=== PATIENT | male | born 1940 | race Caucasian/White ===

== ENCOUNTER → 2017-05-18 13:59 | Outpatient (CLI) | payer MEDICARE, OTHER, SELFPAY ==
[2017-05-18 14:41] LABS: Absolute Lymphocyte Count 1.85 X10^3/ul (0.83-4.51); Basophil# 0.01 X10^3/uL; Basophil% 0.2 % (0-1); Eosinophil# 0.14 X10^3/uL; Eosinophils% 2.5 % (0-5); Hemoglobin 15.1 g/dl (13.0-16.5); Lymphocyte # 1.85 X10^3/ul (4.0); Lymphocyte % 33.5 % (19-41); Mean Corp Hgb Conc 34.3 g/gl (32-36); Mean Corpuscular Hgb 31.5 pg (27.0-32.0); Mean Corpuscular Volume 91.9 fL (80-94); Mean Platelet Vol. 9.4 fl (6.2-12.0); Monocyte# 0.53 X10^3/uL; Monocyte% 9.6 % (0-10); Neutrophil # 2.98 X10^3/uL (2.7-7.7); Platelet Count 203 K/mm3 (150-450); Red Blood Count 4.79 M/mm3 (4.6-6.2); White Blood Count 5.5 K/mm3 (4.4-11.0)
[2017-05-18 14:54] LABS: POSITIVE COUNT NO; POSITIVE DIFFERENTIAL NO; POSITIVE MORPHOLOGY NO
[2017-05-18 14:58] LABS: Anion Gap 7 (5-15); BUN 13 mg/dL (7-18); BUN/Creat Ratio 10.6 RATIO (10-20); Chloride 106 mmol/L (98-107); Creatinine, Serum 1.23 mg/dL (0.70-1.30); EST Glomerular Filtration Rate 60 mL/min (>60); Est Glom Filt Rate - Afr Amer 73 mL/min (>60); Glucose 195 mg/dL (74-106); Magnesium 2.2 mg/dL (1.6-2.6); Potassium 4.6 mmol/L (3.5-5.1); Sodium Level 140 mmol/L (136-145)
[2017-05-18 15:05] LABS: AST(SGOT) 14 U/L (15-37); Alanine Aminotransfer ALT/SGPT 27 U/L (16-61); Alkaline Phosphatase 59 U/L (45-117); Bilirubin, Direct 0.17 mg/dL (0.00-0.30); Cholesterol 135 mg/dL (200); Globulin 3.3 g/dL (2.2-4.2); High Density Lipoprotein 56 mg/dL; Protein, Total 7.3 g/dL (6.4-8.2); Triglycerides 89 mg/dL; Very Low Density Lipoprotein 18 mg/dL (5-40)
== END ==
PROVIDERS: Physician Assistant Medical; Family Provider Family Medicine; PCP Family Medicine; Visit Provider Internal Medicine Cardiovascular Disease
DX: E78.5 Hyperlipidemia, unspecified (principal); I48.91 Unspecified atrial fibrillation; Z79.899 Other long term (current) drug therapy
CPT/HCPCS: 36415; 80048; 80061; 80076; 83735; 85025

== ENCOUNTER → 2017-09-19 21:20 | Outpatient (CLI) | payer MEDICARE, OTHER, SELFPAY | PROVIDERS: Visit Provider Nurse Practitioner Adult Health | DX: R82.99 Other abnormal findings in urine (principal) | CPT/HCPCS: 87086; 87088 ==

== ENCOUNTER 2018-01-18 17:20 | Inpatient (IN) | payer MEDICARE, OTHER, SELFPAY ==
[2017-12-20 14:38] VITALS: BMI 29.2
[2018-01-18 19:43] VITALS: BP 116/96; PULSE 60; RESP 18; TEMP 35.7; O2SAT 97; BMI 27.9
--- NOTE | 2018-01-18 19:44 | NURSING ---
Pt admitted to room 19 from home via wheelchair, patient oriented to room and call light system explained.
[2018-01-18 22:12] VITALS: BMI 27.9
[2018-01-18 22:50] VITALS: BP 107/77; PULSE 64
[2018-01-18] MEDS: Metoprolol Tartrate 25 MG Tablet PO (22:50)
[2018-01-18] MEDS: Aspirin E.C. 81 MG Tablet PO (22:51)
[2018-01-18] MEDS: Ranolazine 500 MG Tablet PO (22:51)
[2018-01-18] MEDS: Menthol/Lanolin/Calamine/Znox 113 GM Tube 1 APPLIC TOPICAL (22:51)
[2018-01-18] MEDS: Atorvastatin Calcium 40 MG Tablet PO (22:51)
[2018-01-18] MEDS: traMADol 50 MG Tablet PO (22:51)
[2018-01-18] MEDS: Acyclovir 200 MG Capsule 400 MG PO (22:51)
[2018-01-18] MEDS: Glucerna Shake 120 ML LIQUID PO (22:56)
[2018-01-18] MEDS: Hydrocortisone 2.5% Crm 1 APPLIC TOPICAL (22:57)
--- NOTE | 2018-01-18 23:06 | PCM.HP.STD ---
Problem List (1) Debility Status: Acute (2) Herpes zoster Status: Acute (3) Diabetes mellitus Status: Chronic (4) Coronary artery disease Status: Chronic (5) Stroke Status: Chronic (6) Alzheimer's disease Status: Chronic (7) Depression Status: Chronic (8) Atrial fibrillation Status: Chronic Qualifiers: (9) Hypertension Status: Chronic Qualifiers: (10) Hyperlipidemia Status: Chronic Qualifiers: (11) Diastolic dysfunction Status: Chronic History of Present Illness Date of Admission: 01/18/18 Chief Complaint: Here for rehabilitation, strengthening, prior to discharge home alone. The patient is a 77 year old Male with below past medical history admitted from home with debility, secondary to Herpes Zoster, to TCU, here for rehabilitation, strengthening, prior to discharge home alone. Past Medical History Past Medical History (Chronic Problems): Chronic Problems (Last Updated 12/20/17 @ 14:41 by Tasha Leigh) Diabetes mellitus (Chronic) Coronary artery disease (Chronic) Stroke (Chronic) Alzheimer's disease (Chronic) Depression (Chronic) Atrial fibrillation (Chronic) Hypertension (Chronic) Atherosclerotic heart disease of [place] coronary artery without angina pectoris (Chronic) S/P RCA, LCX, and OM PTCA/SARKIS in April and May of 2014; Stroke determined by clinical assessment (Chronic) Hyperlipidemia (Chronic) Presence of other cardiac implants and grafts (Chronic) Staged PCI done 05/15/14 to RCA & then readmitted 05/26/14 for acute coronary syndrome-PCI completed 05/28/14 Non-ST elevation (NSTEMI) myocardial infarction (Chronic) Diastolic dysfunction (Chronic) 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) Second degree atrioventricular block (Chronic) Presence of cardiac pacemaker (Chronic) Pacemaker implant 05/15/14 H/O: stroke (Chronic) H/O myocardial infarction, greater than 8 weeks (Chronic) Diabetes type 2, uncontrolled (Chronic) Dementia (Chronic) Medical History: Medical History (Last Updated 12/20/17 @ 14:41 by Tasha Leigh) Atrial fibrillation (Chronic) I48.91 Hypertension (Chronic) I10 Atherosclerotic heart disease of [place] coronary artery without angina pectoris (Chronic) I25.10 S/P RCA, LCX, and OM PTCA/SARKIS in April and May of 2014; Hyperlipidemia (Chronic) E78.5 Non-ST elevation (NSTEMI) myocardial infarction (Chronic) I21.4 Diastolic dysfunction (Chronic) I51.9 Second degree atrioventricular block (Chronic) I44.1 H/O: stroke (Chronic) Z86.73 Diabetes type 2, uncontrolled (Chronic) E11.65 Dementia (Chronic) F03.90 Depression F32.9 Allergies citalopram [From Celexa] Adverse Reaction (Intermediate, Verified 12/20/17 14:38) Unknown isosorbide [From Imdur] Adverse Reaction (Verified 01/18/18 20:01) Low blood pressure lisinopril Adverse Reaction (Verified 01/18/18 20:01) Low blood pressure Home Medications: Ambulatory Orders Medication Instructions Recorded aspirin 81 mg tablet,delayed 81 mg PO QHS tab 05/16/17 release atorvastatin 20 mg tablet 40 mg PO QHS 05/16/17 clopidogrel 75 mg tablet 75 mg PO QDAY tab 05/16/17 furosemide 20 mg tablet 20 mg PO QDAY PRN 05/16/17 nitroglycerin 0.4 mg sublingual 0.4 mg SUBLINGUAL Q5M PRN 05/16/17 tablet pantoprazole 40 mg tablet,delayed 40 mg PO QDAY 05/16/17 release ranolazine ER 500 mg 500 mg PO BID tab 05/16/17 tablet,extended release,12 hr tramadol 50 mg tablet See Rx Instructions PO Q6H PRN tab 05/16/17 glucosamine sulfate 1,000 mg 1,000 mg PO QDAY cap 05/18/17 capsule metformin 500 mg tablet 500 mg PO BID tab 09/12/17 multivitamin tablet 1 tab PO QDAY 09/12/17 vitamin E (dl, acetate) 400 unit 400 unit PO QDAY 09/12/17 capsule polyethylene glycol 3350 17 17 g PO QODAY g 12/20/17 gram/dose oral powder venlafaxine ER 37.5 mg 18.25 mg PO DAILY cap 12/20/17 capsule,extended release 24 hr Acyclovir [Zovirax] 400 mg PO TID 01/18/18 Glucerna Shake 120 ml PO TIDCM 01/18/18 Hydrocortisone 2.5% Crm [Hytone] 1 applic TOPICAL TID PRN PRN 01/18/18 Ketoconazole 120 ml TP QODAY 01/18/18 Menthol/Lanolin/Calamine/Znox 1 applic TOPICAL TID 01/18/18 [Calmoseptine Ointment] Metoprolol Tartrate 25 mg PO BID 01/18/18 Polyethylene Glycol 3350 [Miralax] 17 gm PO DAILY 01/18/18 Talc/Cellulos/Chloroxy/Aldioxa 71 gm TP BID 01/18/18 [Zeasorb Powder] Surgical History: Surgical History (Last Reviewed 12/20/17 @ 14:41 by Tasha Leigh) Presence of other cardiac implants and grafts (Chronic) Z95.818 Staged PCI done 05/15/14 to RCA & then readmitted 05/26/14 for acute coronary syndrome-PCI completed 05/28/14 Presence of cardiac pacemaker (Chronic) Z95.0 Pacemaker implant 05/15/14 Surgical History: coronary bypass surgery, pacemaker implantation Psychiatric History: Depression Lives: Alone Smoking Status: Never smoker Tobacco Use: Non-smoker Alcohol: None Drugs: None - *Family History Maternal Family History: Family History (Last Reviewed 12/20/17 @ 14:41 by Tasha Leigh) Other CVA (cerebral vascular accident) History Items: No pertinent history Paternal Family History: Family History (Last Reviewed 12/20/17 @ 14:41 by Tasha Leigh) Other CVA (cerebral vascular accident) History Items: No pertinent history Review of Systems Constitutional: Denies: Chills, Fever, Weight Change HEENT: Denies: Head Aches, Sinus Congestion, Sinus Drainage Cardiovascular: Denies: Chest Pain, Palpitations Respiratory: Denies: Cough, Shortness of breath at rest, Sputum production Gastrointestinal: Denies: Abdominal Pain, Nausea, Vomiting Genitourinary: Denies: Dysuria Musculoskeletal: Denies: Joint Pain, Joint Tenderness Skin: Denies: Rash, Wounds Neurological: Denies: Numbness, Tingling, Focal weakness Psychiatric: Denies: Anxiety, Depression, Homicidal Ideations, Suicidal Ideations Hematologic/ Lymphatic: Denies: Easy Bruising, Easy Bleeding VTE Information - Inpt Only VTE Present on Admission: No VTE Mechan Device Prophylaxis: Knee High JOHNY Hose VTE Pharm Prophylaxis ordered?: Yes Patient Problems: Active and Suspected Problems (Last Updated 12/20/17 @ 14:41 by Tasha Leigh) Debility (Acute) Herpes zoster (Acute) - Physical Exam General: Alert, Oriented x3, Cooperative HEENT: Atraumatic, PERRLA, EOMI, Normocephalic Neck: Supple, No JVD, Negative Carotid Bruits Lungs: Clear to auscultation, Normal air movement Cardiovascular: Regular rate, No murmurs Abdomen: Bowel Sounds Present, Soft, Non Tender Extremities: No edema, Capillary Refill Less than 3 Seconds Skin: No rashes, No breakdown, Rash Present - Shingles rash left upper abdomen, left lateral flank, left thoracolumbar back. Musculoskeletal: No Tenderness to Palpation of Joints or Extremities Neurological: Cranial nerves II-XII grossly intact Psych/Mental Status: Normal Affect, Appropriate Vital Signs Pulse BP 64 107/77 01/18/18 22:50 01/18/18 22:50 Weight: 98.656 kg Body Mass Index (BMI) 27.9 Assessment/Plan All Active Problems (Last Updated 12/20/17 @ 14:41 by Tasha Leigh) Debility (Acute) Herpes zoster (Acute) Ischemic cardiomyopathy (Acute) Pressure ulcer of right buttock, stage 1 (Acute) Pressure ulcer of left buttock, stage 1 (Acute) 77 year old male with below past medical history admitted from home with debility secondary herpes zoster, to TCU for rehabilitation, strengthening, prior to discharge home alone. Debility - PT/OT. Aphasia - ST. Pain - Tylenol 1000MG Q6H PRN mild pain, Tramadol 50MG Q6H PRN moderate pain. Bowel - Miralax 17GM daily, Senna/colace 1 tablet BID, Dulcolax 10MG daily PRN. Pneumonia vaccination - Administer Prevnar 13 and/or Pneumovax 23 as necessary. DVT prophylaxis - Lovenox 30MG SC daily. Herpes Zoster - Acyclovir 400MG TID x 7 days, Gabapentin 100MG TID for neuropathic pain. Coronary Artery Disease - Metoprolol 25MG BID, Ranexa 500MG BID, Plavix 75MG daily, Aspirin 81MG QHS, NTG 0.4MG SL Q5M PRN. Hyperlipidemia - Atorvastatin 40MG QHS. Chronic diastolic heart failure - Metoprolol 25MG BID, Lasix 20MG daily PRN. Nutrition - Glucerna 120ML TID, MVI daily. Pruritus - Hydrocortisone 2.5% TID PRN. Tinea corporis - Ketoconazole topical Q48H. Skin irritation - Calmoseptine TID buttocks. Diabetes Mellitus II - Metformin 500MG BID. GERD - Pantoprazole 40MG daily. Depression - Venlafaxine 18.25MG daily, resident doing well with chronic senior care use, GDR clinically contraindicated. Vitamin E deficiency - Vitamin E 400IU daily.
--- NOTE | 2018-01-18 23:10 | HP.PCM_ITS ---
Problem List (1) Debility Status: Acute (2) Herpes zoster Status: Acute (3) Diabetes mellitus Status: Chronic (4) Coronary artery disease Status: Chronic (5) Stroke Status: Chronic (6) Alzheimer's disease Status: Chronic (7) Depression Status: Chronic (8) Atrial fibrillation Status: Chronic Qualifiers: (9) Hypertension Status: Chronic Qualifiers: (10) Hyperlipidemia Status: Chronic Qualifiers: (11) Diastolic dysfunction Status: Chronic History of Present Illness Date of Admission: 01/18/18 Chief Complaint: Here for rehabilitation, strengthening, prior to discharge home alone. The patient is a 77 year old Male with below past medical history admitted from home with debility, secondary to Herpes Zoster, to TCU, here for rehabilitation, strengthening, prior to discharge home alone. Past Medical History Past Medical History (Chronic Problems): Chronic Problems (Last Updated 12/20/17 @ 14:41 by Tasha Leigh) Diabetes mellitus (Chronic) Coronary artery disease (Chronic) Stroke (Chronic) Alzheimer's disease (Chronic) Depression (Chronic) Atrial fibrillation (Chronic) Hypertension (Chronic) Atherosclerotic heart disease of [place] coronary artery without angina pectoris (Chronic) S/P RCA, LCX, and OM PTCA/SARKIS in April and May of 2014; Stroke determined by clinical assessment (Chronic) Hyperlipidemia (Chronic) Presence of other cardiac implants and grafts (Chronic) Staged PCI done 05/15/14 to RCA & then readmitted 05/26/14 for acute coronary syndrome-PCI completed 05/28/14 Non-ST elevation (NSTEMI) myocardial infarction (Chronic) Diastolic dysfunction (Chronic) 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) Second degree atrioventricular block (Chronic) Presence of cardiac pacemaker (Chronic) Pacemaker implant 05/15/14 H/O: stroke (Chronic) H/O myocardial infarction, greater than 8 weeks (Chronic) Diabetes type 2, uncontrolled (Chronic) Dementia (Chronic) Medical History: Medical History (Last Updated 12/20/17 @ 14:41 by Tasha Leigh) Atrial fibrillation (Chronic) I48.91 Hypertension (Chronic) I10 Atherosclerotic heart disease of [place] coronary artery without angina pectoris (Chronic) I25.10 S/P RCA, LCX, and OM PTCA/SARKIS in April and May of 2014; Hyperlipidemia (Chronic) E78.5 Non-ST elevation (NSTEMI) myocardial infarction (Chronic) I21.4 Diastolic dysfunction (Chronic) I51.9 Second degree atrioventricular block (Chronic) I44.1 H/O: stroke (Chronic) Z86.73 Diabetes type 2, uncontrolled (Chronic) E11.65 Dementia (Chronic) F03.90 Depression F32.9 Allergies citalopram [From Celexa] Adverse Reaction (Intermediate, Verified 12/20/17 14:38) Unknown isosorbide [From Imdur] Adverse Reaction (Verified 01/18/18 20:01) Low blood pressure lisinopril Adverse Reaction (Verified 01/18/18 20:01) Low blood pressure Home Medications: Ambulatory Orders Medication Instructions Recorded aspirin 81 mg tablet,delayed 81 mg PO QHS tab 05/16/17 release atorvastatin 20 mg tablet 40 mg PO QHS 05/16/17 clopidogrel 75 mg tablet 75 mg PO QDAY tab 05/16/17 furosemide 20 mg tablet 20 mg PO QDAY PRN 05/16/17 nitroglycerin 0.4 mg sublingual 0.4 mg SUBLINGUAL Q5M PRN 05/16/17 tablet pantoprazole 40 mg tablet,delayed 40 mg PO QDAY 05/16/17 release ranolazine ER 500 mg 500 mg PO BID tab 05/16/17 tablet,extended release,12 hr tramadol 50 mg tablet See Rx Instructions PO Q6H PRN tab 05/16/17 glucosamine sulfate 1,000 mg 1,000 mg PO QDAY cap 05/18/17 capsule metformin 500 mg tablet 500 mg PO BID tab 09/12/17 multivitamin tablet 1 tab PO QDAY 09/12/17 vitamin E (dl, acetate) 400 unit 400 unit PO QDAY 09/12/17 capsule polyethylene glycol 3350 17 17 g PO QODAY g 12/20/17 gram/dose oral powder venlafaxine ER 37.5 mg 18.25 mg PO DAILY cap 12/20/17 capsule,extended release 24 hr Acyclovir [Zovirax] 400 mg PO TID 01/18/18 Glucerna Shake 120 ml PO TIDCM 01/18/18 Hydrocortisone 2.5% Crm [Hytone] 1 applic TOPICAL TID PRN PRN 01/18/18 Ketoconazole 120 ml TP QODAY 01/18/18 Menthol/Lanolin/Calamine/Znox 1 applic TOPICAL TID 01/18/18 [Calmoseptine Ointment] Metoprolol Tartrate 25 mg PO BID 01/18/18 Polyethylene Glycol 3350 [Miralax] 17 gm PO DAILY 01/18/18 Talc/Cellulos/Chloroxy/Aldioxa 71 gm TP BID 01/18/18 [Zeasorb Powder] Surgical History: Surgical History (Last Reviewed 12/20/17 @ 14:41 by Tasha Leigh) Presence of other cardiac implants and grafts (Chronic) Z95.818 Staged PCI done 05/15/14 to RCA & then readmitted 05/26/14 for acute coronary syndrome-PCI completed 05/28/14 Presence of cardiac pacemaker (Chronic) Z95.0 Pacemaker implant 05/15/14 Surgical History: coronary bypass surgery, pacemaker implantation Psychiatric History: Depression Lives: Alone Smoking Status: Never smoker Tobacco Use: Non-smoker Alcohol: None Drugs: None - *Family History Maternal Family History: Family History (Last Reviewed 12/20/17 @ 14:41 by Tasha Leigh) Other CVA (cerebral vascular accident) History Items: No pertinent history Paternal Family History: Family History (Last Reviewed 12/20/17 @ 14:41 by Tasha Leigh) Other CVA (cerebral vascular accident) History Items: No pertinent history Review of Systems Constitutional: Denies: Chills, Fever, Weight Change HEENT: Denies: Head Aches, Sinus Congestion, Sinus Drainage Cardiovascular: Denies: Chest Pain, Palpitations Respiratory: Denies: Cough, Shortness of breath at rest, Sputum production Gastrointestinal: Denies: Abdominal Pain, Nausea, Vomiting Genitourinary: Denies: Dysuria Musculoskeletal: Denies: Joint Pain, Joint Tenderness Skin: Denies: Rash, Wounds Neurological: Denies: Numbness, Tingling, Focal weakness Psychiatric: Denies: Anxiety, Depression, Homicidal Ideations, Suicidal Ideations Hematologic/ Lymphatic: Denies: Easy Bruising, Easy Bleeding VTE Information - Inpt Only VTE Present on Admission: No VTE Mechan Device Prophylaxis: Knee High JOHNY Hose VTE Pharm Prophylaxis ordered?: Yes Patient Problems: Active and Suspected Problems (Last Updated 12/20/17 @ 14:41 by Tasha Leigh) Debility (Acute) Herpes zoster (Acute) - Physical Exam General: Alert, Oriented x3, Cooperative HEENT: Atraumatic, PERRLA, EOMI, Normocephalic Neck: Supple, No JVD, Negative Carotid Bruits Lungs: Clear to auscultation, Normal air movement Cardiovascular: Regular rate, No murmurs Abdomen: Bowel Sounds Present, Soft, Non Tender Extremities: No edema, Capillary Refill Less than 3 Seconds Skin: No rashes, No breakdown, Rash Present - Shingles rash left upper abdomen, left lateral flank, left thoracolumbar back. Musculoskeletal: No Tenderness to Palpation of Joints or Extremities Neurological: Cranial nerves II-XII grossly intact Psych/Mental Status: Normal Affect, Appropriate Vital Signs Pulse BP 64 107/77 01/18/18 22:50 01/18/18 22:50 Weight: 98.656 kg Body Mass Index (BMI) 27.9 Assessment/Plan All Active Problems (Last Updated 12/20/17 @ 14:41 by Tasha Leigh) Debility (Acute) Herpes zoster (Acute) Ischemic cardiomyopathy (Acute) Pressure ulcer of right buttock, stage 1 (Acute) Pressure ulcer of left buttock, stage 1 (Acute) 77 year old male with below past medical history admitted from home with debility secondary herpes zoster, to TCU for rehabilitation, strengthening, prior to discharge home alone. * Debility - PT/OT. * Aphasia - ST. * Pain - Tylenol 1000MG Q6H PRN mild pain, Tramadol 50MG Q6H PRN moderate pain. * Bowel - Miralax 17GM daily, Senna/colace 1 tablet BID, Dulcolax 10MG daily PRN. * Pneumonia vaccination - Administer Prevnar 13 and/or Pneumovax 23 as necessary. * DVT prophylaxis - Lovenox 30MG SC daily. * Herpes Zoster - Acyclovir 400MG TID x 7 days, Gabapentin 100MG TID for neuropathic pain. * Coronary Artery Disease - Metoprolol 25MG BID, Ranexa 500MG BID, Plavix 75MG daily, Aspirin 81MG QHS, NTG 0.4MG SL Q5M PRN. * Hyperlipidemia - Atorvastatin 40MG QHS. * Chronic diastolic heart failure - Metoprolol 25MG BID, Lasix 20MG daily PRN. * Nutrition - Glucerna 120ML TID, MVI daily. * Pruritus - Hydrocortisone 2.5% TID PRN. * Tinea corporis - Ketoconazole topical Q48H. * Skin irritation - Calmoseptine TID buttocks. * Diabetes Mellitus II - Metformin 500MG BID. * GERD - Pantoprazole 40MG daily. 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 * Vitamin E deficiency - Vitamin E 400IU daily.
[2018-01-19] MEDS: Acetaminophen 500 MG Tablet 1000 MG PO ×3 (02:14→17:29)
--- NOTE | 2018-01-19 04:55 | NURSING ---
Pt remains in airborne isolation during this shift. All care provided in room
[2018-01-19 06:06] LABS: Absolute Lymphocyte Count 0.73 X10^3/ul (0.83-4.51); Absolute Neutrophil Count 2.8 X10^3/uL (2.0-7.7); Basophil# 0.04 X10^3/uL; Basophil% 0.9 % (0-1); Eosinophils% 4.6 % (0-5); Hematocrit 40.4 % (40-54); Hemoglobin 13.8 g/dl (13.0-16.5); Lymphocyte # 0.73 X10^3/ul (4.0); Lymphocyte % 16.7 % (19-41); Mean Corp Hgb Conc 34.2 g/gl (32-36); Mean Corpuscular Hgb 31.6 pg (27.0-32.0); Mean Corpuscular Volume 92.4 fL (80-94); Mean Platelet Vol. 9.3 fl (6.2-12.0); Monocyte# 0.65 X10^3/uL; Monocyte% 14.8 % (0-10); Neutrophil # 2.75 X10^3/uL (2.7-7.7); Neutrophil % 62.8 % (47-70); Platelet Count 121 K/mm3 (150-450); RBC Distribution Width CV 13.3 % (11.6-14.6); Red Blood Count 4.37 M/mm3 (4.6-6.2); White Blood Count 4.4 K/mm3 (4.4-11.0)
[2018-01-19 06:13] LABS: POSITIVE COUNT NO; POSITIVE DIFFERENTIAL NO; POSITIVE MORPHOLOGY NO
[2018-01-19 06:53] LABS: Anion Gap 10 (5-15); BUN 16 mg/dL (7-18); BUN/Creat Ratio 16.1 RATIO (10-20); Calcium,Total 8.4 mg/dL (8.5-10.1); Chloride 105 mmol/L (98-107); Creatinine, Serum 0.99 mg/dL (0.70-1.30); EST Glomerular Filtration Rate 77 mL/min (>60); Est Glom Filt Rate - Afr Amer 94 mL/min (>60); Estimated Creatinine Clearance 70.35 ml/min; Glucose 155 mg/dL (74-106); Potassium 4.2 mmol/L (3.5-5.1); Sodium Level 139 mmol/L (136-145)
[2018-01-19] MEDS: traMADol 50 MG Tablet PO (06:54)
--- NOTE | 2018-01-19 07:11 | NURSING ---
Patient very sleepy this am. 0600 med held till later ok per RYAN Lopez. aware of same and agreed. Will cont to monitor.
[2018-01-19 08:07] VITALS: BP 112/78; PULSE 70
[2018-01-19] MEDS: Vitamin E 400 UNITS Capsule PO (08:07)
[2018-01-19] MEDS: Metoprolol Tartrate 25 MG Tablet PO ×2 (08:07→16:55)
[2018-01-19] MEDS: Clopidogrel Bisulfate 75 MG Tablet PO (08:07)
[2018-01-19] MEDS: Pantoprazole Sodium 40 MG Tablet PO (08:07)
[2018-01-19] MEDS: Acyclovir 200 MG Capsule 400 MG PO ×3 (08:07→21:44)
[2018-01-19] MEDS: Multivitamins,Therapeutic Tablet 1 TABLET PO (08:07)
[2018-01-19] MEDS: Enoxaparin 30 MG/0.3 ML Syringe SC (08:08)
[2018-01-19] MEDS: Senna/Docusate Sodium 1 Tablet PO ×2 (08:09→16:55)
[2018-01-19] MEDS: Polyethylene Glycol 3350 17 GM PACKET PO (08:09)
[2018-01-19] MEDS: Glucerna Shake 120 ML LIQUID PO ×3 (08:12→16:55)
[2018-01-19] MEDS: Menthol/Lanolin/Calamine/Znox 113 GM Tube 1 APPLIC TOPICAL ×3 (08:21→21:44)
[2018-01-19] MEDS: Venlafaxine XR 37.5 MG Capsule PO (10:44)
[2018-01-19] MEDS: Ranolazine 500 MG Tablet PO ×2 (10:44→16:55)
[2018-01-19] MEDS: Tuberculin,Purif.prot.deriv. 50 TU/ML Vial 5 ML ID (11:12)
[2018-01-19] MEDS: Gabapentin 100 MG Capsule PO ×2 (13:02→16:55)
--- NOTE | 2018-01-19 13:07 | NURSING ---
Pt remains in airborne isolation this shift. All nursing care and therapy provided in room.
[2018-01-19 15:20] VITALS: BP 114/70; PULSE 60; RESP 18; TEMP 35.9; O2SAT 97
[2018-01-19 16:55] VITALS: BP 114/70; PULSE 60
[2018-01-19 16:55] LABS: Bedside Glucose 112 mg/dL (70-110)
[2018-01-19] MEDS: Atorvastatin Calcium 40 MG Tablet PO (21:44)
[2018-01-19] MEDS: Aspirin E.C. 81 MG Tablet PO (21:44)
[2018-01-19] MEDS: traMADol 50 MG Tablet 100 MG PO (23:15)
[2018-01-20] MEDS: Polyethylene Glycol 3350 17 GM PACKET PO (06:42)
[2018-01-20] MEDS: Pantoprazole Sodium 40 MG Tablet PO (06:43)
[2018-01-20] MEDS: Acyclovir 200 MG Capsule 400 MG PO ×3 (06:43→20:53)
[2018-01-20] MEDS: Senna/Docusate Sodium 1 Tablet PO ×2 (06:43→17:08)
[2018-01-20] MEDS: Ranolazine 500 MG Tablet PO ×2 (06:43→17:08)
[2018-01-20] MEDS: Enoxaparin 30 MG/0.3 ML Syringe SC (06:44)
[2018-01-20 06:45] VITALS: BP 118/74; PULSE 62
[2018-01-20] MEDS: Metoprolol Tartrate 25 MG Tablet PO ×2 (06:45→17:08)
[2018-01-20] MEDS: Menthol/Lanolin/Calamine/Znox 113 GM Tube 1 APPLIC TOPICAL ×3 (06:45→20:57)
[2018-01-20 07:01] LABS: Bedside Glucose 121 mg/dL (70-110)
[2018-01-20] MEDS: Acetaminophen 500 MG Tablet 1000 MG PO ×2 (07:04→23:09)
[2018-01-20] MEDS: Gabapentin 100 MG Capsule PO ×3 (08:44→17:08)
[2018-01-20] MEDS: Vitamin E 400 UNITS Capsule PO (08:44)
[2018-01-20] MEDS: Glucerna Shake 120 ML LIQUID PO ×3 (08:44→17:08)
[2018-01-20] MEDS: Multivitamins,Therapeutic Tablet 1 TABLET PO (08:44)
[2018-01-20] MEDS: Venlafaxine XR 37.5 MG Capsule PO (08:44)
[2018-01-20] MEDS: traMADol 50 MG Tablet 100 MG PO (11:13)
[2018-01-20] MEDS: Clopidogrel Bisulfate 75 MG Tablet PO (13:42)
[2018-01-20] MEDS: Ketoconazole Cream 1 APPLIC TOPICAL (13:44)
[2018-01-20 16:00] VITALS: BP 112/71; PULSE 81; RESP 18; TEMP 36.2; O2SAT 93
[2018-01-20 17:08] VITALS: BP 112/71; PULSE 81
[2018-01-20] MEDS: Atorvastatin Calcium 40 MG Tablet PO (20:53)
[2018-01-20] MEDS: Aspirin E.C. 81 MG Tablet PO (20:53)
--- NOTE | 2018-01-20 23:39 | NURSING ---
All care provided in room dt pt remaining in isolation precautions.
[2018-01-21] MEDS: traMADol 50 MG Tablet 100 MG PO (03:05)
[2018-01-21 06:33] VITALS: BP 119/72; PULSE 62
[2018-01-21] MEDS: Ranolazine 500 MG Tablet PO ×2 (06:33→17:43)
[2018-01-21] MEDS: Acyclovir 200 MG Capsule 400 MG PO ×3 (06:33→21:11)
[2018-01-21] MEDS: Pantoprazole Sodium 40 MG Tablet PO (06:33)
[2018-01-21] MEDS: Clopidogrel Bisulfate 75 MG Tablet PO (06:33)
[2018-01-21] MEDS: Metoprolol Tartrate 25 MG Tablet PO ×2 (06:33→17:43)
[2018-01-21] MEDS: Menthol/Lanolin/Calamine/Znox 113 GM Tube 1 APPLIC TOPICAL ×3 (06:39→21:12)
[2018-01-21 06:45] LABS: Bedside Glucose 143 mg/dL (70-110)
[2018-01-21] MEDS: Vitamin E 400 UNITS Capsule PO (07:56)
[2018-01-21] MEDS: Glucerna Shake 120 ML LIQUID PO ×3 (07:56→17:43)
[2018-01-21] MEDS: Venlafaxine XR 37.5 MG Capsule PO (07:56)
[2018-01-21] MEDS: Multivitamins,Therapeutic Tablet 1 TABLET PO (07:56)
[2018-01-21] MEDS: Gabapentin 100 MG Capsule PO ×3 (07:57→17:43)
--- NOTE | 2018-01-21 11:00 | PCM.PN.RX ---
<Abran Warren D - Last Filed: 01/21/18 11:00> Progress Note - Pharmacy Subjective: [] Objective: Allergies citalopram [From Celexa] Adverse Reaction (Intermediate, Verified 12/20/17 14:38) Unknown isosorbide [From Imdur] Adverse Reaction (Verified 01/18/18 20:01) Low blood pressure lisinopril Adverse Reaction (Verified 01/18/18 20:01) Low blood pressure Current Medications Generic Name Dose Route Start Last Admin Trade Name Freq PRN Reason Stop Dose Admin Acetaminophen 1,000 mg 01/18/18 23:19 01/20/18 23:09 Tylenol PO 1,000 mg Q6H PRN PRN Administration MILD PAIN (1-05/06) Acyclovir 400 mg 01/18/18 22:00 01/21/18 06:33 Zovirax PO 01/25/18 22:01 400 mg TID DAGO Administration Aspirin 81 mg 01/18/18 22:00 01/20/18 20:53 Ecotrin PO 81 mg QHS DAGO Administration Atorvastatin Calcium 40 mg 01/18/18 22:00 01/20/18 20:53 Lipitor PO 40 mg QHS DAGO Administration Bisacodyl 10 mg 01/20/18 07:25 Dulcolax RECTAL DAILY PRN Constipation Calamine/Phenol 1 applic 01/18/18 22:00 01/21/18 06:39 Calmoseptine Ointment TOPICAL 1 applicatio TID DAGO Administration Protocol Clopidogrel Bisulfate 75 mg 01/19/18 06:00 01/21/18 06:33 Plavix PO 75 mg DAILY DAGO Administration Furosemide 20 mg 01/18/18 20:03 Lasix PO DAILY PRN PRN Swelling Gabapentin 100 mg 01/19/18 12:45 01/21/18 07:57 Neurontin PO 100 mg TIDCM DAGO Administration Hydrocortisone 1 applic 01/18/18 20:03 01/18/18 22:57 Hytone TOPICAL 1 applicatio TID PRN PRN Administration ITCHING Protocol Ketoconazole 1 applic 01/20/18 10:00 01/20/18 13:44 Nizoral TOPICAL 1 applicatio Q48 DAGO Administration Metformin HCl 500 mg 01/19/18 08:00 01/21/18 07:56 Glucophage PO 500 mg BIDCM DAGO Administration Metoprolol Tartrate 25 mg 01/19/18 06:00 01/21/18 06:33 Lopressor (Beta Sandra) PO 25 mg BID DAGO Administration Multivitamins 1 tablet 01/19/18 08:00 01/21/18 07:56 Multivitamin PO 1 tablet DAILY@0800 DAGO Administration Nitroglycerin 0.4 mg 01/18/18 20:03 Nitrostat SUBLINGUAL Q5M PRN Angina Nutritional Formula (Lactose Free) 120 ml 01/19/18 07:45 01/21/18 07:56 Glucerna Shake PO 120 ml TIDCM DAGO Administration Pantoprazole Sodium 40 mg 01/19/18 06:00 01/21/18 06:33 Protonix PO 40 mg DAILY DAGO Administration Polyethylene Glycol 17 gm 01/19/18 06:00 01/21/18 06:34 Miralax PO Not Given DAILY DAGO Ranolazine 500 mg 01/19/18 06:00 01/21/18 06:33 Ranexa PO 500 mg BID DAOG Administration Senna/Docusate Sodium 1 tablet 01/19/18 06:00 01/21/18 06:34 Senokot-S, Annette-Colace PO Not Given BID DAGO Tramadol HCl 100 mg 01/19/18 11:50 01/21/18 03:05 Ultram PO 100 mg Q6H PRN PRN Administration MOD-SEVERE PAIN (4-10/10) Tuberculin PPD 5 tu 01/26/18 10:00 Tubersol, Aplisol, Ppd ID 01/26/18 10:01 X1 ONE Venlafaxine HCl 37.5 mg 01/20/18 08:00 01/21/18 07:56 Effexor Xr PO 37.5 mg DAILY@0800 DAGO Administration Vitamin E 400 units 01/20/18 08:00 01/21/18 07:56 Vitamin E PO 400 units DAILY@0800 [facility] Administration Problem List (Last Updated 12/20/17 @ 14:41 by Tasha Leigh) Debility (Acute) Herpes zoster (Acute) Diabetes mellitus (Chronic) Coronary artery disease (Chronic) Stroke (Chronic) Alzheimer's disease (Chronic) Depression (Chronic) Vital Signs Temp Pulse Resp BP Pulse Ox 97.1 F L 62 18 119/72 93 01/20/18 16:00 01/21/18 06:33 01/20/18 16:00 01/21/18 06:33 01/20/18 16:00 Oxygen Delivery Method Room Air Weight: 98.656 kg Body Mass Index (BMI) 27.9 Sodium 139 mmol/L (136-145) 01/19/18 05:37 Potassium 4.2 mmol/L (3.5-5.1) 01/19/18 05:37 Chloride 105 mmol/L (98-107) 01/19/18 05:37 Carbon Dioxide 24.0 mmol/L (21.0-32.0) 01/19/18 05:37 Anion Gap 10 (5-15) 01/19/18 05:37 BUN 16 mg/dL (7-18) 01/19/18 05:37 Creatinine 0.99 mg/dL (0.70-1.30) 01/19/18 05:37 Est GFR (MDRD) Af Amer 94 mL/min (>60) 01/19/18 05:37 Est GFR (MDRD) Non-Af 77 mL/min (>60) 01/19/18 05:37 BUN/Creatinine Ratio 16.1 RATIO (10-20) 01/19/18 05:37 Glucose 155 mg/dL (74-106) H 01/19/18 05:37 Assessment/Plan: 1) Pain APAP, tramadol prn, gabapentin. Continue to monitor daily pain scores, prn medication use. 2) CAD/CHF ASA, atorvastatin, clopidogrel, furosemide prn, metoprolol, prn ntg, ranolazine. Continue to monitor lipids, BP/HR, renal function, electrolytes, swelling, s/s chest pain. 3) DM2 Metformin. Continue to monitor BGT, renal function. 4) GI Pantoprazole daily. Continue to monitor s/s GI distress. 5) Herpes Zoster Acyclovir 3x daily. Continue to monitor clinically. Psychotropic Medications: 6) Depression Venlafaxine XR daily. Continue to monitor for depression. Unnecessary Medications: None Bowel Regimen: 7) Senna/s, PEG, prn bisacodyl. Continue to monitor prn medication use, for constipation/diarrhea. Date of Note:: 01/21/18 - Provider Comments Provider responsibility: Provider responsible to enter orders to implement recommendations <Yoan Valenzuela Chi - Last Filed: 01/21/18 15:59> Progress Note - Pharmacy Subjective: [] Objective: Allergies citalopram [From Celexa] Adverse Reaction (Intermediate, Verified 12/20/17 14:38) Unknown isosorbide [From Imdur] Adverse Reaction (Verified 01/18/18 20:01) Low blood pressure lisinopril Adverse Reaction (Verified 01/18/18 20:01) Low blood pressure Current Medications Generic Name Dose Route Start Last Admin Trade Name Freq PRN Reason Stop Dose Admin Acetaminophen 1,000 mg 01/18/18 23:19 01/21/18 14:05 Tylenol PO 1,000 mg Q6H PRN PRN Administration MILD PAIN (1-05/06) Acyclovir 400 mg 01/18/18 22:00 01/21/18 14:01 Zovirax PO 01/25/18 22:01 400 mg TID DAGO Administration Aspirin 81 mg 01/18/18 22:00 01/20/18 20:53 Ecotrin PO 81 mg QHS DAGO Administration Atorvastatin Calcium 40 mg 01/18/18 22:00 01/20/18 20:53 Lipitor PO 40 mg QHS DAGO Administration Bisacodyl 10 mg 01/20/18 07:25 Dulcolax RECTAL DAILY PRN Constipation Calamine/Phenol 1 applic 01/18/18 22:00 01/21/18 11:35 Calmoseptine Ointment TOPICAL 1 applicatio TID DAGO Administration Protocol Clopidogrel Bisulfate 75 mg 01/19/18 06:00 01/21/18 06:33 Plavix PO 75 mg DAILY DAGO Administration Furosemide 20 mg 01/18/18 20:03 Lasix PO DAILY PRN PRN Swelling Gabapentin 100 mg 01/19/18 12:45 01/21/18 11:35 Neurontin PO 100 mg TIDCM DAGO Administration Hydrocortisone 1 applic 01/18/18 20:03 01/18/18 22:57 Hytone TOPICAL 1 applicatio TID PRN PRN Administration ITCHING Protocol Ketoconazole 1 applic 01/20/18 10:00 01/20/18 13:44 Nizoral TOPICAL 1 applicatio Q48 DAGO Administration Metformin HCl 500 mg 01/19/18 08:00 01/21/18 07:56 Glucophage PO 500 mg BIDCM DAGO Administration Metoprolol Tartrate 25 mg 01/19/18 06:00 01/21/18 06:33 Lopressor (Beta Sandra) PO 25 mg BID DAGO Administration Multivitamins 1 tablet 01/19/18 08:00 01/21/18 07:56 Multivitamin PO 1 tablet DAILY@0800 [facility] Administration Nitroglycerin 0.4 mg 01/18/18 20:03 Nitrostat SUBLINGUAL Q5M PRN Angina Nutritional Formula (Lactose Free) 120 ml 01/19/18 07:45 01/21/18 11:35 Glucerna Shake PO 120 ml TIDCM DAGO Administration Pantoprazole Sodium 40 mg 01/19/18 06:00 01/21/18 06:33 Protonix PO 40 mg DAILY [facility] Administration Polyethylene Glycol 17 gm 01/19/18 06:00 01/21/18 06:34 Miralax PO Not Given DAILY [facility] Ranolazine 500 mg 01/19/18 06:00 01/21/18 06:33 Ranexa PO 500 mg BID [facility] Administration Senna/Docusate Sodium 1 tablet 01/19/18 06:00 01/21/18 06:34 Senokot-S, Annette-Colace PO Not Given BID [facility] Tramadol HCl 100 mg 01/19/18 11:50 01/21/18 03:05 Ultram PO 100 mg Q6H PRN PRN Administration MOD-SEVERE PAIN (4-10/10) Tuberculin PPD 5 tu 01/26/18 10:00 Tubersol, Aplisol, Ppd ID 01/26/18 10:01 X1 ONE Venlafaxine HCl 37.5 mg 01/20/18 08:00 01/21/18 07:56 Effexor Xr PO 37.5 mg DAILY@0800 [facility] Administration Vitamin E 400 units 01/20/18 08:00 01/21/18 07:56 Vitamin E PO 400 units DAILY@0800 [facility] Administration Problem List (Last Updated 12/20/17 @ 14:41 by Tasha Leigh) Debility (Acute) Herpes zoster (Acute) Diabetes mellitus (Chronic) Coronary artery disease (Chronic) Stroke (Chronic) Alzheimer's disease (Chronic) Depression (Chronic) Vital Signs Temp Pulse Resp BP Pulse Ox 97.7 F L 60 20 H 110/68 98 01/21/18 15:33 01/21/18 15:33 01/21/18 15:33 01/21/18 15:33 01/21/18 15:33 Oxygen Delivery Method Room Air Weight: 98.656 kg Body Mass Index (BMI) 27.9 Sodium 139 mmol/L (136-145) 01/19/18 05:37 Potassium 4.2 mmol/L (3.5-5.1) 01/19/18 05:37 Chloride 105 mmol/L (98-107) 01/19/18 05:37 Carbon Dioxide 24.0 mmol/L (21.0-32.0) 01/19/18 05:37 Anion Gap 10 (5-15) 01/19/18 05:37 BUN 16 mg/dL (7-18) 01/19/18 05:37 Creatinine 0.99 mg/dL (0.70-1.30) 01/19/18 05:37 Est GFR (MDRD) Af Amer 94 mL/min (>60) 01/19/18 05:37 Est GFR (MDRD) Non-Af 77 mL/min (>60) 01/19/18 05:37 BUN/Creatinine Ratio 16.1 RATIO (10-20) 01/19/18 05:37 Glucose 155 mg/dL (74-106) H 01/19/18 05:37 Assessment/Plan: Psychotropic Medications: Unnecessary Medications: Bowel Regimen: - Provider Comments Provider responsibility: Provider responsible to enter orders to implement recommendations Provider Comments to Recommendations by Pharmacy: Agree
--- NOTE | 2018-01-21 11:08 | PHA.CONS_ITS ---
<Abran Warren D - Last Filed: 01/21/18 11:00> Progress Note - Pharmacy Subjective: [] Objective: Allergies citalopram [From Celexa] Adverse Reaction (Intermediate, Verified 12/20/17 14:38) Unknown isosorbide [From Imdur] Adverse Reaction (Verified 01/18/18 20:01) Low blood pressure lisinopril Adverse Reaction (Verified 01/18/18 20:01) Low blood pressure Current Medications Generic Name Dose Route Start Last Admin Trade Name Freq PRN Reason Stop Dose Admin Acetaminophen 1,000 mg 01/18/18 23:19 01/20/18 23:09 Tylenol PO 1,000 mg Q6H PRN PRN Administration MILD PAIN (1-05/06) Acyclovir 400 mg 01/18/18 22:00 01/21/18 06:33 Zovirax PO 01/25/18 22:01 400 mg TID DAGO Administration Aspirin 81 mg 01/18/18 22:00 01/20/18 20:53 Ecotrin PO 81 mg QHS DAGO Administration Atorvastatin Calcium 40 mg 01/18/18 22:00 01/20/18 20:53 Lipitor PO 40 mg QHS DAGO Administration Bisacodyl 10 mg 01/20/18 07:25 Dulcolax RECTAL DAILY PRN Constipation Calamine/Phenol 1 applic 01/18/18 22:00 01/21/18 06:39 Calmoseptine Ointment TOPICAL 1 applicatio TID DAGO Administration Protocol Clopidogrel Bisulfate 75 mg 01/19/18 06:00 01/21/18 06:33 Plavix PO 75 mg DAILY DAGO Administration Furosemide 20 mg 01/18/18 20:03 Lasix PO DAILY PRN PRN Swelling Gabapentin 100 mg 01/19/18 12:45 01/21/18 07:57 Neurontin PO 100 mg TIDCM DAGO Administration Hydrocortisone 1 applic 01/18/18 20:03 01/18/18 22:57 Hytone TOPICAL 1 applicatio TID PRN PRN Administration ITCHING Protocol Ketoconazole 1 applic 01/20/18 10:00 01/20/18 13:44 Nizoral TOPICAL 1 applicatio Q48 DAGO Administration Metformin HCl 500 mg 01/19/18 08:00 01/21/18 07:56 Glucophage PO 500 mg BIDCM DAGO Administration Metoprolol Tartrate 25 mg 01/19/18 06:00 01/21/18 06:33 Lopressor (Beta Sandra) PO 25 mg BID DAGO Administration Multivitamins 1 tablet 01/19/18 08:00 01/21/18 07:56 Multivitamin PO 1 tablet DAILY@0800 DAGO Administration Nitroglycerin 0.4 mg 01/18/18 20:03 Nitrostat SUBLINGUAL Q5M PRN Angina Nutritional Formula (Lactose Free) 120 ml 01/19/18 07:45 01/21/18 07:56 Glucerna Shake PO 120 ml TIDCM DAGO Administration Pantoprazole Sodium 40 mg 01/19/18 06:00 01/21/18 06:33 Protonix PO 40 mg DAILY DAGO Administration Polyethylene Glycol 17 gm 01/19/18 06:00 01/21/18 06:34 Miralax PO Not Given DAILY DAGO Ranolazine 500 mg 01/19/18 06:00 01/21/18 06:33 Ranexa PO 500 mg BID DAGO Administration Senna/Docusate Sodium 1 tablet 01/19/18 06:00 01/21/18 06:34 Senokot-S, Annette-Colace PO Not Given BID DAGO Tramadol HCl 100 mg 01/19/18 11:50 01/21/18 03:05 Ultram PO 100 mg Q6H PRN PRN Administration MOD-SEVERE PAIN (4-10/10) Tuberculin PPD 5 tu 01/26/18 10:00 Tubersol, Aplisol, Ppd ID 01/26/18 10:01 X1 ONE Venlafaxine HCl 37.5 mg 01/20/18 08:00 01/21/18 07:56 Effexor Xr PO 37.5 mg DAILY@0800 DAGO Administration Vitamin E 400 units 01/20/18 08:00 01/21/18 07:56 Vitamin E PO 400 units DAILY@0800 [facility] Administration Problem List (Last Updated 12/20/17 @ 14:41 by Tasha Leigh) Debility (Acute) Herpes zoster (Acute) Diabetes mellitus (Chronic) Coronary artery disease (Chronic) Stroke (Chronic) Alzheimer's disease (Chronic) Depression (Chronic) Vital Signs Temp Pulse Resp BP Pulse Ox 97.1 F L 62 18 119/72 93 01/20/18 16:00 01/21/18 06:33 01/20/18 16:00 01/21/18 06:33 01/20/18 16:00 Oxygen Delivery Method Room Air Weight: 98.656 kg Body Mass Index (BMI) 27.9 Sodium 139 mmol/L (136-145) 01/19/18 05:37 Potassium 4.2 mmol/L (3.5-5.1) 01/19/18 05:37 Chloride 105 mmol/L (98-107) 01/19/18 05:37 Carbon Dioxide 24.0 mmol/L (21.0-32.0) 01/19/18 05:37 Anion Gap 10 (5-15) 01/19/18 05:37 BUN 16 mg/dL (7-18) 01/19/18 05:37 Creatinine 0.99 mg/dL (0.70-1.30) 01/19/18 05:37 Est GFR (MDRD) Af Amer 94 mL/min (>60) 01/19/18 05:37 Est GFR (MDRD) Non-Af 77 mL/min (>60) 01/19/18 05:37 BUN/Creatinine Ratio 16.1 RATIO (10-20) 01/19/18 05:37 Glucose 155 mg/dL (74-106) H 01/19/18 05:37 Assessment/Plan: 1) Pain APAP, tramadol prn, gabapentin. Continue to monitor daily pain scores, prn medication use. 2) CAD/CHF ASA, atorvastatin, clopidogrel, furosemide prn, metoprolol, prn ntg, ranolazine. Continue to monitor lipids, BP/HR, renal function, electrolytes, swelling, s/s chest pain. 3) DM2 Metformin. Continue to monitor BGT, renal function. 4) GI Pantoprazole daily. Continue to monitor s/s GI distress. 5) Herpes Zoster Acyclovir 3x daily. Continue to monitor clinically. Psychotropic Medications: 6) Depression Venlafaxine XR daily. Continue to monitor for depression. Unnecessary Medications: None Bowel Regimen: 7) Senna/s, PEG, prn bisacodyl. Continue to monitor prn medication use, for constipation/diarrhea. Date of Note:: 01/21/18 - Provider Comments Provider responsibility: Provider responsible to enter orders to implement recommendations <Yoan Valenzuela Chi - Last Filed: 01/21/18 15:59> Progress Note - Pharmacy Subjective: [] Objective: Allergies citalopram [From Celexa] Adverse Reaction (Intermediate, Verified 12/20/17 14:38) Unknown isosorbide [From Imdur] Adverse Reaction (Verified 01/18/18 20:01) Low blood pressure lisinopril Adverse Reaction (Verified 01/18/18 20:01) Low blood pressure Current Medications Generic Name Dose Route Start Last Admin Trade Name Freq PRN Reason Stop Dose Admin Acetaminophen 1,000 mg 01/18/18 23:19 01/21/18 14:05 Tylenol PO 1,000 mg Q6H PRN PRN Administration MILD PAIN (1-05/06) Acyclovir 400 mg 01/18/18 22:00 01/21/18 14:01 Zovirax PO 01/25/18 22:01 400 mg TID DAGO Administration Aspirin 81 mg 01/18/18 22:00 01/20/18 20:53 Ecotrin PO 81 mg QHS DAGO Administration Atorvastatin Calcium 40 mg 01/18/18 22:00 01/20/18 20:53 Lipitor PO 40 mg QHS DAGO Administration Bisacodyl 10 mg 01/20/18 07:25 Dulcolax RECTAL DAILY PRN Constipation Calamine/Phenol 1 applic 01/18/18 22:00 01/21/18 11:35 Calmoseptine Ointment TOPICAL 1 applicatio TID DAGO Administration Protocol Clopidogrel Bisulfate 75 mg 01/19/18 06:00 01/21/18 06:33 Plavix PO 75 mg DAILY DAGO Administration Furosemide 20 mg 01/18/18 20:03 Lasix PO DAILY PRN PRN Swelling Gabapentin 100 mg 01/19/18 12:45 01/21/18 11:35 Neurontin PO 100 mg TIDCM DAGO Administration Hydrocortisone 1 applic 01/18/18 20:03 01/18/18 22:57 Hytone TOPICAL 1 applicatio TID PRN PRN Administration ITCHING Protocol Ketoconazole 1 applic 01/20/18 10:00 01/20/18 13:44 Nizoral TOPICAL 1 applicatio Q48 DAGO Administration Metformin HCl 500 mg 01/19/18 08:00 01/21/18 07:56 Glucophage PO 500 mg BIDCM DAGO Administration Metoprolol Tartrate 25 mg 01/19/18 06:00 01/21/18 06:33 Lopressor (Beta Sandra) PO 25 mg BID DAGO Administration Multivitamins 1 tablet 01/19/18 08:00 01/21/18 07:56 Multivitamin PO 1 tablet DAILY@0800 [facility] Administration Nitroglycerin 0.4 mg 01/18/18 20:03 Nitrostat SUBLINGUAL Q5M PRN Angina Nutritional Formula (Lactose Free) 120 ml 01/19/18 07:45 01/21/18 11:35 Glucerna Shake PO 120 ml TIDCM DAGO Administration Pantoprazole Sodium 40 mg 01/19/18 06:00 01/21/18 06:33 Protonix PO 40 mg DAILY [facility] Administration Polyethylene Glycol 17 gm 01/19/18 06:00 01/21/18 06:34 Miralax PO Not Given DAILY [facility] Ranolazine 500 mg 01/19/18 06:00 01/21/18 06:33 Ranexa PO 500 mg BID [facility] Administration Senna/Docusate Sodium 1 tablet 01/19/18 06:00 01/21/18 06:34 Senokot-S, Annette-Colace PO Not Given BID [facility] Tramadol HCl 100 mg 01/19/18 11:50 01/21/18 03:05 Ultram PO 100 mg Q6H PRN PRN Administration MOD-SEVERE PAIN (4-10/10) Tuberculin PPD 5 tu 01/26/18 10:00 Tubersol, Aplisol, Ppd ID 01/26/18 10:01 X1 ONE Venlafaxine HCl 37.5 mg 01/20/18 08:00 01/21/18 07:56 Effexor Xr PO 37.5 mg DAILY@0800 [facility] Administration Vitamin E 400 units 01/20/18 08:00 01/21/18 07:56 Vitamin E PO 400 units DAILY@0800 [facility] Administration Problem List (Last Updated 12/20/17 @ 14:41 by Tasha Leigh) Debility (Acute) Herpes zoster (Acute) Diabetes mellitus (Chronic) Coronary artery disease (Chronic) Stroke (Chronic) Alzheimer's disease (Chronic) Depression (Chronic) Vital Signs Temp Pulse Resp BP Pulse Ox 97.7 F L 60 20 H 110/68 98 01/21/18 15:33 01/21/18 15:33 01/21/18 15:33 01/21/18 15:33 01/21/18 15:33 Oxygen Delivery Method Room Air Weight: 98.656 kg Body Mass Index (BMI) 27.9 Sodium 139 mmol/L (136-145) 01/19/18 05:37 Potassium 4.2 mmol/L (3.5-5.1) 01/19/18 05:37 Chloride 105 mmol/L (98-107) 01/19/18 05:37 Carbon Dioxide 24.0 mmol/L (21.0-32.0) 01/19/18 05:37 Anion Gap 10 (5-15) 01/19/18 05:37 BUN 16 mg/dL (7-18) 01/19/18 05:37 Creatinine 0.99 mg/dL (0.70-1.30) 01/19/18 05:37 Est GFR (MDRD) Af Amer 94 mL/min (>60) 01/19/18 05:37 Est GFR (MDRD) Non-Af 77 mL/min (>60) 01/19/18 05:37 BUN/Creatinine Ratio 16.1 RATIO (10-20) 01/19/18 05:37 Glucose 155 mg/dL (74-106) H 01/19/18 05:37 Assessment/Plan: Psychotropic Medications: Unnecessary Medications: Bowel Regimen: - Provider Comments Provider responsibility: Provider responsible to enter orders to implement recommendations Provider Comments to Recommendations by Pharmacy: Agree
[2018-01-21] MEDS: Acetaminophen 500 MG Tablet 1000 MG PO (14:05)
[2018-01-21 15:33] VITALS: BP 110/68; PULSE 60; RESP 20; TEMP 36.5; O2SAT 98
--- NOTE | 2018-01-21 16:25 | NURSING ---
Pt remains in airborne isolation this shift. All nursing care provided in room.
[2018-01-21 17:43] VITALS: BP 110/68; PULSE 60
[2018-01-21] MEDS: Senna/Docusate Sodium 1 Tablet PO (17:43)
[2018-01-21] MEDS: Atorvastatin Calcium 40 MG Tablet PO (21:11)
[2018-01-21] MEDS: Aspirin E.C. 81 MG Tablet PO (21:11)
[2018-01-22] MEDS: Acetaminophen 500 MG Tablet 1000 MG PO (01:27)
[2018-01-22] MEDS: traMADol 50 MG Tablet 100 MG PO ×2 (02:03→16:05)
[2018-01-22] MEDS: Ranolazine 500 MG Tablet PO ×2 (06:20→21:31)
[2018-01-22] MEDS: Clopidogrel Bisulfate 75 MG Tablet PO (06:20)
[2018-01-22] MEDS: Pantoprazole Sodium 40 MG Tablet PO (06:20)
[2018-01-22] MEDS: Acyclovir 200 MG Capsule 400 MG PO ×3 (06:20→21:31)
[2018-01-22] MEDS: Senna/Docusate Sodium 1 Tablet PO ×2 (06:20→21:31)
[2018-01-22] MEDS: Polyethylene Glycol 3350 17 GM PACKET PO (06:20)
[2018-01-22 06:21] VITALS: BP 123/71; PULSE 63
[2018-01-22] MEDS: Metoprolol Tartrate 25 MG Tablet PO ×2 (06:21→21:31)
[2018-01-22] MEDS: Menthol/Lanolin/Calamine/Znox 113 GM Tube 1 APPLIC TOPICAL ×3 (06:23→21:30)
[2018-01-22 06:51] LABS: Bedside Glucose 132 mg/dL (70-110)
[2018-01-22] MEDS: Glucerna Shake 120 ML LIQUID PO ×2 (09:28→11:31)
[2018-01-22] MEDS: Gabapentin 100 MG Capsule PO ×3 (09:28→21:31)
[2018-01-22] MEDS: Multivitamins,Therapeutic Tablet 1 TABLET PO (09:29)
[2018-01-22] MEDS: Venlafaxine XR 37.5 MG Capsule PO (09:29)
[2018-01-22] MEDS: Vitamin E 400 UNITS Capsule PO (09:29)
--- NOTE | 2018-01-22 12:31 | NURSING ---
R' REMAINS IN CONTACT PRECAUTIONS D/T SHINGLES. ALL CARE PROVIDED IN ROOM THIS SHIFT.
[2018-01-22 15:12] VITALS: BP 116/79; PULSE 60; RESP 16; TEMP 36.3; O2SAT 96
--- NOTE | 2018-01-22 15:25 | NURSING ---
R' C/O CP WHILE THERAPY IN ROOM. VS RECENTLY OBTAINED INCLUDE 97.4, 60, 16, 96%RA, 116/79. WHEN ASKED TO RATE PAIN, R' UNABLE TO DO SO. ASKED TO DESCRIBE PAIN AND HE STATED SHARP. DENIES RADIATION. DOES C/O SOB. HR REGULAR APICALLY. CALLED CPS TO OBTAIN EKG.
--- NOTE | 2018-01-22 15:28 | EKGRS_ITS ---
Test Reason : Blood Pressure : / mmHG Vent. Rate : 060 BPM Atrial Rate : 060 BPM P-R Int : 130 ms QRS Dur : 192 ms QT Int : 476 ms P-R-T Axes : 000 257 083 degrees QTc Int : 476 ms Electronic ventricular pacemaker Confirmed by ADRY BARNES, TRIXIE ([id number]), editor book HAROLDO VELAZQUEZ ([id number]) on 01/24/2018 4:27:26 PM Referred By: Yoan Valenzuela Confirmed By:TRIXIE RIDER MD
[2018-01-22 15:52] VITALS: BP 108/85; PULSE 60
--- NOTE | 2018-01-22 15:53 | NURSING ---
Addendum entered by Chasity José Koby 01/22/18 16:14: Dr Nicolas long of below, new order to send to ER. daughter Melinda mercedes Original Note: 1552- R' C/O SHARP CP 7/. VS 108/85 LEFT ARM SEMI-FOWLERS, 60HR, 94%RA. NITRO GIVEN X1. DOES C/O SLIGHT SOB. RESTING IN BED WITH HOB ELEVATED. 1557- R' C/O CP: RATES 5/10. VS OBTAINED 109/73 LEFT ARM, SEMI-FOWLERS, 68HR, 94%RA. CONT' TO DENY RADIATION. NITRO GIVEN X1. 1602- R' C/O CP: RATES 5/10. VS OBTAINED 97/62, 71HR, 90%RA. PLACED ON O2 2L. WILL ADMINISTER ULTRAM FOR PAIN.
[2018-01-22 15:57] VITALS: BP 109/73; PULSE 63
[2018-01-22 21:31] VITALS: BP 133/87; PULSE 59
[2018-01-22] MEDS: Aspirin E.C. 81 MG Tablet PO (21:31)
[2018-01-22] MEDS: Atorvastatin Calcium 40 MG Tablet PO (21:31)
[2018-01-22 21:48] VITALS: BP 133/87; PULSE 59; RESP 18; TEMP 36.6; O2SAT 96
--- NOTE | 2018-01-23 00:12 | NURSING ---
Pt returned from ER at 2039. SL to Rt wrist. NNO. Dr Valenzuela notified, NNO
[2018-01-23] MEDS: Acyclovir 200 MG Capsule 400 MG PO ×2 (05:00→13:05)
[2018-01-23] MEDS: Polyethylene Glycol 3350 17 GM PACKET PO (05:00)
[2018-01-23 05:01] VITALS: BP 123/78; PULSE 65
[2018-01-23] MEDS: traMADol 50 MG Tablet 100 MG PO ×3 (05:01→20:24)
[2018-01-23] MEDS: Senna/Docusate Sodium 1 Tablet PO ×2 (05:01→17:20)
[2018-01-23] MEDS: Ranolazine 500 MG Tablet PO ×2 (05:01→17:19)
[2018-01-23] MEDS: Metoprolol Tartrate 25 MG Tablet PO ×2 (05:01→17:20)
[2018-01-23] MEDS: Clopidogrel Bisulfate 75 MG Tablet PO (05:01)
[2018-01-23] MEDS: Pantoprazole Sodium 40 MG Tablet PO (05:01)
[2018-01-23] MEDS: Hydrocortisone 2.5% Crm 1 APPLIC TOPICAL ×2 (05:07→20:35)
[2018-01-23] MEDS: Menthol/Lanolin/Calamine/Znox 113 GM Tube 1 APPLIC TOPICAL ×3 (05:07→20:35)
[2018-01-23 07:56] LABS: Bedside Glucose 115 mg/dL (70-110)
[2018-01-23] MEDS: Multivitamins,Therapeutic Tablet 1 TABLET PO (08:27)
[2018-01-23] MEDS: Glucerna Shake 120 ML LIQUID PO ×3 (08:27→17:20)
[2018-01-23] MEDS: Venlafaxine XR 37.5 MG Capsule PO (08:27)
[2018-01-23] MEDS: Gabapentin 100 MG Capsule PO ×3 (08:27→17:19)
[2018-01-23] MEDS: Vitamin E 400 UNITS Capsule PO (08:27)
--- NOTE | 2018-01-23 15:14 | CHAPLAIN ---
Type of Pastoral Visit _x__ Initial Visit ___ Follow-up Visit ___ On-call Visit ___ General Patient Visit ___ Spiritual Assessment ___ Family Conference ___ Bereavement ___ Rapid Response ___ Code Blue ___ Other (describe below) Pastoral Care Referral From _x__ Patient ___ Family ___ Nurse ___ Physician ___ Print Line Tailer ___ Physician Practice Market Manager ___ Other (describe below) Sacrament/Intervention ___ Active listening ___ Anointing ___ Rastafarian ___ Bereavement ___ Communion ___ Anabela exploration ___ ___ Life review _x__ Prayer ___ Reconciliation ___ Sacrament of Sick _x__ Supportive presence ___ Wedding ___ Other (describe below) Pastoral Comments personal protection specialist was with patient and helped in the communication between us; pt is slow to speak but shows some humor; pt was welcoming of visit and prayer; pt has a anabaptist connection in the Church anabela
[2018-01-23 15:31] VITALS: BP 109/74; PULSE 65; RESP 18; TEMP 36.2; O2SAT 94
[2018-01-23 17:20] VITALS: BP 109/74; PULSE 65
[2018-01-23] MEDS: Atorvastatin Calcium 40 MG Tablet PO (20:24)
[2018-01-23] MEDS: Aspirin E.C. 81 MG Tablet PO (20:24)
[2018-01-23] MEDS: 0.9% Saline Lock 10 ML Syringe IV (20:27)
--- NOTE | 2018-01-24 01:26 | NURSING ---
All care during shift to pt provided in room d/t contact isolation
[2018-01-24] MEDS: Menthol/Lanolin/Calamine/Znox 113 GM Tube 1 APPLIC TOPICAL ×3 (06:57→20:37)
[2018-01-24 07:00] VITALS: BP 112/82; PULSE 60
[2018-01-24] MEDS: Clopidogrel Bisulfate 75 MG Tablet PO (07:00)
[2018-01-24] MEDS: Metoprolol Tartrate 25 MG Tablet PO ×2 (07:00→17:28)
[2018-01-24] MEDS: Ranolazine 500 MG Tablet PO ×2 (07:01→17:27)
[2018-01-24] MEDS: Pantoprazole Sodium 40 MG Tablet PO (07:01)
[2018-01-24] MEDS: traMADol 50 MG Tablet 100 MG PO (07:01)
[2018-01-24] MEDS: Senna/Docusate Sodium 1 Tablet PO ×2 (07:01→17:27)
[2018-01-24] MEDS: Polyethylene Glycol 3350 17 GM PACKET PO (07:01)
[2018-01-24 07:40] LABS: Bedside Glucose 106 mg/dL (70-110)
[2018-01-24] MEDS: Venlafaxine XR 37.5 MG Capsule PO (09:42)
[2018-01-24] MEDS: Vitamin E 400 UNITS Capsule PO (09:43)
[2018-01-24] MEDS: Multivitamins,Therapeutic Tablet 1 TABLET PO (09:43)
[2018-01-24] MEDS: Gabapentin 100 MG Capsule PO ×3 (09:43→17:28)
[2018-01-24] MEDS: Glucerna Shake 120 ML LIQUID PO ×3 (09:45→17:36)
[2018-01-24 16:00] VITALS: BP 105/70; PULSE 64; RESP 20; TEMP 36.2; O2SAT 95
[2018-01-24 17:28] VITALS: BP 105/70; PULSE 64
--- NOTE | 2018-01-24 18:29 | NURSING ---
NO for remeron 7.5mg PO qHS per [employer] travel counselor request.
[2018-01-24] MEDS: Atorvastatin Calcium 40 MG Tablet PO (20:32)
[2018-01-24] MEDS: Mirtazapine 15 MG Tablet 7.5 MG PO (20:32)
[2018-01-24] MEDS: Aspirin E.C. 81 MG Tablet PO (20:33)
[2018-01-25 06:38] VITALS: BP 126/77; PULSE 62
[2018-01-25] MEDS: Ranolazine 500 MG Tablet PO ×2 (06:38→16:48)
[2018-01-25] MEDS: Pantoprazole Sodium 40 MG Tablet PO (06:38)
[2018-01-25] MEDS: Clopidogrel Bisulfate 75 MG Tablet PO (06:38)
[2018-01-25] MEDS: Metoprolol Tartrate 25 MG Tablet PO ×2 (06:38→16:48)
[2018-01-25] MEDS: Menthol/Lanolin/Calamine/Znox 113 GM Tube 1 APPLIC TOPICAL ×3 (06:38→20:53)
[2018-01-25 06:51] LABS: Bedside Glucose 115 mg/dL (70-110)
[2018-01-25] MEDS: traMADol 50 MG Tablet 100 MG PO (07:16)
[2018-01-25] MEDS: Glucerna Shake 120 ML LIQUID PO ×3 (08:17→16:48)
[2018-01-25] MEDS: Gabapentin 100 MG Capsule PO ×3 (08:18→16:48)
[2018-01-25] MEDS: Venlafaxine XR 37.5 MG Capsule PO (08:18)
[2018-01-25] MEDS: Vitamin E 400 UNITS Capsule PO (08:19)
[2018-01-25] MEDS: Multivitamins,Therapeutic Tablet 1 TABLET PO (08:19)
--- NOTE | 2018-01-25 09:22 | CASEMGMT ---
Addendum entered by Emilee García 01/25/18 12:14: Reviewed and approved below social work student documentation. FILI Salgado, MANUFACTURING QUALITY INSPECTOR Original Note: Plan of Care Meeting held on this day. Patient present and sleeping. Patient's two daughters present. Daughters expressing the need of a hospital bed for patient. No discharge set at this time. Patient continued stay. Sajan Patton social work student
--- NOTE | 2018-01-25 13:46 | CASEMGMT ---
Addendum entered by Emilee García 01/25/18 13:55: Reviewed and approved social work student MDS documentation. Emilee García, FILI, QUILL SKINNER Original Note: Brief interview for mental status (BIMS) attempted to complete on this day. Brief Interview for mood (PHQ-9) completed on this day. PHQ-9 score /. Patient unable to answer BIMS test. BIMS assessment to be entered under observation. Sajan Patton social work student
--- NOTE | 2018-01-25 14:07 | MDS.RN ---
Staff assessment for pain completed today.
[2018-01-25 15:11] VITALS: BP 101/68; PULSE 60; RESP 20; TEMP 36.8; O2SAT 97
[2018-01-25 16:48] VITALS: BP 101/68; PULSE 60
[2018-01-25] MEDS: Atorvastatin Calcium 40 MG Tablet PO (20:51)
[2018-01-25] MEDS: Mirtazapine 15 MG Tablet 7.5 MG PO (20:51)
[2018-01-25] MEDS: Aspirin E.C. 81 MG Tablet PO (20:51)
[2018-01-25 20:59] VITALS: PULSE 66; O2SAT 98
--- NOTE | 2018-01-25 21:02 | NURSING ---
All care provided in room d/t pt remains in precautions. Personal aide remains at bedside.
[2018-01-26 05:51] LABS: Absolute Lymphocyte Count 2.27 X10^3/ul (0.83-4.51); Basophil# 0.02 X10^3/uL; Basophil% 0.3 % (0-1); Eosinophils% 2.7 % (0-5); Hematocrit 41.1 % (40-54); Hemoglobin 13.6 g/dl (13.0-16.5); Lymphocyte # 2.27 X10^3/ul (4.0); Mean Corp Hgb Conc 33.1 g/gl (32-36); Mean Corpuscular Hgb 30.3 pg (27.0-32.0); Mean Corpuscular Volume 91.5 fL (80-94); Mean Platelet Vol. 9.2 fl (6.2-12.0); Monocyte# 0.79 X10^3/uL; Monocyte% 10.8 % (0-10); Neutrophil # 4.03 X10^3/uL (2.7-7.7); Neutrophil % 55.1 % (47-70); Platelet Count 171 K/mm3 (150-450); RBC Distribution Width CV 13.2 % (11.6-14.6); RBC Distribution Width SD 44.1 fl (35.1-43.9); Red Blood Count 4.49 M/mm3 (4.6-6.2); White Blood Count 7.3 K/mm3 (4.4-11.0)
[2018-01-26 05:58] LABS: POSITIVE COUNT NO; POSITIVE DIFFERENTIAL NO; POSITIVE MORPHOLOGY NO
[2018-01-26 06:07] VITALS: BP 127/72; PULSE 77
[2018-01-26] MEDS: Pantoprazole Sodium 40 MG Tablet PO (06:07)
[2018-01-26] MEDS: Metoprolol Tartrate 25 MG Tablet PO ×2 (06:07→16:57)
[2018-01-26] MEDS: Clopidogrel Bisulfate 75 MG Tablet PO (06:07)
[2018-01-26] MEDS: Ranolazine 500 MG Tablet PO ×2 (06:07→16:58)
[2018-01-26 06:11] LABS: Anion Gap 9 (5-15); BUN 19 mg/dL (7-18); BUN/Creat Ratio 19.6 RATIO (10-20); Calcium,Total 8.8 mg/dL (8.5-10.1); Chloride 105 mmol/L (98-107); Creatinine, Serum 0.97 mg/dL (0.70-1.30); EST Glomerular Filtration Rate 80 mL/min (>60); Est Glom Filt Rate - Afr Amer 96 mL/min (>60); Glucose 115 mg/dL (74-106); Potassium 4.2 mmol/L (3.5-5.1); Sodium Level 140 mmol/L (136-145)
[2018-01-26] MEDS: Menthol/Lanolin/Calamine/Znox 113 GM Tube 1 APPLIC TOPICAL ×3 (06:17→20:48)
[2018-01-26 06:55] LABS: Bedside Glucose 152 mg/dL (70-110)
--- NOTE | 2018-01-26 08:32 | NURSING ---
unable to keep pt awake long enough to take meds, was able to drink some water. Daughter at bedside. Sitting up in recliner chair, call light in reach.
[2018-01-26] MEDS: Acetaminophen 500 MG Tablet 1000 MG PO ×2 (09:39→16:56)
[2018-01-26] MEDS: Gabapentin 100 MG Capsule PO ×2 (09:41→16:57)
--- NOTE | 2018-01-26 09:51 | NURSING ---
pt really sleepy this AM, took some of his meds but refused to take anymore. Would not keep eyes open. Did grimmace, rubbing Lt side of neck. Tylenol given per daughter request. Pt took with much encouragement to stay awake. sitting in recliner chair, daughter at bedside.
--- NOTE | 2018-01-26 11:21 | NURSING ---
R' REMAINS IN CONTACT ISOLATION. ALL CARE PROVIDED IN ROOM. DAUGHTER AT SIDE.
[2018-01-26] MEDS: Tuberculin,Purif.prot.deriv. 50 TU/ML Vial 5 ML ID (11:31)
[2018-01-26 15:29] VITALS: BP 110/75; PULSE 69; RESP 16; TEMP 36.2; O2SAT 96
[2018-01-26 16:57] VITALS: PULSE 69
[2018-01-26] MEDS: Atorvastatin Calcium 40 MG Tablet PO (20:41)
[2018-01-26] MEDS: Aspirin E.C. 81 MG Tablet PO ×2 (20:41)
[2018-01-26] MEDS: Mirtazapine 15 MG Tablet 7.5 MG PO (20:42)
[2018-01-27 07:06] LABS: Bedside Glucose 136 mg/dL (70-110)
[2018-01-27] MEDS: Clopidogrel Bisulfate 75 MG Tablet PO (09:26)
[2018-01-27 09:28] VITALS: PULSE 73
[2018-01-27] MEDS: Aspirin E.C. 81 MG Tablet PO (09:28)
[2018-01-27] MEDS: Vitamin E 400 UNITS Capsule PO (09:28)
[2018-01-27] MEDS: Gabapentin 100 MG Capsule PO ×2 (09:28→16:06)
[2018-01-27] MEDS: Ranolazine 500 MG Tablet PO ×2 (09:28→16:05)
[2018-01-27] MEDS: Multivitamins,Therapeutic Tablet 1 TABLET PO (09:28)
[2018-01-27] MEDS: Metoprolol Tartrate 25 MG Tablet PO ×2 (09:28→16:05)
[2018-01-27] MEDS: Pantoprazole Sodium 40 MG Tablet PO (09:29)
[2018-01-27] MEDS: Menthol/Lanolin/Calamine/Znox 113 GM Tube 1 APPLIC TOPICAL ×3 (09:34→21:43)
--- NOTE | 2018-01-27 10:42 | NURSING ---
R' REMAINS IN CONTACT ISOLATION. ALL CARE PROVIDED IN ROOM.
[2018-01-27 15:52] VITALS: BP 102/63; PULSE 65; RESP 22; TEMP 35.8; O2SAT 92
[2018-01-27 16:05] VITALS: PULSE 65
[2018-01-27] MEDS: traMADol 50 MG Tablet 100 MG PO (16:06)
[2018-01-27] MEDS: Atorvastatin Calcium 40 MG Tablet PO (21:42)
[2018-01-27] MEDS: Mirtazapine 15 MG Tablet 7.5 MG PO (21:42)
--- NOTE | 2018-01-28 00:04 | EKG12_ITS ---
Test Reason : CP Blood Pressure : / mmHG Vent. Rate : 071 BPM Atrial Rate : 071 BPM P-R Int : 168 ms QRS Dur : 188 ms QT Int : 470 ms P-R-T Axes : -13 250 048 degrees QTc Int : 510 ms Electronic ventricular pacemaker Confirmed by ADRY BARNES, TRIXIE ([id number]), health editor MARSHA RICHARDS ([id number] on 02/01/2018 3:17:39 PM Referred By: Yoan Valenzuela Confirmed By:TRIXIE RIDER MD
[2018-01-28 00:05] VITALS: BP 130/58; PULSE 68
--- NOTE | 2018-01-28 00:05 | NURSING ---
Addendum entered by Jessica Garcia 01/28/18 00:59: Pt continuing to have chest pain, but refusing another dose of nitro. BP 105/63, HR 67. Dr. Valenzuela aware, and new order for MOM X1. Spoke with pts daughterMelinda on phone and requesting to have mylanta instead of MOM. New order for mylanta 30mg X1. Will continue to monitor. Original Note: Pt c/o left sided chest pain, rates pain as a 5/10. BP 130/58, HR 68, 98% on room air. One dose of nitro given, EKG ordered.
[2018-01-28] MEDS: Mag Hydrox/Al Hydrox/Simeth 30 ML UDC PO (00:46)
--- NOTE | 2018-01-28 01:03 | NURSING ---
R' REMAINS IN CONTACT ISOLATION. ALL CARE PROVIDED IN ROOM.
[2018-01-28 05:57] VITALS: BP 137/73; PULSE 63
[2018-01-28] MEDS: Metoprolol Tartrate 25 MG Tablet PO ×2 (05:57→18:12)
[2018-01-28] MEDS: Menthol/Lanolin/Calamine/Znox 113 GM Tube 1 APPLIC TOPICAL ×3 (05:57→21:07)
[2018-01-28] MEDS: Pantoprazole Sodium 40 MG Tablet PO (05:57)
[2018-01-28] MEDS: Ranolazine 500 MG Tablet PO ×2 (05:57→18:12)
[2018-01-28 07:56] LABS: Bedside Glucose 158 mg/dL (70-110)
[2018-01-28] MEDS: Multivitamins,Therapeutic Tablet 1 TABLET PO (08:42)
[2018-01-28] MEDS: Vitamin E 400 UNITS Capsule PO (08:42)
[2018-01-28] MEDS: Gabapentin 100 MG Capsule PO ×2 (08:42→18:13)
[2018-01-28] MEDS: traMADol 50 MG Tablet 100 MG PO ×2 (13:19→20:37)
[2018-01-28 15:51] VITALS: BP 117/73; PULSE 62; RESP 16; TEMP 35.9; O2SAT 96
[2018-01-28 18:12] VITALS: BP 117/73; PULSE 62
[2018-01-28] MEDS: Mirtazapine 15 MG Tablet 7.5 MG PO (20:37)
[2018-01-28] MEDS: Atorvastatin Calcium 40 MG Tablet PO (20:37)
--- NOTE | 2018-01-29 00:07 | NURSING ---
R' REMAINS IN CONTACT ISOLATION. ALL CARE PROVIDED IN ROOM.
[2018-01-29 05:50] VITALS: BP 101/63; PULSE 60
[2018-01-29] MEDS: traMADol 50 MG Tablet 100 MG PO ×2 (05:50→16:52)
[2018-01-29] MEDS: Menthol/Lanolin/Calamine/Znox 113 GM Tube 1 APPLIC TOPICAL ×3 (05:50→22:31)
[2018-01-29] MEDS: Pantoprazole Sodium 40 MG Tablet PO (05:50)
[2018-01-29] MEDS: Metoprolol Tartrate 25 MG Tablet PO ×2 (05:50→16:58)
[2018-01-29 06:46] LABS: Bedside Glucose 167 mg/dL (70-110)
[2018-01-29] MEDS: Ranolazine 500 MG Tablet PO ×2 (09:28→16:59)
[2018-01-29] MEDS: Vitamin E 400 UNITS Capsule PO (09:28)
[2018-01-29] MEDS: Gabapentin 100 MG Capsule PO (09:28)
[2018-01-29] MEDS: Multivitamins,Therapeutic Tablet 1 TABLET PO (09:28)
[2018-01-29] MEDS: Polyethylene Glycol 3350 17 GM PACKET PO (09:29)
[2018-01-29] MEDS: Acetaminophen 500 MG Tablet 1000 MG PO ×2 (10:19→18:45)
[2018-01-29 16:00] VITALS: BP 100/64; PULSE 64; RESP 14; TEMP 36.8; O2SAT 95
[2018-01-29 16:58] VITALS: PULSE 64
[2018-01-29] MEDS: Atorvastatin Calcium 40 MG Tablet PO (22:24)
[2018-01-29] MEDS: Aspirin E.C. 81 MG Tablet PO (22:24)
[2018-01-29] MEDS: Mirtazapine 15 MG Tablet PO (22:24)
--- NOTE | 2018-01-30 00:45 | NURSING ---
All care provided to pt in room d/t contact isolation precautions for shingles
[2018-01-30] MEDS: Ranolazine 500 MG Tablet PO ×2 (05:27→17:46)
[2018-01-30] MEDS: Pantoprazole Sodium 40 MG Tablet PO (05:27)
[2018-01-30 05:28] VITALS: BP 119/80; PULSE 60
[2018-01-30] MEDS: Metoprolol Tartrate 25 MG Tablet PO ×2 (05:28→17:46)
[2018-01-30] MEDS: traMADol 50 MG Tablet 100 MG PO ×2 (05:28→17:51)
[2018-01-30] MEDS: Menthol/Lanolin/Calamine/Znox 113 GM Tube 1 APPLIC TOPICAL ×3 (05:41→20:21)
[2018-01-30 06:46] LABS: Bedside Glucose 171 mg/dL (70-110)
[2018-01-30] MEDS: Vitamin E 400 UNITS Capsule PO (09:07)
[2018-01-30] MEDS: Acetaminophen 500 MG Tablet 1000 MG PO ×2 (09:07→20:22)
[2018-01-30] MEDS: Multivitamins,Therapeutic Tablet 1 TABLET PO (09:07)
[2018-01-30] MEDS: Gabapentin 100 MG Capsule PO (09:07)
--- NOTE | 2018-01-30 11:42 | NURSING ---
All care provided to pt in room d/t contact isolation precautions for shingles t/o this shift
--- NOTE | 2018-01-30 14:40 | MDS.RN ---
Information for the mds was obtained from review of the clinical record, interview of resident, staff, and direct observation of resident's care.
[2018-01-30 15:12] VITALS: BP 99/69; PULSE 60; RESP 16; TEMP 36.9; O2SAT 99
[2018-01-30 17:43] VITALS: BP 120/78
[2018-01-30 17:46] VITALS: PULSE 60
[2018-01-30] MEDS: Aspirin E.C. 81 MG Tablet PO (20:20)
[2018-01-30] MEDS: Mirtazapine 15 MG Tablet PO (20:21)
[2018-01-30] MEDS: Atorvastatin Calcium 40 MG Tablet PO (20:21)
[2018-01-31] MEDS: Menthol/Lanolin/Calamine/Znox 113 GM Tube 1 APPLIC TOPICAL ×2 (05:31→20:24)
[2018-01-31] MEDS: traMADol 50 MG Tablet 100 MG PO (05:37)
[2018-01-31] MEDS: Pantoprazole Sodium 40 MG Tablet PO (05:37)
[2018-01-31] MEDS: Ranolazine 500 MG Tablet PO ×2 (05:37→17:33)
[2018-01-31 05:38] VITALS: BP 118/78; PULSE 61
[2018-01-31] MEDS: Metoprolol Tartrate 25 MG Tablet PO ×2 (05:38→17:27)
[2018-01-31 06:55] LABS: Bedside Glucose 145 mg/dL (70-110)
[2018-01-31] MEDS: Gabapentin 100 MG Capsule PO (09:31)
[2018-01-31] MEDS: Vitamin E 400 UNITS Capsule PO (09:31)
[2018-01-31] MEDS: Polyethylene Glycol 3350 17 GM PACKET PO (09:31)
[2018-01-31] MEDS: Multivitamins,Therapeutic Tablet 1 TABLET PO (09:32)
[2018-01-31 15:34] VITALS: BP 147/66; PULSE 62; RESP 18; TEMP 35.8; O2SAT 94
[2018-01-31 17:27] VITALS: PULSE 60
[2018-01-31] MEDS: Mirtazapine 15 MG Tablet PO (20:16)
[2018-01-31] MEDS: Atorvastatin Calcium 40 MG Tablet PO (20:16)
[2018-01-31] MEDS: Aspirin E.C. 81 MG Tablet PO (20:16)
--- NOTE | 2018-01-31 23:43 | NURSING ---
All care provided to patient in room. Patient on contact precautions due to shingles.
[2018-02-01 06:27] VITALS: BP 131/79; PULSE 64
[2018-02-01] MEDS: Ranolazine 500 MG Tablet PO ×2 (06:27→18:11)
[2018-02-01] MEDS: Pantoprazole Sodium 40 MG Tablet PO (06:27)
[2018-02-01] MEDS: Metoprolol Tartrate 25 MG Tablet PO ×2 (06:27→18:11)
[2018-02-01] MEDS: Menthol/Lanolin/Calamine/Znox 113 GM Tube 1 APPLIC TOPICAL ×3 (06:30→20:20)
[2018-02-01 06:46] LABS: Bedside Glucose 118 mg/dL (70-110)
[2018-02-01] MEDS: Gabapentin 100 MG Capsule PO (07:58)
[2018-02-01] MEDS: Multivitamins,Therapeutic Tablet 1 TABLET PO (07:58)
[2018-02-01] MEDS: Vitamin E 400 UNITS Capsule PO (07:58)
--- NOTE | 2018-02-01 13:56 | CASEMGMT ---
Social Work DARREN spoke with pt daughters Quincy who state they plan to take pt home on Monday02/05/18. Pt does have [address] in place and has all needed DME except a hospital bed which dgts feel would be very helpful. Therapy is recommending home health PT/OT and pts dgts are agreeable and have used [facility] in the past. SW met with pt in room to discuss d/c. Pt opens eyes when SW calls name but will not converse with SW at this time. Referral made to [facility] and they can accept. DARREN will fax orders when obtained. Phone call to [place]abela [place] [facility] [place] states hospital bed will be covered by insurance due to pt diagnoses. Colo aware family would like bed delivered on Monday. Will fax orders when obtained. Plan: Home with 24 hour caregivers on 02/05/18 and home health PT/OT FILI [place]
--- NOTE | 2018-02-01 14:17 | MDS.RN ---
staff observation for pain assessment completed today.
[2018-02-01 16:00] VITALS: BP 115/79; PULSE 66; RESP 18; TEMP 36; O2SAT 98
[2018-02-01] MEDS: traMADol 50 MG Tablet 100 MG PO (16:22)
[2018-02-01 18:11] VITALS: BP 115/79; PULSE 66
[2018-02-01] MEDS: Atorvastatin Calcium 40 MG Tablet PO (20:19)
[2018-02-01] MEDS: Aspirin E.C. 81 MG Tablet PO (20:19)
[2018-02-01] MEDS: Mirtazapine 15 MG Tablet PO (20:19)
--- NOTE | 2018-02-01 21:20 | DCINST_ITS ---
- Discharge Diagnoses Current Active Problems: Current Active and Chronic Problems (Last Updated 02/01/18 @ 15:22 by Sandra Moody) Debility (Acute) Herpes zoster (Acute) Diabetes mellitus (Chronic) Coronary artery disease (Chronic) Stroke (Chronic) Alzheimer's disease (Chronic) Depression (Chronic) You will use the following diet at home:: No restrictions, Regular Your food should be the consistency of: Regular Your liquids should be the consistency of: Regular/Thin Discharge Activity: Return to Normal Activity, May Shower, Use Walker Weight Bearing Status: Weight bearing as tolerated Call your doctor if you observe: Fever of 101 or Higher, Inability to urinate, Inability to have a bowel movement, Shortness of breath, Chest pain, Uncontrolled pain Allergies/Adverse Reactions: Allergies citalopram [From Celexa] Adverse Reaction (Intermediate, Verified 02/01/18 15:24) Unknown isosorbide [From Imdur] Adverse Reaction (Verified 02/01/18 15:24) Low blood pressure lisinopril Adverse Reaction (Verified 02/01/18 15:24) Low blood pressure Medications to take at Discharge aspirin 81 mg tablet,delayed release 81 mg PO QHS tab 05/16/17 furosemide 20 mg tablet 20 mg PO QDAY PRN 05/16/17 nitroglycerin 0.4 mg sublingual tablet 0.4 mg SUBLINGUAL Q5M PRN 05/16/17 pantoprazole 40 mg tablet,delayed release 40 mg PO QDAY 05/16/17 ranolazine ER 500 mg tablet,extended release,12 hr 500 mg PO BID tab 05/16/17 metformin 500 mg tablet 500 mg PO BIDCM tab 09/12/17 multivitamin tablet 1 tab PO QDAY 09/12/17 vitamin E (dl, acetate) 400 unit capsule 400 unit PO QDAY 09/12/17 Glucerna Shake 120 ml PO TIDCM 01/18/18 Ketoconazole 10 ml TP QODAY 01/18/18 Menthol/Lanolin/Calamine/Znox [Calmoseptine Ointment] 1 applic TOPICAL TID 1 03/20/17 Metoprolol Tartrate 25 mg PO BID 01/18/18 Polyethylene Glycol 3350 [Miralax] 17 gm PO DAILY 01/18/18 Acetaminophen [Tylenol Extra Strength] 1,000 mg PO Q6H PRN PRN 01/22/18 Atorvastatin Calcium [Lipitor] 40 mg PO QHS 01/22/18 Atorvastatin Calcium [Lipitor] 40 mg PO QHS tablet 02/01/18 Ensure Enlive 120 ml PO 4X/DAY liquid 02/01/18 Gabapentin [Neurontin] 100 mg PO DAILYCM capsule 02/01/18 Hydrocortisone 2.5% Crm [Hytone] 1 applic TOPICAL TID PRN PRN tube 02/01/18 Ketoconazole 10 ml TP Q48H PRN shampoo 02/01/18 Mirtazapine [Remeron] 15 mg PO QHS #30 tablet 02/01/18 Polyethylene Glycol 3350 [Miralax] 17 gm PO MoWeFr@1000 packet 02/01/18 mirtazapine 15 mg tablet 15 mg PO DAILY 02/01/18 traMADol [Ultram] 100 mg PO Q6H PRN PRN #30 tab 02/01/18 traMADol [Ultram] 100 mg PO Q6H PRN PRN #30 tab 02/01/18 The following prescriptions were given: traMADol [Ultram] 100 mg PO Q6H PRN PRN #30 tab PRN Reason: Severe Pain (6-10/10) traMADol [Ultram] 100 mg PO Q6H PRN PRN #30 tab PRN Reason: Mod-Severe Pain (4-10/10) Mirtazapine [Remeron] 15 mg PO QHS #30 tablet Primary Care Physician: Gaston Yip [Primary Care Provider] - Please follow up with your Primary Care Physician in: 1 week. Test Results: Test results from this visit will be discussed in further detail at your follow- up appointment, if applicable. Please Follow Up With: Dr. Ramakrishna Bennett When: 03/01/18 Proposed Discharge Date: 02/05/18
--- NOTE | 2018-02-01 21:20 | PCM.DC.SUM ---
Discharge Date and Diagnosis - Problem List Patient Problems: Active and Suspected Problems (Last Updated 02/01/18 @ 15:22 by Sandra Moody) Debility (Acute) Herpes zoster (Acute) Date of Admission: 01/18/18 Date of Discharge: 02/05/18 - Primary Discharge Diagnosis Active and Suspected Problems (Last Updated 02/01/18 @ 15:22 by Sandra Moody) Debility (Acute) Herpes zoster (Acute) - Secondary Discharge Diagnosis Chronic Problems (Last Updated 02/01/18 @ 15:22 by Sandra Moody) Diabetes mellitus (Chronic) Coronary artery disease (Chronic) Stroke (Chronic) Alzheimer's disease (Chronic) Depression (Chronic) Atrial fibrillation (Chronic) Hypertension (Chronic) Atherosclerotic heart disease of [place] coronary artery without angina pectoris (Chronic) S/P RCA, LCX, and OM PTCA/SARKIS in April and May of 2014; Stroke determined by clinical assessment (Chronic) Hyperlipidemia (Chronic) Presence of other cardiac implants and grafts (Chronic) Staged PCI done 05/15/14 to RCA & then readmitted 05/26/14 for acute coronary syndrome-PCI completed 05/28/14 Non-ST elevation (NSTEMI) myocardial infarction (Chronic) Diastolic dysfunction (Chronic) Other intermediate (current) drug therapy (Chronic) Second degree atrioventricular block (Chronic) Presence of cardiac pacemaker (Chronic) Pacemaker implant 05/15/14 H/O: stroke (Chronic) H/O myocardial infarction, greater than 8 weeks (Chronic) Diabetes type 2, uncontrolled (Chronic) Dementia (Chronic) Hospital Course and Treatment Imaging Results: 01/18/18 20:12 Diet: Regular Diet Labs (Last 48 Hours) 01/31/18 02/01/18 06:38 06:39 POC Glucose 145 H 118 H Operations: None Procedures: None Summary of Care Provided: The patient is a 77 year old Male with below past medical history admitted from home with debility secondary herpes zoster, to TCU for rehabilitation, strengthening, prior to discharge home alone. Discharge home with 24 hour caregivers, Home Health Services PT/OT. Patient Problems: Active and Suspected Problems (Last Updated 02/01/18 @ 15:22 by Sandra Moody) Debility (Acute) Herpes zoster (Acute) - Physical Exam Vital Signs Temp Pulse Resp BP Pulse Ox 96.8 F L 66 18 115/79 98 02/01/18 16:00 02/01/18 18:11 02/01/18 16:00 02/01/18 18:11 02/01/18 16:00 Oxygen Delivery Method Room Air Weight: 93.894 kg Body Mass Index (BMI) 27.9 Intake and Output for Last 24 Hours 01/30/18 01/31/18 02/01/18 23:59 23:59 23:59 Intake Total 840 / 840 720 / 720 360 / 360 Balance 840 / 840 720 / 720 360 / 360 POC Glucose 02/01/18 06:39 POC Glucose 118 H Discharge Diet: No Restrictions Discharge Activity: Return to Normal Activity, May Shower, Use Walker Weight Bearing Status: Weight bearing as tolerated Call your doctor if you observe: Fever of 101 or Higher, Inability to urinate, Inability to have a bowel movement, Shortness of breath, Chest pain, Uncontrolled pain Home Medications: Medications to take at Discharge aspirin 81 mg tablet,delayed release 81 mg PO QHS tab 05/16/17 furosemide 20 mg tablet 20 mg PO QDAY PRN 05/16/17 nitroglycerin 0.4 mg sublingual tablet 0.4 mg SUBLINGUAL Q5M PRN 05/16/17 pantoprazole 40 mg tablet,delayed release 40 mg PO QDAY 05/16/17 ranolazine ER 500 mg tablet,extended release,12 hr 500 mg PO BID tab 05/16/17 metformin 500 mg tablet 500 mg PO BIDCM tab 09/12/17 multivitamin tablet 1 tab PO QDAY 09/12/17 vitamin E (dl, acetate) 400 unit capsule 400 unit PO QDAY 09/12/17 Glucerna Shake 120 ml PO TIDCM 01/18/18 Ketoconazole 10 ml TP QODAY 01/18/18 Menthol/Lanolin/Calamine/Znox [Calmoseptine Ointment] 1 applic TOPICAL TID 01/18/18 Metoprolol Tartrate 25 mg PO BID 01/18/18 Polyethylene Glycol 3350 [Miralax] 17 gm PO DAILY 01/18/18 Acetaminophen [Tylenol Extra Strength] 1,000 mg PO Q6H PRN PRN 01/22/18 Atorvastatin Calcium [Lipitor] 40 mg PO QHS 01/22/18 Atorvastatin Calcium [Lipitor] 40 mg PO QHS tablet 02/01/18 Ensure Enlive 120 ml PO 4X/DAY liquid 02/01/18 Gabapentin [Neurontin] 100 mg PO DAILYCM capsule 02/01/18 Hydrocortisone 2.5% Crm [Hytone] 1 applic TOPICAL TID PRN PRN tube 02/01/18 Ketoconazole 10 ml TP Q48H PRN shampoo 02/01/18 Mirtazapine [Remeron] 15 mg PO QHS #30 tablet 02/01/18 Polyethylene Glycol 3350 [Miralax] 17 gm PO MoWeFr@1000 packet 02/01/18 mirtazapine 15 mg tablet 15 mg PO DAILY 02/01/18 traMADol [Ultram] 100 mg PO Q6H PRN PRN #30 tab 02/01/18 traMADol [Ultram] 100 mg PO Q6H PRN PRN #30 tab 02/01/18 Following Prescrptions Were Given to Patient: traMADol [Ultram] 100 mg PO Q6H PRN PRN #30 tab PRN Reason: Severe Pain (6-10/10) traMADol [Ultram] 100 mg PO Q6H PRN PRN #30 tab PRN Reason: Mod-Severe Pain (4-10/10) Mirtazapine [Remeron] 15 mg PO QHS #30 tablet Primary Care Physician: Gaston Yip [Primary Care Provider] - Please follow up with your Primary Care Physician in: 1 week. Please Follow Up With: Dr. Ramakrishna Bennett When: 03/01/18 Disposition: Home with Home Health Minutes spent on discharge:: 35 Patient Condition:: Stable Medical Necessity - Tobacco Use Smoking Status: Never smoker Tobacco Use: Non-smoker Meaningful Use Info Meaningful Use Diagnoses (Choose all that apply): None applicable
--- NOTE | 2018-02-01 21:22 | PCM.PN.HH ---
Home Health Note - Plan Overview of reason of hospitalization: The patient is a 77 year old Male with below past medical history admitted from home with debility secondary herpes zoster, to TCU for rehabilitation, strengthening, prior to discharge home alone. Discharge home with 24 hour caregivers, Home Health Services PT/OT. Problems: Patient was seen for (Last Updated 02/01/18 @ 15:22 by Sandra Moody) Debility (Acute) Herpes zoster (Acute) Diabetes mellitus (Chronic) Coronary artery disease (Chronic) Stroke (Chronic) Alzheimer's disease (Chronic) Depression (Chronic) Complete List of Medical Problems (Last Updated 02/01/18 @ 15:22 by Sandra Moody) Debility (Acute) Herpes zoster (Acute) Diabetes mellitus (Chronic) Coronary artery disease (Chronic) Stroke (Chronic) Alzheimer's disease (Chronic) Depression (Chronic) Atrial fibrillation (Chronic) Hypertension (Chronic) Atherosclerotic heart disease of [place] coronary artery without angina pectoris (Chronic) Stroke determined by clinical assessment (Chronic) Hyperlipidemia (Chronic) Presence of other cardiac implants and grafts (Chronic) Non-ST elevation (NSTEMI) myocardial infarction (Chronic) Diastolic dysfunction (Chronic) Other fpc (current) drug therapy (Chronic) Ischemic cardiomyopathy (Acute) Second degree atrioventricular block (Chronic) Presence of cardiac pacemaker (Chronic) H/O: stroke (Chronic) H/O myocardial infarction, greater than 8 weeks (Chronic) Diabetes type 2, uncontrolled (Chronic) Dementia (Chronic) Pressure ulcer of right buttock, stage 1 (Acute) Pressure ulcer of left buttock, stage 1 (Acute) - Requirements and Reasons Disciplines Needed/Ordered: Physical Therapy Reason for Disciplines: Disease Specific Monitoring/education, Medication Management/Knowledge Deficit, Gait Training, Stair Training, Fall Prevention, Home Safety/Equipment Instruction, Balance and/or Posture Training, Transfer Training Related To: Change in Medical Treatment Plan, Limited/Poor Endurance, Shortness of Breath with Activity, Physical Impairments, Unsteady Gait/Balance, Intractable Pain, Fall Risk Patient is unable to leave the home: Without Aid of Supportive Devices (crutches, cane, wheelchair, walker), Without the assistance of another person - Additional Disciplines Additional Disciplines Needed/Ordered: Occupational Therapy
[2018-02-02 05:49] VITALS: BP 110/75; PULSE 62
[2018-02-02] MEDS: Metoprolol Tartrate 25 MG Tablet PO ×2 (05:49→18:48)
[2018-02-02] MEDS: Pantoprazole Sodium 40 MG Tablet PO (05:49)
[2018-02-02] MEDS: Ranolazine 500 MG Tablet PO (05:49)
[2018-02-02] MEDS: Menthol/Lanolin/Calamine/Znox 113 GM Tube 1 APPLIC TOPICAL ×3 (05:53→21:21)
[2018-02-02 05:57] LABS: Absolute Neutrophil Count 4.1 X10^3/uL (2.0-7.7); Basophil# 0.03 X10^3/uL; Basophil% 0.4 % (0-1); Eosinophil# 0.32 X10^3/uL; Eosinophils% 4.3 % (0-5); Hematocrit 41.3 % (40-54); Hemoglobin 13.6 g/dl (13.0-16.5); Lymphocyte % 29.4 % (19-41); Mean Corp Hgb Conc 32.9 g/gl (32-36); Mean Corpuscular Hgb 30.8 pg (27.0-32.0); Mean Corpuscular Volume 93.4 fL (80-94); Mean Platelet Vol. 8.9 fl (6.2-12.0); Monocyte# 0.86 X10^3/uL; Monocyte% 11.5 % (0-10); Neutrophil # 4.05 X10^3/uL (2.7-7.7); Neutrophil % 54.1 % (47-70); Platelet Count 263 K/mm3 (150-450); RBC Distribution Width CV 12.9 % (11.6-14.6); RBC Distribution Width SD 42.8 fl (35.1-43.9); Red Blood Count 4.42 M/mm3 (4.6-6.2); White Blood Count 7.5 K/mm3 (4.4-11.0)
[2018-02-02 06:06] LABS: ALB/GLOB Ratio 0.9 RATIO (0.9-2.4); Albumin, Serum 3.2 g/dL (3.2-5.0); Anion Gap 7 (5-15); BUN 24 mg/dL (7-18); BUN/Creat Ratio 23.3 RATIO (10-20); Calcium,Total 8.9 mg/dL (8.5-10.1); Chloride 105 mmol/L (98-107); Creatinine, Serum 1.03 mg/dL (0.70-1.30); EST Glomerular Filtration Rate 74 mL/min (>60); Est Glom Filt Rate - Afr Amer 89 mL/min (>60); Estimated Creatinine Clearance 67.61 ml/min; Globulin 3.4 g/dL (2.2-4.2); Glucose 114 mg/dL (74-106); Potassium 4.5 mmol/L (3.5-5.1); Prealbumin 27.2 mg/dL (20.0-40.0); Protein, Total 6.6 g/dL (6.4-8.2); Sodium Level 141 mmol/L (136-145)
[2018-02-02 06:22] LABS: POSITIVE COUNT NO; POSITIVE DIFFERENTIAL NO; POSITIVE MORPHOLOGY NO
[2018-02-02 07:01] LABS: Bedside Glucose 134 mg/dL (70-110)
[2018-02-02] MEDS: Gabapentin 100 MG Capsule PO (09:17)
[2018-02-02] MEDS: Vitamin E 400 UNITS Capsule PO (09:17)
[2018-02-02] MEDS: Polyethylene Glycol 3350 17 GM PACKET PO (09:17)
[2018-02-02] MEDS: Multivitamins,Therapeutic Tablet 1 TABLET PO (09:17)
[2018-02-02] MEDS: traMADol 50 MG Tablet 100 MG PO ×2 (12:07→23:15)
[2018-02-02 15:42] VITALS: BP 102/74; PULSE 56; RESP 18; TEMP 37.2; O2SAT 98
--- NOTE | 2018-02-02 16:49 | NURSING ---
Reuben Smith NP from [facility] called, NO to increase Ranexa to 1,000mg PO BID. Patient and family aware.
[2018-02-02 18:48] VITALS: BP 102/74; PULSE 56
[2018-02-02] MEDS: Ranolazine 500 MG Tablet 1000 MG PO (18:49)
[2018-02-02] MEDS: Atorvastatin Calcium 40 MG Tablet PO (21:21)
[2018-02-02] MEDS: Mirtazapine 15 MG Tablet PO (21:21)
[2018-02-02] MEDS: Aspirin E.C. 81 MG Tablet PO (21:21)
[2018-02-03 06:51] LABS: Bedside Glucose 140 mg/dL (70-110)
[2018-02-03 06:57] VITALS: BP 134/86; PULSE 60
[2018-02-03] MEDS: Ranolazine 500 MG Tablet 1000 MG PO ×2 (06:57→17:28)
[2018-02-03] MEDS: Pantoprazole Sodium 40 MG Tablet PO (06:57)
[2018-02-03] MEDS: Metoprolol Tartrate 25 MG Tablet PO ×2 (06:57→17:28)
[2018-02-03] MEDS: Menthol/Lanolin/Calamine/Znox 113 GM Tube 1 APPLIC TOPICAL ×3 (07:02→20:38)
[2018-02-03 10:00] VITALS: PULSE 60; O2SAT 95
--- NOTE | 2018-02-03 10:33 | NURSING ---
Resident remains sleeping. family at bedside and have not fed him breakfast yet. Instructed to let this nurse know when resident is awake and wanting to eat breakfast.
[2018-02-03] MEDS: Multivitamins,Therapeutic Tablet 1 TABLET PO (11:41)
[2018-02-03] MEDS: Vitamin E 400 UNITS Capsule PO (11:41)
[2018-02-03] MEDS: Gabapentin 100 MG Capsule PO (11:41)
[2018-02-03] MEDS: Acetaminophen 500 MG Tablet 1000 MG PO ×2 (11:45→23:02)
[2018-02-03 15:36] VITALS: BP 128/70; PULSE 60; RESP 16; TEMP 36.1; O2SAT 97
[2018-02-03 17:28] VITALS: BP 128/70; PULSE 60
[2018-02-03] MEDS: Mirtazapine 15 MG Tablet PO (20:31)
[2018-02-03] MEDS: Atorvastatin Calcium 40 MG Tablet PO (20:31)
[2018-02-03] MEDS: Aspirin E.C. 81 MG Tablet PO (20:31)
[2018-02-03] MEDS: traMADol 50 MG Tablet 100 MG PO (20:31)
[2018-02-04] MEDS: Pantoprazole Sodium 40 MG Tablet PO (06:48)
[2018-02-04] MEDS: Ranolazine 500 MG Tablet 1000 MG PO ×2 (06:48→17:18)
[2018-02-04 06:49] VITALS: BP 112/72; PULSE 60
[2018-02-04] MEDS: Metoprolol Tartrate 25 MG Tablet PO ×2 (06:49→17:18)
[2018-02-04 06:51] LABS: Bedside Glucose 121 mg/dL (70-110)
[2018-02-04] MEDS: Menthol/Lanolin/Calamine/Znox 113 GM Tube 1 APPLIC TOPICAL ×3 (06:52→21:03)
--- NOTE | 2018-02-04 09:42 | NURSING ---
pt wakes shortly but does not stay awake. refusing to eat brkfst. private caregiver at bedside attempting to keep awake but unsuccessful. holding 0800 meds for now d/t lethargy this am. will attempt later when more alert.
[2018-02-04] MEDS: Multivitamins,Therapeutic Tablet 1 TABLET PO (11:44)
[2018-02-04] MEDS: Vitamin E 400 UNITS Capsule PO (11:44)
[2018-02-04] MEDS: Gabapentin 100 MG Capsule PO (11:44)
[2018-02-04] MEDS: traMADol 50 MG Tablet 100 MG PO ×2 (11:44→20:59)
[2018-02-04 15:38] VITALS: BP 104/67; PULSE 63; RESP 16; TEMP 36.5; O2SAT 98
[2018-02-04 17:18] VITALS: BP 104/67; PULSE 63
[2018-02-04 20:43] VITALS: O2SAT 95
[2018-02-04] MEDS: Mirtazapine 15 MG Tablet PO (20:59)
[2018-02-04] MEDS: Aspirin E.C. 81 MG Tablet PO (20:59)
[2018-02-04] MEDS: Atorvastatin Calcium 40 MG Tablet PO (20:59)
[2018-02-05 06:00] VITALS: BP 103/65; PULSE 60
[2018-02-05] MEDS: Pantoprazole Sodium 40 MG Tablet PO (06:43)
[2018-02-05] MEDS: Ranolazine 500 MG Tablet 1000 MG PO (06:43)
[2018-02-05 06:46] LABS: Bedside Glucose 111 mg/dL (70-110)
[2018-02-05] MEDS: Menthol/Lanolin/Calamine/Znox 113 GM Tube 1 APPLIC TOPICAL (06:48)
[2018-02-05] MEDS: traMADol 50 MG Tablet 100 MG PO (09:15)
[2018-02-05] MEDS: Multivitamins,Therapeutic Tablet 1 TABLET PO (09:17)
[2018-02-05] MEDS: Gabapentin 100 MG Capsule PO (09:17)
[2018-02-05] MEDS: Vitamin E 400 UNITS Capsule PO (09:17)
[2018-02-05 09:18] VITALS: PULSE 63
[2018-02-05] MEDS: Metoprolol Tartrate 25 MG Tablet PO (09:18)
[2018-02-05] MEDS: Polyethylene Glycol 3350 17 GM PACKET PO (09:19)
[2018-02-05 14:29] VITALS: BP 132/68; PULSE 63; RESP 16; TEMP 36.8
--- NOTE | 2018-02-13 10:41 | MDS.RN ---
Information for the mds was obtained from review of the clinical record, interview of resident, staff, and direct observation of resident's care.
== END 2018-02-05 12:10 | disposition home or self-care (01) | DRG 948 ==
PROVIDERS: Admitting Provider Family Medicine Geriatric Medicine; Family Provider Family Medicine; PCP Family Medicine; Referring Provider Family Medicine Geriatric Medicine; Visit Provider Family Medicine Geriatric Medicine
DX: R53.81 Other malaise (principal); I50.32 Chronic diastolic (congestive) heart failure; R47.01 Aphasia; I25.10 Atherosclerotic heart disease of native coronary artery without angina pectoris; E78.5 Hyperlipidemia, unspecified; I11.0 Hypertensive heart disease with heart failure; B02.9 Zoster without complications; B35.4 Tinea corporis; L89.311 Pressure ulcer of right buttock, stage 1; L89.321 Pressure ulcer of left buttock, stage 1; K21.9 Gastro-esophageal reflux disease without esophagitis; F32.9 Major depressive disorder, single episode, unspecified; F02.80 Dementia in other diseases classified elsewhere, unspecified severity, without behavioral disturbance, psychotic disturbance, mood disturbance, and anxiety; G30.9 Alzheimer's disease, unspecified; I25.2 Old myocardial infarction; Z86.73 Personal history of transient ischemic attack (TIA), and cerebral infarction without residual deficits; Z95.0 Presence of cardiac pacemaker; I48.2 Chronic atrial fibrillation; E11.65 Type 2 diabetes mellitus with hyperglycemia
CPT/HCPCS: 36415; 80048; 82040; 82962; 84134; 84156; 85025; 92523; 92610; 93005; 97110; 97116; 97163; 97166; 97530; 97535; 97802; A4216

== ENCOUNTER 2018-01-22 16:20 | Emergency (ER) | payer MEDICARE, OTHER, SELFPAY ==
[2018-01-22 16:22] VITALS: BP 105/75; PULSE 64; PULSE 68; RESP 24; RESP 25; TEMP 36.6; O2SAT 96; BMI 27.8
--- NOTE | 2018-01-22 16:46 | EKG12_ITS ---
Test Reason : CP Blood Pressure : / mmHG Vent. Rate : 062 BPM Atrial Rate : 062 BPM P-R Int : 186 ms QRS Dur : 182 ms QT Int : 474 ms P-R-T Axes : 095 261 053 degrees QTc Int : 481 ms Atrial-sensed ventricular-paced rhythm Abnormal ECG Confirmed by ADRY BARNES, TRIXIE ([id number]), fan mail editor HAROLDO VELAZQUEZ ([id number]) on 01/24/2018 4:27:53 PM Referred By: Yoan Valenzuela Confirmed By:TRIXIE RIDER MD
--- NOTE | 2018-01-22 16:53 | RAD_ITS ---
STUDY: X-RAY CHEST REASON FOR EXAM: Male, 77 years old. Chest pain TECHNIQUE: Single frontal view of the chest. COMPARISON: November 23, 2015 FINDINGS: There is no new focal consolidation. There is a pacer device in place. Normal size heart. Normal mediastinum and nina. Normal visualized pulmonary arteries. Normal visualized aortic arch and descending thoracic aorta. There are diffuse degenerative changes of the visualized thoracic spine. Normal visualized ribs, clavicles, and shoulders. There is no demonstrated abnormality of the visualized soft tissue structures of the upper abdomen. RAD/Chest 1 View (Portable) IMPRESSION: No acute cardiopulmonary process. Electronically Signed: Angella Guan MD at 17:35 EST Tel , Service support ,
[2018-01-22 17:34] VITALS: BP 123/86; PULSE 62; RESP 15; O2SAT 97
[2018-01-22 17:40] LABS: Absolute Lymphocyte Count 2.74 X10^3/ul (0.83-4.51); Absolute Neutrophil Count 3.6 X10^3/uL (2.0-7.7); Basophil# 0.05 X10^3/uL; Basophil% 0.7 % (0-1); Eosinophil# 0.15 X10^3/uL; Eosinophils% 2.1 % (0-5); Hematocrit 43.8 % (40-54); Hemoglobin 14.6 g/dl (13.0-16.5); Lymphocyte # 2.74 X10^3/ul (4.0); Lymphocyte % 38.1 % (19-41); Mean Corp Hgb Conc 33.3 g/gl (32-36); Mean Corpuscular Hgb 30.4 pg (27.0-32.0); Mean Corpuscular Volume 91.1 fL (80-94); Mean Platelet Vol. 9.3 fl (6.2-12.0); Monocyte# 0.65 X10^3/uL; POSITIVE COUNT NO; POSITIVE DIFFERENTIAL NO; POSITIVE MORPHOLOGY NO; Platelet Count 156 K/mm3 (150-450); RBC Distribution Width CV 13.4 % (11.6-14.6); RBC Distribution Width SD 44.2 fl (35.1-43.9); Red Blood Count 4.81 M/mm3 (4.6-6.2); White Blood Count 7.2 K/mm3 (4.4-11.0)
[2018-01-22 17:44] LABS: Anion Gap 7 (5-15); BUN 20 mg/dL (7-18); BUN/Creat Ratio 19.4 RATIO (10-20); Calcium,Total 8.8 mg/dL (8.5-10.1); Chloride 104 mmol/L (98-107); Creatinine, Serum 1.03 mg/dL (0.70-1.30); EST Glomerular Filtration Rate 74 mL/min (>60); Est Glom Filt Rate - Afr Amer 89 mL/min (>60); Estimated Creatinine Clearance 67.61 ml/min; Glucose 130 mg/dL (74-106); Potassium 4.2 mmol/L (3.5-5.1); Sodium Level 136 mmol/L (136-145)
[2018-01-22 18:07] VITALS: BP 123/84; PULSE 60; RESP 17; O2SAT 94
[2018-01-22] MEDS: 0.9% Normal Saline 1,000 ML 15 ML IV (18:07)
[2018-01-22 19:30] VITALS: BP 116/89; PULSE 67; RESP 19; O2SAT 97
--- NOTE | 2018-01-22 19:30 | EKG12_ITS ---
Test Reason : REPEAT Blood Pressure : / mmHG Vent. Rate : 060 BPM Atrial Rate : 060 BPM P-R Int : 138 ms QRS Dur : 186 ms QT Int : 478 ms P-R-T Axes : 000 252 069 degrees QTc Int : 478 ms Atrial-sensed ventricular-paced rhythm Abnormal ECG Confirmed by ADRY BARNES, TRIXIE ([id number]), online editor HAROLDO VELAZQUEZ ([id number]) on 01/24/2018 4:28:13 PM Referred By: Yoan Valenzuela Confirmed By:TRIXIE RIDER MD
[2018-01-22 19:57] VITALS: BP 116/88; PULSE 71; RESP 17; O2SAT 99
--- NOTE | 2018-01-22 20:12 | ED.DCSUM_ITS ---
- ER Visit Summary Date of Service: 01/22/18 Chief Complaint: Chest pain History of Present Illness: The patient is a 77 M sent down from TCU with chest pain. Per the nurse in TCU patient had angioplasty at [facility] on the . Patient is currently in TCU for rehab and shingles. Patient does report pain a nd rubs his lower chest. He denies shortness of breath. Past history significant for dementia, CVA, coronary disease, [place], diabetes, hypertension, high cholesterol, A. fib, Alzheimer's, shingles, ischemic cardia myopathy. He does have cardiac stents. After further family arrives it is noted the patient had angioplasty on the with no stent placement. He was on Plavix for 2 weeks only due to a small head bleed at the same time. Physical Examination: Vital signs unremarkable. Patient is lying in a hospital bed. He is in no acute distress. He is sleepy but will awaken to answer questions. He does fall back to sleep without stimulation. Head neck examination is grossly unremarkable. Heart is regular rate and rhythm. On lung sounds are clear. Abdomen is soft with no focal tenderness. He does have rash consistent with shingles on the left lower chest and upper abdomen that wraps to the left flank. Test Results: EKG is paced at 62 with no acute changes. CBC is normal. Chemistry studies show a BUN of 20 and a glucose of 130. Troponin is less than 0.015. Portable chest x-ray shows no acute process. Emergency Department Course and Treatment: On repeat examination patient is resting comfortably. He denies chest pain or shortness of breath. I discussed the case with daughter at bedside who is power of commonwealth attorney. She states that the patient had been taken back to [facility] at one point due to prolonged chest pain. It is felt the patient is having frequent chest pain secondary to his shingles. At this time we chose to do a repeat troponin and EKG at 3 hours. Repeat EKG and troponin are both unchanged. Patient at this time is discharged back to the TCU. He denies any pain at this time. Treatment Plan: [] Disposition: Discharge to TCU Impression: 1. Chest pain 2. Shingles This note was generated with [employer] dictation software. It may contain incorrect words, spelling, and punctuation that were not noted in review of the chart prior to signing ED Disposition - Plan for ED Patient: Disposition: Home or Assisted Living Chief Complaint: Chest Pain Instructions: ED Chest Pain NonCardiac Referrals: Gaston Yip [Primary Care Provider] -
[2018-01-22 20:25] VITALS: BP 128/92; PULSE 60; RESP 19; O2SAT 97
--- NOTE | 2018-01-22 20:27 | ED.RN ---
report called to [facility] in [facility]cu. Food given to family for pt when he gets to tcu
--- OUTSIDE RECORDS SUMMARY | 2018-03-06 16:33 | XMS RPT_ITS ---
:1940 Author Organization OHIP Support Name Relationship Address Phone JANETH MAYERSE Unavailable . + [place] [address] GIAUQUE, DARLETTA Unavailable [address] [facility] + [place] [address] R Unavailable Unavailable Unavailable MAYERS, RAMY Unavailable Unavailable + [place] [address] GIAUQUE, DARLETTA Unavailable [address] [facility] + [place] [address] R Unavailable Unavailable Unavailable MAYERS, RAMY Unavailable Unavailable + [place] [address] GIAUQUE, DARLETTA Unavailable [address] [facility] + [place] [address] R Unavailable Unavailable Unavailable MAYERS, RAMY Unavailable . + [place] [address] GIAUQUE, DARLETTA Unavailable [address] [facility] + [place] [address] R Unavailable Unavailable Unavailable GIAUQUE, DARLETTA Unavailable Unavailable + GIAUQUE, DARLETTA Unavailable Unavailable + GIAUQUE, DARLETTA Unavailable Unavailable + GIAUQUE, DARLETTA Unavailable [address] [facility] + [place], [place] [phone] NOT GIVEN Unavailable Unavailable Unavailable GIAUQUE, DARLETTA Unavailable Unavailable + GIAUQUE, DARLETTA Unavailable Unavailable + GIAUQUE, DARLETTA Unavailable Unavailable + GIAUQUE, DARLETTA Unavailable Unavailable + GIAUQUE, DARLETTA Unavailable Unavailable + GIAUQUE, DARLETTA Unavailable Unavailable + GIAUQUE, DARLETTA Unavailable Unavailable + GIAUQUE, DARLETTA Unavailable Unavailable + GIAUQUE, DARLETTA Unavailable Unavailable + GIAUQUE, DARLETTA Unavailable [address] + [place], [place] [id number] NOT GIVEN Unavailable Unavailable Unavailable GIAUQUE, DARLETTA Unavailable Unavailable + GIAUQUE, DARLETTA Unavailable Unavailable + GIAUQUE, DARLETTA Unavailable Unavailable + MAYERS, RAMY Unavailable . + [place] [address] GIAUQUE, DARLETTA Unavailable [address] + [place] [address] R Unavailable Unavailable Unavailable MAYERS, RAMY Unavailable . + [place] [address] GIAUQUE, DARLETTA Unavailable [address] + [place] [address] R Unavailable Unavailable Unavailable MAYERS, RAMY Unavailable Unavailable + [place] [address] GIAUQUE, DARLETTA Unavailable [address] + [place] [address] R Unavailable Unavailable Unavailable GIAUQUE, DARLETTA Unavailable [address] + [place] [address] R Unavailable Unavailable Unavailable GIAUQUE, DARLETTA Unavailable [address] + [place] [address] R Unavailable Unavailable Unavailable GIAUQUE, DARLETTA Unavailable [address] + [place] [address] R Unavailable Unavailable Unavailable GIAUQUE, DARLETTA Unavailable [address] + [place] [address] R Unavailable Unavailable Unavailable GIAUQUE, DARLETTA Unavailable [address] + [place] [address] R Unavailable Unavailable Unavailable GIAUQUE, DARLETTA Unavailable [address] + [place] [address] R Unavailable Unavailable Unavailable GIAUQUE, DARLETTA Unavailable [address] + [place] [address] R Unavailable Unavailable Unavailable SHELLI BRAVO Unavailable [address] + [place] [address] R Unavailable Unavailable Unavailable Care Team Providers Name Role Phone Ping Lopes Attending Unavailable Brown, Gaston Referring Unavailable Ping Lopes Attending Unavailable Brown, Gaston Referring Unavailable Brown, Gaston Primary Care Unavailable Tasha Walls Attending Unavailable Brown, Gaston Referring Unavailable Brown, Gaston Primary Care Unavailable Sloan Rider Attending Unavailable Tasha Walls Referring Unavailable Brown, Gaston Primary Care Unavailable Yana Parr Attending Unavailable Ping Lopes Attending Unavailable Brown, Gaston Referring Unavailable Brown, Gaston Primary Care Unavailable Ping Lopes Attending Unavailable Brown, Gaston Referring Unavailable Brown, Gaston Primary Care Unavailable Quintin Smith Attending Unavailable Brown, Gaston Referring Unavailable Brown, Gaston Primary Care Unavailable Jie Owens Attending Unavailable Jie Owens Referring Unavailable Sloan Rider Attending Unavailable Brown, Gaston Referring Unavailable MariannePnig mckeon Attending Unavailable Brown, Gaston Referring Unavailable Nicolas, Yoan Chi Admitting Unavailable Nicolas, Yoan Chi Attending Unavailable Nicolas, Yoan Chi Referring Unavailable Brown, Gaston Primary Care Unavailable Brown, Gaston Primary Care Unavailable Paris Webb Attending Unavailable Sloan Rider Attending Unavailable Nicolas, Yoan Chi Referring Unavailable Quintin Smith Attending Unavailable BROWN, GASTON Admitting Unavailable BROWN, GASTON Attending Unavailable BROWN, GASTON Primary Care Unavailable XAVIER, GASTON Consulting Unavailable PROVIDER, UNKNOWN Consulting Unavailable PROVIDER, UNKNOWN Consulting Unavailable PROVIDER, UNKNOWN Consulting Unavailable HABERBERGER, HARSH M Admitting Unavailable HABERBERGER, HARSH M Attending Unavailable BROWN, GASTON Referring Unavailable HABERBERGER, HARSH M Primary Care Unavailable XAVIER GASTON Consulting Unavailable PROVIDER, UNKNOWN Consulting Unavailable PROVIDER, UNKNOWN Consulting Unavailable PROVIDER, UNKNOWN Consulting Unavailable XAVIER BARNES, GASTON Weber Primary Care Unavailable ANDERSON PARTIDA MD Admitting Unavailable BOLIVAR LOOMIS Attending Unavailable LARA MENDEZ Consulting Unavailable GILL ALMAZAN, DR. HERNÁNDEZ Consulting Unavailable REBEL BARNES, CORY Consulting Unavailable DERICK KUNZ MD Consulting Unavailable JAM GOULD MD Consulting Unavailable ERROL BARNES, QUINTIN Schwartz Consulting Unavailable MILLER ACUÑA MD Consulting Unavailable LEXI ALMAZAN, DR. SEBASTIÁN Consulting Unavailable KENROY RICHARDS CNP Attending Unavailable GASTON YIP MD Primary Care Unavailable LARA MENDEZ Attending Unavailable GASTON YIP MD Primary Care Unavailable GASTON YIP MD Primary Care Unavailable DONIS SIMON MD Admitting Unavailable DR. RASHEL IZAGUIRRE DO Attending Unavailable GASTON YIP MD Consulting Unavailable KAI GARCIA MD Consulting Unavailable SHY BARNES, ARI Consulting Unavailable LARA MENDEZ Consulting Unavailable TEZ ALMAZAN, DR. MANNY Harvey Admitting Unavailable TEZ ALMAZAN, DR. MANNY Harvey Attending Unavailable GASTON YIP MD Primary Care Unavailable KAI GARCIA MD Consulting Unavailable GUADALUPE CHAN MD Consulting Unavailable PROBLEMS PROBLEMS DATE TYPE CONDITION / CODE ATTENDING STATUS SOURCE 02/01/2018 Unknown I48.91 - Unspecified MoodisSloan acevedo [facility] atrial fibrillation / Community I48.91(ICD-10) Hospital Repository 02/01/2018 Unknown I25.10 - MoodisSloan acevedo [facility] Atherosclerotic heart Community disease of [facility] coronary artery Repository without angina pectoris / I25.10(ICD-10) 02/01/2018 Unknown R07.9 - Chest pain, Sloan Rider [facility] unspecified / Community R07.9(ICD-10) Hospital Repository 02/01/2018 Unknown I25.2 - Old MoodisSloan acevedo [facility] myocardial infarction Community / I25.2(ICD-10) Hospital Repository 02/05/2018 Unknown R53.81 - Other Nicolas, Yoan Chi [facility] malaise / Community R53.81(ICD-10) Hospital Repository 02/05/2018 Unknown R41.841 - Cognitive Nicolas, Yoan Chi [facility] communication deficit Community / R41.841(ICD-10) Hospital Repository 12/20/2017 Unknown I48.1 - Persistent MoodispaSloan quintero [facility] atrial fibrillation / Community I48.1(ICD-10) Hospital Repository 12/20/2017 Unknown I10 - Essential MoodispaSloan quintero [facility] (primary) Community hypertension / Hospital I10(ICD-10) Repository 09/20/2017 Unknown R82.99 - Other Graciela, Jie [facility] abnormal findings in M Community urine / Hospital R82.99(ICD-10) Repository 05/18/2017 Unknown Z79.899 - Other long Moodispaw, Sloan [facility] term (current) drug Community therapy / Hospital Z79.899(ICD-10) Repository 05/18/2017 Unknown E78.5 - MoodSloan moeller [facility] Hyperlipidemia, Community unspecified / Hospital E78.5(ICD-10) Repository PROCEDURES PROCEDURES No Procedure Records FoundRESULTS RESULTS CARDIOLOGY VISIT Observed: 02/05/2018 Status: F Source: KAKE REPORT 4:23 PM [facility] REPOSITORY [facility] [address] [place] [address] OFFICE VISIT Date of Service: 02/01/18 MR#: [id number] Acct: [id number] Name: BERT BRAVO Rep #: [id number] : 1940 Provider: ROHIT Smith Age/Sex: 77/M Location: [facility] Status: Signed HPI HPI Chief Complaint: debility Details: BERT BRAVO, is a 77 M who presents to the office today for a cardiovascular outpatient follow-up. He has a history of coronary artery disease status post stenting to RCA, LCx, and OM in April and May 2014. He underwent angioplasty without stenting on 01/12/2018 at [facility] to OM#1. He also has a history of ischemic cardiomyopathy, conduction system abnormality, status post permanent pacemaker placement, hyperlipidemia, and Normal Pressure Hydocephalus with conservative medical management. Recently evaluated [facility] in December 2017 for two admissions. He initially had concerns for strokelike symptoms. His CT scan showed possible bleed. He was discharged and readmitted for chest pain. He underwent a heart catheterization on January 12, 2018 and resulted in angioplasty and no stenting due to concerns of recent bleed. This was after a positive stress test. He underwent a carotid duplex ultrasound that showed severe left vertebral artery stenosis. He was asked to follow-up with vascular for left vertebral artery stenosis and continue antiplatelet therapy. Neurology felt that patient should undergo a repeat CT scan to discern for changes. Per daughter the area of concern may be related to calcium buildup. Thus Plavix therapy will be held until further evaluated by neurology as an outpatient. Patient is currently residing in [facility]. He was evaluated in the emergency department on 01/22/2018 for ongoing chest pain. His cardiac enzymes and EKG were negative. It was felt that his chest pain was related to herpes zoster/shingles. He was discharged back to TCU. Patient continues to have left sided of his chest. This pain is left upper chest and left upper quadrant. This pain is associated with shortness of breath. There is no nausea or diaphoresis noted. This can last up to 1-1-1/2 hours. Daughter feels that it may be worse since his angioplasty. His overall appetite has decreased. His daughter states that he will see Dr. Gould is 6 months to further evaluation vertebral artery stenosis and will consider ABIs due to leg pain/weakness. He will undergo repeat CT scan March 06 to evaluate to bleed versus calcification. Daughter feels that his energy level is low, but is improving. Due to worsening dementia, he is being considered for a shunt evaluation in February. He does have some teeth needing extracted that will occur in the near future. His daughter states that his colonoscopy has been postponed due to recent health issues and would like to see if this can be done in the future or if still needed. Intake Vital Signs02/01/18 Height 6 ft 2 in 02/01/18 Weight: 207 lb 02/01/18 Body Mass Index (BMI) 26.6 02/01/18 Blood Pressure 98/66 02/01/18 Blood Pressure Location Rt brachial Intake Visit Reasons: 6 m fu Griddle Attendant Required: No Accompanied by: Daughter Is patient in pain?: Yes (chest-unclear if from shingles) Allergies citalopram [From Celexa] Adverse Reaction (Intermediate, Verified 02/01/18 15:24) Unknown isosorbide [From Imdur] Adverse Reaction (Verified 02/01/18 15:24) Low blood pressure lisinopril Adverse Reaction (Verified 02/01/18 15:24) Low blood pressure Medications aspirin 81 mg tablet,delayed release 81 mg PO QHS tab 05/16/17 [History Confirmed 02/01/18] furosemide 20 mg tablet 20 mg PO QDAY PRN 05/16/17 [History Confirmed 02/01/18] nitroglycerin 0.4 mg sublingual tablet 0.4 mg SUBLINGUAL Q5M PRN 05/16/17 [History Confirmed 02/01/18] pantoprazole 40 mg tablet,delayed release 40 mg PO QDAY 05/16/17 [History Confirmed 02/01/18] ranolazine ER 500 mg tablet,extended release,12 hr 500 mg PO BID tab 05/16/17 [History Confirmed 02/01/18] metformin 500 mg tablet 500 mg PO BIDCM tab 09/12/17 [History Confirmed 02/01/18] multivitamin tablet 1 tab PO QDAY 09/12/17 [History Confirmed 02/01/18] vitamin E (dl, acetate) 400 unit capsule 400 unit PO QDAY 09/12/17 [History Confirmed 02/01/18] Glucerna Shake 120 ml PO TIDCM 01/18/18 [History Confirmed 02/01/18] Ketoconazole 10 ml TP QODAY 01/18/18 [History Confirmed 02/01/18] Menthol/Lanolin/Calamine/Znox [Calmoseptine Ointment] 1 applic TOPICAL TID 01/18/18 [History Confirmed 02/01/18] Metoprolol Tartrate 25 mg PO BID 01/18/18 [History Confirmed 02/01/18] Polyethylene Glycol 3350 [Miralax] 17 gm PO DAILY 01/18/18 [History Confirmed 02/01/18] Acetaminophen [Tylenol Extra Strength] 1,000 mg PO Q6H PRN PRN 01/22/18 [History Confirmed 02/01/18] Atorvastatin Calcium [Lipitor] 40 mg PO QHS 01/22/18 [History Confirmed 02/01/18] Atorvastatin Calcium [Lipitor] 40 mg PO QHS tab 02/01/18 [Rx] Ensure Enlive 120 ml PO 4X/DAY liquid 02/01/18 [Rx] Gabapentin [Neurontin] 100 mg PO DAILYCM cap 02/01/18 [Rx] Hydrocortisone 2.5% Crm [Hytone] 1 applic TOPICAL TID PRN PRN tube 02/01/18 [Rx] Ketoconazole 10 ml TP Q48H PRN shampoo 02/01/18 [Rx] Mirtazapine [Remeron] 15 mg PO QHS #30 tab 02/01/18 [Rx] Polyethylene Glycol 3350 [Miralax] 17 gm PO MoWeFr@1000 packet 02/01/18 [Rx] mirtazapine 15 mg tablet 15 mg PO DAILY 02/01/18 [History Confirmed 02/01/18] traMADol [Ultram] 100 mg PO Q6H PRN PRN #30 tab 02/01/18 [Rx] traMADol [Ultram] 100 mg PO Q6H PRN PRN #30 tab 02/01/18 [Rx] Ejection fraction %: 50 to 54 PFSH Medical History Atrial fibrillation (Chronic) Hypertension (Chronic) Atherosclerotic heart disease of 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) Surgical History Presence of other cardiac implants and grafts (Chronic) Presence of cardiac pacemaker (Chronic) Family History Other Heart disease Social History Smoking Status: Never smoker alcohol intake: never caffeine: Yes Type: coffee Number of servings: 2 ROS Const Const: Positive for fatigue (improving) and weakness; negative for weight gain, weight loss or excessive sweating Eyes Eyes: Negative for change in vision or transient loss of vision ENT ENT: Positive for dizziness (HX NPH) and balance problems Cardio Chest Pain: Yes Location: left chest Duration: hours (1-1.5) Palpitations: No Edema: Bilateral Muscle aches with walking: Bilateral Additional Details: Resp Respiratory: Positive for SOB with activity and SOB at rest (with chest pain) GI GI: Positive for other (decrease oral intake); negative vomiting or vomiting blood/hematemesis : Negative for hematuria Musc Musc: Positive for balance problems Skin Skin: Negative non-healing lesions or rash Neuro Neuro: Positive for weakness and dizziness (HX NPH) Phi Hematologic/Lymphatic: Negative for easy bleeding Endo Endo: Positive for fatigue (improving); negative for excessive sweating Psych Psych: Negative for anxiety or depression Allergy Allergy/Immunology: Negative for rash Cardiology Exam Const Appearance: no acute distress, other (examined in the wheelchair) and lethargic Nutritional Appearance: overweight Orientation: alert and other Head Head: normal to inspection Nose: external nose normal Face and Sinus: face symmetric Mouth: oral mucosae normal Teeth and gingiva: poor dentition Eyes General: appearance normal, both eyes and all related structures Eyelids: eyelids normal Conjunctivae: conjunctivae normal Pupils: PERRL EOM: EOM intact bilaterally Neck Neck: no JVD, normal visual inspection and full ROM Carotids: normal carotid upstroke Chest Chest inspection: normal inspection of the chest, normal respiratory effort and symmetric chest movement; negative cough Auscultation: Bilateral: Clear to Auscultation Cardio Rate: regular rate Rhythm: regular rhythm Heart sounds: S1 normal and S2 normal; negative rub or gallop GI GI: normal to inspection Neuro General: alert, awake, oriented x3 and moves all extremities Skin Skin: no rashes or lesions noted Extremities Pulses: Normal: Right Radial Pulse, Left Radial Pulse, Diminished: Right Posterior Tibial Pulse, Left Posterior Tibial Pulse Lower Extremity Edema: +1: Left, Trace: Bilateral Psych Psychological: normal affect Supplemental Info Transthoracic echocardiogram: 12/29/2017 [facility]: Summary: Mildly increased left ventricle wall thickness, estimated ejection fraction 55-60%, grade 1 diastolic dysfunction, aortic valve thickening consistent with sclerosis, trivial mitral valve regurgitation, mildly dilated left atrium, RVSP 37 mmHg, right atrial pressure 3 mmHg, trivial tricuspid regurgitation, and trivial pulmonic valve regurgitation. Stress test: 11/13/2014 The patient underwent pharmacologic regadenoson evaluation with a peak heart rate of 78 beats per minute (54% predicted maximum heart rate) and a peak blood pressure of 138/86 mmHg. The baseline ECG demonstrated an electronic ventricular paced rhythm. The peak pharmacologic ECG was considered indeterminate secondary to an underlying electronic ventricular paced rhythm. There was a rare premature ectopic complex in recovery. There was no report of chest discomfort during pharmacologic infusion or recovery. The examination was discontinued secondary to completion of protocol. IMPRESSION: 1. Pharmacologic regadenoson evaluation. 2. Peak pharmacologic ECG considered indeterminate secondary to electronic ventricular paced rhythm. 3. Rare premature ectopic complex in recovery. 4. Nuclear images pending. MYOCARDIAL PERFUSION IMAGING STUDY: TECHNIQUE: The patient was injected with 14.6 mCi of Tc99m Cardiolite and subsequently rest SPECT Cardiolite nuclear imaging was obtained in the horizontal long, vertical long and short axes views. The patient underwent pharmacologic regadenoson evaluation with a peak heart rate of 78 beats per minute (54% predicted maximum heart rate) and a peak blood pressure of 138/86 mmHg. The patient was injected with 42.2 mCi of Tc99m Cardiolite and subsequently stress SPECT Cardiolite nuclear imaging was obtained in the horizontal long, vertical long and short axes views. A gated Cardiolite study at peak stress was obtained. INTERPRETATION: Rest and stress SPECT Cardiolite nuclear imaging both demonstrate areas of diminished to absence of tracer uptake in portions of the basal inferoseptal, basal inferior, and basal inferolateral segments, which extends through the mid to distal inferior and inferior apical segments and lateral apical segments, which appears potentially somewhat more prominent at rest as opposed to stress and/or without significant change. There are similar type findings on the resting and stress polar map images. There is notation of diminished end systolic thickening and brightening in the aforementioned areas. The gated Cardiolite study demonstrates diminished myocardial thickening and inward wall motion in the aforementioned areas. The reported LVEF was 41%. The aforementioned findings appear compatible with a combination of shifting soft tissue attenuation/artifact being more prominent at rest as opposed to stress as well as an area of previous myocardial injury/infarction with no myocardial perfusion changes considered diagnostic for associated stress-induced myocardial ischemia. IMPRESSION: 1. Rest and stress SPECT Cardiolite nuclear imaging demonstrate myocardial perfusion changes appearing compatible with a combination of shifting soft tissue attenuation/artifact being somewhat more prominent at rest as opposed to stress as well as an area of previous myocardial injury/infarction involving portions of the basal inferoseptal, basal inferior, basal inferolateral, and the mid to distal inferior/inferoapical and lateral apical segments. 2. There is no myocardial perfusion changes considered diagnostic for associated stress- induced myocardial ischemia. 3. The gated Cardiolite study reports an LVEF of 41%. Cardiac cath: 07/24/2015 [facility]: Summary: Left ventricle systolic function at the lower limits of normal with an LVEF of 45-50%; LAD with proximal 50% stenosis PTCA/stent: 05/28/2014 [facility]: Summary: Proximal LCx PTCA/stent; mid LCx PTCA/stent; first OM proximal PTCA/stent Permanent pacemaker [employer] Dipper: [employer] Name: Darlene ARGUETA Model #: [id number] Serial #: [id number] Date Implanted: 05/13/2014 Device Characteristics Device: Dual Chamber Type: Pacemaker Remote:Stevie.NET Patient Characteristics AV Node Indication: Second degree AV block Patient Substrate: symptomatic bradycardia Pacemaker Dependent: No Remote pacemaker check November 2017 showed no MS episodes, no AT/AF episode, no VHR episodes, presenting rhythm is AV sequential paced at 60 ppm, ROTARY ENGINE ASSEMBLER=97%, and estimated battery life 8.5 2.8 years. Assessment AND Plan 1. Chest pain, unspecified type R07.9 Plan Patient has been evaluated at [facility] emergency department for this. His hospitalization at [facility] included 2 echocardiograms, stress test, and heart catheterization. Underwent PTCA/ballooning to OM 1. Detailed report from heart catheterization is not available for review. Per daughter patient initially had echocardiogram during his first admission that showed a preserved ejection fraction of 55-60%. During his second admission his ejection fraction was reduced, his echocardiogram report is not available for review, which prompted stress testing and ultimately heart catheterization. Patient continues ongoing left-sided chest pain. It is unclear if this is cardiac in origin or related to recent diagnosis of shingles. Other possibilities may include coronary spasm, though this has not been noted. This will be discussed further with Dr. Rider regarding further input. Patient has tried isosorbide in the past that resulted in low blood pressure. He is currently on Ranexa 500 mg twice daily. Thus, patient's reports from [facility] will be requested for review and further consideration for medication adjustment of Ranexa and/or addition of Norvasc will be considered. 2. Atherosclerosis [place] coronary artery of [place] heart without angina pectoris I25.10 S/P RCA, LCX, and OM PTCA/SARKIS in April and May of 2014; PTCA/ballooning to OM1 at [facility] in December 2017; Plan Patient is status post stenting in 2014 and most recently ballooning to OM1 in December 2017. It is unclear if patient's current chest pain is related to cardiac in origin. At this time, his records from [facility] will be requested for detailed review. He will continue with current low-dose beta-yarelis. 3. Ischemic cardiomyopathy I25.5 Plan His echocardiogram from 12/29/2017 showed ejection fraction of 55-60%. However, daughter states that during his second admission at [facility] his ejection fraction was reduced. This report is not available for review, this will be requested. Patient does not appear to be in a fluid volume overload state. He is not requiring any supplemental oxygen. Per daughter and staff, patient's shortness of breath is most noted during times of chest pain. At this time we will continue to monitor. 4. Presence of cardiac pacemaker Z95.0 Pacemaker implant 05/15/14 Plan Remote pacemaker check from November 2017 showed no MS episodes, no AT/AF episode, no VHR episodes, presenting rhythm is AV sequential paced at 60 ppm, ROTARY ENGINE ASSEMBLER=97%, and estimated battery life 8.5 2.8 years. His pacemaker appears to be functioning appropriately. He will continue follow-up with pacemaker clinic. 5. Essential hypertension I10 Plan Patient's blood pressure is well-controlled today in the office. We will continue to monitor this. We will not make any medication regimen changes. 6. Mixed hyperlipidemia E78.2 Plan Lipid panel from April 2017 showed cholesterol: 135, HDL: 36, LDL: 61, and triglycerides: 89. He will continue with current statin medication. 7. sagger soak (current) use of antithrombotics/antiplatelets Z79.02 Plan Patient's Plavix is currently on hold due to initial concerns of CVA related to a hemorrhage. Per daughter there is question if this is noted to be a bleed or calcification. Patient's repeat CT scans do not show any changes, thus it is believed this may be related to calcification. He will be following up with neurology in or early February and at that time he will undergo a repeat CT scan. Per daughter, if this is unchanged the believe that it is more calcification and patient could potentially resume his Plavix. 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 Thus, neurology's assessment will indicate when patient can resume Plavix therapy. Based on his extensive cardiac disease, restarting this would be optimal. In the interim, he will continue with aspirin therapy. Plan Detail Additional Comments Thank you for allowing us to participate in the patients plan of care, if you have any questions please do not hesitate to call. This note was generated using a voice recognition system and there may be incorrect words, spelling or punctuation that were not noted when reviewing the office note prior to saving. Coding Level of Care Code Off vis,est,level 3 Diagnoses Chest pain, unspecified type R07.9 Chest pain type: unspecified Atherosclerosis of [place] coronary artery of [place] heart without angina pectoris I25.10 [place] vs. transplanted heart: 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 vs. transplanted heart: [place] heart Ischemic cardiomyopathy I25.5 Presence of cardiac pacemaker Z95.0 Essential hypertension I10 Hypertension type: essential hypertension Mixed hyperlipidemia E78.2 Hyperlipidemia type: mixed hyperlipidemia correction (current) use of antithrombotics/antiplatelets Z79.02 02/05/18 1623 <Electronically signed by Quintin PASCUAL> Date Quintin PASCUAL Cosigner Signature: Date (if applicable) CC: BEDSIDE GLUCOSE Collected: 02/05/2018 Status: F Source: KAKE 6:38 AM [facility] REPOSITORY TYPE CODE TESTS RESULT OUT OF REFERENCE UNITS RANGE LAB L501.080 70-110 mg/dL High BEDSIDE GLU 111 Result Comment: MANAGEMENT OF PATIENT CARE PER NURSING PROTOCOL Performed By: #### L501.080 #### [facility] Point of Care [address] [place] [address] BEDSIDE GLUCOSE Collected: 02/04/2018 Status: F Source: JENNIFER 6:43 AM [facility] REPOSITORY TYPE CODE TESTS RESULT OUT OF REFERENCE UNITS RANGE LAB L501.080 70-110 mg/dL High BEDSIDE GLU 121 Result Comment: MANAGEMENT OF PATIENT CARE PER NURSING PROTOCOL Performed By: #### L501.080 #### [facility] Point of Care [address] [place] [address] BEDSIDE GLUCOSE Collected: 02/03/2018 Status: F Source: JENNIFER 6:45 AM [facility] REPOSITORY TYPE CODE TESTS RESULT OUT OF REFERENCE UNITS RANGE LAB L501.080 70-110 mg/dL High BEDSIDE GLU 140 Result Comment: MANAGEMENT OF PATIENT CARE PER NURSING PROTOCOL Performed By: #### L501.080 #### [facility] Point of Care [address] [place] [address] BEDSIDE GLUCOSE Collected: 02/02/2018 Status: F Source: JENNIFER 6:57 AM [facility] REPOSITORY TYPE CODE TESTS RESULT OUT OF REFERENCE UNITS RANGE LAB L501.080 70-110 mg/dL High BEDSIDE GLU 134 Result Comment: MANAGEMENT OF PATIENT CARE PER NURSING PROTOCOL Performed By: #### L501.080 #### [facility] Point of Care [address] [place] [address] BASIC METABOLIC Collected: 02/02/2018 Status: F Source: JENNIFER PROFILE (BMP) 5:15 AM [facility] REPOSITORY TYPE CODE TESTS RESULT OUT OF RANGE REFERENCE UNITS LAB L501.0100 74-106 mg/dL High GLU 114 Result Comment: Fasting Glucose result from 100 to 125 mg/dL suggests IMPAIRED HOMEOSTASIS per A.D.A. criteria. Please note revised GLUCOSE reference range effective 2017. LAB L501.1000 7-18 mg/dL High BUN 24 LAB L501.1100 0.70-1.30 mg/dL Normal CREAT,SERUM 1.03 Result Comment: The validity of the calculated GFR AND GFRAA in patients over 70 years has not been determined. Clinical correlation is essential. LAB L501.1110 >60 mL/min Normal EST GFR 74 Result Comment: Non- GFR Calc LAB L501.1115 >60 mL/min Normal EST GFR - AA 89 Result Comment: GFR Calc LAB L501.1255 ml/min Normal Estimated CRCL 67.61 LAB L501.1300 10-20 RATIO High BUN/CRE 23.3 LAB L501.2200 8.5-10 mg/dL Normal .1 CA 8.9 LAB L501.5300 136-14 mmol/L Normal 5 NA 141 LAB L501.5600 3.5-5. mmol/L Normal 1 K 4.5 LAB L501.5900 98-107 mmol/L Normal CL 105 LAB L501.6100 21.0-3 mmol/L Normal 2.0 CO2 29.0 LAB L501.6200 5-15 Normal GAP 7 Performed By: #### L500.2500, L001.0705, L501.1800, L506.0500 #### [facility] [address] [place], [address] PROTEIN, TOTAL Collected: 02/02/2018 Status: F Source: KAKE 5:15 AM [facility] REPOSITORY TYPE CODE TESTS RESULT OUT OF RANGE REFERENCE UNITS LAB L501.1500 6.4-8.2 g/dL Normal T PROT 6.6 LAB L501.1950 2.2-4.2 g/dL Normal GLOB 3.4 LAB L501.2000 0.9-2.4 RATIO Normal A/G 0.9 Performed By: #### L500.2500, L001.0705, L501.1800, L506.0500 #### [facility] [address] [place], [address] ALBUMIN, SERUM Collected: 02/02/2018 Status: F Source: KAKE 5:15 AM [facility] REPOSITORY TYPE CODE TESTS RESULT OUT OF RANGE REFERENCE UNITS LAB L501.1800 3.2-5.0 g/dL Normal ALB 3.2 Performed By: #### L500.2500, L001.0705, L501.1800, L506.0500 #### [facility] [address] [place], [address] PREALBUMIN Collected: 02/02/2018 Status: F Source: KAKE 5:15 AM [facility] REPOSITORY TYPE CODE TESTS RESULT OUT OF RANGE REFERENCE UNITS LAB L506.0500 20.0-40.0 mg/dL Normal PREALBUMIN 27.2 Performed By: #### L500.2500, L001.0705, L501.1800, L506.0500 #### [facility] [address] [place], [address] CBC W/DIFF, AUTOMATED Collected: 02/02/2018 Status: F Source: KAKE 5:15 AM [facility] REPOSITORY TYPE CODE TESTS RESULT OUT OF RANGE REFERENCE UNITS LAB L100.1000 4.4-11.0 K/mm3 Normal WBC 7.5 LAB L100.1200 4.6-6.2 M/mm3 Low RBC 4.42 LAB L100.1300 13.0-16.5 g/dl Normal HGB 13.6 LAB L100.1400 40-54 % Normal HCT 41.3 LAB L100.1500 80-94 fL Normal MCV 93.4 LAB L100.1600 27.0-32.0 pg Normal MCH 30.8 LAB L100.1700 32-36 g/gl Normal MCHC 32.9 LAB L100.1810 11.6-14.6 % Normal RDW CV 12.9 LAB L100.1820 35.1-43.9 fl Normal RDW SD 42.8 LAB L100.1900 150-450 K/mm3 Normal PLT 263 LAB L100.2000 6.2-12.0 fl Normal MPV 8.9 LAB L100.2100 47-70 % Normal NEUT% 54.1 LAB L100.2200 19-41 % Normal LY% 29.4 LAB L100.2300 0-10 % High MONO% 11.5 LAB L100.2400 0-5 % Normal EO% 4.3 LAB L100.2500 0-1 % Normal BASO% 0.4 LAB L100.2550 0.0-0.9 % Normal IM GRAN % 0.300 Result Comment: IG% - Immature Granulocytes (promyelocytes, myelocytes and metamyelocytes) > 1% indicates that a LEFT SHIFT is Present. LAB L100.2620 2.0-7.7 X10 3/uL Normal Absolute Neut 4.1 LAB L100.2720 0.83-4.51 X10 3/ul Normal Absolute Lymph 2.20 Performed By: #### L100.0100 #### [facility] [address] [place], [address] HOME HEALTH PROGRESS Observed: 02/01/2018 Status: F Source: KAKE NOTE 9:23 PM [facility] REPOSITORY [facility] Medical Records Department [address] [place] [address] Home Health Progress Note [id number] Encounter Encounter Date: 02/01/182121 MR#: [id number] Acct: [id number] Name: BERT BRAVO Rep #: [id number] : 1940 77 From: Yoan Valenzuela MD PCP: Gaston Yip MD Status: ADM IN Location: [facility] TCU19-1 Home Health Note - Plan Overview of reason of hospitalization: The patient is a 77 year old Male with below past medical history admitted from home with debility secondary herpes zoster, to TCU for rehabilitation, strengthening, prior to discharge home alone. Discharge home with 24 hour caregivers, Home Health Services PT/OT. Problems: Patient was seen for (Last Updated 02/01/18 @ 15:22 by Sandra Moody) Debility (Acute) Herpes zoster (Acute) Diabetes mellitus (Chronic) Coronary artery disease (Chronic) Stroke (Chronic) Alzheimer's disease (Chronic) Depression (Chronic) Complete List of Medical Problems (Last Updated 02/01/18 @ 15:22 by Sandra Moody) Debility (Acute) Herpes zoster (Acute) Diabetes mellitus (Chronic) Coronary artery disease (Chronic) Stroke (Chronic) Alzheimer's disease (Chronic) Depression (Chronic) Atrial fibrillation (Chronic) Hypertension (Chronic) Atherosclerotic heart disease of 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) Ischemic cardiomyopathy (Acute) Second degree atrioventricular block (Chronic) Presence of cardiac pacemaker (Chronic) H/O: stroke (Chronic) H/O myocardial infarction, greater than 8 weeks (Chronic) Diabetes type 2, uncontrolled (Chronic) Dementia (Chronic) Pressure ulcer of right buttock, stage 1 (Acute) Pressure ulcer of left buttock, stage 1 (Acute) - Requirements and Reasons Disciplines Needed/Ordered: Physical Therapy Reason for Disciplines: Disease Specific Monitoring/education, Medication Management/Knowledge Deficit, Gait Training, Stair Training, Fall Prevention, Home Safety/Equipment Instruction, Balance and/or Posture Training, Transfer Training Related To: Change in Medical Treatment Plan, Limited/Poor Endurance, Shortness of Breath with Activity, Physical Impairments, Unsteady Gait/Balance, Intractable Pain, Fall Risk Patient is unable to leave the home: Without Aid of Supportive Devices (crutches, cane, wheelchair, walker), Without the assistance of another person - Additional Disciplines Additional Disciplines Needed/Ordered: Occupational Therapy 02/01/182122 <Electronically signed by Yoan Valenzuela MD> Date Yoan Valenzuela MD Cosigner Signature (if indicated): Date CC: Signed DISCHARGE SUMMARY Observed: 02/01/2018 Status: F Source: KAKE 9:22 PM [facility] REPOSITORY [facility] Medical Records Department [address] [place] [address] Discharge Summary 02/01/182119 MR#: [id number] Acct: [id number] Name: BERT BRAVO Rep #: [id number] : 1940 77 From: Yoan Valenzuela MD PCP: Gaston Yip MD Status: ADM IN Location: [place] [address] Discharge Date and Diagnosis - Problem List Patient Problems: Active and Suspected Problems (Last Updated 02/01/18 @ 15:22 by Sandra No) Debility (Acute) Herpes zoster (Acute) Date of Admission: 01/18/18 Date of Discharge: 02/05/18 - Primary Discharge Diagnosis Active and Suspected Problems (Last Updated 02/01/18 @ 15:22 by Sandra Moody) Debility (Acute) Herpes zoster (Acute) - Secondary Discharge Diagnosis Chronic Problems (Last Updated 02/01/18 @ 15:22 by Sandra Moody) Diabetes mellitus (Chronic) Coronary artery disease (Chronic) Stroke (Chronic) Alzheimer's disease (Chronic) Depression (Chronic) Atrial fibrillation (Chronic) Hypertension (Chronic) Atherosclerotic heart disease of [place] coronary artery without angina pectoris (Chronic) S/P RCA, LCX, and OM PTCA/SARKIS in April and May of 2014; Stroke determined by clinical assessment (Chronic) Hyperlipidemia (Chronic) Presence of other cardiac implants and grafts (Chronic) Staged PCI done 05/15/14 to RCA AND then readmitted 05/26/14 for acute coronary syndrome-PCI completed 05/28/14 Non-ST elevation (NSTEMI) myocardial infarction (Chronic) Diastolic dysfunction (Chronic) Other halfway (current) drug therapy (Chronic) Second degree atrioventricular block (Chronic) Presence of cardiac pacemaker (Chronic) Pacemaker implant 05/15/14 H/O: stroke (Chronic) H/O myocardial infarction, greater than 8 weeks (Chronic) Diabetes type 2, uncontrolled (Chronic) Dementia (Chronic) Hospital Course and Treatment Imaging Results: 01/18/18 20:12 Diet: Regular Diet Labs (Last 48 Hours) POC Glucose 145 H 118 H Operations: None Procedures: None Summary of Care Provided: The patient is a 77 year old Male with below past medical history admitted from home with debility secondary herpes zoster, to TCU for rehabilitation, strengthening, prior to discharge home alone. Discharge home with 24 hour caregivers, Home Health Services PT/OT. Patient Problems: Active and Suspected Problems (Last Updated 02/01/18 @ 15:22 by Sandra Moody) Debility (Acute) Herpes zoster (Acute) - Physical Exam Vital Signs Temp Pulse Resp BP Pulse Ox 96.8 F L 66 18 115/79 98 02/01/18 16:00 02/01/18 18:11 02/01/18 16:00 02/01/18 18:11 02/01/18 16:00 Oxygen Delivery Method Room Air Weight: 93.894 kg Body Mass Index (BMI) 27.9 Intake and Output for Last 24 Hours Intake Total 840 / 840 720 / 720 360 / 360 Balance 840 / 840 720 / 720 360 / 360 POC Glucose POC Glucose 118 H Discharge Diet: No Restrictions Discharge Activity: Return to Normal Activity, May Shower, Use Walker Weight Bearing Status: Weight bearing as tolerated Call your doctor if you observe: Fever of 101 or Higher, Inability to urinate, Inability to have a bowel movement, Shortness of breath, Chest pain, Uncontrolled pain Home Medications: Medications to take at Discharge aspirin 81 mg tablet,delayed release 81 mg PO QHS tab 05/16/17 furosemide 20 mg tablet 20 mg PO QDAY PRN 05/16/17 nitroglycerin 0.4 mg sublingual tablet 0.4 mg SUBLINGUAL Q5M PRN 05/16/17 pantoprazole 40 mg tablet,delayed release 40 mg PO QDAY 05/16/17 ranolazine ER 500 mg tablet,extended release,12 hr 500 mg PO BID tab 05/16/17 metformin 500 mg tablet 500 mg PO BIDCM tab 09/12/17 multivitamin tablet 1 tab PO QDAY 09/12/17 vitamin E (dl, acetate) 400 unit capsule 400 unit PO QDAY 09/12/17 Glucerna Shake 120 ml PO TIDCM 01/18/18 Ketoconazole 10 ml TP QODAY 01/18/18 Menthol/Lanolin/Calamine/Znox [Calmoseptine Ointment] 1 applic TOPICAL TID 01/18/18 Metoprolol Tartrate 25 mg PO BID 01/18/18 Polyethylene Glycol 3350 [Miralax] 17 gm PO DAILY 01/18/18 Acetaminophen [Tylenol Extra Strength] 1,000 mg PO Q6H PRN PRN 01/22/18 Atorvastatin Calcium [Lipitor] 40 mg PO QHS 01/22/18 Atorvastatin Calcium [Lipitor] 40 mg PO QHS tablet 02/01/18 Ensure Enlive 120 ml PO 4X/DAY liquid 02/01/18 Gabapentin [Neurontin] 100 mg PO DAILYCM capsule 02/01/18 Hydrocortisone 2.5% Crm [Hytone] 1 applic TOPICAL TID PRN PRN tube 02/01/18 Ketoconazole 10 ml TP Q48H PRN shampoo 02/01/18 Mirtazapine [Remeron] 15 mg PO QHS #30 tablet 02/01/18 Polyethylene Glycol 3350 [Miralax] 17 gm PO MoWeFr@1000 packet 02/01/18 mirtazapine 15 mg tablet 15 mg PO DAILY 02/01/18 traMADol [Ultram] 100 mg PO Q6H PRN PRN #30 tab 02/01/18 traMADol [Ultram] 100 mg PO Q6H PRN PRN #30 tab 02/01/18 Following Prescrptions Were Given to Patient: traMADol [Ultram] 100 mg PO Q6H PRN PRN #30 tab PRN Reason: Severe Pain (6-10/10) traMADol [Ultram] 100 mg PO Q6H PRN PRN #30 tab PRN Reason: Mod-Severe Pain (4-10/10) Mirtazapine [Remeron] 15 mg PO QHS #30 tablet Primary Care Physician: Gaston Yip [Primary Care Provider] - Please follow up with your Primary Care Physician in: 1 week. Please Follow Up With: Dr. Ramakrishna Bennett When: 03/01/18 Disposition: Home with Home Health Minutes spent on discharge:: 35 Patient Condition:: Stable Medical Necessity - Tobacco Use Smoking Status: Never smoker Tobacco Use: Non-smoker Meaningful Use Info Meaningful Use Diagnoses (Choose all that apply): None applicable 02/01/182121 <Electronically signed by Yoan Valenzuela MD> Date Yoan Valenzuela MD Cosigner Signature (if applicable): Date CC: Gaston Yip MD; Yoan Valenzuela MD Signed DISCHARGE INSTRUCTION Observed: 02/01/2018 Status: F Source: KAKE 9:20 PM [facility] REPOSITORY [facility] Medical Records Department [address] [place] [address] Instructions for Home/Discharge Instructions 02/01/182118 MR#: [id number] Acct: [id number] Name: BERT BRAVO Rep #: [id number] : 1940 77 From: Yoan Valenzuela MD PCP: Gaston Yip MD Status: ADM IN - Discharge Diagnoses Current Active Problems: Current Active and Chronic Problems (Last Updated 02/01/18 @ 15:22 by Sandra Moody) Debility (Acute) Herpes zoster (Acute) Diabetes mellitus (Chronic) Coronary artery disease (Chronic) Stroke (Chronic) Alzheimer's disease (Chronic) Depression (Chronic) You will use the following diet at home:: No restrictions, Regular Your food should be the consistency of: Regular Your liquids should be the consistency of: Regular/Thin Discharge Activity: Return to Normal Activity, May Shower, Use Walker Weight Bearing Status: Weight bearing as tolerated Call your doctor if you observe: Fever of 101 or Higher, Inability to urinate, Inability to have a bowel movement, Shortness of breath, Chest pain, Uncontrolled pain Allergies/Adverse Reactions: Allergies citalopram [From Celexa] Adverse Reaction (Intermediate, Verified 02/01/18 15:24) Unknown isosorbide [From Imdur] Adverse Reaction (Verified 02/01/18 15:24) Low blood pressure lisinopril Adverse Reaction (Verified 02/01/18 15:24) Low blood pressure Medications to take at Discharge aspirin 81 mg tablet,delayed release 81 mg PO QHS tab 05/16/17 furosemide 20 mg tablet 20 mg PO QDAY PRN 05/16/17 nitroglycerin 0.4 mg sublingual tablet 0.4 mg SUBLINGUAL Q5M PRN 05/16/17 pantoprazole 40 mg tablet,delayed release 40 mg PO QDAY 05/16/17 ranolazine ER 500 mg tablet,extended release,12 hr 500 mg PO BID tab 05/16/17 metformin 500 mg tablet 500 mg PO BIDCM tab 09/12/17 multivitamin tablet 1 tab PO QDAY 09/12/17 vitamin E (dl, acetate) 400 unit capsule 400 unit PO QDAY 09/12/17 Glucerna Shake 120 ml PO TIDCM 01/18/18 Ketoconazole 10 ml TP QODAY 01/18/18 Menthol/Lanolin/Calamine/Znox [Calmoseptine Ointment] 1 applic TOPICAL TID 01/18/18 Metoprolol Tartrate 25 mg PO BID 01/18/18 Polyethylene Glycol 3350 [Miralax] 17 gm PO DAILY 01/18/18 Acetaminophen [Tylenol Extra Strength] 1,000 mg PO Q6H PRN PRN 01/22/18 Atorvastatin Calcium [Lipitor] 40 mg PO QHS 01/22/18 Atorvastatin Calcium [Lipitor] 40 mg PO QHS tablet 02/01/18 Ensure Enlive 120 ml PO 4X/DAY liquid 02/01/18 Gabapentin [Neurontin] 100 mg PO DAILYCM capsule 02/01/18 Hydrocortisone 2.5% Crm [Hytone] 1 applic TOPICAL TID PRN PRN tube 02/01/18 Ketoconazole 10 ml TP Q48H PRN shampoo 02/01/18 Mirtazapine [Remeron] 15 mg PO QHS #30 tablet 02/01/18 Polyethylene Glycol 3350 [Miralax] 17 gm PO MoWeFr@1000 packet 02/01/18 mirtazapine 15 mg tablet 15 mg PO DAILY 02/01/18 traMADol [Ultram] 100 mg PO Q6H PRN PRN #30 tab 02/01/18 traMADol [Ultram] 100 mg PO Q6H PRN PRN #30 tab 02/01/18 The following prescriptions were given: traMADol [Ultram] 100 mg PO Q6H PRN PRN #30 tab PRN Reason: Severe Pain (6-1010) traMADol [Ultram] 100 mg PO Q6H PRN PRN #30 tab PRN Reason: Mod-Severe Pain (4-12/06) Mirtazapine [Remeron] 15 mg PO QHS #30 tablet Primary Care Physician: Gaston Yip [Primary Care Provider] - Please follow up with your Primary Care Physician in: 1 week. Test Results: Test results from this visit will be discussed in further detail at your follow-up appointment, if applicable. Please Follow Up With: Dr. Ramakrishna Bennett When: 03/01/18 Proposed Discharge Date: 02/05/18 02/01/182119 <Electronically signed by Yoan Valenzuela MD> Date Yoan Valenzuela MD CC: Gaston Yip MD 12 LEAD ELECTROCARDIOGRAM Observed: 02/01/2018 Status: F Source: KAKE 3:17 PM [facility] REPOSITORY [facility] Cardiovascular Services [address] [place] [address] 12 Lead EKG 01/28/18 0006 MR#: [id number] Acct: [id number] Name: BERT BRAVO Rep #: [id number] : 1940 77 From: Sloan Rider MD Attending Dr: Nicolas BARNES,Yoan Hamm Status: ADM IN Ordering Dr: Yoan Valenzuela MD Date: 01/28/18 Location: [facility] Sex: M C Admitted: 01/18/18 Test Reason : CP Blood Pressure : / mmHG Vent. Rate : 071 BPM Atrial Rate : 071 BPM P-R Int : 168 ms QRS Dur : 188 ms QT Int : 470 ms P-R-T Axes : -13 250 048 degrees QTc Int : 510 ms Electronic ventricular pacemaker Confirmed by ADRY BARNES, SLOAN ([id number]), rewrite editor MARSHA RICHARDS ([id number]) on 02/01/2018 3:17:39 PM Referred By: Yoan Valenzuela Confirmed By:SLOAN RIDER MD 02/01/18 1517 Date Sloan Rider MD CC: Gaston Yip MD; Yoan Valenzuela MD Signed BEDSIDE GLUCOSE Collected: 02/01/2018 Status: F Source: JENNIFER 6:39 AM [facility] REPOSITORY TYPE CODE TESTS RESULT OUT OF REFERENCE UNITS RANGE LAB L501.080 70-110 mg/dL High BEDSIDE GLU 118 Result Comment: MANAGEMENT OF PATIENT CARE PER NURSING PROTOCOL Performed By: #### L501.080 #### [facility] Point of Care [address] [place], [place] [id number] BEDSIDE GLUCOSE Collected: 01/31/2018 Status: F Source: JENNIFER 6:38 AM [facility] REPOSITORY TYPE CODE TESTS RESULT OUT OF REFERENCE UNITS RANGE LAB L501.080 70-110 mg/dL High BEDSIDE GLU 145 Result Comment: MANAGEMENT OF PATIENT CARE PER NURSING PROTOCOL Performed By: #### L501.080 #### [facility] Point of Care [address] [place], [place] [id number] BEDSIDE GLUCOSE Collected: 01/30/2018 Status: F Source: JENNIFER 6:40 AM [facility] REPOSITORY TYPE CODE TESTS RESULT OUT OF REFERENCE UNITS RANGE LAB L501.080 70-110 mg/dL High BEDSIDE GLU 171 Result Comment: MANAGEMENT OF PATIENT CARE PER NURSING PROTOCOL Performed By: #### L501.080 #### [facility] Point of Care [address] [place] [address] BEDSIDE GLUCOSE Collected: 01/29/2018 Status: F Source: JENNIFER 6:40 AM [facility] REPOSITORY TYPE CODE TESTS RESULT OUT OF REFERENCE UNITS RANGE LAB L501.080 70-110 mg/dL High BEDSIDE GLU 167 Result Comment: MANAGEMENT OF PATIENT CARE PER NURSING PROTOCOL Performed By: #### L501.080 #### [facility] Point of Care [address] [address] BEDSIDE GLUCOSE Collected: 01/28/2018 Status: F Source: KAKE 7:53 AM [facility] REPOSITORY TYPE CODE TESTS RESULT OUT OF REFERENCE UNITS RANGE LAB L501.080 70-110 mg/dL High BEDSIDE GLU 158 Result Comment: MANAGEMENT OF PATIENT CARE PER NURSING PROTOCOL Performed By: #### L501.080 #### [facility] Point of Care [address] [place] [address] BEDSIDE GLUCOSE Collected: 01/27/2018 Status: F Source: KAKE 7:02 AM [facility] REPOSITORY TYPE CODE TESTS RESULT OUT OF REFERENCE UNITS RANGE LAB L501.080 70-110 mg/dL High BEDSIDE GLU 136 Result Comment: MANAGEMENT OF PATIENT CARE PER NURSING PROTOCOL Performed By: #### L501.080 #### [facility] Point of Care [address] [address] 12 LEAD EKG W/ Observed: 01/26/2018 Status: F Source: KAKE RHYTHM STRIP 9:28 AM [facility] REPOSITORY [facility] Cardiovascular Services [address] [place] [address] 12 Lead EKG with Rhythm Strip 01/22/18 1531 MR#: [id number] Acct: [id number] Name: BERT BRAVO Rep #: [id number] : 1940 77 From: Sloan Rider MD Attending Dr: Nicolas BARNES,Yoan Hmam Status: ADM IN Ordering Dr: Yoan Valenzuela MD Date: 01/22/18 Location: TCU Sex: M C Admitted: 01/18/18 Test Reason : Blood Pressure : / mmHG Vent. Rate : 060 BPM Atrial Rate : 060 BPM P-R Int : 130 ms QRS Dur : 192 ms QT Int : 476 ms P-R-T Axes : 000 257 083 degrees QTc Int : 476 ms Electronic ventricular pacemaker Confirmed by ADRY BARNES, SLOAN ([id number]), rewrite editor HAROLDO VELAZQUEZ ([id number]) on 01/24/2018 4:27:26 PM Referred By: Yoan Nicolas Confirmed By:SLOAN RIDER MD 01/24/181626 Date Sloan Rider MD CC: Gaston Yip MD; Yoan Valenzuela MD Signed 12 LEAD ELECTROCARDIOGRAM Observed: 01/26/2018 Status: F Source: JENN[place] 9:28 AM [facility] Cardiovascular Services [address] [place] [address] 12 Lead EKG 01/22/181625 MR#: [id number] Acct: [id number] Name: LAWRENCEBERT Weber Rep #: [id number] : 1940 77 From: Sloan Rider MD Attending Dr: Status: DEP ER Ordering Dr: Paris Webb MD Date: 01/22/18 Location: ED Sex: M C Admitted: Test Reason : CP Blood Pressure : / mmHG Vent. Rate : 062 BPM Atrial Rate : 062 BPM P-R Int : 186 ms QRS Dur : 182 ms QT Int : 474 ms P-R-T Axes : 095 261 053 degrees QTc Int : 481 ms Atrial-sensed ventricular-paced rhythm Abnormal ECG Confirmed by ADRY BARNES, SLOAN ([id number]), rewrite editor HAROLDO VELAZQUEZ ([id number]) on 01/24/2018 4:27:53 PM Referred By: Yoan Valenzuela Confirmed By:SLOAN RIDER MD 01/24/181626 Date Sloan Rider MD CC: Paris Webb MD; Gaston Yip MD Signed 12 LEAD ELECTROCARDIOGRAM Observed: 01/26/2018 Status: F Source: [place] 9:28 AM [facility] Cardiovascular Services [address] [place] [address] 12 Lead EKG 01/22/181929 MR#: [id number] Acct: [id number] Name: BERT BRAVO F Rep #: [id number] : 1940 77 From: Sloan Rider MD Attending Dr: Status: DEP ER Ordering Dr: Paris Webb MD Date: 01/22/18 Location: ED Sex: M C Admitted: Test Reason : REPEAT Blood Pressure : / mmHG Vent. Rate : 060 BPM Atrial Rate : 060 BPM P-R Int : 138 ms QRS Dur : 186 ms QT Int : 478 ms P-R-T Axes : 000 252 069 degrees QTc Int : 478 ms Atrial-sensed ventricular-paced rhythm Abnormal ECG Confirmed by ADRY BARNES, SLOAN ([id number]), rewrite editor HAROLDO VELAZQUEZ ([id number]) on 01/24/2018 4:28:13 PM Referred By: Yoan Valenzuela Confirmed By:SLOAN RIDER MD 01/24/18 1628 Date Sloan Rider MD CC: Paris Webb MD; Gaston Yip MD Signed BEDSIDE GLUCOSE Collected: 01/26/2018 Status: F Source: [place] 6:52 AM [facility] REPOSITORY TYPE CODE TESTS RESULT OUT OF REFERENCE UNITS RANGE LAB L501.080 70-110 mg/dL High BEDSIDE GLU 152 Result Comment: MANAGEMENT OF PATIENT CARE PER NURSING PROTOCOL Performed By: #### L501.080 #### [facility] Laboratory Point of Care [address] [place] [address] CBC W/DIFF, AUTOMATED Collected: 01/26/2018 Status: F Source: [place]ENN[place] 5:15 AM [facility] REPOSITORY TYPE CODE TESTS RESULT OUT OF RANGE REFERENCE UNITS LAB L100.1000 4.4-11.0 K/mm3 Normal WBC 7.3 LAB L100.1200 4.6-6.2 M/mm3 Low RBC 4.49 LAB L100.1300 13.0-16.5 g/dl Normal HGB 13.6 LAB L100.1400 40-54 % Normal HCT 41.1 LAB L100.1500 80-94 fL Normal MCV 91.5 LAB L100.1600 27.0-32.0 pg Normal MCH 30.3 LAB L100.1700 32-36 g/gl Normal MCHC 33.1 LAB L100.1810 11.6-14.6 % Normal RDW CV 13.2 LAB L100.1820 35.1-43.9 fl High RDW SD 44.1 LAB L100.1900 150-450 K/mm3 Normal PLT 171 LAB L100.2000 6.2-12.0 fl Normal MPV 9.2 LAB L100.2100 47-70 % Normal NEUT% 55.1 LAB L100.2200 19-41 % Normal LY% 31.0 LAB L100.2300 0-10 % High MONO% 10.8 LAB L100.2400 0-5 % Normal EO% 2.7 LAB L100.2500 0-1 % Normal BASO% 0.3 LAB L100.2550 0.0-0.9 % Normal IM GRAN % 0.100 Result Comment: IG% - Immature Granulocytes (promyelocytes, myelocytes and metamyelocytes) > 1% indicates that a LEFT SHIFT is Present. LAB L100.2620 2.0-7.7 X10 3/uL Normal Absolute Neut 4.0 LAB L100.2720 0.83-4.51 X10 3/ul Normal Absolute Lymph 2.27 Performed By: #### L100.0100 #### [facility] [address] [place] [address], [id number] BEDSIDE GLUCOSE Collected: 01/25/2018 Status: F Source: [place] 6:39 AM [facility] REPOSITORY TYPE CODE TESTS RESULT OUT OF REFERENCE UNITS RANGE LAB L501.080 70-110 mg/dL High BEDSIDE GLU 115 Result Comment: MANAGEMENT OF PATIENT CARE PER NURSING PROTOCOL Performed By: #### L501.080 #### [facility] Point of Care [address] [place], [place] [id number] BEDSIDE GLUCOSE Collected: 01/24/2018 Status: F Source: [place] 7:33 AM [facility] REPOSITORY TYPE CODE TESTS RESULT OUT OF RANGE REFERENCE UNITS LAB L501.080 70-110 mg/dL Normal BEDSIDE GLU 106 Result Comment: MANAGEMENT OF PATIENT CARE PER NURSING PROTOCOL Performed By: #### L501.080 #### [facility] Point of Care [address] [facility] [place] [address] BEDSIDE GLUCOSE Collected: 01/23/2018 Status: F Source: [place] 7:48 AM [facility] REPOSITORY TYPE CODE TESTS RESULT OUT OF REFERENCE UNITS RANGE LAB L501.080 70-110 mg/dL High BEDSIDE GLU 115 Result Comment: MANAGEMENT OF PATIENT CARE PER NURSING PROTOCOL Performed By: #### L501.080 #### [facility] Point of Care [address] [place] [address] EMERGENCY DEPARTMENT Observed: 01/23/2018 Status: F Source: [place] SUMMARY 12:27 AM [facility] REPOSITORY [facility] Medical Records Department [address] [place] [address] Emergency Department Summary 01/22/182011 MR#: [id number] Acct: [id number] Name: BERT BRAVO Rep #: [id number] : 1940 77 From: Paris Webb MD PCP: Gaston Yip md Status: DEP ER - ER Visit Summary Date of Service: 01/22/18 Chief Complaint: Chest pain History of Present Illness: The patient is a 77 M sent down from TCU with chest pain. Per the nurse in TCU patient had angioplasty at [facility] on the . Patient is currently in TCU for rehab and shingles. Patient does report pain and rubs his lower chest. He denies shortness of breath. Past history significant for dementia, CVA, coronary disease, OR, diabetes, hypertension, high cholesterol, A. fib, Alzheimer's, shingles, ischemic cardia myopathy. He does have cardiac stents. After further family arrives it is noted the patient had angioplasty on the with no stent placement. He was on Plavix for 2 weeks only due to a small head bleed at the same time. Physical Examination: Vital signs unremarkable. Patient is lying in a hospital bed. He is in no acute distress. He is sleepy but will awaken to answer questions. He does fall back to sleep without stimulation. Head neck examination is grossly unremarkable. Heart is regular rate and rhythm. On lung sounds are clear. Abdomen is soft with no focal tenderness. He does have rash consistent with shingles on the left lower chest and upper abdomen that wraps to the left flank. Test Results: EKG is paced at 62 with no acute changes. CBC is normal. Chemistry studies show a BUN of 20 and a glucose of 130. Troponin is less than 0.015. Portable chest x-ray shows no acute process. Emergency Department Course and Treatment: On repeat examination patient is resting comfortably. He denies chest pain or shortness of breath. I discussed the case with daughter at bedside who is power of floor scrubber. She states that the patient had been taken back to [facility] at one point due to prolonged chest pain. It is felt the patient is having frequent chest pain secondary to his shingles. At this time we chose to do a repeat troponin and EKG at 3 hours. Repeat EKG and troponin are both unchanged. Patient at this time is discharged back to the TCU. He denies any pain at this time. Treatment Plan: [] Disposition: Discharge to TCU Impression: 1. Chest pain 2. Shingles This note was generated with [employer] dictation software. It may contain incorrect words, spelling, and punctuation that were not noted in review of the chart prior to signing ED Disposition - Plan for ED Patient: Disposition: Home or Assisted Living Chief Complaint: Chest Pain Instructions: ED Chest Pain NonCardiac Referrals: Gaston Yip [Primary Care Provider] - What to do if you have Problems For any increased pain, shortness of breath, bleeding, nausea or vomiting, chest pain, or any unexpected problems, contact your Primary Care Provider. Call [facility] ([phone]) or report to the closest Emergency Room. Call 911 if necessary. 01/23/18 0027 <Electronically signed by Paris Webb MD> Date Paris Garciaignlinda Signature (If Indicated): Date CC: md Gaston Yip DISCHARGE INSTRUCTION Observed: 01/22/2018 Status: F Source: [place] 8:13 PM [facility] REPOSITORY [facility] Medical Records Department [address] [place] [address] Discharge Instruction 01/22/182011 MR#: [id number] Acct: [id number] Name: BERT BRAVO Rep #: [id number] : 1940 77 From: Paris Webb MD PCP: Gaston Yip md Status: REG ER ED Disposition - Plan for ED Patient: Disposition: Home or Assisted Living Chief Complaint: Chest Pain Instructions: ED Chest Pain NonCardiac Referrals: Gaston Yip [Primary Care Provider] - What to do if you have Problems For any increased pain, shortness of breath, bleeding, nausea or vomiting, chest pain, or any unexpected problems, contact your Primary Care Provider. Call [facility] ([phone]) or report to the closest Emergency Room. Call 911 if necessary. 01/22/182012 <Electronically signed by Paris Webb MD> Date Paris Webb MD Cosigner Signature (If Indicated): Date CC: md Gaston Yip TROPONIN-I Collected: 01/22/2018 Status: F Source: [place] 7:25 PM [facility] REPOSITORY TYPE CODE TESTS RESULT OUT OF RANGE REFERENCE UNITS LAB L501.4010 <0.045 ng/mL Normal < 0.015 TROPONIN-I Result Comment: TROPONIN-I EXPECTED VALUES <0.045 Negative 0.045 - 0.590 Consistent with Cardiac Damage > OR = 0.600 Critical Value Not every elevated troponin is indicative of OR. These values should be used with clinical judgement in examining the patient's clinical picture for diagnosis. To establish a diagnosis of OR versus myocardial injury, there must be a demonstrated rise and/or fall in the troponin values, in addition to ischemic symptoms, EKG changes, new regional wall motion abnormality, and/or angiographical evidence. PLEASE NOTE: REFERENCE RANGES EDITED 17 Performed By: #### L501.4010 #### [facility] [address] [place], [address] CHEST 1 VIEW Observed: 01/22/2018 Status: F Source: [place] (PORTABLE) 4:47 PM [facility] REPOSITORY [facility] Imaging Services [address] [place] [address] Chest 1 View (Portable) MR#: [id number] Acct: [id number] Name: BERT BRAVO Rep #: [id number] : 1940 M 77 From: Angella Guan MD PCP: Gaston Yip md Status: PRE ER Study: Chest 1 View (Portable) Date of Exam: 01/22/18 Exam# [id number] Ordering Dr: Paris Webb MD STUDY: X-RAY CHEST REASON FOR EXAM: Male, 77 years old. Chest pain TECHNIQUE: Single frontal view of the chest. COMPARISON: November 23, 2015 FINDINGS: There is no new focal consolidation. There is a pacer device in place. Normal size heart. Normal mediastinum and nina. Normal visualized pulmonary arteries. Normal visualized aortic arch and descending thoracic aorta. There are diffuse degenerative changes of the visualized thoracic spine. Normal visualized ribs, clavicles, and shoulders. There is no demonstrated abnormality of the visualized soft tissue structures of the upper abdomen. RAD/Chest 1 View (Portable) IMPRESSION: No acute cardiopulmonary process. Electronically Signed: Angella Guan MD at 17:35 EST Tel , Service support , CC: md Gaston Yip; Paris Webb MD Candy Rolling Machine Operator: Signed CBC W/DIFF, AUTOMATED Collected: 01/22/2018 Status: F Source: [place] 4:30 PM [facility] REPOSITORY TYPE CODE TESTS RESULT OUT OF RANGE REFERENCE UNITS LAB L100.1000 4.4-11.0 K/mm3 Normal WBC 7.2 LAB L100.1200 4.6-6.2 M/mm3 Normal RBC 4.81 LAB L100.1300 13.0-16.5 g/dl Normal HGB 14.6 LAB L100.1400 40-54 % Normal HCT 43.8 LAB L100.1500 80-94 fL Normal MCV 91.1 LAB L100.1600 27.0-32.0 pg Normal MCH 30.4 LAB L100.1700 32-36 g/gl Normal MCHC 33.3 LAB L100.1810 11.6-14.6 % Normal RDW CV 13.4 LAB L100.1820 35.1-43.9 fl High RDW SD 44.2 LAB L100.1900 150-450 K/mm3 Normal PLT 156 LAB L100.2000 6.2-12.0 fl Normal MPV 9.3 LAB L100.2100 47-70 % Normal NEUT% 50.0 LAB L100.2200 19-41 % Normal LY% 38.1 LAB L100.2300 0-10 % Normal MONO% 9.0 LAB L100.2400 0-5 % Normal EO% 2.1 LAB L100.2500 0-1 % Normal BASO% 0.7 LAB L100.2550 0.0-0.9 % Normal IM GRAN % 0.100 Result Comment: IG% - Immature Granulocytes (promyelocytes, myelocytes and metamyelocytes) > 1% indicates that a LEFT SHIFT is Present. LAB L100.2620 2.0-7.7 X10 3/uL Normal Absolute Neut 3.6 LAB L100.2720 0.83-4.51 X10 3/ul Normal Absolute Lymph 2.74 Performed By: #### L100.0100 #### [facility] [address] [place], [place], [id number] BASIC METABOLIC Collected: 01/22/2018 Status: F Source: [place]ER PROFILE (BMP) 4:30 PM [facility] REPOSITORY TYPE CODE TESTS RESULT OUT OF RANGE REFERENCE UNITS LAB L501.0100 74-106 mg/dL High GLU 130 Result Comment: Fasting Glucose result greater than or equal to 126 mg/dL suggests DIABETES MELLITUS per A.D.A. criteria. Please note revised GLUCOSE reference range effective 2017. LAB L501.1000 7-18 mg/dL High BUN 20 LAB L501.1100 0.70-1.30 mg/dL Normal CREAT,SERUM 1.03 Result Comment: The validity of the calculated GFR AND GFRAA in patients over 70 years has not been determined. Clinical correlation is essential. LAB L501.1110 >60 mL/min Normal EST GFR 74 Result Comment: Non- GFR Calc LAB L501.1115 >60 mL/min Normal EST GFR - AA 89 Result Comment: GFR Calc LAB L501.1255 ml/min Normal Estimated CRCL 67.61 LAB L501.1300 10-20 RATIO Normal BUN/CRE 19.4 LAB L501.2200 8.5-10 mg/dL Normal .1 CA 8.8 LAB L501.5300 136-14 mmol/L Normal 5 NA 136 LAB L501.5600 3.5-5. mmol/L Normal 1 K 4.2 LAB L501.5900 98-107 mmol/L Normal CL 104 LAB L501.6100 21.0-3 mmol/L Normal 2.0 CO2 25.0 LAB L501.6200 5-15 Normal GAP 7 Performed By: #### L500.2500, L501.4010 #### [facility] [address] [place], [address] TROPONIN-I Collected: 01/22/2018 Status: F Source: [place] 4:30 PM [facility] REPOSITORY TYPE CODE TESTS RESULT OUT OF RANGE REFERENCE UNITS LAB L501.4010 <0.045 ng/mL Normal < 0.015 TROPONIN-I Result Comment: TROPONIN-I EXPECTED VALUES <0.045 Negative 0.045 - 0.590 Consistent with Cardiac Damage > OR = 0.600 Critical Value Not every elevated troponin is indicative of OR. These values should be used with clinical judgement in examining the patient's clinical picture for diagnosis. To establish a diagnosis of OR versus myocardial injury, there must be a demonstrated rise and/or fall in the troponin values, in addition to ischemic symptoms, EKG changes, new regional wall motion abnormality, and/or angiographical evidence. PLEASE NOTE: REFERENCE RANGES EDITED 17 Performed By: #### L500.2500, L501.4010 #### [facility] [address] [place], [address] BEDSIDE GLUCOSE Collected: 01/22/2018 Status: F Source: [place] 6:45 AM [facility] REPOSITORY TYPE CODE TESTS RESULT OUT OF REFERENCE UNITS RANGE LAB L501.080 70-110 mg/dL High BEDSIDE GLU 132 Result Comment: MANAGEMENT OF PATIENT CARE PER NURSING PROTOCOL Performed By: #### L501.080 #### [facility] Point of Care [address] [place] [address] BEDSIDE GLUCOSE Collected: 01/21/2018 Status: F Source: [place] 6:42 AM [facility] REPOSITORY TYPE CODE TESTS RESULT OUT OF REFERENCE UNITS RANGE LAB L501.080 70-110 mg/dL High BEDSIDE GLU 143 Result Comment: MANAGEMENT OF PATIENT CARE PER NURSING PROTOCOL Performed By: #### L501.080 #### [facility] Point of Care [address] [place] [address] BEDSIDE GLUCOSE Collected: 01/20/2018 Status: F Source: [place] 6:56 AM [facility] REPOSITORY TYPE CODE TESTS RESULT OUT OF REFERENCE UNITS RANGE LAB L501.080 70-110 mg/dL High BEDSIDE GLU 121 Result Comment: MANAGEMENT OF PATIENT CARE PER NURSING PROTOCOL Performed By: #### L501.080 #### [facility] Point of Care [address] [place] [address] HISTORY AND PHYSICAL Observed: 01/19/2018 Status: F Source: [place] EXAM 6:53 PM [facility] REPOSITORY [facility] Medical Records Department [address] [place] [address] History and Physical 01/18/18 2306 MR#: [id number] Acct: [id number] Name: BERT BRAVO Rep #: [id number] : 1940 77 From: Yoan Valenzuela MD PCP: Gaston Yip md Status: ADM IN Y Location: [place] [address] Problem List (1) Debility Status: Acute (2) Herpes zoster Status: Acute (3) Diabetes mellitus Status: Chronic (4) Coronary artery disease Status: Chronic (5) Stroke Status: Chronic (6) Alzheimer's disease Status: Chronic (7) Depression Status: Chronic (8) Atrial fibrillation Status: Chronic Qualifiers: (9) Hypertension Status: Chronic Qualifiers: (10) Hyperlipidemia Status: Chronic Qualifiers: (11) Diastolic dysfunction Status: Chronic History of Present Illness Date of Admission: 01/18/18 Chief Complaint: Here for rehabilitation, strengthening, prior to discharge home alone. The patient is a 77 year old Male with below past medical history admitted from home with debility, secondary to Herpes Zoster, to TCU, here for rehabilitation, strengthening, prior to discharge home alone. Past Medical History Past Medical History (Chronic Problems): Chronic Problems (Last Updated 12/20/17 @ 14:41 by Tasha Leigh) Diabetes mellitus (Chronic) Coronary artery disease (Chronic) Stroke (Chronic) Alzheimer's disease (Chronic) Depression (Chronic) Atrial fibrillation (Chronic) Hypertension (Chronic) Atherosclerotic heart disease of [place] coronary artery without angina pectoris (Chronic) S/P RCA, LCX, and OM PTCA/SARKIS in April and May of 2014; Stroke determined by clinical assessment (Chronic) Hyperlipidemia (Chronic) Presence of other cardiac implants and grafts (Chronic) Staged PCI done 05/15/14 to RCA AND then readmitted 05/26/14 for acute coronary syndrome-PCI completed 05/28/14 Non-ST elevation (NSTEMI) myocardial infarction (Chronic) Diastolic dysfunction (Chronic) Other halfway (current) drug therapy (Chronic) Second degree atrioventricular block (Chronic) Presence of cardiac pacemaker (Chronic) Pacemaker implant 05/15/14 H/O: stroke (Chronic) H/O myocardial infarction, greater than 8 weeks (Chronic) Diabetes type 2, uncontrolled (Chronic) Dementia (Chronic) Medical History: Medical History (Last Updated 12/20/17 @ 14:41 by Tasha Leigh) Atrial fibrillation (Chronic) I48.91 Hypertension (Chronic) I10 Atherosclerotic heart disease of [place] coronary artery without angina pectoris (Chronic) I25.10 S/P RCA, LCX, and OM PTCA/SARKIS in April and May of 2014; Hyperlipidemia (Chronic) E78.5 Non-ST elevation (NSTEMI) myocardial infarction (Chronic) I21.4 Diastolic dysfunction (Chronic) I51.9 Second degree atrioventricular block (Chronic) I44.1 H/O: stroke (Chronic) Z86.73 Diabetes type 2, uncontrolled (Chronic) E11.65 Dementia (Chronic) F03.90 Depression F32.9 Allergies citalopram [From Celexa] Adverse Reaction (Intermediate, Verified 12/20/17 14:38) Unknown isosorbide [From Imdur] Adverse Reaction (Verified 01/18/18 20:01) Low blood pressure lisinopril Adverse Reaction (Verified 01/18/18 20:01) Low blood pressure Home Medications: Ambulatory Orders Medication Instructions Recorded aspirin 81 mg tablet,delayed 81 mg PO QHS tab 05/16/17 Surgical History: Surgical History (Last Reviewed 12/20/17 @ 14:41 by Tasha Leigh) Presence of other cardiac implants and grafts (Chronic) Z95.818 Staged PCI done 05/15/14 to RCA AND then readmitted 05/26/14 for acute coronary syndrome-PCI completed 05/28/14 Presence of cardiac pacemaker (Chronic) Z95.0 Pacemaker implant 05/15/14 Surgical History: coronary bypass surgery, pacemaker implantation Psychiatric History: Depression Lives: Alone Smoking Status: Never smoker Tobacco Use: Non-smoker Alcohol: None Drugs: None - *Family History Maternal Family History: Family History (Last Reviewed 12/20/17 @ 14:41 by Tasha Leigh) Other CVA (cerebral vascular accident) History Items: No pertinent history Paternal Family History: Family History (Last Reviewed 12/20/17 @ 14:41 by Tasha Leigh) Other CVA (cerebral vascular accident) History Items: No pertinent history Review of Systems Constitutional: Denies: Chills, Fever, Weight Change HEENT: Denies: Head Aches, Sinus Congestion, Sinus Drainage Cardiovascular: Denies: Chest Pain, Palpitations Respiratory: Denies: Cough, Shortness of breath at rest, Sputum production Gastrointestinal: Denies: Abdominal Pain, Nausea, Vomiting Genitourinary: Denies: Dysuria Musculoskeletal: Denies: Joint Pain, Joint Tenderness Skin: Denies: Rash, Wounds Neurological: Denies: Numbness, Tingling, Focal weakness Psychiatric: Denies: Anxiety, Depression, Homicidal Ideations, Suicidal Ideations Hematologic/ Lymphatic: Denies: Easy Bruising, Easy Bleeding VTE Information - Inpt Only VTE Present on Admission: No VTE Mechan Device Prophylaxis: Knee High JOHNY Hose VTE Pharm Prophylaxis ordered?: Yes Patient Problems: Active and Suspected Problems (Last Updated 12/20/17 @ 14:41 by Tasha Leigh) Debility (Acute) Herpes zoster (Acute) - Physical Exam General: Alert, Oriented x3, Cooperative HEENT: Atraumatic, PERRLA, EOMI, Normocephalic Neck: Supple, No JVD, Negative Carotid Bruits Lungs: Clear to auscultation, Normal air movement Cardiovascular: Regular rate, No murmurs Abdomen: Bowel Sounds Present, Soft, Non Tender Extremities: No edema, Capillary Refill Less than 3 Seconds Skin: No rashes, No breakdown, Rash Present - Shingles rash left upper abdomen, left lateral flank, left thoracolumbar back. Musculoskeletal: No Tenderness to Palpation of Joints or Extremities Neurological: Cranial nerves II-XII grossly intact Psych/Mental Status: Normal Affect, Appropriate Vital Signs Pulse BP 64 107/77 01/18/18 22:50 01/18/18 22:50 Weight: 98.656 kg Body Mass Index (BMI) 27.9 Assessment/Plan All Active Problems (Last Updated 12/20/17 @ 14:41 by Tasha Leigh) Debility (Acute) Herpes zoster (Acute) Ischemic cardiomyopathy (Acute) Pressure ulcer of right buttock, stage 1 (Acute) Pressure ulcer of left buttock, stage 1 (Acute) 77 year old male with below past medical history admitted from home with debility secondary herpes zoster, to TCU for rehabilitation, strengthening, prior to discharge home alone. * Debility - PT/OT. * Aphasia - ST. * Pain - Tylenol 1000MG Q6H PRN mild pain, Tramadol 50MG Q6H PRN moderate pain. * Bowel - Miralax 17GM daily, Senna/colace 1 tablet BID, Dulcolax 10MG daily PRN. * Pneumonia vaccination - Administer Prevnar 13 and/or Pneumovax 23 as necessary. * DVT prophylaxis - Lovenox 30MG SC daily. * Herpes Zoster - Acyclovir 400MG TID x 7 days, Gabapentin 100MG TID for neuropathic pain. * Coronary Artery Disease - Metoprolol 25MG BID, Ranexa 500MG BID, Plavix 75MG daily, Aspirin 81MG QHS, NTG 0.4MG SL Q5M PRN. * Hyperlipidemia - Atorvastatin 40MG QHS. * Chronic diastolic heart failure - Metoprolol 25MG BID, Lasix 20MG daily PRN. * Nutrition - Glucerna 120ML TID, MVI daily. * Pruritus - Hydrocortisone 2.5% TID PRN. * Tinea corporis - Ketoconazole topical Q48H. * Skin irritation - Calmoseptine TID buttocks. * Diabetes Mellitus II - Metformin 500MG BID. * GERD - Pantoprazole 40MG daily. * Depression - Venlafaxine 18.25MG daily, resident doing well with chronic halfway use, GDR clinically contraindicated. * Vitamin E deficiency - Vitamin E 400IU daily. 01/19/18 4583 <Electronically signed by Yoan Valenzuela MD> Date Yoan Valenzuela MD Cosigner Signature: Date (if applicable) CC: md Gaston Yip; Yoan Valenzuela MD Signed BEDSIDE GLUCOSE Collected: 01/19/2018 Status: F Source: [place] 4:50 PM [facility] REPOSITORY TYPE CODE TESTS RESULT OUT OF REFERENCE UNITS RANGE LAB L501.080 70-110 mg/dL High BEDSIDE GLU 112 Result Comment: MANAGEMENT OF PATIENT CARE PER NURSING PROTOCOL Performed By: #### L501.080 #### [facility] Laboratory Point of Care [address] [place], [place] [address]saharaTara [place], [place] [address] CT ANGIOGRAPHY CHEST Observed: 01/15/2018 Status: F Source: [place] W/CONTRAST 5:58 PM [facility] REPOSITORY ORIGINAL CT ANGIOGRAPHY CHEST W/CONTRAST: Multiplanar sagittal, axial, coronal, and 3D reconstructions were reviewed on a separate workstation. This exam was performed according to our departmental dose optimization program, and includes the fo llowing measures where applicable: automated exposure control, adjustment of the mAs and/or kVp according to patient size and/or exam, and an iterative reconstruction algorithm. CLINICAL INDICATION: R/O PE. Angioplasty on 01/12/2018 with chest pain today. Congestive heart failure. COMPARISON: CT angiography of the chest, 12/28/2017 FINDINGS: Mild respiratory motion artifact compromises evaluation of the pulmonary arterial tree in the lower lobes of the lungs. Provided this limitation, there is no abrupt vessel cut off or intralumi nal filling defect to indicate pulmonary embolism area of the main pulmonary artery is nondilated, and there is no CT evidence for RIGHT ventricular strain. Metallic coronary stents and coronary arteriosclerosis is visualized. There is a RIGHT anterior chest wall ICD with leads projecting in the RIGHT atrium and RIGHT ventricle. No pericardial effusion. Ath erosclerotic calcification is seen at the aortic arch, but there is no thoracic aortic aneurysm. The central airways are clear, and there is no esophageal dilation. A small hiatal hernia is present. There is no thoracic lymphadenopathy. Calcified RIGHT lower paratracheal and RIGHT hilar lymph nodes favoring prior granulomatous infection. Reticular densities in the lower lobes the lungs favor dependent atelectasis or scarring. There is no focal consolidation, mass, or suspicious pulmonary nodule. No pleural effusion or pneumothorax. No a cute osseous abnormality or destructive bone lesion. Moderate multilevel degenerative endplate changes are seen in the mid and lower thoracic spine. Images acquired through the upper abdomen are notable for punctate granulomas in the RIGHT hepatic lobe. IMPRESSION: No pulmonary embolism to the segmental level or acute intrathoracic abnormality. Findings compatible with prior granulomatous infection. I have personally reviewed the images of this examination and agree with the resident's findings and interpretation. Interpreted By: Akash Waldrop MD Preliminary Report By: Reji Brandon MD Electronically Signed By: Akash Waldrop MD Dictated Date: 01/15/2018 6:26:40 PM Prelim Date: 01/15/2018 6:32:01 PM Sign Date: 01/15/2018 6:52:09 PM TROPI Collected: 01/15/2018 Status: F Source: [place] Re.Mu 6:46 AM [facility] REPOSITORY TYPE CODE TESTS RESULT OUT OF REFERENCE UNITS RANGE LAB TROPI(LOINC 0.000-0.040 ng/mL ) High Troponin I 0.044 Result Comment: Troponin I reference ranges (11/04/13): 0.00-0.040 ng/mL Negative and non-diagnostic. >0.040 ng/mL Consistent with cardiac damage, increased clinical risk and possibility of myocardial infarction. Serial measurements, a rise & fall in test results, clinical history, appropriate symptoms and/or ECG changes may help assess possibility of OR. *Other non-acute coronary syndrome conditions such as CHF, myocarditis, pulmonary emboli, sepsis and cardiac surgery could result in myocardial damage and increased troponin levels. Performed By: #### TROPI #### [address] [address] BMP Collected: 01/15/2018 Status: F Source: [facility] 4:06 AM [facility] REPOSITORY TYPE CODE TESTS RESULT OUT OF REFERENCE UNITS RANGE LAB GLU(LOINC) 82-115 mg/dL Glucose High Level 251 LAB NA(LOINC) 136-145 mEq/L Sodium Level 140 LAB K(LOINC) 3.5-5.0 mEq/L Potassium Level 4.5 LAB CL(LOINC) 98-110 mEq/L Chloride 107 LAB CO2(LOINC) 22-32 mEq/L CO2 24 LAB EBAL(LOINC 4.0-15.0 mEq/L ) Electrolyte Balance 9.0 LAB BUN(LOINC) 8.0-22.0 mg/dL BUN 18.0 LAB CRE(LOINC) 0.60-1.40 mg/dL Creatinine Lvl (s) 0.89 LAB BC(LOINC) 10.0-22.0 ratio BUN/Creatinine 20.2 Ratio LAB CA(LOINC) 8.4-10.1 mg/dL Low Calcium Lvl 8.0 Performed By: #### BMP, GFR, CBC, ADIFF, ANEU, TROPI #### [address] [address] .GFR Collected: 01/15/2018 Status: F Source: [facility] 4:06 AM [facility] REPOSITORY TYPE CODE TESTS RESULT OUT OF REFERENCE UNITS RANGE LAB GFRAA(LOINC ml/min/1.73 ) sqm GFR >60 Finnish Result Comment: GFR Population mean for , Non- Americans Ages 20-29 = 116 mL/min/1.73 sq.m. Ages 30-39 = 107 mL/min/1.73 sq.m. Ages 40-49 = 99 mL/min/1.73 sq.m. Ages 50-59 = 93 mL/min/1.73 sq.m. Ages 60-69 = 85 mL/min/1.73 sq.m. Ages 70+ = 75 mL/min/1.73 sq.m. Chronic Kidney Disease: Less than 60 mL/min/1.73 square meters End Stage Renal Disease: Less than 15 mL/min/1.73 square meters LAB GFRNO(LOINC) ml/min/1.73sqm GFR Non- >60 Result Comment: GFR Population mean for , Non- Americans Ages 20-29 = 116 mL/min/1.73 sq.m. Ages 30-39 = 107 mL/min/1.73 sq.m. Ages 40-49 = 99 mL/min/1.73 sq.m. Ages 50-59 = 93 mL/min/1.73 sq.m. Ages 60-69 = 85 mL/min/1.73 sq.m. Ages 70+ = 75 mL/min/1.73 sq.m. Chronic Kidney Disease: Less than 60 mL/min/1.73 square meters End Stage Renal Disease: Less than 15 mL/min/1.73 square meters Performed By: #### BMP, GFR, CBC, ADIFF, ANEU, TROPI #### [address] [address] CBC Collected: 01/15/2018 Status: F Source: [facility] 4:06 AM [facility] REPOSITORY TYPE CODE TESTS RESULT OUT OF REFERENCE UNITS RANGE LAB WBC(LOINC) 4.50-10.80 10 3/mcL WBC 6.60 LAB RBCCT(LOINC 4.50-6.00 10 6/mcL ) Low RBC 4.37 LAB HGB(LOINC) 13.0-17.5 G/dL Hgb 13.7 LAB HCT(LOINC) 40.0-52.0 % Hct 40.7 LAB MCV(LOINC) 81.0-100.0 fL MCV 93.2 LAB MCH(LOINC) 27.0-33.0 pg MCH 31.4 LAB MCHC(LOINC) 32.0-36.0 G/dL MCHC 33.7 LAB RDW(LOINC) 11.5-15.5 % RDW 13.7 LAB PLT(LOINC) 150-450 10 3/mcL Platelet 172 LAB MPV(LOINC) 6.4-10.5 fL MPV 7.6 Performed By: #### BMP, GFR, CBC, ADIFF, ANEU, TROPI #### [place] [address] .AUTO DIFF Collected: 01/15/2018 Status: F Source: [facility] 4:06 AM [facility] REPOSITORY TYPE CODE TESTS RESULT OUT OF REFERENCE UNITS RANGE LAB TAMARA(LOINC) 50.0-75.0 % High Neutrophil % 82.9 LAB LYM(LOINC) 20.0-40.0 % Low Lymphocyte % 10.3 LAB MON(LOINC) 2.0-13.0 % Monocyte % 6.4 LAB EO(LOINC) 0.0-6.0 % Eosinophil % 0.3 LAB BAS(LOINC) 0.0-2.5 % Basophil % 0.1 LAB ABLYM(LOIN 0.90-4.32 10 3/mcL C) Low Lymphocyte, 0.70 Absolute LAB LUIS(LOINC 0.09-1.40 10 3/mcL ) Monocyte, 0.40 Absolute LAB AEOS(LOINC 0.00-0.65 10 3/mcL ) Eosinophil, 0.00 Absolute LAB ABAS(LOINC 0.00-0.27 10 3/mcL ) Basophil, 0.00 Absolute Performed By: #### BMP, GFR, CBC, ADIFF, ANEU, TROPI #### [place] [address] .NEUABS Collected: 01/15/2018 Status: F Source: [facility] 4:06 AM [facility] REPOSITORY TYPE CODE TESTS RESULT OUT OF REFERENCE UNITS RANGE LAB ANEU(LOINC) 2.25-8.10 10 3/mcL Neutrophil, 5.50 Absolute Performed By: #### BMP, GFR, CBC, ADIFF, ANEU, TROPI #### [place] [address] TROPI Collected: 01/15/2018 Status: F Source: [facility] 4:06 AM [facility] REPOSITORY TYPE CODE TESTS RESULT OUT OF REFERENCE UNITS RANGE LAB TROPI(LOINC 0.000-0.040 ng/mL ) Troponin I 0.040 Result Comment: Troponin I reference ranges (11/04/13): 0.00-0.040 ng/mL Negative and non-diagnostic. >0.040 ng/mL Consistent with cardiac damage, increased clinical risk and possibility of myocardial infarction. Serial measurements, a rise & fall in test results, clinical history, appropriate symptoms and/or ECG changes may help assess possibility of OR. *Other non-acute coronary syndrome conditions such as CHF, myocarditis, pulmonary emboli, sepsis and cardiac surgery could result in myocardial damage and increased troponin levels. Performed By: #### BMP, GFR, CBC, ADIFF, ANEU, TROPI #### [address] [address] CBC Collected: 01/14/2018 Status: F Source: [facility] 11:59 PM [facility] REPOSITORY TYPE CODE TESTS RESULT OUT OF REFERENCE UNITS RANGE LAB WBC(LOINC) 4.50-10.80 10 3/mcL WBC 5.00 LAB RBCCT(LOINC 4.50-6.00 10 6/mcL ) RBC 4.52 LAB HGB(LOINC) 13.0-17.5 G/dL Hgb 14.1 LAB HCT(LOINC) 40.0-52.0 % Hct 42.4 LAB MCV(LOINC) 81.0-100.0 fL MCV 93.8 LAB MCH(LOINC) 27.0-33.0 pg MCH 31.1 LAB MCHC(LOINC) 32.0-36.0 G/dL MCHC 33.2 LAB RDW(LOINC) 11.5-15.5 % RDW 13.8 LAB PLT(LOINC) 150-450 10 3/mcL Platelet 177 LAB MPV(LOINC) 6.4-10.5 fL MPV 7.6 Performed By: #### CBC, ADIFF, ANEU, GFR, BMP, TROPI #### [address] [address] .AUTO DIFF Collected: 01/14/2018 Status: F Source: [facility] 11:59 [facility] REPOSITORY TYPE CODE TESTS RESULT OUT OF REFERENCE UNITS RANGE LAB TAMARA(LOINC) 50.0-75.0 % High Neutrophil % 86.7 LAB LYM(LOINC) 20.0-40.0 % Low Lymphocyte % 9.6 LAB MON(LOINC) 2.0-13.0 % Monocyte % 3.3 LAB EO(LOINC) 0.0-6.0 % Eosinophil % 0.1 LAB BAS(LOINC) 0.0-2.5 % Basophil % 0.3 LAB ABLYM(LOIN 0.90-4.32 10 3/mcL C) Low Lymphocyte, 0.50 Absolute LAB LUIS(LOINC 0.09-1.40 10 3/mcL ) Monocyte, 0.20 Absolute LAB AEOS(LOINC 0.00-0.65 10 3/mcL ) Eosinophil, 0.00 Absolute LAB ABAS(LOINC 0.00-0.27 10 3/mcL ) Basophil, 0.00 Absolute Performed By: #### CBC, ADIFF, ANEU, GFR, BMP, TROPI #### [place] [id number] .NEUABS Collected: 01/14/2018 Status: F Source: [facility] 11:59 PM [facility] REPOSITORY TYPE CODE TESTS RESULT OUT OF REFERENCE UNITS RANGE LAB ANEU(LOINC) 2.25-8.10 10 3/mcL Neutrophil, 4.30 Absolute Performed By: #### CBC, ADIFF, ANEU, GFR, BMP, TROPI #### [place] [id number] .GFR Collected: 01/14/2018 Status: F Source: [facility] 11:59 PM [facility] REPOSITORY TYPE CODE TESTS RESULT OUT OF REFERENCE UNITS RANGE LAB GFRAA(LOINC ml/min/1.73 ) sqm GFR >60 Finnish Result Comment: GFR Population mean for , Non- Americans Ages 20-29 = 116 mL/min/1.73 sq.m. Ages 30-39 = 107 mL/min/1.73 sq.m. Ages 40-49 = 99 mL/min/1.73 sq.m. Ages 50-59 = 93 mL/min/1.73 sq.m. Ages 60-69 = 85 mL/min/1.73 sq.m. Ages 70+ = 75 mL/min/1.73 sq.m. Chronic Kidney Disease: Less than 60 mL/min/1.73 square meters End Stage Renal Disease: Less than 15 mL/min/1.73 square meters LAB GFRNO(LOINC) ml/min/1.73sqm GFR Non- >60 Result Comment: GFR Population mean for , Non- Americans Ages 20-29 = 116 mL/min/1.73 sq.m. Ages 30-39 = 107 mL/min/1.73 sq.m. Ages 40-49 = 99 mL/min/1.73 sq.m. Ages 50-59 = 93 mL/min/1.73 sq.m. Ages 60-69 = 85 mL/min/1.73 sq.m. Ages 70+ = 75 mL/min/1.73 sq.m. Chronic Kidney Disease: Less than 60 mL/min/1.73 square meters End Stage Renal Disease: Less than 15 mL/min/1.73 square meters Performed By: #### CBC, ADIFF, ANEU, GFR, BMP, TROPI #### [address] [address] BMP Collected: 01/14/2018 Status: F Source: [facility] 11:59 [facility] REPOSITORY TYPE CODE TESTS RESULT OUT OF REFERENCE UNITS RANGE LAB GLU(LOINC) 82-115 mg/dL High Glucose Level 346 LAB NA(LOINC) 136-145 mEq/L Sodium Level 139 LAB K(LOINC) 3.5-5.0 mEq/L Potassium Level 4.6 Result Comment: Specimen slightly hemolyzed. Results may be falsely elevated. LAB CL(LOINC) 98-110 mEq/L Chloride 105 LAB CO2(LOINC) 22-32 mEq/L CO2 23 LAB EBAL(LOINC) 4.0-15.0 mEq/L Electrolyte Balance 11.0 LAB BUN(LOINC) 8.0-22.0 mg/dL BUN 19.0 LAB CRE(LOINC) 0.60-1.40 mg/dL Creatinine Lvl (s) 0.92 LAB BC(LOINC) 10.0-22.0 ratio BUN/Creatinine Ratio 20.7 LAB CA(LOINC) 8.4-10.1 mg/dL Calcium Lvl Low 8.0 Performed By: #### CBC, ADIFF, ANEU, GFR, BMP, TROPI #### [address] [address] TROPI Collected: 01/14/2018 Status: F Source: [facility] 11:59 PM [facility] REPOSITORY TYPE CODE TESTS RESULT OUT OF REFERENCE UNITS RANGE LAB TROPI(LOINC 0.000-0.040 ng/mL ) High Troponin I 0.043 Result Comment: Troponin I reference ranges (11/04/13): 0.00-0.040 ng/mL Negative and non-diagnostic. >0.040 ng/mL Consistent with cardiac damage, increased clinical risk and possibility of myocardial infarction. Serial measurements, a rise & fall in test results, clinical history, appropriate symptoms and/or ECG changes may help assess possibility of OR. *Other non-acute coronary syndrome conditions such as CHF, myocarditis, pulmonary emboli, sepsis and cardiac surgery could result in myocardial damage and increased troponin levels. Performed By: #### CBC, ADIFF, ANEU, GFR, BMP, TROPI #### [place] [address] TROPONIN Collected: 01/14/2018 Status: F Source: [facility] 7:04 PM [facility] REPOSITORY TYPE CODE TESTS RESULT OUT OF REFERENCE UNITS RANGE LAB TROPONIN 0.00 - 0.05 ng/ml I(LOINC) High TROPONIN I 0.06 Result Comment: Elevated troponin (above the 99th percentile) usually indicates myocardial ischemia. Results must be interpreted within the clinical setting. 1.Non-ischemic pathology can also cause elevated troponin levels (e.g., acute pulmonary embolism, myocarditis, pericarditis, heart failure, intracranial injury, rhabdomyolisis, sepsis, shock and renal insufficiency). 2.Approximately 1% of healthy adults have elevated troponin levels. 3.Analytical false positive results rarely occur(due to multiple interferences such as heterophile antibodies). Performed By: #### [id number] #### [facility],[address] [place] [address] CHEST 1 VIEW Observed: 01/14/2018 Status: F Source: [facility] 4:27 PM [facility] REPOSITORY [place] [address] Patient: BERT BRAVO Phone#: : [phone] Age: 77 Gender: M Pt. Type: ER Account: [id number] Location: 052 Ordering: DR. HARSH ROBERTSON Exam Date: 01/14/2018/16:04 Family Phys: GASTON YIP Charge Code: [id number] Physician: [place] Order #: [id number] DLP Dose#: PROCEDURE: X-RAY CHEST 1 VIEW COMPARISON: [facility], XR, CHEST AP, 07/23/2015, 8:18. INDICATIONS: Dizziness FINDINGS: LUNGS: Normal. No significant pulmonary parenchymal abnormalities. VASCULATURE: Normal. Unremarkable pulmonary vasculature. CARDIAC: Normal. No cardiac silhouette abnormality or cardiomegaly. MEDIASTINUM: Normal. No visible mass or adenopathy. PLEURA: Normal. No effusion or pleural thickening. BONES: There are degenerative changes of the spine. OTHER: Left chest wall cardiac pacemaker with 2 leads. CONCLUSION: No acute disease. No significant change has occurred. Dictated by: Pebbles Apple MD on 01/15/2018 at 8:45 Approved by: Pebbles Apple MD on 01/15/2018 at 8:45 CT BRAIN W/O CONTRAST Observed: 01/14/2018 Status: F Source: [facility] 4:19 PM [place] [address] Patient: BERT BRAVO Phone#: : [phone] Age: 77 Gender: M Pt. Type: ER Account: [id number] Location: [facility] Ordering: DR. HARSH ROBERTSON Exam Date: 01/14/2018/16:13 Family Phys: GASTON YIP Charge Code: [id number] Physician: [place] Order #: [id number] DLP Dose#: PROCEDURE: CT BRAIN WITHOUT CONTRAST COMPARISON: [facility], CT, BRAIN W/O CON, 05/28/2012, 11:39. [facility], CT, BRAIN W/O CON, 05/11/2014, 3:17. INDICATIONS: Dizziness TECHNIQUE: CT images were obtained without contrast material. All CT scans at this facility use dose modulation, iterative reconstruction, and/or weight based dosing when appropriate to reduce radiation dose to as low as reasonably achievable. IV CONTRAST: No IV contrast used,0ml TOTAL DOSE: 52.3 CTDIvol(mGy) FINDINGS: CEREBRUM: No edema, hemorrhage, mass. There is global atrophy. There is stable right parietal calcifications. There are periventricular deep cerebral white matter hypodensities. CEREBELLUM: No edema, hemorrhage, mass. There is global atrophy. BRAINSTEM: No edema, hemorrhage, mass, or inappropriate atrophy. CSF SPACES: Cisterns and sulci are proportionate to the degree of atrophy and symmetric in size and configuration. There is stable ex vacuo dilatation of the right posterior horn and compensatory enlargement of the lateral ventricles due to the atrophy. No subarachnoid hemorrhage or mass. SKULL: No mass or other significant visible lesion. SINUSES: Limited views demonstrate no significant mucosal thickening or fluid. ORBITS: Limited views are unremarkable. OTHER: There are degenerative changes of the TMJ. There are atherosclerotic calcifications of the cavernous carotid arteries. CONCLUSION: 1. No appreciable acute intracranial abnormality or interval change. Note: An acute ischemic event or extension of a chronic ischemic process cannot be initially evident on CT. [place] [address] Patient: BERT BRAVO. Phone#: : 1940 Age: 77 Gender: M Pt. Type: ER Account: [id number] Location: [facility] Ordering: DR. HARSH ROBERTSON Exam Date: 01/14/2018/16:13 Family Phys: GASTON YIP Charge Code: [id number] Physician: [place] Order #: [id number] DLP Dose#: Dictated by: Pebbles Apple MD on 01/15/2018 at 10:55 Approved by: Pebbles Apple MD on 01/15/2018 at 10:55 EMERGENCY REPORT Observed: 01/14/2018 Status: F Source: [facility] 3:51 PM [facility] EMERGENCY ROOM REPORT NAME ACCOUNT SEX AGE ADMIT DISCHARGE PT MED. RECORD# NUMBER DATE DATE TYPE Richard [id number] M 77 01/14/18 3 BERT [place] [address] ROOM: ER DATE OF : 1940 DICTATING PHYSICIAN: Harsh Robertson CHIEF COMPLAINT: Chest pain. HISTORY OF PRESENT ILLNESS: This is a 77-year-old male patient who presents with his daughter with 1 hour prior to arrival chest pain. The patient has an extensive cardiac history including 6 stents, pacemaker placement in 2014. He presented to [facility] about 2 weeks ago, according to the daughter, with neurological stroke like symptoms and chest pain. They did a CT of his head and were concerned about a small parietal bleed that he may have had. He also was having cardiac complains, and so the neurologist saw the patient and cleared him to have a catheterization after a stress test was positive. The catheterization was followed up with angioplasty, which was done on Monday. No stents were placed for an obtuse marginal narrowing. The daughter reports that the catheterization was also done with an echocardiogram, which his EF had decreased from 50 to 30% in 2 weeks. Once he was cleared by neurology, he had the angioplasty. He did well. He did have some postoperative chest pain, which they were using Ultram in the hospital for. He was just discharged from the hospital yesterday in the early afternoon hours. He did have some chest pain while in the hospital yesterday, which they again gave him Ultram for. He was doing fine overnight, and daughter reports that he complained of chest pain substernal approximately an hour prior to arrival. He is a poor historian because he has normal pressure hydrocephalus, dementia, and whenever he is experiencing pain she says he closes his eyes and does not really like to talk to people and she said that is pretty consistent with anytime he is upset or complaining about anything. So initially on examination, she does most of the talking. She did not give him aspirin today and said other than that his potassium was slightly elevated on the hospital admission and resolved prior to discharge. PAST MEDICAL HISTORY: Coronary artery disease, normal pressure hydrocephalus, [id number] diabetes, and CVA. PAST SURGICAL HISTORY: Angioplasty, cardiac catheterization with stents. MEDICATIONS: See nursing notes. ALLERGIES: None. FAMILY HISTORY: Noncontributory. Page 1 of 2 BERT BRAVO Emergency Room Report SOCIAL HISTORY: Negative for alcohol, tobacco, or illicit drug abuse. REVIEW OF SYSTEMS: Ten systems reviewed and present above in the HPI. PHYSICAL EXAMINATION: Vital signs: Blood pressure 131/95, pulse 60, respiratory rate 16, temperature 97.9, O2 saturation 96% on room air. General: Eyes closed. He will open and he is very hard of hearing. He will follow commands. He says that his chest hurts on the left side. Head: Normocephalic and atraumatic. Pupils are equal and reactive to light bilaterally. Mucous membranes are moist. Full range of motion of the neck without any difficulty. No audible bruit or JVD. Heart rate and rhythm are regular without murmur, gallop, or rub. Lungs: Clear to auscultation bilaterally without wheeze, rales, or rhonchi. Abdomen: Soft. No tenderness, guarding, rebound, or rigidity. Femoral pulses are symmetrical. Good pulses and perfusion to the lower extremities without calf tenderness, swelling, signs of DVT or cellulitis. Normal baseline neurological examination with no deficits and baseline according to daughter. DIAGNOSTIC DATA: EKG, interpreted by myself, as a paced rhythm. CT of the brain, read by the radiologist, as no change from previous. BNP is normal. Troponin is slightly elevated at 0.07. Electrolytes are normal. No white count elevation, H&H are stable. No left shift and platelet count is normal. EMERGENCY DEPARTMENT COURSE AND TREATMENT: The patient received 4 baby aspirin here. He is awake, alert, and talkative now. He says he is chest pain free. DIAGNOSIS: Chest pain, status post angioplasty. PLAN/DISPOSITION: I spoke with Dr. Downing, cardiology, and said to go ahead and transfer the patient to their facility as an accepting physician. We are pending bed placement. The patient is chest pain free, hemodynamically stable currently. Dictated By: Harsh Robertson DO 01/14/18 17:40 JOB #: [id number] Transcribed By: am 01/14/18 17:48 Electronically signed by: E-Sign: HARSH ROBERTSON MD 01/16/18 12:00 Page 2 of 2 BERT BRAVO Emergency Room Report CBC Collected: 01/14/2018 Status: F Source: [facility] 3:50 PM [facility] REPOSITORY TYPE CODE TESTS RESULT OUT OF RANGE REFERENCE UNITS LAB CBC(LOINC) CBC Result Comment: CBC-COMPLETE BLOOD COUNT LAB WBC(LOINC) 4.5 - 10.8 x 10EE3/UL WBC 8.2 LAB RBC(LOINC) 4.50 - x 10EE6/UL 6.00 RBC 4.56 LAB HEMOGLOBIN(LOINC) 13.0 - g/dl 17.5 HEMOGLOBIN 14.6 LAB HEMATOCRIT(LOINC) 40.0 - % 52.0 HEMATOCRIT 41.6 LAB MCV(LOINC) 81 - 98 fl MCV 91 LAB MCH(LOINC) 27 - 33 pg MCH 32 LAB MCHC(LOINC) 32 - 36 X10 3 MCHC 35 LAB RDW/CV(LOINC) 12.0 - % 15.6 RDW/CV 13.9 LAB PLATELET(LOINC) 150 - 450 x10EE3/UL PLATELET 187 LAB MPV(LOINC) 6.4 - 10.5 fl MPV 7.3 Result Comment: AUTOMATED DIFFERENTIAL LAB NEUT %(LOINC) 46.0 - 76.0 % NEUT % 73.6 LAB LYMPH %(LOINC) 20.0 - 45.0 % LYMPH % Low 14.7 LAB MONOS %(LOINC) 0.0 - 10.0 % MONOS % 8.5 LAB EO %(LOINC) 0.0 - 7.0 % EO % 2.9 LAB BASO %(LOINC) 0.0 - 2.0 % BASO % 0.3 LAB Lymph #(LOINC) 0.80 - 2.80 x10EE3/U L Lymph # 1.20 LAB Neut #(LOINC) 1.50 - 7.10 x10EE3/U L Neut # 6.00 LAB Campbell #(LOINC) 0.20 - 1.00 x10EE3/U L Campbell # 0.70 LAB EO #(LOINC) 0.00 - 0.50 x10EE3/U L EO # 0.20 LAB Baso #(LOINC) 0.00 - 0.10 x10EE3/U L Baso # 0.00 LAB MANUAL DIFF(LOINC) MANUAL DIFF N/A LAB MORPHOLOGY(LOINC ) MORPHOLOGY N/A Result Comment: {CD] Performed By: #### [id number] #### [facility],[address] [place] [address] BMP WITH EGFR Collected: 01/14/2018 Status: F Source: [facility] 3:50 PM [facility] REPOSITORY TYPE CODE TESTS RESULT OUT OF RANGE REFERENCE UNITS LAB BMP with eGFR(LOINC) BMP with eGFR Result Comment: BASIC METABOLIC PANEL LAB SODIUM(LOINC) 136 - 145 mmol/l SODIUM 137 LAB POTASSIUM(LOINC) 3.5 - 5.1 mmol/L POTASSIUM 3.9 LAB CHLORIDE(LOINC) 98 - 107 mmol/L CHLORIDE 103 LAB CO2(LOINC) 21.0 - mmol/L 31.0 CO2 25.6 LAB GLUCOSE(LOINC) 74 - 106 mg/dl GLUCOSE High 177 LAB BUN(LOINC) 6 - 20 mg/dl BUN 18 LAB CREATININE(LOINC) 0.7 - 1.3 mg/dl CREATININE 1.1 LAB CALCIUM(LOINC) 8.6 - mg/dl 10.2 CALCIUM 9.1 LAB ANION GAP(LOINC) 10 - 20 mmol/L ANION GAP 12 LAB AGE(LOINC) years AGE 77 LAB eGFR(LOINC) 60 - 999 ML/MINUTE eGFR >60 LAB eGFR(AA)(LOINC) 60 - 999 ML/MINUTE eGFR(AA) >60 Result Comment: ACCORDING TO THE NATIONAL KIDNEY DISEASE EDUCATION PROGRAM(NKDE), A NORMAL eGFR IS A VALUE GREATER THAN OR EQUAL TO 60 ML/MIN/1.73 SQ METERS. CHRONIC KIDNEY DISEASE: <60mL/MIN/1.73 SQ METERS KIDNEY FAILURE: <15mL/MIN/1.73 SQ METERS THIS TEST SHOULD ONLY BE USED FOR PATIENTS 18 YEARS OF AGE AND OLDER. Performed By: #### [id number] #### [place] [address] TROPONIN Collected: 01/14/2018 Status: F [facility] PM [facility] REPOSITORY TYPE CODE TESTS RESULT OUT OF REFERENCE UNITS RANGE LAB TROPONIN 0.00 - 0.05 ng/ml I(LOINC) High Alert TROPONIN I 0.07 Result Comment: { CALLED TO JW/FRANKI 1638 { READ BACK BY [id number] Elevated troponin (above the 99th percentile) usually indicates myocardial ischemia. Results must be interpreted within the clinical setting. 1.Non-ischemic pathology can also cause elevated troponin levels (e.g., acute pulmonary embolism, myocarditis, pericarditis, heart failure, intracranial injury, rhabdomyolisis, sepsis, shock and renal insufficiency). 2.Approximately 1% of healthy adults have elevated troponin levels. 3.Analytical false positive results rarely occur(due to multiple interferences such as heterophile antibodies). Performed By: #### [id number] #### [facility],[address] [place] [address] BNP (B-TYPE NATRIURETIC Collected: 01/14/2018 Status: F [facility] PM [facility] REPOSITORY TYPE CODE TESTS RESULT OUT OF RANGE REFERENCE UNITS LAB BNP(LOINC) 1 - 100 pg/ml BNP 95 Performed By: #### [id number] #### [id number] [address] CBC Collected: 01/13/2018 Status: F Source: [facility] 5:54 AM [facility] REPOSITORY Order Comment: clotted TYPE CODE TESTS RESULT OUT OF REFERENCE UNITS RANGE LAB WBC(LOINC) 4.50-10.80 10 3/mcL WBC 6.70 LAB RBCCT(LOINC 4.50-6.00 10 6/mcL ) Low RBC 4.49 LAB HGB(LOINC) 13.0-17.5 G/dL Hgb 14.1 LAB HCT(LOINC) 40.0-52.0 % Hct 41.5 LAB MCV(LOINC) 81.0-100.0 fL MCV 92.6 LAB MCH(LOINC) 27.0-33.0 pg MCH 31.5 LAB MCHC(LOINC) 32.0-36.0 G/dL MCHC 34.1 LAB RDW(LOINC) 11.5-15.5 % RDW 13.9 LAB PLT(LOINC) 150-450 10 3/mcL Platelet 178 LAB MPV(LOINC) 6.4-10.5 fL MPV 7.4 Performed By: #### GFR, BMP, MG, CBC, ADIFF, ANEU #### [place] [address] .AUTO DIFF Collected: 01/13/2018 Status: F Source: [facility] 5:54 AM [facility] REPOSITORY TYPE CODE TESTS RESULT OUT OF REFERENCE UNITS RANGE LAB TAMARA(LOINC) 50.0-75.0 % Neutrophil % 67.7 LAB LYM(LOINC) 20.0-40.0 % Low Lymphocyte % 18.5 LAB MON(LOINC) 2.0-13.0 % Monocyte % 10.0 LAB EO(LOINC) 0.0-6.0 % Eosinophil % 3.6 LAB BAS(LOINC) 0.0-2.5 % Basophil % 0.2 LAB ABLYM(LOIN 0.90-4.32 10 3/mcL C) Lymphocyte, 1.20 Absolute LAB LUIS(LOINC 0.09-1.40 10 3/mcL ) Monocyte, 0.70 Absolute LAB AEOS(LOINC 0.00-0.65 10 3/mcL ) Eosinophil, 0.20 Absolute LAB ABAS(LOINC 0.00-0.27 10 3/mcL ) Basophil, 0.00 Absolute Performed By: #### GFR, BMP, MG, CBC, ADIFF, ANEU #### [address] [address] .NEUABS Collected: 01/13/2018 Status: F Source: [facility] 5:54 AM [facility] REPOSITORY TYPE CODE TESTS RESULT OUT OF REFERENCE UNITS RANGE LAB ANEU(LOINC) 2.25-8.10 10 3/mcL Neutrophil, 4.50 Absolute Performed By: #### GFR, BMP, MG, CBC, ADIFF, ANEU #### [address] [address] .GFR Collected: 01/13/2018 Status: F Source: [facility] 4:28 AM [facility] REPOSITORY TYPE CODE TESTS RESULT OUT OF REFERENCE UNITS RANGE LAB GFRAA(LOINC ml/min/1.73 ) sqm GFR >60 Finnish Result Comment: GFR Population mean for , Non- Americans Ages 20-29 = 116 mL/min/1.73 sq.m. Ages 30-39 = 107 mL/min/1.73 sq.m. Ages 40-49 = 99 mL/min/1.73 sq.m. Ages 50-59 = 93 mL/min/1.73 sq.m. Ages 60-69 = 85 mL/min/1.73 sq.m. Ages 70+ = 75 mL/min/1.73 sq.m. Chronic Kidney Disease: Less than 60 mL/min/1.73 square meters End Stage Renal Disease: Less than 15 mL/min/1.73 square meters LAB GFRNO(LOINC) ml/min/1.73sqm GFR Non- >60 Result Comment: GFR Population mean for , Non- Americans Ages 20-29 = 116 mL/min/1.73 sq.m. Ages 30-39 = 107 mL/min/1.73 sq.m. Ages 40-49 = 99 mL/min/1.73 sq.m. Ages 50-59 = 93 mL/min/1.73 sq.m. Ages 60-69 = 85 mL/min/1.73 sq.m. Ages 70+ = 75 mL/min/1.73 sq.m. Chronic Kidney Disease: Less than 60 mL/min/1.73 square meters End Stage Renal Disease: Less than 15 mL/min/1.73 square meters Performed By: #### GFR, BMP, MG, CBC, ADIFF, ANEU #### [address] [address] BMP Collected: 01/13/2018 Status: F Source: [facility] 4:28 AM [facility] REPOSITORY TYPE CODE TESTS RESULT OUT OF REFERENCE UNITS RANGE LAB GLU(LOINC) 82-115 mg/dL High Glucose Level 163 LAB NA(LOINC) 136-145 mEq/L Sodium Level 144 LAB K(LOINC) 3.5-5.0 mEq/L High Potassium Level 5.5 Result Comment: Specimen slightly hemolyzed. LAB CL(LOINC) 98-110 mEq/L Chloride 106 LAB CO2(LOINC) 22-32 mEq/L CO2 28 LAB EBAL(LOINC) 4.0-15.0 mEq/L Electrolyte Balance 10.0 LAB BUN(LOINC) 8.0-22.0 mg/dL BUN High 23.0 LAB CRE(LOINC) 0.60-1.40 mg/dL Creatinine Lvl (s) 1.11 LAB BC(LOINC) 10.0-22.0 ratio BUN/Creatinine Ratio 20.7 LAB CA(LOINC) 8.4-10.1 mg/dL Calcium Lvl 8.8 Performed By: #### GFR, BMP, MG, CBC, ADIFF, ANEU #### [address] [address] MG Collected: 01/13/2018 Status: F Source: [facility] 4:28 AM [facility] REPOSITORY TYPE CODE TESTS RESULT OUT OF REFERENCE UNITS RANGE LAB MG(LOINC) 1.6-2.4 mg/dL Magnesium Lvl 2.3 Result Comment: Specimen moderately hemolyzed. Results may be falsely elevated. Performed By: #### GFR, BMP, MG, CBC, ADIFF, ANEU #### [address] [address] BMP Collected: 01/12/2018 Status: F Source: [facility] 5:09 AM [facility] REPOSITORY TYPE CODE TESTS RESULT OUT OF REFERENCE UNITS RANGE LAB GLU(LOINC) 82-115 mg/dL Glucose High Level 160 LAB NA(LOINC) 136-145 mEq/L Sodium Level 142 LAB K(LOINC) 3.5-5.0 mEq/L Potassium Level 4.3 LAB CL(LOINC) 98-110 mEq/L Chloride 106 LAB CO2(LOINC) 22-32 mEq/L CO2 25 LAB EBAL(LOINC 4.0-15.0 mEq/L ) Electrolyte Balance 11.0 LAB BUN(LOINC) 8.0-22.0 mg/dL BUN 22.0 LAB CRE(LOINC) 0.60-1.40 mg/dL Creatinine Lvl (s) 1.12 LAB BC(LOINC) 10.0-22.0 ratio BUN/Creatinine 19.6 Ratio LAB CA(LOINC) 8.4-10.1 mg/dL Calcium Lvl 8.6 Performed By: #### BMP, GFR, CBC, ADIFF, ANEU, MG #### [place] [address] .GFR Collected: 01/12/2018 Status: F Source: [facility] 5:09 AM [facility] REPOSITORY TYPE CODE TESTS RESULT OUT OF REFERENCE UNITS RANGE LAB GFRAA(LOINC ml/min/1.73 ) sqm GFR >60 Finnish Result Comment: GFR Population mean for , Non- Americans Ages 20-29 = 116 mL/min/1.73 sq.m. Ages 30-39 = 107 mL/min/1.73 sq.m. Ages 40-49 = 99 mL/min/1.73 sq.m. Ages 50-59 = 93 mL/min/1.73 sq.m. Ages 60-69 = 85 mL/min/1.73 sq.m. Ages 70+ = 75 mL/min/1.73 sq.m. Chronic Kidney Disease: Less than 60 mL/min/1.73 square meters End Stage Renal Disease: Less than 15 mL/min/1.73 square meters LAB GFRNO(LOINC) ml/min/1.73sqm GFR Non- >60 Result Comment: GFR Population mean for , Non- Americans Ages 20-29 = 116 mL/min/1.73 sq.m. Ages 30-39 = 107 mL/min/1.73 sq.m. Ages 40-49 = 99 mL/min/1.73 sq.m. Ages 50-59 = 93 mL/min/1.73 sq.m. Ages 60-69 = 85 mL/min/1.73 sq.m. Ages 70+ = 75 mL/min/1.73 sq.m. Chronic Kidney Disease: Less than 60 mL/min/1.73 square meters End Stage Renal Disease: Less than 15 mL/min/1.73 square meters Performed By: #### BMP, GFR, CBC, ADIFF, ANEU, MG #### [address] [address] CBC Collected: 01/12/2018 Status: F Source: [facility] 5:09 AM [facility] REPOSITORY TYPE CODE TESTS RESULT OUT OF REFERENCE UNITS RANGE LAB WBC(LOINC) 4.50-10.80 10 3/mcL WBC 6.50 LAB RBCCT(LOINC 4.50-6.00 10 6/mcL ) RBC 4.54 LAB HGB(LOINC) 13.0-17.5 G/dL Hgb 14.3 LAB HCT(LOINC) 40.0-52.0 % Hct 42.0 LAB MCV(LOINC) 81.0-100.0 fL MCV 92.5 LAB MCH(LOINC) 27.0-33.0 pg MCH 31.6 LAB MCHC(LOINC) 32.0-36.0 G/dL MCHC 34.1 LAB RDW(LOINC) 11.5-15.5 % RDW 13.9 LAB PLT(LOINC) 150-450 10 3/mcL Platelet 189 LAB MPV(LOINC) 6.4-10.5 fL MPV 7.5 Performed By: #### BMP, GFR, CBC, ADIFF, ANEU, MG #### [address] [address] .AUTO DIFF Collected: 01/12/2018 Status: F Source: [facility] 5:09 AM [facility] REPOSITORY TYPE CODE TESTS RESULT OUT OF REFERENCE UNITS RANGE LAB TAMARA(LOINC) 50.0-75.0 % Neutrophil % 57.3 LAB LYM(LOINC) 20.0-40.0 % Lymphocyte % 31.2 LAB MON(LOINC) 2.0-13.0 % Monocyte % 8.1 LAB EO(LOINC) 0.0-6.0 % Eosinophil % 3.2 LAB BAS(LOINC) 0.0-2.5 % Basophil % 0.2 LAB ABLYM(LOIN 0.90-4.32 10 3/mcL C) Lymphocyte, 2.00 Absolute LAB LUIS(LOINC 0.09-1.40 10 3/mcL ) Monocyte, 0.50 Absolute LAB AEOS(LOINC 0.00-0.65 10 3/mcL ) Eosinophil, 0.20 Absolute LAB ABAS(LOINC 0.00-0.27 10 3/mcL ) Basophil, 0.00 Absolute Performed By: #### BMP, GFR, CBC, ADIFF, ANEU, MG #### [address] [address] .NEUABS Collected: 01/12/2018 Status: F Source: [facility] 5:09 AM [facility] REPOSITORY TYPE CODE TESTS RESULT OUT OF REFERENCE UNITS RANGE LAB ANEU(LOINC) 2.25-8.10 10 3/mcL Neutrophil, 3.70 Absolute Performed By: #### BMP, GFR, CBC, ADIFF, ANEU, MG #### [place] [address] MG Collected: 01/12/2018 Status: F Source: [facility] 5:09 AM [facility] REPOSITORY TYPE CODE TESTS RESULT OUT OF REFERENCE UNITS RANGE LAB MG(LOINC) 1.6-2.4 mg/dL Magnesium Lvl 2.3 Performed By: #### BMP, GFR, CBC, ADIFF, ANEU, MG #### [place] [address] BMP Collected: 01/11/2018 Status: F Source: [facility] 4:42 AM [facility] REPOSITORY TYPE CODE TESTS RESULT OUT OF REFERENCE UNITS RANGE LAB GLU(LOINC) 82-115 mg/dL Glucose High Level 310 LAB NA(LOINC) 136-145 mEq/L Sodium Level 139 LAB K(LOINC) 3.5-5.0 mEq/L Potassium Level 4.2 LAB CL(LOINC) 98-110 mEq/L Chloride 104 LAB CO2(LOINC) 22-32 mEq/L CO2 27 LAB EBAL(LOINC 4.0-15.0 mEq/L ) Electrolyte Balance 8.0 LAB BUN(LOINC) 8.0-22.0 mg/dL BUN 20.0 LAB CRE(LOINC) 0.60-1.40 mg/dL Creatinine Lvl (s) 0.98 LAB BC(LOINC) 10.0-22.0 ratio BUN/Creatinine 20.4 Ratio LAB CA(LOINC) 8.4-10.1 mg/dL Calcium Lvl 8.8 Performed By: #### BMP, GFR, CBC, ADIFF, ANEU, MG #### [address] [address] .GFR Collected: 01/11/2018 Status: F Source: [facility] 4:42 AM [facility] REPOSITORY TYPE CODE TESTS RESULT OUT OF REFERENCE UNITS RANGE LAB GFRAA(LOINC ml/min/1.73 ) sqm GFR >60 Finnish Result Comment: GFR Population mean for , Non- Americans Ages 20-29 = 116 mL/min/1.73 sq.m. Ages 30-39 = 107 mL/min/1.73 sq.m. Ages 40-49 = 99 mL/min/1.73 sq.m. Ages 50-59 = 93 mL/min/1.73 sq.m. Ages 60-69 = 85 mL/min/1.73 sq.m. Ages 70+ = 75 mL/min/1.73 sq.m. Chronic Kidney Disease: Less than 60 mL/min/1.73 square meters End Stage Renal Disease: Less than 15 mL/min/1.73 square meters LAB GFRNO(LOINC) ml/min/1.73sqm GFR Non- >60 Result Comment: GFR Population mean for , Non- Americans Ages 20-29 = 116 mL/min/1.73 sq.m. Ages 30-39 = 107 mL/min/1.73 sq.m. Ages 40-49 = 99 mL/min/1.73 sq.m. Ages 50-59 = 93 mL/min/1.73 sq.m. Ages 60-69 = 85 mL/min/1.73 sq.m. Ages 70+ = 75 mL/min/1.73 sq.m. Chronic Kidney Disease: Less than 60 mL/min/1.73 square meters End Stage Renal Disease: Less than 15 mL/min/1.73 square meters Performed By: #### BMP, GFR, CBC, ADIFF, ANEU, MG #### [address] [address] CBC Collected: 01/11/2018 Status: F Source: [facility] 4:42 AM [facility] REPOSITORY TYPE CODE TESTS RESULT OUT OF REFERENCE UNITS RANGE LAB WBC(LOINC) 4.50-10.80 10 3/mcL WBC 8.40 LAB RBCCT(LOINC 4.50-6.00 10 6/mcL ) Low RBC 4.42 LAB HGB(LOINC) 13.0-17.5 G/dL Hgb 13.8 LAB HCT(LOINC) 40.0-52.0 % Hct 40.7 LAB MCV(LOINC) 81.0-100.0 fL MCV 92.0 LAB MCH(LOINC) 27.0-33.0 pg MCH 31.1 LAB MCHC(LOINC) 32.0-36.0 G/dL MCHC 33.8 LAB RDW(LOINC) 11.5-15.5 % RDW 13.8 LAB PLT(LOINC) 150-450 10 3/mcL Platelet 210 LAB MPV(LOINC) 6.4-10.5 fL MPV 7.5 Performed By: #### BMP, GFR, CBC, ADIFF, ANEU, MG #### [facility] [address] [place] [id number] .AUTO DIFF Collected: 01/11/2018 Status: F Source: [facility] 4:42 AM [facility] REPOSITORY TYPE CODE TESTS RESULT OUT OF REFERENCE UNITS RANGE LAB TAMARA(LOINC) 50.0-75.0 % High Neutrophil % 81.2 LAB LYM(LOINC) 20.0-40.0 % Low Lymphocyte % 11.9 LAB MON(LOINC) 2.0-13.0 % Monocyte % 6.7 LAB EO(LOINC) 0.0-6.0 % Eosinophil % 0.1 LAB BAS(LOINC) 0.0-2.5 % Basophil % 0.1 LAB ABLYM(LOIN 0.90-4.32 10 3/mcL C) Lymphocyte, 1.00 Absolute LAB LUIS(LOINC 0.09-1.40 10 3/mcL ) Monocyte, 0.60 Absolute LAB AEOS(LOINC 0.00-0.65 10 3/mcL ) Eosinophil, 0.00 Absolute LAB ABAS(LOINC 0.00-0.27 10 3/mcL ) Basophil, 0.00 Absolute Performed By: #### BMP, GFR, CBC, ADIFF, ANEU, MG #### [facility] [address] [place] [address] .NEUABS Collected: 01/11/2018 Status: F Source: [facility] 4:42 AM [facility] REPOSITORY TYPE CODE TESTS RESULT OUT OF REFERENCE UNITS RANGE LAB ANEU(LOINC) 2.25-8.10 10 3/mcL Neutrophil, 6.90 Absolute Performed By: #### BMP, GFR, CBC, ADIFF, ANEU, MG #### [facility] [address] [place] [address] MG Collected: 01/11/2018 Status: F Source: [facility] 4:42 AM [facility] REPOSITORY TYPE CODE TESTS RESULT OUT OF REFERENCE UNITS RANGE LAB MG(LOINC) 1.6-2.4 mg/dL Magnesium Lvl 2.2 Performed By: #### BMP, GFR, CBC, ADIFF, ANEU, MG #### [facility] [address] [place] [address] NM MYOCARDIAL SPECT Observed: 01/10/2018 Status: F Source: [place] STRESS/REST 8:00 AM [facility] REPOSITORY ORIGINAL NM MYOCARDIAL SPECT STRESS/REST CLINICAL STATEMENT: CP TECHNIQUE: Adenosine dose:56 mg Radiopharmaceutical (stress): Tc-99m Sestamibi Dose:19.4 mCi Radiopharmaceutical (rest): Tc-99m Sestamibi Dose:6.3 mCi SPECT acquisition and processing Reconstruction and reorientation of SPECT images into short axis, vertical and horizontal long axis planes Quantitative LVEF assessment COMPARISON:None REPORT:Overall image quality is fair. CT images show intracardiac pacer/defibrillator wires. There is subdiaphragmatic attenuation noted. SPECT perfusion images show normal tracer uptake in all cardiac segments except for the inferior wall and apex in both rest and stress images. There is reduced uptake in the inferior wall on both rest and stress images with some reversibility in the mid inferior wal l. Findings are consistent with inferior infarct with mid inferior ischemia. However, there is persistent decrease in radioisotope uptake involving the apex in attenuated corrected images. This most lik liliane represents infarct. TID ratio is within normal limits. Gated SPECT images show abnormal wall motion and thickening involving the inferior and apical cardiac segments. Overall, LV function is globall y hypokinetic with an ejection fraction of 36%. LEFT ventricular size is within normal limits with an end-diastolic volume of 133 mL. IMPRESSION: 1. Findings are suggestive of infarct involving the inferior wall and apex with mid inferior ischemia of small size and moderate intensity.. 2. Overall LV systolic function is diminished with an EF of 36%. Interpreted By: Kai Garcia MD Preliminary Report By: Jalen [place] Electronically Signed By: Kai Garcia MD Dictated Date: 01/10/2018 1:58:52 PM Prelim Date: 01/10/2018 2:10:41 PM Sign Date: 01/10/2018 2:50:31 PM CBC Collected: 01/10/2018 Status: F Source: [facility] 6:27 AM [facility] REPOSITORY TYPE CODE TESTS RESULT OUT OF REFERENCE UNITS RANGE LAB WBC(LOINC) 4.50-10.80 10 3/mcL WBC 6.00 LAB RBCCT(LOINC 4.50-6.00 10 6/mcL ) RBC 4.61 LAB HGB(LOINC) 13.0-17.5 G/dL Hgb 14.5 LAB HCT(LOINC) 40.0-52.0 % Hct 42.6 LAB MCV(LOINC) 81.0-100.0 fL MCV 92.4 LAB MCH(LOINC) 27.0-33.0 pg MCH 31.4 LAB MCHC(LOINC) 32.0-36.0 G/dL MCHC 34.0 LAB RDW(LOINC) 11.5-15.5 % RDW 13.8 LAB PLT(LOINC) 150-450 10 3/mcL Platelet 210 LAB MPV(LOINC) 6.4-10.5 fL MPV 7.2 Performed By: #### CBC, ADIFF, ANEU, BMP, GFR #### [place] [address] .AUTO DIFF Collected: 01/10/2018 Status: F Source: [facility] 6:27 AM [facility] REPOSITORY TYPE CODE TESTS RESULT OUT OF REFERENCE UNITS RANGE LAB TAMARA(LOINC) 50.0-75.0 % High Neutrophil % 85.8 LAB LYM(LOINC) 20.0-40.0 % Low Lymphocyte % 10.8 LAB MON(LOINC) 2.0-13.0 % Monocyte % 3.1 LAB EO(LOINC) 0.0-6.0 % Eosinophil % 0.1 LAB BAS(LOINC) 0.0-2.5 % Basophil % 0.2 LAB ABLYM(LOIN 0.90-4.32 10 3/mcL C) Low Lymphocyte, 0.60 Absolute LAB LUIS(LOINC 0.09-1.40 10 3/mcL ) Monocyte, 0.20 Absolute LAB AEOS(LOINC 0.00-0.65 10 3/mcL ) Eosinophil, 0.00 Absolute LAB ABAS(LOINC 0.00-0.27 10 3/mcL ) Basophil, 0.00 Absolute Performed By: #### CBC, ADIFF, ANEU, BMP, GFR #### [place] [address] .NEUABS Collected: 01/10/2018 Status: F Source: [facility] 6:27 AM [facility] REPOSITORY TYPE CODE TESTS RESULT OUT OF REFERENCE UNITS RANGE LAB ANEU(LOINC) 2.25-8.10 10 3/mcL Neutrophil, 5.20 Absolute Performed By: #### CBC, ADIFF, ANEU, BMP, GFR #### [place] [address] BMP Collected: 01/10/2018 Status: F Source: [facility] 6:27 AM [facility] REPOSITORY TYPE CODE TESTS RESULT OUT OF REFERENCE UNITS RANGE LAB GLU(LOINC) 82-115 mg/dL Glucose High Level 236 LAB NA(LOINC) 136-145 mEq/L Sodium Level 139 LAB K(LOINC) 3.5-5.0 mEq/L Potassium Level 4.6 LAB CL(LOINC) 98-110 mEq/L Chloride 103 LAB CO2(LOINC) 22-32 mEq/L CO2 27 LAB EBAL(LOINC 4.0-15.0 mEq/L ) Electrolyte Balance 9.0 LAB BUN(LOINC) 8.0-22.0 mg/dL BUN 20.0 LAB CRE(LOINC) 0.60-1.40 mg/dL Creatinine Lvl (s) 0.95 LAB BC(LOINC) 10.0-22.0 ratio BUN/Creatinine 21.1 Ratio LAB CA(LOINC) 8.4-10.1 mg/dL Calcium Lvl 8.8 Performed By: #### CBC, ADIFF, ANEU, BMP, GFR #### [address] [address] .GFR Collected: 01/10/2018 Status: F [facility] REPOSITORY TYPE CODE TESTS RESULT OUT OF REFERENCE UNITS RANGE LAB GFRAA(LOINC ml/min/1.73 ) sqm GFR >60 Finnish Result Comment: GFR Population mean for , Non- Americans Ages 20-29 = 116 mL/min/1.73 sq.m. Ages 30-39 = 107 mL/min/1.73 sq.m. Ages 40-49 = 99 mL/min/1.73 sq.m. Ages 50-59 = 93 mL/min/1.73 sq.m. Ages 60-69 = 85 mL/min/1.73 sq.m. Ages 70+ = 75 mL/min/1.73 sq.m. Chronic Kidney Disease: Less than 60 mL/min/1.73 square meters End Stage Renal Disease: Less than 15 mL/min/1.73 square meters LAB GFRNO(LOINC) ml/min/1.73sqm GFR Non- >60 Result Comment: GFR Population mean for , Non- Americans Ages 20-29 = 116 mL/min/1.73 sq.m. Ages 30-39 = 107 mL/min/1.73 sq.m. Ages 40-49 = 99 mL/min/1.73 sq.m. Ages 50-59 = 93 mL/min/1.73 sq.m. Ages 60-69 = 85 mL/min/1.73 sq.m. Ages 70+ = 75 mL/min/1.73 sq.m. Chronic Kidney Disease: Less than 60 mL/min/1.73 square meters End Stage Renal Disease: Less than 15 mL/min/1.73 square meters Performed By: #### CBC, ADIFF, ANEU, BMP, GFR #### [address] [address] TROPI Collected: 01/10/2018 Status: F Source: [facility] 12:07 AM [facility] REPOSITORY TYPE CODE TESTS RESULT OUT OF REFERENCE UNITS RANGE LAB TROPI(LOINC 0.000-0.040 ng/mL ) Troponin I 0.023 Result Comment: Troponin I reference ranges (11/04/13): 0.00-0.040 ng/mL Negative and non-diagnostic. >0.040 ng/mL Consistent with cardiac damage, increased clinical risk and possibility of myocardial infarction. Serial measurements, a rise & fall in test results, clinical history, appropriate symptoms and/or ECG changes may help assess possibility of OR. *Other non-acute coronary syndrome conditions such as CHF, myocarditis, pulmonary emboli, sepsis and cardiac surgery could result in myocardial damage and increased troponin levels. Performed By: #### TROPI #### [address] [address] TROPI Collected: 01/09/2018 Status: F Source: [facility] 8:11 PM [facility] REPOSITORY TYPE CODE TESTS RESULT OUT OF REFERENCE UNITS RANGE LAB TROPI(LOINC 0.000-0.040 ng/mL ) Troponin I 0.028 Result Comment: Troponin I reference ranges (11/04/13): 0.00-0.040 ng/mL Negative and non-diagnostic. >0.040 ng/mL Consistent with cardiac damage, increased clinical risk and possibility of myocardial infarction. Serial measurements, a rise & fall in test results, clinical history, appropriate symptoms and/or ECG changes may help assess possibility of OR. *Other non-acute coronary syndrome conditions such as CHF, myocarditis, pulmonary emboli, sepsis and cardiac surgery could result in myocardial damage and increased troponin levels. Performed By: #### TROPI #### [address] [address] XR CHEST 1 VIEW Observed: 01/09/2018 Status: F Source: [facility] 12:52 PM [facility] REPOSITORY ORIGINAL XR CHEST 1 VIEW at 12:54 PM CLINICAL STATEMENT: chest pain COMPARISON: 05/14/2014 FINDINGS:Heart is enlarged, but stable. A pacemaker and its leads are unchanged in position. No vascular congestion, pneumothorax, focal consolidation or pleural effusion is seen. IMPRESSION:No acute process. Interpreted By: Kiera Grace MD Preliminary Report By: Kiera Grace MD Electronically Signed By: Kiera Grace MD Dictated Date: 01/09/2018 1:03:04 PM Prelim Date: 01/09/2018 1:03:04 PM Sign Date: 01/09/2018 1:04:11 PM CBC Collected: 01/09/2018 Status: F Source: [facility] 12:13 PM [facility] REPOSITORY TYPE CODE TESTS RESULT OUT OF REFERENCE UNITS RANGE LAB WBC(LOINC) 4.50-10.80 10 3/mcL WBC 8.50 LAB RBCCT(LOINC 4.50-6.00 10 6/mcL ) RBC 4.75 LAB HGB(LOINC) 13.0-17.5 G/dL Hgb 14.9 LAB HCT(LOINC) 40.0-52.0 % Hct 44.5 LAB MCV(LOINC) 81.0-100.0 fL MCV 93.6 LAB MCH(LOINC) 27.0-33.0 pg MCH 31.3 LAB MCHC(LOINC) 32.0-36.0 G/dL MCHC 33.5 LAB RDW(LOINC) 11.5-15.5 % RDW 14.0 LAB PLT(LOINC) 150-450 10 3/mcL Platelet 201 LAB MPV(LOINC) 6.4-10.5 fL MPV 7.3 Performed By: #### CBC, ADIFF, ANEU, BMP, GFR, TROPI #### [address] [address] .AUTO DIFF Collected: 01/09/2018 Status: F Source: [facility] 12:13 PM [facility] REPOSITORY TYPE CODE TESTS RESULT OUT OF REFERENCE UNITS RANGE LAB TAMARA(LOINC) 50.0-75.0 % Neutrophil % 65.3 LAB LYM(LOINC) 20.0-40.0 % Lymphocyte % 24.3 LAB MON(LOINC) 2.0-13.0 % Monocyte % 9.1 LAB EO(LOINC) 0.0-6.0 % Eosinophil % 1.1 LAB BAS(LOINC) 0.0-2.5 % Basophil % 0.2 LAB ABLYM(LOIN 0.90-4.32 10 3/mcL C) Lymphocyte, 2.10 Absolute LAB LUIS(LOINC 0.09-1.40 10 3/mcL ) Monocyte, 0.80 Absolute LAB AEOS(LOINC 0.00-0.65 10 3/mcL ) Eosinophil, 0.10 Absolute LAB ABAS(LOINC 0.00-0.27 10 3/mcL ) Basophil, 0.00 Absolute Performed By: #### CBC, ADIFF, ANEU, BMP, GFR, TROPI #### [place] [id number] .NEUABS Collected: 01/09/2018 Status: F Source: [facility] 12:13 PM [facility] REPOSITORY TYPE CODE TESTS RESULT OUT OF REFERENCE UNITS RANGE LAB ANEU(LOINC) 2.25-8.10 10 3/mcL Neutrophil, 5.50 Absolute Performed By: #### CBC, ADIFF, ANEU, BMP, GFR, TROPI #### [place] [id number] BMP Collected: 01/09/2018 Status: F Source: [facility] 12:13 [facility] REPOSITORY TYPE CODE TESTS RESULT OUT OF REFERENCE UNITS RANGE LAB GLU(LOINC) 82-115 mg/dL Glucose High Level 122 LAB NA(LOINC) 136-145 mEq/L Sodium Level 141 LAB K(LOINC) 3.5-5.0 mEq/L Potassium Level 4.3 LAB CL(LOINC) 98-110 mEq/L Chloride 104 LAB CO2(LOINC) 22-32 mEq/L CO2 28 LAB EBAL(LOINC 4.0-15.0 mEq/L ) Electrolyte Balance 9.0 LAB BUN(LOINC) 8.0-22.0 mg/dL BUN 20.0 LAB CRE(LOINC) 0.60-1.40 mg/dL Creatinine Lvl (s) 0.91 LAB BC(LOINC) 10.0-22.0 ratio BUN/Creatinine 22.0 Ratio LAB CA(LOINC) 8.4-10.1 mg/dL Calcium Lvl 8.8 Performed By: #### CBC, ADIFF, ANEU, BMP, GFR, TROPI #### [place] [id number] .GFR Collected: 01/09/2018 Status: F Source: [facility] 12:13 [facility] REPOSITORY TYPE CODE TESTS RESULT OUT OF REFERENCE UNITS RANGE LAB GFRAA(LOINC ml/min/1.73 ) sqm GFR >60 Finnish Result Comment: GFR Population mean for , Non- Americans Ages 20-29 = 116 mL/min/1.73 sq.m. Ages 30-39 = 107 mL/min/1.73 sq.m. Ages 40-49 = 99 mL/min/1.73 sq.m. Ages 50-59 = 93 mL/min/1.73 sq.m. Ages 60-69 = 85 mL/min/1.73 sq.m. Ages 70+ = 75 mL/min/1.73 sq.m. Chronic Kidney Disease: Less than 60 mL/min/1.73 square meters End Stage Renal Disease: Less than 15 mL/min/1.73 square meters LAB GFRNO(LOINC) ml/min/1.73sqm GFR Non- >60 Result Comment: GFR Population mean for , Non- Americans Ages 20-29 = 116 mL/min/1.73 sq.m. Ages 30-39 = 107 mL/min/1.73 sq.m. Ages 40-49 = 99 mL/min/1.73 sq.m. Ages 50-59 = 93 mL/min/1.73 sq.m. Ages 60-69 = 85 mL/min/1.73 sq.m. Ages 70+ = 75 mL/min/1.73 sq.m. Chronic Kidney Disease: Less than 60 mL/min/1.73 square meters End Stage Renal Disease: Less than 15 mL/min/1.73 square meters Performed By: #### CBC, ADIFF, ANEU, BMP, GFR, TROPI #### [address] [address] TROPI Collected: 01/09/2018 Status: F Source: [facility] 12:13 PM [facility] REPOSITORY TYPE CODE TESTS RESULT OUT OF REFERENCE UNITS RANGE LAB TROPI(LOINC 0.000-0.040 ng/mL ) Troponin I <0.015 Result Comment: Troponin I reference ranges (11/04/13): 0.00-0.040 ng/mL Negative and non-diagnostic. >0.040 ng/mL Consistent with cardiac damage, increased clinical risk and possibility of myocardial infarction. Serial measurements, a rise & fall in test results, clinical history, appropriate symptoms and/or ECG changes may help assess possibility of OR. *Other non-acute coronary syndrome conditions such as CHF, myocarditis, pulmonary emboli, sepsis and cardiac surgery could result in myocardial damage and increased troponin levels. Performed By: #### CBC, ADIFF, ANEU, BMP, GFR, TROPI #### [address] [address] [address] HEAD OR BRAIN W/O Observed: 01/09/2018 Status: F Source: [facility] CONTRAST 9:00 AM [facility] REPOSITORY ORIGINAL Head CT, 01/09/2018 9:13 AM INDICATION: INTRACRANIAL HEMMO COMPARISON: 11 days previously TECHNIQUE: Routine non-contrast head CT. This exam was performed according to our departmental dose optimization program, and includes the following measures where applicable: automated exposure control, adjustment of the mAs and/or kVp accord ing to patient size and/or exam, and an iterative reconstruction algorithm. FINDINGS: There is mild degenerative form hyperintensity along a small area of posterior RIGHT frontal gyrus. There is decreased attenuation in a small amount of adjacent white matter, and there is ex v acuo dilatation of the adjacent lateral ventricle. Otherwise, the ventricles and sulci are mildly to moderately enlarged. There are no abnormal intra or extra-axial fluid collections. There is mild irregular decreased attenuation in the cerebral white matter. The calvaria and the bones of the base of the skull are intact. IMPRESSION: No significant interval change. 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 Interpreted By: Galileo Caldwell MD Preliminary Report By: Galileo Caldwell MD Electronically Signed By: Galileo Caldwell MD Dictated Date: 01/09/2018 9:29:28 AM Prelim Date: 01/09/2018 9:29:28 AM Sign Date: 01/09/2018 9:32:44 AM CV VENOUS LEG LT Observed: 01/05/2018 Status: F Source: [facility] 3:46 PM [facility] REPOSITORY [place] [address] Patient: BERT BRAVO Phone#: : [phone] Age: 77 Gender: M Pt. Type: Out Account: [id number] Location: 052 Ordering: GASTON YIP Exam Date: 01/05/2018/15:13 Family Phys: Charge Code: [id number] Physician: [place] Order #: [id number] DLP Dose#: PROCEDURE: VENOUS DOPPLER LT LEG COMPARISON: None. INDICATIONS: Leg pain TECHNIQUE: Color duplex Doppler ultrasound evaluation analysis was performed in the usual manner. SOLE TRIMMER: CARLENE RISK FACTORS FOR VENOUS DISEASE: Other Leg pain EXAMINATION: RIGHT +Present -Reduced o Absent LEFT SPONT PHASIC AUG REFLUX COMP SPONT PHASIC AUG REFLUX COMP + + + o + CFV + + + o + SFJ + FV (prox) + + + o + FV (mid) + FV (dist) + POP V + + + o + T/P TRUNK + + + o + PTV + + + o + PERONEAL V + + + + + GSV + GASTROC SOLEAL V SOLE TRIMMER'S NOTES: Continued Report - Page 2 of 2 Patient: BERT BRVAO Phone#: : 1940 Age: 77 Gender: M Pt. Type: Out Account: [id number] Location: [facility] Ordering: GASTON YIP Exam Date: 01/05/2018/15:13 Family Phys: Charge Code: [id number] Physician: [place] Order #: [id number] DLP Dose#: FINDINGS: THROMBI: None visible. COMPRESSIBILITY: Normal. OTHER: Minimal reflux of the left peroneal vein. CONCLUSION: 1. No evidence of deep venous thrombosis in the left lower extremity. Dictated by: Pebbles Apple MD on 01/05/2018 at 16:25 Approved by: Pebbles Apple MD on 01/05/2018 at 16:25 CBC Collected: 12/29/2017 Status: F Source: [facility] 6:50 AM [facility] REPOSITORY TYPE CODE TESTS RESULT OUT OF REFERENCE UNITS RANGE LAB WBC(LOINC) 4.50-10.80 10 3/mcL WBC 5.50 LAB RBCCT(LOINC 4.50-6.00 10 6/mcL ) Low RBC 4.47 LAB HGB(LOINC) 13.0-17.5 G/dL Hgb 14.1 LAB HCT(LOINC) 40.0-52.0 % Hct 41.0 LAB MCV(LOINC) 81.0-100.0 fL MCV 91.6 LAB MCH(LOINC) 27.0-33.0 pg MCH 31.6 LAB MCHC(LOINC) 32.0-36.0 G/dL MCHC 34.4 LAB RDW(LOINC) 11.5-15.5 % RDW 14.3 LAB PLT(LOINC) 150-450 10 3/mcL Platelet 220 LAB MPV(LOINC) 6.4-10.5 fL MPV 7.3 Performed By: #### CBC, ADIFF, ANEU, BMP, GFR, LIPID, A1C #### [place] [id number] .AUTO DIFF Collected: 12/29/2017 Status: F Source: [facility] 6:50 AM [facility] REPOSITORY TYPE CODE TESTS RESULT OUT OF REFERENCE UNITS RANGE LAB TAMARA(LOINC) 50.0-75.0 % Neutrophil % 57.6 LAB LYM(LOINC) 20.0-40.0 % Lymphocyte % 27.1 LAB MON(LOINC) 2.0-13.0 % Monocyte % 10.5 LAB EO(LOINC) 0.0-6.0 % Eosinophil % 4.3 LAB BAS(LOINC) 0.0-2.5 % Basophil % 0.5 LAB ABLYM(LOIN 0.90-4.32 10 3/mcL C) Lymphocyte, 1.50 Absolute LAB LUIS(LOINC 0.09-1.40 10 3/mcL ) Monocyte, 0.60 Absolute LAB AEOS(LOINC 0.00-0.65 10 3/mcL ) Eosinophil, 0.20 Absolute LAB ABAS(LOINC 0.00-0.27 10 3/mcL ) Basophil, 0.00 Absolute Performed By: #### CBC, ADIFF, ANEU, BMP, GFR, LIPID, A1C #### [place] [address] .NEUABS Collected: 12/29/2017 Status: F Source: [facility] 6:50 AM [facility] REPOSITORY TYPE CODE TESTS RESULT OUT OF REFERENCE UNITS RANGE LAB ANEU(LOINC) 2.25-8.10 10 3/mcL Neutrophil, 3.20 Absolute Performed By: #### CBC, ADIFF, ANEU, BMP, GFR, LIPID, A1C #### [place] [address] BMP Collected: 12/29/2017 Status: F Source: [facility] 6:50 AM [facility] REPOSITORY TYPE CODE TESTS RESULT OUT OF REFERENCE UNITS RANGE LAB GLU(LOINC) 82-115 mg/dL Glucose High Level 134 LAB NA(LOINC) 136-145 mEq/L Sodium Level 142 LAB K(LOINC) 3.5-5.0 mEq/L Potassium Level 4.0 LAB CL(LOINC) 98-110 mEq/L Chloride 106 LAB CO2(LOINC) 22-32 mEq/L CO2 25 LAB EBAL(LOINC 4.0-15.0 mEq/L ) Electrolyte Balance 11.0 LAB BUN(LOINC) 8.0-22.0 mg/dL BUN 19.0 LAB CRE(LOINC) 0.60-1.40 mg/dL Creatinine Lvl (s) 1.12 LAB BC(LOINC) 10.0-22.0 ratio BUN/Creatinine 17.0 Ratio LAB CA(LOINC) 8.4-10.1 mg/dL Calcium Lvl 8.5 Performed By: #### CBC, ADIFF, ANEU, BMP, GFR, LIPID, A1C #### [place] [address] .GFR Collected: 12/29/2017 Status: F Source: [facility] 6:50 AM [facility] REPOSITORY TYPE CODE TESTS RESULT OUT OF REFERENCE UNITS RANGE LAB GFRAA(LOINC ml/min/1.73 ) sqm GFR >60 Finnish Result Comment: GFR Population mean for , Non- Americans Ages 20-29 = 116 mL/min/1.73 sq.m. Ages 30-39 = 107 mL/min/1.73 sq.m. Ages 40-49 = 99 mL/min/1.73 sq.m. Ages 50-59 = 93 mL/min/1.73 sq.m. Ages 60-69 = 85 mL/min/1.73 sq.m. Ages 70+ = 75 mL/min/1.73 sq.m. Chronic Kidney Disease: Less than 60 mL/min/1.73 square meters End Stage Renal Disease: Less than 15 mL/min/1.73 square meters LAB GFRNO(LOINC) ml/min/1.73sqm GFR Non- >60 Result Comment: GFR Population mean for , Non- Americans Ages 20-29 = 116 mL/min/1.73 sq.m. Ages 30-39 = 107 mL/min/1.73 sq.m. Ages 40-49 = 99 mL/min/1.73 sq.m. Ages 50-59 = 93 mL/min/1.73 sq.m. Ages 60-69 = 85 mL/min/1.73 sq.m. Ages 70+ = 75 mL/min/1.73 sq.m. Chronic Kidney Disease: Less than 60 mL/min/1.73 square meters End Stage Renal Disease: Less than 15 mL/min/1.73 square meters Performed By: #### CBC, ADIFF, ANEU, BMP, GFR, LIPID, A1C #### [address] [address] LIPID Collected: 12/29/2017 Status: F Source: [facility] 6:50 AM [facility] REPOSITORY TYPE CODE TESTS RESULT OUT OF REFERENCE UNITS RANGE LAB CHOL(LOINC 50-199 mg/dL ) Cholesterol 136 Result Comment: Cholesterol Reference Interval: Less than 200 Desirable 200-239 Borderline high risk 240 and above High risk LAB TRIG(LOINC) 3-149 mg/dL Triglycerides 72 Result Comment: Triglyceride Reference Interval: Less than 150 Normal 150-199 Borderline high risk 200-499 High risk 500 or higher Very high risk LAB HD(LOINC) 40-59 mg/dL HDL Cholesterol 54 Result Comment: HDL Reference Interval: Less than 40 Low - high risk 60 or above Optimal/lowers risk LAB LDL(LOINC) 0-129 mg/dL LDL Cholesterol 68 Result Comment: LDL is a calculated result and requires a 12-hr fast. LDL Reference Interval: Less than 100 Optimal 100-129 Near or above optimal 130-159 Borderline high risk 160-189 High risk 190 and above Very high risk Performed By: #### CBC, ADIFF, ANEU, BMP, GFR, LIPID, A1C #### [address] [address] A1C Collected: 12/29/2017 Status: F Source: [facility] 6:50 AM [facility] REPOSITORY TYPE CODE TESTS RESULT OUT OF RANGE REFERENCE UNITS LAB A1C(LOINC) 4.0-6.0 % High Hgb A1c 6.5 Performed By: #### CBC, ADIFF, ANEU, BMP, GFR, LIPID, A1C #### [address] [address] [address] HEAD OR BRAIN W/O Observed: 12/29/2017 Status: F Source: [facility] CONTRAST 5:25 AM [facility] REPOSITORY ORIGINAL CT HEAD OR BRAIN W/O CONTRAST CLINICAL STATEMENT: Mental status change. Possible intracranial hemorrhage TECHNIQUE: Axial imaging was obtained without contrast. This exam was performed according to our departmental dose optimization program, and includes the following measures where applicable: automated exposure control, adjustment of the mAs and/or kVp accord ing to patient size and/or exam, and an iterative reconstruction algorithm. COMPARISON: 12/28/2017 FINDINGS: Moderately severe central volume loss is present, since asymmetrically increased on the RIGHT, the RIGHT parietal lobe hyperdensity in the cortex, when given differences in scan technique, is not definitely changed. No new areas of potential hemorrhage. The bones, mastoids, paranasal sinuses and orbits are unremarkable . IMPRESSION: No definite change from the prior study. Consider persistent short-term imaging follow-up. Interpreted By: Akash Waldrop MD Preliminary Report By: Akash Waldrop MD Electronically Signed By: Akash Waldrop MD Dictated Date: 12/29/2017 8:43:43 AM Prelim Date: 12/29/2017 8:43:43 AM Sign Date: 12/29/2017 8:46:45 AM TROPI Collected: 12/28/2017 Status: F Source: [facility] 8:13 PM [facility] REPOSITORY TYPE CODE TESTS RESULT OUT OF REFERENCE UNITS RANGE LAB TROPI(LOINC 0.000-0.040 ng/mL ) High Troponin I 0.054 Result Comment: Troponin I reference ranges (11/04/13): 0.00-0.040 ng/mL Negative and non-diagnostic. >0.040 ng/mL Consistent with cardiac damage, increased clinical risk and possibility of myocardial infarction. Serial measurements, a rise & fall in test results, clinical history, appropriate symptoms and/or ECG changes may help assess possibility of OR. *Other non-acute coronary syndrome conditions such as CHF, myocarditis, pulmonary emboli, sepsis and cardiac surgery could result in myocardial damage and increased troponin levels. Performed By: #### TROPI #### [place] [address] TROPI Collected: 12/28/2017 Status: F Source: [facility] 4:49 PM [facility] REPOSITORY TYPE CODE TESTS RESULT OUT OF REFERENCE UNITS RANGE LAB TROPI(LOINC 0.000-0.040 ng/mL ) High Troponin I 0.056 Result Comment: Troponin I reference ranges (11/04/13): 0.00-0.040 ng/mL Negative and non-diagnostic. >0.040 ng/mL Consistent with cardiac damage, increased clinical risk and possibility of myocardial infarction. Serial measurements, a rise & fall in test results, clinical history, appropriate symptoms and/or ECG changes may help assess possibility of OR. *Other non-acute coronary syndrome conditions such as CHF, myocarditis, pulmonary emboli, sepsis and cardiac surgery could result in myocardial damage and increased troponin levels. Performed By: #### TROPI #### [facility] [address] [place] [address] CT ANGIOGRAPHY CHEST Observed: 12/28/2017 Status: F Source: [place] W/CONTRAST 12:15 PM [facility] REPOSITORY ORIGINAL CT angiogram of the chest, 12/28/2017 12:29 PM INDICATION: CHEST PAIN COMPARISON: No TECHNIQUE: Axial CT angiogram of the chest following uncomplicated administration of intravenous contrast, with 3D post acquisition processing and with results displayed in source images, coronal recons tructions and 3D volume rendered images. This exam was performed according to our departmental dose optimization program, and includes the following measures where applicable: automated exposure control, adjustment of the mAs and/or kVp accord ing to patient size and/or exam, and an iterative reconstruction algorithm. FINDINGS: The study is of poor to fair technical quality. The study is significantly degraded by motion. There are no filling defects in the main pulmonary artery or its major branches. The lungs are clear. IMPRESSION: No pulmonary embolus. Interpreted By: Galileo Caldwell MD Preliminary Report By: Galileo Caldwell MD Electronically Signed By: Galileo Caldwell MD Dictated Date: 12/28/2017 12:33:29 PM Prelim Date: 12/28/2017 12:33:29 PM Sign Date: 12/28/2017 12:36:[address] HEAD OR BRAIN W/O Observed: 12/28/2017 Status: F Source: [facility] CONTRAST 12:00 PM [facility] REPOSITORY ORIGINAL CT HEAD OR BRAIN W/O CONTRAST CLINICAL STATEMENT: stroke alert. TECHNIQUE: Axial CT images from skull base to vertex without IV contrast. This exam was performed according to our departmental dose optimization program, and includes the following measures where appli cable: automated exposure control, adjustment of the mAs and/or kVp according to patient size and/or exam, and an iterative reconstruction algorithm. COMPARISON: None. FINDINGS: No CT evidence for acute territorial infarct. There is parenchymal hypodensity in the RIGHT parietal lobe abutting significant white matter volume loss. There is no visible vasogenic edema. Scattered foci of white matter hypoattenuation are noted in the cerebral white matter, nonspecific but compatible with mild chronic microvascular angiopathy. The density in the larger dural venous sinus es is grossly normal. Atherosclerotic calcifications are present in the cavernous carotid arteries bilaterally. There is proportionate enlargement of the ventricular system and cortical sulci, compatible with parenchymal volume loss. The skull base and calvarium demonstrate no abnormality. The included paranasal sinuses and mastoid air cells are predominantly clear. 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 This could be calcification, acute petechial blood products or cortical laminar necrosis. Comparison with prior exams would be helpful to differentiate. Akash Yanez MD called these results to ISIDRO HOLDER on 12/28/2017 at 12:14 PM. Interpreted By: Akash Yanez Preliminary Report By: Akash Yanez Electronically Signed By: Akash Yanez Dictated Date: 12/28/2017 12:09:28 PM Prelim Date: 12/28/2017 12:15:27 PM Sign Date: 12/28/2017 2:26:[address] ANGIOGRAPHY NECK Observed: 12/28/2017 Status: F Source: [place] W/CONTRAST 12:00 PM [facility] REPOSITORY ORIGINAL CT ANGIOGRAPHY NECK W/CONTRAST Clinical Statement: stroke alert. TECHNIQUE: Nonionic intravenous contrast material was administered and axial images were obtained through the neck per standard CTA protocol. Multiplanar reformatted and shaded-surface display and three dimensional volume rendered images were generated. Where applicable, evaluation of ICA stenosis was performed using the site of greatest stenosis is compared to the diameter of the ICA distal to the st enosis at a point where the ICA chakraborty become parallel. This exam was performed according to our departmental dose optimization program, and includes the following measures where applicable: automated ex posure control, adjustment of the mAs and/or kVp according to patient size and/or exam, and an iterative reconstruction algorithm. COMPARISON: None. FINDINGS: The imaged aortic arch demonstrates no luminal flap or ulcerated plaque. The origins of the innominate, bilateral common carotid, bilateral subclavian, and RIGHT vertebral arteries demonstrate no significant stenosis. There is severe stenosis at the LEFT vertebral artery origin The left-sided leg and artery origin is ectatic with atherosclerotic mild thickening of its chakraborty. Leads from the left-sided implanted cardiac device are noted. There is mild atherosclerotic plaque carotid bifurcations but no no significant ICA stenosis. The bilateral external carotid arteries are patent. The cervical vertebral arteries are otherwise widely patent and codominant. There is no evidence of arterial dissection, occlusion, extravasation of contrast material, arteriovenous fistula, or pseudoaneurysm. IMPRESSION: 1. No ICA stenosis. 2. 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 Interpreted By: Akash Yanez Preliminary Report By: Akash Yanez Electronically Signed By: Akash Yanez Dictated Date: 12/28/2017 12:35:16 PM Prelim Date: 12/28/2017 12:35:16 PM Sign Date: 12/28/2017 12:39:[address] ANGIOGRAPHY HEAD W/ Observed: 12/28/2017 Status: F Source: [place] CONTRAST 12:00 PM [facility] REPOSITORY ORIGINAL CT ANGIOGRAPHY HEAD W/ CONTRAST CLINICAL STATEMENT: stroke alert. TECHNIQUE: CT angiogram of the vessels of the head following administration of nonionic intravenous contrast, with 3D post-acquisition processing on an independent workstation and with results displayed in source images, sagittal reconstructions through the carotid siphons, coronal and sagittal MIP images and volume rendered images. This exam was performed according to our departmental dose optimizati on program, and includes the following measures where applicable: automated exposure control, adjustment of the mAs and/or kVp according to patient size and/or exam, and an iterative reconstruction algorithm. COMPARISON: Head CT today. FINDINGS: The petrous, cavernous, and supraclinoid segments of the bilateral internal carotid arteries demonstrate no stenosis. Atherosclerotic calcifications are present in the cavernous carotid arteri es. The ophthalmic artery origins are visualized and normal. The anterior and middle cerebral arteries are normal bilaterally. The anterior communicating artery is patent. The posterior communicating arteries are patent. Both posterior cerebral arteries are normal. The vertebral arteries are patent, and codominant. The basilar artery and origins of the superior cerebellar arteries are normal. No saccular aneurysm, proximal arterial cutoff, intra-arterial clot, or hemodynamically significant intracranial arterial stenosis is demonstrated. While the study was optimized for arterial evaluation , the dural venous sinuses demonstrates no evidence of thrombosis. IMPRESSION: There is no large vessel occlusion. Specifically, there is no ICA, M1, proximal M2, or basilar artery occlusion. Interpreted By: Akash Yanez Preliminary Report By: Akash Yanez Electronically Signed By: Akash Yanez Dictated Date: 12/28/2017 12:25:33 PM Prelim Date: 12/28/2017 12:28:55 PM Sign Date: 12/28/2017 12:43:41 PM CMP Collected: 12/28/2017 Status: F Source: [facility] 11:45 AM [facility] REPOSITORY TYPE CODE TESTS RESULT OUT OF REFERENCE UNITS RANGE LAB GLU(LOINC) 82-115 mg/dL Glucose High Level 137 LAB NA(LOINC) 136-145 mEq/L Sodium Level 142 LAB K(LOINC) 3.5-5.0 mEq/L Potassium Level 4.0 LAB CL(LOINC) 98-110 mEq/L Chloride 106 LAB CO2(LOINC) 22-32 mEq/L CO2 30 LAB EBAL(LOINC 4.0-15.0 mEq/L ) Electrolyte Balance 6.0 LAB BUN(LOINC) 8.0-22.0 mg/dL BUN 16.0 LAB CRE(LOINC) 0.60-1.40 mg/dL Creatinine Lvl (s) 1.10 LAB BC(LOINC) 10.0-22.0 ratio BUN/Creatinine 14.5 Ratio LAB CA(LOINC) 8.4-10.1 mg/dL Calcium Lvl 8.6 LAB PROT(LOINC 6.0-8.5 G/dL ) Total Protein 7.0 LAB ALB(LOINC) 3.2-4.8 G/dL Albumin Level 4.0 LAB GLB(LOINC) 1.5-3.8 G/dL Globulin 3.0 LAB AG(LOINC) 0.9-1.6 ratio A/G Ratio 1.3 LAB BILT(LOINC 0.2-1.2 mg/dL ) Bili Total 0.7 LAB AP(LOINC) 38-126 U/L Alk Phos 51 LAB AST(LOINC) 8-34 U/L AST/SGOT 12 LAB ALT(LOINC) 12-55 U/L ALT/SGPT 22 Performed By: #### CMP, GFR, TSH #### [place] [address] .GFR Collected: 12/28/2017 Status: F Source: [facility] 11:45 AM [facility] REPOSITORY TYPE CODE TESTS RESULT OUT OF REFERENCE UNITS RANGE LAB GFRAA(LOINC ml/min/1.73 ) sqm GFR >60 Finnish Result Comment: GFR Population mean for , Non- Americans Ages 20-29 = 116 mL/min/1.73 sq.m. Ages 30-39 = 107 mL/min/1.73 sq.m. Ages 40-49 = 99 mL/min/1.73 sq.m. Ages 50-59 = 93 mL/min/1.73 sq.m. Ages 60-69 = 85 mL/min/1.73 sq.m. Ages 70+ = 75 mL/min/1.73 sq.m. Chronic Kidney Disease: Less than 60 mL/min/1.73 square meters End Stage Renal Disease: Less than 15 mL/min/1.73 square meters LAB GFRNO(LOINC) ml/min/1.73sqm GFR Non- >60 Result Comment: GFR Population mean for , Non- Americans Ages 20-29 = 116 mL/min/1.73 sq.m. Ages 30-39 = 107 mL/min/1.73 sq.m. Ages 40-49 = 99 mL/min/1.73 sq.m. Ages 50-59 = 93 mL/min/1.73 sq.m. Ages 60-69 = 85 mL/min/1.73 sq.m. Ages 70+ = 75 mL/min/1.73 sq.m. Chronic Kidney Disease: Less than 60 mL/min/1.73 square meters End Stage Renal Disease: Less than 15 mL/min/1.73 square meters Performed By: #### CMP, GFR, TSH #### [address] [address] TSH Collected: 12/28/2017 Status: F Source: [place] [facility] 11:45 AM [facility] REPOSITORY TYPE CODE TESTS RESULT OUT OF RANGE REFERENCE UNITS LAB TSH(LOINC) 0.360-3.740 mcIU/mL TSH 1.960 Result Comment: Please note as of 09/10/16 new pediatric reference intervals were added for this test. Performed By: #### CMP, GFR, TSH #### [address] [address] PRO Collected: 12/28/2017 Status: F [facility] REPOSITORY TYPE CODE TESTS RESULT OUT OF REFERENCE UNITS RANGE LAB PT(LOINC) 9.0-14.6 seconds Protime 12.5 Result Comment: Effective 09/11/07, Protime results may be affected by some antibiotics (i.e. Ciprofloxacin, Azithromycin, Bactrim) which may potentiate the action of oral anticoagulants, with further increases in Protime/INR. LAB INR(LOINC) ratio PT International Ratio 1.1 Result Comment: The [place] [employer] (CHEST, 1992, 102:312S-[id number]) recommended therapeutic range for oral anticoagulant therapy is: LOW RISK: Prophylaxis of venous thrombosis INR: 2.0-3.0 Treatment of pulmonary embolism 2.0-3.0 Prevention of systemic embolism 2.0-3.0 HIGH RISK: Mechanical prosthetic valves 2.5-3.5 Performed By: #### PRO #### [place] [address] APTT Collected: 12/28/2017 Status: F Source: [facility] 11:45 AM [facility] REPOSITORY TYPE CODE TESTS RESULT OUT OF REFERENCE UNITS RANGE LAB PDOSE(LOIN C) Heparin dose Unknown (APTT) LAB APTT0(LOIN 25.0-35.0 seconds C) APTT 32.3 Result Comment: For Heparin anticoagulation therapy, the recommended therapeutic range is: 54-77 seconds (APTT Correlation with Anti-Xa therapeutic range of 0.3-0.7 units/ml). PLEASE REFERENCE THE PHARMACY PROTOCOL FOR DOSING. Performed By: #### APTT #### [place] [address] CBC Collected: 12/28/2017 Status: F Source: [facility] 11:28 AM [facility] REPOSITORY TYPE CODE TESTS RESULT OUT OF REFERENCE UNITS RANGE LAB WBC(LOINC) 4.50-10.80 10 3/mcL WBC 5.90 LAB RBCCT(LOINC 4.50-6.00 10 6/mcL ) RBC 4.74 LAB HGB(LOINC) 13.0-17.5 G/dL Hgb 14.9 LAB HCT(LOINC) 40.0-52.0 % Hct 43.8 LAB MCV(LOINC) 81.0-100.0 fL MCV 92.4 LAB MCH(LOINC) 27.0-33.0 pg MCH 31.4 LAB MCHC(LOINC) 32.0-36.0 G/dL MCHC 34.0 LAB RDW(LOINC) 11.5-15.5 % RDW 14.4 LAB PLT(LOINC) 150-450 10 3/mcL Platelet 222 LAB MPV(LOINC) 6.4-10.5 fL MPV 6.7 Performed By: #### CBC, ADIFF, ANEU, BMP, GFR, TROPI, PBNP #### [place] [id number] .AUTO DIFF Collected: 12/28/2017 Status: F Source: [facility] 11:28 AM [facility] REPOSITORY TYPE CODE TESTS RESULT OUT OF REFERENCE UNITS RANGE LAB TAMARA(LOINC) 50.0-75.0 % Neutrophil % 68.0 LAB LYM(LOINC) 20.0-40.0 % Lymphocyte % 21.0 LAB MON(LOINC) 2.0-13.0 % Monocyte % 6.8 LAB EO(LOINC) 0.0-6.0 % Eosinophil % 3.8 LAB BAS(LOINC) 0.0-2.5 % Basophil % 0.4 LAB ABLYM(LOIN 0.90-4.32 10 3/mcL C) Lymphocyte, 1.20 Absolute LAB LUIS(LOINC 0.09-1.40 10 3/mcL ) Monocyte, 0.40 Absolute LAB AEOS(LOINC 0.00-0.65 10 3/mcL ) Eosinophil, 0.20 Absolute LAB ABAS(LOINC 0.00-0.27 10 3/mcL ) Basophil, 0.00 Absolute Performed By: #### CBC, ADIFF, ANEU, BMP, GFR, TROPI, PBNP #### [place] [id number] .NEUABS Collected: 12/28/2017 Status: F Source: [facility] 11:28 AM [facility] REPOSITORY TYPE CODE TESTS RESULT OUT OF REFERENCE UNITS RANGE LAB ANEU(LOINC) 2.25-8.10 10 3/mcL Neutrophil, 4.00 Absolute Performed By: #### CBC, ADIFF, ANEU, BMP, GFR, TROPI, PBNP #### [place] [address] BMP Collected: 12/28/2017 Status: F Source: [facility] 11:28 AM [facility] REPOSITORY TYPE CODE TESTS RESULT OUT OF REFERENCE UNITS RANGE LAB GLU(LOINC) 82-115 mg/dL Glucose High Level 145 LAB NA(LOINC) 136-145 mEq/L Sodium Level 141 LAB K(LOINC) 3.5-5.0 mEq/L Potassium Level 3.9 LAB CL(LOINC) 98-110 mEq/L Chloride 105 LAB CO2(LOINC) 22-32 mEq/L CO2 29 LAB EBAL(LOINC 4.0-15.0 mEq/L ) Electrolyte Balance 7.0 LAB BUN(LOINC) 8.0-22.0 mg/dL BUN 16.0 LAB CRE(LOINC) 0.60-1.40 mg/dL Creatinine Lvl (s) 1.06 LAB BC(LOINC) 10.0-22.0 ratio BUN/Creatinine 15.1 Ratio LAB CA(LOINC) 8.4-10.1 mg/dL Calcium Lvl 8.6 Performed By: #### CBC, ADIFF, ANEU, BMP, GFR, TROPI, PBNP #### [place] [address] .GFR Collected: 12/28/2017 Status: F Source: [facility] 11:28 AM [facility] REPOSITORY TYPE CODE TESTS RESULT OUT OF REFERENCE UNITS RANGE LAB GFRAA(LOINC ml/min/1.73 ) sqm GFR >60 Finnish Result Comment: GFR Population mean for , Non- Americans Ages 20-29 = 116 mL/min/1.73 sq.m. Ages 30-39 = 107 mL/min/1.73 sq.m. Ages 40-49 = 99 mL/min/1.73 sq.m. Ages 50-59 = 93 mL/min/1.73 sq.m. Ages 60-69 = 85 mL/min/1.73 sq.m. Ages 70+ = 75 mL/min/1.73 sq.m. Chronic Kidney Disease: Less than 60 mL/min/1.73 square meters End Stage Renal Disease: Less than 15 mL/min/1.73 square meters LAB GFRNO(LOINC) ml/min/1.73sqm GFR Non- >60 Result Comment: GFR Population mean for , Non- Americans Ages 20-29 = 116 mL/min/1.73 sq.m. Ages 30-39 = 107 mL/min/1.73 sq.m. Ages 40-49 = 99 mL/min/1.73 sq.m. Ages 50-59 = 93 mL/min/1.73 sq.m. Ages 60-69 = 85 mL/min/1.73 sq.m. Ages 70+ = 75 mL/min/1.73 sq.m. Chronic Kidney Disease: Less than 60 mL/min/1.73 square meters End Stage Renal Disease: Less than 15 mL/min/1.73 square meters Performed By: #### CBC, ADIFF, ANEU, BMP, GFR, TROPI, PBNP #### [address] [address] TROPI Collected: 12/28/2017 Status: F Source: [facility] 11:28 AM [facility] REPOSITORY TYPE CODE TESTS RESULT OUT OF REFERENCE UNITS RANGE LAB TROPI(LOINC 0.000-0.040 ng/mL ) Troponin I 0.016 Result Comment: Troponin I reference ranges (11/04/13): 0.00-0.040 ng/mL Negative and non-diagnostic. >0.040 ng/mL Consistent with cardiac damage, increased clinical risk and possibility of myocardial infarction. Serial measurements, a rise & fall in test results, clinical history, appropriate symptoms and/or ECG changes may help assess possibility of OR. *Other non-acute coronary syndrome conditions such as CHF, myocarditis, pulmonary emboli, sepsis and cardiac surgery could result in myocardial damage and increased troponin levels. Performed By: #### CBC, ADIFF, ANEU, BMP, GFR, TROPI, PBNP #### [address] [address] PBNP Collected: 12/28/2017 Status: F Source: [facility] 11:28 AM [facility] REPOSITORY TYPE CODE TESTS RESULT OUT OF REFERENCE UNITS RANGE LAB PBNP(LOINC) 0-1800 pg/mL N-Terminal 305 proBNP Result Comment: NT-proBNP results of less than 300 pg/mL effectively rules out acute congestive heart failure with 99% negative predictive value. Performed By: #### CBC, ADIFF, ANEU, BMP, GFR, TROPI, PBNP #### [address] [address] CARDIOLOGY VISIT Observed: 12/20/2017 Status: F Source: [facility] REPORT 3:28 PM [facility] REPOSITORY [facility] [address] [place] [address] OFFICE VISIT Date of Service: 12/20/17 MR#: [id number] Acct: [id number] Name: BERT BRAVO Rep #: [id number] : 1940 Provider: Sloan Rider MD Age/Sex: 77/M Location[place] [facility] Status: Signed HPI HPI Details: BERT BRAVO, is a 77 M who presents to the office today for outpatient cardiovascular follow-up. He appears to, based upon his recollection, as well as with information from his daughter who was at [facility] RN, note that there was an episode of chest discomfort at night for which he took nitroglycerin sublingual x2 with relief. He did not want to present to the hospital for further evaluation or care. He has had no recurrent discomfort to the best of his recollection. He apparently has been more short of breath and dyspneic over time. He has also been more tired and fatigued. There is also been concerns of lower extremity edema which has necessitated the patient using the furosemide/Lasix therapy beginning this week. Apparently it has made improvement with respect to his lower extremities. He has had no other cardiovascular diagnostic studies or therapeutic intervention other than his pacemaker interrogations. His last interrogation was in August of this year. His pacemaker longevity is approximately 8.5-9 years. Intake Vital Signs12/20/17 Height 6 ft 2 in 12/20/17 Weight: 228 lb 12/20/17 Body Mass Index (BMI) 29.2 12/20/17 Blood Pressure 112/90 H Intake Visit Reasons: F\U for SOB AND Chest pain\PFM Allergies citalopram [From Celexa] Adverse Reaction (Intermediate, Verified 12/20/17 14:38) Unknown Medications acetaminophen 325 mg tablet 325 mg PO .As Needed tab 05/16/17 [History Confirmed 12/20/17] aspirin 81 mg tablet,delayed release 81 mg PO QDAY tab 05/16/17 [History Confirmed 12/20/17] atorvastatin 20 mg tablet 20 mg PO QDAY 05/16/17 [History Confirmed 12/20/17] clopidogrel 75 mg tablet 75 mg PO QDAY tab 05/16/17 [History Confirmed 12/20/17] furosemide 20 mg tablet 20 mg PO QDAY PRN 05/16/17 [History Confirmed 12/20/17] nitroglycerin 0.4 mg sublingual tablet 0.4 mg SUBLINGUAL Q5M PRN 05/16/17 [History Confirmed 12/20/17] pantoprazole 40 mg tablet,delayed release 40 mg PO QDAY 05/16/17 [History Confirmed 12/20/17] ranolazine ER 500 mg tablet,extended release,12 hr 500 mg PO BID tab 05/16/17 [History Confirmed 12/20/17] tramadol 50 mg tablet See Rx Instructions PO Q4H PRN tab 05/16/17 [History Confirmed 12/20/17] glucosamine sulfate 1,000 mg capsule 1,000 mg PO QDAY cap 05/18/17 [History Confirmed 12/20/17] metoprolol tartrate 25 mg tablet 12.5 mg PO BID #180 tab 05/18/17 [Rx Confirmed 12/20/17] metformin 500 mg tablet 500 mg PO BID tab 09/12/17 [History Confirmed 12/20/17] multivitamin tablet 1 tab PO QDAY 09/12/17 [History Confirmed 12/20/17] vitamin E (dl, acetate) 400 unit capsule 400 unit PO QDAY 09/12/17 [History Confirmed 12/20/17] polyethylene glycol 3350 17 gram/dose oral powder 17 g PO DAILY PRN g 12/20/17 [History Confirmed 12/20/17] venlafaxine ER 37.5 mg capsule,extended release 24 hr 18.25 mg PO DAILY cap 12/20/17 [History Confirmed 12/20/17] [facility] Medical History Atrial fibrillation (Acute) Hypertension (Chronic) Atherosclerotic heart disease of [place] coronary artery without angina pectoris (Chronic) Hyperlipidemia (Chronic) Non-ST elevation (NSTEMI) myocardial infarction (Chronic) Diastolic dysfunction (Chronic) Second degree atrioventricular block (Chronic) H/O: stroke (Chronic) Diabetes type 2, uncontrolled (Chronic) Dementia (Chronic) Depression (Acute) Surgical History Presence of other cardiac implants and grafts (Chronic) Presence of cardiac pacemaker (Chronic) Family History Other CVA (cerebral vascular accident) Social History Smoking Status: Never smoker ROS Const Const: Positive for fatigue (increased, no energy) and weakness (increased); negative for weight gain, weight loss, frequent falls or excessive sweating Eyes Eyes: Negative for change in vision, blurry vision or transient loss of vision ENT ENT: Positive for dizziness (HX NPH) and balance problems (walker at night, wheelchair long distances) Cardio Chest Pain: Yes Location: left chest Duration: hours (one half hour) Palpitations: No Edema: Bilateral (ankles/pedals +2-3) Muscle aches with walking: Bilateral (intermittantly; saw family medicine chair, decreased pulse) Additional Details: X2 nitros used 2-3 weeks. Patient spouse x 7 weeks ago Resp Respiratory: Positive for SOB with activity (increased) and SOB at rest (increased) GI GI: Negative vomiting or vomiting blood/hematemesis : Negative for hematuria Musc Musc: Positive for balance problems (walker at night, wheelchair long distances); negative for muscle aches/ myalgia, muscle weakness or joint pain Skin Skin: Negative non-healing lesions or rash Neuro Neuro: Positive for weakness (increased) and dizziness (HX NPH); negative for blurry vision, lightheadedness, frequent falls or orthostatic symptoms Phi Hematologic/Lymphatic: Negative for easy bleeding Endo Endo: Positive for fatigue (increased, no energy); negative for excessive sweating Psych Psych: Negative for anxiety or depression Allergy Allergy/Immunology: Negative for hives, Negative for rash Cardiology Exam Const Appearance: cooperative, healthy appearing, comfortable, no acute distress, well developed, well groomed and other (examined in the wheelchair) Nutritional Appearance: overweight Orientation: alert, awake and oriented x3 Head Head: normal to inspection, normocephalic and atraumatic Ears: hearing grossly normal bilaterally Nose: external nose normal Face and Sinus: face symmetric Mouth: oral mucosae normal Teeth and gingiva: poor dentition Eyes General: appearance normal, both eyes and all related structures Eyelids: eyelids normal Conjunctivae: conjunctivae normal Pupils: PERRL EOM: EOM intact bilaterally Neck Neck: no JVD, normal visual inspection and full ROM Carotids: normal carotid upstroke Chest Chest inspection: normal inspection of the chest, normal respiratory effort and symmetric chest movement; negative cough Auscultation: Bilateral: Clear to Auscultation Cardio Rate: regular rate Rhythm: regular rhythm Heart sounds: S1 normal and S2 normal; negative rub or gallop GI GI: normal to inspection, soft and bowel sounds present Neuro General: alert, awake, oriented x3 and moves all extremities Skin Skin: no rashes or lesions noted Extremities Pulses: Normal: Right Posterior Tibial Pulse, Left Posterior Tibial Pulse, Right Radial Pulse, Left Radial Pulse Lower Extremity Edema: +1: Left, Trace: Bilateral Psych Psychological: normal affect Supplemental Info Transthoracic echocardiogram: 07/24/2015 [facility]: Summary: Left ventricle with mild to moderate increased wall thickness, systolic function normal, LVEF 50-55% Stress test: 11/13/2014 The patient underwent pharmacologic regadenoson evaluation with a peak heart rate of 78 beats per minute (54% predicted maximum heart rate) and a peak blood pressure of 138/86 mmHg. The baseline ECG demonstrated an electronic ventricular paced rhythm. The peak pharmacologic ECG was considered indeterminate secondary to an underlying electronic ventricular paced rhythm. There was a rare premature ectopic complex in recovery. There was no report of chest discomfort during pharmacologic infusion or recovery. The examination was discontinued secondary to completion of protocol. IMPRESSION: 1. Pharmacologic regadenoson evaluation. 2. Peak pharmacologic ECG considered indeterminate secondary to electronic ventricular paced rhythm. 3. Rare premature ectopic complex in recovery. 4. Nuclear images pending. MYOCARDIAL PERFUSION IMAGING STUDY: TECHNIQUE: The patient was injected with 14.6 mCi of Tc99m Cardiolite and subsequently rest SPECT Cardiolite nuclear imaging was obtained in the horizontal long, vertical long and short axes views. The patient underwent pharmacologic regadenoson evaluation with a peak heart rate of 78 beats per minute (54% predicted maximum heart rate) and a peak blood pressure of 138/86 mmHg. The patient was injected with 42.2 mCi of Tc99m Cardiolite and subsequently stress SPECT Cardiolite nuclear imaging was obtained in the horizontal long, vertical long and short axes views. A gated Cardiolite study at peak stress was obtained. INTERPRETATION: Rest and stress SPECT Cardiolite nuclear imaging both demonstrate areas of diminished to absence of tracer uptake in portions of the basal inferoseptal, basal inferior, and basal inferolateral segments, which extends through the mid to distal inferior and inferior apical segments and lateral apical segments, which appears potentially somewhat more prominent at rest as opposed to stress and/or without significant change. There are similar type findings on the resting and stress polar map images. There is notation of diminished end systolic thickening and brightening in the aforementioned areas. The gated Cardiolite study demonstrates diminished myocardial thickening and inward wall motion in the aforementioned areas. The reported LVEF was 41%. The aforementioned findings appear compatible with a combination of shifting soft tissue attenuation/artifact being more prominent at rest as opposed to stress as well as an area of previous myocardial injury/infarction with no myocardial perfusion changes considered diagnostic for associated stress-induced myocardial ischemia. IMPRESSION: 1. Rest and stress SPECT Cardiolite nuclear imaging demonstrate myocardial perfusion changes appearing compatible with a combination of shifting soft tissue attenuation/artifact being somewhat more prominent at rest as opposed to stress as well as an area of previous myocardial injury/infarction involving portions of the basal inferoseptal, basal inferior, basal inferolateral, and the mid to distal inferior/inferoapical and lateral apical segments. 2. There is no myocardial perfusion changes considered diagnostic for associated stress- induced myocardial ischemia. 3. The gated Cardiolite study reports an LVEF of 41%. Cardiac cath: 07/24/2015 [facility]: Summary: Left ventricle systolic function at the lower limits of normal with an LVEF of 45-50%; LAD with proximal 50% stenosis PTCA/stent: 05/28/2014 [facility]: Summary: Proximal LCx PTCA/stent; mid LCx PTCA/stent; first OM proximal PTCA/stent Permanent pacemaker [employer]: [place] Name: Darlene ARGUETA Model #: [id number] Serial #: [id number] Date Implanted: 05/13/2014 Device Characteristics Device: Dual Chamber Type: Pacemaker Remote:Stevie.NET Patient Characteristics AV Node Indication: Second degree AV block Patient Substrate: symptomatic bradycardia Pacemaker Dependent: No Assessment AND Plan 1. Atherosclerosis of [place] coronary artery of [place] heart without angina pectoris I25.10 S/P RCA, LCX, and OM PTCA/SARKIS in April and May of 2014; Plan At the present time he did have some symptoms of chest discomfort was relieved with nitroglycerin sublingual. The daughter is unclear whether this truly represented cardiac related symptoms versus emotional stress related symptoms due to the loss of his spouse recently. However he does have underlying cardiovascular disease. He will continue his current medical management with nitroglycerin sublingual support. In the interim he will have a follow-up pharmacologic stress nuclear imaging study to evaluate for any ongoing myocardial ischemia that would warrant repeat diagnostic cardiac catheterization. Orders Orders: 2. Presence of other cardiac implants and grafts Z95.818 Staged PCI done 05/15/14 to RCA AND then readmitted 05/26/14 for acute coronary syndrome-PCI completed 05/28/14 Plan He does have a history of previous PCI as noted above. Based on his ongoing concerns he will have repeat noninvasive evaluation. Depending upon the findings he may need repeat invasive evaluation. In the meantime he will continue medical management 3. Cardiomyopathy, ischemic I25.5 Plan His LV systolic function has waxed and waned over time. There is concern based upon his symptoms and findings as to whether or not there has been a decrease. Thus he will have a follow-up echocardiogram to reassess his ventricular wall motion and systolic function and help guide further evaluation and care 4. Persistent atrial fibrillation I48.1 Plan He has a history of atrial fibrillation. He will continue his medical management which does include rate control therapy. He has not wanted to be on anticoagulant therapy Orders Orders: 5. Second degree atrioventricular block I44.1 Plan He does have a history of AV conduction system disease. This led to his permanent pacemaker. His pacemaker is being followed. 6. Presence of cardiac pacemaker Z95.0 Pacemaker implant 05/15/14 Plan His most recent pacemaker evaluation is as noted above. It appears to be functioning appropriately at this time. 7. Pure hypercholesterolemia E78.00 Plan He will continue medical management and follow-up as directed. This will include follow-up fasting lipid and hepatic panel. 8. Essential hypertension I10 Plan His blood pressure appears to be reasonably well-controlled at this time. Again he will continue medical therapy and follow-up Orders Orders: Plan Detail Other Medications New: Additional Comments Overall based on his symptoms and findings he will have appropriate laboratory studies performed, the transthoracic echocardiogram, and a pharmacologic stress nuclear imaging study. Depending upon his findings he may need further medication adjustment and/or repeat evaluation in the cardiac catheterization laboratory. The above was discussed and reviewed with the patient and his daughter. They were agreement to the aforementioned evaluation and care plan. Thank you for allowing me to participate in the care of your patient. Please don't hesitate to call if any issues arise. This note was generated using a voice recognition system and there may be incorrect words, spelling or punctuation that were not noted when reviewing the office note prior to saving. Follow Up 6 Months (PFM) Coding Level of Care Code Off vis,est,level 5 Diagnoses Atherosclerosis of [place] coronary artery of [place] heart without angina pectoris I25.10 [place] vs. transplanted heart: [place] heart Presence of other cardiac implants and grafts Z95.818 Cardiomyopathy, ischemic I25.5 Persistent atrial fibrillation I48.1 Atrial fibrillation type: persistent Second degree atrioventricular block I44.1 Presence of cardiac pacemaker Z95.0 Pure hypercholesterolemia E78.00 Hyperlipidemia type: pure hypercholesterolemia Essential hypertension I10 Hypertension type: essential hypertension Coding Level of Care Code Off vis,est,level 5 Diagnoses Atherosclerosis of [place] coronary artery of [place] heart without angina pectoris I25.10 [place] vs. transplanted heart: [place] heart Presence of other cardiac implants and grafts Z95.818 Cardiomyopathy, ischemic I25.5 Persistent atrial fibrillation I48.1 Atrial fibrillation type: persistent Second degree atrioventricular block I44.1 Presence of cardiac pacemaker Z95.0 Pure hypercholesterolemia E78.00 Hyperlipidemia type: pure hypercholesterolemia Essential hypertension I10 Hypertension type: essential hypertension 12/20/17 1528 <Electronically signed by Sloan Rider MD> Date Sloan Rider MD Cosigner Signature: Date (if applicable) CC: md Gaston Yip Observed: 09/19/2017 Status: F Source: [facility] CULTURE, URINE 4:30 PM [facility] REPOSITORY URINE CULTURE SET UP 3 HOURS AFTER DELIVERY TO LAB Urine Culture ORGANISM 1: Mixed Gram Positive Organisms [place] Count >100,000 MIX CULTURE Mixed contaminants. Submit a new specimen if indicated. Performed By: #### [id number] #### [facility] [address] [place], [place] [address]. [place], [address] PACEMAKER CHECK Observed: 09/13/2017 Status: F Source: [facility] 10:42 AM [facility] REPOSITORY [facility] [address] [place] [address] Pacemaker Check Date of Service: 09/12/17 1508 MR#: [id number] Acct: [id number] Name: BERT BRAVO Rep #: [id number] : 1940 From: Ping Lopes Age/Sex: 77/M Location[place] [facility] Status: Signed Billing Codes PM Device Codes: PM Dev Prog Rinaal, Dual 09/12/17 1509 <Electronically signed by Ping Lopes > Date Ping Lopes 09/13/17 1042<Electronically signed by Ryan Gamble MD> Cosigner Signature: Date (if applicable) Ryan Gamble MD CC: CARDIOLOGY VISIT Observed: 09/13/2017 Status: F Source: [facility] REPORT 9:33 AM [facility] REPOSITORY [facility] [address] [place] [address] OFFICE VISIT Date of Service: 09/12/17 MR#: [id number] Acct: [id number] Name: BERT BRAVO Rep #: [id number] : 1940 Provider: ROHIT Smith Age/Sex: 77/M Location: [facility] Status: Signed HPI HPI Details: BERT BRAVO, is a 77 M who presents to the office today for a cardiovascular outpatient follow-up. He has a history of coronary artery disease status post stenting to RCA, LCx, and OM in April and May 2014. He also has a history of ischemic cardiomyopathy, conduction system abnormality, status post permanent pacemaker placement, hyperlipidemia, and Normal Pressure Hydocephalus with conservative medical management. Pt. denies arm, jaw, or neck discomfort. His exercise tolerance is stable. Pt. denies symptoms of palpitations, lightheadedness, near syncope, or syncopal episodes. Pt. denies edema or claudication issues. Pt. denies orthopnea, PND, fever, chills, blood in stool, myalgia, or unexplainable fatigue. His daughter states one episode of chest pain in June 2017. She believes this was related to low blood sugar. She states he has developed worsening dizziness. She states generalized leg pain that improves with Ultram. She states is gate is unsteady. She states he has occasional episodes of blood in urine. Intake Vital Signs09/11/17 Height 6 ft 2 in 09/11/17 Weight: 174 lb 09/11/17 Body Mass Index (BMI) 22.3 09/11/17 Blood Pressure 104/70 Intake Visit Reasons: 9 M FU Allergies citalopram [From Celexa] Adverse Reaction (Intermediate, Verified 05/16/17 09:05) Unknown Medications acetaminophen 325 mg tablet 325 mg PO .As Needed tab 05/16/17 [History Confirmed 09/12/17] aspirin 81 mg tablet,delayed release 81 mg PO QDAY tab 05/16/17 [History Confirmed 09/12/17] atorvastatin 20 mg tablet 20 mg PO QDAY 05/16/17 [History Confirmed 09/12/17] clopidogrel 75 mg tablet 75 mg PO QDAY tab 05/16/17 [History Confirmed 09/12/17] furosemide 20 mg tablet 20 mg PO QDAY PRN 05/16/17 [History Confirmed 09/12/17] nitroglycerin 0.4 mg sublingual tablet 0.4 mg SUBLINGUAL Q5M PRN 05/16/17 [History Confirmed 09/12/17] pantoprazole 40 mg tablet,delayed release 40 mg PO QDAY 05/16/17 [History Confirmed 09/12/17] ranolazine ER 500 mg tablet,extended release,12 hr 500 mg PO BID tab 05/16/17 [History Confirmed 09/12/17] tramadol 50 mg tablet See Label Instructions PO Q4H PRN tab 05/16/17 [History Confirmed 09/12/17] glucosamine sulfate 1,000 mg capsule 1,000 mg PO QDAY cap 05/18/17 [History Confirmed 09/12/17] metoprolol tartrate 25 mg tablet 12.5 mg PO BID #180 tab 05/18/17 [Rx Confirmed 09/12/17] metformin 500 mg tablet 500 mg PO BID tab 09/12/17 [History Confirmed 09/12/17] multivitamin tablet 1 tab PO QDAY 09/12/17 [History Confirmed 09/12/17] polyethylene glycol 3350 17 gram/dose oral powder PO PRN 31 Days #527 09/12/17 [History Confirmed 09/12/17] vitamin E (dl, acetate) 400 unit capsule 400 unit PO QDAY 09/12/17 [History Confirmed 09/12/17] PFSH Medical History Atrial fibrillation (Acute) Hypertension (Chronic) Atherosclerotic heart disease of [place] coronary artery without angina pectoris (Chronic) Hyperlipidemia (Chronic) Non-ST elevation (NSTEMI) myocardial infarction (Chronic) Diastolic dysfunction (Chronic) Second degree atrioventricular block (Chronic) H/O: stroke (Chronic) Diabetes type 2, uncontrolled (Chronic) Dementia (Chronic) Surgical History Presence of other cardiac implants and grafts (Chronic) Presence of cardiac pacemaker (Chronic) Family History Other CVA (cerebral vascular accident) Social History Smoking Status: Never smoker ROS Const Const: Positive for other (leg pain); negative for fatigue, weakness, body ache, fever(s) or chills ENT ENT: Positive for dizziness Cardio Chest Pain: Yes Palpitations: No Edema: None Muscle aches with walking: None Resp Respiratory: Negative for SOB with activity, SOB at rest, SOB orthopnea\SOB lying down or paroxysmal nocturnal dyspnea GI GI: Negative nausea, black,tarry stools, bright, red blood in stools or vomiting blood/hematemesis : Positive for hematuria; negative for frequent nighttime urination/ nocturia Musc Musc: Negative for muscle aches/ myalgia Skin Skin: Negative non-healing lesions or rash Neuro Neuro: Positive for dizziness and lack of coordination (unsteady gait); negative for weakness, lightheadedness, near syncope, syncope or orthostatic symptoms Endo Endo: Negative for fatigue Allergy Allergy/Immunology: Negative for rash Cardiology Exam Const Appearance: cooperative, healthy appearing, comfortable and no acute distress Orientation: alert, awake and oriented x3 Head Head: normal to inspection Ears: hearing grossly normal bilaterally Nose: external nose normal Face and Sinus: face symmetric Mouth: oral mucosae normal Eyes General: appearance normal, both eyes and all related structures Eyelids: eyelids normal Neck Neck: no JVD and normal visual inspection Carotids: normal carotid upstroke Chest Chest inspection: normal inspection of the chest and normal respiratory effort; negative cough Auscultation: Bilateral: Clear to Auscultation Cardio Rate: regular rate Rhythm: regular rhythm Heart sounds: S1 normal and S2 normal; negative rub or gallop GI GI: normal to inspection Neuro General: alert, awake, oriented x3 and CN's II-XI intact bilaterally Skin Skin: no rashes or lesions noted Extremities Pulses: Normal: Right Posterior Tibial Pulse, Left Posterior Tibial Pulse, Right Radial Pulse, Left Radial Pulse Lower Extremity Edema: None: Bilateral Psych Psychological: normal affect Supplemental Info Heart catheterization from June 2015 showed ejection fraction of 45-50%, proximal LAD with 50% stenosis, patent stent to left circumflex, first obtuse marginal with 40% stenosis, and patent stent to RCA. Medical management and risk factor modification was recommended. Echocardiogram from June 2015 showed normal left ventricular size, mildly to moderately increased left ventricle wall thickness, normal systolic function, estimated ejection fraction 50-55%, no regional wall motion abnormalities, and stage I diastolic dysfunction. Stress test from October 2014 was negative for stress-induced myocardial ischemia and showed ejection fraction of 41%. Previous myocardial injury/infarction was noted. August 2017 showed presenting rhythm of AP/ROTARY ENGINE ASSEMBLER at 60 bpm, AP% of 66%, ROTARY ENGINE ASSEMBLER% of 95%, battery longevity of approximately 8.6-8.9 years, and 1 mode switch which comprised 1.3% oftotal time of atrial flutter. Assessment AND Plan 1. Atherosclerosis of [place] coronary artery of [place] heart without angina pectoris I25.10 S/P RCA, LCX, and OM PTCA/SARKIS in April and May of 2014; Plan Heart catheterization from June 2015 showed ejection fraction 45-50%, patent stents, proximal LAD with 50% stenosis, and first obtuse marginal with 40% stenosis. Patient denies any chest pain, arm pain, jaw pain, neck pain, shortness of breath, or fatigue suggestive of angina at this time. We will continue to monitor this. We will not make any medication regimen changes and will continue risk factor modification. 2. Ischemic cardiomyopathy I25.5 Plan Patient's most recent echocardiogram from June 2015 showed estimated ejection fraction of 50-55%. His heart catheterization from June 2015 showed ejection fraction 45 50%. Patient denies any worsening shortness of breath or lower extremity pedal edema. He will continue current medications which include beta yarelis and diuretic. 3. Second degree atrioventricular block I44.1 Plan Patient is status post permanent pacemaker for this. His most recent pacemaker check showed 1 MS episode comprising of 1.3% of total time. He will continue current medications and we will continue to monitor. 4. Presence of cardiac pacemaker Z95.0 Pacemaker implant 05/15/14 Plan Patient's pacemaker/ICD appears to be functioning appropriately. We will continue to monitor this with routine/scheduled follow-ups. 5. Pure hypercholesterolemia E78.00 Plan Patient's most recent lipid panel from April showed cholesterol: 135, HDL: 56, LDL: 61, and triglycerides: 89. He will continue the current statin medication. Plan Detail Additional Comments Thank you for allowing us to participate in the patients plan of care, if you have any questions please do not hesitate to call. This note was generated using a voice recognition system and there may be incorrect words, spelling or punctuation that were not noted when reviewing the office note prior to saving. 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 coronary artery of [place] heart without angina pectoris I25.10 [place] vs. transplanted heart: [place] heart Ischemic cardiomyopathy I25.5 Second degree atrioventricular block I44.1 Presence of cardiac pacemaker Z95.0 Pure hypercholesterolemia E78.00 Hyperlipidemia type: pure hypercholesterolemia Coding Level of Care Code Off vis,est,level 3 Diagnoses Atherosclerosis of [place] coronary artery of [place] heart without angina pectoris I25.10 [place] vs. transplanted heart: [place] heart Ischemic cardiomyopathy I25.5 Second degree atrioventricular block I44.1 Presence of cardiac pacemaker Z95.0 Pure hypercholesterolemia E78.00 Hyperlipidemia type: pure hypercholesterolemia 09/13/17 0933 <Electronically signed by Quintin PASCUAL> Date Quintin PASCUAL Cosigner Signature: Date (if applicable) CC: Gaston Yip PACEMAKER CHECK Observed: 07/27/2017 Status: F Source: JENNIEFR 6:45 PM [facility] [place] REPOSITORY [facility] [address] [place] [address] Pacemaker Check Date of Service: 07/25/17 0833 MR#: [id number] Acct: [id number] Name: BERT BRAVO Rep #: [id number] : 1940 From: Pingklaudia Lopes Age/Sex: 77/M Location[place] [facility] [place] Status: Signed Comments Summary Comments: Remote Dual Chamber Pacemaker Evaluation: See attached scanned remote Wake report. Remote interrogation shows 12 MS episodes, 51% total time and no VHR episodes since 03/21/17. Stored e-grams show PAT and PAF with appropriate MS. Presenting rhythm shows AV sequential paced @ 64 ppm. ROTARY ENGINE ASSEMBLER=98%. Battery longevity approx 8.7 yrs. Lead impedances and sensing remain stable. Normal remote PPM function. Next remote f/u appt scheduled for in 3 mos. Device Device Date Interviewed: 07/04/17 Follow-up Location: remote Interview Reason: scheduled follow up Cast [employer] Dipper: [place] Name: Darlene ARGUETA Model: 2240 Serial #: [id number] Implant Date: 05/13/14 Year(s): 3 Implant Physician: Dr. Salguero/Gregory Patient Characteristics AV/Node Indication: Second degree AV block Ejection fraction %: 50 to 54 By: Echo Underlying rhythm: Sinus bradycardia Pacemaker Dependent: No Device Characteristics Device: Dual Chamber Type: Pacemaker Remote Follow-Up: Stevie.NET Leads Lead #1 [employer] Dipper Lead 1: [employer] Model Lead 1: Serial# Lead 1: [id number] Date Implanted Lead 1: 05/03/14 Position Lead 1: RA Lead #2 [employer] Dipper Lead 2: [employer] [place] Model Lead 2: 2088TC/58 Serial# Lead 2: [id number] Date Implanted Lead 2: 05/13/14 Position Lead 2: RV Diagnostics Pacing % RA Pacin % RV Pacin Mode Switching Total # Episodes: 12 % Mode switched: 51 Arrhythmias Non-Sust Episodes: 0 Measurements Battery Voltage (V): 2.98 Magnet Rate (bmp): 100 Battery %: 95 Predicted Remaining Longevity (months or years): 8.7 years RA Measurements Signal Amplitude (mV): 4.3 Impedance (Ohms): 380 RV Measurements Signal Amplitude (mV): 6.5 Impedance (Ohms): 480 Junior Settings Bradycardia Mode and Timing Settings Pacemaker Mode: DDDR Base Rate: 60 bpm Max Track Rate: 120 bpm Maximum AV Delay: 180 msec Bradycardia Output and Sensitivity Settings Right Atrium: 0.5 msec, 2.0 volts, 0.5 mV sensitivity. Right Ventricle: 0.5 msec, 2.0 volts, 2 mV sensitivity. Billing Codes PM Device Codes: PM Dev Interrogate (Remot Assessment AND Plan Problems 1. Presence of cardiac pacemaker Z95.0 Pacemaker implant 05/15/14 2. Second degree atrioventricular block I44.1 3. Ischemic cardiomyopathy I25.5 4. Persistent atrial fibrillation I48.1 5. Atherosclerosis [place] coronary artery of [place] heart without angina pectoris I25.10 07/27/17 0811 <Electronically signed by Ping Lopes > Date iPng Lopes 07/27/17 1845<Electronically signed by Sloan Rider MD> Cosigner Signature: Date (if applicable) Sloan Rider MD CC: PACEMAKER CHECK Observed: 06/08/2017 Status: F Source: KAKE 11:51 AM [facility] [place] REPOSITORY [facility] [address] [place] [address] Pacemaker Check Date of Service: 05/12/17 1043 MR#: [id number] Acct: [id number] Name: BERT BRAVO Rep #: [id number] : 1940 From: Ping Lopes Age/Sex: 77/M Location: [facility] [place] Status: Signed Comments Summary Comments: Remote Dual Chamber Pacemaker Evaluation: Received yellow alert for exceeded AT/AF burden. Interrogation shows patient in atrial flutter with appropriate MS for approx 2 days and 7 hr. Episode started on 05/09/17 @ 8:05pm. Presenting rhythm shows ventricular paced @ 82 ppm with underlying atrial flutter. ROTARY ENGINE ASSEMBLER=98%. Battery longevity approx 8.6 to 9 years. Lead impedances and sensing remain stable. Pt is on Plavix but not on anticoagulant for atrial fib. Tasha Walls PA-C notified of above and called pt's daughter and scheduled o.v. Device Device Date Interviewed: 05/12/17 Follow-up Location: remote Interview Reason: scheduled follow up Cast Iron Dipper: [place] Name: Darlene ARGUETA Model: 2240 Serial #: [id number] Implant Date: 05/13/14 Year(s): 3 Implant Physician: Dr. Salguero/Gregory Patient Characteristics AV/Node Indication: Second degree AV block Ejection fraction %: 50 to 54 By: Echo Underlying rhythm: Sinus bradycardia Pacemaker Dependent: No Device Characteristics Device: Dual Chamber Type: Pacemaker Remote Follow-Up: NET Leads Lead #1 [employer] Dipper Lead 1: [employer] [place] Model Lead 1: Serial# Lead 1: [id number] Date Implanted Lead 1: 05/03/14 Position Lead 1: RA Lead #2 [employer] Dipper Lead 2: [employer] [place] Model Lead 2: Serial# Lead 2: [id number] Date Implanted Lead 2: 05/13/14 Position Lead 2: RV Diagnostics Pacing % RA Pacin % RV Pacin Mode Switching Total # Episodes: 1 % Mode switched: 4.4 Arrhythmias Non-Sust Episodes: 0 Measurements Battery Voltage (V): 2.99 Magnet Rate (bmp): 100 Battery %: 95 Predicted Remaining Longevity (months or years): 8 to 9 years RA Measurements Signal Amplitude (mV): 3.3 Impedance (Ohms): 360 RV Measurements Signal Amplitude (mV): 9.1 Impedance (Ohms): 530 Junior Settings Bradycardia Mode and Timing Settings Pacemaker Mode: DDDR Base Rate: 60 bpm Max Track Rate: 120 bpm Maximum AV Delay: 180 msec Bradycardia Output and Sensitivity Settings Right Atrium: 0.5 msec, 2.0 volts, 0.5 mV sensitivity. Right Ventricle: 0.5 msec, 2.0 volts, 2 mV sensitivity. Billing Codes PM Device Codes: PM Dev Interrogate (Remot Assessment AND Plan Problems 1. Presence of cardiac pacemaker Z95.0 2. Second degree atrioventricular block I44.1 3. Ischemic cardiomyopathy I25.5 05/12/171818 <Electronically signed by Ping Loeps > Date Ping Lopes 06/08/17 1151<Electronically signed by Sloan Rider MD> Cosigner Signature: Date (if applicable) Sloan Rider MD CC: CARDIOLOGY VISIT Observed: 05/20/2017 Status: F Source: KAKE REPORT 12:02 PM [facility] [place] REPOSIT[facility] [address] [place] [address] OFFICE VISIT Date of Service: 05/18/17 MR#: [id number] Acct: [id number] Name: BERT BRAVO Rep #: [id number] : 1940 Provider: Tasha Walls Age/Sex: 77/M Location[place] [facility] [place] Status: Signed HPI HPI Details: BERT BRAVO, is a 77 M who presents to the office today for for a cardiovascular appointment. He was asked to come in earlier than his follow- up scheduled appointment because of an alert that was noted on his pacemaker for exceeded atrial fibrillation burden. Patient does have a history of coronary artery disease with stenting to his RCA, mid and proximal circumflex and proximal OM in 2014. He also has a history of ischemic cardiomyopathy, nonsustained ventricular tachycardia, hypertension, hyperlipidemia, hemorrhagic CVA, pacemaker placement for second-degree AV block and diabetes. He also does have normal pressure hydrocephalus in which he follows with neurology closely for this. Daughter is accompanied patient today. She states that they have not been able to give patient his Coreg on a daily basis due to low blood pressure readings. They have been holding it if his blood pressure is systolically less than 100. She questions if this has attributed to his atrial fibrillation. Patient does not have any chest discomfort or heaviness. He does not have any worsening shortness of breath. However daughter notes that he is complained of just not feeling right and being off balance. He has not fallen he does ambulate with a wheeled walker. Daughter states that she is not sure if father is aware of his irregular heartbeat. They have not noted any lower extremity edema. She also notes that he is in the process of being scheduled for a colonoscopy. Intake Vital Signs05/18/17 Height 6 ft 2 in 05/18/17 Weight: 231 lb 05/18/17 Body Mass Index (BMI) 29.6 05/18/17 Blood Pressure 104/70 Intake Visit Reasons: per MMM Allergies citalopram [From Celexa] Adverse Reaction (Intermediate, Verified 05/16/17 09:05) Unknown Medications acetaminophen 325 mg tablet 325 mg PO .As Needed tab 05/16/17 [History Confirmed 05/18/17] aspirin 81 mg tablet,delayed release 81 mg PO QDAY tab 05/16/17 [History Confirmed 05/18/17] atorvastatin 20 mg tablet 20 mg PO QDAY 05/16/17 [History Confirmed 05/18/17] clopidogrel 75 mg tablet 75 mg PO QDAY tab 05/16/17 [History Confirmed 05/18/17] furosemide 20 mg tablet 20 mg PO QDAY PRN 05/16/17 [History Confirmed 05/18/17] metformin 500 mg tablet 500 mg PO QDAY tab 05/16/17 [History Confirmed 05/18/17] nitroglycerin 0.4 mg sublingual tablet 0.4 mg SUBLINGUAL Q5M PRN 05/16/17 [History Confirmed 05/18/17] pantoprazole 40 mg tablet,delayed release 40 mg PO QDAY 05/16/17 [History Confirmed 05/18/17] ranolazine ER 500 mg tablet,extended release,12 hr 500 mg PO BID tab 05/16/17 [History Confirmed 05/18/17] tramadol 50 mg tablet See Label Instructions PO Q4H PRN tab 05/16/17 [History Confirmed 05/18/17] ergocalciferol (vitamin D2) 400 unit tablet 400 unit PO QDAY 05/18/17 [History Confirmed 05/18/17] glucosamine sulfate 1,000 mg capsule 1,000 mg PO QDAY cap 05/18/17 [History Confirmed 05/18/17] metoprolol tartrate 25 mg tablet 12.5 mg PO BID #180 tab 05/18/17 [Rx Confirmed 05/18/17] polyethylene glycol 3350 17 gram/dose oral powder PO 31 Days #527 05/18/17 [History Confirmed 05/18/17] PFSH Medical History Atrial fibrillation (Acute) Hypertension (Chronic) Atherosclerotic heart disease of [place] coronary artery without angina pectoris (Chronic) Hyperlipidemia (Chronic) Non-ST elevation (NSTEMI) myocardial infarction (Chronic) Diastolic dysfunction (Chronic) Second degree atrioventricular block (Chronic) H/O: stroke (Chronic) Diabetes type 2, uncontrolled (Chronic) Dementia (Chronic) Surgical History Presence of other cardiac implants and grafts (Chronic) Presence of cardiac pacemaker (Chronic) Family History Other CVA (cerebral vascular accident) Social History Smoking Status: Never smoker ROS Const Const: Positive for fatigue; negative for weakness, fever(s) or headache(s) Eyes Eyes: Negative for blind spots, loss of peripheral vision or transient loss of vision ENT ENT: Positive for dizziness and balance problems; negative for headache(s), tinnitus or Nosebleed/epistaxis Cardio Chest Pain: No Palpitations: No Edema: None Muscle aches with walking: None Resp Respiratory: Negative for SOB with activity, SOB at rest, SOB orthopnea\SOB lying down or Cough GI GI: Negative nausea, vomiting, heartburn or vomiting blood/hematemesis : Negative for hematuria Musc Musc: Positive for muscle weakness and balance problems; negative for muscle aches/ myalgia Neuro Neuro: Positive for dizziness and lightheadedness; negative for weakness, headache(s), near syncope, syncope or orthostatic symptoms Phi Hematologic/Lymphatic: Negative for easy bleeding Endo Endo: Positive for fatigue Cardiology Exam Const Appearance: cooperative and no acute distress Orientation: alert, awake and oriented x3 Limitations: physical limitations Head Head: normocephalic and atraumatic Mouth: moist mucous membranes Eyes General: appearance normal, both eyes and all related structures Conjunctivae: conjunctivae normal Pupils: PERRL EOM: EOM intact bilaterally Neck Neck: normal visual inspection, no lymphadenopathy and no JVD Carotids: Negative bruit Neck Mass: Negative Neck mass Chest Chest inspection: normal inspection of the chest, symmetric chest movement and Pacemaker/ICD Yes left pectoral incision Auscultation: Bilateral: Clear to Auscultation Cardio Palpation: normal PMI Rate: regular rate Rhythm: irregularly irregular Heart sounds: S1 normal and S2 normal; negative rub, gallop or murmur GI GI: normal to inspection, soft, no hepatosplenomegaly and bowel sounds present; negative tender Neuro General: alert, awake, oriented x3 and CN's II-XI intact bilaterally Gait: ataxic and gait assisted Motor: tremor Extremities Pulses: Normal: Right Posterior Tibial Pulse, Left Posterior Tibial Pulse, Right Radial Pulse, Left Radial Pulse Lower Extremity Edema: None: Bilateral Psych Psychological: normal affect Assessment AND Plan 1. Persistent atrial fibrillation I48.1 Plan - FABRICIO Rivera Patient is not symptomatic with his atrial fibrillation. However he does have low blood pressure readings and has not been able to take his beta-yarelis. Will switch him over to metoprolol 12.5 mg twice a day. Daughter will call us back in 2 weeks with an update on what his blood pressure and heart rate readings have been. Hopefully we will be able to increase his metoprolol as tolerated. With the new onset of atrial fibrillation did obtain labs, these were all within normal limits. In regards to taking an anticoagulant feel that the risks outweigh the benefits as he is a significant fall risk and does have a history of a hemorrhagic stroke. For now he will continue with his aspirin and Plavix. 2. Cardiomyopathy, ischemic I25.5 Plan - FABRICIO Rivera Patient does not have any symptoms of congestive heart failure. We will continue to monitor by history, exam and echocardiograms as deemed appropriate. 3. Presence of cardiac pacemaker Z95.0 Pacemaker implant 05/15/14 Veronica - FABRICIO Rivera Pacemaker is functioning appropriately. We will continue to monitor at routine scheduled pacemaker interrogations. Will also continue to monitor his heart rate and rhythm with his pacemaker 4. Pure hypercholesterolemia E78.00; E78.0 Plan - FABRICIO Rivera Recent lipid profile demonstrates a total cholesterol of 135, HDL 56, LDL 61. Patient will continue with current medical management. 5. Atherosclerosis [place] coronary artery of [place] heart without angina pectoris I25.10 Veronica - FABRICIO Rivera Patient does not have any symptoms of angina. Do not feel that any additional cardiac testing to be done at this time. Plan Detail Other Orders Orders: Other Medications New: Discontinued: Additional Comments - FABRICIO Rivera The above patient was discussed with Dr. Gamble in Dr. Rider's absence, he agrees with plan of care. Thank you for allowing us to participate in patient's plan of care, if you have any questions please do not hesitate to call. This note was generated using a voice recognition system and there may be incorrect words, spelling or punctuation errors that were not noted when reviewing the office note prior to saving. Follow Up 05/18/17 (Keep as is) Coding Level of Care Code Off vis,est,level 4 Diagnoses Persistent atrial fibrillation I48.1 Atrial fibrillation type: persistent Cardiomyopathy, ischemic I25.5 Presence of cardiac pacemaker Z95.0 Pure hypercholesterolemia E78.00; E78.0 Hyperlipidemia type: pure hypercholesterolemia Atherosclerosis [place] coronary artery of [place] heart without angina pectoris I25.10 [place] vs. transplanted heart: [place] heart Coding Level of Care Code Off vis,est,level 4 Diagnoses Persistent atrial fibrillation I48.1 Atrial fibrillation type: persistent Cardiomyopathy, ischemic I25.5 Presence of cardiac pacemaker Z95.0 Pure hypercholesterolemia E78.00; E78.0 Hyperlipidemia type: pure hypercholesterolemia Atherosclerosis of [place] coronary artery of [place] heart without angina pectoris I25.10 [place] vs. transplanted heart: [place] heart 05/20/17 1118 <Electronically signed by Tasha REGALADO> Date Tasha REGALADO 05/20/17 1202<Electronically signed by Ryan Gamble MD> Cosigner Signature: Date (if applicable) Ryan Gamble MD CC: Gaston Yip CBC W/DIFF, AUTOMATED Collected: 05/18/2017 Status: F Source: KAKE 2:08 PM [facility] [place] REPOSITORY TYPE CODE TESTS RESULT OUT OF RANGE REFERENCE UNITS LAB L100.1000 4.4-11.0 K/mm3 Normal WBC 5.5 LAB L100.1200 4.6-6.2 M/mm3 Normal RBC 4.79 LAB L100.1300 13.0-16.5 g/dl Normal HGB 15.1 LAB L100.1400 40-54 % Normal HCT 44.0 LAB L100.1500 80-94 fL Normal MCV 91.9 LAB L100.1600 27.0-32.0 pg Normal MCH 31.5 LAB L100.1700 32-36 g/gl Normal MCHC 34.3 LAB L100.1810 11.6-14.6 % Normal RDW CV 13.0 LAB L100.1820 35.1-43.9 fl Normal RDW SD 43.0 LAB L100.1900 150-450 K/mm3 Normal PLT 203 LAB L100.2000 6.2-12.0 fl Normal MPV 9.4 LAB L100.2100 47-70 % Normal NEUT% 54.0 LAB L100.2200 19-41 % Normal LY% 33.5 LAB L100.2300 0-10 % Normal MONO% 9.6 LAB L100.2400 0-5 % Normal EO% 2.5 LAB L100.2500 0-1 % Normal BASO% 0.2 LAB L100.2550 0.0-0.9 % Normal IM GRAN % 0.200 Result Comment: IG% - Immature Granulocytes (promyelocytes, myelocytes and metamyelocytes) > 1% indicates that a LEFT SHIFT is Present. LAB L100.2620 2.0-7.7 X10 3/uL Normal Absolute Neut 3.0 LAB L100.2720 0.83-4.51 X10 3/ul Normal Absolute Lymph 1.85 Performed By: #### L100.0100, L500.2500, L501.5200 #### [facility] [address] [place], [place], [address] BASIC METABOLIC Collected: 05/18/2017 Status: F Source: KAKE PROFILE (BMP) 2:08 PM [facility] [place] REPOSITORY TYPE CODE TESTS RESULT OUT OF RANGE REFERENCE UNITS LAB L501.0100 74-106 mg/dL High GLU 195 Result Comment: Fasting Glucose result greater than or equal to 126 mg/dL suggests DIABETES MELLITUS per A.D.A. criteria. Please note revised GLUCOSE reference range effective 2017. LAB L501.1000 7-18 mg/dL Normal BUN 13 LAB L501.1100 0.70-1.30 mg/dL Normal CREAT,SERUM 1.23 Result Comment: The validity of the calculated GFR AND GFRAA in patients over 70 years has not been determined. Clinical correlation is essential. LAB L501.1110 >60 mL/min Normal EST GFR 60 Result Comment: Non- GFR Calc LAB L501.1115 >60 mL/min Normal EST GFR - AA 73 Result Comment: GFR Calc LAB L501.1300 10-20 RATIO Normal BUN/CRE 10.6 LAB L501.2200 8.5-10.1 mg/dL CA Normal 9.0 LAB L501.5300 136-145 mmol/L NA Normal 140 LAB L501.5600 3.5-5.1 mmol/L K Normal 4.6 LAB L501.5900 98-107 mmol/L CL Normal 106 LAB L501.6100 21.0-32.0 mmol/L Normal CO2 27.0 LAB L501.6200 5-15 Normal GAP 7 Performed By: #### L100.0100, L500.2500, L501.5200 #### [facility] [address] [facility] [place], [place], [address] MAGNESIUM Collected: 05/18/2017 Status: F Source: KAKE 2:08 PM [facility] [place] REPOSITORY TYPE CODE TESTS RESULT OUT OF RANGE REFERENCE UNITS LAB L501.5200 1.6-2.6 mg/dL Normal MG 2.2 Result Comment: Please note revised Magnesium reference range effective 2017. Performed By: #### L100.0100, L500.2500, L501.5200 #### [facility] [address] [place], [address] LIVER PROFILE Collected: 05/18/2017 Status: F Source: KAKE 2:08 PM [facility] REPOSITORY Order Comment: Order Date: 11/07/16 Order Info: 0788-1 - *Hepatic Function Panel Order Info: 67559-8 - *Lipid Profile CC PCP Comments: 12 hours fasting, may have water. TYPE CODE TESTS RESULT OUT OF RANGE REFERENCE UNITS LAB L501.1500 6.4-8.2 g/dL Normal T PROT 7.3 LAB L501.1800 3.2-5.0 g/dL Normal ALB 4.0 LAB L501.1950 2.2-4.2 g/dL Normal GLOB 3.3 LAB L501.4100 15-37 U/L Low AST 14 LAB L501.4305 45-117 U/L Normal ALK P 59 LAB L501.4405 16-61 U/L Normal ALT 27 Result Comment: Please note revised ALT reference range effective 2017. LAB L501.4600 0.20-1.00 mg/dL Normal T BILI 0.70 LAB L501.4700 0.00-0.30 mg/dL Normal D BILI 0.17 Performed By: #### L500.3400 #### [facility] [address], [address] LIPID PROFILE Collected: 05/18/2017 Status: F Source: JENNIFER 2:08 PM [facility] REPOSITORY Order Comment: Order Date: 11/07/16 Order Info: 0788-1 - *Hepatic Function Panel Order Info: 74886-7 - *Lipid Profile CC PCP Comments: 12 hours fasting, may have water. TYPE CODE TESTS RESULT OUT OF RANGE REFERENCE UNITS LAB L501.4900 200 mg/dL Normal CHOL 135 Result Comment: <200 mg/dL Desirable 200-240 mg/dL Borderline >240 mg/dL High Risk LAB L501.5000 mg/dL Normal TRIG 89 Result Comment: The drugs N-Acetylcysteine and Metamizole may falsely depress this assay. Serum Triglycerides Reference Interval Normal <150 mg/dL Borderline high 150 - 199 mg/dL High 200 - 499 mg/dL Very High > or = 500 mg/dL LAB L501.6400 mg/dL Normal HDL 56 Result Comment: The drugs N-Acetylcysteine and Metamizole may falsely depress this assay. Reference Range HDL <40 mg/dL Low HDL Cholesterol HDL >or= 60 mg/dL High HDL Cholesterol LAB L501.6500 0-130 mg/dL Normal LDL 61 LAB L501.6600 5-40 mg/dL Normal VLDL 18 Performed By: #### L500.4100 #### [facility] [address], [address] OFFICE VISIT REPORT Observed: 03/27/2017 Status: F Source: JENNIFER 8:13 AM [facility] REPOSITORY [facility] [address] [place] [address] OFFICE VISIT Date of Service: 03/21/17 MR#: [id number] Acct: [id number] Patient: BERT BRAVO Rep #: [id number] : 1940 Provider: Ping Lopes Age/Sex: 77/M Location[place] [facility] Status: Signed Comments Summary Comments: Remote Dual Chamber Pacemaker Evaluation: Interrogation shows no MS, no AT/AF or VHR episodes since 12/12/16. Presenting rhythm shows AAI pacing @ 63 ppm. ROTARY ENGINE ASSEMBLER=96%. Battery longevity approx 8.8 yrs. Lead impedances, and sensing remain stable. Normal remote PPM function. Pt notified remote transmission received and next f/u appt scheduled for in 3 mos. 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 Name: Darlene ARGUETA Model: 2240 Serial #: [id number] Implant Date: 05/13/14 Year(s): 2 Implant Physician: Dr. Salguero/Gregory Patient Characteristics AV/Node Indication: Second degree AV block Ejection fraction %: 50 to 54 By: Echo (07/24/2015) Underlying rhythm: Sinus bradycardia Pacemaker Dependent: No Device Characteristics Device: Dual Chamber Type: Pacemaker Remote Follow-Up: [employer] Leads Lead #1 Cast Iron Dipper Lead 1: [employer] Model Lead 1: Serial# Lead 1: [id number] Date Implanted Lead 1: 05/03/14 Position Lead 1: RA Lead #2 Cast Iron Dipper Lead 2: [employer] Model Lead 2: 8/58 Serial# Lead 2: [id number] Date Implanted Lead 2: 05/13/14 Position Lead 2: RV Diagnostics Pacing % RA Pacin % RV Pacin Mode Switching Total # Episodes: 0 % Mode switched: 0 Arrhythmias Non-Sust Episodes: 0 Measurements Battery Voltage (V): 2.96 Magnet Rate (bmp): 100 Battery %: 95 Predicted Remaining Longevity (months or years): 8.8 years RA Measurements Signal Amplitude (mV): 3.6 Impedance (Ohms): 360 RV Measurements Signal Amplitude (mV): 8.4 Impedance (Ohms): 550 Junior Settings Junior Settings Pacemaker Mode DDDR Output/Sensing V/PW (ms) 2.0/0.5 2.0/0.5 Sensitivity RA RV LV Comments: Billing Codes PM Device Codes: PM Dev Interrogate (Remot Assessment AND Plan Problems 1. Presence of cardiac pacemaker Z95.0 2. Second degree atrioventricular block I44.1 3. Ischemic cardiomyopathy I25.5 03/24/17 1822 <Electronically signed by Ping Lopes > Date Ping Lopes 03/27/17 0813<Electronically signed by Sloan Rider MD> Cosigner Signature: Date (if applicable) Sloan Rider MD CC: ALLERGIES ALLERGIES DATE TYPE / CODE NAME / CODE REACTION SEVERITY SOURCE 02/01/2018 Drug citalopram/F Unknown MO [facility] Allergy/4160 [id number][facility] [address] NORM[facility] Repository CT) 02/01/2018 Drug lisinopril/F Low blood Unknown [facility] Allergy/4160 [id number]([place] 5324102(SNOMED NORM) Repository CT) 02/01/2018 Drug isosorbide/F Low blood Unknown [facility] Allergy/4160 177093752([place] [address](SNOMED NORM) Repository CT) Drug CELEXA/17046 psych Severe (Severity Bebeto [facility] Allergy/4160 074(RXNORM) Modifier) [place] 1695602(SNOMED (Qualifier Repository CT) Value) ENCOUNTERS ENCOUNTERS ADMIT/DISCHARGE ACCOUNT NUMBER ADMITTING ENCOUNTER LOCATION SOURCE CLASS 02/01/2018/02/02/20 [id number] Ambulatory BMSBuilding: [address] Repository 01/22/2018/01/23/20 [id number] Emergency [address] ding:ED Repository 01/22/2018 [id number] Ambulatory BMSBuilding: [facility] Repository 01/18/2018/12/10 [id number] Yoan Valenzuela Inpatient [place] 18 Chi Encounter [facility] ding:TCURoom Repository : QAL75Jhn: 1 01/14/2018/01/17/20 [id number] TEZ BARNES., Inpatient ABuilding:CC Gregory [address] DR. MANNY Harvey Encounter URoom: Health 0358Bed: A [facility] Repository 01/14/2018/01/15/20 [id number] [facility], Emergency [address] [place] [address] Room: ERBed: [facility] Repository 01/09/2018/01/14/20 [id number] ALFRED BARNES, MIN Inpatient ABuilding:CC Gregory 18 Encounter URoom: Health 0312Bed: A [facility] Repository 01/09/2018 [id number] Ambulatory ABuilding:XR [facility] Repository 01/09/2018/01/10/20 [id number] Ambulatory ABuilding:XR Gregory 18 [facility] Repository 01/05/2018/01/06/20 [id number] GASTON YIP Ambulatory [address] Repository 12/28/2017/12/31/19 [id number] HELGA BARNES, Inpatient ABuilding:ME Gregory 18 ANDERSON Encounter 5NRoom: Health 5625Bed: A [facility] Repository 12/27/2017/12/28/19 [id number] Ambulatory BMSBuilding: Jennifer 18 BMS.[facility] Repository 12/20/2017/12/21/19 [id number] Ambulatory BMSBuilding: [place] 18 BMS.[facility] Repository 09/19/2017 [id number] Ambulatory [place] [facility] ding:LABSPEC Repository 09/12/2017/09/13/19 [id number] Ambulatory BMSBuilding: [place] 18 BMS.[facility] Repository 09/12/2017/09/13/19 [id number] Ambulatory BMSBuilding: [place] 18 BMS.[facility] Repository 07/25/2017/07/26/19 [id number] Ambulatory BMSBuilding: Jennifer 18 BMS.[facility] Repository 06/22/2017 [id number] Ambulatory [facility] Repository 05/18/2017/05/19/19 [id number] Ambulatory BMSBuilding: [place] 18 BMS.[facility] Repository 05/18/[id number] [facility] ding:LAB Repository 05/12/2017/05/13/19 [id number] Ambulatory BMSBuilding: [place] 18 BMS.[facility] Repository 03/21/2017/03/21/19 [id number] Ambulatory BMSBuilding: Jennifer 18 BMS.[facility] Repository PAYERS PAYERS ENCOUNTER GUARANTOR PAYER SUBSCRIBER SOURCE 02/01/2018 BERT F Primary BERT Weber [place] [id number] SR Insurance:MEDICARE GIAUQUEDOB: [address] PART A BPolicy Number: [id number] [address]Agk: (813) [id number] Repository [phone] () Date:2018-02-01 02/01/2018 Secondary BERT Weber [place] Insurance:MEDICAL GIAUQUEDOB: [facility] [id number] Hospital Number: Repository [id number] Date:3933-77-82UE [address] [address]BI: 02/01/2018 Tertiary NOT GIVENUNK [place] Insurance:SELF PAY [facility] Number: Effective Repository Date:2018-02-01 01/22/2018 BERT F Primary BERT Weber [place] [id number] SR Insurance:MEDICARE GIAUQUEDOB: [address] PART A BPolicy Number: [id number] Hospital 120[address]Wmh: (318) [id number] Repository [phone] (HP) Date:2018-01-22 01/22/2018 Secondary BERT Weber [place] Insurance:MEDICAL GIAUQUEDOB: [facility] [id number] Hospital Number: Repository [id number] Date:4278-95-56RC [address] [address]WB: 01/22/2018 Tertiary NOT GIVENUNK [place] Insurance:SELF PAY [facility] Number: Effective Repository Date:2018-01-22 01/22/2018 BERT F Primary BERT F [place] [id number] SR Insurance:MEDICARE GIAUQUEDOB: [address] PART A BPolicy Number: [id number] Hospital [address]Ofz: 330 [id number] Repository [phone] (HP) Date:2018-01-22 01/22/2018 Secondary BERT F [place] Insurance:MEDICAL GIAUQUEDOB: [facility] [id number] Hospital Number: Repository [id number] Date:6061-45-02TA [address] [place] [address]VT: 01/22/2018 Tertiary NOT GIVENUNK [place] Insurance:SELF PAY [facility] Number: Effective Repository Date:2018-01-22 01/18/2018 BERT F Primary EBRT F [place] [id number] Insurance:MEDICARE GIAUQUEDOB: [facility] PART A BPolicy Number: [id number] [id number] Repository 71003Lpr: (964) Date:2018-01-18 [phone] (HP) 01/18/2018 Secondary BERT Weber [place] Insurance:MEDICAL GIAUQUEDOB: [facility] [id number] Hospital Number: Repository [id number] Date:0847-62-06UQ [address] [place] [address]FO: 01/18/2018 Tertiary NOT GIVENUNK [place] Insurance:SELF PAY [facility] Number: Effective Repository Date:2018-01-18 01/14/2018 BERT F Primary [facility]:MEDICARE GIAUQUE JRDOB: [facility] [id number] PART A INSCOPolicy [id number] Repository [address] Number: [address] [place] [address] [id number] [place] [address]~DAVEAK Date:2017-12-28 05478Uwb: (708) G@[facility] CENTERPHELPS HEALTHel: [id number] [phone] Name:MMail Code AG (HP)Tel: (000) (HP) [address] ([place]) [address]125[address]Zxssirud, [place] [address]FK: 01/14/2018 Secondary BERT Deng Health Insurance:MEDICARE GIAUSAINT [facility]ADOB: [facility] [id number] Repository Number: [id number] [place] [address] Date:2017-12-2884397Rlk: [phone] [id number] Name:PCGS (HP)Tel: (000) Administrators LLCPO 000-0000 (WP) [address] [address]bb, [place] [address]LZ: 01/14/2018 Tertiary BERT Deng Health Insurance:MEDICAL [facility]: [facility] [id number] Repository INSCOPolicy Number: [address] [facility] [address] [id number] [place], [place] Date:2017-12-2806022Czt: [phone] [phone] Name:MANAGER PERSONNEL SELECTION Box (HP)Tel: (000) [place], [place] 000-0000 (WP) [address]TK: 01/14/2018 BERT Weber Primary Insurance:[facility] BERT Kaba GIAUQUEDOB: MEDICARE GIAUQUEDOB: [facility] [id number] OUTPATIENTPolicy [id number] RT Number: [address] Repository [place] [id number] [place], [place] [address]Xec: (330) Date:Plan Name: [id number] () 01/14/2018 Secondary JR BERT Kaba Insurance:MEDICAL GIAUQUEDOB: [facility] [employer] [facility] [id number] [facility] OUTPATIENTPoly ST RT Repository Number: [place], [place] [id number] Date: 01/09/2018 BERT F Primary BERT Weber [facility] Insurance:MEDICARE [facility]DOB: [facility] PART A INSCOPolicy [id number] Repository [address] Number: [address] [facility] [address] [place] [address] [id number] [place], [place] [address]~JESSE Date:2016-09-1045806Rpq: 330 G@[facility] MEDICAL CENTERel: [id number] [phone] Name:MMail Code AG (HP)Tel: (000) (HP) [address]0000 (WP) [address]Pvppljtk, [place] [address]YF: 01/09/2018 Secondary [facility]:MEDICARE [facility]: [facility] PART B INSCOPolic [id number] Repository Number: [address] [id number] [place], [place] Date:2016-09-10 [address]Xyq: [phone] [id number] [phone] Name:PCGS (HP)Tel: (000) Administrators LLCPO 000-0000 (WP) [address] [place] [address]NK: 01/09/2018 [facility] BERT Weber [facility] Insurance:MEDICAL [facility]DOB: [facility] [id number] Repository INSCOPolicy Number: [address] [id number] [place], [place] Date:2016-09-10 30709Xwo: [phone] [phone] Name:MANAGER PERSONNEL SELECTION Box (HP)Tel: (000) [place], [place] 000-0000 (WP) [address]LG: 01/09/2018 BERT Primary BERT Weber [facility] Insurance:MEDICARE [facility]DOB: [facility] PART B INSCOPolicy [id number] Repository [address] Number: [address] [facility] R[address] [place] [address] [id number] [place] [address]~DARLETTAK Date:2018-01-09Tel: [phone]) [email or web address]: [id number] [phone] Name:PCGS (HP)Tel: (000) (HP) Administrators LLCPO 000-0000 (WP) [address] [address]Cbyaosugb, [place] [address]IA: 01/09/2018 Secondary [facility] Insurance:MEDICAL [facility]B: [facility] [id number] Repository INSCOPolicy Number: [address] [id number] [address] [place] [address] Date:2018-01-09Tel: [phone]) [id number] [phone] Name:MANAGER PERSONNEL SELECTION Box ()Tel: 000 [address], [place] 000-0000 (WP) [address]LY: 01/09/2018 [facility]ERT [facility] Insurance:MEDICARE GIAUQUE JRDOB: [facility] PART B INSM[address] HE[facility] [address] ANNE HOSPITALolicy [id number] Repository [address] Number: [address] [place] [address] [id number] [place], [place] [address]~DARLETTAK Date:2017-12-29Tel: 330 G@[email or web address].PHELPS HEALTHel: [id number] [phone] Name:[facility] (HP)Tel: (000) (HP) Administrators LLCPO 000-0000 (WP) [address] [address], [place] [address]CH: 01/09/2018 Secondary [facility] Insurance:[facility]B: [facility] [id number] Repository INSCOPolicy Number: [address] [id number] [address] [place] [address] Date:2017-12-29Tel: [phone] [id number] [phone] Name:MANAGER PERSONNEL SELECTION Box (HP)Tel: (000) [place], [place] 000-0000 (WP) [address]RT: 01/05/2018 BERT Weber Primary Insurance:500 JR BERT Kaba GIAUQUEDOB: MEDICARE GIAUQUEDOB: [facility] OUTPATIENTPolicy [id number] RT Number: [facility] Repository [address] [place] [address] [id number] [place] [address]Rws: (330) Date:Plan Name: [id number] [phone] (HP) 01/05/2018 Secondary JR BRET Kaba Insurance:MEDICAL GIAUQUEDOB: [facility] [id number] [facility] OUTPATIENTPolic 11 RT Repository Number: [place] [id number] Date:Plan Name: 12/28/2017 BERT Tia Primary EBRT iTa [facility] GIAUQUE JRDOB: Insurance:MEDICARE GIAUQUE JRDOB: [facility] PART APolicy Number: [id number] Repository [address] [id number] [address] [place] [address] Date:2016-09-[address] [place] [address]~JESSE 6964-59-76Ylxs 388[address]Byo: 330) Leia@[email or web address] CENTERel: Name:[facility] Hospitalil Code [phone] [address] (HP)Tel: (000) (HP) 718273[place]hzvg, [place] 000-0000 (WP) [address]QE: 12/28/2017 Secondary [facility] Insurance:MEDICARE GIAUQUE JRDOB: [facility] PART BPolicy Number: [id number] Repository [id number] [address] Date:2017-12-28 [place], [place] [id number] [address]Bol: (330) Name:[facility] [phone] Administrators LLCPO (HP)Tel: (000) Box 42003[place]wefkfjlwSUNNYVAL[place], [place] 000-0000 (WP) [address]JD: 12/28/2017 Tertiary BERT Deng Health Insurance:MEDICAL GIAUQUE JRDOB: [facility] [id number] Repository INSCOPolicy Number: [address] [id number] [address] [place] [address] Date:2017-12-28 - 89[address]Syx: ([phone]) [phone] [phone] Name:MANAGER PERSONNEL SELECTION Box ()Tel: (331) [place], [place] 000-0000 () [address]SH: 12/27/2017 BERT Weber Primary BERT Weber [place] [id number] SR Insurance:MEDICARE GIAUQUEDOB: [address] PART A BPolicy Number: [id number] Hospital [address]Tzt: (277) [id number] Repository [phone] () Date:2018-01-11 12/27/2017 Secondary BERT Weber [place] Insurance:MEDICAL GIAUQUEDOB: [facility] [id number] Hospital Number: Repository [id number] Date:4357-14-41[place] 1040201-[address]WP: 12/27/2017 Tertiary NOT GIVENUNK [place] Insurance:SELF PAY [facility] Number: Effective Repository Date:2018-01-11 12/20/2017 BERT F Primary BERT Weber [place] [id number] SR Insurance:MEDICARE GIAUQUEDOB: [address] PART A BPolicy Number: [id number] Hospital 7[address]Gdx: (104) [id number] Repository [phone] () Date:2017-12-05 12/20/2017 Secondary BERT Weber [place] Insurance:MEDICAL GIAUQUEDOB: [facility] [id number] Hospital Number: Repository [id number] Date:9827-56-28PP [address] [place] [address]NX: 12/20/2017 Tertiary NOT GIVENUNK [place] Insurance:SELF PAY [facility] Number: Effective Repository Date:2017-12-20 09/19/2017 BERT F Primary BERT Weber [place] [id number] SR Insurance:MEDICARE GIAUQUEDOB: [address] PART A BPolicy Number: [id number] Hospital [address]Pxw: ([phone]) [id number] Repository [phone] () Date:2017-09-19 09/19/2017 Secondary NATIVIDAD J [place] Insurance:AULTCAREPoli GIAUQUEDOB: Community cy Number: [id number] Hospital [id number] Repository Date:9859-43-08ZL [address] [address]YQ: 09/19/2017 Tertiary NOT GIVENUNK [place] Insurance:SELF PAY [facility] Number: Effective Repository Date:2017-09-19 09/12/2017 BERT F Primary BERT Weber [place] [id number] [place] Insurance:MEDICARE GIAUQUEDOB: [address] PART A BPolicy Number: [id number] Hospital [address]Mal: 330 [id number] Repository [phone] () Date:2017-02-06 09/12/2017 Secondary NATIVIDAD J Jennifer Insurance:AULTCAREPoli GIAUQUEDOB: [facility] cy Number: [id number] Hospital [id number] Repository Date:4268-73-22XD [address] [address]SN: 09/12/2017 Tertiary NOT GIVENUNK [place] Insurance:SELF PAY [facility] Number: Effective Repository Date:2017-09-12 09/12/2017 BERT F Primary BERT Weber Jennifer [id number] [place] Insurance:MEDICARE GIAUQUEDOB: [address] PART A BPolicy Number: [id number] Hospital 769[address]Twi: (724) [id number] Repository [phone] (HP) Date:2017-03-24 09/12/2017 Secondary NATIVIDAD J [place] Insurance:AULTCAREPoli GIAUQUEDOB: Community cy Number: [id number] Hospital [id number] Repository Date:9049-82-97[address] [address]AV: 09/12/2017 Tertiary NOT GIVENUNK [place] Insurance:SELF PAY [facility] Number: Effective Repository Date:2017-07-14 07/25/2017 BERT Weber Primary BERT Weber Jennifer [id number] [place] Insurance:MEDICARE GIAUQUEDOB: [address] PART A BPolicy Number: [id number] Hospital 46[address]Iyp: (102) [id number] Repository [phone] (HP) Date:2017-07-25 07/25/2017 Secondary NATIVIDAD J [place] Insurance:AULTCAREPoli GIAUQUEDOB: Community cy Number: [id number] Hospital [id number] Repository Date:5779-53-76HA [address] [place] [address]YB: 07/25/2017 Tertiary NOT GIVENUNK [place] Insurance:SELF PAY [facility] Number: Effective Repository Date:2017-07-25 06/22/2017 BERT Weber Primary BERT Weber Jennifer [id number] [place] Insurance:MEDICARE GIAUQUEDOB: [address] PART A BPolicy Number: [id number] Hospital 367[address]Ymg: (064) [id number] Repository [phone] (HP) Date:2017-06-22 06/22/2017 Secondary NATIVIDAD J Jennifer Insurance:AULTCAREPoli GIAUQUEDOB: Community cy Number: [id number] Hospital [id number] Repository Date:5506-66-34JS [address] [place] [address]BO: 06/22/2017 Tertiary NOT GIVENUNK [place] Insurance:SELF PAY [facility] Number: Effective Repository Date:2017-06-22 05/18/2017 BERT Weber Primary BERT Weber Jennifer [id number] [place] Insurance:MEDICARE GIAUQUEDOB: [address] PART A BPolicy Number: [id number] Hospital 24[address]Aes: (593) [id number] Repository [phone] (HP) Date:2017-05-12 05/18/2017 Secondary NATIVIDAD J Jennifer Insurance:AULTCAREPoli GIAUQUEDOB: Community cy Number: [id number] Hospital [id number] Repository Date:8396-10-47CO [address] [address]YB: 05/18/2017 Tertiary NOT GIVENUNK [place] Insurance:SELF PAY [facility] Number: Effective Repository Date:2017-05-18 05/18/2017 BERT F Primary BERT Weber [place] [id number] [place] Insurance:MEDICARE GIAUQUEDOB: [address] PART A BPolicy Number: [id number] Hospital 01241Hvg: (384) [id number] Repository [phone] (HP) Date:2017-05-18 05/18/2017 Secondary NATIVIDAD J [place] Insurance:AULTCAREPoli GIAUQUEDOB: Community cy Number: [id number] Hospital [id number] Repository Date:3519-17-50GV[address] [address]JH: 05/18/2017 Tertiary NOT GIVENUNK Jennifer Insurance:SELF PAY [facility] Number: Effective Repository Date:2017-05-18 05/12/2017 BERT F Primary BERT Weber Jennifer [id number] [place] Insurance:MEDICARE GIAUQUEDOB: [facility] PART A BPolicy Number: [id number] [id number] Repository [address]Ebf: (439) Date:2017-05-12 [phone] (HP) 05/12/2017 Secondary NATIVIDAD J [place] Insurance:AULTCAREPoli GIAUQUEDOB: Community cy Number: [id number] Hospital [id number] Repository Date:9840-48-87MW [facility] [address] [place] [address]TG: 05/12/2017 Tertiary NOT GIVENUNK Jennifer Insurance:SELF PAY Community INSURANCEPolicy Hospital Number: Effective Repository Date:2017-05-12 03/21/2017 BERT F Primary BERT F Jennifer [id number] [place] Insurance:MEDICARE GIAUQUEDOB: [address] R[address]TE PART A BPolicy Number: [id number] [id number] Repository [id number]: [phone]) Date:2017-01-30 [phone] (HP) 03/21/2017 Secondary NATIVIDAD J [facility] Insurance:AULTCAREPoli GIAUQUEDOB: Community cy Number: [id number] [id number] Repository Date:[id number] [place] [id number]: 03/21/2017 Tertiary NOT GIVENUNK [facility] Insurance:SELF PAY [facility]: Effective Repository Date:2017-01-30
== END 2018-01-22 20:36 | disposition home or self-care (01) ==
PROVIDERS: Emergency Provider Emergency Medicine; Family Provider Family Medicine; PCP Family Medicine
DX: R07.9 Chest pain, unspecified (principal); B02.9 Zoster without complications; G30.9 Alzheimer's disease, unspecified; F02.80 Dementia in other diseases classified elsewhere, unspecified severity, without behavioral disturbance, psychotic disturbance, mood disturbance, and anxiety; I25.10 Atherosclerotic heart disease of native coronary artery without angina pectoris; I25.2 Old myocardial infarction; E11.9 Type 2 diabetes mellitus without complications; I48.91 Unspecified atrial fibrillation; E78.00 Pure hypercholesterolemia, unspecified; I51.7 Cardiomegaly; I10 Essential (primary) hypertension; Z86.73 Personal history of transient ischemic attack (TIA), and cerebral infarction without residual deficits; Z95.5 Presence of coronary angioplasty implant and graft; Z79.02 Long term (current) use of antithrombotics/antiplatelets; Z79.82 Long term (current) use of aspirin; Z79.84 Long term (current) use of oral hypoglycemic drugs; Z79.899 Other long term (current) drug therapy
CPT/HCPCS: 71045; 80048; 84484; 85025; 93005; 99284; J7030; A4216

== ENCOUNTER → 2018-03-19 14:56 | Outpatient (CLI) | payer MEDICARE, OTHER, SELFPAY ==
[2018-03-19 13:41] VITALS: BMI 27.3
--- NOTE | 2018-03-19 15:01 | ECHOD_ITS ---
Reason For Study: CHF Procedure This was a 2D Doppler, Color Flow transthoracic echocardiogram. The exam was of adequate technical quality. Exam performed in department. Left Ventricle Normal LV size. Mild segmental systolic dysfunction (see wall motion). The estimated ejection fraction is 45 %. Paced septal motion. Diastolic function is indeterminate. Posterior-Basal: Hypokinetic. Infero-Basal: Hypokinetic. Mid-Lateral : Hypokinetic. Mid-Posterior: Hypokinetic. Mid- Inferior: Hypokinetic. Lateral [place] : Hypokinetic. Right Ventricle Normal RV size. Normal systolic function. Atria The left atrium is moderately enlarged. Normal right atrium. No doppler evidence for ASD. Mitral Valve There is no mitral annular calcification. Normal mitral valve. Mild (1+) mitral valve insufficiency. Tricuspid Valve Normal tricuspid valve. Mild to moderate (1-2+) eccentric tricuspid valve insufficiency. Right ventricular systolic pressure estimated to be 31 mmHg. Aortic Valve Trisinus/trileaflet aortic valve. Mild focal aortic valve calcification. Pulmonic Valve The pulmonic valve is not well visualized. Mild (1+) pulmonic valve insufficiency. Great Vessels Normal sized aortic root. Pericardium/Pleural No pericardial effusion. MMode/2D Measurements & Calculations LVIDd: 5.6 cm IVSd: 1.3 cm Ao root diam: 3.7 cm LVIDs: 3.8 cm LVPWd: 1.2 cm RVDd: 3.1 cm FS: 32.7 % LAV(MOD-bp): 84.6 ml LA A4 area: 24.5 cm2 LA dimension(2D): 4.9 cm LAV(MOD-bp) Indexed: 37.9 ml/m2 LAV(MOD-sp2): 85.7 ml LAV(MOD-sp4): 80.7 ml RA A4 area: 18.4 cm2 Doppler Measurements & Calculations MV E max hemanth: 31.8 cm/sec Lat Peak E' Hemanth: 4.1 cm/sec Med Peak E' Hemanth: 4.3 cm/sec MV A max hemanth: 52.2 cm/sec E/E' lat: 7.8 E/E' med: 7.3 MV E/A: 0.61 Ao V2 max: 111.3 cm/sec LV V1 max: 71.5 cm/sec PA V2 max: 103.0 cm/sec Ao max P.0 mmHg LV V1 max P.0 mmHg PI end-d hemanth: 95.8 cm/sec TR max hemanth: 263.7 cm/sec TR max P.8 mmHg Interpretation Summary Mild segmental systolic dysfunction (see wall motion). The estimated ejection fraction is 45 %. Paced septal motion. The left atrium is moderately enlarged. Mild (1+) mitral valve insufficiency. Mild to moderate (1-2+) eccentric tricuspid valve insufficiency. Mild focal aortic valve calcification. Mild (1+) pulmonic valve insufficiency. Right ventricular systolic pressure estimated to be 31 mmHg. Diastolic function is indeterminate. Ordering Physician: Reuben Smith Referring Physician: Gaston Yip Performed By: Ivanna Morris RDCS, RVT
--- OUTSIDE RECORDS SUMMARY | 2018-05-22 03:15 | XMS RPT_ITS ---
:1940 Author Organization OHIP Support Name Relationship Address Phone TALIB RAMY Unavailable Unavailable + [place] [address] GIAUQUE, DARLETTA Unavailable [address] + [place] [address] R Unavailable Unavailable Unavailable MAYERS, RAMY Unavailable Unavailable + [place] [address] GIAUBRENNON, DARLETTA Unavailable [address] + [place] [address] R Unavailable Unavailable Unavailable MAYERS, RAMY Unavailable Unavailable + [place] [address] GIAUBRENNON, DARLETTA Unavailable [address] + [place] [address] R Unavailable Unavailable Unavailable GIAUQUE, DARLETTA Unavailable Unavailable + GIAUBRENNON, DARLETTA Unavailable Unavailable + GIAUQUE, DARLETTA Unavailable Unavailable + MAYERS, RAMY Unavailable . + [place] [address] LAWRENCE, DARLETTA Unavailable [address] + [place] [address] R Unavailable Unavailable Unavailable MAYERS, RAMY Unavailable . + [place] [address] GIAUQUE, DARLETTA Unavailable [address] + [place] [address] R Unavailable Unavailable Unavailable MAYERS, RAMY Unavailable Unavailable + [place] [address] GIAUQUE, DARLETTA Unavailable [address] + [place] [address] R Unavailable Unavailable Unavailable MAYERS, RAMY Unavailable Unavailable + [place] [address] GIAUBRENNON, DARLETTA Unavailable [address] + [place] [address] R Unavailable Unavailable Unavailable MAYERS, RAMY Unavailable . + [place] [address] GIAUBRENNON, DARLETTA Unavailable [address] + [place] [address] R Unavailable Unavailable Unavailable GIAUQUE, DARLETTA Unavailable Unavailable + GIAUBRENNON, DARLETTA Unavailable Unavailable + GIAUBRENNON, DARLETTA Unavailable Unavailable + GIAUBRENNON, DARLETTA Unavailable [address] + [place], [place] [id number] NOT GIVEN Unavailable Unavailable Unavailable GIAUQUE, DARLETTA Unavailable Unavailable + GIAUBRENNON, DARLETTA Unavailable Unavailable + GIAUBRENNON, DARLETTA Unavailable Unavailable + GIAUBRENNON, DARLETTA Unavailable Unavailable + GIAUBRENNON, DARLETTA Unavailable Unavailable + GIAUBRENNON, DARLETTA Unavailable Unavailable + GIRASHMI, DARLETTA Unavailable [address] + [place], [place] [id number] NOT GIVEN Unavailable Unavailable Unavailable GIAUQUE, DARLETTA Unavailable Unavailable + GIAUBRENNON, DARLETTA Unavailable Unavailable + GIAUBRENNON, DARLETTA Unavailable Unavailable + MAYERS, RAMY Unavailable . + [place] [address] GIAUQUE, DARLETTA Unavailable [address] + [place] [address] R Unavailable Unavailable Unavailable MAYERS, RAMY Unavailable . + [place] [address] GIAUBRENNON, DARLETTA Unavailable [address] + [place] [address] R Unavailable Unavailable Unavailable MAYERS, RAMY Unavailable Unavailable + [place] [address] GIAUQUE, DARLETTA Unavailable [address] + [place] [address] R Unavailable Unavailable Unavailable GIAUQUE, DARLETTA Unavailable [address] + [place] [address] R Unavailable Unavailable Unavailable GIAUQUE, DARLETTA Unavailable [address] + [place] [address] R Unavailable Unavailable Unavailable GIAUQUE, DARLETTA Unavailable [address] + [place] [address] R Unavailable Unavailable Unavailable GIAUQUE, DARLETTA Unavailable [address] + [place] [address] R Unavailable Unavailable Unavailable GIAUQUE, DARLETTA Unavailable [address] + [place] [address] R Unavailable Unavailable Unavailable GIAUQUE, DARLETTA Unavailable [address] + [place] [address] R Unavailable Unavailable Unavailable GIAUBRENNON, DARLETTA Unavailable [address] + [place] [address] R Unavailable Unavailable Unavailable GIAUQUE, DARLETTA Unavailable [address] + [place] [address] R Unavailable Unavailable Unavailable Care Team Providers Name Role Phone GASTON YIP Admitting Unavailable GASTON YIP Attending Unavailable GASTON YIP Primary Care Unavailable GASTON YIP Consulting Unavailable PROVIDER, UNKNOWN Consulting Unavailable PROVIDER, UNKNOWN Consulting Unavailable PROVIDER, UNKNOWN Consulting Unavailable HARSH FERNANDEZ M Admitting Unavailable HARSH FERNANDEZ M Attending Unavailable GASTON YIP Referring Unavailable HARSH FERNANDEZ Primary Care Unavailable GASTON YIP Consulting Unavailable PROVIDER, UNKNOWN Consulting Unavailable PROVIDER, UNKNOWN Consulting Unavailable PROVIDER, UNKNOWN Consulting Unavailable GASTON YIP MD Primary Care Unavailable ANDERSON PARTIDA MD Admitting Unavailable BOLIVAR LOOMIS Attending Unavailable LARA MENDEZ Consulting Unavailable GILL ALMAZAN, DR. HERNÁNDEZ Consulting Unavailable CORY LUQUE MD Consulting Unavailable DERICK KUNZ MD Consulting Unavailable JAM GOULD MD Consulting Unavailable QUINTIN NORTON MD Consulting Unavailable MILLER ACUÑA MD Consulting Unavailable LEXI ALMAZAN, DR. LOWERY Consulting Unavailable KENROY RICHARDS CNP Attending Unavailable GASTON YIP MD Primary Care Unavailable LARA MENDEZ Attending Unavailable GASTON YIP MD Primary Care Unavailable XAVIER BARNES, GASTON F Primary Care Unavailable ALFRED BARNES, MIN Admitting Unavailable ZINA RUSSELL, DR. KISER Attending Unavailable XAVIER BARNES, GASTON Weber Consulting Unavailable RADHA BARNES, KAI Consulting Unavailable SHY BARNES, ARI Consulting Unavailable LARA MENDEZ Consulting Unavailable TEZ BARNES., DR. MANNY Harvey Admitting Unavailable TEZ BARNES., DR. MANNY Harvey Attending Unavailable XAVIER BARNES, GASTON Weber Primary Care Unavailable RADHA BARNES, KAI Consulting Unavailable DUSTIN BARNES, GUADALUPE Kumar Consulting Unavailable Roof, Quintin H Attending Unavailable Brown, Gaston Referring Unavailable Roof, Quintin H Attending Unavailable Roof, Quintin H Referring Unavailable Brown, Gaston Primary Care Unavailable MoodisSloan acevedo Attending Unavailable Roof, Quintin H Referring Unavailable Brown, Gaston Primary Care Unavailable Roof, Quintin H Consulting Unavailable Ping Lopes Attending Unavailable Xavier, Gaston Referring Unavailable Brown, Gaston Primary Care Unavailable Ping Lopes Attending Unavailable Xavier, Gaston Referring Unavailable Brown, Gaston Primary Care Unavailable Roof, Quintin H Attending Unavailable Xavier, Gaston Referring Unavailable Brown, Gaston Primary Care Unavailable Jie Owens Attending Unavailable Jie Owens Referring Unavailable Sloan Rider Attending Unavailable Xavier, Gaston Referring Unavailable Ping Lopes Attending Unavailable Xavier, Gaston Referring Unavailable Nicolas, Yoan Chi Admitting Unavailable Nicolas, Yoan Chi Attending Unavailable Nicolas, Yoan Chi Referring Unavailable Brown, Gaston Primary Care Unavailable Brown, Gaston Primary Care Unavailable Paris Webb Attending Unavailable Sloan Rider Attending Unavailable Nicolas, Yoan Chi Referring Unavailable Ping Lopes Attending Unavailable Xavier, Gaston Referring Unavailable Yana Parr Attending Unavailable Sloan Rider Attending Unavailable Tasha Walls Referring Unavailable Xavier, Gaston Primary Care Unavailable Tasha Walls Attending Unavailable Brown, Gaston Referring Unavailable Brown, Gaston Primary Care Unavailable Ping Lopes Attending Unavailable Xavier, Gaston Referring Unavailable Brown, Gaston Primary Care Unavailable MoodSloan moeller Attending Unavailable Nicolas, Yoan Chi Referring Unavailable Roof, Quintin H Attending Unavailable PROBLEMS PROBLEMS DATE TYPE CONDITION / CODE ATTENDING STATUS SOURCE 03/19/2018 Unknown I25.10 - Roof, Quintin Barnes Active [facility] Atherosclerotic heart [facility] disease of [facility] coronary artery Repository without angina pectoris / I25.10(ICD-10) 03/19/2018 Unknown I25.5 - Ischemic Roof, Quintin Barnes Active [facility] cardiomyopathy / Community I25.5(ICD-10) Hospital Repository 03/19/2018 Unknown Z95.0 - Presence of RoofQuintin Active [facility] cardiac pacemaker / Community Z95.0(ICD-10) Hospital Repository 03/19/2018 Unknown E78.5 - RoofQuintin Active [facility] Hyperlipidemia, Community unspecified / Hospital E78.5(ICD-10) Repository 03/19/2018 Unknown E78.2 - Mixed RoofQuintin Active [facility] hyperlipidemia / Community E78.2(ICD-10) Hospital Repository 03/19/2018 Unknown Z79.899 - Other long RoofQuintin Active [facility] term (current) drug Community therapy / Hospital Z79.899(ICD-10) Repository 02/19/2018 Unknown I50.32 - Chronic Moodispaw, Sloan Active [facility] diastolic Community (congestive) heart Hospital failure / Repository I50.32(ICD-10) 02/19/2018 Unknown I48.2 - Chronic Moodispaleon, Sloan Active [facility] atrial fibrillation / Community I48.2(ICD-10) Hospital Repository 02/19/2018 Unknown I11.0 - Hypertensive Moodispaw, Sloan Active [facility] heart disease with Community heart failure / Hospital I11.0(ICD-10) Repository 03/20/2018 Unknown R07.9 - Chest pain, Tracey Paris Active [facility] unspecified / Community R07.9(ICD-10) Hospital Repository 02/01/2018 Unknown I25.2 - Old Moodispaleon, Sloan Active [facility] myocardial infarction Community / I25.2(ICD-10) Hospital Repository 02/01/2018 Unknown I48.91 - Unspecified Moodispaw, Sloan Active [facility] atrial fibrillation / Community I48.91(ICD-10) Hospital Repository 02/05/2018 Unknown R53.81 - Other Nicolas, Yoan Chi Active [facility] malaise / Community R53.81(ICD-10) Hospital Repository 02/05/2018 Unknown R41.841 - Cognitive Nicolas, Yoan Chi Active [facility] communication deficit Community / R41.841(ICD-10) Hospital Repository 12/20/2017 Unknown I48.1 - Persistent Moodispaw, Sloan Active [facility] atrial fibrillation / Community I48.1(ICD-10) Hospital Repository 12/20/2017 Unknown I10 - Essential Moodispaw, Sloan Active [facility] (primary) [facility] hypertension / Hospital I10(ICD-10) Repository 09/20/2017 Unknown R82.99 - Other Jie Owens Active [facility] abnormal findings in [facility] urine / Hospital R82.99(ICD-10) Repository PROCEDURES PROCEDURES No Procedure Records FoundRESULTS RESULTS ECHOCARDIOGRAM COMPLETE Observed: 03/19/2018 Status: F Source: [place] 5:10 PM [facility] REPOSITORY [facility] Cardiovascular Services [address] [place] [address] Echo Complete 03/19/18 1505 MR#: [id number] Acct: [id number] Name: BERT BRAVO Rep #: [id number] : 1940 78 From: Sloan Rider MD Attending Dr: Quintin Smith, VC++ DEVELOPER Status: REG CLI Ordering Dr: Quintin Smith VC++ DEVELOPER-C Date: 03/19/18 Location: [facility] Sex: M C Admitted: Reason For Study: CHF Procedure This was a 2D Doppler, Color Flow transthoracic echocardiogram. The exam was of adequate technical quality. Exam performed in department. Left Ventricle Normal LV size. Mild segmental systolic dysfunction (see wall motion). The estimated ejection fraction is 45 %. Paced septal motion. Diastolic function is indeterminate. Posterior-Basal: Hypokinetic. Infero-Basal: Hypokinetic. Mid-Lateral : Hypokinetic. Mid-Posterior: Hypokinetic. Mid- Inferior: Hypokinetic. Lateral Jackson : Hypokinetic. Right Ventricle Normal RV size. Normal systolic function. Atria The left atrium is moderately enlarged. Normal right atrium. No doppler evidence for ASD. Mitral Valve There is no mitral annular calcification. Normal mitral valve. Mild (1+) mitral valve insufficiency. Tricuspid Valve Normal tricuspid valve. Mild to moderate (1-2+) eccentric tricuspid valve insufficiency. Right ventricular systolic pressure estimated to be 31 mmHg. Aortic Valve Trisinus/trileaflet aortic valve. Mild focal aortic valve calcification. Pulmonic Valve The pulmonic valve is not well visualized. Mild (1+) pulmonic valve insufficiency. Great Vessels Normal sized aortic root. Pericardium/Pleural No pericardial effusion. MMode/2D Measurements AND Calculations LVIDd: 5.6 cm IVSd: 1.3 cm Ao root diam: 3.7 cm LVIDs: 3.8 cm LVPWd: 1.2 cm RVDd: 3.1 cm FS: 32.7 % LAV(MOD-bp): 84.6 ml LA A4 area: 24.5 cm2 LA dimension(2D): 4.9 cm LAV(MOD-bp) Indexed: 37.9 ml/m2 LAV(MOD-sp2): 85.7 ml LAV(MOD-sp4): 80.7 ml RA A4 area: 18.4 cm2 Doppler Measurements AND Calculations MV E max german: 31.8 cm/sec Lat Peak E' German: 4.1 cm/sec Med Peak E' German: 4.3 cm/sec MV A max german: 52.2 cm/sec E/E' lat: 7.8 E/E' med: 7.3 MV E/A: 0.61 Ao V2 max: 111.3 cm/sec LV V1 max: 71.5 cm/sec PA V2 max: 103.0 cm/sec Ao max P.0 mmHg LV V1 max P.0 mmHg PI end-d germna: 95.8 cm/sec TR max german: 263.7 cm/sec TR max P.8 mmHg Interpretation Summary Mild segmental systolic dysfunction (see wall motion). The estimated ejection fraction is 45 %. Paced septal motion. The left atrium is moderately enlarged. Mild (1+) mitral valve insufficiency. Mild to moderate (1-2+) eccentric tricuspid valve insufficiency. Mild focal aortic valve calcification. Mild (1+) pulmonic valve insufficiency. Right ventricular systolic pressure estimated to be 31 mmHg. Diastolic function is indeterminate. Ordering Physician: Quintin Smith Referring Physician: Gaston Yip Performed By: Ivanna Morris, MARIA, RVT 03/19/181709 Date Sloan Rider MD CC: ROHIT Smith; Gaston Yip MD Date Dictated: 03/19/18 1505 Date Transcribed: 03/19/181709 Director Of Digital Platforms: Signed CARDIOLOGY VISIT Observed: 03/19/2018 Status: F Source: CENTER REPORT 3:37 PM [facility] REPOSITORY [facility] [address] [place], [place] [address]. [address] [place] [address] OFFICE VISIT Date of Service: 03/19/18 MR#: [id number] Acct: [id number] Name: BERT BRAVO Rep #: [id number] : 1940 Provider: ROHIT Smith Age/Sex: 78/M Location: [facility] Status: Signed HPI HPI Details: BERT BRAVO, is a 78 M who presents to the office today for a cardiovascular outpatient follow-up. He has a history of coronary artery disease status post stenting to RCA, LCx, and OM in April and May 2014. He underwent angioplasty without stenting on 01/12/2018 at [facility] to OM#1. He also has a history of ischemic cardiomyopathy, conduction system abnormality, status post permanent pacemaker placement, hyperlipidemia, and Normal Pressure Hydocephalus with conservative medical management. He is currently doing PT at home. His chest pain has located to LUQ and appears consistent with previous diagnosis/placement of shingles. His SOB has been stable. His dizziness is unchanged. He has had one fall since home from TCU. No bilateral edema, but is noted in right leg, from previous fracture. There is no orthopnea, PND, blood in urine, blood in stool. His energy level is improving. Daughter states that they underwent CT scan. Pending appointment on 03/29/2018 for further follow-up/results. After the appointment with neurology further decision regarding shunt surgery will be made. 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 Required: No Accompanied by: Daughter Is patient in pain?: No Allergies citalopram [From Celexa] Adverse Reaction (Intermediate, Verified 03/19/18 13:48) Unknown isosorbide [From Imdur] Adverse Reaction (Verified 03/19/18 13:48) Low blood pressure lisinopril Adverse Reaction (Verified 03/19/18 13:48) Low blood pressure Medications aspirin 81 mg tablet,delayed release 81 mg PO QHS tab 05/16/17 [History Confirmed 03/19/18] furosemide 20 mg tablet 20 mg PO QDAY PRN 05/16/17 [History Confirmed 03/19/18] nitroglycerin 0.4 mg sublingual tablet 0.4 mg SUBLINGUAL Q5M PRN 05/16/17 [History Confirmed 03/19/18] multivitamin tablet 1 tab PO QDAY 09/12/17 [History Confirmed 03/19/18] vitamin E (dl, acetate) 400 unit capsule 400 unit PO QDAY 09/12/17 [History Confirmed 03/19/18] Menthol/Lanolin/Calamine/Znox [Calmoseptine Ointment] 1 applic TOPICAL TID 01/18/18 [History Confirmed 03/19/18] Metoprolol Tartrate 25 mg PO BID 01/18/18 [History Confirmed 03/19/18] Polyethylene Glycol 3350 [Miralax] 17 gm PO DAILY 01/18/18 [History Confirmed 03/19/18] Acetaminophen [Tylenol Extra Strength] 1,000 mg PO Q6H PRN PRN 01/22/18 [History Confirmed 03/19/18] Atorvastatin Calcium [Lipitor] 40 mg PO QHS tab 02/01/18 [Rx Confirmed 03/19/18] Hydrocortisone 2.5% Crm [Hytone] 1 applic TOPICAL TID PRN PRN tube 02/01/18 [Rx Confirmed 03/19/18] Ketoconazole 10 ml TP Q48H PRN shampoo 02/01/18 [Rx Confirmed 03/19/18] Mirtazapine [Remeron] 15 mg PO QHS #30 tab 02/01/18 [Rx Confirmed 03/19/18] Pantoprazole Sodium [Protonix] 40 mg PO DAILY #30 tab 02/05/18 [Rx Confirmed 03/19/18] antiarthritic combination no.2 900 mg tablet mg PO tab 03/19/18 [History Confirmed 03/19/18] metformin 500 mg tablet 500 mg PO DAILY tab 03/19/18 [History Confirmed 03/19/18] tramadol 50 mg tablet 100 mg PO Q4H PRN tab 03/19/18 [History] Ejection fraction %: 45 to 49 PFSH Medical History Chest pain (Chronic) Debility (Acute) Herpes zoster (Acute) Diabetes mellitus (Chronic) Coronary artery disease (Chronic) Stroke (Chronic) Alzheimer's disease (Chronic) Depression (Chronic) Atrial fibrillation (Chronic) Hypertension (Chronic) Atherosclerotic heart disease of [place] coronary artery without angina pectoris (Chronic) Stroke determined by clinical assessment (Chronic) Hyperlipidemia (Chronic) Non-ST elevation (NSTEMI) myocardial infarction (Chronic) Diastolic dysfunction (Chronic) 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 (Chronic) Ischemic cardiomyopathy (Chronic) Second degree atrioventricular block (Chronic) H/O: stroke (Chronic) H/O myocardial infarction, greater than 8 weeks (Chronic) Diabetes type 2, uncontrolled (Chronic) Dementia (Chronic) Pressure ulcer of right buttock, stage 1 (Acute) Pressure ulcer of left buttock, stage 1 (Acute) Depression (Acute) 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) Surgical History Presence of other cardiac implants and grafts (Chronic) Presence of cardiac pacemaker (Chronic) Family History Other Heart disease Social History Smoking Status: Never smoker alcohol intake: never caffeine: Yes Type: coffee Number of servings: 2 ROS Const Const: Positive for fatigue (improving), weakness and frequent falls (1 fall); negative for weight gain, weight loss or excessive sweating Eyes Eyes: Negative for change in vision or transient loss of vision ENT ENT: Positive for dizziness (HX NPH) and balance problems Cardio Chest Pain: No Palpitations: No Edema: Right Muscle aches with walking: Bilateral Additional Details: Resp Respiratory: Positive for SOB with activity; negative for SOB at rest, SOB orthopnea\SOB lying down, Cough or paroxysmal nocturnal dyspnea GI GI: Negative vomiting, vomiting blood/hematemesis or nausea : Negative for hematuria Musc Musc: Positive for balance problems Skin Skin: Negative non-healing lesions or rash Neuro Neuro: Positive for weakness, dizziness (HX NPH) and frequent falls (1 fall); negative for lightheadedness, near syncope or syncope Phi Hematologic/Lymphatic: Negative for easy bleeding Endo Endo: Positive for fatigue (improving); negative for excessive sweating Psych Psych: Negative for anxiety or depression Allergy Allergy/Immunology: Negative for rash Cardiology Exam Const Appearance: no acute distress, other (examined in the wheelchair), lethargic, comfortable and healthy appearing Nutritional Appearance: overweight and well nourished Orientation: alert and awake Head Head: normal to inspection Ears: hearing [...] Left, Trace: Bilateral Psych Psychological: normal affect Assessment AND Plan 1. Atherosclerosis of [place] coronary artery of [place] heart without angina pectoris I25.10 S/P RCA, LCX, and OM PTCA/SARKIS in April and May of 2014; PTCA/ballooning to OM1 at [facility] in December 2017; Plan He is status post recent PTCA (no stenting) at [facility] in December 2017. During that time he was admitted twice. One echocardiogram showed a normal ejection fraction and second echocardiogram showed a reduced ejection fraction, which led to ballooning. His chest pain appears more consistent with previous shingles location (LUQ). Due to financial concerns his Ranexa was discontinued. Daughter denies any noted chest pain. At this time, he will continue with current medications and we will continue to monitor. Orders Orders: 2. Ischemic cardiomyopathy I25.5 Plan His most recent echocardiogram at [facility] showed reduced ejection fraction. Because he will possibly undergo upcoming shunt surgery, he will undergo an echocardiogram to assess ejection fraction. Hopefully with improvement in overall symptoms and PTCA his ejection fraction is also improved. This will help guide surgery decisions medication adjustments. He has been intolerant to ORION inhibitor/lisinopril in the past due to low blood pressure. In the interim, he will continue with beta-yarelis and as needed diuretic. Further recommendation will be made based on results of his echocardiogram. Orders Orders: 3. Presence of cardiac pacemaker Z95.0 Pacemaker implant 05/15/14 Plan Patient's pacemaker/ICD appears to be functioning appropriately. We will continue to monitor this with routine/scheduled follow-ups. Orders Orders: 4. Mixed hyperlipidemia E78.2 Plan Lipid panel from April 2017 showed cholesterol: 135, HDL: 56, LDL: 61, and triglycerides: 89. He will continue with current statin medication. 5. 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 Z79.899 Plan Patient is currently pending results of CT scan. Assuming that the stability from a bleed standpoint or calcium buildup will be discussed with Dr. Rider regarding starting antiplatelet/Plavix therapy prior to shunt surgery. Plan Detail Other Orders Orders: Other Medications Discontinued: polyethylene glycol 3350 Discontinued Reason: Pt no longer t17 GM PO MoWeFr@1000 0RF aking Additional Comments Thank you for allowing us [...] of Care Code Off vis,est,level 4 Diagnoses Atherosclerosis of [place] coronary artery of [place] heart without angina pectoris I25.10 [place] vs. transplanted heart: [place] heart Ischemic cardiomyopathy I25.5 Presence of cardiac pacemaker Z95.0 Mixed hyperlipidemia E78.2 Hyperlipidemia type: mixed hyperlipidemia 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 Z79.899 Coding Level of Care Code Off vis,est,level 4 Diagnoses Atherosclerosis of [place] coronary artery of [place] heart without angina pectoris I25.10 [place] vs. transplanted heart: [place] heart Ischemic cardiomyopathy I25.5 Presence of cardiac pacemaker Z95.0 Mixed hyperlipidemia E78.2 Hyperlipidemia type: mixed hyperlipidemia Other chcf (current) drug therapy Z79.899 Supplemental Info Supplemental Information Transthoracic echocardiogram: 12/29/2017 [facility]: Summary: Mildly increased left ventricle wall thickness, [...] an LVEF of 41%. 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 Name: Darlene ARGUETA Model #: [id number] Serial #: [id number] Date Implanted: 05/13/2014 Device Characteristics Device: Dual Chamber Type: Pacemaker Remote:[employer] Patient Characteristics AV Node Indication: Second degree AV block Patient Substrate: symptomatic bradycardia Pacemaker Dependent: No Remote pacemaker check November 2017 showed no MS episodes, no AT/AF episode, no VHR episodes, presenting rhythm is AV sequential paced at 60 ppm, JUNIOR SYSTEMS ENGINEER=97%, and estimated battery life 8.5 2.8 years. Labs LDL Cholesterol 61 mg/dL (0-130) 05/18/17 HDL Cholesterol 56 mg/dL (40-) 05/18/17 Triglycerides 89 mg/dL (-199) 05/18/17 VLDL Cholesterol 18 mg/dL (5-40) 05/18/17 Diagnostics Electrocardiogram 01/28/18 Echocardiogram 11/13/14 Stress Test Nuclear Medicine 11/13/14 Pacemaker Check 09/12/17 Chest X-Ray 01/22/18 03/19/18 1537 <Electronically signed by Quintin PASCUAL> Date Quintin PASCAUL Cosigner Signature: Date (if applicable) CC: Gaston Yip MD CT HEAD OR BRAIN W/ + Observed: 03/06/2018 Status: F Source: [facility] W/O CONTRAST 1:00 PM [facility]ATION REPOSITORY ORIGINAL CLINICAL HISTORY: INTRACRANIAL HEMORRHAGE TECHNIQUE: Axial CT images from skull base to vertex with and without IV contrast. This exam was performed according to our departmental dose optimization program, and includes the following measures wh ere applicable: automated exposure control, adjustment of the mAs and/or kVp according to patient size and/or exam, and an iterative reconstruction algorithm. COMPARISON: CT head, 01/09/2018, 12/29/2017. FINDINGS: There is no evidence of mass, midline shift, hemorrhage, or infarct. Although the brain morphology appears normal, the ventricles, cortical sulci, and subarachnoid cisterns appear prominent. T here are no extra-axial fluid collections. No regions of pathologic attenuation are evident. Redemonstration of the parenchymal calcification within the RIGHT parietal lobe adjacent to the posterior hor n of the lateral ventricle, unchanged from prior. After the administration of IV contrast, no evidence of suspicious enhancing lesion. Intracranial vasculature is grossly normal. Regions of the orbits a nd paranasal sinuses included within the field of view are unremarkable. There is no displaced fracture or osseous neoplasm. The extracalvarial soft tissues appear unremarkable. IMPRESSION: 1. No acute intracranial pathology. 2. Prominent CSF spaces usually indicate volume loss/atrophy as a manifestation of chronic severe white matter ischemia. 3. Stable appearance of the parenchymal calcification of the RIGHT parietal lobe. COMMENT: Changes resultant from ischemia (even significant ischemia) may often be inapparent on CT exam, particularly if imaged early. Additionally, early changes due to neoplastic or inflammatory proce sses can be subtle to the extent that they are not prospectively noted. Therefore, if symptoms persist, or clinical suspicion for pathology remains, further evaluation may be obtained with MRI. Interpreted By: Bakari Crain Preliminary Report By: Bakari Crain Electronically Signed By: Bakari Crain Dictated Date: 03/06/2018 11:40:41 PM Prelim Date: 03/06/2018 11:40:41 PM Sign Date: 03/06/2018 11:49:00 PM CARDIOLOGY VISIT Observed: 02/05/2018 Status: F Source: CENTER REPORT 4:23 PM [facility] REPOSITORY [facility] [address] [place] [address]. [address] [place] [address] OFFICE VISIT Date of Service: 02/01/18 MR#: [id number] Acct: [id number] Name: BERT BRAVO Rep #: [id number] : 1940 Provider: ROHIT Smith Age/Sex: 77/M Location: [facility] Status: Signed HPI HPI Chief Complaint: debility Details: BERT BRAVO, is a 77 M who presents to the office today for a cardiovascular outpatient follow-up. He has a history of coronary artery disease status post stenting to RCA, LCx, and OM in April and May 2014. He underwent angioplasty without stenting on 01/12/2018 at [facility] to OM#1. He also has a history of ischemic cardiomyopathy, conduction system abnormality, status post permanent pacemaker placement, hyperlipidemia, and Normal Pressure Hydocephalus with conservative medical management. Recently evaluated [facility] in December 2017 for two admissions. He [...] an outpatient. Patient is currently residing in [facility]. He was evaluated in the emergency department [...] future or if still needed. 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 [place] Name: Darlene Model #: [id number] Serial #: [id number] Date Implanted: 05/13/2014 Device Characteristics Device: Dual Chamber Type: Pacemaker Remote:Porter.NET Patient Characteristics AV Node Indication: Second degree AV block Patient Substrate: symptomatic bradycardia Pacemaker Dependent: No Remote pacemaker check November 2017 showed no MS episodes, no AT/AF episode, no VHR episodes, presenting rhythm is AV sequential paced at 60 ppm, JUNIOR SYSTEMS ENGINEER=97%, and estimated battery life 8.5 2.8 years. Assessment AND Plan 1. Chest pain, unspecified type R07.9 Plan Patient has been evaluated at [facility] and [facility] emergency department for this. His hospitalization at [place] included 2 echocardiograms, stress test, and heart [...] mg twice daily. Thus, patient's reports from [facility] will be requested for review and further consideration for medication adjustment of Ranexa and/or addition of Norvasc will be considered. 2. Atherosclerosis of [place] coronary artery of [place] heart without angina pectoris I25.10 S/P RCA, LCX, and OM PTCA/SARKIS in April and May of 2014; PTCA/ballooning to OM1 at [facility] in December 2017; Plan Patient is status post stenting in 2014 and most recently ballooning to OM1 in December 2017. It is unclear if patient's current chest pain is related to cardiac in origin. At this time, his records from [facility] will be requested for detailed review. He will continue with current low-dose beta-yarelis. 3. Ischemic cardiomyopathy I25.5 Plan His echocardiogram from 12/29/2017 showed ejection fraction of 55-60%. However, daughter states that during his second admission at [facility] his ejection fraction was reduced. This [...] is AV sequential paced at 60 ppm, JUNIOR SYSTEMS ENGINEER=97%, and estimated battery life 8.5 2.8 years. [...] will continue with current statin medication. 7. correction (current) use of antithrombotics/antiplatelets Z79.02 Plan Patient's [...] R07.9 Chest pain type: unspecified Atherosclerosis of [place] coronary artery of [place] heart without angina pectoris I25.10 [place] vs. transplanted heart: [place] heart Ischemic cardiomyopathy I25.5 Presence of cardiac pacemaker Z95.0 Essential hypertension I10 Hypertension type: essential hypertension Mixed hyperlipidemia E78.2 Hyperlipidemia type: mixed hyperlipidemia correction (current) use of antithrombotics/antiplatelets Z79.02 Coding Level of Care Code Off vis,est,level 3 Diagnoses Chest pain, unspecified type R07.9 Chest pain type: unspecified Atherosclerosis of [place] coronary artery of [place] heart without angina pectoris I25.10 [place] vs. transplanted heart: [place] heart Ischemic cardiomyopathy I25.5 Presence of cardiac pacemaker Z95.0 Essential hypertension I10 Hypertension type: essential hypertension Mixed hyperlipidemia E78.2 Hyperlipidemia type: mixed hyperlipidemia correction (current) use of antithrombotics/antiplatelets Z79.02 02/05/18 1623 <Electronically signed by Quintin PASCUAL> Date Quintin PASCUAL Cosigner Signature: Date (if applicable) CC: BEDSIDE GLUCOSE Collected: 02/05/2018 Status: F Source: JENNIFER 6:38 AM [facility] REPOSITORY TYPE CODE TESTS RESULT OUT OF REFERENCE UNITS RANGE LAB L501.080 70-110 mg/dL High BEDSIDE GLU 111 Result Comment: MANAGEMENT OF PATIENT CARE PER NURSING PROTOCOL Performed By: #### L501.080 #### [facility] Point of Care [address] [place] [address] BEDSIDE GLUCOSE Collected: 02/04/2018 Status: F Source: JENNIFER 6:43 AM [facility] REPOSITORY TYPE CODE TESTS RESULT OUT OF REFERENCE UNITS RANGE LAB L501.080 70-110 mg/dL High BEDSIDE GLU 121 Result Comment: MANAGEMENT OF PATIENT CARE PER NURSING PROTOCOL Performed By: #### L501.080 #### [facility] Point of Care [address] [place] [address] BEDSIDE GLUCOSE Collected: 02/03/2018 Status: F Source: JENNIFER 6:45 AM [facility] REPOSITORY TYPE CODE TESTS RESULT OUT OF REFERENCE UNITS RANGE LAB L501.080 70-110 mg/dL High BEDSIDE GLU 140 Result Comment: MANAGEMENT OF PATIENT CARE PER NURSING PROTOCOL Performed By: #### L501.080 #### [facility] Point of Care [address] [place] [address] BEDSIDE GLUCOSE Collected: 02/02/2018 Status: F Source: JENNIFER 6:57 AM [facility] REPOSITORY TYPE CODE TESTS RESULT OUT OF REFERENCE UNITS RANGE LAB L501.080 70-110 mg/dL High BEDSIDE GLU 134 Result Comment: MANAGEMENT OF PATIENT CARE PER NURSING PROTOCOL Performed By: #### L501.080 #### [facility] Point of Care [address] [place] [address] BASIC METABOLIC Collected: 02/02/2018 Status: F Source: JENNIFER PROFILE (BMP) 5:15 AM [facility] REPOSITORY TYPE CODE TESTS RESULT OUT OF [...] By: #### L500.2500, L001.0705, L501.1800, L506.0500 #### [facility] [address] [facility]. [place], [place], [id number] PROTEIN, TOTAL Collected: 02/02/2018 Status: F Source: CENTER 5:15 AM [facility] REPOSITORY TYPE CODE TESTS RESULT OUT OF RANGE REFERENCE UNITS LAB L501.1500 6.4-8.2 g/dL Normal T PROT 6.6 LAB L501.1950 2.2-4.2 g/dL Normal GLOB 3.4 LAB L501.2000 0.9-2.4 RATIO Normal A/G 0.9 Performed By: #### L500.2500, L001.0705, L501.1800, L506.0500 #### [facility] [address] [facility]. [place], [place], [address] ALBUMIN, SERUM Collected: 02/02/2018 Status: F Source: CENTER 5:15 AM [facility] REPOSITORY TYPE CODE TESTS RESULT OUT OF RANGE REFERENCE UNITS LAB L501.1800 3.2-5.0 g/dL Normal ALB 3.2 Performed By: #### L500.2500, L001.0705, L501.1800, L506.0500 #### [facility] [address] [place], [address] PREALBUMIN Collected: 02/02/2018 Status: F Source: CENTER 5:15 AM [facility] REPOSITORY TYPE CODE TESTS RESULT OUT OF RANGE REFERENCE UNITS LAB L506.0500 20.0-40.0 mg/dL Normal PREALBUMIN 27.2 Performed By: #### L500.2500, L001.0705, L501.1800, L506.0500 #### [facility] [address] [facility] [place], [address] CBC W/DIFF, AUTOMATED Collected: 02/02/2018 Status: F Source: CENTER 5:15 AM [facility] REPOSITORY TYPE CODE TESTS RESULT OUT OF [...] Lymph 2.20 Performed By: #### L100.0100 #### [facility] [address] [facility] [place], [address] HOME HEALTH PROGRESS Observed: 02/01/2018 Status: F Source: CENTER NOTE 9:23 PM [facility] REPOSITORY [facility] Medical Records Department [address] [place] [address] Home Health Progress Note [id number] Encounter Encounter Date: 02/01/182121 MR#: [id number] Acct: [id number] Name: BERT BRAVO Rep #: [id number] : 1940 77 From: Yoan Valenzuela MD PCP: Gaston Yip MD Status: ADM IN Location: [place] [address] Home Health Note - Plan Overview of reason of hospitalization: The patient is a 77 year old Male with below past medical history admitted from home with debility secondary herpes zoster, to [facility] for rehabilitation, strengthening, prior to discharge home [...] (Chronic) Hypertension (Chronic) Atherosclerotic heart disease of [place] coronary artery without angina pectoris (Chronic) Stroke determined by clinical assessment (Chronic) Hyperlipidemia (Chronic) Presence of other cardiac implants and grafts (Chronic) Non-ST elevation (NSTEMI) myocardial infarction (Chronic) Diastolic dysfunction (Chronic) 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 (Chronic) Ischemic cardiomyopathy (Acute) [...] DISCHARGE SUMMARY Observed: 02/01/2018 Status: F Source: JENNIFER 9:22 PM [facility] REPOSITORY [facility] Medical Records Department [address] [place] [address] Discharge Summary 02/01/182119 MR#: [id number] Acct: [id number] Name: BERT BRAVO Rep #: [id number] : 1940 77 From: Yoan Valenzuela MD PCP: Gaston Yip MD Status: ADM IN Location: [place] [address] Discharge Date and Diagnosis - Problem List Patient Problems: Active and Suspected Problems (Last Updated 02/01/18 @ 15:22 by Sandra Moody) Debility (Acute) Herpes zoster (Acute) Date of [...] (Chronic) Hypertension (Chronic) Atherosclerotic heart disease of [place] coronary artery without angina pectoris (Chronic) S/P RCA, LCX, and OM PTCA/SARKIS in April and May of 2014; Stroke determined by clinical assessment (Chronic) Hyperlipidemia (Chronic) Presence of other cardiac implants and grafts (Chronic) Staged PCI done 05/15/14 to RCA AND then readmitted 05/26/14 for acute coronary syndrome-PCI completed 05/28/14 Non-ST elevation (NSTEMI) myocardial infarction (Chronic) Diastolic dysfunction (Chronic) Other chcf (current) drug therapy (Chronic) Second degree atrioventricular [...] DISCHARGE INSTRUCTION Observed: 02/01/2018 Status: F Source: JENNIFER 9:20 PM [facility] REPOSITORY [facility] Medical Records Department [address] [place] [address] Instructions for Home/Discharge Instructions 02/01/182118 MR#: [id number] Acct: [id number] Name: BERT BRAVO Rep #: [id number] : 1940 77 From: Yoan Valenzuela MD [...] LEAD ELECTROCARDIOGRAM Observed: 02/01/2018 Status: F Source: JENNIFER 3:17 PM [facility] REPOSITORY [facility] Cardiovascular Services [address] [place] [address] 12 Lead EKG 01/28/18 0006 MR#: [id number] Acct: [id number] Name: BERT BRAVO Rep #: [id number] : 1940 77 From: Sloan Rider MD Attending Dr: Nicolas BARENS,Yoan Hamm Status: ADM IN Ordering Dr: Yoan Valenzuela MD Date: 01/28/18 Location: [facility] Sex: M C Admitted: 01/18/18 Test Reason : CP Blood Pressure : / mmHG Vent. Rate : 071 BPM Atrial Rate : 071 BPM P-R Int : 168 ms QRS Dur : 188 ms QT Int : 470 ms P-R-T Axes : -13 250 048 degrees QTc Int : 510 ms Electronic ventricular pacemaker Confirmed by ADRY BARNES, SLOAN ([id number]), order editor MARSHA RICHARDS ([id number]) on 02/01/2018 3:17:39 PM Referred By: Yoan Valenzuela Confirmed By:SLOAN RIDER MD 02/01/18 1517 Date Sloan Rider MD CC: Gaston Yip MD; Yoan Valenzuela MD Signed BEDSIDE GLUCOSE Collected: 02/01/2018 Status: F Source: JENNIFER 6:39 AM [facility] REPOSITORY TYPE CODE TESTS RESULT OUT OF REFERENCE UNITS RANGE LAB L501.080 70-110 mg/dL High BEDSIDE GLU 118 Result Comment: MANAGEMENT OF PATIENT CARE PER NURSING PROTOCOL Performed By: #### L501.080 #### [facility] Point of Care [address] [place] [address] BEDSIDE GLUCOSE Collected: 01/31/2018 Status: F Source: JENNIFER 6:38 AM [facility] REPOSITORY TYPE CODE TESTS RESULT OUT OF REFERENCE UNITS RANGE LAB L501.080 70-110 mg/dL High BEDSIDE GLU 145 Result Comment: MANAGEMENT OF PATIENT CARE PER NURSING PROTOCOL Performed By: #### L501.080 #### [facility] Point of Care [address] [place] [address] BEDSIDE GLUCOSE Collected: 01/30/2018 Status: F Source: CENTER 6:40 AM [facility] REPOSITORY TYPE CODE TESTS RESULT OUT OF REFERENCE UNITS RANGE LAB L501.080 70-110 mg/dL High BEDSIDE GLU 171 Result Comment: MANAGEMENT OF PATIENT CARE PER NURSING PROTOCOL Performed By: #### L501.080 #### [facility] Point of Care [address] [place] [address] BEDSIDE GLUCOSE Collected: 01/29/2018 Status: F Source: JENNIFER 6:40 AM [facility] REPOSITORY TYPE CODE TESTS RESULT OUT OF REFERENCE UNITS RANGE LAB L501.080 70-110 mg/dL High BEDSIDE GLU 167 Result Comment: MANAGEMENT OF PATIENT CARE PER NURSING PROTOCOL Performed By: #### L501.080 #### [facility] Point of Care [address] [place] [address] BEDSIDE GLUCOSE Collected: 01/28/2018 Status: F Source: JENNIFER 7:53 AM [facility] REPOSITORY TYPE CODE TESTS RESULT OUT OF REFERENCE UNITS RANGE LAB L501.080 70-110 mg/dL High BEDSIDE GLU 158 Result Comment: MANAGEMENT OF PATIENT CARE PER NURSING PROTOCOL Performed By: #### L501.080 #### [facility] Point of Care [address] [place] [address] BEDSIDE GLUCOSE Collected: 01/27/2018 Status: F Source: JENNIFER 7:02 AM [facility] REPOSITORY TYPE CODE TESTS RESULT OUT OF REFERENCE UNITS RANGE LAB L501.080 70-110 mg/dL High BEDSIDE GLU 136 Result Comment: MANAGEMENT OF PATIENT CARE PER NURSING PROTOCOL Performed By: #### L501.080 #### [facility] Point of Care [address] [place] [address] 12 LEAD EKG W/ Observed: 01/26/2018 Status: F Source: JENNIFER RHYTHM STRIP 9:28 AM [facility] REPOSITORY [facility] Cardiovascular Services [address] [place] [address] 12 Lead EKG with Rhythm Strip 01/22/18 1531 MR#: [id number] Acct: [id number] Name: BERT BRAVO Rep #: [id number] : 1940 77 From: Sloan Rider MD Attending Dr: Yoan Valenzuela MD, Chi Status: ADM IN Ordering Dr: Yoan Valenzuela [...] ventricular pacemaker Confirmed by ADRY BARNES, SLOAN ([id number]), order editor HAROLDO VELAZQUEZ ([id number]) on 01/24/2018 4:27:26 PM Referred By: Yoan Valenzuela Confirmed By:SLOAN RIDER MD 01/24/18 1627 Date Sloan Rider MD CC: Gaston Yip MD; Yoan Valenzuela MD Signed 12 LEAD ELECTROCARDIOGRAM Observed: 01/26/2018 Status: F Source: JENNIFER 9:28 AM [facility] REPOSITORY [facility] Cardiovascular Services [address] [place] [address] 12 Lead EKG 01/22/18 1626 MR#: [id number] Acct: [id number] Name: BERT BRAVO Rep #: [id number] : 1940 77 From: Sloan Rider MD [...] Atrial-sensed ventricular-paced rhythm Abnormal ECG Confirmed by SLOAN RIDER MD ([id number]), order editor HAROLDO VELAZQUEZ ([id number]) on 01/24/2018 4:27:53 PM Referred By: Yoan Valenzuela Confirmed By:SLOAN RIDER MD 01/24/181626 Date Sloan Rider MD CC: Paris Webb MD; Gaston Yip MD Signed 12 LEAD ELECTROCARDIOGRAM Observed: 01/26/2018 Status: F Source: JENNIFER 9:28 AM [facility] REPOSITORY [facility] Cardiovascular Services [address] [place] [address] 12 Lead EKG 01/22/181929 MR#: [id number] Acct: [id number] Name: BERT BRAVO Rep #: [id number] : 1940 77 From: Sloan Rider MD [...] Atrial-sensed ventricular-paced rhythm Abnormal ECG Confirmed by SLOAN RIDER MD ([id number]), order editor HAROLDO VELAZQUEZ ([id number]) on 01/24/2018 4:28:13 PM Referred By: Yoan Valenzuela Confirmed By:SLOAN RIDER MD 01/24/181627 Date Sloan Rider MD CC: Paris Webb MD; Gaston Yip MD Signed BEDSIDE GLUCOSE Collected: 01/26/2018 Status: F Source: JENNIFER 6:52 AM [facility] REPOSITORY TYPE CODE TESTS RESULT OUT OF REFERENCE UNITS RANGE LAB L501.080 70-110 mg/dL High BEDSIDE GLU 152 Result Comment: MANAGEMENT OF PATIENT CARE PER NURSING PROTOCOL Performed By: #### L501.080 #### [facility] Point [place] [address] CBC W/DIFF, AUTOMATED Collected: 01/26/2018 Status: F Source: JENNIFER 5:15 AM [facility] REPOSITORY TYPE CODE TESTS RESULT OUT OF [...] Lymph 2.27 Performed By: #### L100.0100 #### [facility] [address] [place], [address] BEDSIDE GLUCOSE Collected: 01/25/2018 Status: F Source: JENNIFER 6:39 AM [facility] REPOSITORY TYPE CODE TESTS RESULT OUT OF REFERENCE UNITS RANGE LAB L501.080 70-110 mg/dL High BEDSIDE GLU 115 Result Comment: MANAGEMENT OF PATIENT CARE PER NURSING PROTOCOL Performed By: #### L501.080 #### [facility] Point of Care [address] [place] [address] BEDSIDE GLUCOSE Collected: 01/24/2018 Status: F Source: JENNIFER 7:33 AM [facility] REPOSITORY TYPE CODE TESTS RESULT OUT OF RANGE REFERENCE UNITS LAB L501.080 70-110 mg/dL Normal BEDSIDE GLU 106 Result Comment: MANAGEMENT OF PATIENT CARE PER NURSING PROTOCOL Performed By: #### L501.080 #### [facility] Point of Care [address] [place] [address] BEDSIDE GLUCOSE Collected: 01/23/2018 Status: F Source: JENNIFER 7:48 AM [facility] REPOSITORY TYPE CODE TESTS RESULT OUT OF REFERENCE UNITS RANGE LAB L501.080 70-110 mg/dL High BEDSIDE GLU 115 Result Comment: MANAGEMENT OF PATIENT CARE PER NURSING PROTOCOL Performed By: #### L501.080 #### [facility] Point of Care [address] [place] [address] EMERGENCY DEPARTMENT Observed: 01/23/2018 Status: F Source: JENNIFER SUMMARY 12:27 AM [facility] REPOSITORY [facility] Medical Records Department [address] [place] [address] Emergency Department Summary 01/22/182011 MR#: [id number] Acct: [id number] Name: BERT BRAVO Rep #: [id number] : 1940 77 From: Paris Webb MD PCP: Gaston Yip md Status: DEP ER - ER Visit Summary Date of Service: 01/22/18 Chief Complaint: Chest pain History of Present Illness: The patient is a 77 M sent down from TCU with chest pain. Per the nurse in TCU patient had angioplasty at [facility] on the . Patient is currently in TCU for rehab and shingles. Patient does report pain and rubs his lower chest. He denies shortness of breath. Past history significant for dementia, CVA, coronary disease, CA, diabetes, hypertension, high cholesterol, A. fib, Alzheimer's, [...] daughter at bedside who is power of communications executive. She states that the patient had been taken back to [facility] at one point due to prolonged chest [...] 2. Shingles This note was generated with ToutAppation software. It may contain incorrect words, spelling, [...] your Primary Care Provider. Call [facility] ([phone]) or report to the closest Emergency Room. Call 911 if necessary. 01/23/187 <Electronically signed by Paris Webb MD> Date Paris Webb MD Cosigner Signature (If Indicated): Date CC: md Gaston Yip DISCHARGE INSTRUCTION Observed: 01/22/2018 Status: F Source: CENTER 8:13 PM [facility] REPOSITORY [facility] Medical Records Department [address] [place] [address] Discharge Instruction 01/22/182011 MR#: [id number] Acct: [id number] Name: BERT BRAVO Rep #: [id number] : 1940 77 From: Paris Webb MD [...] your Primary Care Provider. Call [facility] ([phone]) or report to the closest Emergency Room. Call 911 if necessary. 01/22/182012 <Electronically signed by Paris Webb MD> Date Paris Garciaignlinda Signature (If Indicated): Date CC: md Gaston Yip TROPONIN-I Collected: 01/22/2018 Status: F Source: CENTER 7:25 PM [facility] REPOSITORY TYPE CODE TESTS RESULT OUT OF RANGE REFERENCE UNITS LAB L501.4010 <0.045 ng/mL Normal < 0.015 TROPONIN-I Result Comment: TROPONIN-I EXPECTED VALUES <0.045 Negative 0.045 - 0.590 Consistent with Cardiac Damage > OR = 0.600 Critical Value Not every elevated troponin is indicative of CA. These values should be used with clinical judgement in examining the patient's clinical picture for diagnosis. To establish a diagnosis of CA versus myocardial injury, there must be a demonstrated rise and/or fall in the troponin values, in addition to ischemic symptoms, EKG changes, new regional wall motion abnormality, and/or angiographical evidence. PLEASE NOTE: REFERENCE RANGES EDITED 17 Performed By: #### L501.4010 #### [facility] [address] [place], [address] CHEST 1 VIEW Observed: 01/22/2018 Status: F Source: CENTER (PORTABLE) 4:47 PM [facility] REPOSITORY [facility] Imaging Services [address] [place] [address] Chest 1 View (Portable) MR#: [id number] Acct: [id number] Name: BERT BRAVO Rep #: [id number] : 1940 M 77 From: Angella Guan MD PCP: Gaston Yip md Status: PRE ER Study: Chest 1 View (Portable) Date of Exam: 01/22/18 Exam# [id number] Ordering Dr: Paris Webb MD STUDY: X-RAY [...] CC: md Gaston Yip; Paris Webb MD Director Of Digital Platforms: Signed CBC W/DIFF, AUTOMATED Collected: 01/22/2018 Status: F Source: JENNIFER 4:30 PM [facility] REPOSITORY TYPE CODE TESTS RESULT OUT OF [...] Lymph 2.74 Performed By: #### L100.0100 #### [facility] [address] [place], [place], [address] BASIC METABOLIC Collected: 01/22/2018 Status: F Source: CENTER PROFILE (BMP) 4:30 PM [facility] REPOSITORY TYPE CODE TESTS RESULT OUT OF [...] 7 Performed By: #### L500.2500, L501.4010 #### [facility] [address] [place], [address] TROPONIN-I Collected: 01/22/2018 Status: F Source: JENNIFER 4:30 PM [facility] REPOSITORY TYPE CODE TESTS RESULT OUT OF RANGE REFERENCE UNITS LAB L501.4010 <0.045 ng/mL Normal < 0.015 TROPONIN-I Result Comment: TROPONIN-I EXPECTED VALUES <0.045 Negative 0.045 - 0.590 Consistent with Cardiac Damage > OR = 0.600 Critical Value Not every elevated troponin is indicative of CA. These values should be used with clinical judgement in examining the patient's clinical picture for diagnosis. To establish a diagnosis of CA versus myocardial injury, there must be a demonstrated rise and/or fall in the troponin values, in addition to ischemic symptoms, EKG changes, new regional wall motion abnormality, and/or angiographical evidence. PLEASE NOTE: REFERENCE RANGES EDITED 17 Performed By: #### L500.2500, L501.4010 #### [facility] [address] [place], [address] BEDSIDE GLUCOSE Collected: 01/22/2018 Status: F Source: JENNIFER 6:45 AM [facility] REPOSITORY TYPE CODE TESTS RESULT OUT OF REFERENCE UNITS RANGE LAB L501.080 70-110 mg/dL High BEDSIDE GLU 132 Result Comment: MANAGEMENT OF PATIENT CARE PER NURSING PROTOCOL Performed By: #### L501.080 #### [facility] Point of Care [address] [place] [address] BEDSIDE GLUCOSE Collected: 01/21/2018 Status: F Source: JENNIFER 6:42 AM [facility] REPOSITORY TYPE CODE TESTS RESULT OUT OF REFERENCE UNITS RANGE LAB L501.080 70-110 mg/dL High BEDSIDE GLU 143 Result Comment: MANAGEMENT OF PATIENT CARE PER NURSING PROTOCOL Performed By: #### L501.080 #### [facility] Point of Care [address] [place] [address] BEDSIDE GLUCOSE Collected: 01/20/2018 Status: F Source: CENTER 6:56 AM [facility] REPOSITORY TYPE CODE TESTS RESULT OUT OF REFERENCE UNITS RANGE LAB L501.080 70-110 mg/dL High BEDSIDE GLU 121 Result Comment: MANAGEMENT OF PATIENT CARE PER NURSING PROTOCOL Performed By: #### L501.080 #### [facility] Point of Care [address] [place] [address] HISTORY AND PHYSICAL Observed: 01/19/2018 Status: F Source: CENTER EXAM 6:53 PM [facility] REPOSITORY [facility] Medical Records Department [address] [place] [address] History and Physical 01/18/18 2306 MR#: [id number] Acct: [id number] Name: BERT BRAVO Rep #: [id number] : 1940 77 From: Yoan Valenzuela MD PCP: Gaston Yip md Status: ADM IN Location: [place] [address] Problem List (1) Debility Status: Acute (2) [...] with debility, secondary to Herpes Zoster, to [facility], here for rehabilitation, strengthening, prior to discharge home alone. Past Medical History Past Medical History (Chronic Problems): Chronic Problems (Last Updated 12/20/17 @ 14:41 by Tasha Leigh) Diabetes mellitus (Chronic) Coronary artery disease (Chronic) Stroke (Chronic) Alzheimer's disease (Chronic) Depression (Chronic) Atrial fibrillation (Chronic) Hypertension (Chronic) Atherosclerotic heart disease of [place] coronary artery without angina pectoris (Chronic) S/P RCA, LCX, and OM PTCA/SARKIS in April and May of 2014; Stroke determined by clinical assessment (Chronic) Hyperlipidemia (Chronic) Presence of other cardiac implants and grafts (Chronic) Staged PCI done 05/15/14 to RCA AND then readmitted 05/26/14 for acute coronary syndrome-PCI completed 05/28/14 Non-ST elevation (NSTEMI) myocardial infarction (Chronic) Diastolic dysfunction (Chronic) 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 * Vitamin E deficiency - Vitamin E 400IU daily. 01/19/18 2319 <Electronically signed by Yoan Valenzuela MD> Date Yoan Valenzuela MD Cosigner Signature: Date (if applicable) CC: md Gaston Yip; Yoan Valenzuela MD Signed BEDSIDE GLUCOSE Collected: 01/19/2018 Status: F Source: JENNIFER 4:50 PM [facility] REPOSITORY TYPE CODE TESTS RESULT OUT OF REFERENCE UNITS RANGE LAB L501.080 70-110 mg/dL High BEDSIDE GLU 112 Result Comment: MANAGEMENT OF PATIENT CARE PER NURSING PROTOCOL Performed By: #### L501.080 #### [facility] Point of [place] [address] CT ANGIOGRAPHY CHEST Observed: 01/15/2018 Status: F Source: GREGORY W/CONTRAST 5:58 PM [facility] REPOSITORY ORIGINAL CT ANGIOGRAPHY CHEST W/CONTRAST: Multiplanar [...] PM TROPI Collected: 01/15/2018 Status: F Source: [facility] 6:46 AM [facility] REPOSITORY TYPE CODE TESTS RESULT OUT [...] ECG changes may help assess possibility of CA. *Other non-acute coronary syndrome conditions such as CHF, myocarditis, pulmonary emboli, sepsis and cardiac surgery could result in myocardial damage and increased troponin levels. Performed By: #### TROPI #### [place] [address] BMP Collected: 01/15/2018 Status: F Source: [facility] 4:06 AM [facility] REPOSITORY TYPE CODE TESTS RESULT OUT [...] BMP, GFR, CBC, ADIFF, ANEU, TROPI #### [address] [address] .GFR Collected: 01/15/2018 Status: F Source: [facility] 4:06 AM [facility] REPOSITORY TYPE CODE TESTS RESULT OUT OF REFERENCE UNITS RANGE LAB GFRAA(LOINC ml/min/1.73 ) sqm GFR >60 Green[place]ic Result Comment: GFR Population mean for , [...] BMP, GFR, CBC, ADIFF, ANEU, TROPI #### [address] [address] CBC Collected: 01/15/2018 Status: F Source: [facility] 4:06 AM [facility] REPOSITORY TYPE CODE TESTS RESULT OUT [...] BMP, GFR, CBC, ADIFF, ANEU, TROPI #### [facility] [address] [place] [address] .AUTO DIFF Collected: 01/15/2018 Status: F Source: [facility] 4:06 AM [facility] REPOSITORY TYPE CODE TESTS RESULT OUT [...] BMP, GFR, CBC, ADIFF, ANEU, TROPI #### [address] [address] .NEUABS Collected: 01/15/2018 Status: F Source: [facility] 4:06 AM [facility] REPOSITORY TYPE CODE TESTS RESULT OUT OF REFERENCE UNITS RANGE LAB ANEU(LOINC) 2.25-8.10 10 3/mcL Neutrophil, 5.50 Absolute Performed By: #### BMP, GFR, CBC, ADIFF, ANEU, TROPI #### [place] [id number] TROPI Collected: 01/15/2018 Status: F Source: [facility] 4:06 AM [facility] REPOSITORY TYPE CODE TESTS RESULT OUT [...] ECG changes may help assess possibility of CA. *Other non-acute coronary syndrome conditions such as CHF, myocarditis, pulmonary emboli, sepsis and cardiac surgery could result in myocardial damage and increased troponin levels. Performed By: #### BMP, GFR, CBC, ADIFF, ANEU, TROPI #### [place] [address] CBC Collected: 01/14/2018 Status: F Source: [facility] 11:59 PM [facility] REPOSITORY TYPE CODE TESTS RESULT OUT [...] CBC, ADIFF, ANEU, GFR, BMP, TROPI #### [address] [address] .AUTO DIFF Collected: 01/14/2018 Status: F Source: [facility] 11:59 PM [facility] REPOSITORY TYPE CODE TESTS RESULT OUT [...] CBC, ADIFF, ANEU, GFR, BMP, TROPI #### [address] [address] .NEUABS Collected: 01/14/2018 Status: F Source: [facility] 11:59 PM [facility] REPOSITORY TYPE CODE TESTS RESULT OUT OF REFERENCE UNITS RANGE LAB ANEU(LOINC) 2.25-8.10 10 3/mcL Neutrophil, 4.30 Absolute Performed By: #### CBC, ADIFF, ANEU, GFR, BMP, TROPI #### [address] [address] .GFR Collected: 01/14/2018 Status: F Source: [facility] 11:59 PM [facility] REPOSITORY TYPE CODE TESTS RESULT OUT OF REFERENCE UNITS RANGE LAB GFRAA(LOINC ml/min/1.73 ) sqm GFR >60 [place]ic Result Comment: GFR Population mean for , [...] CBC, ADIFF, ANEU, GFR, BMP, TROPI #### [address] [address] BMP Collected: 01/14/2018 Status: F Source: [facility] 11:59 PM [facility] REPOSITORY TYPE CODE TESTS RESULT [...] CBC, ADIFF, ANEU, GFR, BMP, TROPI #### [address] [address] TROPI Collected: 01/14/2018 Status: F Source: [facility] 11:59 PM [facility] REPOSITORY TYPE CODE TESTS RESULT OUT [...] ECG changes may help assess possibility of CA. *Other non-acute coronary syndrome conditions such as CHF, myocarditis, pulmonary emboli, sepsis and cardiac surgery could result in myocardial damage and increased troponin levels. Performed By: #### CBC, ADIFF, ANEU, GFR, BMP, TROPI #### [address] [address] TROPONIN Collected: 01/14/2018 Status: F Source: [facility] 7:04 PM [facility] REPOSITORY TYPE CODE TESTS RESULT [...] such as heterophile antibodies). Performed By: #### [id number] #### [facility],[address] [place] [address] CHEST 1 VIEW Observed: 01/14/2018 Status: F Source: [facility] 4:27 PM [place] [address] Patient: BERT BRAVO Phone#: : 1940 Age: 77 Gender: M Pt. Type: ER Account: [id number] Location: [facility] Ordering: DR. HARSH ROBERTSON Exam Date: 01/14/2018/16:04 Family Phys: GASTON YIP Charge Code: 155285 Physician: [place] Order #: [id number] DLP Dose#: PROCEDURE: X-RAY CHEST 1 VIEW COMPARISON: [facility], XR, CHEST AP, 07/23/2015, 8:18. INDICATIONS: Dizziness [...] W/O CONTRAST Observed: 01/14/2018 Status: F [facility] 4:19 PM [place] [address] Patient: BERT BRAVO Phone#: : 1940 Age: 77 Gender: M Pt. Type: ER Account: [id number] Location: 052 Ordering: DR. HARSH ROBERTSON Exam Date: 01/14/2018/16:13 Family Phys: GASTON YIP Charge Code: 277414 Physician: [place] Order #: [id number] DLP Dose#: PROCEDURE: CT BRAIN WITHOUT CONTRAST COMPARISON: [facility], CT, BRAIN W/O CON, 05/28/2012, 11:39. [facility], CT, BRAIN W/O CON, 05/11/2014, 3:17. INDICATIONS: [...] process cannot be initially evident on CT. [place] [address] Patient: BERT BRAVO Phone#: : 1940 Age: 77 Gender: M Pt. Type: ER Account: [id number] Location: 052 Ordering: DR. HARSH ROBERTSON Exam Date: 01/14/2018/16:13 Family Phys: GASTON YIP Charge Code: 267017 Physician: [place] Order #: [id number] DLP Dose#: Dictated by: Pebbles Apple MD on 01/15/2018 at 10:55 Approved by: Pebbles Apple MD on 01/15/2018 at 10:55 EMERGENCY REPORT Observed: 01/14/2018 Status: F Source: [facility] 3:[address] [facility] EMERGENCY ROOM REPORT NAME ACCOUNT SEX AGE ADMIT DISCHARGE PT MED. RECORD# NUMBER DATE DATE TYPE LAWRENCE [id number] M 77 01/14/18 3 BERT [place] [address] ROOM: ER DATE OF : 1940 DICTATING PHYSICIAN: Harsh Robertson CHIEF COMPLAINT: Chest pain. HISTORY OF PRESENT ILLNESS: This is a 77-year-old male patient who presents with his daughter with 1 hour prior to arrival chest pain. The patient has an extensive cardiac history including 6 stents, pacemaker placement in 2014. He presented to [place] [facility] about 2 weeks ago, according to [...] HISTORY: Coronary artery disease, normal pressure hydrocephalus, shw-hbefgdy-ovrtalakf diabetes, and CVA. PAST SURGICAL HISTORY: Angioplasty, cardiac catheterization with stents. MEDICATIONS: See nursing notes. ALLERGIES: None. FAMILY HISTORY: Noncontributory. Page 1 of 2 LAWRENCE BERT Weber Emergency Room Report SOCIAL HISTORY: Negative for [...] Harsh Robertson DO 01/14/18 17:40 JOB #: [id number] Transcribed By: am 01/14/18 17:48 Electronically signed by: E-Sign: HARHS ROBERTSON MD 01/16/18 12:00 Page 2 of 2 BERT BRAVO Emergency Room Report CBC Collected: 01/14/2018 Status: F Source: [facility] 3:50 PM [facility] REPOSITORY TYPE CODE TESTS RESULT [...] 7.10 x10EE3/U L Neut # 6.00 LAB [place] #(LOINC) 0.20 - 1.00 x10EE3/U L [place] # 0.70 LAB EO #(LOINC) 0.00 - 0.50 x10EE3/U L EO # 0.20 LAB Baso #(LOINC) 0.00 - 0.10 x10EE3/U L Baso # 0.00 LAB MANUAL DIFF(LOINC) MANUAL DIFF N/A LAB MORPHOLOGY(LOINC ) MORPHOLOGY N/A Result Comment: {CD] Performed By: #### [id number] #### [facility],[address] [place] [address] BMP WITH EGFR Collected: 01/14/2018 Status: F Source: [facility] 3:50 PM [facility] REPOSITORY TYPE CODE TESTS RESULT [...] OF AGE AND OLDER. Performed By: #### [id number] #### [facility],[address] [place], [place] [id number] TROPONIN Collected: 01/14/2018 Status: F Source: [facility] 3:50 PM [facility] REPOSITORY TYPE CODE TESTS RESULT [...] such as heterophile antibodies). Performed By: #### [id number] #### [facility],[address] [place] [address] BNP (B-TYPE NATRIURETIC Collected: 01/14/2018 Status: F Source: [facility]) 3:50 PM [facility] REPOSITORY TYPE CODE TESTS RESULT OUT OF RANGE REFERENCE UNITS LAB BNP(LOINC) 1 - 100 pg/ml BNP 95 Performed By: #### [id number] #### [facility],[address] [place] [address] CBC Collected: 01/13/2018 Status: F Source: [facility] 5:54 AM [facility] REPOSITORY Order Comment: clotted TYPE CODE TESTS [...] GFR, BMP, MG, CBC, ADIFF, ANEU #### [place] [address] .AUTO DIFF Collected: 01/13/2018 Status: F Source: [facility] 5:54 AM [facility] REPOSITORY TYPE CODE TESTS RESULT OUT [...] GFR, BMP, MG, CBC, ADIFF, ANEU #### [place] [address] .NEUABS Collected: 01/13/2018 Status: F Source: [facility] 5:54 AM [facility] REPOSITORY TYPE CODE TESTS RESULT OUT OF REFERENCE UNITS RANGE LAB ANEU(LOINC) 2.25-8.10 10 3/mcL Neutrophil, 4.50 Absolute Performed By: #### GFR, BMP, MG, CBC, ADIFF, ANEU #### [place] [address] .GFR Collected: 01/13/2018 Status: F Source: [facility] 4:28 AM [facility] REPOSITORY TYPE CODE TESTS RESULT OUT OF REFERENCE UNITS RANGE LAB GFRAA(LOINC ml/min/1.73 ) sqm GFR >60 [place]ic Result Comment: GFR Population mean for , [...] GFR, BMP, MG, CBC, ADIFF, ANEU #### [place] [address] BMP Collected: 01/13/2018 Status: F Source: [facility] 4:28 AM [facility] REPOSITORY TYPE CODE TESTS RESULT [...] GFR, BMP, MG, CBC, ADIFF, ANEU #### [address] [address] MG Collected: 01/13/2018 Status: F Source: [facility] 4:28 AM [facility] REPOSITORY TYPE CODE TESTS RESULT OUT OF REFERENCE UNITS RANGE LAB MG(LOINC) 1.6-2.4 mg/dL Magnesium Lvl 2.3 Result Comment: Specimen moderately hemolyzed. Results may be falsely elevated. Performed By: #### GFR, BMP, MG, CBC, ADIFF, ANEU #### [address] [address] BMP Collected: 01/12/2018 Status: F Source: [facility] 5:09 AM [facility] REPOSITORY TYPE CODE TESTS RESULT OUT [...] BMP, GFR, CBC, ADIFF, ANEU, MG #### [address] [address] .GFR Collected: 01/12/2018 Status: F Source: [facility] 5:09 AM [facility] REPOSITORY TYPE CODE TESTS RESULT OUT OF REFERENCE UNITS RANGE LAB GFRAA(LOINC ml/min/1.73 ) sqm GFR >60 [place] Result Comment: GFR Population mean for , [...] BMP, GFR, CBC, ADIFF, ANEU, MG #### [address] [address] CBC Collected: 01/12/2018 Status: F Source: [facility] 5:09 AM [facility] REPOSITORY TYPE CODE [...] BMP, GFR, CBC, ADIFF, ANEU, MG #### [address] [address] .AUTO DIFF Collected: 01/12/2018 Status: F Source: [facility] 5:09 AM [facility] REPOSITORY TYPE CODE TESTS RESULT OUT [...] BMP, GFR, CBC, ADIFF, ANEU, MG #### [address] [address] .NEUABS Collected: 01/12/2018 Status: F Source: [facility] 5:09 AM [facility] REPOSITORY TYPE CODE TESTS RESULT OUT OF REFERENCE UNITS RANGE LAB ANEU(LOINC) 2.25-8.10 10 3/mcL Neutrophil, 3.70 Absolute Performed By: #### BMP, GFR, CBC, ADIFF, ANEU, MG #### [address] [address] MG Collected: 01/12/2018 Status: F Source: [facility] 5:09 AM [facility] REPOSITORY TYPE CODE TESTS RESULT OUT OF REFERENCE UNITS RANGE LAB MG(LOINC) 1.6-2.4 mg/dL Magnesium Lvl 2.3 Performed By: #### COREEN, GFR, CBC, ADIFF, ANEU, MG #### [address] [address] BMP Collected: 01/11/2018 Status: F Source: [facility] 4:42 AM [facility] REPOSITORY TYPE CODE TESTS RESULT OUT [...] mg/dL Calcium Lvl 8.8 Performed By: #### COREEN, GFR, CBC, ADIFF, ANEU, MG #### [address] [address] .GFR Collected: 01/11/2018 Status: F Source: [facility] 4:42 AM [facility] REPOSITORY TYPE CODE TESTS RESULT OUT OF REFERENCE UNITS RANGE LAB GFRAA(LOINC ml/min/1.73 ) sqm GFR >60 [place] Result Comment: GFR Population mean for , [...] BMP, GFR, CBC, ADIFF, ANEU, MG #### [place] [address] CBC Collected: 01/11/2018 Status: F Source: [facility] 4:42 AM [facility] REPOSITORY TYPE CODE [...] BMP, GFR, CBC, ADIFF, ANEU, MG #### [place] [address] .AUTO DIFF Collected: 01/11/2018 Status: F Source: [facility] 4:42 AM [facility] REPOSITORY TYPE CODE TESTS RESULT OUT [...] BMP, GFR, CBC, ADIFF, ANEU, MG #### [place] [address] .NEUABS Collected: 01/11/2018 Status: F Source: [facility] 4:42 AM [facility] REPOSITORY TYPE CODE TESTS RESULT OUT OF REFERENCE UNITS RANGE LAB ANEU(LOINC) 2.25-8.10 10 3/mcL Neutrophil, 6.90 Absolute Performed By: #### BMP, GFR, CBC, ADIFF, ANEU, MG #### [address] [address] MG Collected: 01/11/2018 Status: F Source: [facility] 4:42 AM [facility] REPOSITORY TYPE CODE TESTS RESULT OUT OF REFERENCE UNITS RANGE LAB MG(LOINC) 1.6-2.4 mg/dL Magnesium Lvl 2.2 Performed By: #### BMP, GFR, CBC, ADIFF, ANEU, MG #### [place] [id number] NM MYOCARDIAL SPECT Observed: 01/10/2018 Status: F Source: [place] [facility] 8:00 AM [facility] REPOSITORY ORIGINAL NM MYOCARDIAL SPECT STRESS/REST CLINICAL [...] an EF of 36%. Interpreted By: Kai Medley MD Preliminary Report By: Jalen Jasmine Electronically Signed By: Kai Medley MD Dictated Date: 01/10/2018 1:58:52 PM Prelim Date: 01/10/2018 2:10:41 PM Sign Date: 01/10/2018 2:50:31 PM CBC Collected: 01/10/2018 Status: F Source: [facility] 6:27 AM [facility] REPOSITORY TYPE CODE TESTS RESULT OUT [...] #### CBC, ADIFF, ANEU, BMP, GFR #### [address] [address] .AUTO DIFF Collected: 01/10/2018 Status: F Source: [facility] 6:27 AM [facility] REPOSITORY TYPE CODE TESTS RESULT OUT [...] #### CBC, ADIFF, ANEU, BMP, GFR #### [address] [address] .NEUABS Collected: 01/10/2018 Status: F Source: [facility] 6:27 AM [facility] REPOSITORY TYPE CODE TESTS RESULT OUT OF REFERENCE UNITS RANGE LAB ANEU(LOINC) 2.25-8.10 10 3/mcL Neutrophil, 5.20 Absolute Performed By: #### CBC, ADIFF, ANEU, BMP, GFR #### [address] [address] BMP Collected: 01/10/2018 Status: F Source: [facility] 6:27 AM [facility] REPOSITORY TYPE CODE TESTS RESULT OUT [...] #### CBC, ADIFF, ANEU, BMP, GFR #### [address] [address] .GFR Collected: 01/10/2018 Status: F Source: [facility] 6:27 AM [facility] REPOSITORY TYPE CODE TESTS RESULT OUT OF REFERENCE UNITS RANGE LAB GFRAA(LOINC ml/min/1.73 ) sqm GFR >60 [place] Result Comment: GFR Population mean for , [...] #### CBC, ADIFF, ANEU, BMP, GFR #### [address] [address] TROPI Collected: 01/10/2018 Status: F Source: [facility] 12:07 AM [facility] REPOSITORY TYPE CODE TESTS RESULT OUT [...] ECG changes may help assess possibility of CA. *Other non-acute coronary syndrome conditions such as CHF, myocarditis, pulmonary emboli, sepsis and cardiac surgery could result in myocardial damage and increased troponin levels. Performed By: #### TROPI #### [address] [address] TROPI Collected: 01/09/2018 Status: F Source: [employer] [facility] 8:11 PM [facility] REPOSITORY TYPE CODE TESTS RESULT OUT [...] ECG changes may help assess possibility of CA. *Other non-acute coronary syndrome conditions such as CHF, myocarditis, pulmonary emboli, sepsis and cardiac surgery could result in myocardial damage and increased troponin levels. Performed By: #### TROPI #### [address] [address] XR CHEST 1 VIEW Observed: 01/09/2018 Status: F Source: [facility] 12:52 PM [facility] REPOSITORY ORIGINAL XR CHEST 1 VIEW at [...] PM CBC Collected: 01/09/2018 Status: F Source: [facility] 12:13 PM [facility] REPOSITORY TYPE CODE TESTS RESULT OUT [...] CBC, ADIFF, ANEU, BMP, GFR, TROPI #### [address] [address] .AUTO DIFF Collected: 01/09/2018 Status: F Source: [facility] 12:13 [facility] REPOSITORY TYPE [...] CBC, ADIFF, ANEU, BMP, GFR, TROPI #### [place] [address] .NEUABS Collected: 01/09/2018 Status: F Source: [facility] 12:13 [facility] REPOSITORY TYPE CODE TESTS RESULT OUT OF REFERENCE UNITS RANGE LAB ANEU(LOINC) 2.25-8.10 10 3/mcL Neutrophil, 5.50 Absolute Performed By: #### CBC, ADIFF, ANEU, BMP, GFR, TROPI #### [place] [address] BMP Collected: 01/09/2018 Status: F Source: [facility] 12:13 [facility] REPOSITORY TYPE [...] CBC, ADIFF, ANEU, BMP, GFR, TROPI #### [place] [address] .GFR Collected: 01/09/2018 Status: F Source: [facility] 12:13 PM [facility] REPOSITORY TYPE CODE TESTS RESULT OUT OF REFERENCE UNITS RANGE LAB GFRAA(LOINC ml/min/1.73 ) sqm GFR >60 [place] Result Comment: GFR Population mean for , [...] CBC, ADIFF, ANEU, BMP, GFR, TROPI #### [facility] [address] [place] [address] TROPI Collected: 01/09/2018 Status: F Source: [employer] [facility] 12:13 PM [facility] REPOSITORY TYPE CODE TESTS RESULT OUT [...] ECG changes may help assess possibility of CA. *Other non-acute coronary syndrome conditions such as CHF, myocarditis, pulmonary emboli, sepsis and cardiac surgery could result in myocardial damage and increased troponin levels. Performed By: #### CBC, ADIFF, ANEU, BMP, GFR, TROPI #### [address] [address] [address] HEAD OR BRAIN W/O Observed: 01/09/2018 Status: F Source: [employer] [facility] CONTRAST 9:00 AM [facility] REPOSITORY ORIGINAL Head CT, 01/09/2018 9:13 AM [...] Status: F Source: BE[facility]ET[facility] KABA 3:[address] [address] Patient: BERT BRAVO Phone#: : 1940 Age: 77 Gender: M Pt. Type: Out Account: [id number] Location: 052 Ordering: GASTON YIP Exam Date: 01/05/2018/15:13 Family Phys: Charge Code: 357369 Physician: [place] Order #: [id number] DLP Dose#: PROCEDURE: VENOUS DOPPLER LT LEG COMPARISON: None. INDICATIONS: Leg pain TECHNIQUE: Color duplex Doppler ultrasound evaluation analysis was performed in the usual manner. AURICULOTHERAPIST: CARLENE RISK FACTORS FOR VENOUS DISEASE: Other [...] + + GSV + GASTROC SOLEAL V AURICULOTHERAPIST'S NOTES: Continued Report - Page 2 of 2 Patient: BERT BRAVO Phone#: : 1940 Age: 77 Gender: M Pt. Type: Out Account: [id number] Location: 052 Ordering: GASTON YIP Exam Date: 01/05/2018/15:13 Family Phys: Charge Code: 023395 Physician: [place] Order #: [id number] DLP Dose#: FINDINGS: THROMBI: None visible. COMPRESSIBILITY: Normal. OTHER: Minimal reflux of the left peroneal vein. CONCLUSION: 1. No evidence of deep venous thrombosis in the left lower extremity. Dictated by: Pebbles Apple MD on 01/05/2018 at 16:25 Approved by: Pebbles Apple MD on 01/05/2018 at 16:25 CBC Collected: 12/29/2017 Status: F Source: [facility] 6:50 AM [facility] REPOSITORY TYPE CODE TESTS RESULT OUT [...] ADIFF, ANEU, BMP, GFR, LIPID, A1C #### [place] [address] .AUTO DIFF Collected: 12/29/2017 Status: F Source: [facility] 6:50 AM [facility] REPOSITORY TYPE CODE TESTS RESULT OUT [...] ADIFF, ANEU, BMP, GFR, LIPID, A1C #### [address] [address] .NEUABS Collected: 12/29/2017 Status: F Source: [facility] 6:50 AM [facility] REPOSITORY TYPE CODE TESTS RESULT OUT OF REFERENCE UNITS RANGE LAB ANEU(LOINC) 2.25-8.10 10 3/mcL Neutrophil, 3.20 Absolute Performed By: #### CBC, ADIFF, ANEU, BMP, GFR, LIPID, A1C #### [address] [address] BMP Collected: 12/29/2017 Status: F Source: [facility] 6:50 AM [facility] REPOSITORY TYPE CODE TESTS RESULT OUT [...] ADIFF, ANEU, BMP, GFR, LIPID, A1C #### [address] [address] .GFR Collected: 12/29/2017 Status: F Source: [facility] 6:50 AM [facility] REPOSITORY TYPE CODE TESTS RESULT OUT OF REFERENCE UNITS RANGE LAB GFRAA(LOINC ml/min/1.73 ) sqm GFR >60 Green[place]ic Result Comment: GFR Population mean for , [...] ADIFF, ANEU, BMP, GFR, LIPID, A1C #### [place] [address] LIPID Collected: 12/29/2017 Status: F Source: [facility] 6:50 AM [facility] REPOS[facility] TYPE CODE [...] ADIFF, ANEU, BMP, GFR, LIPID, A1C #### [facility] [address] [place] [address] A1C Collected: 12/29/2017 Status: F Source: [employer] [facility] [facility] 6:50 AM [facility] REPOSITORY TYPE CODE TESTS RESULT OUT OF RANGE REFERENCE UNITS LAB A1C(LOINC) 4.0-6.0 % High Hgb A1c 6.5 Performed By: #### CBC, ADIFF, ANEU, BMP, GFR, LIPID, A1C #### [facility] [address] [place] [address] CT HEAD OR BRAIN W/O Observed: 12/29/2017 Status: F Source: [employer] [facility] [facility] CONTRAST 5:25 AM [facility] REPOSITORY ORIGINAL CT HEAD OR BRAIN W/O [...] AM TROPI Collected: 12/28/2017 Status: F Source: [facility] 8:13 PM [facility] REPOSITORY TYPE CODE TESTS RESULT [...] ECG changes may help assess possibility of CA. *Other non-acute coronary syndrome conditions such as CHF, myocarditis, pulmonary emboli, sepsis and cardiac surgery could result in myocardial damage and increased troponin levels. Performed By: #### TROPI #### [address] [address] TROPI Collected: 12/28/2017 Status: F Source: [employer] [facility] [facility] 4:49 [facility] REPOSITORY TYPE CODE TESTS [...] ECG changes may help assess possibility of CA. *Other non-acute coronary syndrome conditions such as CHF, myocarditis, pulmonary emboli, sepsis and cardiac surgery could result in myocardial damage and increased troponin levels. Performed By: #### TROPI #### [address] [address] [address] ANGIOGRAPHY CHEST Observed: 12/28/2017 Status: F Source: [employer] W/CONTRAST 12:15 PM [facility] REPOSITORY ORIGINAL CT angiogram of the chest, [...] clear. IMPRESSION: No pulmonary embolus. Interpreted By: Galielo Caldwell MD Preliminary Report By: Galileo Caldwell MD Electronically Signed By: Galileo Caldwell MD Dictated Date: 12/28/2017 12:33:29 PM Prelim Date: 12/28/2017 12:33:29 PM Sign Date: 12/28/2017 12:36:[address] HEAD OR BRAIN W/O Observed: 12/28/2017 Status: F Source: [facility] CONTRAST 12:00 PM [facility] REPOSITORY ORIGINAL CT HEAD OR BRAIN W/O [...] Status: F Source: [facility] W/CONTRAST 12:00 PM [facility] REPOSITORY ORIGINAL CT ANGIOGRAPHY NECK W/CONTRAST Clinical [...] Status: F Source: [facility] CONTRAST 12:00 PM [facility] REPOSITORY ORIGINAL CT ANGIOGRAPHY HEAD W/ CONTRAST [...] PM CMP Collected: 12/28/2017 Status: F Source: [facility] 11:45 AM [facility] REPOSITORY TYPE CODE TESTS RESULT OUT [...] Performed By: #### CMP, GFR, TSH #### [place] [address] .GFR Collected: 12/28/2017 Status: F Source: [facility] 11:45 AM [facility] REPOSITORY TYPE CODE TESTS RESULT OUT OF REFERENCE UNITS RANGE LAB GFRAA(LOINC ml/min/1.73 ) sqm GFR >60 Green[place]ic Result Comment: GFR Population mean for , [...] Performed By: #### CMP, GFR, TSH #### [facility] [address] [place] [address] TSH Collected: 12/28/2017 Status: F [facility] 11:45 AM [facility] REPOSITORY TYPE CODE TESTS RESULT OUT OF RANGE REFERENCE UNITS LAB TSH(LOINC) 0.360-3.740 mcIU/mL TSH 1.960 Result Comment: Please note as of 09/10/16 new pediatric reference intervals were added for this test. Performed By: #### CMP, GFR, TSH #### [address] [address] PRO Collected: 12/28/2017 Status: F [facility]45 AM [facility] REPOSITORY TYPE CODE TESTS RESULT OUT OF REFERENCE UNITS RANGE LAB PT(LOINC) 9.0-14.6 seconds Protime 12.5 Result Comment: Effective 09/11/07, Protime results may be affected by some antibiotics (i.e. Ciprofloxacin, Azithromycin, Bactrim) which may potentiate the action of oral anticoagulants, with further increases in Protime/INR. LAB INR(LOINC) ratio PT International Ratio 1.1 Result Comment: The [place] [employer] (CHEST, 1992, 102:312S-25S) recommended therapeutic range for oral anticoagulant therapy is: LOW RISK: Prophylaxis of venous thrombosis INR: 2.0-3.0 Treatment of pulmonary embolism 2.0-3.0 Prevention of systemic embolism 2.0-3.0 HIGH RISK: Mechanical prosthetic valves 2.5-3.5 Performed By: #### PRO #### [place] [id number] APTT Collected: 12/28/2017 Status: F [facility] 11:45 AM [facility] REPOSITORY TYPE CODE TESTS RESULT OUT OF REFERENCE UNITS RANGE LAB PDOSE(LOIN C) Heparin dose Unknown (APTT) LAB APTT0(LOIN 25.0-35.0 seconds C) APTT 32.3 Result Comment: For Heparin anticoagulation therapy, the recommended therapeutic range is: 54-77 seconds (APTT Correlation with Anti-Xa therapeutic range of 0.3-0.7 units/ml). PLEASE REFERENCE THE PHARMACY PROTOCOL FOR DOSING. Performed By: #### APTT #### [address] [address] CBC Collected: 12/28/2017 Status: F Source: [facility] 11:28 [facility] REPOSITORY TYPE CODE TESTS RESULT OUT [...] ADIFF, ANEU, BMP, GFR, TROPI, PBNP #### [address] [address] .AUTO DIFF Collected: 12/28/2017 Status: F Source: [facility] 11:28 [facility] REPOSITORY TYPE CODE TESTS RESULT OUT [...] ADIFF, ANEU, BMP, GFR, TROPI, PBNP #### [place] [address] .NEUABS Collected: 12/28/2017 Status: F Source: [facility] 11:28 AM [facility] REPOSITORY TYPE CODE TESTS RESULT OUT OF REFERENCE UNITS RANGE LAB ANEU(LOINC) 2.25-8.10 10 3/mcL Neutrophil, 4.00 Absolute Performed By: #### CBC, ADIFF, ANEU, BMP, GFR, TROPI, PBNP #### [place] [address] BMP Collected: 12/28/2017 Status: F Source: [facility] 11:28 [facility] REPOSITORY TYPE CODE TESTS RESULT OUT [...] ADIFF, ANEU, BMP, GFR, TROPI, PBNP #### [place] [address] .GFR Collected: 12/28/2017 Status: F Source: [facility] 11:28 [facility] REPOSITORY TYPE CODE TESTS RESULT OUT OF REFERENCE UNITS RANGE LAB GFRAA(LOINC ml/min/1.73 ) sqm GFR >60 [place]ic Result Comment: GFR Population mean for , [...] ADIFF, ANEU, BMP, GFR, TROPI, PBNP #### [place] [address] TROPI Collected: 12/28/2017 Status: F Source: [facility] 11:28 AM [facility] REPOSITORY TYPE CODE [...] ECG changes may help assess possibility of CA. *Other non-acute coronary syndrome conditions such as CHF, myocarditis, pulmonary emboli, sepsis and cardiac surgery could result in myocardial damage and increased troponin levels. Performed By: #### CBC, ADIFF, ANEU, BMP, GFR, TROPI, PBNP #### [facility] [address] [place] [address] PBNP Collected: 12/28/2017 Status: F Source: [facility] 11:28 AM [facility] REPOSITORY TYPE CODE TESTS RESULT OUT OF REFERENCE UNITS RANGE LAB PBNP(LOINC) 0-1800 pg/mL N-Terminal 305 proBNP Result Comment: NT-proBNP results of less than 300 pg/mL effectively rules out acute congestive heart failure with 99% negative predictive value. Performed By: #### CBC, ADIFF, ANEU, BMP, GFR, TROPI, PBNP #### [facility] [address] [place] [address] CARDIOLOGY VISIT Observed: 12/20/2017 Status: F Source: [facility] 3:28 PM [facility] REPOSITORY [facility] [address] [place] [address] OFFICE VISIT Date of Service: 12/20/17 MR#: [id number] Acct: [id number] Name: BERT BRAVO Rep #: [id number] : 1940 Provider: Sloan Rider MD Age/Sex: 77/M Location: [facility] Status: Signed HPI HPI Details: BERT BRAVO, is a 77 M who presents to the office today for outpatient cardiovascular follow-up. He appears to, based upon his recollection, as well as with information from his daughter who was at [facility] RN, note that there was an episode [...] PO DAILY cap 12/20/17 [History Confirmed 12/20/17] [facility] Medical History Atrial fibrillation (Acute) Hypertension (Chronic) Atherosclerotic heart disease of [place] coronary artery without angina pectoris (Chronic) Hyperlipidemia [...] Muscle aches with walking: Bilateral (intermittantly; saw operations research scientist, decreased pulse) Additional Details: X2 nitros used [...] normal affect Supplemental Info Transthoracic echocardiogram: 07/24/2015 [facility]: Summary: Left ventricle with mild to moderate [...] an LVEF of 41%. 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 Name: Darlene ARGUETA Model #: 2240 Serial #: [id number] Date Implanted: 05/13/2014 Device Characteristics Device: Dual Chamber Type: Pacemaker Remote:Porter.[facility] Patient Characteristics AV Node Indication: Second degree AV block Patient Substrate: symptomatic bradycardia Pacemaker Dependent: No Assessment AND Plan 1. Atherosclerosis of [place] coronary artery of [place] heart without angina pectoris I25.10 S/P RCA, [...] Presence of cardiac pacemaker Z95.0 Pacemaker implant 319/15 Plan His most recent pacemaker evaluation is [...] Code Off vis,est,level 5 Diagnoses Atherosclerosis of [place] coronary artery of [place] heart without angina pectoris I25.10 [place] vs. transplanted heart: [place] heart Presence of other cardiac implants and grafts Z95.818 Cardiomyopathy, ischemic I25.5 Persistent atrial fibrillation I48.1 Atrial fibrillation type: persistent Second degree atrioventricular block I44.1 Presence of cardiac pacemaker Z95.0 Pure hypercholesterolemia E78.00 Hyperlipidemia type: pure hypercholesterolemia Essential hypertension I10 Hypertension type: essential hypertension Coding Level of Care Code Off vis,est,level 5 Diagnoses Atherosclerosis of [place] coronary artery of [place] heart without angina pectoris I25.10 [place] vs. transplanted heart: [place] heart Presence of other cardiac implants and [...] F Source: [facility]ENNIFER CULTURE, URINE 4:30 PM [facility] REPOSITORY URINE CULTURE SET UP 3 HOURS AFTER DELIVERY TO LAB Urine Culture ORGANISM 1: Mixed Gram Positive Organisms Monroe Count >100,000 MIX CULTURE Mixed contaminants. Submit a new specimen if indicated. Performed By: #### M100.0650 #### [facility] [address] [place] [address]. [place], [address] PACEMAKER CHECK Observed: 09/13/2017 Status: F Source: JENN[facility]ER 10:42 AM [facility] REPOSITORY [facility] [address] [place], [place] [address]. [address] [place] [address] Pacemaker Check Date of Service: 09/12/17 1508 MR#: [id number] Acct: [id number] Name: BERT BRAVO Rep #: [id number] : 1940 From: Ping Lopes Age/Sex: 77/M Location: [facility] Status: Signed Billing Codes PM Device Codes: PM Dev Prog Eval, Dual 09/12/17 1509 <Electronically signed by Ping Lopes > Date Ping Lopes 09/13/17 1042<Electronically signed by Ryan Gamble MD> [place] Signature: Date (if applicable) Ryan Gamble MD CC: CARDIOLOGY VISIT Observed: 09/13/2017 Status: F Source: JENN[facility]ER REPORT 9:33 AM [facility] REPOSITORY [facility] [address] [place], [place] [address] OFFICE VISIT Date of Service: 09/12/17 MR#: [id number] Acct: [id number] Name: BERT BRAVO Rep #: [id number] : 1940 Provider: ROHIT Smith Age/Sex: 77/M [place] [facility] Status: Signed HPI HPI Details: BERT BRAVO, [...] (Acute) Hypertension (Chronic) Atherosclerotic heart disease of [place] coronary artery without angina pectoris (Chronic) Hyperlipidemia [...] noted. August 2017 showed presenting rhythm of AP/JUNIOR SYSTEMS ENGINEER at 60 bpm, AP% of 66%, JUNIOR SYSTEMS ENGINEER% of 95%, battery longevity of approximately 8.6-8.9 years, and 1 mode switch which comprised 1.3% oftotal time of atrial flutter. Assessment AND Plan 1. Atherosclerosis of [place] coronary artery of [place] heart without angina pectoris I25.10 S/P RCA, [...] Follow Up 12 Months (PFM) 6 Months (VC++ DEVELOPER/PA) Coding Level of Care Code Off vis,est,level 3 Diagnoses Atherosclerosis of [place] coronary artery of [place] heart without angina pectoris I25.10 [place] vs. transplanted heart: [place] heart Ischemic cardiomyopathy I25.5 Second degree atrioventricular block I44.1 Presence of cardiac pacemaker Z95.0 Pure hypercholesterolemia E78.00 Hyperlipidemia type: pure hypercholesterolemia Coding Level of Care Code Off vis,est,level 3 Diagnoses Atherosclerosis of [place] coronary artery of [place] heart without angina pectoris I25.10 [place] vs. transplanted heart: [place] heart Ischemic cardiomyopathy I25.5 Second degree atrioventricular block I44.1 Presence of cardiac pacemaker Z95.0 Pure hypercholesterolemia E78.00 Hyperlipidemia type: pure hypercholesterolemia 09/13/17 0933 <Electronically signed by Quintin PASCUAL> Date Quintin PASCUAL Cosigner Signature: Date (if applicable) CC: Gaston Yip PACEMAKER CHECK Observed: 07/27/2017 Status: F Source: CENTER 6:45 PM [facility] REPOSITORY [facility] [address] [place] [address] Pacemaker Check Date of Service: 07/25/17 0833 MR#: [id number] Acct: [id number] Name: BERT BRAVO Rep #: [id number] : 1940 From: Ping Lopes Age/Sex: 77/M Location: [facility] Status: Signed Comments Summary Comments: Remote Dual Chamber Pacemaker Evaluation: See attached scanned remote Stevie report. Remote interrogation shows 12 MS episodes, 51% total time and no VHR episodes since 03/21/17. Stored e-grams show PAT and PAF with appropriate MS. Presenting rhythm shows AV sequential paced @ 64 ppm. JUNIOR SYSTEMS ENGINEER=98%. Battery longevity approx 8.7 yrs. Lead impedances and sensing remain stable. Normal remote PPM function. Next remote f/u appt scheduled for in 3 mos. Device Device Date Interviewed: 07/04/17 Follow-up Location: remote Interview Reason: scheduled follow up Programmer Operator Numerical Control: [employer] Name: Darlene ARGUETA Model: 2240 Serial #: [id number] Implant Date: 05/13/14 Year(s): 3 Implant Physician: Dr. Salguero/Gregory Patient Characteristics AV/Node Indication: Second degree AV block Ejection fraction %: 50 to 54 By: Echo Underlying rhythm: Sinus bradycardia Pacemaker Dependent: No Device Characteristics Device: Dual Chamber Type: Pacemaker Remote Follow-Up: Porter.NET Leads Lead #1 Programmer Operator Numerical Control Lead 1: [employer] Model Lead 1: Serial# Lead 1: [id number] Date Implanted Lead 1: 05/03/14 Position Lead 1: RA Lead #2 Programmer Operator Numerical Control Lead 2: [employer] Model Lead 2: Serial# Lead 2: [id number] Date Implanted Lead 2: 05/13/14 Position Lead [...] Persistent atrial fibrillation I48.1 5. Atherosclerosis of [place] coronary artery of [place] heart without angina pectoris I25.10 07/27/17 0811 <Electronically signed by Ping Lopes > Date Ping Lopes 07/27/17 1845<Electronically signed by Sloan Rider MD> Cosigner Signature: Date (if applicable) Slaon Rider MD CC: PACEMAKER CHECK Observed: 06/08/2017 Status: F Source: [facility] 11:51 AM [facility] REPOSITORY [facility] [address] [place] [address] Pacemaker Check Date of Service: 05/12/17 1043 MR#: [id number] Acct: [id number] Name: BERT BRAVO Rep #: [id number] : 1940 From: Ping Lopes Age/Sex: 77/M [...] @ 82 ppm with underlying atrial flutter. JUNIOR SYSTEMS ENGINEER=98%. Battery longevity approx 8.6 to 9 years. Lead impedances and sensing remain stable. Pt is on Plavix but not on anticoagulant for atrial fib. Tasha Walls PA-C notified of above and called pt's daughter and scheduled o.v. Device Device Date Interviewed: 05/12/17 Follow-up Location: remote Interview Reason: scheduled follow up Programmer Operator Numerical Control: [employer] Name: Darlene ARGUETA Model: 2240 Serial #: [id number] Implant Date: 05/13/14 Year(s): 3 Implant Physician: Dr. Salguero/Gregory Patient Characteristics AV/Node Indication: Second degree AV block Ejection fraction %: 50 to 54 By: Echo Underlying rhythm: Sinus bradycardia Pacemaker Dependent: No Device Characteristics Device: Dual Chamber Type: Pacemaker Remote Follow-Up: Stevie.NET Leads Lead #1 Programmer Operator Numerical Control Lead 1: [employer] Model Lead 1: Serial# Lead 1: [id number] Date Implanted Lead 1: 05/03/14 Position Lead 1: RA Lead #2 Programmer Operator Numerical Control Lead 2: [employer] Model Lead 2: Serial# Lead 2: [id number] Date Implanted Lead 2: 05/13/14 Position Lead [...] atrioventricular block I44.1 3. Ischemic cardiomyopathy I25.5 05/12/17 1819 <Electronically signed by Ping Lopes > Date Ping Lopes 06/08/17 1151<Electronically signed by Sloan Rider MD> Cosigner Signature: Date (if applicable) Sloan Rider MD CC: CARDIOLOGY VISIT Observed: 05/20/2017 Status: F Source: JENNIFER REPORT 12:02 PM [facility] REPOSITORY [facility] [address] [place], [place] [address]. [address] [place] [address] OFFICE VISIT Date of Service: 05/18/17 MR#: [id number] Acct: [id number] Name: BERT BRAVO Rep #: [id number] : 1940 Provider: Tasha Walls Age/Sex: 77/M Location: [facility] Status: Signed HPI HPI Details: BERT BRAVO, [...] and proximal circumflex and proximal OM in 2015. He also has a history of ischemic [...] (Acute) Hypertension (Chronic) Atherosclerotic heart disease of [place] coronary artery without angina pectoris (Chronic) Hyperlipidemia [...] cardiac pacemaker Z95.0 Pacemaker implant 05/15/14 Plan - FABRICIO Rivera Pacemaker is functioning appropriately. We will continue to monitor at routine scheduled pacemaker interrogations. Will also continue to monitor his heart rate and rhythm with his pacemaker 4. Pure hypercholesterolemia E78.00; E78.0 Plan - FABRICIO Rivera Recent lipid profile demonstrates a total cholesterol of 135, HDL 56, LDL 61. Patient will continue with current medical management. 5. Atherosclerosis of [place] coronary artery of [place] heart without angina pectoris I25.10 Plan - FABRICIO Rivera Patient does not [...] E78.0 Hyperlipidemia type: pure hypercholesterolemia Atherosclerosis of [place] coronary artery of [place] heart without angina pectoris I25.10 [place] vs. transplanted heart: [place] heart Coding Level of Care Code Off vis,est,level 4 Diagnoses Persistent atrial fibrillation I48.1 Atrial fibrillation type: persistent Cardiomyopathy, ischemic I25.5 Presence of cardiac pacemaker Z95.0 Pure hypercholesterolemia E78.00; E78.0 Hyperlipidemia type: pure hypercholesterolemia Atherosclerosis of [place] coronary artery of [place] heart without angina pectoris I25.10 [place] vs. transplanted heart: [place] heart 03/24/18 1118 <Electronically signed by Tasha Walls PA> Date Tasha REGALADO 05/20/17 1202<Electronically signed by Ryan Gamble MD> Cosigner Signature: Date (if applicable) Ryan Gamble MD CC: Gaston Yip CBC W/DIFF, AUTOMATED Collected: 05/18/2017 Status: F Source: [facility] 2:08 PM [facility] REPOSITORY TYPE CODE TESTS RESULT OUT OF [...] Performed By: #### L100.0100, L500.2500, L501.5200 #### [facility] [address] [place], [place], [address] BASIC METABOLIC Collected: 05/18/2017 Status: F Source: CENTER PROFILE (BMP) 2:08 PM [facility] REPOSITORY TYPE CODE TESTS RESULT OUT OF [...] Performed By: #### L100.0100, L500.2500, L501.5200 #### [facility] [address] [place], [place], [address] MAGNESIUM Collected: 05/18/2017 Status: F Source: [facility] 2:08 PM [facility] REPOSITORY TYPE CODE TESTS RESULT OUT OF RANGE REFERENCE UNITS LAB L501.5200 1.6-2.6 mg/dL Normal MG 2.2 Result Comment: Please note revised Magnesium reference range effective 2017. Performed By: #### L100.0100, L500.2500, L501.5200 #### [facility] [address] [place], [place], [address] LIVER PROFILE Collected: 05/18/2017 Status: F Source: [facility] 2:08 PM [facility] REPOSITORY Order Comment: Order Date: 11/07/16 Order Info: [id number] - *Hepatic Function Panel Order Info: [id number] - *Lipid Profile CC PCP Comments: 12 [...] BILI 0.17 Performed By: #### L500.3400 #### [facility] [address] [place], [place], [address] LIPID PROFILE Collected: 05/18/2017 Status: F Source: [facility] 2:08 PM [facility] REPOSITORY Order Comment: Order Date: 11/07/16 Order Info: [id number] - *Hepatic Function Panel Order Info: [id number] - *Lipid Profile CC PCP Comments: 12 [...] VLDL 18 Performed By: #### L500.4100 #### [facility] [address] [place], [address] OFFICE VISIT REPORT Observed: 03/27/2017 Status: F Source: [facility] 8:13 AM [facility] REPOSITORY [facility] [facility] [address] [facility] [place] [address] OFFICE VISIT Date of Service: 03/21/17 MR#: [id number] Acct: [id number] Patient: BERT BRAVO Rep #: [id number] : 1940 Provider: Ping Lopes Age/Sex: 77/M [place] [facility] [place] [place] Status: Signed Comments Summary Comments: Remote Dual Chamber Pacemaker Evaluation: Interrogation shows no MS, no AT/AF or VHR episodes since 12/12/16. Presenting rhythm shows AAI pacing @ 63 ppm. JUNIOR SYSTEMS ENGINEER=96%. Battery longevity approx 8.8 yrs. Lead impedances, and sensing remain stable. Normal remote PPM function. Pt notified remote transmission received and next f/u appt scheduled for in 3 mos. Device Device Date Interviewed: 03/21/17 Follow-up Location: remote Interview Reason: scheduled follow up Programmer Operator Numerical Control: [employer] Name: Darlene ARGUETA Model: 2240 Serial #: [id number] Implant Date: 05/13/14 Year(s): 2 Implant Physician: Dr. Salguero/Gregory Patient Characteristics AV/Node Indication: Second degree AV block Ejection fraction %: 50 to 54 By: Echo (07/24/2015) Underlying rhythm: Sinus bradycardia Pacemaker Dependent: No Device Characteristics Device: Dual Chamber Type: Pacemaker Remote Follow-Up: Stevie.NET Leads Lead #1 Programmer Operator Numerical Control Lead 1: [employer] Rodrig[employer] Model Lead 1: Serial# Lead 1: [id number] Date Implanted Lead 1: 05/03/14 Position Lead 1: RA Lead #2 Programmer Operator Numerical Control Lead 2: [employer]. Rodrig[employer] Model Lead 2: Serial# Lead 2: [id number] Date Implanted Lead 2: 05/13/14 Position Lead [...] 03/27/17 0813<Electronically signed by Sloan Rider MD> Cosign Signature: Date (if applicable) Sloan Rider MD CC: ALLERGIES ALLERGIES DATE TYPE / CODE NAME / CODE REACTION SEVERITY SOURCE 03/19/2018 Drug lisinopril/F Low blood Unknown [facility] Allergy/4160 [id number](RX pressure Hospital 91669(SNOMED NORM) Repository CT) 03/19/2018 Drug isosorbide/F Low blood Unknown [facility] Allergy/4160 300811628(RX pressure Hospital 48522(SNOMED NORM) Repository CT) 03/19/2018 Drug citalopram/F Unknown [place] [facility] Allergy/4160 558831157(RX Hospital 53331(SNOMED NORM) Repository CT) Drug CELEXA/22638 psych Severe (Severity Bebeto Pomerene Allergy/4160 074(RXNORM) Modifier) [facility] 76797(SNOMED (Qualifier Repository CT) Value) ENCOUNTERS ENCOUNTERS ADMIT/DISCHARGE ACCOUNT NUMBER ADMITTING ENCOUNTER LOCATION SOURCE CLASS 03/19/2018 [id number] Ambulatory BMSBuilding: Jennifer BMS.CF.[facility] Repository 03/19/2018 [id number] Ambulatory [facility] ding:[facility] Repository 03/19/2018/03/19/19 [id number] Ambulatory BMSBuilding: Jennifer 19 BMS.[facility] Repository 03/06/2018/03/06/19 [id number] Ambulatory ABuilding:XR Gregory 19 [facility] Repository 02/01/2018/02/02/20 [id number] Ambulatory BMSBuilding: [place] 18 [facility] Repository 01/28/2018 [id number] Ambulatory BMSBuilding: [facility] Repository 01/22/2018/01/23/20 [id number] Emergency [address] ding:ED Repository 01/22/2018 [id number] Ambulatory BMSBuilding: [facility] Repository 01/18/2018/02/06/20 [id number] Yoan Valenzuela Inpatient [address] ding:TCURoom Repository : EWZ54Mhv: 1 01/14/2018/01/17/20 [id number] TEZ ALMAZAN, Inpatient ABuilding:CC Gregory [address] DR. MANNY Harvey Encounter URoom: Health 0358Bed: A [facility] Repository 01/14/2018/01/15/20 [id number] JIM, Emergency Buildin [facility] 18 HARSH M Room: ERBed: [facility] Repository 01/09/2018/01/14/20 [id number] ALFRED BARNES, MIN Inpatient ABuilding:CC Gregory 18 Encounter URoom: Health 0312Bed: A [facility] Repository 01/09/2018/01/10/20 [id number] Ambulatory ABuilding:XR Gregory 18 [facility] Repository 01/05/2018/01/06/20 [id number] GASTON YIP Ambulatory [facility] 18 [facility] Repository 12/28/2017/12/31/19 [id number] HELGA BARNES, Inpatient ABuilding:ME Gregory 18 ANDERSON Encounter 5NRoom: Health 5625Bed: A [facility] Repository 12/27/2017/12/28/19 [id number] Ambulatory BMSBuilding: [place] 18 BMS.[facility] Repository 12/20/2017/12/21/19 [id number] Ambulatory BMSBuilding: Jennifer 18 BMS.[facility] Repository 09/19/2017 [id number] Ambulatory [facility] ding:LABSPEC Repository 09/12/2017/09/13/19 [id number] Ambulatory BMSBuilding: Jennifer 18 BMS.[facility] Repository 09/12/2017/09/13/19 [id number] Ambulatory BMSBuilding: [place] 18 BMS.[facility] Repository 07/25/2017/07/26/19 [id number] Ambulatory BMSBuilding: [place] 18 BMS.[facility] Repository 06/22/2017 [id number] Ambulatory BMS [facility] Repository 05/18/2017/05/19/19 [id number] Ambulatory BMSBuilding: Jennifer 18 BMS.[facility] Repository 05/18/2017 [id number] Ambulatory [facility] ding:LAB Repository 05/12/2017/05/13/19 [id number] Ambulatory BMSBuilding: [place] 18 BMS.[facility] Repository 03/21/2017/03/21/19 [id number] Ambulatory BMSBuilding: Jennifer 18 BMS.[facility] Repository PAYERS PAYERS ENCOUNTER GUARANTOR PAYER SUBSCRIBER SOURCE 03/19/2018 BERT F Primary BERT F [place] [id number] SR Insurance:MEDICARE GIAUQUEDOB: [address] PART A olicy Number: [id number] Hospital 61169Yxy: (737) [id number] Repository [phone] () Date:2018-03-19 03/19/2018 Secondary BERT F [place] Insurance:MEDICAL GIAUQUEDOB: [facility] [id number] Hospital Number: Repository [id number] Date:9324-23-16SR[address] [address]LT: 03/19/2018 Tertiary NOT GIVENUNK [place] Insurance:SELF PAY [facility] Number: Effective Repository Date:2018-03-19 03/19/2018 BERT F Primary BERT F Jennifer [id number] SR Insurance:MEDICARE GIAUQUEDOB: [address] PART A olicy Number: [id number] Hospital 43961Cxd: 330 [id number] Repository [phone] () Date:2018-03-19 03/19/2018 Secondary BERT Weber [place] Insurance:MEDICAL GIAUQUEDOB: [facility] [id number] Hospital Number: Repository [id number] Date:1944-52-41IF[address] [address]RS: 03/19/2018 Tertiary NOT GIVENUNK [place] Insurance:SELF PAY [facility] Number: Effective Repository Date:2018-03-19 03/19/2018 BERT F Primary BERT F [place] [id number] SR Insurance:MEDICARE GIAUQUEDOB: [address] PART A olicy Number: [id number] Hospital 30466Nyb: (175) [id number] Repository [phone] (HP) Date:2017-09-12 03/19/2018 Secondary BERT F [place] Insurance:MEDICAL GIAUQUEDOB: [facility] [id number] Hospital Number: Repository [id number] Date:5356-87-34VF [address] [place] [address]IR: 03/19/2018 Tertiary NOT GIVENUNK Jennifer Insurance:SELF PAY [facility] Number: Effective Repository Date:2018-03-19 03/06/2018 BERT F Primary BERT Weber [facility] Insurance:MEDICARE GIAUQUE JRDOB: [facility] [id number] PART B INSCOPolicy [id number] Repository [address] Number: [address] [place] [address] [id number] [place] [address]~JESSE Date:2018-01-09 47736Rzk: ([phone]) G@[email or web address] DIVISIONel: [id number]-12-31plan [phone] Name:[facility] ()Tel: (000) (HP) [employer] 000-0000 (WP) [address] [place] [address] 92422OU: 03/06/2018 Secondary BERT Tia [facility] Insurance:MEDICAL [facility]: [facility] [id number] Repository INSCOPolicy Number: [address] [id number] [address] [place] [address] Date:2018-01-09 85481Ckd: [phone] [id number] [phone] Name:LPN PRIVATE DUTY Box ()Tel: 000 [place], [place] 000-0000 (WP) 90504VC: 02/01/2018 BERT F Primary BERT Weber [place] [id number] SR Insurance:MEDICARE GIAUQUEDOB: [address] PART A BPolicy Number: [id number] Hospital 109[address]Wul: (417) [id number] Repository [phone] (HP) Date:2018-02-01 02/01/2018 Secondary BERT Weber Jennifer Insurance:MEDICAL GIAUQUEDOB: [facility] [id number] Hospital Number: Repository [id number] Date:8388-27-70PV [address] [place] [address]OM: 02/01/2018 Tertiary NOT GIVENUNK Jennifer Insurance:SELF PAY [facility] Number: Effective Repository Date:2018-02-01 01/28/2018 BERT F Primary BERT F Jennifer [id number] Insurance:MEDICARE GIAUQUEDOB: [facility] PART A BPolicy Number: [id number] [id number] Repository [address]Hrl: 330) Date:2018-01-18 [phone] (HP) 01/28/2018 Secondary BERT F Jennifer Insurance:MEDICAL GIAUQUEDOB: [facility] [id number] Hospital Number: Repository [id number] Date:7532-24-03ME [facility] [address] [place] [address]QX: 01/28/2018 Tertiary NOT GIVENUNK [place] Insurance:SELF PAY [facility] Number: Effective Repository Date:2018-01-28 01/22/2018 BERT F Primary BERT F Jennifer [id number] SR Insurance:MEDICARE GIAUQUEDOB: [address] PART A BPolicy Number: [id number] Hospital 74614Ves: ([phone]) [id number] Repository [phone] (HP) Date:2018-01-22 01/22/2018 Secondary NATIVIDAD J Jennifer Insurance:AULTCAREPoli GIAUQUEDOB: [facility] Number: [id number] Hospital [id number] Repository Date:6821-97-09PJ [facility] [address] [place] [address]VA: 01/22/2018 Tertiary BERT F Jennifer Insurance:MEDICAL GIAUQUEDOB: [facility] [id number] Hospital Number: Repository [id number] Date:0889-66-93AR [facility] [address] [place] [address]MI: 01/22/2018 Tertiary NOT GIVENUNK [place] Insurance:SELF PAY [facility] Number: Effective Repository Date:2018-01-22 01/22/2018 BERT F Primary BERT Weber Jennifer [id number] SR Insurance:MEDICARE GIAUQUEDOB: [address] PART A BPolicy Number: [id number] Hospital 010[address]Umm: 330 [id number] Repository [phone] (HP) Date:2018-01-22 01/22/2018 Secondary BERT Tia [place] Insurance:MEDICAL GIAUQUEDOB: [facility] [id number] Hospital Number: Repository [id number] Date:9881-14-91CU [address] [place] [address]NS: 01/22/2018 Tertiary NOT GIVENUNK Jennifer Insurance:SELF PAY [facility] Number: Effective Repository Date:2018-01-22 01/18/2018 BERT F Primary BERT F [place] [id number] Insurance:MEDICARE GIAUQUEDOB: [facility] PART A BPolicy Number: [id number] [id number] Repository 258[address]Nxf: (280) Date:2018-01-18 [phone] () 01/18/2018 Secondary BERT Weber [place] Insurance:MEDICAL GIAUQUEDOB: [facility] [id number] Hospital Number: Repository [id number] Date:8956-11-71EK [address] [place] [address]FH: 01/18/2018 Tertiary NOT GIVENUNK [place] Insurance:SELF PAY [facility] Number: Effective Repository Date:2018-01-18 01/14/2018 BERT F Primary BERT Weber [facility] Insurance:MEDICARE GIAUQUE JRDOB: [facility] [id number] PART A INSCOPolicy [id number] Repository [address] Number: [address] [place] [address] [id number] [address] [place] [address]~JESSE Date:2017-12-28 68590Dpp: (208) G@[facility] HOSPITALel: [id number] [phone] Name:MMail Code AG (HP)Tel: (000) (HP) [address] 000-0000 (WP) 257441[place]mxoh, [place] [address]XS: 01/14/2018 Secondary BERT Deng [facility] Insurance:MEDICARE [facility] B [facility] [id number] Repository Number: [id number] [address] [place] [address] Date:2017-12-28 63496Ypd: [phone] [id number] 1 Name:PCGS (HP)Tel: (000) Administrators LLCPO 000-0000 (WP) [address] [address]Lswwzbgmj, [place] [address]EX: 01/14/2018 Tertiary BERT Deng Health Insurance:MEDICAL [facility]: [facility] [id number] Repository INSCOPolicy Number: 11 [facility] R[address] [id number] [place], [place] Date:2017-12-2855126Lno: [phone] [phone] Name:LPN PRIVATE DUTY Box (HP)Tel: (000) [place], [place] 000-0000 (WP) 7[address]VM: 01/14/2018 BERT Weber Primary Insurance:[facility] BERT Kaba GIAUQUEDOB: MEDICARE GIAUQUEDOB: [facility] [id number] OUTPATIENTPolicy [id number] Number: [address] Repository [place], [place] [id number] ELADIOADVENTHEALTH OTTAWAFRANKIEGates [place], [place] [address]Hsj: (330) Date:Plan Name: [id number] () 01/14/2018 Secondary JR BERT Kaba Insurance:MEDICAL GIAUQUEDOB: [facility] [employer] MEDICARE [id number] [facility] OUTPATIENTPoly ST RT Repository Number: [place], [place] [id number] [address] Date: 01/09/2018 BERT F Primary BERT Weber [facility]: Insurance:MEDICARE [facility]: [facility] PART A INSCOPolicy [id number] Repository [address] R[address] Number: 11 [facility] [address] [place] [address] [id number] [place], [place] [address]~JESSE Date:2016-09-10446287079Wzv: 330 Leia@[facility]UN[facility] HOSPITALel: [id number] [phone] Name:MMail Code AG (HP)Tel: (000) (HP) [address] 000-0000 (WP) 139923[place]ugvrsdo, [place] [address]FU: 01/09/2018 Secondary [facility] Insurance:MEDICARE [facility]: [facility] PART B [facility] [id number] Repository Number: [address] [id number] [place], [place] Date:2016-09-1051967Kbp: [phone] [id number] [phone] Name:PCGS (HP)Tel: (000) Administrators LLCPO 000-0000 (WP) [address] [place] [address] 28123IZ: 01/09/2018 [facility] BERT Weber [facility] Insurance:MEDICAL [facility]ITALD[facility]: [facility] [id number] Repository INSCOPolicy Number: [address] [id number] [place], [place] Date:2016-09-1038087Toj: [phone] [id number] [phone] Name:LPN PRIVATE DUTY Box (HP)Tel: (000) [place], [place] 000-0000 (WP) 16[address]FW: 01/09/2018 BERT Primary BERT Weber [facility]: Insurance:MEDICARE [facility]: [facility] PART B INSCOPolicy [id number] Repository [address] Number: [address] [place] [address] [id number] [place], [place] [address]FR[place]KE[place] [address]~DARLETTAK Date:2017-12-2925908Jax: (289) [email or web address] DIVISIONel: [id number] [phone] Name:PCGS (HP)Tel: (000) (HP) Administrators LLCPO 000-0000 (WP) [address] [place] [address] 39[address]NC: 01/09/2018 Secondary BERT Weber [facility] Insurance:MEDICAL GIAUQUE JRDOB: [facility] [id number] Repository INSCOPolicy Number: [address] [id number] NICOLFRANKIEBIG [place] Date:2017-12-2932423Yox: [phone] [phone] Name:LPN PRIVATE DUTY Box ()Tel: 000 [address], [place] 000-0000 (WP) 35[address]WF: 01/05/2018 BERT Tia Primary Insurance:500 BERT Kaba GIAUQUEDOB: MEDICARE GIAUQUEDOB: [facility] OUTPATIENTPolmanning [facility] [id number] [facility] ST RT Number: [facility] Repository [place] [id number] ELADIOADVENTHEALTH OTTAWAFRANKIEGates [place], [place] [address]Gok: (735) Date:Plan Name: [id number] [phone] () 01/05/2018 Secondary BERT Kaba Insurance:MEDICAL GIAUQUEDOB: [facility] [id number] [facility] OUTPATIENTPolicy [address] Repository Number: [place] [id number] Date:Plan Name: 12/28/2017 BERT Tia Primary [facility]ERT Weber [facility] Insurance:MEDICARE GIAUBOUNDARY COMMUNITY HOSPITALB: [facility] PART APolicy Number: [id number] Repository [address] [id number] [address] [place] [address] Date:2016-09-10 [place] [address]~DARLETTAK 9632-46-57Eequ 27669Vhp: ([phone]) [email or web address]: Name:[facility] Daytonil Code [phone] [address] (HP)Tel: (000) (HP) 097581GsuahljjARNAUDVILLE, [place] 000-0000 (WP) [address]CA: 12/28/2017 Secondary BERT Tia [facility] Insurance:MEDICARE GIAUQUE JRDOB: [facility] PART BPolicy Number: [id number] Repository [id number] [address] Date:2017-12-28 - [address] [place] [address] 2584-30-06Ythy 39839Wve: (330) Name:[facility] [phone] Administrators LLCPO (HP)Tel: (000) [address] [address]Pofwdidyq, [place] 000-0000 (WP) [address]VI: 12/28/2017 Tertiary BERT Deng Health Insurance:MEDICAL [facility]: [facility] [id number] Repository INSCOPolicy Number: [address] [id number] [address] [place] [address] Date:2017-12-28 85161Qpz: 330 5031-70-21Wjte [phone] Name:LPN PRIVATE DUTY Box (HP)Tel: (000) [place], [place] 000-0000 (WP) [address]FI: 12/27/2017 BERT F Primary BERT F Jennifer [id number] SR Insurance:MEDICARE GIAUHENDRICKS COMMUNITY HOSPITALB: [address] PART A BPolicy Number: [id number] Hospital 01936Yxe: (330) [id number] Repository [phone] (HP) Date:2018-01-11 12/27/2017 Secondary BERT F [place] Insurance:MEDICAL GIAUQUEDOB: [facility] [id number] Hospital Number: Repository [id number] Date:0285-47-00UY [address] [place] [address]CS: 12/27/2017 Tertiary NOT GIVENUNK Jennifer Insurance:SELF PAY [facility] Number: Effective Repository Date:2018-01-11 12/20/2017 BERT F Primary BERT Weber Jennifer [id number] SR Insurance:MEDICARE GIAUQUEDOB: [address] PART A BPolicy Number: [id number] Hospital [address]Umc: (814) [id number] Repository [phone] (HP) Date:2017-12-05 12/20/2017 Secondary BERT F Jennifer Insurance:MEDICAL GIAUQUEDOB: Community [facility] [id number] Hospital Number: Repository [id number] Date:7205-90-50QO [address] [place] [address]BE: 12/20/2017 Tertiary NOT GIVENUNK Jennifer Insurance:SELF PAY [facility] Number: Effective Repository Date:2017-12-20 09/19/2017 BERT F Primary BERT Weber [place] [id number] SR Insurance:MEDICARE GIAUQUEDOB: [address] PART A BPolicy Number: [id number] Hospital [address]Cqn: ([phone]) [id number] Repository [phone] (HP) Date:2017-09-19 09/19/2017 Secondary NATIVIDAD J [place] Insurance:AULTCAREPoli GIAUQUEDOB: Community cy Number: [id number] Hospital [id number] Repository Date:5111-86-34SZ [address] [place] [address]RQ: 09/19/2017 Tertiary NOT GIVENUNK Jennifer Insurance:SELF PAY [facility] Number: Effective Repository Date:2017-09-19 09/12/2017 BERT F Primary BERT Weber Jennifer [id number] [place] Insurance:MEDICARE GIAUQUEDOB: [address] PART A olicy Number: [id number] Hospital [address]Ciy: ([phone]) [id number] Repository [phone] (HP) Date:2017-02-06 09/12/2017 Secondary NATIVIDAD J [place] Insurance:AULTCAREPoli GIAUQUEDOB: Community cy Number: [id number] Hospital [id number] Repository Date:7172-54-55CB [facility] [address] [place] [address]YA: 09/12/2017 Tertiary NOT GIVENUNK [place] Insurance:SELF PAY [facility] Number: Effective Repository Date:2017-09-12 09/12/2017 BERT F Primary BERT Weber Jennifer [id number] [place] Insurance:MEDICARE GIAUQUEDOB: [address] PART A BPolicy Number: [id number] Hospital 25370Pqi: (189) [id number] Repository [phone] (HP) Date:2017-03-24 09/12/2017 Secondary NATIVIDAD J [place] Insurance:AULTCAREPoli GIAUQUEDOB: Community cy Number: [id number] Hospital [id number] Repository Date:3996-85-46AP [facility] [address] [place] [address]MX: 09/12/2017 Tertiary NOT GIVENUNK [place] Insurance:SELF PAY [facility] Number: Effective Repository Date:2017-07-14 07/25/2017 BERT F Primary BERT Weber [place] [id number] [place] Insurance:MEDICARE GIAUQUEDOB: [address] PART A BPolicy Number: [id number] Hospital 244[address]Zmy: (178) [id number] Repository [phone] (HP) Date:2017-07-25 07/25/2017 Secondary NATIVIDAD J Jennifer Insurance:AULTCAREPoli GIAUQUEDOB: Community cy Number: [id number] Hospital [id number] Repository Date:5069-15-33AM [facility] [address] [place] [address]TW: 07/25/2017 Tertiary NOT GIVENUNK Jennifer Insurance:SELF PAY [facility] Number: Effective Repository Date:2017-07-25 06/22/2017 BERT F Primary BERT Weber Jennifer [id number] [place] Insurance:MEDICARE GIAUQUEDOB: [address] PART A BPolicy Number: [id number] Hospital [address]Ylq: (875) [id number] Repository [phone] (HP) Date:2017-06-22 06/22/2017 Secondary NATIVIDAD J Jennifer Insurance:AULTCAREPoli GIAUQUEDOB: Community cy Number: [id number] Hospital [id number] Repository Date:8997-26-10MX [facility] [address] [place] [address]EA: 06/22/2017 Tertiary NOT GIVENUNK [place] Insurance:SELF PAY [facility] Number: Effective Repository Date:2017-06-22 05/18/2017 BERT F Primary BERT F Jennifer [id number] [place] Insurance:MEDICARE GIAUQUEDOB: [address] PART A BPolicy Number: [id number] Hospital 330[address]Dif: (923) [id number] Repository [phone] (HP) Date:2017-05-12 05/18/2017 Secondary NATIVIDAD J [place] Insurance:AULTCAREPoli GIAUQUEDOB: Community cy Number: [id number] Hospital [id number] Repository Date:7714-11-05LF [facility] [address] [place] [address]IV: 05/18/2017 Tertiary NOT GIVENUNK [place] Insurance:SELF PAY [facility] Number: Effective Repository Date:2017-05-18 05/18/2017 BERT F Primary BERT Weber Jennifer [id number] [place] Insurance:MEDICARE GIAUQUEDOB: [address] PART A BPolicy Number: [id number] Hospital 417[address]Qml: (201) [id number] Repository [phone] (HP) Date:2017-05-18 05/18/2017 Secondary NATIVIDAD J Jennifer Insurance:AULTCAREPoli GIAUQUEDOB: Community cy Number: [id number] Hospital [id number] Repository Date:1224-36-89[address], [place] [address]UJ: 05/18/2017 Tertiary NOT GIVENUNK [place] Insurance:SELF PAY [facility]: Effective Repository Date:2017-05-18 05/12/2017 BERT F Primary BERT Weber [place] [id number] [place] Insurance:MEDICARE GIAUQUEDOB: Community ROUTE [address] BPolicy Number: [id number] [id number] Repository [address]Qlw: ([phone] Date:2017-05-128 () 05/12/2017 Secondary NATIVIDAD J [place] Insurance:AULTCAREPoli GIAUQUEDOB: Community cy Number: [id number] [id number] Repository Date:[id number] [address] [place] [id number]: 05/12/2017 Tertiary NOT GIVENUNK [place] Insurance:SELF PAY [facility] Number: Effective Repository Date:2017-05-12 03/21/2017 BERT F Primary BERT Weber [place] [id number] [place] Insurance:MEDICARE GIAUQUEDOB: Community ROUTE PART A BPolicy Number: [id number] [id number] Repository [id number]: [phone]) Date:2017-01-303437 () 03/21/2017 Secondary NATIVIDAD J [place] Insurance:AULTCAREPoli GIAUQUEDOB: Community cy Number: [id number] [id number] Repository Date:[id number] [address] [place] [id number]: 03/21/2017 Tertiary NOT GIVENUNK [place] Insurance:SELF PAY [facility] Number: Effective Repository Date:2017-01-30
== END ==
PROVIDERS: Family Provider Family Medicine; PCP Family Medicine; Referring Provider Nurse Practitioner Family; Visit Provider Nurse Practitioner Family
DX: R07.9 Chest pain, unspecified (principal); I25.10 Atherosclerotic heart disease of native coronary artery without angina pectoris; I25.5 Ischemic cardiomyopathy; E78.5 Hyperlipidemia, unspecified; Z95.0 Presence of cardiac pacemaker
CPT/HCPCS: 93306

== ENCOUNTER → 2018-04-09 16:45 | Outpatient (CLI) | payer MEDICARE, OTHER, SELFPAY ==
[2018-03-19 13:41] VITALS: BMI 27.3
== END ==
PROVIDERS: Family Provider Family Medicine; PCP Family Medicine; Referring Provider Urology; Visit Provider Urology
DX: R31.9 Hematuria, unspecified (principal)
CPT/HCPCS: 87077; 87086; 87088; 87186

== ENCOUNTER → 2018-04-10 12:46 | Outpatient (CLI) | payer MEDICARE, OTHER, SELFPAY ==
[2018-03-19 13:41] VITALS: BMI 27.3
--- NOTE | 2018-04-10 12:56 | CT_ITS ---
STUDY: CT ABDOMEN AND PELVIS WITH AND WITHOUT CONTRAST REASON FOR EXAM: Male, 78 years old. Hematuria RADIATION DOSAGE (If Supplied By Facility): CTDIvol = ( 13.09 ) mGy, DLP = ( 2194.75 ) mGycm TECHNIQUE: Transaxial images were obtained from the dome of the diaphragm to the symphysis pubis without oral contrast. 100 ml of Isovue 300 contrast was administered. Sagittal and coronal images were reconstructed. Imaging was obtained postcontrast in the portal venous and renal excretory phase. Individualized dose optimization techniques were used for this CT. COMPARISON: None. FINDINGS: Body wall soft tissues: No acute process. Osseous structures: Mild scoliosis, osteopenia, multilevel bridging anterior osteophytes of the low thoracic spine in a pattern consistent with diffuse idiopathic skeletal hyperostosis, mild to moderate multilevel lumbar degenerative disc disease with mild facet arthropathy/hypertrophy contributing to foraminal narrowing at multiple levels of the mid to low lumbar spine. 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 Mild hip joint degenerative changes. Inferior chest: Lung bases clear. Normal distal esophagus. Mild cardiomegaly. Suspicion of old apical left ventricular infarct with evidence of fibrofatty changes in the wall of the apex and thinning of the apex with a small nodular hypoattenuating focus at the apex suggesting the presence of apical thrombus, measuring 13 mm. Kerr image saved to the PACS archive. Prominent coronary atherosclerosis, three-vessel. Stents are present. Correlate stent history. Mild calcifications of the aortic valve annulus without significant calcification of the leaflets. Nondilated ascending aorta. Hepatobiliary: Benign right hepatic cyst measuring approximately 12 mm. Unremarkable gallbladder and biliary tree. Pancreas: Moderately severe atrophy. Spleen: Normal. Adrenal glands: Normal. Urogenital: Tiny right renal lower pole cyst 2 small for definitive imaging characterization, measuring approximate 7 mm, grossly simple cystic features. Mild symmetric renal cortical thinning. Symmetric nephrograms and excretion of contrast. Normal collecting systems, ureters. Mild circumferential thickening and minimal trabeculation of the wall the urinary bladder. Mild prostatomegaly. Unremarkable seminal vesicles. Pelvic floor and sidewalls and retroperitoneum: No mass or adenopathy. Vasculature: The abdominal aorta is somewhat tortuous. There is no aneurysm. There is mild atherosclerosis. Normal portal venous and mesenteric venous arborization, iliac veins and IVC. Stomach: No acute process. Small bowel and mesentery: No acute process. Large bowel: Normal appendix. Sigmoid diverticulosis without diverticulitis. Normal rectum. Free fluid or free air: None. CT/CT Abd/Pelvis W/WO Contrast IMPRESSION: No definitive acute urogenital abnormality is evident. Etiology of the patient's hematuria is not revealed on this study. No other acute abdominopelvic process is evident. 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 Electronically Signed: Jonny Kaplan MD at 16:38 EST Tel , Service support ,
== END ==
PROVIDERS: Family Provider Family Medicine; PCP Family Medicine; Referring Provider Urology; Visit Provider Urology
DX: R31.0 Gross hematuria (principal)
CPT/HCPCS: 74178; Q9967

== ENCOUNTER → 2018-04-27 12:50 | Outpatient (CLI) | payer MEDICARE, OTHER, SELFPAY ==
[2018-03-19 13:41] VITALS: BMI 27.3
== END ==
PROVIDERS: Family Provider Family Medicine; PCP Family Medicine; Referring Provider Nurse Practitioner Family; Visit Provider Nurse Practitioner Family
DX: I51.3 Intracardiac thrombosis, not elsewhere classified (principal); I25.10 Atherosclerotic heart disease of native coronary artery without angina pectoris; I25.5 Ischemic cardiomyopathy
CPT/HCPCS: 93308; Q9957; A4216; C8924

== ENCOUNTER → 2018-06-12 | Outpatient (CLI) | payer MEDICARE, OTHER, SELFPAY ==
[2018-03-19 13:41] VITALS: BMI 27.3
== END | disposition home or self-care (01) ==
LOC: SDC 07:35
PROVIDERS: Family Provider Family Medicine; PCP Family Medicine; Referring Provider Urology; Visit Provider Urology
DX: Z53.9 Procedure and treatment not carried out, unspecified reason (principal)

== ENCOUNTER → 2018-06-13 | Outpatient (CLI) | payer MEDICARE, OTHER, SELFPAY ==
[2018-03-19 13:41] VITALS: BMI 27.3
--- NOTE | 2018-06-13 10:47 | ECHOL_ITS ---
Reason For Study: LV THROMBUS Procedure This was a limited 2D transthoracic echocardiogram. Contrast injection was performed. The study was technically difficult. Limited views were obtained. Exam performed in department. Left Ventricle Mild segmental systolic dysfunction (see wall motion). The estimated ejection fraction is 45 %. Unable to assess diastolic dysfunction. Posterior-Basal: Hypokinetic. Infero-Basal: Hypokinetic. Mid-Anterior : Hypokinetic. Mid-Lateral : Hypokinetic. Mid-Posterior: Hypokinetic. Mid-Inferior: Hypokinetic. Mid-inferoseptal : Hypokinetic. Anterior [place] : Akinetic. Inferior [place] : Akinetic. Lateral [place] : Hypokinetic. Septal [place] : Akinetic. Right Ventricle Mildly dilated right ventricle. ICD or pacer leads identified within the right ventricle. Normal systolic function. Atria The left atrium is mildly enlarged. Normal right atrium. ICD or pacer leads identified within the right atrium. Mitral Valve There is no mitral annular calcification. Normal mitral valve. Tricuspid Valve Normal tricuspid valve. Right ventricular systolic pressure estimated to be 26 mmHg. Aortic Valve Trisinus/trileaflet aortic valve. Mild focal aortic valve calcification. Pulmonic Valve The pulmonic valve is not well visualized. Pericardium/Pleural No pericardial effusion. Medication 22 gauge I.V. with prn adaptor inserted into right arm. Diluted definity 8ml given slow IV push to enhance endocardial definition. MMode/2D Measurements & Calculations LVAd ap4: 38.5 cm2 SV(MOD-sp4): 57.8 ml SV(sp4-el): 62.6 ml EDV(MOD-sp4): 133.8 ml EDV(sp4-el): 139.2 ml LVAs ap4: 27.9 cm2 ESV(MOD-sp4): 75.9 ml ESV(sp4-el): 76.6 ml EF(MOD-sp4): 43.2 % EF(sp4-el): 45.0 % Doppler Measurements & Calculations TR max german: 239.5 cm/sec TR max P.9 mmHg Interpretation Summary The study was technically difficult. Contrast injection was performed. Limited views were obtained. Mild segmental systolic dysfunction (see wall motion). The estimated ejection fraction is 45 %. Mildly dilated right ventricle. The left atrium is mildly enlarged. Mild focal aortic valve calcification. Right ventricular systolic pressure estimated to be 26 mmHg. Unable to assess diastolic dysfunction. Comment: Based upon the 2D echocardiographic images/contrast-enhanced images obtained there does not appear to be obvious findings at this time, as there were on the previous transthoracic echocardiogram from 04-27-18, appearing compatible with a left ventricular apical thrombus. Ordering Physician: Solan Hager Referring Physician: ISMA PARK Performed By: Patricia Gómez RDCS
== END | disposition home or self-care (01) ==
LOC: CVS 10:45
PROVIDERS: Family Provider Family Medicine; PCP Family Medicine; Referring Provider Internal Medicine Cardiovascular Disease; Visit Provider Internal Medicine Cardiovascular Disease
DX: I51.3 Intracardiac thrombosis, not elsewhere classified (principal); I25.10 Atherosclerotic heart disease of native coronary artery without angina pectoris; I10 Essential (primary) hypertension; I21.4 Non-ST elevation (NSTEMI) myocardial infarction; I25.5 Ischemic cardiomyopathy
CPT/HCPCS: 93308; Q9957; A4216; C8924

== ENCOUNTER → 2018-07-05 11:36 | Outpatient (CLI) | payer MEDICARE, OTHER, SELFPAY ==
[2018-03-19 13:41] VITALS: BMI 27.3
[2018-07-05 12:37] LABS: Hematocrit 41.6 % (40-54); Hemoglobin 13.9 g/dl (13.0-16.5); Mean Corp Hgb Conc 33.4 g/gl (32-36); Mean Corpuscular Hgb 30.4 pg (27.0-32.0); Mean Platelet Vol. 9.2 fl (6.2-12.0); Platelet Count 200 K/mm3 (150-450); RBC Distribution Width CV 13.1 % (11.6-14.6); Red Blood Count 4.57 M/mm3 (4.6-6.2); White Blood Count 5.6 K/mm3 (4.4-11.0)
[2018-07-05 12:43] LABS: Scan Indicated on CBC? Y/N NO
[2018-07-05 12:56] LABS: Anion Gap 6 (5-15); BUN 15 mg/dL (7-18); BUN/Creat Ratio 13.3 RATIO (10-20); Calcium,Total 8.9 mg/dL (8.5-10.1); Chloride 107 mmol/L (98-107); Creatinine, Serum 1.13 mg/dL (0.70-1.30); EST Glomerular Filtration Rate 66 mL/min (>60); Est Glom Filt Rate - Afr Amer 80 mL/min (>60); Glucose 176 mg/dL (74-106); PSA,Total- Diagnostic 0.33 ng/mL (0.0-4.0); Potassium 4.4 mmol/L (3.5-5.1); Sodium Level 139 mmol/L (136-145)
== END ==
PROVIDERS: Family Provider Family Medicine; PCP Family Medicine; Referring Provider Urology; Visit Provider Urology
DX: N40.1 Benign prostatic hyperplasia with lower urinary tract symptoms (principal); R31.0 Gross hematuria
CPT/HCPCS: 36415; 80048; 84153; 85027; 87077; 87086; 87088; 87186

== ENCOUNTER → 2018-07-31 | Outpatient (CLI) | payer MEDICARE, OTHER, SELFPAY ==
[2018-07-05 13:29] VITALS: BMI 28.3
--- NOTE | 2018-07-31 12:41 | ADU_ITS ---
Reason For Study: Atherosclerosis Right Velocities Left Velocities Ext. Iliac Artery, dist = 59.2 cm./sec. Ext Iliac Artery, dist = 55.6 cm./sec. Common Femoral Artery, mid = 42.4 cm./sec. Common Femoral Artery, mid = 59.4 cm./sec. Supf Femoral Artery, prox = 68.7 cm./sec. Supf. Femoral Artery, prox = 59.2 cm./sec. Supf Femoral Artery, mid = 74.7 cm./sec. Supf. Femoral Artery, mid = 63.6 cm./sec. Supf Femoral Artery, dist. = 45.3 cm./sec. Supf. Femoral Artery, dist = 40.5 cm./sec. Profunda Femoral Artery = 32 cm./sec. Profunda Femoral Artery = 32 cm./sec. Popliteal Artery, prox. = 27.7 cm./sec. Popliteal Artery, proximal, = 42.7 cm./sec. Popliteal Artery, mid = 29.1 cm./sec. Popliteal Artery, mid = 36.1 cm./sec. Popliteal Artery, dist = 44.4 cm./sec. Popliteal Artery, distal = 29.6 cm./sec. Ant. Tibial Artery, prox = 54.9 cm./sec. Ant.Tibial Artery, prox = 46.5 cm./sec. Ant. Tibial Artery, mid = 72.6 cm./sec. Ant Tibial Artery, mid = 50.2 cm./sec. Ant. Tibial Artery, dist = 52.8 cm./sec. Ant. Tibial Artery, distal = 56.3 cm./sec. Post. Tibial Artery, prox = 34.8 cm./sec. Post. Tibial Artery, prox = 78.5 cm./sec. Post. Tibial Artery, mid = 98.4 cm./sec. Post Tibial Artery, mid = 76 cm./sec. Post. Tibial Artery, dist = 89.2 cm./sec. Post Tibial Artery, dist. = 79.7 cm./sec. Peroneal Artery, prox = 31.3 cm./sec. Peroneal Artery, prox = 47.8 cm./sec. Peroneal Artery, mid = 30.4 cm./sec. Peroneal Artery, mid = 47.8 cm./sec. Procedure Exam performed in department. Comments Unable to visualize bilateral distal peroneal arteries due to vessel size. Interpretation Summary 1. bilateral legs with no stenosis. Ordering Physician: Torsten Gould Referring Physician: Gaston Yip MD Performed By: Jesenia Pulido RVT
--- NOTE | 2018-07-31 12:41 | CDU_ITS ---
Reason For Study: Carotid stenosis Rt. Velocities/BP Lt. Velocities/BP Prox CCA 78.6/17.3 cm/sec. Prox CCA 91.5/23.4 cm/sec. Mid CCA 71.7/16.8 cm/sec. Mid CCA 67.3/16.8 cm/sec. Dist CCA 50.4/11.6 cm/sec. Dist CCA 62.9/17.9 cm/sec. Prox ICA 35.8/15.9 cm/sec. Prox ICA 52.2/12.6 cm/sec. Mid ICA 59.8/23 cm/sec. Mid ICA 44.7/16.3 cm/sec. Dist ICA 62.2/22.2 cm/sec. Dist ICA 65.5/28.6 cm/sec. Rt. ICA/CCA = 0.9. Lt. ICA/CCA = 1.0. Prox ECA 59.8/9.7 cm/sec. Prox ECA 66.2/10.2 cm/sec. Rt. Vert. 29.8/10.2 cm/sec. Lt. Vert. 20.3/8.2 cm/sec. Right Extracranial There is homogeneous, smooth atherosclerotic plaque noted in the right common carotid artery. There is intimal thickening but no significant atherosclerotic plaque noted in the right internal carotid artery. There is intimal thickening but no significant atherosclerotic plaque noted in the right external carotid artery. Antegrade flow is noted in the right vertebral artery. Left Extracranial There is heterogeneous, smooth atherosclerotic plaque noted in the left common carotid artery. There is intimal thickening but no significant atherosclerotic plaque noted in the left internal carotid artery. There is intimal thickening but no significant atherosclerotic plaque noted in the left external carotid artery. Antegrade flow is noted in the left vertebral artery. Procedure Carotid Duplex 28400. Exam performed in department. Interpretation Summary Mild (<50%) stenosis right extracranial internal carotid. Mild (<50%) stenosis left extracranial internal carotid. Flow within the vertebral arteries is antegrade bilaterally. Ordering Physician: Torsten Gould Referring Physician: Gaston Yip MD Performed By: Jesenia Pulido RVT
--- NOTE | 2018-07-31 12:41 | ART_ITS ---
Reason For Study: Atheroslcerosis Procedure A bilateral lower extremity continuous wave Doppler with analog waveform analysis and ankle brachial indexes. Left Segmental Pressures Left brachial= 132mmHg. Left posterior tibial artery = 166mmHg. Left dorsalis pedis artery = 155mmHg. The left dorsalis pedis waveforms are triphasic. The left posterior tibial artery waveforms are triphasic. Right Segmental Pressures Right brachial= 117mmHg. Right posterior tibial artery = 167mmHg. Right dorsalis pedis artery = 154mmHg. The right dorsalis pedis waveforms are triphasic. The right posterior tibial artery waveforms are triphasic. Indices The right ankle brachial index by the dorsalis pedis is 1.17. The right ankle brachial index by the posterior tibial artery is 1.27. The left ankle brachial index by the dorsalis pedis is 1.17. The left ankle brachial index by the posterior tibial artery is 1.26. Interpretation Summary 1. No significnt occlussive disease bilateral legs with triphasic flow and [place] 1.27/1.26. Ordering Physician: Torsten Gould Referring Physician: Gaston Yip MD Performed By: Jesenia Pulido RVT
== END | disposition home or self-care (01) ==
LOC: CVS 12:39
PROVIDERS: Family Provider Family Medicine; PCP Family Medicine; Referring Provider Surgery Vascular Surgery; Visit Provider Surgery Vascular Surgery
DX: I65.23 Occlusion and stenosis of bilateral carotid arteries (principal); I70.231 Atherosclerosis of native arteries of right leg with ulceration of thigh
CPT/HCPCS: 93880; 93922; 93925

== ENCOUNTER 2018-11-12 10:05 | Day surgery (SDC) | payer MEDICARE, OTHER, SELFPAY ==
[2018-07-05 13:29] VITALS: BMI 28.3
[2018-11-12 11:05] VITALS: BP 133/90; PULSE 61; RESP 16; TEMP 36.3; O2SAT 95; BMI 28.0
[2018-11-12] MEDS: Lactated Ringers 1,000 ML 100 ML IV (11:18)
[2018-11-12 11:26] LABS: Bedside Glucose 126 mg/dL (70-110)
--- NOTE | 2018-11-12 11:30 | RAD_ITS ---
PROCEDURE: Caudal block. DATE OF EXAMINATION: November 12, 2018. INDICATION: Male, 78 years old. Low back pain. FLUOROSCOPY TIME (if supplied): (0:08) minutes/seconds. 3 intraoperative images were obtained. Intraoperative imaging provided for caudal block. RAD/Fluor Guidance for Spine Inj IMPRESSION: Intraoperative imaging provided for caudal block. Electronically Signed: Elpidio Nunez, at 15:57 EDT , Service support ,
[2018-11-12] MEDS: Bupivacaine 0.25% 30 ML Vial (11:50)
[2018-11-12] MEDS: MethylPREDNISolone Acetate 80 MG/ML Vial (11:50)
[2018-11-12 11:57] VITALS: BP 120/94; BP 133/90; PULSE 60; RESP 16; TEMP 36.2; O2SAT 100
[2018-11-12 12:00] VITALS: BP 127/94; BP 133/90; PULSE 60; RESP 16; O2SAT 97
[2018-11-12 12:05] VITALS: BP 133/90; BP 134/88; PULSE 60; RESP 16; O2SAT 97
[2018-11-12 12:11] VITALS: BP 133/90; BP 135/99; PULSE 60; RESP 16; TEMP 36.2; O2SAT 99
[2018-11-12 12:51] VITALS: BP 133/90
--- NOTE | 2018-11-12 12:59 | PCM.OPRPT ---
Problem List (1) Degeneration of lumbar or lumbosacral intervertebral disc Status: Chronic (2) Radiculopathy of lumbosacral region Status: Chronic Report of Operation Date of Procedure: 11/12/18 Description of Surgical Findings:: PROCEDURE: Diagnostic/therapeutic caudal epidural steroid injection PREOPERATIVE DIAGNOSIS: Lumbosacral radiculopathy, lumbosacral degenerative disc disease, lumbosacral spinal stenosis POSTOPERATIVE DIAGNOSIS: Lumbosacral radiculopathy, lumbosacral degenerative disc disease, lumbosacral spinal stenosis ANESTHESIA: MAC COMPLICATIONS: None BLOOD LOSS: Minimal PROCEDURE IN DETAIL: History and physical today was reviewed. Risks and benefits of the procedure were explained. The patient understood, agreed to our procedure, and informed consent was obtained. IV inserted per routine protocol. The patient was taken to the operating room, placed in a prone position with a pillow positioned underneath the abdomen. The lower back and tailbone area was prepped and draped in a sterile fashion using iodine x3 under fluoroscopy guidance on the lateral view the caudal space was identified the skin and subcutaneous tissue and size approximately 3 cc of 1% lidocaine using a 25-gauge regular needle under direct visualization fluoroscopy using a 22-gauge 3-1/2 inch spinal needle the needle was advanced via the skin through the sacral hiatus tip of the needle passed through the sacrococcygeal ligament advanced approximately S4 area after negative aspiration for blood or CSF a total of 3 cc of contrast were injected to confirm correct placement of the needle as well as cephalad spread the spread was followed to approximately L5 area after negative aspiration for blood or CSF and confirmation AP as well as lateral view a total of 15 cc of preservative-free 0.125% Marcaine with 80 mg of Depo-Medrol were injected easily. The needles were then removed intact. The patient experienced no signs or symptoms intrathecal, intravascular injection. The patient experienced no paraesthesia. The procedure was completed without any apparent difficult, any complication. The patient appeared to tolerate well. ASSESSMENT AND PLAN: This is a 78-year-old male with lumbosacral radiculopathy, lumbosacral degenerative disc disease, lumbosacral spinal stenosis status post diagnostic/therapeutic caudal epidural steroid injection. The patient will continue her current medications. The patient will follow in approximately 2 weeks for reevaluation.
== END 2018-11-12 12:52 | disposition home or self-care (01) ==
LOC: SDC 10:07 → AC 10:52
PROVIDERS: Family Provider Family Medicine; PCP Family Medicine; Referring Provider Anesthesiology Pain Medicine; Visit Provider Anesthesiology Pain Medicine
PROC: 3E0S3BZ Introduction of Anesthetic Agent into Epidural Space, Percutaneous Approach (ICD-10-PCS; CPT 62282; principal; 2018-11-12 11:25)
DX: M51.17 Intervertebral disc disorders with radiculopathy, lumbosacral region (principal); M48.07 Spinal stenosis, lumbosacral region; M47.27 Other spondylosis with radiculopathy, lumbosacral region; M19.90 Unspecified osteoarthritis, unspecified site; I25.10 Atherosclerotic heart disease of native coronary artery without angina pectoris; I48.91 Unspecified atrial fibrillation; E11.9 Type 2 diabetes mellitus without complications; K21.9 Gastro-esophageal reflux disease without esophagitis; E78.00 Pure hypercholesterolemia, unspecified; I11.0 Hypertensive heart disease with heart failure; I50.9 Heart failure, unspecified; G47.30 Sleep apnea, unspecified; I63.9 Cerebral infarction, unspecified; I69.398 Other sequelae of cerebral infarction; I25.2 Old myocardial infarction; Z79.82 Long term (current) use of aspirin; Z79.84 Long term (current) use of oral hypoglycemic drugs; Z79.02 Long term (current) use of antithrombotics/antiplatelets; Z79.891 Long term (current) use of opiate analgesic; Z79.899 Other long term (current) drug therapy
CPT/HCPCS: 62323; 64520; 64483; 77003; 82962; J7120; J3490

== ENCOUNTER 2018-12-17 08:14 | Day surgery (SDC) | payer MEDICARE, OTHER, SELFPAY ==
[2018-12-13 14:33] VITALS: BMI 28.0
[2018-12-17] VITALS (7 sets, daily range): BP systolic 116–125; BP diastolic 62–106; PULSE 58–61; RESP 15–16; TEMP 36.4–36.5; O2SAT 96–100; BMI 28.3
[2018-12-17 08:45] LABS: Bedside Glucose 131 mg/dL (70-110)
[2018-12-17] MEDS: Lactated Ringers 1,000 ML 100 ML IV (09:00)
--- NOTE | 2018-12-17 09:34 | RAD_ITS ---
PROCEDURE: Left L3-S1 facet joint injection. DATE OF EXAMINATION: December 17, 2018. INDICATION: Male, 78 years old. Chronic back pain. FLUOROSCOPY TIME (if supplied): (0:15) minutes/seconds. For coned down intraoperative views were submitted. Intraoperative imaging provided for left L3-S1 facet joint block. RAD/L/S Spine Min 4 Views IMPRESSION: Intraoperative imaging provided for left L3-S1 facet joint block. Electronically Signed: Elpidio Nunez, at 15:07 EDT , Service support ,
[2018-12-17] MEDS: MethylPREDNISolone Acetate 80 MG/ML Vial (09:36)
[2018-12-17] MEDS: Bupivacaine 0.25% 30 ML Vial (09:36)
--- NOTE | 2018-12-17 11:37 | OP.PCM_ITS ---
Report of Operation Date of Procedure: 12/17/18 Description of Surgical Findings:: PROCEDURE: Left-sided lumbar facet steroid injection L3, L4, L5, S1 PREOPERATIVE DIAGNOSIS: Lumbosacral spondylosis, lumbosacral degenerative disc disease and lumbar facet arthropathy POSTOPERATIVE DIAGNOSIS: Lumbosacral spondylosis, lumbosacral degenerative disc disease, and lumbar facet arthropathy ANESTHESIA: MAC COMPLICATIONS: None BLOOD LOSS: Minimal PROCEDURE IN DETAIL: History and physical today was reviewed. Risks and benefits of the procedure were explained. The patient understood, agreed to our procedure, and informed consent was obtained. IV inserted per routine protocol. The patient was taken to the operating room, placed in a prone position with a pillow positioned underneath the abdomen. The left side of his lower back was prepped and draped in a sterile fashion using iodine x3. Under fluoroscopy guidance, on AP view, L3 through S1 vertebral bodies were visualized. Skin and subcutaneous tissues were anesthetized with approximately 5 mL of 1% lidocaine using a 25-gauge regular needle. Under direct visualization with fluoroscopy at approximately 25-degree angle, starting on the left L3, ending on the left S1, passing through the L4-L5 using a 22-gauge 3 1/2-inch spinal needle, the needle was advanced via the skin. The tip of the needle was maneuvered and directed towards the superior and medial gutter of the transverse process at the vicinity of the medial branch. Once the tip of the needle was in contact with the bone, the needle pulled approximately 2 mm off the bone. After negative aspiration of blood with CSF and confirmation of AP as well as oblique view, a total of 8 mL of preservative-free 0.25% Marcaine with 80 mg of Depo- Medrol was injection in divided doses between those 4 levels. The needles were then removed intact. The patient experienced no signs or symptoms intrathecal, intravascular injection. The patient experienced no paraesthesia. The procedure was completed without any apparent difficult, any complication. The patient appeared to tolerate well. ASSESSMENT AND PLAN: This is a 78-year-old Male with lumbosacral spondylosis, lumbosacral degenerative disc disease, and lumbar facet arthropathy, status post left-sided lumbar facet steroid injection L3 through S1. The patient will continue his current medications. The patient will follow in approximately 2 weeks for possible repeat of the procedure if indicated.
== END 2018-12-17 10:32 | disposition home or self-care (01) ==
LOC: SDC 08:15 → AC 08:17
PROVIDERS: Family Provider Family Medicine; PCP Family Medicine; Referring Provider Anesthesiology Pain Medicine; Visit Provider Anesthesiology Pain Medicine
PROC: 3E0T3BZ Introduction of Anesthetic Agent into Peripheral Nerves and Plexi, Percutaneous Approach (ICD-10-PCS; CPT 64493; principal; 2018-12-17 09:25)
DX: M47.27 Other spondylosis with radiculopathy, lumbosacral region (principal); M51.17 Intervertebral disc disorders with radiculopathy, lumbosacral region; M51.16 Intervertebral disc disorders with radiculopathy, lumbar region; M48.07 Spinal stenosis, lumbosacral region; I25.10 Atherosclerotic heart disease of native coronary artery without angina pectoris; Z86.73 Personal history of transient ischemic attack (TIA), and cerebral infarction without residual deficits; I48.91 Unspecified atrial fibrillation; E11.9 Type 2 diabetes mellitus without complications; F32.9 Major depressive disorder, single episode, unspecified; I73.9 Peripheral vascular disease, unspecified; I25.2 Old myocardial infarction; K21.9 Gastro-esophageal reflux disease without esophagitis; E78.00 Pure hypercholesterolemia, unspecified; N40.0 Benign prostatic hyperplasia without lower urinary tract symptoms; F41.9 Anxiety disorder, unspecified; G47.30 Sleep apnea, unspecified; R56.9 Unspecified convulsions; Z95.0 Presence of cardiac pacemaker; Z95.5 Presence of coronary angioplasty implant and graft; Z79.82 Long term (current) use of aspirin; Z79.84 Long term (current) use of oral hypoglycemic drugs; Z79.02 Long term (current) use of antithrombotics/antiplatelets; Z79.891 Long term (current) use of opiate analgesic; Z79.899 Other long term (current) drug therapy
CPT/HCPCS: 64493; 64494; 64483; 72110; 82962; J7120

== ENCOUNTER 2019-01-14 09:13 | Day surgery (SDC) | payer MEDICARE, OTHER, SELFPAY ==
[2018-12-17 08:50] VITALS: BMI 28.3
[2019-01-14] VITALS (7 sets, daily range): BP systolic 102–118; BP diastolic 66–85; PULSE 60–61; RESP 15–16; TEMP 36.2–36.4; O2SAT 94–100; BMI 27.8
[2019-01-14 09:36] LABS: Bedside Glucose 140 mg/dL (70-110)
[2019-01-14] MEDS: Lactated Ringers 1,000 ML 100 ML IV (09:53)
[2019-01-14] MEDS: Bupivacaine 0.25% 30 ML Vial (10:39)
[2019-01-14] MEDS: 0.9% Normal Saline (Pres. free 10 ML Vial (10:39)
[2019-01-14] MEDS: MethylPREDNISolone Acetate 80 MG/ML Vial (10:39)
--- NOTE | 2019-01-14 10:40 | RAD_ITS ---
STUDY: CAUDAL BLOCK. REASON FOR EXAM: Male, 78 years old. Low back pain. FLUOROSCOPY TIME (if supplied): ( 8.7 seconds ) minutes/seconds. 2 images were obtained. TECHNIQUE: Fluoroscopic services provided for caudal block. COMPARISON: None. FINDINGS: The spinal needle is seen overlying the posterior midportion of the sacrum. RAD/Fluor Guidance for Spine Inj IMPRESSION: The spinal needle is seen overlying the posterior midportion of the sacrum. Electronically Signed: Elpidio Nunez, at 9:31 EST , Service support ,
--- NOTE | 2019-01-14 12:47 | OP.PCM_ITS ---
Report of Operation Date of Procedure: 01/14/19 Description of Surgical Findings:: PREOPERATIVE DIAGNOSIS: Lumbosacral radiculopathy, lumbosacral degenerative disc disease, lumbosacral spinal stenosis POSTOPERATIVE DIAGNOSIS: Lumbosacral radiculopathy, lumbosacral degenerative disc disease, lumbosacral spinal stenosis PROCEDURE PERFORMED: Caudal epidural steroid injection. ANESTHESIA: MAC. BLOOD LOSS: Minimal. COMPLICATIONS: None. DESCRIPTION OF PROCEDURE: History and physical of today was reviewed. Risks and benefits of the procedure were explained. The patient understood and agreed to proceed. Informed consent was obtained. IV inserted per routine protocol. The patient was taken to the operating room and placed in the prone position with a pillow positioned underneath the abdomen. The lower back and tailbone area was prepped and draped in a sterile fashion using iodine x3. Under flu oroscopy guidance on a lateral view, the caudal space was identified. The skin and subcutaneous tissue was anesthetized with approximately 3 mL of 1% lidocaine using a 25-gauge regular needle. Under direct visualization with fluoroscopy, using a 22-gauge 3-1/2-inch spinal needle, the needle was advanced via the skin through the sacral hiatus. The tip of the needle was passed through the sacroco ccygeal ligament and advanced to approximately S4 area. After negative aspiration of blood or CSF, a total of 3 mL of contrast was injected to confirm correct placement of the needle as well as cephalad spread. The spread was followed to approximately L5 area. After confirmation on AP as well as lateral view and repeated negative aspiration, a total of 15 mL of preservative-free 0.125% Marcaine with 80 mg of Depo-Medrol was injected easily. The needle was then removed intact. The patient experienced no sign or symptoms of intrathecal or intravascular injection. The patient experienced no paresthesia. The procedure was completed without any apparent difficulty or any complications. The patient appeared to tolerate it well. ASSESSMENT AND PLAN: This is a 78-year-old male with lumbosacral radiculopathy, lumbosacral degenerative disc disease, lumbosacral spinal stenosis status post caudal epidural steroid injection.patient will continue his current medications patient will follow in approximately 2 weeks for reevaluation.
== END 2019-01-14 11:38 | disposition home or self-care (01) ==
LOC: SDC 09:13 → AC 09:16
PROVIDERS: Family Provider Family Medicine; PCP Family Medicine; Referring Provider Anesthesiology Pain Medicine; Visit Provider Anesthesiology Pain Medicine
PROC: 3E0S3BZ Introduction of Anesthetic Agent into Epidural Space, Percutaneous Approach (ICD-10-PCS; CPT 62282; principal; 2019-01-14 10:25)
DX: M51.17 Intervertebral disc disorders with radiculopathy, lumbosacral region (principal); M48.07 Spinal stenosis, lumbosacral region; M47.27 Other spondylosis with radiculopathy, lumbosacral region; I25.10 Atherosclerotic heart disease of native coronary artery without angina pectoris; Z86.73 Personal history of transient ischemic attack (TIA), and cerebral infarction without residual deficits; I48.91 Unspecified atrial fibrillation; E11.9 Type 2 diabetes mellitus without complications; F32.9 Major depressive disorder, single episode, unspecified; I73.9 Peripheral vascular disease, unspecified; I25.2 Old myocardial infarction; I11.0 Hypertensive heart disease with heart failure; I50.9 Heart failure, unspecified; G47.30 Sleep apnea, unspecified; R56.9 Unspecified convulsions; E78.00 Pure hypercholesterolemia, unspecified; Z95.0 Presence of cardiac pacemaker; Z95.5 Presence of coronary angioplasty implant and graft; Z79.82 Long term (current) use of aspirin; Z79.84 Long term (current) use of oral hypoglycemic drugs; Z79.02 Long term (current) use of antithrombotics/antiplatelets; Z79.891 Long term (current) use of opiate analgesic; Z79.899 Other long term (current) drug therapy
CPT/HCPCS: 62323; 64520; 64483; 77003; 82962; J7120; J3490

== ENCOUNTER 2019-03-22 10:23 | Day surgery (SDC) | payer MEDICARE, OTHER, SELFPAY ==
[2019-03-11 15:02] VITALS: BMI 28.1
[2019-03-22] VITALS (8 sets, daily range): BP systolic 114–133; BP diastolic 71–91; PULSE 56–71; RESP 16; TEMP 36.3–36.7; O2SAT 94–99; BMI 28.0
[2019-03-22] MEDS: Lactated Ringers 1,000 ML 100 ML IV (11:05)
[2019-03-22 11:10] LABS: Bedside Glucose 160 mg/dL (70-110)
--- NOTE | 2019-03-22 12:00 | FOR_PTH ---
PATIENT: BERT BRAVO LOC: [facility] U#:[id number] AGE/SX: 79/M ROOM: RE03/22/[address]: Dr. Ap Lambert MD : 1940 BED: DIS: 03/22/2019 SPEC #: [id number] RECD: 03/22/19 16:07 STATUS: MARY ILYA #: [id number] ROSEMARY: 03/22/19 12:[address]: Ap Lambert DEPT: SURGICAL PATHOLOGY RECD BY: Marie James ENTERED: 03/25/19 11:51 SP TYPE: FORESKIN OTHR DR: Dr. Gaston Yip MD Tissues: Skin of foreskin, NOS Procedures: Surgery Specimen Level III HEADER OPERATION: Circumcision PRE-OP DIAGNOSIS: Phimosis TISSUE SUBMITTED: Foreskin MICROSCOPIC DIAGNOSIS Foreskin: Pieces of skin with moderate chronic inflammation. SJ:amos 03/26/19 MICROSCOPIC DESCRIPTION Slides are reviewed. GROSS DESCRIPTION Received in fixative is one container labeled with the patient's name and designated foreskin. The specimen consists of two pieces of dickerson-brown wrinkled skin measuring 5 x 5 x 2 cm. A focal area of ulceration is noted. [employer] sections are submitted in two cassettes. / SJ:rg 03/25/19 TC:3 CPT: 38909
--- NOTE | 2019-03-22 12:13 | PCM.DC.URO ---
Discharge Diet: Light diet - advance as tolerated Discharge Activity: Return to Normal Activity Call your doctor if your incision/area has: Continuous Slow Oozing, Sudden Increased Bleeding, Increased Pain/ Swelling, Increased Redness, Foul Smelling Discharge, Swelling at the incision site Call your doctor if you observe: Uncontrolled pain Suture Line Care: Avoid Pulling/Pushing, Avoid Pinching/Bending Allergies/Adverse Reactions: Allergies citalopram [From Celexa] Adverse Reaction (Intermediate, Verified 03/22/19 10:49) Unknown isosorbide [From Imdur] Adverse Reaction (Verified 03/22/19 10:49) Low blood pressure lisinopril Adverse Reaction (Verified 03/22/19 10:49) Low blood pressure Medications to take at Discharge aspirin 81 mg tablet,delayed release 81 mg PO QHS tab 05/16/17 nitroglycerin 0.4 mg sublingual tablet 0.4 mg SUBLINGUAL Q5M PRN 05/16/17 multivitamin 1 tab PO QDAY 09/12/17 vitamin E (dl, acetate) 400 unit capsule 400 unit PO QDAY 09/12/17 Metoprolol Tartrate 25 mg PO BID 01/18/18 Polyethylene Glycol 3350 [Miralax] 17 gm PO DAILY 01/18/18 Acetaminophen [Tylenol Extra Strength] 1,000 mg PO Q6H PRN PRN 01/22/18 Atorvastatin Calcium [Lipitor] 40 mg PO QHS tab 02/01/18 Hydrocortisone 2.5% Crm [Hytone] 1 applic TOPICAL TID PRN PRN tube 02/01/18 Ketoconazole 10 ml TP Q48H PRN shampoo 02/01/18 Mirtazapine [Remeron] 15 mg PO QHS #30 tab 02/01/18 Pantoprazole Sodium [Protonix] 40 mg PO DAILY #30 tab 02/05/18 tramadol 50 mg tablet 100 mg PO Q4H PRN tab 03/19/18 ranolazine 500 mg tablet,extended release,12 hr 500 mg PO BID #180 tab 05/03/18 rivaroxaban 20 mg tablet 20 mg PO DAILY #90 tab 07/16/18 Glucos Sul 2Kcl/MSM/Chond/C/Mn [Glucosamine Chondroitin Cap] 2 ea PO DAILY 11/07/18 furosemide 20 mg tablet 20 mg PO DAILY PRN 12/13/18 lamotrigine 100 mg tablet 150 mg PO BID tab 12/13/18 metformin 500 mg tablet 500 mg PO DAILY 12/13/18 Ciprofloxacin [Cipro] 500 mg PO BID #6 tab 03/22/19 Ciprofloxacin [Cipro] 500 mg PO BID #6 tab 03/22/19 Hydrocodone/Acetaminophen [[place] 5-325 Tablet] 1 ea PO Q4H PRN PRN 5 Days #10 tab 03/22/19 Hydrocodone/Acetaminophen [[place] 5-325 Tablet] 1 ea PO Q4H PRN PRN 5 Days #10 tab 03/22/19 The following prescriptions were given: Ciprofloxacin [Cipro] 500 mg PO BID #6 tab Transmission Status: Pending to [facility] Ciprofloxacin [Cipro] 500 mg PO BID #6 tab Prescription Printed Hydrocodone/Acetaminophen [[place] 5-325 Tablet] 1 ea PO Q4H PRN PRN 5 Days #10 tab PRN Reason: Pain Score 1-10/10 Transmission Status: Pending to [facility] Hydrocodone/Acetaminophen [[place] 5-325 Tablet] 1 ea PO Q4H PRN PRN 5 Days #10 tab PRN Reason: Pain Score 1-10/10 Prescription Printed Primary Care Physician: Gaston Yip [Primary Care Provider] - Test Results: Test results from this visit will be discussed in further detail at your follow-up appointment, if applicable. Please Follow Up With: Ap Lambert MD When: in 2 weeks, please call to make an appointment.
[2019-03-22] MEDS: Cefazolin 2 GM in 0.9% Normal Saline 100 ML IV (12:17)
[2019-03-22] MEDS: Bupivacaine Mpf 0.5% 30 ML VIAL (12:50)
--- NOTE | 2019-03-22 12:56 | PCM.OPRPT ---
Report of Operation Date of Procedure: 03/22/19 Pre-Operative Diagnosis: Severe phimosis Post-Operative Diagnosis: The same scarred down penis Surgery/Procedure Performed:: Reoperative circumcision. Description of Surgical Findings:: Is an 79-year-old male with severe phimosis of the foreskin is unable to retract the foreskin having difficulty urination a lot of chronic infections in the foreskin he underwent a circumcision that was kind of limited about a year ago but the scarring down so at this point we can do another circumcision to excise all the foreskin. He was taken back to the operating room after smooth induction of general anesthesia he was placed supine on the table, penis and testicles were prepped and draped in usual sterile,, he is also shaved, Betadine penile block using Marcaine circumferentially around the penis. I then marked out my subcoronal incision all the way around the penis. Used the needlepoint Bovie to and make the incision all the way sub-coronally. I then split the foreskin in half he had a very severe phimotic foreskin chronic inflammation chronic scarring also the foreskin was very adherent to the glans circumferentially excised the foreskin off the glans but most of the foreskin was stuck to the glans so it appeared to be cosmetically unusual. I then had the free shaft for skin and obtain hemostasis significant electrocautery of all the minor bleeding around the excision site of the foreskin and then re-in anastomosed from the shaft skin to the subcoronal skin but it was actually higher up on the coronal body since the foreskin had been adherent chronically adherent to the glans penis at the end of the circumcision the meatus was present was wide open no strictures circumcision was all the way around reattach the shaft skin to the glans and fluffs and dressings were placed patient anesthetic was reversed taken at the PACU in good condition. Type of Anesthesia:: General Drains: none - Admit VTE Documentation VTE Present on Admission: No VTE Mechan Device Prophylaxis: SCD's
[2019-03-22 14:16] LABS: Bedside Glucose 160 mg/dL (70-110)
[2019-03-22] MEDS: HYDROcodone Bitartrate/Apap 5/325 Tablet PO ×2 (14:41→15:17)
== END 2019-03-22 16:09 | disposition home or self-care (01) ==
LOC: SDC 10:27 → AC 10:33
PROVIDERS: Family Provider Family Medicine; PCP Family Medicine; Referring Provider Urology; Visit Provider Urology
PROC: (CPT 54161; principal; 2019-03-22 11:50)
DX: N47.1 Phimosis (principal); N40.1 Benign prostatic hyperplasia with lower urinary tract symptoms; N39.498 Other specified urinary incontinence; R35.1 Nocturia; I25.10 Atherosclerotic heart disease of native coronary artery without angina pectoris; E78.5 Hyperlipidemia, unspecified; E11.9 Type 2 diabetes mellitus without complications; K21.9 Gastro-esophageal reflux disease without esophagitis; F41.9 Anxiety disorder, unspecified; F03.90 Unspecified dementia, unspecified severity, without behavioral disturbance, psychotic disturbance, mood disturbance, and anxiety; F32.9 Major depressive disorder, single episode, unspecified; I48.91 Unspecified atrial fibrillation; I11.0 Hypertensive heart disease with heart failure; I50.9 Heart failure, unspecified; G47.30 Sleep apnea, unspecified; R56.9 Unspecified convulsions; Z95.0 Presence of cardiac pacemaker; Z79.84 Long term (current) use of oral hypoglycemic drugs; Z79.82 Long term (current) use of aspirin; Z79.02 Long term (current) use of antithrombotics/antiplatelets; Z79.891 Long term (current) use of opiate analgesic; Z79.899 Other long term (current) drug therapy; Z86.73 Personal history of transient ischemic attack (TIA), and cerebral infarction without residual deficits
CPT/HCPCS: 00920; 54161; 82962; 88304; J7120; J2405

== ENCOUNTER 2019-04-15 08:11 | Day surgery (SDC) | payer MEDICARE, OTHER, SELFPAY ==
[2019-03-11 15:02] VITALS: BMI 28.1
[2019-03-22 10:52] VITALS: BMI 28.0
[2019-04-15] VITALS (7 sets, daily range): BP systolic 98–109; BP diastolic 69–83; PULSE 58–60; RESP 16–17; TEMP 36.3–36.4; O2SAT 96–99; BMI 28.0
[2019-04-15] MEDS: Lactated Ringers 1,000 ML 100 ML IV (08:44)
[2019-04-15 08:51] LABS: Bedside Glucose 159 mg/dL (70-110)
--- NOTE | 2019-04-15 08:51 | RAD_ITS ---
PROCEDURE: Caudal block. DATE OF EXAMINATION: April 15, 2019. INDICATION: Male, 79 years old. Chronic low back pain. FLUOROSCOPY TIME (if supplied): (12.6 seconds) minutes/seconds Intraoperative fluoroscopic services provided for caudal block. RAD/Fluor Guidance for Spine Inj IMPRESSION: Intraoperative fluoroscopic services provided for caudal block. Electronically Signed: Elpidio Nunez, at 15:44 EST , Service support ,
[2019-04-15] MEDS: Bupivacaine 0.25% 30 ML Vial (09:01)
[2019-04-15] MEDS: 0.9% Normal Saline (Pres. free 10 ML Vial (09:02)
[2019-04-15] MEDS: MethylPREDNISolone Acetate 80 MG/ML Vial (09:02)
--- NOTE | 2019-04-15 12:02 | PCM.OPRPT ---
Report of Operation Date of Procedure: 04/15/19 Description of Surgical Findings:: PREOPERATIVE DIAGNOSIS: Lumbosacral radiculopathy, lumbosacral degenerative disc disease, lumbosacral spinal stenosis POSTOPERATIVE DIAGNOSIS: Lumbosacral radiculopathy, lumbosacral degenerative disc disease, lumbosacral spinal stenosis PROCEDURE PERFORMED: Caudal epidural steroid injection. ANESTHESIA: MAC. BLOOD LOSS: Minimal. COMPLICATIONS: None. DESCRIPTION OF PROCEDURE: History and physical of today was reviewed. Risks and benefits of the procedure were explained. The patient understood and agreed to proceed. Informed consent was obtained. IV inserted per routine protocol. The patient was taken to the operating room and placed in the prone position with a pillow positioned underneath the abdomen. The lower back and tailbone area was prepped and draped in a sterile fashion using iodine x3. Under fluoroscopy guidance on a lateral view, the caudal space was identified. The skin and subcutaneous tissue was anesthetized with approximately 3 mL of 1% lidocaine using a 25-gauge regular needle. Under direct visualization with fluoroscopy, using a 22-gauge 3-1/2-inch spinal needle, the needle was advanced via the skin through the sacral hiatus. The tip of the needle was passed through the sacrococcygeal ligament and advanced to approximately S4 area. After negative aspiration of blood or CSF, a total of 3 mL of contrast was injected to confirm correct placement of the needle as well as cephalad spread. The spread was followed to approximately L5 area. After confirmation on AP as well as lateral view and repeated negative aspiration, a total of 15 mL of preservative-free 0.125% Marcaine with 80 mg of Depo-Medrol was injected easily. The needle was then removed intact. The patient experienced no sign or symptoms of intrathecal or intravascular injection. The patient experienced no paresthesia. The procedure was completed without any apparent difficulty or any complications. The patient appeared to tolerate it well. ASSESSMENT AND PLAN: This is a 79-year-old male with lumbosacral radiculopathy, lumbosacral degenerative disc disease, lumbosacral spinal stenosis status post caudal epidural steroid injection.patient will continue his current medications patient will follow in approximately 2 weeks for reevaluation.
== END 2019-04-15 09:58 | disposition home or self-care (01) ==
LOC: SDC 08:12 → AC 08:14
PROVIDERS: Family Provider Family Medicine; PCP Family Medicine; Referring Provider Anesthesiology Pain Medicine; Visit Provider Anesthesiology Pain Medicine
PROC: 3E0S3BZ Introduction of Anesthetic Agent into Epidural Space, Percutaneous Approach (ICD-10-PCS; CPT 62282; principal; 2019-04-15 09:15)
DX: M51.17 Intervertebral disc disorders with radiculopathy, lumbosacral region (principal); M48.07 Spinal stenosis, lumbosacral region; M47.27 Other spondylosis with radiculopathy, lumbosacral region; I25.10 Atherosclerotic heart disease of native coronary artery without angina pectoris; I48.91 Unspecified atrial fibrillation; E11.9 Type 2 diabetes mellitus without complications; I73.9 Peripheral vascular disease, unspecified; I25.2 Old myocardial infarction; I11.0 Hypertensive heart disease with heart failure; I50.9 Heart failure, unspecified; G47.30 Sleep apnea, unspecified; R56.9 Unspecified convulsions; K21.9 Gastro-esophageal reflux disease without esophagitis; E78.00 Pure hypercholesterolemia, unspecified; Z86.73 Personal history of transient ischemic attack (TIA), and cerebral infarction without residual deficits; Z95.0 Presence of cardiac pacemaker; Z95.5 Presence of coronary angioplasty implant and graft; Z79.82 Long term (current) use of aspirin; Z79.02 Long term (current) use of antithrombotics/antiplatelets; Z79.84 Long term (current) use of oral hypoglycemic drugs; Z79.891 Long term (current) use of opiate analgesic; Z79.899 Other long term (current) drug therapy
CPT/HCPCS: 62323; 64520; 64483; 77003; 82962; J7120; J3490

== ENCOUNTER 2019-10-14 09:24 | Day surgery (SDC) | payer MEDICARE, OTHER, SELFPAY ==
[2019-09-18 15:46] VITALS: BMI 28.1
[2019-10-14 10:12] VITALS: BP 122/79; PULSE 59; RESP 16; TEMP 37.1; O2SAT 98; BMI 29.4
[2019-10-14] MEDS: Lactated Ringers 1,000 ML 100 ML IV (10:36)
[2019-10-14 10:41] LABS: Bedside Glucose 138 mg/dL (70-110)
--- NOTE | 2019-10-14 10:45 | RAD_ITS ---
PROCEDURE: Caudal block DATE OF EXAMINATION: 10/14/2019 INDICATION: Male, 79 years old. Pelvic pain PHYSICIAN: Dr. Neely FLUOROSCOPY TIME (if supplied): (8) seconds RADIATION DOSAGE (If Supplied By Facility): CTDIvol = ( ) mGy, DLP = ( ) mGycm CONSENT: The risks, benefits and alternatives to the procedure were explained to the patient, and the patient agreed to the procedure and signed the consent. 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 PROCEDURE/TECHNIQUE: (All elements of maximal sterile barrier technique followed, including US elements as applicable) The risks, benefits, and alternatives to the procedure were explained to patient, and the patient agreed to the procedure and signed a consent form for the procedure. A timeout was performed to confirm the patient''s identity, the type of procedure, to be performed and the site of entry. 3 intraoperative C-arm films were performed as the patient has undergone injection of contrast into the central canal and visualized posterior to the lumbar spine and sacrum. RAD/Fluor Guidance for Spine Inj IMPRESSION: Caudal block Electronically Signed: Mason Irving MD at 13:30 EDT , Service support ,
[2019-10-14] MEDS: MethylPREDNISolone Acetate 80 MG/ML Vial (11:00)
[2019-10-14] MEDS: Bupivacaine 0.25% 30 ML Vial (11:00)
[2019-10-14] MEDS: 0.9% Normal Saline (Pres. free 10 ML Vial (11:00)
--- NOTE | 2019-10-14 11:04 | PCM.OPRPT ---
Report of Operation Date of Procedure: 10/14/19 Description of Surgical Findings:: PREOPERATIVE DIAGNOSIS: Lumbosacral radiculopathy, lumbosacral degenerative disc disease, lumbosacral spinal stenosis POSTOPERATIVE DIAGNOSIS: Lumbosacral radiculopathy, lumbosacral degenerative disc disease, lumbosacral spinal stenosis PROCEDURE PERFORMED: Caudal epidural steroid injection. ANESTHESIA: MAC. BLOOD LOSS: Minimal. COMPLICATIONS: None. DESCRIPTION OF PROCEDURE: History and physical of today was reviewed. Risks and benefits of the procedure were explained. The patient understood and agreed to proceed. Informed consent was obtained. IV inserted per routine protocol. The patient was taken to the operating room and placed in the prone position with a pillow positioned underneath the abdomen. The lower back and tailbone area was prepped and draped in a sterile fashion using iodine x3. Under fluoroscopy guidance on a lateral view, the caudal space was identified. The skin and subcutaneous tissue was anesthetized with approximately 3 mL of 1% lidocaine using a 25-gauge regular needle. Under direct visualization with fluoroscopy, using a 22-gauge 3-1/2-inch spinal needle, the needle was advanced via the skin through the sacral hiatus. The tip of the needle was passed through the sacrococcygeal ligament and advanced to approximately S4 area. After negative aspiration of blood or CSF, a total of 3 mL of contrast was injected to confirm correct placement of the needle as well as cephalad spread. The spread was followed to approximately L5 area. After confirmation on AP as well as lateral view and repeated negative aspiration, a total of 15 mL of preservative-free 0.125% Marcaine with 80 mg of Depo-Medrol was injected easily. The needle was then removed intact. The patient experienced no sign or symptoms of intrathecal or intravascular injection. The patient experienced no paresthesia. The procedure was completed without any apparent difficulty or any complications. The patient appeared to tolerate it well. ASSESSMENT AND PLAN: This is a 79-year-old male with lumbosacral radiculopathy, lumbosacral degenerative disc disease, lumbosacral spinal stenosis status post caudal epidural steroid injection.patient will continue his current medications patient will follow in approximately 2 weeks for reevaluation.
[2019-10-14 11:05] VITALS: BP 122/79; BP 94/76; PULSE 60; RESP 16; TEMP 36.7; O2SAT 100
[2019-10-14 11:10] VITALS: BP 122/79; BP 90/68; PULSE 60; RESP 16; O2SAT 99
[2019-10-14 11:15] VITALS: BP 122/79; BP 96/70; PULSE 60; RESP 16; O2SAT 99
[2019-10-14 11:20] VITALS: BP 103/84; BP 122/79; PULSE 61; RESP 16; TEMP 36.4; O2SAT 100
[2019-10-14 11:59] VITALS: BP 122/79
== END 2019-10-14 12:00 | disposition home or self-care (01) ==
LOC: SDC 09:24 → AC 09:26
PROVIDERS: PCP Family Medicine; Referring Provider Anesthesiology Pain Medicine; Visit Provider Anesthesiology Pain Medicine
PROC: 3E0S3BZ Introduction of Anesthetic Agent into Epidural Space, Percutaneous Approach (ICD-10-PCS; CPT 62282; principal; 2019-10-14 11:15)
DX: M51.17 Intervertebral disc disorders with radiculopathy, lumbosacral region (principal); M48.07 Spinal stenosis, lumbosacral region; M47.27 Other spondylosis with radiculopathy, lumbosacral region; I25.10 Atherosclerotic heart disease of native coronary artery without angina pectoris; I48.91 Unspecified atrial fibrillation; E11.51 Type 2 diabetes mellitus with diabetic peripheral angiopathy without gangrene; F32.9 Major depressive disorder, single episode, unspecified; I25.2 Old myocardial infarction; G47.30 Sleep apnea, unspecified; R56.9 Unspecified convulsions; K21.9 Gastro-esophageal reflux disease without esophagitis; E78.00 Pure hypercholesterolemia, unspecified; N40.0 Benign prostatic hyperplasia without lower urinary tract symptoms; I11.0 Hypertensive heart disease with heart failure; I50.9 Heart failure, unspecified; F41.9 Anxiety disorder, unspecified; Z86.73 Personal history of transient ischemic attack (TIA), and cerebral infarction without residual deficits; Z95.0 Presence of cardiac pacemaker; Z79.02 Long term (current) use of antithrombotics/antiplatelets; Z79.82 Long term (current) use of aspirin; Z79.84 Long term (current) use of oral hypoglycemic drugs; Z79.891 Long term (current) use of opiate analgesic; Z79.899 Other long term (current) drug therapy
CPT/HCPCS: 62323; 64520; 64483; 77003; 82962; J7120; J3490

== ENCOUNTER 2020-01-06 14:11 | Emergency (ER) | payer MEDICARE, OTHER, SELFPAY ==
[2020-01-06 14:12] VITALS: BP 111/76; PULSE 61; RESP 18; TEMP 36.4; O2SAT 94; BMI 28.8
[2020-01-06 14:38] VITALS: RESP 16; O2SAT 97
--- NOTE | 2020-01-06 14:40 | EKGRS_ITS ---
Test Reason : WEAKNESS Blood Pressure : / mmHG Vent. Rate : 065 BPM Atrial Rate : 065 BPM P-R Int : 000 ms QRS Dur : 186 ms QT Int : 454 ms P-R-T Axes : 000 270 044 degrees QTc Int : 472 ms Ventricular-paced rhythm Abnormal ECG Confirmed by ADRY BARNES, TRIXIE ([id number]), scientific publications editor TAYLA MORFIN ([id number]) on 01/08/2020 8:45:59 AM Referred By: CORBIN Confirmed By:TRIXIE RIDER MD
--- NOTE | 2020-01-06 14:45 | RAD_ITS ---
STUDY: X-RAY CHEST REASON FOR EXAM: Male, 79 years old. COVID positive, increased weakness TECHNIQUE: Single AP portable view of the chest. COMPARISON: Comparison is made with prior study dated 01/22/2013. FINDINGS: The lungs are clear and expanded. There is no demonstrated pleural abnormality. There is mild cardiac enlargement. 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 Normal mediastinum and nina. Normal visualized pulmonary arteries. There is atherosclerotic calcification of the aortic arch with tortuosity. There are diffuse degenerative changes of the visualized thoracic spine. Normal visualized ribs, clavicles, and shoulders. There is no demonstrated abnormality of the visualized soft tissue structures of the upper abdomen. RAD/Chest 1 View IMPRESSION: Cardiomegaly. The lungs are clear. Electronically Signed: Elpidio Nunez, at 14:57 EST , Service support ,
--- NOTE | 2020-01-06 15:04 | ED.VISSUMM ---
- ER Visit Summary Date of Service: 01/06/20 Chief Complaint: Generalized weakness, decreased p.o. intake History of Present Illness: The patient is a 79 M who presents with generalized weakness. The patient was diagnosed with coronavirus 1 week ago. Caregiver has noted that he has had decreased p.o. intake over the past couple of days. He has had mild diarrhea as well. She believes he is having some generalized weakness as well. He has been 88 to 92% on room air at home. He has no history of any lung issues. He has had no recent fevers. Physical Examination: Vital signs reviewed. HEENT exam unremarkable. Heart is regular rate and rhythm without murmurs. Lungs are clear to auscultation. Abdomen is soft and nontender. Extremities reveal no edema. Skin exam normal. Neurologic exam shows diffuse generalized weakness. He has no slurred speech or facial droop. Test Results: Hemoglobin 12.8, chemistry normal. Troponin 0.033, lactate 2.8. EKG is sinus rhythm with no ischemic changes. Chest x-ray is clear lungs with cardiomegaly Emergency Department Course and Treatment: The patient was hydrated with IV fluids. Daughter states that the patient is at his baseline. They have home care in the house 19/09. His troponin is within the normal range. His lactate was slightly elevated but he was hydrated with IV fluids. His kidney function is normal. Currently we are in the midst of a pandemic and space within this hospital and other health systems are limited due to the increase of cases. At this time I feel the patient can be treated as an outpatient. I instructed the daughter to bring him back if things get worse. If he develops vomiting or diarrhea and cannot keep any fluids down to bring him back to the hospital. At this point I do not see any reason to bring him into the hospital. Treatment Plan: [] Disposition: Discharge Impression: Weakness, dehydration, COVID-19 This note was generated with [facility] dictation software. It may contain incorrect words, spelling, and punctuation that were not noted in review of the chart prior to signing ED Disposition - Plan for ED Patient: Disposition: Home or Assisted Living Instructions: ED Weakness [facility] Prescriptions: Ondansetron [Zofran Odt] 4 mg PO Q8H PRN PRN #10 tab PRN Reason: Nausea Transmission Status: Pending to [facility] Referrals: Gaston Yip MD [Primary Care Provider] -
[2020-01-06 15:27] VITALS: BP 101/64; PULSE 66; RESP 18; O2SAT 96
[2020-01-06 15:29] LABS: Absolute Lymphocyte Count 1.07 X10^3/uL (0.83-4.51); Basophil# 0.01 X10^3/uL; Basophil% 0.2 % (0-1); Eosinophil# 0.07 X10^3/uL; Eosinophils% 1.5 % (0-5); Hematocrit 39.6 % (40-54); Hemoglobin 12.8 g/dL (13.0-16.5); Lymphocyte # 1.07 X10^3/ul (4.0); Lymphocyte % 23.2 % (19-41); Mean Corp Hgb Conc 32.3 g/dL (32-36); Mean Corpuscular Volume 95.9 fL (80-94); Mean Platelet Vol. 9.1 fl (6.2-12.0); Monocyte# 0.43 X10^3/uL; Monocyte% 9.3 % (0-10); NRBC Flagged by Analyzer 0 % (0-5); Neutrophil # 3.01 X10^3/uL (2.7-7.7); Neutrophil % 65.4 % (47-70); Platelet Count 136 K/mm3 (150-450); RBC Distribution Width CV 12.7 % (11.6-14.6); RBC Distribution Width SD 45.1 fl (35.1-43.9); Red Blood Count 4.13 M/mm3 (4.6-6.2); White Blood Count 4.6 K/mm3 (4.4-11.0)
[2020-01-06 15:49] LABS: Anion Gap 4 (5-15); BUN 16 mg/dL (7-18); BUN/Creat Ratio 13.8 RATIO (10-20); Chloride 104 mmol/L (98-107); Creatinine, Serum 1.16 mg/dL (0.70-1.30); EST Glomerular Filtration Rate 64 mL/min (>60); Est Glom Filt Rate - Afr Amer 78 mL/min (>60); Estimated Creatinine Clearance 58.07 ml/min; Glucose 163 mg/dL (74-106); Sodium Level 138 mmol/L (136-145)
[2020-01-06 16:05] LABS: Lactic Acid 2.8 mmol/L (0.4-1.9)
[2020-01-06 16:35] VITALS: BP 114/72; PULSE 81; RESP 20; O2SAT 96
--- NOTE | 2020-01-06 16:36 | ED.RN ---
THIS NURSE REVIEWED D/C INSTRUCTIONS WITH PT AND DAUGHTER. DAUGHTER VERBALIZED UNDERSTANDING OF INSTRUCTIONS. IV D/C. IV CATHETER INTACT. PT TOLERATED WELL. DAUGHTER ASSISTING PT IN GETTING DRESSED WITH STAFF ASSISTANCE
[2020-01-06 19:21] LABS: Reflex Lactate? Y
== END 2020-01-06 16:37 | disposition home or self-care (01) ==
PROVIDERS: Emergency Medicine; Emergency Provider Emergency Medicine; PCP Family Medicine
DX: U07.1 COVID-19 (principal); E86.0 Dehydration; R53.1 Weakness; E11.9 Type 2 diabetes mellitus without complications; Z86.73 Personal history of transient ischemic attack (TIA), and cerebral infarction without residual deficits
CPT/HCPCS: 36415; 71045; 80048; 83605; 84484; 85025; 87040; 93005; 94760; 96361; 99284; J7040; A4216

== ENCOUNTER 2020-01-08 19:43 | Inpatient (IN) | payer MEDICARE, OTHER, SELFPAY ==
[2020-01-08 19:27] VITALS: BP 113/71; PULSE 69; RESP 16; TEMP 37; O2SAT 96
[2020-01-08 19:38] VITALS: BMI 28.8
[2020-01-08 19:43] VITALS: BMI 28.9
--- NOTE | 2020-01-08 19:49 | HP.PCM_ITS ---
Problem List (1) COVID-19 Status: Acute (2) Encephalopathy, metabolic Status: Acute (3) Acute respiratory failure with hypoxia Status: Acute (4) ELDER on CPAP Status: Chronic (5) Degeneration of lumbar or lumbosacral intervertebral disc Status: Chronic (6) Radiculopathy of lumbosacral region Status: Chronic (7) Mixed hyperlipidemia Status: Chronic (8) Essential hypertension Status: Chronic (9) Type 2 diabetes mellitus Status: Chronic (10) Atherosclerotic heart disease of [place] coronary artery with unspecified angina pectoris Status: Chronic Qualifiers: (11) Chest pain Status: Chronic Qualifiers: (12) Debility Status: Acute (13) Herpes zoster Status: Acute (14) Stroke Status: Chronic (15) Alzheimer's disease Status: Chronic (16) Depression Status: Chronic (17) Atrial fibrillation Status: Chronic Qualifiers: (18) Atherosclerotic heart disease of [place] coronary artery without angina pectoris Status: Chronic Qualifiers: Comment: S/P RCA, LCX, and OM PTCA/SARKIS in April and May of 2014; PTCA/ballooning to OM1 at [facility] in December 2017; (19) Stroke determined by clinical assessment Status: Chronic (20) Presence of other cardiac implants and grafts Status: Chronic Comment: Staged PCI done 05/15/14 to RCA & then readmitted 05/26/14 for acute coronary syndrome-PCI completed 05/28/14 (21) Non-ST elevation (NSTEMI) myocardial infarction Status: Chronic (22) Diastolic dysfunction Status: Chronic (23) Other intermediate (current) drug therapy Status: Chronic (24) Ischemic cardiomyopathy Status: Chronic (25) Second degree atrioventricular block Status: Chronic (26) Presence of cardiac pacemaker Status: Chronic Comment: Pacemaker implant 05/15/14 (27) H/O: stroke Status: Chronic (28) H/O myocardial infarction, greater than 8 weeks Status: Chronic (29) Dementia Status: Chronic History of Present Illness Date of Admission: 01/08/20 Chief Complaint: shortness of breath. The patient is a 79 year old M who began feeling sick on 28 December. Was checked for COVID-19 on the second and was positive. Since then, he has become progressively more short of breath and more confused. History is obtained through the emergency room physician as well as the patient's daughter, Melinda. She states that he is normally confused at baseline but is able to get out and walk on his own, however, he has 24-hour assistance at home to help with IADLs. The patient presented to the outside emergency room and was noted to be hypoxic with acute respiratory failure with his sats dropping down to 85% on room air. Patient was titrated upwards on nasal cannula oxygen and his sats were stabilized in the mid 90s. Patient was requiring 4 L at the facility. He did receive 4 mg of IV Decadron at the outside emergency room. Family requested transfer to [facility] for further treatment of his COVID-19. [] Past Medical History Past Medical History (Chronic Problems): Chronic Problems (Last Reviewed 03/11/19 @ 15:05 by Tasha Leigh) ELDER on CPAP (Chronic) Degeneration of lumbar or lumbosacral intervertebral disc (Chronic) Radiculopathy of lumbosacral region (Chronic) Mixed hyperlipidemia (Chronic) Essential hypertension (Chronic) Type 2 diabetes mellitus (Chronic) Atherosclerotic heart disease of [place] coronary artery with unspecified angina pectoris (Chronic) Chest pain (Chronic) Stroke (Chronic) Alzheimer's disease (Chronic) Depression (Chronic) Atrial fibrillation (Chronic) Atherosclerotic heart disease of [place] coronary artery without angina pectoris (Chronic) S/P RCA, LCX, and OM PTCA/SARKIS in April and May of 2014; PTCA/ballooning to OM1 at [facility] in December 2017; Stroke determined by clinical assessment (Chronic) Presence of other cardiac implants and grafts (Chronic) Staged PCI done 05/15/14 to RCA & then readmitted 05/26/14 for acute coronary syndrome-PCI completed 05/28/14 Non-ST elevation (NSTEMI) myocardial infarction (Chronic) Diastolic dysfunction (Chronic) Other intermediate (current) drug therapy (Chronic) Ischemic cardiomyopathy (Chronic) Second degree atrioventricular block (Chronic) Presence of cardiac pacemaker (Chronic) Pacemaker implant 05/15/14 H/O: stroke (Chronic) H/O myocardial infarction, greater than 8 weeks (Chronic) Dementia (Chronic) Medical History: Medical History (Last Reviewed 01/08/20 @ 19:[address] Robel Kulkarni, DO) Mixed hyperlipidemia (Chronic) E78.2 Essential hypertension (Chronic) I10 Type 2 diabetes mellitus (Chronic) E11.9 Atherosclerotic heart disease of [place] coronary artery with unspecified angina pectoris (Chronic) I25.119 Chest pain (Chronic) R07.9 Debility (Acute) R53.81 Herpes zoster (Acute) B02.9 Stroke (Chronic) I63.9 Alzheimer's disease (Chronic) G30.9, F02.80 Depression (Chronic) F32.9 Atrial fibrillation (Chronic) I48.91 Atherosclerotic heart disease of [place] coronary artery without angina pectoris (Chronic) I25.10 S/P RCA, LCX, and OM PTCA/SARKIS in April and May of 2014; PTCA/ballooning to OM1 at [facility] in December 2017; Stroke determined by clinical assessment (Chronic) I63.9 Non-ST elevation (NSTEMI) myocardial infarction (Chronic) I21.4 Diastolic dysfunction (Chronic) I51.9 Other intermediate (current) drug therapy (Chronic) Z79.899 Ischemic cardiomyopathy (Chronic) I25.5 Second degree atrioventricular block (Chronic) I44.1 H/O: stroke (Chronic) Z86.73 H/O myocardial infarction, greater than 8 weeks (Chronic) I25.2 Dementia (Chronic) F03.90 Depression F32.9 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, 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 Pressure ulcer of left buttock, stage 1 (Resolved) L89.321 Pressure ulcer of right buttock, stage 1 (Resolved) L89.311 Coronary artery disease (Inactive) I25.10 Diabetes mellitus (Inactive) E11.9 Diabetes type 2, uncontrolled (Inactive) E11.65 Hyperlipidemia (Inactive) E78.5 Hypertension (Inactive) I10 Allergies citalopram [From Celexa] Adverse Reaction (Intermediate, Verified 10/14/19 09:59) Unknown isosorbide [From Imdur] Adverse Reaction (Verified 10/14/19 09:59) Low blood pressure lisinopril Adverse Reaction (Verified 10/14/19 09:59) Low blood pressure Home Medications: Ambulatory Orders Medication Instructions Recorded aspirin 81 mg tablet,delayed 81 mg PO QHS tab 05/16/17 release nitroglycerin 0.4 mg sublingual 0.4 mg SUBLINGUAL Q5M PRN 05/16/17 tablet multivitamin 1 tab PO QDAY 09/12/17 vitamin E (dl, acetate) 400 unit 400 unit PO QDAY 09/12/17 capsule Metoprolol Tartrate 25 mg PO BID 01/18/18 Polyethylene Glycol 3350 [Miralax] 17 gm PO DAILY 01/18/18 Acetaminophen [Tylenol Extra 1,000 mg PO Q6H PRN PRN 01/22/18 Strength] Atorvastatin Calcium [Lipitor] 40 mg PO QHS tab 02/01/18 Hydrocortisone 2.5% Crm [Hytone] 1 applic TOPICAL TID PRN PRN tube 02/01/18 Ketoconazole 10 ml TP Q48H PRN shampoo 02/01/18 Mirtazapine [Remeron] 15 mg PO QHS #30 tab 02/01/18 Pantoprazole Sodium [Protonix] 40 mg PO DAILY #30 tab 02/05/18 tramadol 50 mg tablet 100 mg PO Q4H PRN tab 03/19/18 ranolazine 500 mg tablet,extended 500 mg PO BID #180 tab 05/03/18 release,12 hr Glucos Sul 2Kcl/MSM/Chond/C/Mn 2 ea PO DAILY 11/07/18 [Glucosamine Chondroitin Cap] furosemide 20 mg tablet 20 mg PO DAILY PRN 12/13/18 lamotrigine 100 mg tablet 150 mg PO BID tab 12/13/18 metformin 500 mg tablet 500 mg PO DAILY 12/13/18 Ondansetron [Zofran Odt] 4 mg PO Q8H PRN PRN #10 tab 01/06/20 Surgical History: Surgical History (Last Reviewed 01/08/20 @ 19:[address] Robel Kulkarni DO) Presence of other cardiac implants and grafts (Chronic) Z95.818 Staged PCI done 05/15/14 to RCA & then readmitted 05/26/14 for acute coronary syndrome-PCI completed 05/28/14 Presence of cardiac pacemaker (Chronic) Z95.0 Pacemaker implant 05/15/14 Surgical History: coronary bypass surgery, pacemaker implantation Psychiatric History: Depression Smoking Status: Never smoker - *Family History Maternal Family History: Family History (Last Reviewed 01/08/20 @ 19:[address] Robel Kulkarni DO) Other Heart disease History Items: No pertinent history Paternal Family History: Family History (Last Reviewed 01/08/20 @ 19:[address] Robel Kulkarni DO) Other Heart disease History Items: No pertinent history Review of Systems Unable to obtain accurate/complete ROS d/t: Patient's confusion. Please see HPI. VTE Information - Inpt Only VTE Present on Admission: No VTE Mechan Device Prophylaxis: None VTE Pharm Prophylaxis ordered?: No Reason prophylaxis not ordered:: Treatment Not Indicated - Physical Exam Vitals/I&O's: Vital Signs Temp Pulse Resp BP Pulse Ox 37.0 C 69 16 113/71 96 01/08/20 19:27 01/08/20 19:27 01/08/20 19:27 01/08/20 19:27 01/08/20 19:27 Oxygen Flow Rate (L/min) 6 Oxygen Delivery Method Nasal Cannula Weight: 102.058 kg Body Mass Index (BMI) 28.8 Finger Stick Blood Glucose 160 General: Confused, - - Afebrile. No respiratory distress. No conversational dyspnea. HEENT: Atraumatic, Normocephalic Oral: Moist Mucosa, No Gingival or Mucosal Lesions/ Ulcerations Neck: No Nodes, Trachea Midline Lungs: Diminished, - - Coarse breath sounds bilaterally. Cardiovascular: Regular rate, Regular Rhythm, Normal S1, Normal S2, No murmurs Abdomen: Bowel Sounds Present, Soft, Non Tender, Non-Distended, No Hepato- splenomegaly Extremities: No edema, No Calf Tenderness Skin: No rashes, No breakdown Musculoskeletal: No Tenderness to Palpation of Joints or Extremities, No Muscle Wasting Neurological: - - No clonus. Moves all extremities spontaneously. Psych/Mental Status: Agitated Chest x-ray personally reviewed and showed poor inspiratory efforts. Bilateral hazy infiltrates. Labs: Lactate 1.4 BMP: Sodium 138, potassium 4.4, creatinine 1.1, glucose 172. Troponin was 34.9, however it was in normal range which is from 0-76.2 CBC: White count 5.4, hemoglobin 12.7, platelets 180, percent neutrophils 76.4 and lymphocytes 13.2%. Assessment/Plan All Active Problems (Last Reviewed 03/11/19 @ 15:05 by Tasha Leigh) COVID-19 (Acute) Encephalopathy, metabolic (Acute) Acute respiratory failure with hypoxia (Acute) Debility (Acute) Herpes zoster (Acute) Pressure ulcer of left buttock, stage 1 (Resolved) Pressure ulcer of right buttock, stage 1 (Resolved) 1. Acute COVID-19 pneumonitis: Patient received a 4 mg of dexamethasone at the outside emergency room. We'll give an additional 2 mg to make a total of 6 for today and then continue with 6mg for the next 9days or discharge, which ever comes first. Consultation to infectious disease to see if patient would be a candidate for remdesivir or convalescent plasma. And was seen indication to initiate antibiotics at this time. 2. Acute hypoxic respiratory failure: Patient appears to be pretty stable at this time and could likely tolerate weaning of his oxygen. Did discuss with his daughter that that is possible that things could get worse before they start getting better. Patient does have a BiPAP that he wears nightly and that is present in his room. Will continue with that at night. Patient is requiring more oxygen than we would need to continue with that. He is full CODE STATUS so if he does get to the point of intubation that is something that the family is interested in pursuing at this time. 3. Metabolic encephalopathy: Secondary to COVID-19 as well as the respiratory failure in a patient with known dementia. This will be compounded by being hospitalized and being in quarantine. Patient will have as needed haloperidol. Avoid benzodiazepines as it may paradoxically worsen his confusion. 4. A. fib: Chronic. EKG shows paced rhythm. Continue with metoprolol. Continue with aspirin. Continue with rivaroxaban. 5. Diabetes mellitus type 2: Continue with Metformin. Anticipate patient's blood sugars going up physiologic stress but also the dexamethasone 6. VTE prophylaxis: Not indicated as patient is already anticoagulated. 7. Advanced care planning: Discussed with the patient's daughter, Melinda, she confirmed that the patient is full CODE STATUS. Inpatient E&M: [id number] Init Hosp L3
[2020-01-08 21:08] VITALS: BP 109/74; PULSE 67; RESP 20; TEMP 35.7; O2SAT 98
[2020-01-08 21:15] VITALS: PULSE 67; RESP 20; O2SAT 98
[2020-01-08 21:19] VITALS: BP 109/74; PULSE 67
[2020-01-08] MEDS: Mirtazapine 15 MG Tablet PO (21:19)
[2020-01-08] MEDS: Glucerna Shake 120 ML LIQUID PO (21:19)
[2020-01-08] MEDS: Metoprolol Tartrate 25 MG Tablet PO (21:19)
[2020-01-08] MEDS: Atorvastatin Calcium 40 MG Tablet PO (21:19)
[2020-01-08] MEDS: Ranolazine 500 MG Tablet PO (21:19)
[2020-01-08] MEDS: Aspirin E.C. 81 MG Tablet PO (21:19)
[2020-01-08] MEDS: dexAMETHasone 4 MG/ML Vial 2 MG IV (21:19)
[2020-01-08] MEDS: lamoTRIgine 150 MG Tablet PO (21:20)
[2020-01-08] MEDS: 0.9% Saline Lock 10 ML Syringe IV (21:20)
[2020-01-08 21:23] LABS: AST(SGOT) 28 U/L (15-37); Alanine Aminotransfer ALT/SGPT 23 U/L (16-61); Albumin, Serum 3.1 g/dL (3.2-5.0); Alkaline Phosphatase 67 U/L (45-117); Bilirubin, Direct 0.32 mg/dL (0.00-0.30); D-Dimer Quantitative (DVT/PE) 0.76 FEU/ug/m (0.27-0.49); Globulin 3.8 g/dL (2.2-4.2); Protein, Total 6.9 g/dL (6.4-8.2)
[2020-01-08 22:10] VITALS: O2SAT 93
[2020-01-08 22:24] VITALS: PULSE 74; RESP 12; RESP 17; O2SAT 95
[2020-01-08 22:34] LABS: Procalcitonin < 0.01 ng/mL (0.00-0.09)
--- NOTE | 2020-01-08 23:34 | NURSING ---
Called Melinda Patients daughter to verify that it was ok to give Pt Remdesivir as Pt is not able to give consent.
[2020-01-09] VITALS (17 sets, daily range): BP systolic 111–120; BP diastolic 64–76; PULSE 60–96; RESP 12–20; TEMP 35.1–35.8; O2SAT 92–99
[2020-01-09] MEDS: 0.9% Saline Lock 10 ML Syringe IV ×3 (00:35→16:00)
[2020-01-09 06:10] LABS: Absolute Neutrophil Count 3.2 X10^3/uL (2.0-7.7); Basophil# 0.01 X10^3/uL; Basophil% 0.2 % (0-1); Hematocrit 37.9 % (40-54); Hemoglobin 11.7 g/dL (13.0-16.5); Lymphocyte % 14.7 % (19-41); Mean Corp Hgb Conc 30.9 g/dL (32-36); Mean Corpuscular Volume 100.3 fL (80-94); Mean Platelet Vol. 9.1 fl (6.2-12.0); Monocyte# 0.28 X10^3/uL; Monocyte% 6.9 % (0-10); NRBC Flagged by Analyzer 0 % (0-5); Neutrophil # 3.15 X10^3/uL (2.7-7.7); Neutrophil % 77.5 % (47-70); POSITIVE DIFFERENTIAL YES; POSITIVE MORPHOLOGY YES; Platelet Count 164 K/mm3 (150-450); RBC Distribution Width CV 12.4 % (11.6-14.6); RBC Distribution Width SD 46.2 fl (35.1-43.9); Red Blood Count 3.78 M/mm3 (4.6-6.2); White Blood Count 4.1 K/mm3 (4.4-11.0)
[2020-01-09 06:19] LABS: Differential Indicated SCAN CRITERIA MET
[2020-01-09 06:43] LABS: ALB/GLOB Ratio 0.8 RATIO (0.9-2.4); AST(SGOT) 31 U/L (15-37); Alanine Aminotransfer ALT/SGPT 22 U/L (16-61); Albumin, Serum 2.8 g/dL (3.2-5.0); Alkaline Phosphatase 64 U/L (45-117); Anion Gap 5 (5-15); BUN 23 mg/dL (7-18); BUN/Creat Ratio 23.8 RATIO (10-20); Calcium,Total 8.2 mg/dL (8.5-10.1); Chloride 106 mmol/L (98-107); Creatinine, Serum 0.97 mg/dL (0.70-1.30); EST Glomerular Filtration Rate 79 mL/min (>60); Est Glom Filt Rate - Afr Amer 96 mL/min (>60); Estimated Creatinine Clearance 69.44 ml/min; Globulin 3.5 g/dL (2.2-4.2); Glucose 283 mg/dL (74-106); Potassium 4.4 mmol/L (3.5-5.1); Protein, Total 6.3 g/dL (6.4-8.2); Sodium Level 136 mmol/L (136-145)
[2020-01-09 06:48] LABS: Differential Comment SCANNED
[2020-01-09] MEDS: Menthol/Lanolin/Calamine/Znox 113 GM Tube 1 APPLIC TOPICAL ×2 (09:36→21:29)
[2020-01-09] MEDS: dexAMETHasone 10 MG/ML Vial 6 MG IV (09:39)
[2020-01-09] MEDS: Multivitamins,Therapeutic Tablet 1 TABLET PO (09:45)
[2020-01-09] MEDS: Ranolazine 500 MG Tablet PO ×2 (09:45→21:30)
[2020-01-09] MEDS: Polyethylene Glycol 3350 17 GM PACKET PO (09:45)
[2020-01-09] MEDS: lamoTRIgine 150 MG Tablet PO ×2 (09:45→21:29)
[2020-01-09] MEDS: Pantoprazole Sodium 40 MG Tablet PO (09:45)
[2020-01-09] MEDS: Metoprolol Tartrate 25 MG Tablet PO ×2 (10:02→21:30)
[2020-01-09] MEDS: Docusate Sodium 100 MG Capsule PO (10:09)
[2020-01-09] MEDS: Rivaroxaban 20 MG Tablet PO (10:11)
--- NOTE | 2020-01-09 11:26 | CON.PCM_ITS ---
Problem List (1) COVID-19 Status: Acute Reason for Consult: covid Consulted by: Dr. Kulkarni History of Present Illness: The patient is a 79 year old M with some baseline dementia, got sick 12/29/19, tested (+) for covid 12/29, daughter has been taking care of him at home since then. Came to ED at [place] and transferred to [facility]. On 40% bipap overnight, changed to nasal cannula this AM. Pt unable to provide history. Started on steroids and remdesivir overnight. ROS unobtainable due to mental status. - Medical History Past Medical History (Chronic Problems): Chronic Problems (Last Reviewed 01/08/20 @ 19:[address] Robel Kulkarni, DO) ELDER on CPAP (Chronic) Degeneration of lumbar or lumbosacral intervertebral disc (Chronic) Radiculopathy of lumbosacral region (Chronic) Mixed hyperlipidemia (Chronic) Essential hypertension (Chronic) Type 2 diabetes mellitus (Chronic) Atherosclerotic heart disease of [place] coronary artery with unspecified angina pectoris (Chronic) Chest pain (Chronic) Stroke (Chronic) Alzheimer's disease (Chronic) Depression (Chronic) Atrial fibrillation (Chronic) Atherosclerotic heart disease of [place] coronary artery without angina pectoris (Chronic) S/P RCA, LCX, and OM PTCA/SARKIS in April and May of 2014; PTCA/ballooning to OM1 at [facility] in December 2017; Stroke determined by clinical assessment (Chronic) Presence of other cardiac implants and grafts (Chronic) Staged PCI done 05/15/14 to RCA & then readmitted 05/26/14 for acute coronary syndrome-PCI completed 05/28/14 Non-ST elevation (NSTEMI) myocardial infarction (Chronic) Diastolic dysfunction (Chronic) 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 (Chronic) Ischemic cardiomyopathy (Chronic) Second degree atrioventricular block (Chronic) Presence of cardiac pacemaker (Chronic) Pacemaker implant 05/15/14 H/O: stroke (Chronic) H/O myocardial infarction, greater than 8 weeks (Chronic) Dementia (Chronic) Allergies/Adverse Reactions: Allergies citalopram [From Celexa] Adverse Reaction (Intermediate, Verified 10/14/19 09:59) Unknown isosorbide [From Imdur] Adverse Reaction (Verified 10/14/19 09:59) Low blood pressure lisinopril Adverse Reaction (Verified 10/14/19 09:59) Low blood pressure Home Medications: Ambulatory Orders Medication Instructions Recorded aspirin 81 mg tablet,delayed 81 mg PO QHS tab 05/16/17 release nitroglycerin 0.4 mg sublingual 0.4 mg SUBLINGUAL Q5M PRN 05/16/17 tablet multivitamin 1 tab PO QDAY 09/12/17 vitamin E (dl, acetate) 400 unit 400 unit PO QDAY 09/12/17 capsule Metoprolol Tartrate 25 mg PO BID 01/18/18 Polyethylene Glycol 3350 [Miralax] 17 gm PO DAILY 01/18/18 Acetaminophen [Tylenol Extra 1,000 mg PO Q6H PRN PRN 01/22/18 Strength] Atorvastatin Calcium [Lipitor] 40 mg PO QHS tab 02/01/18 Mirtazapine [Remeron] 15 mg PO QHS #30 tab 02/01/18 Pantoprazole Sodium [Protonix] 40 mg PO DAILY #30 tab 02/05/18 tramadol 50 mg tablet 100 mg PO Q4H PRN tab 03/19/18 ranolazine 500 mg tablet,extended 500 mg PO BID #180 tab 05/03/18 release,12 hr furosemide 20 mg tablet 20 mg PO DAILY PRN 12/13/18 metformin 500 mg tablet 500 mg PO DAILY 12/13/18 Ondansetron [Zofran Odt] 4 mg PO Q8H PRN PRN #10 tab 01/06/20 Ascorbic Acid [Vitamin C] 1,000 mg PO DAILY 01/08/20 Docusate Sodium [Colace] 100 mg PO DAILY 01/08/20 Lamotrigine [Lamictal] 150 mg PO BID 01/08/20 Psyllium Husk (with Sugar) [Fiber 2 t PO DAILY 01/08/20 Therapy Powder] Rivaroxaban [Xarelto] 20 mg PO DAILY 01/08/20 - Social History Tobacco Use: non-smoker Vital Signs Temp Pulse Resp BP Pulse Ox 95.2 F L 67 20 H 111/64 96 01/09/20 09:48 01/09/20 10:02 01/09/20 09:48 01/09/20 09:48 01/09/20 09:48 Oxygen Flow Rate (L/min) 2 Oxygen Delivery Method Nasal Cannula Weight: 102.058 kg Body Mass Index (BMI) 28.8 Finger Stick Blood Glucose 160 Laboratory Tests Past 24 Hrs 01/08/20 01/08/20 01/08/20 20:35 20:35 20:35 WBC RBC Hgb Hct MCV MCH MCHC RDW Std Deviation RDW Coeff of Az Plt Count MPV Immature Gran % (Auto) Neut % (Auto) Lymph % (Auto) [place] % (Auto) Eos % (Auto) Baso % (Auto) Absolute Neuts (auto) Absolute Lymphs (auto) Nucleated RBC % Differential Comment Diff Path Review D-Dimer Quant (PE/DVT) 0.76 H* Sodium Potassium Chloride Carbon Dioxide Anion Gap BUN Creatinine Estim Creat Clear Calc Est GFR (MDRD) Af Amer Est GFR (MDRD) Non-Af BUN/Creatinine Ratio Glucose Calcium Total Bilirubin 0.70 Direct Bilirubin 0.32 H AST 28 ALT 23 Alkaline Phosphatase 67 Total Protein 6.9 Albumin 3.1 L Globulin 3.8 Albumin/Globulin Ratio Procalcitonin < 0.01 Blood Type 01/08/20 01/09/20 01/09/20 20:35 05:40 05:40 WBC 4.1 L RBC 3.78 L Hgb 11.7 L Hct 37.9 L MCV 100.3 H MCH 31.0 MCHC 30.9 L RDW Std Deviation 46.2 H RDW Coeff of Az 12.4 Plt Count 164 MPV 9.1 Immature Gran % (Auto) 0.700 Neut % (Auto) 77.5 H Lymph % (Auto) 14.7 L [place] % (Auto) 6.9 Eos % (Auto) 0.0 Baso % (Auto) 0.2 Absolute Neuts (auto) 3.2 Absolute Lymphs (auto) 0.60 L Nucleated RBC % 0 Differential Comment SCANNED Diff Path Review May foll D-Dimer Quant (PE/DVT) Sodium 136 Potassium 4.4 Chloride 106 Carbon Dioxide 25.0 Anion Gap 5 BUN 23 H Creatinine 0.97 Estim Creat Clear Calc 69.44 Est GFR (MDRD) Af Amer 96 Est GFR (MDRD) Non-Af 79 BUN/Creatinine Ratio 23.8 H Glucose 283 H Calcium 8.2 L Total Bilirubin 0.50 Direct Bilirubin AST 31 ALT 22 Alkaline Phosphatase 64 Total Protein 6.3 L Albumin 2.8 L Globulin 3.5 Albumin/Globulin Ratio 0.8 L Procalcitonin Blood Type A POSITIVE - Other Studies Radiology: [] reviewed Other Studies: [] Route of nutrition/ use of supplements: [] Nutritional Intake: [] IV Site: [] Ashley Catheter: [] - Physical Exam General: No apparent distress, Confused, Lethargic HEENT: Atraumatic, PERRLA, EOMI Neck: Supple, No Nodes Lungs: Diminished Cardiovascular: Regular rate, Regular Rhythm Abdomen: Soft, Non Tender, Non-Distended Extremities: No edema Skin: No rashes IV Site: Peripheral, without redness Musculoskeletal: No Tenderness to Palpation of Joints or Extremities Neurological: Cranial nerves II-XII grossly intact - Assessment/Plan Antibiotics: [] Assessment/Plan: [] Active and Suspected Problems (Last Reviewed 01/08/20 @ 19:[address] Robel Kulkarni, DO) COVID-19 (Acute) Encephalopathy, metabolic (Acute) Acute respiratory failure with hypoxia (Acute) Debility (Acute) Herpes zoster (Acute) Sx started 12/29/19. On dex, remdesivir, xarelto. Reviewed EUA and risks/bene fits of plasma with daughter Melinda, his POA. She agrees to transfusion. Will follow, thank you, d/w primary team
--- NOTE | 2020-01-09 11:40 | CASEMGMT ---
RYAN CM Assessment- Information received through daughterMelinda Patient and family have masks, gloves, disinfectants. Daughters manage all medications and appts, buys groceries, and are able to warehouse picker prescriptions. PCP: Dr Gaston Yip Specialists: Dr Hager--cardiology, Dr Abbott[facility], Dr Cai--pain mgmt. Preferred Pharmacy: [facility] Insurance: [facility], [facility] Prescription Benefit: Yes. Living Will/HPOA: Has both LW and Healthcare POA: Melinda Harrison and Jaylyn Sams LNOK: Has 6 children: Melinda and Jaylyn are primary caregivers. Other children: Gricel, Bakari, Lauren, Magali. Living Arrangements: Lives alone in 2-story home w/basement. FFSU. Ramp entrance. Has 24/7 caregivers who do all ADL's and IADL's. Pt was able to feed self prior to present illness and ambulated w/either a cane or walker w/assistance. Max assist of 2 to transfer since present illness. Transportation: Family provides all transportation DME: Hospital bed, shower chair, rails/grab bars, hand-held shower, lift chair, WW, cane, ceiling lift for transfers, pulse oximeter, BP machine, gait belt No home O2. First preference of DME company if pt requires O2 @ discharge is [employer]. HHC/SNF: Hx: TCU. Current with [facility]. Social Work Consult: Family wishes for TCU @ discharge. DC PLAN: TBD. Dariana PALOMARES RN ACM
--- NOTE | 2020-01-09 13:27 | PN_ITS ---
Patient Problems: Active and Suspected Problems (Last Reviewed 01/08/20 @ 19:[address] Robel Kulkarni, DO) COVID-19 (Acute) Encephalopathy, metabolic (Acute) Acute respiratory failure with hypoxia (Acute) Debility (Acute) Herpes zoster (Acute) Subjective: Patient overnight with no acute events per self and per nursing report but re addison extremely fatigued and weak. Patient continues to need supplemental oxygen and was on BiPAP overnight which is chronic for him. He notes still feeling dyspneic without marked cough. He denies any recent loss or alteration to his sense of taste or smell. Per discussion with family had been active with decent quality of life prior to current onset of this infection. He denies any associated fever, chills, nausea, emesis, abdominal pain, diarrhea. Objective: Physical Examination: General: awake, alert, oriented to self, place, recent events, remains cooperative, seated upright in the surgical Covid unit bed in no apparent distress but visibly fatigued and weak. Skin: normal color, turgor, no icterus, cyanosis. HEENT: AT/NC, EOMI, PERRLA, dry MM. Lungs: Diminished breath sounds bilaterally, greater bases, currently comfortable appearing on supplemental oxygen, no rales, ronchi or wheezing. Heart: Regular rate and rhythm; no gallop, rub audible. Abdomen: soft, NTTP, ND, normal BS. Extremities: no cyanosis, clubbing, or edema. Neurological: patient awake, alert, oriented as noted; cognitive function suspect mildly decreased from baseline intact; pupils equally reactive to light and accomodation; cranial nerves II-XII grossly normal, moving all 4 extremities, no focal deficits, strength severely global decrease secondary to acute presentation. Psychiatric: affect appears flat, fatigued, ill-appearing, no acute evidence of depressive or anxiety feelings. Vitals/I&O's: Vital Signs Temp Pulse Resp BP Pulse Ox 95.2 F L 67 20 H 111/64 96 01/09/20 09:48 01/09/20 10:02 01/09/20 09:48 01/09/20 09:48 01/09/20 09:48 Oxygen Flow Rate (L/min) 2 Oxygen Delivery Method Nasal Cannula Weight: 225 lb Body Mass Index (BMI) 28.8 Finger Stick Blood Glucose 160 Intake and Output for Last 24 Hours 01/07/20 01/08/20 01/09/20 23:59 23:59 23:59 Intake Total 678 / 678 Balance 678 / 678 Laboratory Results 01/08/20 20:35: D-Dimer Quant (PE/DVT) 0.76 H* 01/08/20 20:35: Procalcitonin < 0.01 01/08/20 20:35: Total Bilirubin 0.70, Direct Bilirubin 0.32 H, AST 28, ALT 23, Alkaline Phosphatase 67, Total Protein 6.9, Albumin 3.1 L, Globulin 3.8 01/08/20 20:35: Blood Type A POSITIVE 01/09/20 05:40: WBC 4.1 L, RBC 3.78 L, Hgb 11.7 L, Hct 37.9 L, MCV 100.3 H, MCH 31.0, MCHC 30.9 L, RDW Std Deviation 46.2 H, RDW Coeff of Az 12.4, Plt Count 16 4, MPV 9.1, Immature Gran % (Auto) 0.700, Neut % (Auto) 77.5 H, Lymph % (Auto) 14.7 L, [place] % (Auto) 6.9, Eos % (Auto) 0.0, Baso % (Auto) 0.2, Absolute Neuts (auto) 3.2, Absolute Lymphs (auto) 0.60 L, Nucleated RBC % 0, Differential Comment SCANNED, Diff Path Review June01/09/20 05:40: Sodium 136, Potassium 4.4, Chloride 106, Carbon Dioxide 25.0, Anion Gap 5, BUN 23 H, Creatinine 0.97, Estim Creat Clear Calc 69.44, Est GFR (MDRD) Af Amer 96, Est GFR (MDRD) Non-Af 79, BUN/Creatinine Ratio 23.8 H, Glucose 283 H, Calcium 8.2 L, Total Bilirubin 0.50, AST 31, ALT 22, Alkaline Phosphatase 64, Total Protein 6.3 L, Albumin 2.8 L, Globulin 3.5, Albumin/Globulin Ratio 0.8 L Current Medications Acetaminophen (Acetaminophen 500 Mg Tablet) 1,000 mg PO Q6H PRN PRN PRN Reason: Pain Score 1-10 Aspirin (Aspirin E.C. 81 Mg Tablet) 81 mg PO QHS [facility] Last Admin: 01/08/20 21:19 Dose: 81 mg Documented by: Atorvastatin Calcium (Atorvastatin Calcium 40 Mg Tablet) 40 mg PO QHS [facility] Last Admin: 01/08/20 21:19 Dose: 40 mg Documented by: Calamine/Phenol (Menthol/Lanolin/Calamine/Znox 113 Gm Tube) 1 applic TOPICAL BID [facility]; Protocol Last Admin: 01/09/20 09:36 Dose: 1 applic Documented by: Dexamethasone Sodium Phosphate (Dexamethasone 10 Mg/Ml Vial) 6 mg IV DAILY [facility] Stop: 01/18/20 10:01 Last Admin: 01/09/20 09:39 Dose: 6 mg Documented by: Docusate Sodium (Docusate Sodium 100 Mg Capsule) 100 mg PO DAILY [facility] Last Admin: 01/09/20 10:09 Dose: 100 mg Documented by: Furosemide (Furosemide 20 Mg Tablet) 20 mg PO DAILY PRN PRN Reason: EDEMA Haloperidol Lactate (Haloperidol Lactate 5 Mg/Ml Vial) 1 mg IM Q4H PRN PRN PRN Reason: uncontrollable anxiety Remdesivir 100 mg/ Sodium (Chloride) 250 mls @ 125 mls/hr IV QHS [facility]; Protocol Stop: 01/12/20 23:59 Sodium Chloride () 250 mls @ 15 mls/hr IV .[id number] PRN PRN Reason: Saline Flush Last Infusion: 01/09/20 03:04 Dose: 0 mls/hr Documented by: Sodium Chloride () 250 mls @ 15 mls/hr IV .[id number] PRN PRN Reason: Additional IVPB Infusion Lamotrigine (Lamotrigine 150 Mg Tablet) 150 mg PO BID [facility] Last Admin: 01/09/20 09:45 Dose: 150 mg Documented by: Metoprolol Tartrate (Metoprolol Tartrate 25 Mg Tablet) 25 mg PO BID [facility] Last Admin: 01/09/20 10:02 Dose: 25 mg Documented by: Mirtazapine (Mirtazapine 15 Mg Tablet) 15 mg PO QHS [facility] Last Admin: 01/08/20 21:19 Dose: 15 mg Documented by: Multivitamins (Multivitamins,Therapeutic Tablet) 1 tablet PO DAILY [facility] Last Admin: 01/09/20 09:45 Dose: 1 tablet Documented by: Nitroglycerin (Nitroglycerin (Inpatient Use) 0.4 Mg Tab.Subl) 0.4 mg SUBLINGUAL Q5M PRN PRN Reason: Angina Ondansetron HCl (Ondansetron Odt 4 Mg Tablet) 4 mg PO Q8H PRN PRN PRN Reason: NAUSEA Pantoprazole Sodium (Pantoprazole Sodium 40 Mg Tablet) 40 mg PO DAILY [facility] Last Admin: 01/09/20 09:45 Dose: 40 mg Documented by: Polyethylene Glycol (Polyethylene Glycol 3350 17 Gm Packet) 17 gm PO DAILY [facility] Last Admin: 01/09/20 09:45 Dose: 17 gm Documented by: Ranolazine (Ranolazine 500 Mg Tablet) 500 mg PO BID [facility] Last Admin: 01/09/20 09:45 Dose: 500 mg Documented by: Rivaroxaban (Rivaroxaban 20 Mg Tablet) 20 mg PO DAILY [facility] Last Admin: 01/09/20 10:11 Dose: 20 mg Documented by: Sodium Chloride (0.9% Saline Lock 10 Ml Syringe) 10 - 40 ml IV UD PRN PRN Reason: SALINE FLUSH Last Admin: 01/09/20 09:39 Dose: 10 ml Documented by: Tramadol HCl (Tramadol 50 Mg Tablet) 100 mg PO Q4H PRN PRN Reason: Pain Score 4-10 STROKE Vital Signs/Narrative: Vital Signs Temp Pulse Resp BP Pulse Ox 01/09/20 10:02 67 01/09/20 09:48 95.2 F L 67 20 H 111/64 96 Medical Necessity - Tobacco Use Smoking Status: Never smoker Assessment/Plan All Active Problems (Last Reviewed 01/08/20 @ 19:[address] Robel Kulkarni, DO) COVID-19 (Acute) Encephalopathy, metabolic (Acute) Acute respiratory failure with hypoxia (Acute) Debility (Acute) Herpes zoster (Acute) Pressure ulcer of left buttock, stage 1 (Resolved) Pressure ulcer of right buttock, stage 1 (Resolved) The patient is an 79 y/o M w/ PMHx: ELDER on CPAP q HS, OA, HTN, HLD, CAD s/p PCI, Hx CVA, Alzheimer's dementia, Diabetes mellitus type II, GERD who presents to the [facility] ED on 01/08/20 with history of onset illness 12/29/2019 with fatigue, malaise, fever, body aches, cough and dyspnea with positive Covid testing on 12/29 with family caring for him since however patient with increased work of breathing, accessory muscle usage with outside ED presentation with transfer to [facility] for further care. 1. Acute Dyspnea, Cough with Bilateral Pneumonia secondary to Acute Viral Syndrome, COVID-19: Work-up upon presentation included CBC with WC 4.1, hemoglobin 11.7, platelet 164 with lymphopenia, D-dimer 0.76 but normal once age-adjusted, CMP with glucose 283 otherwise not marked appearing, pro calcitonin less than 0.01. Patient with symptoms consistent with Covid, positive outpatient testing, film at outside facility consistent with Covid pneumonia, transition to Covid unit at [facility], will maintain on oxygen with wean as tolerated to room air, continue PRN albuterol, HOB, IS parameters, BIPAP q HS continued, maintained on IV decadron and remdesivir with planned convalescent plasma per infectious disease discussions with family, pulmonary also following, continue supportive care including q 2 hour turning including prone given no prone bed availability and judicious hydration, closely monitor for worsening status for ARDS and multiorgan failure. Continue on Xarelto. 2. CAD: Patient s/p PCI w/ RCA, LCX, and OM PTCA/SARKIS in April, May of 2014 as well as PTCA/ballooning to OM1 at [facility] in December 2017, continue aspirin, Xarelto, statin therapy, metoprolol, not on ORION inhibitor or ARB with allergy listed. 3. History of prior CVA: We will continue patient home aspirin, Xarelto, statin therapy, hypertensive regimen and diabetic regimen. 4. Diabetes mellitus type II: Hold oral home regimen, ADA diet, accu checks w/ ISS. 5. Hypertension: Continue home regimen including metoprolol, Lasix with hold parameters, PRN hydralazine. 6. Hyperlipidemia: Continue home statin regimen. 7. Alzheimer's dementia without behavioral disturbance history: We will continue patient home Remeron regimen. 8. ELDER: Currently BIPAP q HS given presentation. 9. GERD: Continue home PPI. 10. DVT Prophylaxis: SCDs, continue home xarelto regimen. 11. CODE status: Full Code. Confirmed with patient's daughter upon update today per patient request. Inpatient E&M: [id number] [facility] L3
--- NOTE | 2020-01-09 13:29 | CASEMGMT ---
Social Work SW received referral that pt dgt is requesting TCU at discharge. Phone call to Benita in TCU and Benita confirms that pt will need two negative covid tests prior to admission to TCU. TCU does not accept pt without two negative tests regardless of how long ago pt tested positive. FILI Montgomery
[2020-01-09 13:49] LABS: Pathologist Review Reviewed
--- NOTE | 2020-01-09 14:12 | PCM.CONS.PUL ---
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 Qualifiers: (10) Debility Status: Acute (11) Stroke Status: Chronic (12) Alzheimer's disease Status: Chronic (13) Depression Status: Chronic (14) Atrial fibrillation Status: Chronic Qualifiers: (15) Diastolic dysfunction Status: Chronic (16) Other longterm (current) drug therapy Status: Chronic (17) Ischemic cardiomyopathy Status: Chronic (18) Presence of cardiac pacemaker Status: Chronic Comment: Pacemaker implant 05/15/14 (19) Dementia Status: Chronic Reason for Consult Date of Consultation: 01/09/20 Reason for Consultation: COVID-19 History of Present Illness: The patient is an 79 year old M, with past medical history listed below, who presented to [facility] on 01/08/2020 secondary to shortness of breath. Patient reportedly started to feel sick on December 28 and was checked for COVID-19 and found to be positive. Since then, patient has become more confused and short of breath. Patient has a baseline dementia and is unable to provide any history. Most of the history was from review of the medical record. Patient reportedly had presented to an outside emergency room and was noted to be hypoxic with sats dropping to 85% on room air. The patient was titrated to 4 L nasal cannula to maintain saturations. Patient did receive Decadron, but was transferred to [facility] for further evaluation immediately to the cohort floor. On arrival, patient was saturating well on 6 L nasal cannula. Patient had a normal blood pressure of 113/71 and was afebrile. Laboratory work-up had shown a creatinine of 1.1, lactate of 1.4 and a slightly elevated glucose at 172. Patient did not have any significant leukocytosis at 5.4. Hospitalist initiated patient on Decadron therapy. Patient reportedly wears BiPAP at night at baseline, so this was continued. Unable to obtain a review of systems secondary to patient's metabolic encephalopathy. Past Medical History Past Medical History (Chronic Problems): Chronic Problems (Last Reviewed 01/08/20 @ 19:[address] Robel Kulkarni, DO) ELDER on CPAP (Chronic) Degeneration of lumbar or lumbosacral intervertebral disc (Chronic) Radiculopathy of lumbosacral region (Chronic) Mixed hyperlipidemia (Chronic) Essential hypertension (Chronic) Type 2 diabetes mellitus (Chronic) Atherosclerotic heart disease of [place] coronary artery with unspecified angina pectoris (Chronic) Chest pain (Chronic) Stroke (Chronic) Alzheimer's disease (Chronic) Depression (Chronic) Atrial fibrillation (Chronic) Atherosclerotic heart disease of [place] coronary artery without angina pectoris (Chronic) S/P RCA, LCX, and OM PTCA/SARKIS in April and May of 2014; PTCA/ballooning to OM1 at [facility] in December 2017; Stroke determined by clinical assessment (Chronic) Presence of other cardiac implants and grafts (Chronic) Staged PCI done 05/15/14 to RCA & then readmitted 05/26/14 for acute coronary syndrome-PCI completed 05/28/14 Non-ST elevation (NSTEMI) myocardial infarction (Chronic) Diastolic dysfunction (Chronic) Other longterm (current) drug therapy (Chronic) Ischemic cardiomyopathy (Chronic) Second degree atrioventricular block (Chronic) Presence of cardiac pacemaker (Chronic) Pacemaker implant 05/15/14 H/O: stroke (Chronic) H/O myocardial infarction, greater than 8 weeks (Chronic) Dementia (Chronic) Medical History: Medical History (Last Reviewed 01/08/20 @ 19:[address] Robel Kulkarni, DO) Mixed hyperlipidemia (Chronic) E78.2 Essential hypertension (Chronic) I10 Type 2 diabetes mellitus (Chronic) E11.9 Atherosclerotic heart disease of [place] coronary artery with unspecified angina pectoris (Chronic) I25.119 Chest pain (Chronic) R07.9 Debility (Acute) R53.81 Herpes zoster (Acute) B02.9 Stroke (Chronic) I63.9 Alzheimer's disease (Chronic) G30.9, F02.80 Depression (Chronic) F32.9 Atrial fibrillation (Chronic) I48.91 Atherosclerotic heart disease of [place] coronary artery without angina pectoris (Chronic) I25.10 S/P RCA, LCX, and OM PTCA/SARKIS in April and May of 2014; PTCA/ballooning to OM1 at [facility] in December 2017; Stroke determined by clinical assessment (Chronic) I63.9 Non-ST elevation (NSTEMI) myocardial infarction (Chronic) I21.4 Diastolic dysfunction (Chronic) I51.9 Other longterm (current) drug therapy (Chronic) Z79.899 Ischemic cardiomyopathy (Chronic) I25.5 Second degree atrioventricular block (Chronic) I44.1 H/O: stroke (Chronic) Z86.73 H/O myocardial infarction, greater than 8 weeks (Chronic) I25.2 Dementia (Chronic) F03.90 Depression F32.9 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, 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 Pressure ulcer of left buttock, stage 1 (Resolved) L89.321 Pressure ulcer of right buttock, stage 1 (Resolved) L89.311 Coronary artery disease (Inactive) I25.10 Diabetes mellitus (Inactive) E11.9 Diabetes type 2, uncontrolled (Inactive) E11.65 Hyperlipidemia (Inactive) E78.5 Hypertension (Inactive) I10 Allergies citalopram [From Celexa] Adverse Reaction (Intermediate, Verified 10/14/19 09:59) Unknown isosorbide [From Imdur] Adverse Reaction (Verified 10/14/19 09:59) Low blood pressure lisinopril Adverse Reaction (Verified 10/14/19 09:59) Low blood pressure Home Medications: Ambulatory Orders Medication Instructions Recorded aspirin 81 mg tablet,delayed 81 mg PO QHS tab 05/16/17 release nitroglycerin 0.4 mg sublingual 0.4 mg SUBLINGUAL Q5M PRN 05/16/17 tablet multivitamin 1 tab PO QDAY 09/12/17 vitamin E (dl, acetate) 400 unit 400 unit PO QDAY 09/12/17 capsule Metoprolol Tartrate 25 mg PO BID 01/18/18 Polyethylene Glycol 3350 [Miralax] 17 gm PO DAILY 01/18/18 Acetaminophen [Tylenol Extra 1,000 mg PO Q6H PRN PRN 01/22/18 Strength] Atorvastatin Calcium [Lipitor] 40 mg PO QHS tab 02/01/18 Mirtazapine [Remeron] 15 mg PO QHS #30 tab 02/01/18 Pantoprazole Sodium [Protonix] 40 mg PO DAILY #30 tab 02/05/18 tramadol 50 mg tablet 100 mg PO Q4H PRN tab 03/19/18 ranolazine 500 mg tablet,extended 500 mg PO BID #180 tab 05/03/18 release,12 hr furosemide 20 mg tablet 20 mg PO DAILY PRN 12/13/18 metformin 500 mg tablet 500 mg PO DAILY 12/13/18 Ondansetron [Zofran Odt] 4 mg PO Q8H PRN PRN #10 tab 01/06/20 Ascorbic Acid [Vitamin C] 1,000 mg PO DAILY 01/08/20 Docusate Sodium [Colace] 100 mg PO DAILY 01/08/20 Lamotrigine [Lamictal] 150 mg PO BID 01/08/20 Psyllium Husk (with Sugar) [Fiber 2 t PO DAILY 01/08/20 Therapy Powder] Rivaroxaban [Xarelto] 20 mg PO DAILY 01/08/20 Surgical History: Surgical History (Last Reviewed 01/08/20 @ 19:[address] Robel Kulkarni DO) Presence of other cardiac implants and grafts (Chronic) Z95.818 Staged PCI done 05/15/14 to RCA & then readmitted 05/26/14 for acute coronary syndrome-PCI completed 05/28/14 Presence of cardiac pacemaker (Chronic) Z95.0 Pacemaker implant 05/15/14 Surgical History: coronary bypass surgery, pacemaker implantation Psychiatric History: Depression Smoking Status: Never smoker - *Family History Maternal Family History: Family History (Last Reviewed 01/08/20 @ 19:[address] Robel Kulkarni DO) Other Heart disease History Items: No pertinent history Paternal Family History: Family History (Last Reviewed 01/08/20 @ 19:[address] Robel Kulkarni DO) Other Heart disease History Items: No pertinent history Review of Systems Unable to obtain accurate/complete ROS d/t: Metabolic encephalopathy Patient Problems: Active and Suspected Problems (Last Reviewed 01/08/20 @ 19:[address] Robel Kulkarni DO) COVID-19 (Acute) Encephalopathy, metabolic (Acute) Acute respiratory failure with hypoxia (Acute) Debility (Acute) Herpes zoster (Acute) Objective: Outside imaging was reviewed using disc provided. - Physical Exam Vitals/I&O's: Vital Signs Temp Pulse Resp BP Pulse Ox 35.1 C L 67 20 H 111/64 96 01/09/20 09:48 01/09/20 10:02 01/09/20 09:48 01/09/20 09:48 01/09/20 09:48 Oxygen Flow Rate (L/min) 2 Oxygen Delivery Method Nasal Cannula Weight: 102.058 kg Body Mass Index (BMI) 28.8 Finger Stick Blood Glucose 160 Intake and Output for Last 24 Hours 01/07/20 01/08/20 01/09/20 23:59 23:59 23:59 Intake Total 678 / 678 Balance 678 / 678 General: Alert, Cooperative - Intermittently, No apparent distress, - - Masked facies. Makes eye contact. HEENT: Atraumatic, PERRLA, EOMI, Normocephalic, - - No scleral injection or icterus Oral: Moist Mucosa, No Gingival or Mucosal Lesions/ Ulcerations Neck: Supple, No JVD, No Nodes, Trachea Midline Lungs: No rhonchi, No wheeze, No rales, Diminished Cardiovascular: Normal S1, Normal S2, Irregular Rate, Murmur - Grade 2 out of 6 systolic ejection murmur at the right sternal border, No rub noted, No Gallop Abdomen: Bowel Sounds Present, Soft, Non Tender, Non-Distended Extremities: No clubbing, No cyanosis, No edema, Capillary Refill Less than 3 Seconds Skin: No rashes, No breakdown Musculoskeletal: No Tenderness to Palpation of Joints or Extremities Lymphatic: No Cervical, Supraclavicular, or Inguinal Adenopathy Neurological: Cranial nerves II-XII grossly intact, Neuro grossly intact, - - Nonfocal exam. Does move both sides spontaneously. Sensation appears to be intact Psych/Mental Status: Flat Affect Laboratory Results 01/08/20 20:35: D-Dimer Quant (PE/DVT) 0.76 H* 01/08/20 20:35: Procalcitonin < 0.01 01/08/20 20:35: Total Bilirubin 0.70, Direct Bilirubin 0.32 H, AST 28, ALT 23, Alkaline Phosphatase 67, Total Protein 6.9, Albumin 3.1 L, Globulin 3.8 01/08/20 20:35: Blood Type A POSITIVE 01/09/20 05:40: WBC 4.1 L, RBC 3.78 L, Hgb 11.7 L, Hct 37.9 L, MCV 100.3 H, MCH 31.0, MCHC 30.9 L, RDW Std Deviation 46.2 H, RDW Coeff of Az 12.4, Plt Count 164, MPV 9.1, Immature Gran % (Auto) 0.700, Neut % (Auto) 77.5 H, Lymph % (Auto) 14.7 L, Webb % (Auto) 6.9, Eos % (Auto) 0.0, Baso % (Auto) 0.2, Absolute Neuts (auto) 3.2, Absolute Lymphs (auto) 0.60 L, Nucleated RBC % 0, Differential Comment SCANNED, Diff Path Review Reviewed 01/09/20 05:40: Sodium 136, Potassium 4.4, Chloride 106, Carbon Dioxide 25.0, Anion Gap 5, BUN 23 H, Creatinine 0.97, Estim Creat Clear Calc 69.44, Est GFR (MDRD) Af Amer 96, Est GFR (MDRD) Non-Af 79, BUN/Creatinine Ratio 23.8 H, Glucose 283 H, Calcium 8.2 L, Total Bilirubin 0.50, AST 31, ALT 22, Alkaline Phosphatase 64, Total Protein 6.3 L, Albumin 2.8 L, Globulin 3.5, Albumin/Globulin Ratio 0.8 L Current Medications Acetaminophen (Acetaminophen 500 Mg Tablet) 1,000 mg PO Q6H PRN PRN PRN Reason: Pain Score 1-10 Albuterol Sulfate (Albuterol Ih 8.5 Gm (Proair) Inhaler (200 Puffs)) 4 - 8 puff INHALATION Q4H PRN PRN PRN Reason: Dyspnea, wheezing Aspirin (Aspirin E.C. 81 Mg Tablet) 81 mg PO QHS [facility] Last Admin: 01/08/20 21:19 Dose: 81 mg Documented by: Atorvastatin Calcium (Atorvastatin Calcium 40 Mg Tablet) 40 mg PO QHS [facility] Last Admin: 01/08/20 21:19 Dose: 40 mg Documented by: Calamine/Phenol (Menthol/Lanolin/Calamine/Znox 113 Gm Tube) 1 applic TOPICAL BID DAGO; Protocol Last Admin: 01/09/20 09:36 Dose: 1 applic Documented by: Dexamethasone Sodium Phosphate (Dexamethasone 10 Mg/Ml Vial) 6 mg IV DAILY [facility] Stop: 01/18/20 10:01 Last Admin: 01/09/20 09:39 Dose: 6 mg Documented by: Dextrose (Dextrose 50%-Water 25 Gm/50 Ml Disp.Syrin) 0 gm IV X1 PRN; Protocol PRN Reason: Hypoglycemia Docusate Sodium (Docusate Sodium 100 Mg Capsule) 100 mg PO DAILY [facility] Last Admin: 01/09/20 10:09 Dose: 100 mg Documented by: Furosemide (Furosemide 20 Mg Tablet) 20 mg PO DAILY PRN PRN Reason: EDEMA Glucagon (Glucagon 1 Mg/Ml Syringe) 1 mg IM .X1 PRN PRN Reason: Hypoglycemia Haloperidol Lactate (Haloperidol Lactate 5 Mg/Ml Vial) 1 mg IM Q4H PRN PRN PRN Reason: uncontrollable anxiety Hydralazine HCl (Hydralazine 20 Mg/Ml Vial) 10 mg IV Q4H PRN PRN PRN Reason: SBP > 160 Remdesivir 100 mg/ Sodium (Chloride) 250 mls @ 125 mls/hr IV QHS [facility]; Protocol Stop: 01/12/20 23:59 Sodium Chloride () 250 mls @ 15 mls/hr IV .[id number] PRN PRN Reason: Saline Flush Last Infusion: 01/09/20 03:04 Dose: 0 mls/hr Documented by: Sodium Chloride () 250 mls @ 15 mls/hr IV .[id number] PRN PRN Reason: Additional IVPB Infusion Insulin Human Lispro (Insulin Lispro 100 Unit/Ml Insuln.Pen) 0 unit SC ACHS [facility]; Protocol Lamotrigine (Lamotrigine 150 Mg Tablet) 150 mg PO BID [facility] Last Admin: 01/09/20 09:45 Dose: 150 mg Documented by: Metoprolol Tartrate (Metoprolol Tartrate 25 Mg Tablet) 25 mg PO BID [facility] Last Admin: 01/09/20 10:02 Dose: 25 mg Documented by: Mirtazapine (Mirtazapine 15 Mg Tablet) 15 mg PO QHS [facility] Last Admin: 01/08/20 21:19 Dose: 15 mg Documented by: Multivitamins (Multivitamins,Therapeutic Tablet) 1 tablet PO DAILY [facility] Last Admin: 01/09/20 09:45 Dose: 1 tablet Documented by: Nitroglycerin (Nitroglycerin (Inpatient Use) 0.4 Mg Tab.Subl) 0.4 mg SUBLINGUAL Q5M PRN PRN Reason: Angina Ondansetron HCl (Ondansetron Odt 4 Mg Tablet) 4 mg PO Q8H PRN PRN PRN Reason: NAUSEA Pantoprazole Sodium (Pantoprazole Sodium 40 Mg Tablet) 40 mg PO DAILY [facility] Last Admin: 01/09/20 09:45 Dose: 40 mg Documented by: Polyethylene Glycol (Polyethylene Glycol 3350 17 Gm Packet) 17 gm PO DAILY [facility] Last Admin: 01/09/20 09:45 Dose: 17 gm Documented by: Ranolazine (Ranolazine 500 Mg Tablet) 500 mg PO BID [facility] Last Admin: 01/09/20 09:45 Dose: 500 mg Documented by: Rivaroxaban (Rivaroxaban 20 Mg Tablet) 20 mg PO DAILY [facility] Last Admin: 01/09/20 10:11 Dose: 20 mg Documented by: Sodium Chloride (0.9% Saline Lock 10 Ml Syringe) 10 - 40 ml IV UD PRN PRN Reason: SALINE FLUSH Last Admin: 01/09/20 09:39 Dose: 10 ml Documented by: Tramadol HCl (Tramadol 50 Mg Tablet) 100 mg PO Q4H PRN PRN Reason: Pain Score 4-10 Assessment/Plan All Active Problems (Last Reviewed 01/08/20 @ 19:[address] Robel Kulkarni, DO) COVID-19 (Acute) Encephalopathy, metabolic (Acute) Acute respiratory failure with hypoxia (Acute) Debility (Acute) Herpes zoster (Acute) Pressure ulcer of left buttock, stage 1 (Resolved) Pressure ulcer of right buttock, stage 1 (Resolved) RECOMMENDATIONS: 1. Initiate convalescent serum, remdesivir, Decadron and anticoagulation 2. Monitor oxygen status closely. Wean oxygen as tolerated during the day 3. Continue BiPAP at night 4. Follow delirium protocol IMPRESSIONS: 1. Pneumonia secondary to COVID-19 Family is wishing to have aggressive measures. Patient would be a candidate for convalescent serum, remdesivir and Decadron. Patient should continue with his baseline rivaroxaban as this should provide plenty of anticoagulation to avoid thrombotic risk. Patient is not currently on antibiotics at this time, which I believe is appropriate. Continue to follow clinically. 2. Metabolic encephalopathy with baseline dementia Patient reportedly has dementia at baseline, but may be worse off at this time. Recommend following delirium protocol and avoid benzodiazepines. Patient does have Haldol as needed. 3. Chronic A. fib/diabetes mellitus/advanced age Complicates care, management, recovery and prognosis. We will need to watch patient's blood sugars closely given baseline diabetes and concomitant steroid therapy. No significant hypertension has been noted. Inpatient E&M: 86883 Init Hosp L2
--- NOTE | 2020-01-09 15:55 | CASEMGMT ---
RN CHOCO Note: Call to Daughter Melinda to update re: TCU needing two negative covid tests prior to referral. Melinda is aware that covid patients can remain positive for an extended time post illness. CM/SW will continue to follow and assist with discharge planning. Dariana BRUCEN RN ACM
[2020-01-09 16:51] LABS: Bedside Glucose 265 mg/dL (70-110)
[2020-01-09] MEDS: Insulin Lispro 100 UNIT/ML INSULN.PEN SC ×2 (16:51→21:38)
[2020-01-09] MEDS: Aspirin E.C. 81 MG Tablet PO (21:29)
[2020-01-09] MEDS: Atorvastatin Calcium 40 MG Tablet PO (21:30)
[2020-01-09] MEDS: Mirtazapine 15 MG Tablet PO (21:30)
[2020-01-09 22:25] LABS: Bedside Glucose 314 mg/dL (70-110)
[2020-01-10] VITALS (12 sets, daily range): BP systolic 107–135; BP diastolic 52–71; PULSE 60–71; RESP 18–20; TEMP 35.3–36.3; O2SAT 4–96
[2020-01-10 05:33] LABS: Absolute Lymphocyte Count 0.65 X10^3/uL (0.83-4.51); Absolute Neutrophil Count 5.6 X10^3/uL (2.0-7.7); Hematocrit 35.4 % (40-54); Hemoglobin 11.4 g/dL (13.0-16.5); Lymphocyte # 0.65 X10^3/ul (4.0); Lymphocyte % 9.6 % (19-41); Mean Corp Hgb Conc 32.2 g/dL (32-36); Mean Corpuscular Hgb 30.2 pg (27.0-32.0); Mean Corpuscular Volume 93.9 fL (80-94); Monocyte# 0.47 X10^3/uL; Monocyte% 6.9 % (0-10); NRBC Flagged by Analyzer 0 % (0-5); Neutrophil # 5.62 X10^3/uL (2.7-7.7); Neutrophil % 82.9 % (47-70); Platelet Count 205 K/mm3 (150-450); RBC Distribution Width CV 12.5 % (11.6-14.6); RBC Distribution Width SD 43.3 fl (35.1-43.9); Red Blood Count 3.77 M/mm3 (4.6-6.2); White Blood Count 6.8 K/mm3 (4.4-11.0)
[2020-01-10 05:48] LABS: D-Dimer Quantitative (DVT/PE) 0.65 FEU/ug/m (0.27-0.49)
[2020-01-10] MEDS: Insulin Lispro 100 UNIT/ML INSULN.PEN SC ×4 (06:27→22:09)
[2020-01-10] MEDS: 0.9% Saline Lock 10 ML Syringe IV ×3 (06:28→22:11)
[2020-01-10 07:01] LABS: Bedside Glucose 258 mg/dL (70-110)
--- NOTE | 2020-01-10 07:07 | PCM.PN.HOSP ---
Patient Problems: Active and Suspected Problems (Last Reviewed 01/08/20 @ 19:[address] Robel Kulkarni, DO) COVID-19 (Acute) Encephalopathy, metabolic (Acute) Acute respiratory failure with hypoxia (Acute) Debility (Acute) Herpes zoster (Acute) Subjective: Patient overnight with no acute events except did have all his oxygen off with desaturation to 87% but improved following replacement with continue 4 L nasal cannula usage and no complaints of dyspnea. Patient with improved interaction, visibly more alert and interactive, increased oral intake, lessen coughing and dyspnea. Patient's daughter was contacted and has become more ill with harsh coughing and dyspnea with encouraged continued self close monitoring and presentation to the ED if any concerns with update given about her father. Patient denies fevers, chills, nausea, emesis, abdominal pain, chest pain. Objective: Physical Examination: General: Weak today, alert, oriented to self, place and recent events, able to follow commands, cooperative, seated upright in MS to Covid bed, no acute distress notably improved from day prior. Skin: normal color, turgor, no icterus, cyanosis except occasional staged ecchymoses. HEENT: AT/NC, EOMI, PERRLA, improved MMM. Lungs: Diminished breath sounds, greater bases, normal effort, no rales, ronchi or wheezing. Heart: Regular rate and rhythm; no gallop, rub audible. Abdomen: soft, NTTP, ND, normal BS. Extremities: no cyanosis, clubbing, or edema. Neurological: patient awake, alert, oriented as noted; cognitive function improved, nearing baseline intact; pupils equally reactive to light and accomodation; cranial nerves II-XII grossly normal, moving all 4 extremities, no focal deficits, strength remains severely global decreased. Psychiatric: affect appears improved, interactive, more normal, no acute evidence of depressive or anxiety feelings. Vitals/I&O's: Vital Signs Temp Pulse Resp BP Pulse Ox 96.5 F L 60 20 H 113/68 94 01/10/20 04:13 01/10/20 04:13 01/10/20 04:13 01/10/20 04:13 01/10/20 04:13 Oxygen Flow Rate (L/min) 4 Oxygen Delivery Method Nasal Cannula Weight: 224 lb 15.99 oz Body Mass Index (BMI) 28.8 Finger Stick Blood Glucose 160 Intake and Output for Last 24 Hours 01/08/20 01/09/20 01/10/20 23:59 23:59 23:59 Intake Total 1128 / 1128 250 / 250 Balance 1128 / 1128 250 / 250 Laboratory Results 01/09/20 05:40: Diff Path Review Reviewed 01/09/20 16:33: POC Glucose 265 H 01/09/20 21:38: POC Glucose 314 H 01/10/20 05:22: D-Dimer Quant (PE/DVT) 0.65 H* 01/10/20 05:22: Sodium Pending, Potassium Pending, Chloride Pending, Carbon Dioxide Pending, Anion Gap Pending, BUN Pending, Creatinine Pending, Est GFR (MDRD) Af Amer Pending, Est GFR (MDRD) Non-Af Pending, BUN/Creatinine Ratio Pending, Glucose Pending, Calcium Pending, Ferritin Pending, Total Bilirubin Pending, AST Pending, ALT Pending, Alkaline Phosphatase Pending, C-React Prot Ext Range Pending, Total Protein Pending, Albumin Pending 01/10/20 05:22: Procalcitonin Pending 01/10/20 05:22: WBC 6.8, RBC 3.77 L, Hgb 11.4 L, Hct 35.4 L, MCV 93.9 D, MCH 30.2, MCHC 32.2, RDW Std Deviation 43.3, RDW Coeff of Az 12.5, Plt Count 205, MPV 9.0, Immature Gran % (Auto) 0.600, Neut % (Auto) 82.9 H, Lymph % (Auto) 9.6 L, [place] % (Auto) 6.9, Eos % (Auto) 0.0, Baso % (Auto) 0.0, Absolute Neuts (auto) 5.6, Absolute Lymphs (auto) 0.65 L, Nucleated RBC % 0 01/10/20 06:21: POC Glucose 258 H Current Medications Acetaminophen (Acetaminophen 500 Mg Tablet) 1,000 mg PO Q6H PRN PRN PRN Reason: Pain Score 1-10 Albuterol Sulfate (Albuterol Ih 8.5 Gm (Proair) Inhaler (200 Puffs)) 4 - 8 puff INHALATION Q4H PRN PRN PRN Reason: Dyspnea, wheezing Aspirin (Aspirin E.C. 81 Mg Tablet) 81 mg PO QHS [facility] Last Admin: 01/09/20 21:29 Dose: 81 mg Documented by: Atorvastatin Calcium (Atorvastatin Calcium 40 Mg Tablet) 40 mg PO QHS [facility] Last Admin: 01/09/20 21:30 Dose: 40 mg Documented by: Calamine/Phenol (Menthol/Lanolin/Calamine/Znox 113 Gm Tube) 1 applic TOPICAL BID [facility]; Protocol Last Admin: 01/09/20 21:29 Dose: 1 applic Documented by: Dexamethasone Sodium Phosphate (Dexamethasone 10 Mg/Ml Vial) 6 mg IV DAILY [facility] Stop: 01/18/20 10:01 Last Admin: 01/09/20 09:39 Dose: 6 mg Documented by: Dextrose (Dextrose 50%-Water 25 Gm/50 Ml Disp.Syrin) 0 gm IV X1 PRN; Protocol PRN Reason: Hypoglycemia Docusate Sodium (Docusate Sodium 100 Mg Capsule) 100 mg PO DAILY [facility] Last Admin: 01/09/20 10:09 Dose: 100 mg Documented by: Furosemide (Furosemide 20 Mg Tablet) 20 mg PO DAILY PRN PRN Reason: EDEMA Glucagon (Glucagon 1 Mg/Ml Syringe) 1 mg IM .X1 PRN PRN Reason: Hypoglycemia Haloperidol Lactate (Haloperidol Lactate 5 Mg/Ml Vial) 1 mg IM Q4H PRN PRN PRN Reason: uncontrollable anxiety Hydralazine HCl (Hydralazine 20 Mg/Ml Vial) 10 mg IV Q4H PRN PRN PRN Reason: SBP > 160 Remdesivir 100 mg/ Sodium (Chloride) 250 mls @ 125 mls/hr IV QHS [facility]; Protocol Stop: 01/12/20 23:59 Last Infusion: 01/10/20 02:00 Dose: Infused Documented by: Sodium Chloride () 250 mls @ 15 mls/hr IV .[id number] PRN PRN Reason: Saline Flush Last Infusion: 01/09/20 14:22 Dose: Infused Documented by: Sodium Chloride () 250 mls @ 15 mls/hr IV .[id number] PRN PRN Reason: Additional IVPB Infusion Insulin Human Lispro (Insulin Lispro 100 Unit/Ml Insuln.Pen) 0 unit SC ACHS [facility]; Protocol Last Admin: 01/10/20 06:27 Dose: 3 u Documented by: Lamotrigine (Lamotrigine 150 Mg Tablet) 150 mg PO BID [facility] Last Admin: 01/09/20 21:29 Dose: 150 mg Documented by: Metoprolol Tartrate (Metoprolol Tartrate 25 Mg Tablet) 25 mg PO BID [facility] Last Admin: 01/09/20 21:30 Dose: 25 mg Documented by: Mirtazapine (Mirtazapine 15 Mg Tablet) 15 mg PO QHS [facility] Last Admin: 01/09/20 21:30 Dose: 15 mg Documented by: Multivitamins (Multivitamins,Therapeutic Tablet) 1 tablet PO DAILY [facility] Last Admin: 01/09/20 09:45 Dose: 1 tablet Documented by: Nitroglycerin (Nitroglycerin (Inpatient Use) 0.4 Mg Tab.Subl) 0.4 mg SUBLINGUAL Q5M PRN PRN Reason: Angina Ondansetron HCl (Ondansetron Odt 4 Mg Tablet) 4 mg PO Q8H PRN PRN PRN Reason: NAUSEA Pantoprazole Sodium (Pantoprazole Sodium 40 Mg Tablet) 40 mg PO DAILY [facility] Last Admin: 01/09/20 09:45 Dose: 40 mg Documented by: Polyethylene Glycol (Polyethylene Glycol 3350 17 Gm Packet) 17 gm PO DAILY [facility] Last Admin: 01/09/20 09:45 Dose: 17 gm Documented by: Ranolazine (Ranolazine 500 Mg Tablet) 500 mg PO BID [facility] Last Admin: 01/09/20 21:30 Dose: 500 mg Documented by: Rivaroxaban (Rivaroxaban 20 Mg Tablet) 20 mg PO DAILY [facility] Last Admin: 01/09/20 10:11 Dose: 20 mg Documented by: Sodium Chloride (0.9% Saline Lock 10 Ml Syringe) 10 - 40 ml IV UD PRN PRN Reason: SALINE FLUSH Last Admin: 01/10/20 06:28 Dose: 10 ml Documented by: Tramadol HCl (Tramadol 50 Mg Tablet) 100 mg PO Q4H PRN PRN Reason: Pain Score 4-10 STROKE Vital Signs/Narrative: Vital Signs Temp Pulse Resp BP Pulse Ox 01/10/20 04:13 96.5 F L 60 20 H 113/68 94 01/10/20 04:00 20 H Medical Necessity - Tobacco Use Smoking Status: Never smoker Assessment/Plan All Active Problems (Last Reviewed 01/08/20 @ 19:[address] Robel Kulkarni, DO) COVID-19 (Acute) Encephalopathy, metabolic (Acute) Acute respiratory failure with hypoxia (Acute) Debility (Acute) Herpes zoster (Acute) Pressure ulcer of left buttock, stage 1 (Resolved) Pressure ulcer of right buttock, stage 1 (Resolved) The patient is an 79 y/o M w/ PMHx: ELDER on CPAP q HS, OA, HTN, HLD, CAD s/p PCI, Hx CVA, Alzheimer's dementia, Diabetes mellitus type II, GERD who presents to the [facility] ED on 01/08/20 with history of onset illness 12/29/2019 with fatigue, malaise, fever, body aches, cough and dyspnea with positive Covid testing on 12/29 with family caring for him since however patient with increased work of breathing, accessory muscle usage with outside ED presentation with transfer to [facility] for further care. 1. Acute Dyspnea, Cough with Bilateral Pneumonia secondary to Acute Viral Syndrome, COVID-19: Work-up upon presentation included CBC with WC 4.1, hemoglobin 11.7, platelet 164 with lymphopenia, D-dimer 0.76 but normal once age-adjusted, CMP with glucose 283 otherwise not marked appearing, pro calcitonin less than 0.01. Patient with symptoms consistent with Covid, positive outpatient testing, film at outside facility consistent with Covid pneumonia, transition to Covid unit at [facility], currently maintaining oxygen with wean to 4 L nasal cannula, BiPAP nightly used 01/09/2020, will ascertain if recurrent needs this evening pending oxygenation, treated with Decadron, remdesivir as well as plasma 01/09/2020, maintained on Xarelto regimen, infectious disease and pulmonary medicine following, continue supportive care including q 2 hour turning including prone given no prone bed availability and judicious hydration, closely monitor for worsening status for ARDS and multiorgan failure. PT and OT assessments ongoing with [facility] once precertification obtained. 2. CAD: Patient s/p PCI w/ RCA, LCX, and OM PTCA/SARKIS in April, May of 2014 as well as PTCA/ballooning to OM1 at [facility] in December 2017, continue aspirin, Xarelto, statin therapy, metoprolol, not on ORION inhibitor or ARB with allergy listed. 3. History of prior CVA: We will continue patient home aspirin, Xarelto, statin therapy, hypertensive regimen and diabetic regimen. 4. Diabetes mellitus type II: Hold oral home regimen, ADA diet, accu checks w/ ISS. 5. Hypertension: Continue home regimen including metoprolol, Lasix with hold parameters, PRN hydralazine. 6. Hyperlipidemia: Continue home statin regimen. 7. Alzheimer's dementia without behavioral disturbance history: We will continue patient home Remeron regimen. 8. ELDER: Currently BIPAP q HS given presentation. 9. GERD: Continue home PPI. 10. DVT Prophylaxis: SCDs, continue home xarelto regimen. 11. CODE status: Full Code. Inpatient E&M: 68730 Subs Hosp L2
[2020-01-10 07:40] LABS: AST(SGOT) 40 U/L (15-37); Alanine Aminotransfer ALT/SGPT 42 U/L (16-61); Albumin, Serum 2.9 g/dL (3.2-5.0); Alkaline Phosphatase 64 U/L (45-117); Anion Gap 4 (5-15); BUN 24 mg/dL (7-18); BUN/Creat Ratio 25.1 RATIO (10-20); Chloride 107 mmol/L (98-107); Creatinine, Serum 0.96 mg/dL (0.70-1.30); EST Glomerular Filtration Rate 80 mL/min (>60); Est Glom Filt Rate - Afr Amer 97 mL/min (>60); Estimated Creatinine Clearance 70.16 ml/min; Ferritin 1032 ng/mL (26-388); Glucose 251 mg/dL (74-106); Potassium 4.4 mmol/L (3.5-5.1); Protein, Total 5.9 g/dL (6.4-8.2); Sodium Level 139 mmol/L (136-145)
[2020-01-10 09:07] LABS: Procalcitonin < 0.04 ng/mL (0.00-0.09)
[2020-01-10] MEDS: Docusate Sodium 100 MG Capsule PO (09:54)
[2020-01-10] MEDS: Ranolazine 500 MG Tablet PO ×2 (09:55→22:00)
[2020-01-10] MEDS: Rivaroxaban 20 MG Tablet PO (09:55)
[2020-01-10] MEDS: Multivitamins,Therapeutic Tablet 1 TABLET PO (09:55)
[2020-01-10] MEDS: Pantoprazole Sodium 40 MG Tablet PO (09:55)
[2020-01-10] MEDS: dexAMETHasone 10 MG/ML Vial 6 MG IV (09:55)
[2020-01-10] MEDS: lamoTRIgine 150 MG Tablet PO ×2 (09:55→21:59)
[2020-01-10] MEDS: Metoprolol Tartrate 25 MG Tablet PO ×2 (09:55→22:00)
[2020-01-10] MEDS: Menthol/Lanolin/Calamine/Znox 113 GM Tube 1 APPLIC TOPICAL ×2 (09:56→21:58)
[2020-01-10] MEDS: Polyethylene Glycol 3350 17 GM PACKET PO (09:56)
--- NOTE | 2020-01-10 09:57 | PCM.PN.PUL ---
Patient Problems: Active and Suspected Problems (Last Reviewed 01/08/20 @ 19:[address] Robel Kulkarni, DO) COVID-19 (Acute) Encephalopathy, metabolic (Acute) Acute respiratory failure with hypoxia (Acute) Debility (Acute) Herpes zoster (Acute) Subjective: Patient did okay overnight. This morning, patient remained confused, but states he felt better. Patient was found off of supplemental oxygen saturating 82%, but was not visibly dyspneic. Patient did not report any diarrhea or other complications. No fever has been reported by nursing overnight. - Physical Exam Vitals/I&O's: Vital Signs Temp Pulse Resp BP Pulse Ox 36.2 C L 71 18 135/52 H 94 01/10/20 09:49 01/10/20 09:49 01/10/20 09:49 01/10/20 09:49 01/10/20 09:49 Oxygen Flow Rate (L/min) 4 Oxygen Delivery Method Nasal Cannula Weight: 102.058 kg Body Mass Index (BMI) 28.8 Finger Stick Blood Glucose 160 Intake and Output for Last 24 Hours 01/08/20 01/09/20 01/10/20 23:59 23:59 23:59 Intake Total 1128 / 1128 250 / 250 Balance 1128 / 1128 250 / 250 General: Alert, Cooperative, No apparent distress, Confused, Disoriented, - - No conversational dyspnea. HEENT: Atraumatic, PERRLA, EOMI, Normocephalic, - - No scleral icterus or injection noted Oral: Moist Mucosa, No Gingival or Mucosal Lesions/ Ulcerations Neck: Supple, No JVD, No Nodes, Trachea Midline Lungs: No rhonchi, No wheeze, No rales, Diminished, - - Symmetric expansion. No dullness to percussion. Cardiovascular: Normal S1, Normal S2, No murmurs, Irregular Rate, No rub noted, No Gallop Abdomen: Bowel Sounds Present, Soft, Non Tender, Non-Distended Extremities: No clubbing, No cyanosis, No edema, Capillary Refill Less than 3 Seconds Skin: - - No change from previous Musculoskeletal: No Tenderness to Palpation of Joints or Extremities Lymphatic: No Cervical, Supraclavicular, or Inguinal Adenopathy Neurological: Cranial nerves II-XII grossly intact, Neuro grossly intact, Motor Exam 5/5 strength throughout Psych/Mental Status: Appropriate, Flat Affect Laboratory Results 01/09/20 05:40: Diff Path Review Reviewed 01/09/20 16:33: POC Glucose 265 H 01/09/20 21:38: POC Glucose 314 H 01/10/20 05:22: D-Dimer Quant (PE/DVT) 0.65 H* 01/10/20 05:22: Sodium 139, Potassium 4.4, Chloride 107, Carbon Dioxide 28.0, Anion Gap 4 L, BUN 24 H, Creatinine 0.96, Estim Creat Clear Calc 70.16, Est GFR (MDRD) Af Amer 97, Est GFR (MDRD) Non-Af 80, BUN/Creatinine Ratio 25.1 H, Glucose 251 H, Calcium 8.0 L, Ferritin 1032 H, Total Bilirubin 0.50, AST 40 H, ALT 42, Alkaline Phosphatase 64, C-React Prot Ext Range 51.00 H, Total Protein 5.9 L, Albumin 2.9 L, Globulin 3.0, Albumin/Globulin Ratio 1.0 01/10/20 05:22: Procalcitonin < 0.04 01/10/20 05:22: WBC 6.8, RBC 3.77 L, Hgb 11.4 L, Hct 35.4 L, MCV 93.9 D, MCH 30.2, MCHC 32.2, RDW Std Deviation 43.3, RDW Coeff of Az 12.5, Plt Count 205, MPV 9.0, Immature Gran % (Auto) 0.600, Neut % (Auto) 82.9 H, Lymph % (Auto) 9.6 L, [place] % (Auto) 6.9, Eos % (Auto) 0.0, Baso % (Auto) 0.0, Absolute Neuts (auto) 5.6, Absolute Lymphs (auto) 0.65 L, Nucleated RBC % 0 01/10/20 06:21: POC Glucose 258 H Current Medications Acetaminophen (Acetaminophen 500 Mg Tablet) 1,000 mg PO Q6H PRN PRN PRN Reason: Pain Score 1-10 Albuterol Sulfate (Albuterol Ih 8.5 Gm (Proair) Inhaler (200 Puffs)) 4 - 8 puff INHALATION Q4H PRN PRN PRN Reason: Dyspnea, wheezing Aspirin (Aspirin E.C. 81 Mg Tablet) 81 mg PO QHS [facility] Last Admin: 01/09/20 21:29 Dose: 81 mg Documented by: Atorvastatin Calcium (Atorvastatin Calcium 40 Mg Tablet) 40 mg PO QHS [facility] Last Admin: 01/09/20 21:30 Dose: 40 mg Documented by: Calamine/Phenol (Menthol/Lanolin/Calamine/Znox 113 Gm Tube) 1 applic TOPICAL BID [facility]; Protocol Last Admin: 01/09/20 21:29 Dose: 1 applic Documented by: Dexamethasone Sodium Phosphate (Dexamethasone 10 Mg/Ml Vial) 6 mg IV DAILY [facility] Stop: 01/18/20 10:01 Last Admin: 01/09/20 09:39 Dose: 6 mg Documented by: Dextrose (Dextrose 50%-Water 25 Gm/50 Ml Disp.Syrin) 0 gm IV X1 PRN; Protocol PRN Reason: Hypoglycemia Docusate Sodium (Docusate Sodium 100 Mg Capsule) 100 mg PO DAILY [facility] Last Admin: 01/09/20 10:09 Dose: 100 mg Documented by: Furosemide (Furosemide 20 Mg Tablet) 20 mg PO DAILY PRN PRN Reason: EDEMA Glucagon (Glucagon 1 Mg/Ml Syringe) 1 mg IM .X1 PRN PRN Reason: Hypoglycemia Haloperidol Lactate (Haloperidol Lactate 5 Mg/Ml Vial) 1 mg IM Q4H PRN PRN PRN Reason: uncontrollable anxiety Hydralazine HCl (Hydralazine 20 Mg/Ml Vial) 10 mg IV Q4H PRN PRN PRN Reason: SBP > 160 Remdesivir 100 mg/ Sodium (Chloride) 250 mls @ 125 mls/hr IV QHS [facility]; Protocol Stop: 01/12/20 23:59 Last Infusion: 01/10/20 02:00 Dose: Infused Documented by: Sodium Chloride () 250 mls @ 15 mls/hr IV .[id number] PRN PRN Reason: Saline Flush Last Infusion: 01/09/20 14:22 Dose: Infused Documented by: Sodium Chloride () 250 mls @ 15 mls/hr IV .[id number] PRN PRN Reason: Additional IVPB Infusion Insulin Human Lispro (Insulin Lispro 100 Unit/Ml Insuln.Pen) 0 unit SC ACHS [facility]; Protocol Last Admin: 01/10/20 06:27 Dose: 3 u Documented by: Lamotrigine (Lamotrigine 150 Mg Tablet) 150 mg PO BID [facility] Last Admin: 01/09/20 21:29 Dose: 150 mg Documented by: Metoprolol Tartrate (Metoprolol Tartrate 25 Mg Tablet) 25 mg PO BID [facility] Last Admin: 01/09/20 21:30 Dose: 25 mg Documented by: Mirtazapine (Mirtazapine 15 Mg Tablet) 15 mg PO QHS [facility] Last Admin: 01/09/20 21:30 Dose: 15 mg Documented by: Multivitamins (Multivitamins,Therapeutic Tablet) 1 tablet PO DAILY [facility] Last Admin: 01/09/20 09:45 Dose: 1 tablet Documented by: Nitroglycerin (Nitroglycerin (Inpatient Use) 0.4 Mg Tab.Subl) 0.4 mg SUBLINGUAL Q5M PRN PRN Reason: Angina Ondansetron HCl (Ondansetron Odt 4 Mg Tablet) 4 mg PO Q8H PRN PRN PRN Reason: NAUSEA Pantoprazole Sodium (Pantoprazole Sodium 40 Mg Tablet) 40 mg PO DAILY [facility] Last Admin: 01/09/20 09:45 Dose: 40 mg Documented by: Polyethylene Glycol (Polyethylene Glycol 3350 17 Gm Packet) 17 gm PO DAILY [facility] Last Admin: 01/09/20 09:45 Dose: 17 gm Documented by: Ranolazine (Ranolazine 500 Mg Tablet) 500 mg PO BID [facility] Last Admin: 01/09/20 21:30 Dose: 500 mg Documented by: Rivaroxaban (Rivaroxaban 20 Mg Tablet) 20 mg PO DAILY [facility] Last Admin: 01/09/20 10:11 Dose: 20 mg Documented by: Sodium Chloride (0.9% Saline Lock 10 Ml Syringe) 10 - 40 ml IV UD PRN PRN Reason: SALINE FLUSH Last Admin: 01/10/20 06:28 Dose: 10 ml Documented by: Tramadol HCl (Tramadol 50 Mg Tablet) 100 mg PO Q4H PRN PRN Reason: Pain Score 4-10 Medical Necessity - Tobacco Use Smoking Status: Never smoker Assessment/Plan All Active Problems (Last Reviewed 01/08/20 @ 19:[address] Robel Kulkarni, DO) COVID-19 (Acute) Encephalopathy, metabolic (Acute) Acute respiratory failure with hypoxia (Acute) Debility (Acute) Herpes zoster (Acute) Pressure ulcer of left buttock, stage 1 (Resolved) Pressure ulcer of right buttock, stage 1 (Resolved) RECOMMENDATIONS: 1. Initiate convalescent serum, remdesivir, Decadron and anticoagulation 2. Monitor oxygen status closely. Wean oxygen as tolerated during the day 3. Continue BiPAP at night 4. Follow delirium protocol 5. Diuretic challenge IMPRESSIONS: 1. Pneumonia secondary to COVID-19 Family is wishing to have aggressive measures. Patient would be a candidate for convalescent serum (02/27), remdesivir (04/03) and Decadron (04/08). Patient should continue with his baseline rivaroxaban as this should provide plenty of anticoagulation to avoid thrombotic risk. Patient is not currently on antibiotics at this time, which I believe is appropriate. We will attempt to challenge with diuretics. Continue to follow clinically. 2. Metabolic encephalopathy with baseline dementia Patient reportedly has dementia at baseline, but may be worse off at this time. Recommend following delirium protocol and avoid benzodiazepines. Patient does have Haldol as needed. We will need to watch closely to make sure her oxygen stays in place. 3. Chronic A. fib/diabetes mellitus/advanced age Complicates care, management, recovery and prognosis. We will need to watch patient's blood sugars closely given baseline diabetes and concomitant steroid therapy. No significant hypertension has been noted. Inpatient E&M: 54388 Subs Hosp L2
[2020-01-10] MEDS: Furosemide 20 MG/2 ML VIAL IV (10:10)
[2020-01-10 11:25] LABS: Bedside Glucose 233 mg/dL (70-110)
--- NOTE | 2020-01-10 13:21 | CASEMGMT ---
Social Work Phone call with pt dgt Melinda to discuss discharge plan. Melinda aware that pt would need two negative covid tests for admission to TCU and this is not likely. DARREN reviewed with Melinda list of facilities that are accepting Covid positive pt. Melinda stating that they are considering taking pt home at time of discharge with 24 hour care. Melinda will reevaluate how pt is doing on Monday and will decide if they can take pt home or if pt will need placed at SNF. DARREN to followup on Monday. FILI [place]
--- NOTE | 2020-01-10 15:31 | PCM.PN.ID ---
Patient Problems: Active and Suspected Problems (Last Reviewed 01/08/20 @ 19:[address] Robel Kulkarni, DO) COVID-19 (Acute) Encephalopathy, metabolic (Acute) Acute respiratory failure with hypoxia (Acute) Debility (Acute) Herpes zoster (Acute) Subjective: Feeling better, awake, able to answer questions. - Physical Exam Vitals/I&O's: Vital Signs Temp Pulse Resp BP Pulse Ox 97.1 F L 71 18 135/52 H 94 01/10/20 09:49 01/10/20 09:55 01/10/20 09:49 01/10/20 09:49 01/10/20 09:49 Oxygen Flow Rate (L/min) 4 Oxygen Delivery Method Nasal Cannula Weight: 102.058 kg Body Mass Index (BMI) 28.8 Finger Stick Blood Glucose 160 Intake and Output for Last 24 Hours 01/08/20 01/09/20 01/10/20 23:59 23:59 23:59 Intake Total 1128 / 1128 250 / 250 Balance 1128 / 1128 250 / 250 General: Cooperative, No apparent distress, - - oriented x1 Lungs: Clear to auscultation, Diminished Cardiovascular: Regular rate, Regular Rhythm Abdomen: Soft, Non Tender, Non-Distended Skin: No rashes Laboratory Results 01/09/20 16:33: POC Glucose 265 H 01/09/20 21:38: POC Glucose 314 H 01/10/20 05:22: D-Dimer Quant (PE/DVT) 0.65 H* 01/10/20 05:22: Sodium 139, Potassium 4.4, Chloride 107, Carbon Dioxide 28.0, Anion Gap 4 L, BUN 24 H, Creatinine 0.96, Estim Creat Clear Calc 70.16, Est GFR (MDRD) Af Amer 97, Est GFR (MDRD) Non-Af 80, BUN/Creatinine Ratio 25.1 H, Glucose 251 H, Calcium 8.0 L, Ferritin 1032 H, Total Bilirubin 0.50, AST 40 H, ALT 42, Alkaline Phosphatase 64, C-React Prot Ext Range 51.00 H, Total Protein 5.9 L, Albumin 2.9 L, Globulin 3.0, Albumin/Globulin Ratio 1.0 01/10/20 05:22: Procalcitonin < 0.04 01/10/20 05:22: WBC 6.8, RBC 3.77 L, Hgb 11.4 L, Hct 35.4 L, MCV 93.9 D, MCH 30.2, MCHC 32.2, RDW Std Deviation 43.3, RDW Coeff of Az 12.5, Plt Count 205, MPV 9.0, Immature Gran % (Auto) 0.600, Neut % (Auto) 82.9 H, Lymph % (Auto) 9.6 L, [place] % (Auto) 6.9, Eos % (Auto) 0.0, Baso % (Auto) 0.0, Absolute Neuts (auto) 5.6, Absolute Lymphs (auto) 0.65 L, Nucleated RBC % 0 01/10/20 06:21: POC Glucose 258 H 01/10/20 11:07: POC Glucose 233 H Current Medications Acetaminophen (Acetaminophen 500 Mg Tablet) 1,000 mg PO Q6H PRN PRN PRN Reason: Pain Score 1-10 Albuterol Sulfate (Albuterol Ih 8.5 Gm (Proair) Inhaler (200 Puffs)) 4 - 8 puff INHALATION Q4H PRN PRN PRN Reason: Dyspnea, wheezing Aspirin (Aspirin E.C. 81 Mg Tablet) 81 mg PO QHS [facility] Last Admin: 01/09/20 21:29 Dose: 81 mg Documented by: Atorvastatin Calcium (Atorvastatin Calcium 40 Mg Tablet) 40 mg PO QHS [facility] Last Admin: 01/09/20 21:30 Dose: 40 mg Documented by: Calamine/Phenol (Menthol/Lanolin/Calamine/Znox 113 Gm Tube) 1 applic TOPICAL BID [facility]; Protocol Last Admin: 01/10/20 09:56 Dose: 1 applic Documented by: Dexamethasone Sodium Phosphate (Dexamethasone 10 Mg/Ml Vial) 6 mg IV DAILY [facility] Stop: 01/18/20 10:01 Last Admin: 01/10/20 09:55 Dose: 6 mg Documented by: Dextrose (Dextrose 50%-Water 25 Gm/50 Ml Disp.Syrin) 0 gm IV X1 PRN; Protocol PRN Reason: Hypoglycemia Docusate Sodium (Docusate Sodium 100 Mg Capsule) 100 mg PO DAILY [facility] Last Admin: 01/10/20 09:54 Dose: 100 mg Documented by: Glucagon (Glucagon 1 Mg/Ml Syringe) 1 mg IM .X1 PRN PRN Reason: Hypoglycemia Haloperidol Lactate (Haloperidol Lactate 5 Mg/Ml Vial) 1 mg IM Q4H PRN PRN PRN Reason: uncontrollable anxiety Hydralazine HCl (Hydralazine 20 Mg/Ml Vial) 10 mg IV Q4H PRN PRN PRN Reason: SBP > 160 Remdesivir 100 mg/ Sodium (Chloride) 250 mls @ 125 mls/hr IV QHS [facility]; Protocol Stop: 01/12/20 23:59 Last Infusion: 01/10/20 02:00 Dose: Infused Documented by: Sodium Chloride () 250 mls @ 15 mls/hr IV .[id number] PRN PRN Reason: Saline Flush Last Infusion: 01/09/20 14:22 Dose: Infused Documented by: Sodium Chloride () 250 mls @ 15 mls/hr IV .[id number] PRN PRN Reason: Additional IVPB Infusion Insulin Human Lispro (Insulin Lispro 100 Unit/Ml Insuln.Pen) 0 unit SC ACHS [facility]; Protocol Last Admin: 01/10/20 11:20 Dose: 3 u Documented by: Lamotrigine (Lamotrigine 150 Mg Tablet) 150 mg PO BID [facility] Last Admin: 01/10/20 09:55 Dose: 150 mg Documented by: Metoprolol Tartrate (Metoprolol Tartrate 25 Mg Tablet) 25 mg PO BID [facility] Last Admin: 01/10/20 09:55 Dose: 25 mg Documented by: Mirtazapine (Mirtazapine 15 Mg Tablet) 15 mg PO QHS [facility] Last Admin: 01/09/20 21:30 Dose: 15 mg Documented by: Multivitamins (Multivitamins,Therapeutic Tablet) 1 tablet PO DAILY [facility] Last Admin: 01/10/20 09:55 Dose: 1 tablet Documented by: Nitroglycerin (Nitroglycerin (Inpatient Use) 0.4 Mg Tab.Subl) 0.4 mg SUBLINGUAL Q5M PRN PRN Reason: Angina Ondansetron HCl (Ondansetron Odt 4 Mg Tablet) 4 mg PO Q8H PRN PRN PRN Reason: NAUSEA Pantoprazole Sodium (Pantoprazole Sodium 40 Mg Tablet) 40 mg PO DAILY [facility] Last Admin: 01/10/20 09:55 Dose: 40 mg Documented by: Polyethylene Glycol (Polyethylene Glycol 3350 17 Gm Packet) 17 gm PO DAILY [facility] Last Admin: 11/13/20 09:56 Dose: 17 gm Documented by: Ranolazine (Ranolazine 500 Mg Tablet) 500 mg PO BID [facility] Last Admin: 01/10/20 09:55 Dose: 500 mg Documented by: Rivaroxaban (Rivaroxaban 20 Mg Tablet) 20 mg PO DAILY [facility] Last Admin: 01/10/20 09:55 Dose: 20 mg Documented by: Sodium Chloride (0.9% Saline Lock 10 Ml Syringe) 10 - 40 ml IV UD PRN PRN Reason: SALINE FLUSH Last Admin: 01/10/20 10:11 Dose: 20 ml Documented by: Tramadol HCl (Tramadol 50 Mg Tablet) 100 mg PO Q4H PRN PRN Reason: Pain Score 4-10 Medical Necessity - Tobacco Use Smoking Status: Never smoker Route of nutrition/ use of supplements: [] Nutritional Intake: [] IV Site: [] Ashley Catheter: [] - Assessment/Plan Antibiotics: [] Assessment/Plan: [] Active and Suspected Problems (Last Reviewed 01/08/20 @ 19:[address] Robel Kulkarni, DO) COVID-19 (Acute) Encephalopathy, metabolic (Acute) Acute respiratory failure with hypoxia (Acute) Debility (Acute) Herpes zoster (Acute) Sx started 12/29/19, covid with encephalopathy. On dex, remdesivir, xarelto. Got plasma 01/09/20. Much improved today, now answering questions, feeling better. No fever, on 4L. Will follow
[2020-01-10 16:40] LABS: Bedside Glucose 287 mg/dL (70-110)
[2020-01-10] MEDS: Atorvastatin Calcium 40 MG Tablet PO (21:59)
[2020-01-10] MEDS: Aspirin E.C. 81 MG Tablet PO (21:59)
[2020-01-10] MEDS: Mirtazapine 15 MG Tablet PO (22:00)
--- NOTE | 2020-01-10 22:25 | CPS ---
Pt refused BiPAP for tonight
[2020-01-10 22:31] LABS: Bedside Glucose 319 mg/dL (70-110)
[2020-01-11] VITALS (11 sets, daily range): BP systolic 100–153; BP diastolic 52–92; PULSE 80–84; RESP 12–18; TEMP 35.6–36.7; O2SAT 92–96
[2020-01-11] MEDS: Insulin Lispro 100 UNIT/ML INSULN.PEN SC ×4 (06:45→21:21)
[2020-01-11] MEDS: 0.9% Saline Lock 10 ML Syringe IV ×2 (06:47→09:08)
--- NOTE | 2020-01-11 07:23 | PCM.PN.HOSP ---
Patient Problems: Active and Suspected Problems (Last Reviewed 01/08/20 @ 19:[address] Robel Kulkarni, DO) COVID-19 (Acute) Encephalopathy, metabolic (Acute) Acute respiratory failure with hypoxia (Acute) Debility (Acute) Herpes zoster (Acute) Subjective: Patient with no acute events overnight per self and per nursing report however this morning patient is more fatigued and less interactive than day prior. He does awaken and is able to have discussions but notes he is feeling more weak than day prior. He denies any significant dyspnea or marked cough at this time. Patient denies fevers, chills, nausea, emesis, abdominal pain, chest pain. Objective: Physical Examination: General: More fatigued, alert with stimuli, oriented to self, place and recent events, able to follow commands, cooperative, laying in the Covid MS bed, no acute distress. Skin: normal color, turgor, no icterus, cyanosis except occasional staged ecchymoses. HEENT: AT/NC, EOMI, PERRLA, mildly dry MM. Lungs: Diminished breath sounds, greater bases, normal effort, no rales, ronchi or wheezing. Heart: Regular rate and rhythm; no gallop, rub audible. Abdomen: soft, NTTP, ND, normal BS. Extremities: no cyanosis, clubbing, or edema. Neurological: patient awake, alert, oriented as noted; cognitive function mildly decreased from day prior, underlying baseline dementia; pupils equally reactive to light and accomodation; cranial nerves II-XII grossly normal, moving all 4 extremities, no focal deficits, strength remains severely global decreased. Psychiatric: affect appears more fatigued, flat, less interactive, no acute evidence of depressive or anxiety feelings. Vitals/I&O's: Vital Signs Temp Pulse Resp BP Pulse Ox 96.1 F L 84 18 132/92 H 94 01/11/20 05:06 01/11/20 05:06 01/11/20 05:06 01/11/20 05:06 01/11/20 05:06 Oxygen Flow Rate (L/min) 2 Oxygen Delivery Method Nasal Cannula Weight: 224 lb 15.99 oz Body Mass Index (BMI) 28.8 Finger Stick Blood Glucose 160 Intake and Output for Last 24 Hours 01/09/20 01/10/20 01/11/20 23:59 23:59 23:59 Intake Total 1128 / 1128 350 / 350 250 / 250 Balance 1128 / 1128 350 / 350 250 / 250 Laboratory Results 01/10/20 05:22: Sodium 139, Potassium 4.4, Chloride 107, Carbon Dioxide 28.0, Anion Gap 4 L, BUN 24 H, Creatinine 0.96, Estim Creat Clear Calc 70.16, Est GFR (MDRD) Af Amer 97, Est GFR (MDRD) Non-Af 80, BUN/Creatinine Ratio 25.1 H, Glucose 251 H, Calcium 8.0 L, Ferritin 1032 H, Total Bilirubin 0.50, AST 40 H, ALT 42, Alkaline Phosphatase 64, C-React Prot Ext Range 51.00 H, Total Protein 5.9 L, Albumin 2.9 L, Globulin 3.0, Albumin/Globulin Ratio 1.0 01/10/20 05:22: Procalcitonin < 0.04 01/10/20 11:07: POC Glucose 233 H 01/10/20 16:23: POC Glucose 287 H 01/10/20 21:58: POC Glucose 319 H Current Medications Acetaminophen (Acetaminophen 500 Mg Tablet) 1,000 mg PO Q6H PRN PRN PRN Reason: Pain Score 1-10 Albuterol Sulfate (Albuterol Ih 8.5 Gm (Proair) Inhaler (200 Puffs)) 4 - 8 puff INHALATION Q4H PRN PRN PRN Reason: Dyspnea, wheezing Aspirin (Aspirin E.C. 81 Mg Tablet) 81 mg PO QHS [facility] Last Admin: 01/10/20 21:59 Dose: 81 mg Documented by: Atorvastatin Calcium (Atorvastatin Calcium 40 Mg Tablet) 40 mg PO QHS [facility] Last Admin: 01/10/20 21:59 Dose: 40 mg Documented by: Calamine/Phenol (Menthol/Lanolin/Calamine/Znox 113 Gm Tube) 1 applic TOPICAL BID [facility]; Protocol Last Admin: 01/10/20 21:58 Dose: 1 applic Documented by: Dexamethasone Sodium Phosphate (Dexamethasone 10 Mg/Ml Vial) 6 mg IV DAILY [facility] Stop: 01/18/20 10:01 Last Admin: 01/10/20 09:55 Dose: 6 mg Documented by: Dextrose (Dextrose 50%-Water 25 Gm/50 Ml Disp.Syrin) 0 gm IV X1 PRN; Protocol PRN Reason: Hypoglycemia Docusate Sodium (Docusate Sodium 100 Mg Capsule) 100 mg PO DAILY [facility] Last Admin: 01/10/20 09:54 Dose: 100 mg Documented by: Glucagon (Glucagon 1 Mg/Ml Syringe) 1 mg IM .X1 PRN PRN Reason: Hypoglycemia Haloperidol Lactate (Haloperidol Lactate 5 Mg/Ml Vial) 1 mg IM Q4H PRN PRN PRN Reason: uncontrollable anxiety Hydralazine HCl (Hydralazine 20 Mg/Ml Vial) 10 mg IV Q4H PRN PRN PRN Reason: SBP > 160 Remdesivir 100 mg/ Sodium (Chloride) 250 mls @ 125 mls/hr IV QHS [facility]; Protocol Stop: 01/12/20 23:59 Last Infusion: 01/11/20 00:05 Dose: Infused Documented by: Sodium Chloride () 250 mls @ 15 mls/hr IV .[id number] PRN PRN Reason: Saline Flush Last Infusion: 01/09/20 14:22 Dose: Infused Documented by: Sodium Chloride () 250 mls @ 15 mls/hr IV .[id number] PRN PRN Reason: Additional IVPB Infusion Insulin Human Lispro (Insulin Lispro 100 Unit/Ml Insuln.Pen) 0 unit SC [facility]; Protocol Last Admin: 01/11/20 06:45 Dose: 3 u Documented by: Lamotrigine (Lamotrigine 150 Mg Tablet) 150 mg PO BID [facility] Last Admin: 01/10/20 21:59 Dose: 150 mg Documented by: Metoprolol Tartrate (Metoprolol Tartrate 25 Mg Tablet) 25 mg PO BID [facility] Last Admin: 01/10/20 22:00 Dose: 25 mg Documented by: Mirtazapine (Mirtazapine 15 Mg Tablet) 15 mg PO QHS [facility] Last Admin: 01/10/20 22:00 Dose: 15 mg Documented by: Multivitamins (Multivitamins,Therapeutic Tablet) 1 tablet PO DAILY [facility] Last Admin: 01/10/20 09:55 Dose: 1 tablet Documented by: Nitroglycerin (Nitroglycerin (Inpatient Use) 0.4 Mg Tab.Subl) 0.4 mg SUBLINGUAL Q5M PRN PRN Reason: Angina Ondansetron HCl (Ondansetron Odt 4 Mg Tablet) 4 mg PO Q8H PRN PRN PRN Reason: NAUSEA Pantoprazole Sodium (Pantoprazole Sodium 40 Mg Tablet) 40 mg PO DAILY [facility] Last Admin: 01/10/20 09:55 Dose: 40 mg Documented by: Polyethylene Glycol (Polyethylene Glycol 3350 17 Gm Packet) 17 gm PO DAILY [facility] Last Admin: 01/10/20 09:56 Dose: 17 gm Documented by: Ranolazine (Ranolazine 500 Mg Tablet) 500 mg PO BID [facility] Last Admin: 01/10/20 22:00 Dose: 500 mg Documented by: Rivaroxaban (Rivaroxaban 20 Mg Tablet) 20 mg PO DAILY [facility] Last Admin: 01/10/20 09:55 Dose: 20 mg Documented by: Sodium Chloride (0.9% Saline Lock 10 Ml Syringe) 10 - 40 ml IV UD PRN PRN Reason: SALINE FLUSH Last Admin: 01/11/20 06:47 Dose: 10 ml Documented by: Tramadol HCl (Tramadol 50 Mg Tablet) 100 mg PO Q4H PRN PRN Reason: Pain Score 4-10 STROKE Vital Signs/Narrative: Vital Signs Temp Pulse Resp BP Pulse Ox 01/11/20 05:06 96.1 F L 84 18 132/92 H 94 Medical Necessity - Tobacco Use Smoking Status: Never smoker Assessment/Plan All Active Problems (Last Reviewed 01/08/20 @ 19:[address] Robel Kulkarni, DO) COVID-19 (Acute) Encephalopathy, metabolic (Acute) Acute respiratory failure with hypoxia (Acute) Debility (Acute) Herpes zoster (Acute) Pressure ulcer of left buttock, stage 1 (Resolved) Pressure ulcer of right buttock, stage 1 (Resolved) The patient is an 79 y/o M w/ PMHx: ELDER on CPAP q HS, OA, HTN, HLD, CAD s/p PCI, Hx CVA, Alzheimer's dementia, Diabetes mellitus type II, GERD who presents to the [facility] ED on 01/08/20 with history of onset illness 12/29/2019 with fatigue, malaise, fever, body aches, cough and dyspnea with positive Covid testing on 12/29 with family caring for him since however patient with increased work of breathing, accessory muscle usage with outside ED presentation with transfer to [facility] for further care. 1. Acute Hypoxic Respiratory Failure secondary to Bilateral Pneumonia secondary to Acute Viral Syndrome, COVID-19: Work-up upon presentation included CBC with WC 4.1, hemoglobin 11.7, platelet 164 with lymphopenia, D-dimer 0.76 but normal once age-adjusted, CMP with glucose 283 otherwise not marked appearing, pro calcitonin less than 0.01. Patient with symptoms consistent with Covid, positive outpatient testing, film at outside facility consistent with Covid pneumonia, transition to Covid unit at [facility], currently maintaining oxygen with wean to 4 L nasal cannula, BiPAP nightly used 01/09/2020, continue Decadron regimen, received regimen of remdesivir as well as plasma 01/09/2020, maintained on Xarelto regimen, infectious disease and pulmonary medicine following, continue supportive care including q 2 hour turning including prone given no prone bed availability and judicious hydration, closely monitor for worsening status for ARDS and multiorgan failure. Plan usp facility placement at facility excepting Covid positive patients per discussion with family once clinically appropriate. 2. CAD: Patient s/p PCI w/ RCA, LCX, and OM PTCA/SARKIS in April, May of 2014 as well as PTCA/ballooning to OM1 at [facility] in December 2017, continue aspirin, Xarelto, statin therapy, metoprolol, not on ORION inhibitor or ARB with allergy listed. 3. History of prior CVA: We will continue patient home aspirin, Xarelto, statin therapy, hypertensive regimen and diabetic regimen. 4. Diabetes mellitus type II: Hold oral home regimen, ADA diet, accu checks w/ ISS. 5. Hypertension: Continue home regimen including metoprolol, Lasix with hold parameters, PRN hydralazine. 6. Hyperlipidemia: Continue home statin regimen. 7. Alzheimer's dementia without behavioral disturbance history: We will continue patient home Remeron regimen. 8. ELDER: Currently BIPAP q HS given presentation. 9. GERD: Continue home PPI. 10. DVT Prophylaxis: SCDs, continue home xarelto regimen. 11. CODE status: Full Code. Inpatient E&M: 53035 Subs Hosp L2
[2020-01-11 08:56] LABS: Bedside Glucose 245 mg/dL (70-110)
[2020-01-11] MEDS: Polyethylene Glycol 3350 17 GM PACKET PO (09:02)
[2020-01-11] MEDS: Metoprolol Tartrate 25 MG Tablet PO ×2 (09:04→21:11)
[2020-01-11] MEDS: lamoTRIgine 150 MG Tablet PO ×2 (09:04→21:11)
[2020-01-11] MEDS: dexAMETHasone 10 MG/ML Vial 6 MG IV (09:04)
[2020-01-11] MEDS: Docusate Sodium 100 MG Capsule PO (09:04)
[2020-01-11] MEDS: Multivitamins,Therapeutic Tablet 1 TABLET PO (09:05)
[2020-01-11] MEDS: Ranolazine 500 MG Tablet PO ×2 (09:05→21:11)
[2020-01-11] MEDS: Pantoprazole Sodium 40 MG Tablet PO (09:05)
[2020-01-11] MEDS: Rivaroxaban 20 MG Tablet PO (09:06)
[2020-01-11] MEDS: Menthol/Lanolin/Calamine/Znox 113 GM Tube 1 APPLIC TOPICAL ×2 (09:10→21:11)
[2020-01-11 10:39] LABS: Absolute Lymphocyte Count 0.87 X10^3/uL (0.83-4.51); Absolute Neutrophil Count 4.3 X10^3/uL (2.0-7.7); Basophil# 0.01 X10^3/uL; Basophil% 0.2 % (0-1); Eosinophil# 0.01 X10^3/uL; Eosinophils% 0.2 % (0-5); Hematocrit 37.3 % (40-54); Hemoglobin 12.1 g/dL (13.0-16.5); Lymphocyte # 0.87 X10^3/ul (4.0); Lymphocyte % 15.1 % (19-41); Mean Corp Hgb Conc 32.4 g/dL (32-36); Mean Corpuscular Hgb 30.2 pg (27.0-32.0); Monocyte% 8.7 % (0-10); NRBC Flagged by Analyzer 0 % (0-5); Neutrophil # 4.33 X10^3/uL (2.7-7.7); Neutrophil % 75.1 % (47-70); Platelet Count 269 K/mm3 (150-450); RBC Distribution Width CV 12.4 % (11.6-14.6); RBC Distribution Width SD 42.5 fl (35.1-43.9); Red Blood Count 4.01 M/mm3 (4.6-6.2); White Blood Count 5.8 K/mm3 (4.4-11.0)
--- NOTE | 2020-01-11 10:58 | PN_ITS ---
Patient Problems: Active and Suspected Problems (Last Reviewed 01/08/20 @ 19:[address] Robel Kulkarni, DO) COVID-19 (Acute) Encephalopathy, metabolic (Acute) Acute respiratory failure with hypoxia (Acute) Debility (Acute) Herpes zoster (Acute) Subjective: Patient did okay overnight. Patient remains pleasantly confused and has no c omplaints at this time. Oxygen was in place. - Physical Exam Vitals/I&O's: Vital Signs Temp Pulse Resp BP Pulse Ox 36.2 C L 80 18 113/91 H 95 01/11/20 09:25 01/11/20 09:25 01/11/20 09:25 01/11/20 09:25 01/11/20 09:25 Oxygen Flow Rate (L/min) 2 Oxygen Delivery Method Nasal Cannula Weight: 102.058 kg Body Mass Index (BMI) 28.8 Finger Stick Blood Glucose 160 Intake and Output for Last 24 Hours 01/09/20 01/10/20 01/11/20 23:59 23:59 23:59 Intake Total 1128 / 1128 350 / 350 250 / 250 Balance 1128 / 1128 350 / 350 250 / 250 General: Alert, No apparent distress, Confused, Disoriented, - - No conversational dyspnea. More interactive and appropriate compared to previous HEENT: Atraumatic, PERRLA, EOMI, Normocephalic, - - No scleral icterus or injection noted Oral: Moist Mucosa, No Gingival or Mucosal Lesions/ Ulcerations Neck: Supple, No JVD, No Nodes, Trachea Midline Lungs: No rhonchi, No wheeze, No rales, Diminished, - - Symmetric expansion. No dullness to percussion Cardiovascular: Normal S1, Normal S2, No murmurs, Irregular Rate, No rub noted, No Gallop Abdomen: Bowel Sounds Present, Soft, Non Tender, Non-Distended Extremities: No clubbing, No cyanosis, No edema, Capillary Refill Less than 3 Seconds Skin: No rashes, No breakdown Musculoskeletal: No Tenderness to Palpation of Joints or Extremities Lymphatic: No Cervical, Supraclavicular, or Inguinal Adenopathy Neurological: Cranial nerves II-XII grossly intact, Neuro grossly intact Psych/Mental Status: Appropriate, Flat Affect Laboratory Results 01/10/20 11:07: POC Glucose 233 H 01/10/20 16:23: POC Glucose 287 H 01/10/20 21:58: POC Glucose 319 H 01/11/20 06:41: POC Glucose 245 H 01/11/20 08:23: WBC 5.8, RBC 4.01 L, Hgb 12.1 L, Hct 37.3 L, MCV 93.0, MCH 30.2, MCHC 32.4, RDW Std Deviation 42.5, RDW Coeff of Az 12.4, Plt Count 269, MPV 9.0, Immature Gran % (Auto) 0.700, Neut % (Auto) 75.1 H, Lymph % (Auto) 15.1 L, [place] % (Auto) 8.7, Eos % (Auto) 0.2, Baso % (Auto) 0.2, Absolute Neuts (auto) 4.3, Absolute Lymphs (auto) 0.87, Nucleated RBC % 0 01/11/20 08:23: Sodium Pending, Potassium Pending, Chloride Pending, Carbon Dioxide Pending, Anion Gap Pending, BUN Pending, Creatinine Pending, Est GFR (MDRD) Af Amer Pending, Est GFR (MDRD) Non-Af Pending, BUN/Creatinine Ratio Pending, Glucose Pending, Calcium Pending, Total Bilirubin Pending, AST Pending, ALT Pending, Alkaline Phosphatase Pending, Total Protein Pending, Albumin Pending Current Medications Acetaminophen (Acetaminophen 500 Mg Tablet) 1,000 mg PO Q6H PRN PRN PRN Reason: Pain Score 1-10 Albuterol Sulfate (Albuterol Ih 8.5 Gm (Proair) Inhaler (200 Puffs)) 4 - 8 puff INHALATION Q4H PRN PRN PRN Reason: Dyspnea, wheezing Aspirin (Aspirin E.C. 81 Mg Tablet) 81 mg PO QHS [facility] Last Admin: 01/10/20 21:59 Dose: 81 mg Documented by: Atorvastatin Calcium (Atorvastatin Calcium 40 Mg Tablet) 40 mg PO QHS [facility] Last Admin: 01/10/20 21:59 Dose: 40 mg Documented by: Calamine/Phenol (Menthol/Lanolin/Calamine/Znox 113 Gm Tube) 1 applic TOPICAL BID [facility]; Protocol Last Admin: 01/11/20 09:10 Dose: 1 applic Documented by: Dexamethasone Sodium Phosphate (Dexamethasone 10 Mg/Ml Vial) 6 mg IV DAILY [facility] Stop: 01/18/20 10:01 Last Admin: 01/11/20 09:04 Dose: 6 mg Documented by: Dextrose (Dextrose 50%-Water 25 Gm/50 Ml Disp.Syrin) 0 gm IV X1 PRN; Protocol PRN Reason: Hypoglycemia Docusate Sodium (Docusate Sodium 100 Mg Capsule) 100 mg PO DAILY [facility] Last Admin: 01/11/20 09:04 Dose: 100 mg Documented by: Glucagon (Glucagon 1 Mg/Ml Syringe) 1 mg IM .X1 PRN PRN Reason: Hypoglycemia Haloperidol Lactate (Haloperidol Lactate 5 Mg/Ml Vial) 1 mg IM Q4H PRN PRN PRN Reason: uncontrollable anxiety Hydralazine HCl (Hydralazine 20 Mg/Ml Vial) 10 mg IV Q4H PRN PRN PRN Reason: SBP > 160 Remdesivir 100 mg/ Sodium (Chloride) 250 mls @ 125 mls/hr IV QHS [facility]; Protocol Stop: 01/12/20 23:59 Last Infusion: 01/11/20 00:05 Dose: Infused Documented by: Sodium Chloride () 250 mls @ 15 mls/hr IV .[id number] PRN PRN Reason: Saline Flush Last Infusion: 01/09/20 14:22 Dose: Infused Documented by: Sodium Chloride () 250 mls @ 15 mls/hr IV .[id number] PRN PRN Reason: Additional IVPB Infusion Insulin Human Lispro (Insulin Lispro 100 Unit/Ml Insuln.Pen) 0 unit SC ACHS [facility]; Protocol Last Admin: 01/11/20 06:45 Dose: 3 u Documented by: Lamotrigine (Lamotrigine 150 Mg Tablet) 150 mg PO BID [facility] Last Admin: 01/11/20 09:04 Dose: 150 mg Documented by: Metoprolol Tartrate (Metoprolol Tartrate 25 Mg Tablet) 25 mg PO BID [facility] Last Admin: 01/11/20 09:04 Dose: 25 mg Documented by: Mirtazapine (Mirtazapine 15 Mg Tablet) 15 mg PO QHS [facility] Last Admin: 01/10/20 22:00 Dose: 15 mg Documented by: Multivitamins (Multivitamins,Therapeutic Tablet) 1 tablet PO DAILY [facility] Last Admin: 01/11/20 09:05 Dose: 1 tablet Documented by: Nitroglycerin (Nitroglycerin (Inpatient Use) 0.4 Mg Tab.Subl) 0.4 mg SUBLINGUAL Q5M PRN PRN Reason: Angina Ondansetron HCl (Ondansetron Odt 4 Mg Tablet) 4 mg PO Q8H PRN PRN PRN Reason: NAUSEA Pantoprazole Sodium (Pantoprazole Sodium 40 Mg Tablet) 40 mg PO DAILY [facility] Last Admin: 01/11/20 09:05 Dose: 40 mg Documented by: Polyethylene Glycol (Polyethylene Glycol 3350 17 Gm Packet) 17 gm PO DAILY [facility] Last Admin: 01/11/20 09:02 Dose: 17 gm Documented by: Ranolazine (Ranolazine 500 Mg Tablet) 500 mg PO BID [facility] Last Admin: 01/11/20 09:05 Dose: 500 mg Documented by: Rivaroxaban (Rivaroxaban 20 Mg Tablet) 20 mg PO DAILY [facility] Last Admin: 01/11/20 09:06 Dose: 20 mg Documented by: Sodium Chloride (0.9% Saline Lock 10 Ml Syringe) 10 - 40 ml IV UD PRN PRN Reason: SALINE FLUSH Last Admin: 01/11/20 09:08 Dose: 10 ml Documented by: Tramadol HCl (Tramadol 50 Mg Tablet) 100 mg PO Q4H PRN PRN Reason: Pain Score 4-10 Medical Necessity - Tobacco Use Smoking Status: Never smoker Assessment/Plan All Active Problems (Last Reviewed 01/08/20 @ 19:[address] Robel Kulkarni, ) COVID-19 (Acute) Encephalopathy, metabolic (Acute) Acute respiratory failure with hypoxia (Acute) Debility (Acute) Herpes zoster (Acute) Pressure ulcer of left buttock, stage 1 (Resolved) Pressure ulcer of right buttock, stage 1 (Resolved) RECOMMENDATIONS: 1. Completed convalescent serum; continue remdesivir, Decadron and anticoagulation 2. Monitor oxygen status closely. Wean oxygen as tolerated during the day 3. Continue BiPAP at night 4. Follow delirium protocol 5. Diuretic challenge pending renal panel IMPRESSIONS: 1. Pneumonia secondary to COVID-19 Family is wishing to have aggressive measures. Patient would be a candidate for convalescent serum (02/27), remdesivir (05/01) and Decadron (05/06). Patient should continue with his baseline rivaroxaban as this should provide plenty of anticoagulation to avoid thrombotic risk. Patient is not currently on antibiotics at this time, which I believe is appropriate. We can attempt to challenge with diuretics pending renal function. Continue to follow clinically. 2. Metabolic encephalopathy with baseline dementia Patient reportedly has dementia at baseline, but may be worse off at this time. Recommend following delirium protocol and avoid benzodiazepines. Patient does have Haldol as needed. We will need to watch closely to make sure her oxygen stays in place. Patient may require initiation of basal insulin if hyperglycemia persists 3. Chronic A. fib/diabetes mellitus/advanced age Complicates care, management, recovery and prognosis. We will need to watch patient's blood sugars closely given baseline diabetes and concomitant steroid therapy. No significant hypertension has been noted. Inpatient E&M: 99596 Subs Hosp L2
[2020-01-11 11:08] LABS: ALB/GLOB Ratio 0.8 RATIO (0.9-2.4); AST(SGOT) 34 U/L (15-37); Alanine Aminotransfer ALT/SGPT 48 U/L (16-61); Albumin, Serum 2.9 g/dL (3.2-5.0); Alkaline Phosphatase 67 U/L (45-117); Anion Gap 7 (5-15); BUN 22 mg/dL (7-18); BUN/Creat Ratio 25.3 RATIO (10-20); Calcium,Total 8.4 mg/dL (8.5-10.1); Chloride 106 mmol/L (98-107); Creatinine, Serum 0.87 mg/dL (0.70-1.30); EST Glomerular Filtration Rate 89 mL/min (>60); Est Glom Filt Rate - Afr Amer 108 mL/min (>60); Estimated Creatinine Clearance 77.42 ml/min; Globulin 3.7 g/dL (2.2-4.2); Glucose 217 mg/dL (74-106); Potassium 4.2 mmol/L (3.5-5.1); Protein, Total 6.6 g/dL (6.4-8.2); Sodium Level 139 mmol/L (136-145)
[2020-01-11 11:46] LABS: Bedside Glucose 238 mg/dL (70-110)
--- NOTE | 2020-01-11 14:07 | CM.UR ---
Rounded with [employer] home economist nurse and Dr. Guzman. Discharge plan thus far has been to return to home with his home care services already in place however Dr. Guzman does not believe the patient will be able to go home and feels he should go to SNF. Alerted SW. Efren Ricks RN,[facility].
[2020-01-11 16:35] LABS: Bedside Glucose 270 mg/dL (70-110)
[2020-01-11] MEDS: Aspirin E.C. 81 MG Tablet PO (21:10)
[2020-01-11] MEDS: Atorvastatin Calcium 40 MG Tablet PO (21:11)
[2020-01-11] MEDS: Mirtazapine 15 MG Tablet PO (21:11)
[2020-01-11 22:11] LABS: Bedside Glucose 328 mg/dL (70-110)
[2020-01-12] VITALS (11 sets, daily range): BP systolic 95–125; BP diastolic 60–78; PULSE 57–88; RESP 12–18; TEMP 35.4–36.8; O2SAT 92–95
[2020-01-12] MEDS: Insulin Lispro 100 UNIT/ML INSULN.PEN SC ×4 (06:06→21:49)
[2020-01-12 06:30] LABS: Absolute Lymphocyte Count 1.21 X10^3/uL (0.83-4.51); Absolute Neutrophil Count 4.5 X10^3/uL (2.0-7.7); Basophil# 0.02 X10^3/uL; Basophil% 0.3 % (0-1); Eosinophil# 0.02 X10^3/uL; Eosinophils% 0.3 % (0-5); Hematocrit 40.8 % (40-54); Hemoglobin 13.1 g/dL (13.0-16.5); Lymphocyte # 1.21 X10^3/ul (4.0); Lymphocyte % 18.7 % (19-41); Mean Corp Hgb Conc 32.1 g/dL (32-36); Mean Corpuscular Hgb 30.2 pg (27.0-32.0); Mean Platelet Vol. 8.9 fl (6.2-12.0); Monocyte# 0.61 X10^3/uL; Monocyte% 9.4 % (0-10); NRBC Flagged by Analyzer 0 % (0-5); Neutrophil # 4.52 X10^3/uL (2.7-7.7); Neutrophil % 69.8 % (47-70); Platelet Count 326 K/mm3 (150-450); RBC Distribution Width CV 12.3 % (11.6-14.6); RBC Distribution Width SD 42.7 fl (35.1-43.9); Red Blood Count 4.34 M/mm3 (4.6-6.2); White Blood Count 6.5 K/mm3 (4.4-11.0)
[2020-01-12 06:54] LABS: ALB/GLOB Ratio 0.8 RATIO (0.9-2.4); AST(SGOT) 23 U/L (15-37); Alanine Aminotransfer ALT/SGPT 40 U/L (16-61); Albumin, Serum 2.9 g/dL (3.2-5.0); Alkaline Phosphatase 70 U/L (45-117); Anion Gap 7 (5-15); BUN 27 mg/dL (7-18); Calcium,Total 8.6 mg/dL (8.5-10.1); Chloride 107 mmol/L (98-107); Creatinine, Serum 1.04 mg/dL (0.70-1.30); EST Glomerular Filtration Rate 73 mL/min (>60); Est Glom Filt Rate - Afr Amer 88 mL/min (>60); Estimated Creatinine Clearance 64.77 ml/min; Globulin 3.8 g/dL (2.2-4.2); Glucose 229 mg/dL (74-106); Potassium 4.4 mmol/L (3.5-5.1); Protein, Total 6.7 g/dL (6.4-8.2); Sodium Level 140 mmol/L (136-145)
--- NOTE | 2020-01-12 07:04 | PCM.PN.HOSP ---
Patient Problems: Active and Suspected Problems (Last Reviewed 01/08/20 @ 19:[address] Robel Kulkarni, DO) COVID-19 (Acute) Encephalopathy, metabolic (Acute) Acute respiratory failure with hypoxia (Acute) Debility (Acute) Herpes zoster (Acute) Subjective: The patient is an 79 y/o M w/ PMHx: ELDER on CPAP q HS, OA, HTN, HLD, CAD s/p PCI, Hx CVA, Alzheimer's dementia, Diabetes mellitus type II, GERD who presents to the [facility] ED on 01/08/20 with history of onset illness 12/29/2019 with fatigue, malaise, fever, body aches, cough and dyspnea with positive Covid testing on 12/29 with family caring for him since however patient with increased work of breathing, accessory muscle usage with outside ED presentation with transfer to [facility] for further care. Work-up upon presentation included CBC with WC 4.1, hemoglobin 11.7, platelet 164 with lymphopenia, D-dimer 0.76 but normal once age-adjusted, CMP with glucose 283 otherwise not marked appearing, pro calcitonin less than 0.01. Patient with symptoms consistent with Covid, positive outpatient testing, film at outside facility consistent with Covid pneumonia, transitioned to Covid unit at [facility], currently maintaining oxygen with wean to 4 L nasal cannula, BiPAP nightly used 01/09/2020, continued Decadron regimen, received regimen of remdesivir as well as plasma 01/09/2020, maintained on Xarelto regimen. 01/12/2020 a.m. worsened appearance even from day prior, more lethargic, CT head with no acute findings aside chronic involutional changes, VBG obtained and reviewed per pulmonary medicine with plan for possible placement on AVAP if needed, UA also requested in case contributing as unable to give good history regarding symptoms. ID and pulmonary following. Currently once clinically appropriate, plan custodial facility placement at facility accepting COVID patients. Patient this a.m. with continued increased fatigue and lethargy. Nurse was concerned as patient with difficulty arousing even with sternal rub. Patient oxygenation however did remain in continue to be appropriate. CT of the brain was obtained and noted chronic involutional changes only. RT attempted ABG however VBG was obtained and noted pH 7.38, PO2 17, bicarb 27, O2 [address] Sandoval with potential transition if needed to AVAP. Patient following all these evaluations more alert, reevaluated and talking in the room, notes doing well but does appear more fatigued and less interactive. Any worsened dyspnea. Patient denies fevers, chills, nausea, emesis, abdominal pain, chest pain. Objective: Physical Examination: General: More fatigued, initially per staff previously was less alert, even sternally rubbed but now following CT head and VBG, interactive, seated upright in the MS 2 Covid bed, still more fatigued than even previously, can answer questions, notes that he is hungry. Skin: normal color, turgor, no icterus, cyanosis except occasional staged ecchymoses. HEENT: AT/NC, EOMI, PERRLA, dry MM. Lungs: Diminished breath sounds, greater bases, normal effort, no rales, ronchi or wheezing. Heart: Regular rate and rhythm; no gallop, rub audible. Abdomen: soft, NTTP, ND, normal BS. Extremities: no cyanosis, clubbing, or edema. Neurological: patient awake, alert, oriented as noted; cognitive function worsened from day prior, underlying baseline dementia; pupils equally reactive to light and accomodation; cranial nerves II-XII grossly normal, moving all 4 extremities, no focal deficits, strength remains severely global decreased. Psychiatric: affect appears more fatigued, flat, no acute evidence of depressive or anxiety feelings. Vitals/I&O's: Vital Signs Temp Pulse Resp BP Pulse Ox 98.3 F 79 16 104/69 94 01/12/20 05:50 01/12/20 05:50 01/12/20 05:50 01/12/20 05:50 01/12/20 05:50 Oxygen Flow Rate (L/min) 3 Oxygen Delivery Method Nasal Cannula Weight: 224 lb 15.99 oz Body Mass Index (BMI) 28.8 Finger Stick Blood Glucose 160 Intake and Output for Last 24 Hours 01/10/20 01/11/20 01/12/20 23:59 23:59 23:59 Intake Total 350 / 350 790 / 890 450 / 450 Balance 350 / 350 790 / 890 450 / 450 Laboratory Results 01/11/20 06:41: POC Glucose 245 H 01/11/20 08:23: WBC 5.8, RBC 4.01 L, Hgb 12.1 L, Hct 37.3 L, MCV 93.0, MCH 30.2, MCHC 32.4, RDW Std Deviation 42.5, RDW Coeff of Az 12.4, Plt Count 269, MPV 9.0, Immature Gran % (Auto) 0.700, Neut % (Auto) 75.1 H, Lymph % (Auto) 15.1 L, [place] % (Auto) 8.7, Eos % (Auto) 0.2, Baso % (Auto) 0.2, Absolute Neuts (auto) 4.3, Absolute Lymphs (auto) 0.87, Nucleated RBC % 0 01/11/20 08:23: Sodium 139, Potassium 4.2, Chloride 106, Carbon Dioxide 26.0, Anion Gap 7, BUN 22 H, Creatinine 0.87, Estim Creat Clear Calc 77.42, Est GFR (MDRD) Af Amer 108, Est GFR (MDRD) Non-Af 89, BUN/Creatinine Ratio 25.3 H, Glucose 217 H, Calcium 8.4 L, Total Bilirubin 0.60, AST 34, ALT 48, Alkaline Phosphatase 67, Total Protein 6.6, Albumin 2.9 L, Globulin 3.7, Albumin/Globulin Ratio 0.8 L 01/11/20 11:34: POC Glucose 238 H 01/11/20 16:14: POC Glucose 270 H 01/11/20 21:21: POC Glucose 328 H 01/12/20 05:32: WBC 6.5, RBC 4.34 L, Hgb 13.1, Hct 40.8, MCV 94.0, MCH 30.2, MCHC 32.1, RDW Std Deviation 42.7, RDW Coeff of Az 12.3, Plt Count 326, MPV 8.9, Immature Gran % (Auto) 1.500 H, Neut % (Auto) 69.8, Lymph % (Auto) 18.7 L, [place] % (Auto) 9.4, Eos % (Auto) 0.3, Baso % (Auto) 0.3, Absolute Neuts (auto) 4.5, Absolute Lymphs (auto) 1.21, Nucleated RBC % 0 01/12/20 05:32: Sodium 140, Potassium 4.4, Chloride 107, Carbon Dioxide 26.0, Anion Gap 7, BUN 27 H, Creatinine 1.04, Estim Creat Clear Calc 64.77, Est GFR (MDRD) Af Amer 88, Est GFR (MDRD) Non-Af 73, BUN/Creatinine Ratio 26.0 H, Glucose 229 H, Calcium 8.6, Total Bilirubin 0.60, AST 23, ALT 40, Alkaline Phosphatase 70, Total Protein 6.7, Albumin 2.9 L, Globulin 3.8, Albumin/Globulin Ratio 0.8 L Current Medications Acetaminophen (Acetaminophen 500 Mg Tablet) 1,000 mg PO Q6H PRN PRN PRN Reason: Pain Score 1-10 Albuterol Sulfate (Albuterol Ih 8.5 Gm (Proair) Inhaler (200 Puffs)) 4 - 8 puff INHALATION Q4H PRN PRN PRN Reason: Dyspnea, wheezing Aspirin (Aspirin E.C. 81 Mg Tablet) 81 mg PO QHS [facility] Last Admin: 01/11/20 21:10 Dose: 81 mg Documented by: Atorvastatin Calcium (Atorvastatin Calcium 40 Mg Tablet) 40 mg PO QHS [facility] Last Admin: 01/11/20 21:11 Dose: 40 mg Documented by: Calamine/Phenol (Menthol/Lanolin/Calamine/Znox 113 Gm Tube) 1 applic TOPICAL BID [facility]; Protocol Last Admin: 01/11/20 21:11 Dose: 1 applic Documented by: Dexamethasone Sodium Phosphate (Dexamethasone 10 Mg/Ml Vial) 6 mg IV DAILY [facility] Stop: 01/18/20 10:01 Last Admin: 01/11/20 09:04 Dose: 6 mg Documented by: Dextrose (Dextrose 50%-Water 25 Gm/50 Ml Disp.Syrin) 0 gm IV X1 PRN; Protocol PRN Reason: Hypoglycemia Docusate Sodium (Docusate Sodium 100 Mg Capsule) 100 mg PO DAILY [facility] Last Admin: 01/11/20 09:04 Dose: 100 mg Documented by: Glucagon (Glucagon 1 Mg/Ml Syringe) 1 mg IM .X1 PRN PRN Reason: Hypoglycemia Haloperidol Lactate (Haloperidol Lactate 5 Mg/Ml Vial) 1 mg IM Q4H PRN PRN PRN Reason: uncontrollable anxiety Hydralazine HCl (Hydralazine 20 Mg/Ml Vial) 10 mg IV Q4H PRN PRN PRN Reason: SBP > 160 Remdesivir 100 mg/ Sodium (Chloride) 250 mls @ 125 mls/hr IV QHS [facility]; Protocol Stop: 01/12/20 23:59 Last Infusion: 01/12/20 00:44 Dose: Infused Documented by: Sodium Chloride () 250 mls @ 15 mls/hr IV .[id number] PRN PRN Reason: Saline Flush Last Infusion: 01/09/20 14:22 Dose: Infused Documented by: Sodium Chloride () 250 mls @ 15 mls/hr IV .[id number] PRN PRN Reason: Additional IVPB Infusion Insulin Human Lispro (Insulin Lispro 100 Unit/Ml Insuln.Pen) 0 unit SC ACHS [facility]; Protocol Last Admin: 01/12/20 06:06 Dose: 2 u Documented by: Lamotrigine (Lamotrigine 150 Mg Tablet) 150 mg PO BID [facility] Last Admin: 01/11/20 21:11 Dose: 150 mg Documented by: Metoprolol Tartrate (Metoprolol Tartrate 25 Mg Tablet) 25 mg PO BID [facility] Last Admin: 01/11/20 21:11 Dose: 25 mg Documented by: Mirtazapine (Mirtazapine 15 Mg Tablet) 15 mg PO QHS [facility] Last Admin: 01/11/20 21:11 Dose: 15 mg Documented by: Multivitamins (Multivitamins,Therapeutic Tablet) 1 tablet PO DAILY [facility] Last Admin: 01/11/20 09:05 Dose: 1 tablet Documented by: Nitroglycerin (Nitroglycerin (Inpatient Use) 0.4 Mg Tab.Subl) 0.4 mg SUBLINGUAL Q5M PRN PRN Reason: Angina Ondansetron HCl (Ondansetron Odt 4 Mg Tablet) 4 mg PO Q8H PRN PRN PRN Reason: NAUSEA Pantoprazole Sodium (Pantoprazole Sodium 40 Mg Tablet) 40 mg PO DAILY [facility] Last Admin: 01/11/20 09:05 Dose: 40 mg Documented by: Polyethylene Glycol (Polyethylene Glycol 3350 17 Gm Packet) 17 gm PO DAILY [facility] Last Admin: 01/11/20 09:02 Dose: 17 gm Documented by: Ranolazine (Ranolazine 500 Mg Tablet) 500 mg PO BID [facility] Last Admin: 01/11/20 21:11 Dose: 500 mg Documented by: Rivaroxaban (Rivaroxaban 20 Mg Tablet) 20 mg PO DAILY [facility] Last Admin: 01/11/20 09:06 Dose: 20 mg Documented by: Sodium Chloride (0.9% Saline Lock 10 Ml Syringe) 10 - 40 ml IV UD PRN PRN Reason: SALINE FLUSH Last Admin: 01/11/20 09:08 Dose: 10 ml Documented by: Tramadol HCl (Tramadol 50 Mg Tablet) 100 mg PO Q4H PRN PRN Reason: Pain Score 4-10 STROKE Vital Signs/Narrative: Vital Signs Temp Pulse Resp BP Pulse Ox 01/12/20 05:50 98.3 F 79 16 104/69 94 01/12/20 05:05 88 18 93 Medical Necessity - Tobacco Use Smoking Status: Never smoker Assessment/Plan All Active Problems (Last Reviewed 01/08/20 @ 19:[address] Robel Kulkarni, DO) COVID-19 (Acute) Encephalopathy, metabolic (Acute) Acute respiratory failure with hypoxia (Acute) Debility (Acute) Herpes zoster (Acute) Pressure ulcer of left buttock, stage 1 (Resolved) Pressure ulcer of right buttock, stage 1 (Resolved) The patient is an 79 y/o M w/ PMHx: ELDER on CPAP q HS, OA, HTN, HLD, CAD s/p PCI, Hx CVA, Alzheimer's dementia, Diabetes mellitus type II, GERD who presents to the [facility] ED on 01/08/20 with history of onset illness 12/29/2019 with fatigue, malaise, fever, body aches, cough and dyspnea with positive Covid testing on 12/29 with family caring for him since however patient with increased work of breathing, accessory muscle usage with outside ED presentation with transfer to [facility] for further care. 1. Acute Encephalopathy secondary to Acute Hypoxic Respiratory Failure secondary to Bilateral Pneumonia secondary to Acute Viral Syndrome, COVID-19: Work-up upon presentation included CBC with WC 4.1, hemoglobin 11.7, platelet 164 with lymphopenia, D-dimer 0.76 but normal once age-adjusted, CMP with glucose 283 otherwise not marked appearing, pro calcitonin less than 0.01. Patient with symptoms consistent with Covid, positive outpatient testing, film at outside facility consistent with Covid pneumonia, transition to Covid unit at [facility], currently maintaining oxygen with wean to 4 L nasal cannula, BiPAP nightly used 01/09/2020, continue Decadron regimen, received regimen of remdesivir as well as plasma 01/09/2020, maintained on Xarelto regimen, infectious disease and pulmonary medicine following, continue supportive care. 01/12/2020 a.m. worsened appearance even from day prior, more lethargic, CT head with no acute findings aside chronic involutional changes, VBG obtained and reviewed per pulmonary medicine with plan for possible placement on AVAP if needed, UA also requested in case contributing as unable to give good history regarding symptoms. Currently once clinically appropriate, plan custodial facility placement at facility accepting COVID patients. 2. CAD: Patient s/p PCI w/ RCA, LCX, and OM PTCA/SARKIS in April, May of 2014 as well as PTCA/ballooning to OM1 at [facility] in December 2017, continue aspirin, Xarelto, statin therapy, metoprolol, not on ORION inhibitor or ARB with allergy listed. 3. History of prior CVA: We will continue patient home aspirin, Xarelto, statin therapy, hypertensive regimen and diabetic regimen. 4. Diabetes mellitus type II: Hold oral home regimen, ADA diet, accu checks w/ ISS. 5. Hypertension: Continue home regimen including metoprolol, Lasix with hold parameters, PRN hydralazine. 6. Hyperlipidemia: Continue home statin regimen. 7. Alzheimer's dementia without behavioral disturbance history: We will continue patient home Remeron regimen. 8. ELDER: Currently BIPAP q HS given presentation. 9. GERD: Continue home PPI. 10. DVT Prophylaxis: SCDs, continue home xarelto regimen. 11. CODE status: Full Code. Patient daughterMelinda called to update patient status, changes and evaluations ongoing; however, no answer and voicemail box full. Will attempt to contact again later today. Inpatient E&M: [id number] Subs Hosp L2
[2020-01-12 08:26] LABS: Bedside Glucose 216 mg/dL (70-110)
--- NOTE | 2020-01-12 08:53 | PN_ITS ---
Patient Problems: Active and Suspected Problems (Last Reviewed 01/08/20 @ 19:[address] Robel Kulkarni, DO) COVID-19 (Acute) Encephalopathy, metabolic (Acute) Acute respiratory failure with hypoxia (Acute) Debility (Acute) Herpes zoster (Acute) Subjective: Patient did okay overnight. Patient was on his baseline noninvasive therapy with sleep and tolerated well. Patient with no complaints and remains pleasantly demented. Patient does not struggle with BiPAP mask. - Physical Exam Vitals/I&O's: Vital Signs Temp Pulse Resp BP Pulse Ox 36.8 C 79 16 104/69 94 01/12/20 05:50 01/12/20 05:50 01/12/20 05:50 01/12/20 05:50 01/12/20 05:50 Oxygen Flow Rate (L/min) 3 Oxygen Delivery Method Nasal Cannula Weight: 102.058 kg Body Mass Index (BMI) 28.8 Finger Stick Blood Glucose 160 Intake and Output for Last 24 Hours 01/10/20 01/11/20 01/12/20 23:59 23:59 23:59 Intake Total 350 / 350 790 / 890 450 / 450 Balance 350 / 350 790 / 890 450 / 450 General: Alert, Cooperative, Confused, Disoriented, - - No conversational dyspnea HEENT: Atraumatic, PERRLA, EOMI, Normocephalic, - - No scleral icterus or injection noted Oral: Moist Mucosa, No Gingival or Mucosal Lesions/ Ulcerations Neck: Supple, No JVD, No Nodes, Trachea Midline Lungs: No rhonchi, No wheeze, No rales, Diminished, - - Symmetric expansion. Fair effort. Cardiovascular: Normal S1, Normal S2, No murmurs, Irregular Rate, No rub noted, No Gallop Abdomen: Bowel Sounds Present, Soft, Non Tender, Non-Distended Extremities: No clubbing, No cyanosis, No edema Skin: No rashes, No breakdown Musculoskeletal: No Tenderness to Palpation of Joints or Extremities Lymphatic: No Cervical, Supraclavicular, or Inguinal Adenopathy Neurological: Cranial nerves II-XII grossly intact, Neuro grossly intact Psych/Mental Status: Flat Affect Laboratory Results 01/11/20 06:41: POC Glucose 245 H 01/11/20 08:23: WBC 5.8, RBC 4.01 L, Hgb 12.1 L, Hct 37.3 L, MCV 93.0, MCH 30.2, MCHC 32.4, RDW Std Deviation 42.5, RDW Coeff of Az 12.4, Plt Count 269, MPV 9.0, Immature Gran % (Auto) 0.700, Neut % (Auto) 75.1 H, Lymph % (Auto) 15.1 L, [place] % (Auto) 8.7, Eos % (Auto) 0.2, Baso % (Auto) 0.2, Absolute Neuts (auto) 4.3, Absolute Lymphs (auto) 0.87, Nucleated RBC % 0 01/11/20 08:23: Sodium 139, Potassium 4.2, Chloride 106, Carbon Dioxide 26.0, Anion Gap 7, BUN 22 H, Creatinine 0.87, Estim Creat Clear Calc 77.42, Est GFR (MDRD) Af Amer 108, Est GFR (MDRD) Non-Af 89, BUN/Creatinine Ratio 25.3 H, Glucose 217 H, Calcium 8.4 L, Total Bilirubin 0.60, AST 34, ALT 48, Alkaline Phosphatase 67, Total Protein 6.6, Albumin 2.9 L, Globulin 3.7, Albumin/Globulin Ratio 0.8 L 01/11/20 11:34: POC Glucose 238 H 01/11/20 16:14: POC Glucose 270 H 01/11/20 21:21: POC Glucose 328 H 01/12/20 05:32: WBC 6.5, RBC 4.34 L, Hgb 13.1, Hct 40.8, MCV 94.0, MCH 30.2, MCHC 32.1, RDW Std Deviation 42.7, RDW Coeff of Az 12.3, Plt Count 326, MPV 8.9, Immature Gran % (Auto) 1.500 H, Neut % (Auto) 69.8, Lymph % (Auto) 18.7 L, [place] % (Auto) 9.4, Eos % (Auto) 0.3, Baso % (Auto) 0.3, Absolute Neuts (auto) 4.5, Absolute Lymphs (auto) 1.21, Nucleated RBC % 0 01/12/20 05:32: Sodium 140, Potassium 4.4, Chloride 107, Carbon Dioxide 26.0, Anion Gap 7, BUN 27 H, Creatinine 1.04, Estim Creat Clear Calc 64.77, Est GFR (MDRD) Af Amer 88, Est GFR (MDRD) Non-Af 73, BUN/Creatinine Ratio 26.0 H, Glucose 229 H, Calcium 8.6, Total Bilirubin 0.60, AST 23, ALT 40, Alkaline Phosphatase 70, Total Protein 6.7, Albumin 2.9 L, Globulin 3.8, Albumin/Globulin Ratio 0.8 L 01/12/20 06:05: POC Glucose 216 H Current Medications Acetaminophen (Acetaminophen 500 Mg Tablet) 1,000 mg PO Q6H PRN PRN PRN Reason: Pain Score 1-10 Albuterol Sulfate (Albuterol Ih 8.5 Gm (Proair) Inhaler (200 Puffs)) 4 - 8 puff INHALATION Q4H PRN PRN PRN Reason: Dyspnea, wheezing Aspirin (Aspirin E.C. 81 Mg Tablet) 81 mg PO QHS [facility] Last Admin: 01/11/20 21:10 Dose: 81 mg Documented by: Atorvastatin Calcium (Atorvastatin Calcium 40 Mg Tablet) 40 mg PO QHS [facility] Last Admin: 01/11/20 21:11 Dose: 40 mg Documented by: Calamine/Phenol (Menthol/Lanolin/Calamine/Znox 113 Gm Tube) 1 applic TOPICAL BID [facility]; Protocol Last Admin: 01/11/20 21:11 Dose: 1 applic Documented by: Dexamethasone Sodium Phosphate (Dexamethasone 10 Mg/Ml Vial) 6 mg IV DAILY [facility] Stop: 01/18/20 10:01 Last Admin: 01/11/20 09:04 Dose: 6 mg Documented by: Dextrose (Dextrose 50%-Water 25 Gm/50 Ml Disp.Syrin) 0 gm IV X1 PRN; Protocol PRN Reason: Hypoglycemia Docusate Sodium (Docusate Sodium 100 Mg Capsule) 100 mg PO DAILY [facility] Last Admin: 01/11/20 09:04 Dose: 100 mg Documented by: Glucagon (Glucagon 1 Mg/Ml Syringe) 1 mg IM .X1 PRN PRN Reason: Hypoglycemia Haloperidol Lactate (Haloperidol Lactate 5 Mg/Ml Vial) 1 mg IM Q4H PRN PRN PRN Reason: uncontrollable anxiety Hydralazine HCl (Hydralazine 20 Mg/Ml Vial) 10 mg IV Q4H PRN PRN PRN Reason: SBP > 160 Remdesivir 100 mg/ Sodium (Chloride) 250 mls @ 125 mls/hr IV QHS [facility]; Protocol Stop: 01/12/20 23:59 Last Infusion: 01/12/20 00:44 Dose: Infused Documented by: Sodium Chloride () 250 mls @ 15 mls/hr IV .[id number] PRN PRN Reason: Saline Flush Last Infusion: 01/09/20 14:22 Dose: Infused Documented by: Sodium Chloride () 250 mls @ 15 mls/hr IV .[id number] PRN PRN Reason: Additional IVPB Infusion Insulin Glargine (Insulin Glargine 100 Units/Ml Pen) 10 units SC BREAKFAST [facility] Insulin Human Lispro (Insulin Lispro 100 Unit/Ml Insuln.Pen) 0 unit SC ACHS [facility]; Protocol Last Admin: 01/12/20 06:06 Dose: 2 u Documented by: Lamotrigine (Lamotrigine 150 Mg Tablet) 150 mg PO BID [facility] Last Admin: 01/11/20 21:11 Dose: 150 mg Documented by: Metoprolol Tartrate (Metoprolol Tartrate 25 Mg Tablet) 25 mg PO BID [facility] Last Admin: 01/11/20 21:11 Dose: 25 mg Documented by: Mirtazapine (Mirtazapine 15 Mg Tablet) 15 mg PO QHS [facility] Last Admin: 01/11/20 21:11 Dose: 15 mg Documented by: Multivitamins (Multivitamins,Therapeutic Tablet) 1 tablet PO DAILY [facility] Last Admin: 01/11/20 09:05 Dose: 1 tablet Documented by: Nitroglycerin (Nitroglycerin (Inpatient Use) 0.4 Mg Tab.Subl) 0.4 mg SUBLINGUAL Q5M PRN PRN Reason: Angina Ondansetron HCl (Ondansetron Odt 4 Mg Tablet) 4 mg PO Q8H PRN PRN PRN Reason: NAUSEA Pantoprazole Sodium (Pantoprazole Sodium 40 Mg Tablet) 40 mg PO DAILY [facility] Last Admin: 01/11/20 09:05 Dose: 40 mg Documented by: Polyethylene Glycol (Polyethylene Glycol 3350 17 Gm Packet) 17 gm PO DAILY [facility] Last Admin: 01/11/20 09:02 Dose: 17 gm Documented by: Ranolazine (Ranolazine 500 Mg Tablet) 500 mg PO BID [facility] Last Admin: 01/11/20 21:11 Dose: 500 mg Documented by: Rivaroxaban (Rivaroxaban 20 Mg Tablet) 20 mg PO DAILY [facility] Last Admin: 01/11/20 09:06 Dose: 20 mg Documented by: Sodium Chloride (0.9% Saline Lock 10 Ml Syringe) 10 - 40 ml IV UD PRN PRN Reason: SALINE FLUSH Last Admin: 01/11/20 09:08 Dose: 10 ml Documented by: Tramadol HCl (Tramadol 50 Mg Tablet) 100 mg PO Q4H PRN PRN Reason: Pain Score 4-10 Medical Necessity - Tobacco Use Smoking Status: Never smoker Assessment/Plan All Active Problems (Last Reviewed 01/08/20 @ 19:[address] Robel Kulkarni, DO) COVID-19 (Acute) Encephalopathy, metabolic (Acute) Acute respiratory failure with hypoxia (Acute) Debility (Acute) Herpes zoster (Acute) Pressure ulcer of left buttock, stage 1 (Resolved) Pressure ulcer of right buttock, stage 1 (Resolved) RECOMMENDATIONS: 1. Completed convalescent serum; continue remdesivir, Decadron and anticoagulation 2. Monitor oxygen status closely. Wean oxygen as tolerated during the day 3. Continue BiPAP at night 4. Follow delirium protocol 5. Add daily weights IMPRESSIONS: 1. Pneumonia secondary to COVID-19 Family is wishing to have aggressive measures. Patient would be a candidate for convalescent serum (02/27), remdesivir (05/01) and Decadron (05/06). Patient should continue with his baseline rivaroxaban as this should provide plenty of anticoagulation to avoid thrombotic risk. Patient is not currently on antibiotics at this time, which I believe is appropriate. Input and output data is not accurate. We will add daily weights and hold off on diuretic therapy unless patient requires more supplemental oxygen. Continue to follow clinically. 2. Metabolic encephalopathy with baseline dementia Patient reportedly has dementia at baseline, but may be worse off at this time. Recommend following delirium protocol and avoid benzodiazepines. Patient does have Haldol as needed. We will need to watch closely to make sure her oxygen stays in place. Will initiate on low-dose basal insulin 3. Chronic A. fib/diabetes mellitus/advanced age Complicates care, management, recovery and prognosis. We will need to watch patient's blood sugars closely given baseline diabetes and concomitant steroid therapy. No significant hypertension has been noted. Addendum 11:30 AM: Patient noted to have decreased mental status after being taken off of BiPAP. CT of the head was unremarkable. Arterial blood gas appears to be venous, but does not suggest acute CO2 retention. No indication for BiPAP therapy for mental status at this time. Clinical suspicion for an element of delirium. Inpatient E&M: 43353 Subs Hosp L3
[2020-01-12] MEDS: dexAMETHasone 10 MG/ML Vial 6 MG IV (09:38)
--- NOTE | 2020-01-12 09:53 | CT_ITS ---
STUDY: CT BRAIN WITHOUT CONTRAST REASON FOR EXAM: Male, 79 years old. Unresponsive, lethargic, COVID +. Hx diabetes, hypertension, CVA. RADIATION DOSAGE (If Supplied By Facility): CTDIvol = ( 44.99 ) mGy, DLP = ( 762.36 ) mGycm TECHNIQUE: Transaxial CT imaging of the brain was performed without administration of intravenous contrast material. Individualized dose optimization techniques were used for this CT. COMPARISON: 08/20/2015 FINDINGS: Normal soft tissue structures. Normal calvarium. There is severe cerebral atrophy with widening of the extra-axial spaces and ventricular dilatation. There are areas of decreased attenuation within the white matter tracts of the supratentorial brain, consistent with microvascular disease changes. Normal basal ganglia and thalami. Normal brainstem. Normal cerebellum. There is no intracranial hemorrhage. There are no findings of an acute ischemic infarction. Normal visualized paranasal sinuses. CT/Brain/Head without Contrast IMPRESSION: Chronic involutional changes of the brain. Electronically Signed: Jonny Campo MD at 11:09 EST Tel , Service support ,
[2020-01-12 11:00] LABS: Blood Gas Specimen Type VEN; O2 Delivery Device Cannula; VBG BASE EXCESS 2 mmol/L (-1.0-3.5); VBG Bicarbonate 27 mmol/L (22-26); VBG PO2 17 mmHg (25-40); VBG SO2 22 % (50-70); VBG TCO2 28 mmol/L (23-33); VBG pCO2 44.9 mmHg (41-51); VBG pH 7.38 (7.32-7.42)
[2020-01-12] MEDS: Menthol/Lanolin/Calamine/Znox 113 GM Tube 1 APPLIC TOPICAL ×2 (11:30→21:32)
[2020-01-12 15:46] LABS: Bedside Glucose 193 mg/dL (70-110)
--- NOTE | 2020-01-12 16:07 | CPS ---
Critical VBG Results given to @ 0318 on 01-12-20
[2020-01-12 17:11] LABS: Bedside Glucose 333 mg/dL (70-110)
[2020-01-12] MEDS: Aspirin E.C. 81 MG Tablet PO (21:32)
[2020-01-12] MEDS: Atorvastatin Calcium 40 MG Tablet PO (21:32)
[2020-01-12] MEDS: lamoTRIgine 150 MG Tablet PO (21:32)
[2020-01-12] MEDS: Ranolazine 500 MG Tablet PO (21:32)
[2020-01-12] MEDS: Mirtazapine 15 MG Tablet PO (21:43)
--- NOTE | 2020-01-13 00:32 | CPS ---
pt did not want bipap --94% on 2 l/m
[2020-01-13 00:45] LABS: Bedside Glucose 284 mg/dL (70-110)
[2020-01-13 04:00] VITALS: O2SAT 94
[2020-01-13] MEDS: Insulin Lispro 100 UNIT/ML INSULN.PEN SC ×4 (06:08→22:47)
[2020-01-13 06:20] LABS: Bedside Glucose 203 mg/dL (70-110)
[2020-01-13 06:41] LABS: Absolute Lymphocyte Count 1.03 X10^3/uL (0.83-4.51); Absolute Neutrophil Count 3.2 X10^3/uL (2.0-7.7); Basophil# 0.07 X10^3/uL; Basophil% 1.4 % (0-1); Eosinophil# 0.07 X10^3/uL; Eosinophils% 1.4 % (0-5); Hematocrit 44.6 % (40-54); Hemoglobin 13.5 g/dL (13.0-16.5); Lymphocyte # 1.03 X10^3/ul (4.0); Lymphocyte % 21.2 % (19-41); Mean Corp Hgb Conc 30.3 g/dL (32-36); Mean Corpuscular Hgb 30.8 pg (27.0-32.0); Mean Corpuscular Volume 101.6 fL (80-94); Mean Platelet Vol. 8.7 fl (6.2-12.0); Monocyte% 8.2 % (0-10); NRBC Flagged by Analyzer 0 % (0-5); Neutrophil # 3.16 X10^3/uL (2.7-7.7); Neutrophil % 65.3 % (47-70); Platelet Count 265 K/mm3 (150-450); RBC Distribution Width CV 12.3 % (11.6-14.6); RBC Distribution Width SD 46.4 fl (35.1-43.9); Red Blood Count 4.39 M/mm3 (4.6-6.2); White Blood Count 4.9 K/mm3 (4.4-11.0)
[2020-01-13 07:15] LABS: ALB/GLOB Ratio 0.9 RATIO (0.9-2.4); AST(SGOT) 24 U/L (15-37); Alanine Aminotransfer ALT/SGPT 38 U/L (16-61); Alkaline Phosphatase 78 U/L (45-117); Anion Gap 10 (5-15); BUN 30 mg/dL (7-18); BUN/Creat Ratio 33.1 RATIO (10-20); Calcium,Total 8.3 mg/dL (8.5-10.1); Chloride 110 mmol/L (98-107); Creatinine, Serum 0.91 mg/dL (0.70-1.30); EST Glomerular Filtration Rate 85 mL/min (>60); Est Glom Filt Rate - Afr Amer 103 mL/min (>60); Estimated Creatinine Clearance 74.02 ml/min; Globulin 3.3 g/dL (2.2-4.2); Glucose 196 mg/dL (74-106); Potassium 4.1 mmol/L (3.5-5.1); Protein, Total 6.3 g/dL (6.4-8.2); Sodium Level 141 mmol/L (136-145)
--- NOTE | 2020-01-13 08:14 | PN_ITS ---
Patient Problems: Active and Suspected Problems (Last Reviewed 01/08/20 @ 19:[address] Robel Kulkarni, DO) COVID-19 (Acute) Encephalopathy, metabolic (Acute) Acute respiratory failure with hypoxia (Acute) Debility (Acute) Herpes zoster (Acute) Reason for Visit: Acute COVID-19 pneumonitis Subjective: Patient is an 79-year-old gentleman with history of dementia admitted progressive generalized weakness fatigue cough and dyspnea. His assessment was consistent with with COVID-19 pneumonitis Objective: GENERAL: cooperative HEENT: Atraumatic; EYES; Anicteric, Normal Conjunctiva NECK; supple, normal thyroid, RESPIRATORY: Diminished to auscultation CARDIOVASCULAR: Regular S1 S2, GI: soft, normoactive bowel sounds, : No Renal angle tenderness; EXTREMITIES: No edema, no clubbing, MUSCULOSKELETAL: no muscle waisting NEURO: Awake; no lateralizing signs. SKIN: No Rash PSYCH; Flat affect Vitals/I&O's: Vital Signs Temp Pulse Resp BP Pulse Ox 96.6 F L 57 L 18 125/78 H 94 01/12/20 17:38 01/12/20 22:00 01/12/20 17:38 01/12/20 17:38 01/13/20 04:00 Oxygen Flow Rate (L/min) 2 Oxygen Delivery Method Nasal Cannula Weight: 95.3 kg Body Mass Index (BMI) 28.8 Finger Stick Blood Glucose 160 Intake and Output for Last 24 Hours 01/11/20 01/12/20 01/13/20 23:59 23:59 23:59 Intake Total 790 / 890 700 / 800 200 / 200 Balance 790 / 890 700 / 800 200 / 200 Laboratory Results 01/12/20 06:05: POC Glucose 216 H 01/12/20 10:51: Specimen Type KWAME, VBG pH 7.38, VBG pO2 17 L*, VBG HCO3 27 H, VBG Total CO2 28, VBG O2 Sat (Calc) 22 L, VBG Base Excess 2, POC Mix VBG pCO2 Pt Tmp 44.9, O2 Delivery Device Cannula, Liter Flow 2.0 01/12/20 11:27: POC Glucose 193 H 01/12/20 16:00: POC Glucose 333 H 01/12/20 21:49: POC Glucose 284 H 01/13/20 05:51: POC Glucose 203 H 01/13/20 06:06: WBC 4.9, RBC 4.39 L, Hgb 13.5, Hct 44.6, MCV 101.6 H D, MCH 30.8, MCHC 30.3 L D, RDW Std Deviation 46.4 H, RDW Coeff of Az 12.3, Plt Count 265, MPV 8.7, Immature Gran % (Auto) 2.500 H, Neut % (Auto) 65.3, Lymph % (Auto) 21.2, [place] % (Auto) 8.2, Eos % (Auto) 1.4, Baso % (Auto) 1.4 H, Absolute Neuts (auto) 3.2, Absolute Lymphs (auto) 1.03, Nucleated RBC % 0 01/13/20 06:06: Sodium 141, Potassium 4.1, Chloride 110 H, Carbon Dioxide 21.0, Anion Gap 10, BUN 30 H, Creatinine 0.91, Estim Creat Clear Calc 74.02, Est GFR (MDRD) Af Amer 103, Est GFR (MDRD) Non-Af 85, BUN/Creatinine Ratio 33.1 H, Gl ucose 196 H, Calcium 8.3 L, Total Bilirubin 0.70, AST 24, ALT 38, Alkaline Phosphatase 78, Total Protein 6.3 L, Albumin 3.0 L, Globulin 3.3, Albumin/Globulin Ratio 0.9 Current Medications Acetaminophen (Acetaminophen 500 Mg Tablet) 1,000 mg PO Q6H PRN PRN PRN Reason: Pain Score 1-10 Albuterol Sulfate (Albuterol Ih 8.5 Gm (Proair) Inhaler (200 Puffs)) 4 - 8 puff INHALATION Q4H PRN PRN PRN Reason: Dyspnea, wheezing Aspirin (Aspirin E.C. 81 Mg Tablet) 81 mg PO QHS [facility] Last Admin: 01/12/20 21:32 Dose: 81 mg Documented by: Atorvastatin Calcium (Atorvastatin Calcium 40 Mg Tablet) 40 mg PO QHS [facility] Last Admin: 01/12/20 21:32 Dose: 40 mg Documented by: Calamine/Phenol (Menthol/Lanolin/Calamine/Znox 113 Gm Tube) 1 applic TOPICAL BID [facility]; Protocol Last Admin: 01/12/20 21:32 Dose: 1 applic Documented by: Dexamethasone Sodium Phosphate (Dexamethasone 10 Mg/Ml Vial) 6 mg IV DAILY [facility] Stop: 01/18/20 10:01 Last Admin: 01/12/20 09:38 Dose: 6 mg Documented by: Dextrose (Dextrose 50%-Water 25 Gm/50 Ml Disp.Syrin) 0 gm IV X1 PRN; Protocol PRN Reason: Hypoglycemia Docusate Sodium (Docusate Sodium 100 Mg Capsule) 100 mg PO DAILY [facility] Last Admin: 01/12/20 09:34 Dose: Not Given Documented by: Glucagon (Glucagon 1 Mg/Ml Syringe) 1 mg IM .X1 PRN PRN Reason: Hypoglycemia Haloperidol Lactate (Haloperidol Lactate 5 Mg/Ml Vial) 1 mg IM Q4H PRN PRN PRN Reason: uncontrollable anxiety Hydralazine HCl (Hydralazine 20 Mg/Ml Vial) 10 mg IV Q4H PRN PRN PRN Reason: SBP > 160 Sodium Chloride () 250 mls @ 15 mls/hr IV .[id number] PRN PRN Reason: Saline Flush Last Infusion: 01/09/20 14:22 Dose: Infused Documented by: Sodium Chloride () 250 mls @ 15 mls/hr IV .[id number] PRN PRN Reason: Additional IVPB Infusion Insulin Glargine (Insulin Glargine 100 Units/Ml Pen) 10 units SC BREAKFAST [facility] Last Admin: 01/12/20 11:38 Dose: 10 units Documented by: Insulin Human Lispro (Insulin Lispro 100 Unit/Ml Insuln.Pen) 0 unit SC ACHS [facility]; Protocol Last Admin: 01/13/20 06:08 Dose: 2 u Documented by: Lamotrigine (Lamotrigine 150 Mg Tablet) 150 mg PO BID [facility] Last Admin: 01/12/20 21:32 Dose: 150 mg Documented by: Metoprolol Tartrate (Metoprolol Tartrate 25 Mg Tablet) 25 mg PO BID [facility] Last Admin: 01/12/20 21:37 Dose: Not Given Documented by: Mirtazapine (Mirtazapine 15 Mg Tablet) 15 mg PO QHS [facility] Last Admin: 01/12/20 21:43 Dose: 15 mg Documented by: Multivitamins (Multivitamins,Therapeutic Tablet) 1 tablet PO DAILY [facility] Last Admin: 01/12/20 09:34 Dose: Not Given Documented by: Nitroglycerin (Nitroglycerin (Inpatient Use) 0.4 Mg Tab.Subl) 0.4 mg SUBLINGUAL Q5M PRN PRN Reason: Angina Ondansetron HCl (Ondansetron Odt 4 Mg Tablet) 4 mg PO Q8H PRN PRN PRN Reason: NAUSEA Pantoprazole Sodium (Pantoprazole Sodium 40 Mg Tablet) 40 mg PO DAILY [facility] Last Admin: 01/12/20 09:35 Dose: Not Given Documented by: Polyethylene Glycol (Polyethylene Glycol 3350 17 Gm Packet) 17 gm PO DAILY [facility] Last Admin: 01/12/20 09:34 Dose: Not Given Documented by: Ranolazine (Ranolazine 500 Mg Tablet) 500 mg PO BID [facility] Last Admin: 01/12/20 21:32 Dose: 500 mg Documented by: Rivaroxaban (Rivaroxaban 20 Mg Tablet) 20 mg PO DAILY [facility] Last Admin: 01/12/20 09:35 Dose: Not Given Documented by: Sodium Chloride (0.9% Saline Lock 10 Ml Syringe) 10 - 40 ml IV UD PRN PRN Reason: SALINE FLUSH Last Admin: 01/11/20 09:08 Dose: 10 ml Documented by: Tramadol HCl (Tramadol 50 Mg Tablet) 100 mg PO Q4H PRN PRN Reason: Pain Score 4-10 Medical Necessity - Tobacco Use Smoking Status: Never smoker Assessment/Plan All Active Problems (Last Reviewed 01/08/20 @ 19:[address] Robel Kulkarni, DO) COVID-19 (Acute) Encephalopathy, metabolic (Acute) Acute respiratory failure with hypoxia (Acute) Debility (Acute) Herpes zoster (Acute) Pressure ulcer of left buttock, stage 1 (Resolved) Pressure ulcer of right buttock, stage 1 (Resolved) Patient is an 79-year-old gentleman with history of dementia admitted progressive generalized weakness fatigue cough and dyspnea. His assessment was consistent with with COVID-19 pneumonitis 1. COVID-19 pneumonia ?Did receive a dose of remdesivir, currently on Decadron and supplemental oxygen 2. Coronary artery disease ?With previous PCI currently asymptomatic 3. History of previous CVA ?Patient is on statin therapy as well as systemic anticoagulation with Xarelto in view of his underlying paroxysmal A. fib 4. Diabetes mellitus type 2 ?Patient oral agents held please on Accu-Cheks before meals and at bedtime with sliding scale coverage 5. Hypertension - Blood pressure controlled, home medications continued with dose adjustment as needed 6. Dyslipidemia -Patient is on statin therapy, continued at home dose 7. Alzheimer's dementia with behavioral agitation ?Pressure stated by patient acute COVID-19 infection 8. Obstructive sleep apnea ?On BiPAP at night 10. GERD on PPI 11. Paroxysmal A. fib ?Rate controlled on systemic anticoagulation with Xarelto did continue 12. DVT prophylaxis ?On Xarelto Inpatient E&M: [id number] Subs Hosp L2
[2020-01-13 10:45] VITALS: BP 117/75; PULSE 62; RESP 18; TEMP 36.7; O2SAT 94
[2020-01-13] MEDS: dexAMETHasone 10 MG/ML Vial 6 MG IV (10:58)
[2020-01-13] MEDS: 0.9% Saline Lock 10 ML Syringe IV ×2 (10:59→22:45)
[2020-01-13] MEDS: Menthol/Lanolin/Calamine/Znox 113 GM Tube 1 APPLIC TOPICAL ×2 (10:59→22:41)
--- NOTE | 2020-01-13 11:06 | CASEMGMT ---
Addendum entered by Marilyn Gibson 01/13/20 16:21: SW called [facility], message left. SW called daughter Melinda, let her know have not heard back from [facility], will follow up tomorrow. DOMINIC Lopez Addendum entered by Marilyn Gibson 01/13/20 13:22: SW spoke again w/daughter. Their family made some calls and [facility] can consider pt since he was diagnosed 10+ days ago. SW called [facility], spoke w/[facility], referral faxed. SW will continue to follow. DOMINIC Lopez Original Note: SW spoke w/pt's daughter Melinda in regard to discharge plan. She and pt's daughter are considering SNF but are trying to figure out which one. SW emailed her the list of facilities accepting pt w/COVID, she will let this SW know what they decide and SW will send referral accordingly. DOMINIC Lopez
[2020-01-13 11:20] LABS: Bedside Glucose 191 mg/dL (70-110)
--- NOTE | 2020-01-13 13:14 | PN.ID_ITS ---
Patient Problems: Active and Suspected Problems (Last Reviewed 01/08/20 @ 19:[address] Robel Kulkarni, DO) COVID-19 (Acute) Encephalopathy, metabolic (Acute) Acute respiratory failure with hypoxia (Acute) Debility (Acute) Herpes zoster (Acute) Subjective: No fever, no events overnight - Physical Exam Vitals/I&O's: Vital Signs Temp Pulse Resp BP Pulse Ox 98.0 F 62 18 117/75 94 01/13/20 10:45 01/13/20 10:45 01/13/20 10:45 01/13/20 10:45 01/13/20 10:45 Oxygen Flow Rate (L/min) 2 Oxygen Delivery Method Nasal Cannula Weight: 95.3 kg Body Mass Index (BMI) 28.8 Finger Stick Blood Glucose 160 Intake and Output for Last 24 Hours 01/11/20 01/12/20 01/13/20 23:59 23:59 23:59 Intake Total 790 / 890 700 / 800 200 / 200 Balance 790 / 890 700 / 800 200 / 200 General: Lethargic, Non-Cooperative Lungs: Clear to auscultation, Diminished Cardiovascular: Regular rate, Regular Rhythm Abdomen: Soft, Non Tender, Non-Distended Skin: No rashes Laboratory Results 01/12/20 11:27: POC Glucose 193 H 01/12/20 16:00: POC Glucose 333 H 01/12/20 21:49: POC Glucose 284 H 01/13/20 05:51: POC Glucose 203 H 01/13/20 06:06: WBC 4.9, RBC 4.39 L, Hgb 13.5, Hct 44.6, MCV 101.6 H D, MCH 30.8, MCHC 30.3 L D, RDW Std Deviation 46.4 H, RDW Coeff of Az 12.3, Plt Count 265, MPV 8.7, Immature Gran % (Auto) 2.500 H, Neut % (Auto) 65.3, Lymph % (Auto) 21.2, Redwood % (Auto) 8.2, Eos % (Auto) 1.4, Baso % (Auto) 1.4 H, Absolute Neuts (auto) 3.2, Absolute Lymphs (auto) 1.03, Nucleated RBC % 0 01/13/20 06:06: Sodium 141, Potassium 4.1, Chloride 110 H, Carbon Dioxide 21.0, Anion Gap 10, BUN 30 H, Creatinine 0.91, Estim Creat Clear Calc 74.02, Est GFR (MDRD) Af Amer 103, Est GFR (MDRD) Non-Af 85, BUN/Creatinine Ratio 33.1 H, Glucose 196 H, Calcium 8.3 L, Total Bilirubin 0.70, AST 24, ALT 38, Alkaline Phosphatase 78, Total Protein 6.3 L, Albumin 3.0 L, Globulin 3.3, Albumin/Globulin Ratio 0.9 01/13/20 11:10: POC Glucose 191 H Current Medications Acetaminophen (Acetaminophen 500 Mg Tablet) 1,000 mg PO Q6H PRN PRN PRN Reason: Pain Score 1-10 Albuterol Sulfate (Albuterol Ih 8.5 Gm (Proair) Inhaler (200 Puffs)) 4 - 8 puff INHALATION Q4H PRN PRN PRN Reason: Dyspnea, wheezing Aspirin (Aspirin E.C. 81 Mg Tablet) 81 mg PO QHS [facility] Last Admin: 01/12/20 21:32 Dose: 81 mg Documented by: Atorvastatin Calcium (Atorvastatin Calcium 40 Mg Tablet) 40 mg PO QHS [facility] Last Admin: 01/12/20 21:32 Dose: 40 mg Documented by: Calamine/Phenol (Menthol/Lanolin/Calamine/Znox 113 Gm Tube) 1 applic TOPICAL BID [facility]; Protocol Last Admin: 01/13/20 10:59 Dose: 1 applic Documented by: Dexamethasone Sodium Phosphate (Dexamethasone 10 Mg/Ml Vial) 6 mg IV DAILY [facility] Stop: 01/18/20 10:01 Last Admin: 01/13/20 10:58 Dose: 6 mg Documented by: Dextrose (Dextrose 50%-Water 25 Gm/50 Ml Disp.Syrin) 0 gm IV X1 PRN; Protocol PRN Reason: Hypoglycemia Docusate Sodium (Docusate Sodium 100 Mg Capsule) 100 mg PO DAILY [facility] Last Admin: 01/13/20 10:56 Dose: Not Given Documented by: Glucagon (Glucagon 1 Mg/Ml Syringe) 1 mg IM .X1 PRN PRN Reason: Hypoglycemia Haloperidol Lactate (Haloperidol Lactate 5 Mg/Ml Vial) 1 mg IM Q4H PRN PRN PRN Reason: uncontrollable anxiety Hydralazine HCl (Hydralazine 20 Mg/Ml Vial) 10 mg IV Q4H PRN PRN PRN Reason: SBP > 160 Sodium Chloride () 250 mls @ 15 mls/hr IV .[id number] PRN PRN Reason: Saline Flush Last Infusion: 01/09/20 14:22 Dose: Infused Documented by: Sodium Chloride () 250 mls @ 15 mls/hr IV .[id number] PRN PRN Reason: Additional IVPB Infusion Insulin Glargine (Insulin Glargine 100 Units/Ml Pen) 10 units SC BREAKFAST [facility] Last Admin: 01/13/20 10:54 Dose: Not Given Documented by: Insulin Human Lispro (Insulin Lispro 100 Unit/Ml Insuln.Pen) 0 unit SC ACHS [facility]; Protocol Last Admin: 01/13/20 11:11 Dose: 2 u Documented by: Lamotrigine (Lamotrigine 150 Mg Tablet) 150 mg PO BID [facility] Last Admin: 01/12/20 21:32 Dose: 150 mg Documented by: Metoprolol Tartrate (Metoprolol Tartrate 25 Mg Tablet) 25 mg PO BID [facility] Last Admin: 01/12/20 21:37 Dose: Not Given Documented by: Mirtazapine (Mirtazapine 15 Mg Tablet) 15 mg PO QHS [facility] Last Admin: 01/12/20 21:43 Dose: 15 mg Documented by: Multivitamins (Multivitamins,Therapeutic Tablet) 1 tablet PO DAILY [facility] Last Admin: 01/13/20 10:57 Dose: Not Given Documented by: Nitroglycerin (Nitroglycerin (Inpatient Use) 0.4 Mg Tab.Subl) 0.4 mg SUBLINGUAL Q5M PRN PRN Reason: Angina Ondansetron HCl (Ondansetron Odt 4 Mg Tablet) 4 mg PO Q8H PRN PRN PRN Reason: NAUSEA Pantoprazole Sodium (Pantoprazole Sodium 40 Mg Tablet) 40 mg PO DAILY [facility] Last Admin: 01/13/20 10:57 Dose: Not Given Documented by: Polyethylene Glycol (Polyethylene Glycol 3350 17 Gm Packet) 17 gm PO DAILY [facility] Last Admin: 01/13/20 10:56 Dose: Not Given Documented by: Ranolazine (Ranolazine 500 Mg Tablet) 500 mg PO BID [facility] Last Admin: 01/13/20 10:57 Dose: Not Given Documented by: Rivaroxaban (Rivaroxaban 20 Mg Tablet) 20 mg PO DAILY [facility] Last Admin: 01/12/20 09:35 Dose: Not Given Documented by: Sodium Chloride (0.9% Saline Lock 10 Ml Syringe) 10 - 40 ml IV UD PRN PRN Reason: SALINE FLUSH Last Admin: 01/13/20 10:59 Dose: 10 ml Documented by: Tramadol HCl (Tramadol 50 Mg Tablet) 100 mg PO Q4H PRN PRN Reason: Pain Score 4-10 Medical Necessity - Tobacco Use Smoking Status: Never smoker Route of nutrition/ use of supplements: [] Nutritional Intake: [] IV Site: [] Ashley Catheter: [] - Assessment/Plan Antibiotics: [] Assessment/Plan: [] Active and Suspected Problems (Last Reviewed 01/08/20 @ 19:[address] Robel Kulkarni, DO) COVID-19 (Acute) Encephalopathy, metabolic (Acute) Acute respiratory failure with hypoxia (Acute) Debility (Acute) Herpes zoster (Acute) Sx started 12/29/19, covid with encephalopathy. On dex, completed remdesivir, on xarelto. Got plasma 01/09/20. Sleeping this AM. No fever, on 2L, improved. Will follow
[2020-01-13 14:13] VITALS: O2SAT 94
[2020-01-13 14:39] VITALS: BP 117/76; PULSE 62; RESP 16; TEMP 36.1; O2SAT 92
[2020-01-13 16:35] LABS: Bedside Glucose 272 mg/dL (70-110)
[2020-01-13 22:00] VITALS: RESP 22
[2020-01-13 22:19] VITALS: BP 142/97; PULSE 72; RESP 24; O2SAT 94
[2020-01-13] MEDS: Acetaminophen 500 MG Tablet 1000 MG PO (22:21)
[2020-01-14] VITALS (10 sets, daily range): BP systolic 100–127; BP diastolic 69–87; PULSE 64–83; RESP 18; TEMP 35.7–36.9; O2SAT 92–94
[2020-01-14] LABS: Bedside Glucose 219 mg/dL (70-110)
[2020-01-14 07:21] LABS: Absolute Lymphocyte Count 1.14 X10^3/uL (0.83-4.51); Absolute Neutrophil Count 6.1 X10^3/uL (2.0-7.7); Basophil# 0.02 X10^3/uL; Basophil% 0.2 % (0-1); Eosinophil# 0.09 X10^3/uL; Eosinophils% 1.1 % (0-5); Hematocrit 41.1 % (40-54); Hemoglobin 13.4 g/dL (13.0-16.5); Lymphocyte # 1.14 X10^3/ul (4.0); Lymphocyte % 13.7 % (19-41); Mean Corp Hgb Conc 32.6 g/dL (32-36); Mean Corpuscular Hgb 30.6 pg (27.0-32.0); Mean Corpuscular Volume 93.8 fL (80-94); Mean Platelet Vol. 8.8 fl (6.2-12.0); Monocyte# 0.83 X10^3/uL; Monocyte% 9.9 % (0-10); NRBC Flagged by Analyzer 0 % (0-5); Neutrophil % 73.1 % (47-70); Platelet Count 353 K/mm3 (150-450); RBC Distribution Width CV 12.2 % (11.6-14.6); RBC Distribution Width SD 42.2 fl (35.1-43.9); Red Blood Count 4.38 M/mm3 (4.6-6.2); White Blood Count 8.4 K/mm3 (4.4-11.0)
--- NOTE | 2020-01-14 07:23 | PN_ITS ---
Patient Problems: Active and Suspected Problems (Last Reviewed 01/08/20 @ 19:[address] Robel Kulkarni, DO) COVID-19 (Acute) Encephalopathy, metabolic (Acute) Acute respiratory failure with hypoxia (Acute) Debility (Acute) Herpes zoster (Acute) Reason for Visit: Acute COVID-19 pneumonitis Subjective: Patient is an 79-year-old gentleman with history of dementia admitted progressive generalized weakness fatigue cough and dyspnea. His assessment was consistent with with COVID-19 pneumonitis -01/14/2020; patient seen remains significantly lethargic per nursing staff not eating or drinking much subsequently started on IV fluids Objective: GENERAL: Lethargic HEENT: Atraumatic; EYES; Anicteric, Normal Conjunctiva NECK; supple, normal thyroid, RESPIRATORY: Diminished to auscultation CARDIOVASCULAR: Regular S1 S2, GI: soft, normoactive bowel sounds, : No Renal angle tenderness; EXTREMITIES: No edema, no clubbing, MUSCULOSKELETAL: no muscle waisting NEURO: no lateralizing signs. SKIN: No Rash PSYCH; Flat affect Vitals/I&O's: Vital Signs Temp Pulse Resp BP Pulse Ox 96.7 F L 64 18 127/87 H 92 01/14/20 03:00 01/14/20 03:00 01/14/20 03:37 01/14/20 03:00 01/14/20 03:00 Oxygen Flow Rate (L/min) 2 Oxygen Delivery Method Nasal Cannula Weight: 93.2 kg Body Mass Index (BMI) 28.8 Finger Stick Blood Glucose 160 Intake and Output for Last 24 Hours 01/12/20 01/13/20 01/14/20 23:59 23:59 23:59 Intake Total 700 / 800 320 / 320 Balance 700 / 800 320 / 320 Laboratory Results 01/13/20 11:10: POC Glucose 191 H 01/13/20 16:13: POC Glucose 272 H 01/13/20 22:46: POC Glucose 219 H 01/14/20 06:30: WBC Pending, RBC Pending, Hgb Pending, Hct Pending, MCV Pending, MCH Pending, MCHC Pending, RDW Std Deviation Pending, RDW Coeff of Az Pending, Plt Count Pending, Neut % (Auto) Pending, Absolute Neuts (auto) Pending 01/14/20 06:30: Sodium Pending, Potassium Pending, Chloride Pending, Carbon Dioxide Pending, Anion Gap Pending, BUN Pending, Creatinine Pending, Est GFR (MDRD) Af Amer Pending, Est GFR (MDRD) Non-Af Pending, BUN/Creatinine Ratio Pending, Glucose Pending, Calcium Pending, Magnesium Pending, Total Bilirubin Pending, AST Pending, ALT Pending, Alkaline Phosphatase Pending, Total Protein Pending, Albumin Pending Current Medications Acetaminophen (Acetaminophen 500 Mg Tablet) 1,000 mg PO Q6H PRN PRN PRN Reason: Pain Score 1-10 Last Admin: 01/13/20 22:21 Dose: 1,000 mg Documented by: Albuterol Sulfate (Albuterol Ih 8.5 Gm (Proair) Inhaler (200 Puffs)) 4 - 8 puff INHALATION Q4H PRN PRN PRN Reason: Dyspnea, wheezing Aspirin (Aspirin E.C. 81 Mg Tablet) 81 mg PO QHS [facility] Last Admin: 01/13/20 22:42 Dose: Not Given Documented by: Atorvastatin Calcium (Atorvastatin Calcium 40 Mg Tablet) 40 mg PO QHS [facility] Last Admin: 01/13/20 22:41 Dose: Not Given Documented by: Calamine/Phenol (Menthol/Lanolin/Calamine/Znox 113 Gm Tube) 1 applic TOPICAL BI D [facility]; Protocol Last Admin: 01/13/20 22:41 Dose: 1 applic Documented by: Dexamethasone Sodium Phosphate (Dexamethasone 10 Mg/Ml Vial) 6 mg IV DAILY [facility] Stop: 01/18/20 10:01 Last Admin: 01/13/20 10:58 Dose: 6 mg Documented by: Dextrose (Dextrose 50%-Water 25 Gm/50 Ml Disp.Syrin) 0 gm IV X1 PRN; Protocol PRN Reason: Hypoglycemia Docusate Sodium (Docusate Sodium 100 Mg Capsule) 100 mg PO DAILY [facility] Last Admin: 01/13/20 10:56 Dose: Not Given Documented by: Glucagon (Glucagon 1 Mg/Ml Syringe) 1 mg IM .X1 PRN PRN Reason: Hypoglycemia Haloperidol Lactate (Haloperidol Lactate 5 Mg/Ml Vial) 1 mg IM Q4H PRN PRN PRN Reason: uncontrollable anxiety Hydralazine HCl (Hydralazine 20 Mg/Ml Vial) 10 mg IV Q4H PRN PRN PRN Reason: SBP > 160 Sodium Chloride () 250 mls @ 15 mls/hr IV .[id number] PRN PRN Reason: Saline Flush Last Infusion: 01/09/20 14:22 Dose: Infused Documented by: Sodium Chloride () 250 mls @ 15 mls/hr IV .[id number] PRN PRN Reason: Additional IVPB Infusion Insulin Glargine (Insulin Glargine 100 Units/Ml Pen) 10 units SC BREAKFAST [facility] Last Admin: 01/13/20 10:54 Dose: Not Given Documented by: Insulin Human Lispro (Insulin Lispro 100 Unit/Ml Insuln.Pen) 0 unit SC ACHS [facility]; Protocol Last Admin: 01/13/20 22:47 Dose: 2 u Documented by: Lamotrigine (Lamotrigine 150 Mg Tablet) 150 mg PO BID [facility] Last Admin: 01/13/20 22:41 Dose: Not Given Documented by: Metoprolol Tartrate (Metoprolol Tartrate 25 Mg Tablet) 25 mg PO BID [facility] Last Admin: 01/13/20 22:41 Dose: Not Given Documented by: Mirtazapine (Mirtazapine 15 Mg Tablet) 15 mg PO QHS [facility] Last Admin: 01/13/20 22:40 Dose: Not Given Documented by: Multivitamins (Multivitamins,Therapeutic Tablet) 1 tablet PO DAILY [facility] Last Admin: 01/13/20 10:57 Dose: Not Given Documented by: Nitroglycerin (Nitroglycerin (Inpatient Use) 0.4 Mg Tab.Subl) 0.4 mg SUBLINGUAL Q5M PRN PRN Reason: Angina Ondansetron HCl (Ondansetron Odt 4 Mg Tablet) 4 mg PO Q8H PRN PRN PRN Reason: NAUSEA Pantoprazole Sodium (Pantoprazole Sodium 40 Mg Tablet) 40 mg PO DAILY [facility] Last Admin: 01/13/20 10:57 Dose: Not Given Documented by: Polyethylene Glycol (Polyethylene Glycol 3350 17 Gm Packet) 17 gm PO DAILY [facility] Last Admin: 01/13/20 10:56 Dose: Not Given Documented by: Ranolazine (Ranolazine 500 Mg Tablet) 500 mg PO BID [facility] Last Admin: 01/13/20 22:40 Dose: Not Given Documented by: Rivaroxaban (Rivaroxaban 20 Mg Tablet) 20 mg PO DAILY [facility] Last Admin: 01/13/20 15:31 Dose: Not Given Documented by: Sodium Chloride (0.9% Saline Lock 10 Ml Syringe) 10 - 40 ml IV UD PRN PRN Reason: SALINE FLUSH Last Admin: 01/13/20 22:45 Dose: 10 ml Documented by: Tramadol HCl (Tramadol 50 Mg Tablet) 100 mg PO Q4H PRN PRN Reason: Pain Score 4-10 STROKE Vital Signs/Narrative: Vital Signs Resp 01/14/20 03:37 18 Medical Necessity - Tobacco Use Smoking Status: Never smoker Assessment/Plan All Active Problems (Last Reviewed 01/08/20 @ 19:[address] Robel Kulkarni, DO) COVID-19 (Acute) Encephalopathy, metabolic (Acute) Acute respiratory failure with hypoxia (Acute) Debility (Acute) Herpes zoster (Acute) Pressure ulcer of left buttock, stage 1 (Resolved) Pressure ulcer of right buttock, stage 1 (Resolved) Patient is an 79-year-old gentleman with history of dementia admitted progressive generalized weakness fatigue cough and dyspnea. His assessment was consistent with with COVID-19 pneumonitis 1. COVID-19 pneumonia ?Did receive a dose of remdesivir, currently on Decadron and supplemental oxygen -01/14/2020; patient seen remains significantly lethargic per nursing staff not eating or drinking much subsequently started on IV fluids 2. Coronary artery disease ?With previous PCI currently asymptomatic 3. History of previous CVA ?Patient is on statin therapy as well as systemic anticoagulation with Xarelto in view of his underlying paroxysmal A. fib 4. Diabetes mellitus type 2 ?Patient oral agents held please on Accu-Cheks before meals and at bedtime with sliding scale coverage 5. Hypertension - Blood pressure controlled, home medications continued with dose adjustment as needed 6. Dyslipidemia -Patient is on statin therapy, continued at home dose 7. Alzheimer's dementia with behavioral agitation ?Pressure stated by patient acute COVID-19 infection 8. Obstructive sleep apnea ?On BiPAP at night 10. GERD on PPI 11. Paroxysmal A. fib ?Rate controlled on systemic anticoagulation with Xarelto did continue 12. DVT prophylaxis ?On Xarelto Inpatient E&M: 56404 Subs Hosp L2
[2020-01-14 07:59] LABS: ALB/GLOB Ratio 0.8 RATIO (0.9-2.4); AST(SGOT) 18 U/L (15-37); Alanine Aminotransfer ALT/SGPT 34 U/L (16-61); Alkaline Phosphatase 85 U/L (45-117); Anion Gap 5 (5-15); BUN 27 mg/dL (7-18); BUN/Creat Ratio 26.2 RATIO (10-20); Calcium,Total 9.3 mg/dL (8.5-10.1); Chloride 110 mmol/L (98-107); Creatinine, Serum 1.03 mg/dL (0.70-1.30); EST Glomerular Filtration Rate 74 mL/min (>60); Est Glom Filt Rate - Afr Amer 89 mL/min (>60); Glucose 188 mg/dL (74-106); Magnesium 2.2 mg/dL (1.6-2.6); Potassium 4.5 mmol/L (3.5-5.1); Sodium Level 141 mmol/L (136-145)
--- NOTE | 2020-01-14 09:06 | CASEMGMT ---
Addendum entered by Marilyn Gibson 01/14/20 10:47: SW received a message back from Letty that she has not seen the referral. SW left her a message back and faxed the referral. SW will continue to follow. DOMINIC Lopez Original Note: DARREN called [facility], left Letty a message. DOMINIC Lopez
[2020-01-14] MEDS: Menthol/Lanolin/Calamine/Znox 113 GM Tube 1 APPLIC TOPICAL ×2 (09:45→22:50)
[2020-01-14] MEDS: dexAMETHasone 10 MG/ML Vial 6 MG IV (09:48)
[2020-01-14] MEDS: 0.9% Saline Lock 10 ML Syringe IV ×2 (09:49→16:01)
[2020-01-14] MEDS: Insulin Lispro 100 UNIT/ML INSULN.PEN SC ×3 (13:25→22:50)
--- NOTE | 2020-01-14 13:27 | CASEMGMT ---
Addendum entered by Marilyn Gibson 01/14/20 14:36: SW spoke w/Melinda and Jaylyn, pt's daughters, on phone. They are thinking to possibly bring pt home and if pt still needs [facility] to bring him from home to [facility]. SW explained will check with the [place] [facility] to see how to do that. Family was also asking how pt is doing. SW checked w/RN, pt is not eating or drinking much today, has not taken meds. SW explained this to family, and explained will call physician to check on discharge date. SW called [facility], spoke w/Gin([phone]), she states they could likely admit pt from home, she can do the PASRR, and pt would be covered by Medicare if pt came to [facility] within 30 days of discharge from hospital. SW called Dr. Sanon, he states pt is not ready for discharge today, maybe tomorrow. SW called Melinda and Jaylyn back, let them know if they take pt home and if he needs to still go to SNF if they cannot manage at home, to call Gin at [facility], gave them Gin's number. SW explained she can help facilitate the process from home and if pt goes to SNF within 30 days of hospital admission he is covered by Medicare. SW explained Gin can do the needed paperwork. SW also explained spoke w/Dr. Sanon and he states pt is not ready for discharge today, maybe tomorrow. Family states understanding. Melinda asked about getting pt home, if transport would be covered. SW called [facility], they state that based on the fact that pt has Alzheimer's dementia and is not alert and oriented, transport should be covered by Medicare to go home. SW let Jaylyn and Melinda know that as per [facility] pt should be covered by Medicare for ambulance to go home. SW did explain this is not a guarantee, but is what the automobile rental representative at [facility] states. Both state understanding. Daughter Melinda asked for RN to call her, SW passed the message on to the RN. Plan: Possibly home w/family, SW to follow up w/Melinda tomorrow. DOMINIC Lopez Original Note: SW spoke leon/Gin from [facility], they cannot take pt until he is 20 days out from a positive test. She states that they could take pt possibly in their sister facility, [facility], in [place] and could transfer pt once pt is 20 days out from the initial positive test. DARREN called daughter Melinda, explained [facility] cannot take pt until he is 20 days out from a positive test. DARREN explained to Melinda about [facility], pt could go there and then transfer to [facility] when he is 20 days out from a positive test. DARREN also explained that [facility] may be options as well. Melinda to speak w/pt's other daughter and call this SW back. DOMINIC Lopez
[2020-01-14 13:31] LABS: Bedside Glucose 241 mg/dL (70-110)
--- NOTE | 2020-01-14 16:27 | NURSING ---
THERAPY MENTIONED TO THIS NURSE THAT WITH MOVEMENT, PT WAS HOLDING LT HAND TO SIDE OF HEAD, GRIMACING AND SAYING OWW. IT WAS REPORTED TO THIS NURSE THAT PT WAS DOING THIS DURING THE NIGHT WELL AND TYLENOL DID SEEM TO HELP. DR LIEBERMAN WAS NOTIFIED OF ABOVE. NO NEW ORDERS AT THIS TIME
[2020-01-14] MEDS: Acetaminophen 650 MG/20 ML UDC PO (17:26)
[2020-01-14 17:51] LABS: Bedside Glucose 263 mg/dL (70-110)
[2020-01-14 23:20] LABS: Bedside Glucose 255 mg/dL (70-110)
[2020-01-15 04:48] VITALS: BP 146/80; PULSE 70; RESP 18; TEMP 36.7; O2SAT 96
[2020-01-15] MEDS: Insulin Lispro 100 UNIT/ML INSULN.PEN SC ×2 (05:06→11:25)
[2020-01-15 05:21] LABS: Bedside Glucose 269 mg/dL (70-110)
[2020-01-15 06:10] LABS: Absolute Lymphocyte Count 0.91 X10^3/uL (0.83-4.51); Absolute Neutrophil Count 6.6 X10^3/uL (2.0-7.7); Basophil# 0.03 X10^3/uL; Basophil% 0.3 % (0-1); Eosinophil# 0.04 X10^3/uL; Eosinophils% 0.5 % (0-5); Hematocrit 42.5 % (40-54); Hemoglobin 13.9 g/dL (13.0-16.5); Lymphocyte # 0.91 X10^3/ul (4.0); Lymphocyte % 10.6 % (19-41); Mean Corp Hgb Conc 32.7 g/dL (32-36); Mean Corpuscular Hgb 30.3 pg (27.0-32.0); Mean Corpuscular Volume 92.8 fL (80-94); Mean Platelet Vol. 8.9 fl (6.2-12.0); Monocyte# 0.88 X10^3/uL; Monocyte% 10.2 % (0-10); NRBC Flagged by Analyzer 0 % (0-5); Neutrophil # 6.62 X10^3/uL (2.7-7.7); Neutrophil % 76.9 % (47-70); Platelet Count 349 K/mm3 (150-450); RBC Distribution Width CV 12.5 % (11.6-14.6); RBC Distribution Width SD 42.3 fl (35.1-43.9); Red Blood Count 4.58 M/mm3 (4.6-6.2); White Blood Count 8.6 K/mm3 (4.4-11.0)
[2020-01-15 06:55] LABS: ALB/GLOB Ratio 0.9 RATIO (0.9-2.4); AST(SGOT) 24 U/L (15-37); Alanine Aminotransfer ALT/SGPT 31 U/L (16-61); Alkaline Phosphatase 86 U/L (45-117); Anion Gap 9 (5-15); BUN 27 mg/dL (7-18); BUN/Creat Ratio 31.5 RATIO (10-20); Calcium,Total 8.6 mg/dL (8.5-10.1); Chloride 107 mmol/L (98-107); Creatinine, Serum 0.86 mg/dL (0.70-1.30); EST Glomerular Filtration Rate 91 mL/min (>60); Est Glom Filt Rate - Afr Amer 110 mL/min (>60); Estimated Creatinine Clearance 78.32 ml/min; Globulin 3.4 g/dL (2.2-4.2); Glucose 252 mg/dL (74-106); Potassium 4.5 mmol/L (3.5-5.1); Protein, Total 6.4 g/dL (6.4-8.2); Sodium Level 138 mmol/L (136-145)
[2020-01-15] MEDS: 0.9% Saline Lock 10 ML Syringe IV (07:08)
--- NOTE | 2020-01-15 07:48 | PN_ITS ---
Patient Problems: Active and Suspected Problems (Last Reviewed 01/08/20 @ 19:[address] Robel Kulkarni, DO) COVID-19 (Acute) Encephalopathy, metabolic (Acute) Acute respiratory failure with hypoxia (Acute) Debility (Acute) Herpes zoster (Acute) Reason for Visit: Acute COVID-19 pneumonitis Subjective: Pain significantly lethargic apparently refused to eat the day prior was started on IV fluid. Per nursing staff IV fluids infiltrated Had a discussion with patient's daughter regarding his overall condition. Plan is for patient to be discharged home with home health. Objective: GENERAL: Lethargic HEENT: Atraumatic; EYES; Anicteric, Normal Conjunctiva NECK; supple, normal thyroid, RESPIRATORY: Diminished to auscultation CARDIOVASCULAR: Regular S1 S2, GI: soft, normoactive bowel sounds, : No Renal angle tenderness; EXTREMITIES: No edema, no clubbing, MUSCULOSKELETAL: no muscle waisting NEURO: no lateralizing signs. SKIN: No Rash PSYCH; Flat affect Vitals/I&O's: Vital Signs Temp Pulse Resp BP Pulse Ox 98.0 F 70 18 146/80 H 96 01/15/20 04:48 01/15/20 04:48 01/15/20 04:48 01/15/20 04:48 01/15/20 04:48 Oxygen Flow Rate (L/min) 2 Oxygen Delivery Method Room Air Weight: 93.2 kg Body Mass Index (BMI) 28.8 Finger Stick Blood Glucose 160 Intake and Output for Last 24 Hours 01/13/20 01/14/20 01/15/20 23:59 23:59 23:59 Intake Total 320 / 320 946.25 / 946.25 Balance 320 / 320 946.25 / 946.25 Laboratory Results 01/14/20 06:30: Sodium 141, Potassium 4.5, Chloride 110 H, Carbon Dioxide 26.0, Anion Gap 5, BUN 27 H, Creatinine 1.03, Estim Creat Clear Calc 65.40, Est GFR (MDRD) Af Amer 89, Est GFR (MDRD) Non-Af 74, BUN/Creatinine Ratio 26.2 H, Glucose 188 H, Calcium 9.3, Magnesium 2.2, Total Bilirubin 0.80, AST 18, ALT 34, Alkaline Phosphatase 85, Total Protein 7.0, Albumin 3.0 L, Globulin 4.0, Albumin/Globulin Ratio 0.8 L 01/14/20 13:17: POC Glucose 241 H 01/14/20 17:24: POC Glucose 263 H 01/14/20 22:38: POC Glucose 255 H 01/15/20 05:02: POC Glucose 269 H 01/15/20 05:08: WBC 8.6, RBC 4.58 L, Hgb 13.9, Hct 42.5, MCV 92.8, MCH 30.3, MCHC 32.7, RDW Std Deviation 42.3, RDW Coeff of Az 12.5, Plt Count 349, MPV 8.9, Immature Gran % (Auto) 1.500 H, Neut % (Auto) 76.9 H, Lymph % (Auto) 10.6 L , [place] % (Auto) 10.2 H, Eos % (Auto) 0.5, Baso % (Auto) 0.3, Absolute Neuts (auto) 6.6, Absolute Lymphs (auto) 0.91, Nucleated RBC % 0 01/15/20 05:08: Sodium 138, Potassium 4.5, Chloride 107, Carbon Dioxide 22.0, An ion Gap 9, BUN 27 H, Creatinine 0.86, Estim Creat Clear Calc 78.32, Est GFR (MDRD) Af Amer 110, Est GFR (MDRD) Non-Af 91, BUN/Creatinine Ratio 31.5 H, Glucose 252 H, Calcium 8.6, Total Bilirubin 0.90, AST 24, ALT 31, Alkaline Phosphatase 86, Total Protein 6.4, Albumin 3.0 L, Globulin 3.4, Albumin/Globulin Ratio 0.9 Current Medications Acetaminophen (Acetaminophen 650 Mg/20 Ml Udc) 650 mg PO Q4H PRN PRN PRN Reason: HEADACHE Last Admin: 01/14/20 17:26 Dose: 650 mg Documented by: Acetaminophen (Acetaminophen 650 Mg Suppository) 650 mg RECTAL Q4H PRN PRN PRN Reason: HEADACHE Albuterol Sulfate (Albuterol Ih 8.5 Gm (Proair) Inhaler (200 Puffs)) 4 - 8 puff INHALATION Q4H PRN PRN PRN Reason: Dyspnea, wheezing Aspirin (Aspirin E.C. 81 Mg Tablet) 81 mg PO QHS DAGO Last Admin: 01/14/20 22:58 Dose: Not Given Documented by: Atorvastatin Calcium (Atorvastatin Calcium 40 Mg Tablet) 40 mg PO QHS [facility] Last Admin: 01/14/20 22:58 Dose: Not Given Documented by: Calamine/Phenol (Menthol/Lanolin/Calamine/Znox 113 Gm Tube) 1 applic TOPICAL BID [facility]; Protocol Last Admin: 01/14/20 22:50 Dose: 1 applic Documented by: Dexamethasone Sodium Phosphate (Dexamethasone 10 Mg/Ml Vial) 6 mg IV DAILY [facility] Stop: 01/18/20 10:01 Last Admin: 01/14/20 09:48 Dose: 6 mg Documented by: Dextrose (Dextrose 50%-Water 25 Gm/50 Ml Disp.Syrin) 0 gm IV X1 PRN; Protocol PRN Reason: Hypoglycemia Docusate Sodium (Docusate Sodium 100 Mg Capsule) 100 mg PO DAILY [facility] Last Admin: 01/14/20 10:49 Dose: Not Given Documented by: Glucagon (Glucagon 1 Mg/Ml Syringe) 1 mg IM .X1 PRN PRN Reason: Hypoglycemia Haloperidol Lactate (Haloperidol Lactate 5 Mg/Ml Vial) 1 mg IM Q4H PRN PRN PRN Reason: uncontrollable anxiety Hydralazine HCl (Hydralazine 20 Mg/Ml Vial) 10 mg IV Q4H PRN PRN PRN Reason: SBP > 160 Sodium Chloride () 250 mls @ 15 mls/hr IV .[id number] PRN PRN Reason: Saline Flush Last Infusion: 01/09/20 14:22 Dose: Infused Documented by: Sodium Chloride () 250 mls @ 15 mls/hr IV .[id number] PRN PRN Reason: Additional IVPB Infusion Potassium Chloride 20 meq/ (Dextrose) 1,010 mls @ 75 mls/hr IV .[id number] [facility] Last Admin: 01/15/20 04:36 Dose: 75 mls/hr Documented by: Insulin Human Lispro (Insulin Lispro 100 Unit/Ml Insuln.Pen) 0 unit SC ACHS [facility]; Protocol Last Admin: 01/15/20 05:06 Dose: 3 u Documented by: Lamotrigine (Lamotrigine 150 Mg Tablet) 150 mg PO BID [facility] Last Admin: 01/14/20 22:58 Dose: Not Given Documented by: Metoprolol Tartrate (Metoprolol Tartrate 25 Mg Tablet) 25 mg PO BID [facility] Last Admin: 01/14/20 22:58 Dose: Not Given Documented by: Mirtazapine (Mirtazapine 15 Mg Tablet) 15 mg PO QHS [facility] Last Admin: 01/14/20 22:59 Dose: Not Given Documented by: Multivitamins (Multivitamins,Therapeutic Tablet) 1 tablet PO DAILY [facility] Last Admin: 01/14/20 10:49 Dose: Not Given Documented by: Nitroglycerin (Nitroglycerin (Inpatient Use) 0.4 Mg Tab.Subl) 0.4 mg SUBLINGUAL Q5M PRN PRN Reason: Angina Ondansetron HCl (Ondansetron Odt 4 Mg Tablet) 4 mg PO Q8H PRN PRN PRN Reason: NAUSEA Pantoprazole Sodium (Pantoprazole Sodium 40 Mg Tablet) 40 mg PO DAILY [facility] Last Admin: 01/14/20 10:49 Dose: Not Given Documented by: Polyethylene Glycol (Polyethylene Glycol 3350 17 Gm Packet) 17 gm PO DAILY [facility] Last Admin: 01/14/20 10:49 Dose: Not Given Documented by: Ranolazine (Ranolazine 500 Mg Tablet) 500 mg PO BID [facility] Last Admin: 01/14/20 22:59 Dose: Not Given Documented by: Rivaroxaban (Rivaroxaban 20 Mg Tablet) 20 mg PO DAILY [facility] Last Admin: 01/14/20 10:50 Dose: Not Given Documented by: Sodium Chloride (0.9% Saline Lock 10 Ml Syringe) 10 - 40 ml IV UD PRN PRN Reason: SALINE FLUSH Last Admin: 01/15/20 07:08 Dose: 10 ml Documented by: Tramadol HCl (Tramadol 50 Mg Tablet) 100 mg PO Q4H PRN PRN Reason: Pain Score 4-10 STROKE Vital Signs/Narrative: Vital Signs Temp Pulse Resp BP Pulse Ox 01/15/20 04:48 98.0 F 70 18 146/80 H 96 Medical Necessity - Tobacco Use Smoking Status: Never smoker Assessment/Plan All Active Problems (Last Reviewed 01/08/20 @ 19:[address] Robel Kulkarni, DO) COVID-19 (Acute) Encephalopathy, metabolic (Acute) Acute respiratory failure with hypoxia (Acute) Debility (Acute) Herpes zoster (Acute) Pressure ulcer of left buttock, stage 1 (Resolved) Pressure ulcer of right buttock, stage 1 (Resolved) Patient is an 79-year-old gentleman with history of dementia admitted progressive generalized weakness fatigue cough and dyspnea. His assessment was consistent with with COVID-19 pneumonitis 1. COVID-19 pneumonia ?Did receive a dose of remdesivir, currently on Decadron and supplemental oxygen -01/14/2020; patient seen remains significantly lethargic per nursing staff not eating or drinking much subsequently started on IV fluids -01/15/2020; Pain significantly lethargic apparently refused to eat the day prior was started on IV fluid. Per nursing staff IV fluids infiltrated 2. Coronary artery disease ?With previous PCI currently asymptomatic 3. History of previous CVA ?Patient is on statin therapy as well as systemic anticoagulation with Xarelto in view of his underlying paroxysmal A. fib 4. Diabetes mellitus type 2 ?Patient oral agents held please on Accu-Cheks before meals and at bedtime with sliding scale coverage 5. Hypertension - Blood pressure controlled, home medications continued with dose adjustment as needed 6. Dyslipidemia -Patient is on statin therapy, continued at home dose 7. Alzheimer's dementia with behavioral agitation ?Pressure stated by patient acute COVID-19 infection 8. Obstructive sleep apnea ?On BiPAP at night 10. GERD on PPI 11. Paroxysmal A. fib ?Rate controlled on systemic anticoagulation with Xarelto did continue 12. DVT prophylaxis ?On Xarelto Inpatient E&M: 90603 Subs Hosp L2
[2020-01-15 08:00] VITALS: O2SAT 92
[2020-01-15] MEDS: dexAMETHasone 10 MG/ML Vial 6 MG IV (08:38)
[2020-01-15 08:41] VITALS: BP 117/73; PULSE 73
[2020-01-15] MEDS: Menthol/Lanolin/Calamine/Znox 113 GM Tube 1 APPLIC TOPICAL (08:43)
[2020-01-15 08:45] VITALS: BP 117/73; PULSE 73; RESP 14; TEMP 35.8; O2SAT 92
--- NOTE | 2020-01-15 08:45 | CASEMGMT ---
RN CM Note: spoke with Laverne Lawrence. She and her sister are considering having patient return home and resuming home health. Melinda is aware the patient has not been eating or drinking well and feels this may improve when patient is in his home environment. Sister will be able to be with the patient during the day, and career development director @ night. Home Health with [facility] to be resumed. Recommended she speak with physician to see if patient is ready for discharge today. -Dr. Sanon updated and request to call laverne Lawrence when patient has been evaluated. -call to [facility]. They are active with the patient for PT and SN (SN was new order, had not started due to pt coming to hospital). will resume on discharge. Dariana PALOMARES RN AC
[2020-01-15 08:46] VITALS: PULSE 73; O2SAT 92
[2020-01-15 10:01] LABS: Bedside Glucose 254 mg/dL (70-110)
--- NOTE | 2020-01-15 11:01 | PCM.DC ---
- Discharge Diagnoses Current Active Problems: Current Active and Chronic Problems (Last Reviewed 01/08/20 @ 19:[address] 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) Radiculopathy of lumbosacral region (Chronic) Mixed hyperlipidemia (Chronic) Essential hypertension (Chronic) Type 2 diabetes mellitus (Chronic) Atherosclerotic heart disease of [place] coronary artery with unspecified angina pectoris (Chronic) Chest pain (Chronic) Debility (Acute) Herpes zoster (Acute) Stroke (Chronic) Alzheimer's disease (Chronic) Depression (Chronic) Atrial fibrillation (Chronic) Atherosclerotic heart disease of [place] coronary artery without angina pectoris (Chronic) S/P RCA, LCX, and OM PTCA/SARKIS in April and May of 2014; PTCA/ballooning to OM[facility] at [facility] in December 2017; Stroke determined by clinical assessment (Chronic) Presence of other cardiac implants and grafts (Chronic) Staged PCI done 05/15/14 to RCA & then readmitted 05/26/14 for acute coronary syndrome-PCI completed 05/28/14 Non-ST elevation (NSTEMI) myocardial infarction (Chronic) Diastolic dysfunction (Chronic) Other terminal 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 (current) drug therapy (Chronic) Ischemic cardiomyopathy (Chronic) Second degree atrioventricular block (Chronic) Presence of cardiac pacemaker (Chronic) Pacemaker implant 05/15/14 H/O: stroke (Chronic) H/O myocardial infarction, greater than 8 weeks (Chronic) Dementia (Chronic) You will use the following diet at home:: Calorie/Carbohydrate Controlled (specify 1200, 1400, etc) - 1800 Your food should be the consistency of: Mechanical soft (ground) Allergies/Adverse Reactions: Allergies citalopram [From Celexa] Adverse Reaction (Intermediate, Verified 10/14/19 09:59) Unknown isosorbide [From Imdur] Adverse Reaction (Verified 10/14/19 09:59) Low blood pressure lisinopril Adverse Reaction (Verified 10/14/19 09:59) Low blood pressure Medications to take at Discharge aspirin 81 mg tablet,delayed release 81 mg PO QHS tab 05/16/17 nitroglycerin 0.4 mg sublingual tablet 0.4 mg SUBLINGUAL Q5M PRN 05/16/17 multivitamin 1 tab PO QDAY 09/12/17 vitamin E (dl, acetate) 400 unit capsule 400 unit PO QDAY 09/12/17 Metoprolol Tartrate 25 mg PO BID 01/18/18 Polyethylene Glycol 3350 [Miralax] 17 gm PO DAILY 01/18/18 Acetaminophen [Tylenol Extra Strength] 1,000 mg PO Q6H PRN PRN 01/22/18 Atorvastatin Calcium [Lipitor] 40 mg PO QHS tab 02/01/18 Mirtazapine [Remeron] 15 mg PO QHS #30 tab 02/01/18 Pantoprazole Sodium [Protonix] 40 mg PO DAILY #30 tab 02/05/18 tramadol 50 mg tablet 100 mg PO Q4H PRN tab 03/19/18 ranolazine 500 mg tablet,extended release,12 hr 500 mg PO BID #180 tab 05/03/18 furosemide 20 mg tablet 20 mg PO DAILY PRN 12/13/18 metformin 500 mg tablet 500 mg PO DAILY 12/13/18 Ondansetron [Zofran Odt] 4 mg PO Q8H PRN PRN #10 tab 01/06/20 Ascorbic Acid [Vitamin C] 1,000 mg PO DAILY 01/08/20 Docusate Sodium [Colace] 100 mg PO DAILY 01/08/20 Lamotrigine [Lamictal] 150 mg PO BID 01/08/20 Psyllium Husk (with Sugar) [Fiber Therapy Powder] 2 t PO DAILY 01/08/20 Rivaroxaban [Xarelto] 20 mg PO DAILY 01/08/20 Dexamethasone [Decadron] 6 mg PO DAILY 3 Days #3 tab 01/15/20 The following prescriptions were given: Dexamethasone [Decadron] 6 mg PO DAILY 3 Days #3 tab Transmission Status: Pending to [id number] Primary Care Physician: Gaston Yip MD [Primary Care Provider] - Please follow up with your Primary Care Physician in: in 2-3 weeks Test Results: Test results from this visit will be discussed in further detail at your follow-up appointment, if applicable. Proposed Discharge Date: 01/15/20
--- NOTE | 2020-01-15 11:08 | PCM.DC.SUM ---
Discharge Date and Diagnosis - Problem List Patient Problems: Active and Suspected Problems (Last Reviewed 01/08/20 @ 19:[address] Robel Kulkarni DO) COVID-19 (Acute) Encephalopathy, metabolic (Acute) Acute respiratory failure with hypoxia (Acute) Debility (Acute) Herpes zoster (Acute) Date of Admission: 01/08/20 Date of Discharge: 01/15/20 - Primary Discharge Diagnosis Acute Problems: Active Problems (Last Reviewed 01/08/20 @ 19:[address] Robel Kulkarni DO) COVID-19 (Acute) Encephalopathy, metabolic (Acute) Acute respiratory failure with hypoxia (Acute) Debility (Acute) Herpes zoster (Acute) - Secondary Discharge Diagnosis Chronic Problems: Chronic Problems (Last Reviewed 01/08/20 @ 19:[address] 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) Chest pain (Chronic) Stroke (Chronic) Alzheimer's disease (Chronic) Depression (Chronic) Atrial fibrillation (Chronic) Atherosclerotic heart disease of [place] coronary artery without angina pectoris (Chronic) S/P RCA, LCX, and OM PTCA/SARKIS in April and May of 2014; PTCA/ballooning to OM1 at [facility] in December 2017; Stroke determined by clinical assessment (Chronic) Presence of other cardiac implants and grafts (Chronic) Staged PCI done 05/15/14 to RCA & then readmitted 05/26/14 for acute coronary syndrome-PCI completed 05/28/14 Non-ST elevation (NSTEMI) myocardial infarction (Chronic) Diastolic dysfunction (Chronic) 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 Electronically Signed: Jonny Campo MD at 11:09 EST Tel , Service support , Operations: None Summary of Care Provided: The patient is a 79 year old M [] Patient is an 79-year-old gentleman with history of dementia admitted progressive generalized weakness fatigue cough and dyspnea. His assessment was consistent with with COVID-19 pneumonitis 1. COVID-19 pneumonia ?Did receive a dose of remdesivir, currently on Decadron and supplemental oxygen -01/14/2020; patient seen remains significantly lethargic per nursing staff not eating or drinking much subsequently started on IV fluids -01/15/2020; Pain significantly lethargic apparently refused to eat the day prior was started on IV fluid. Per nursing staff IV fluids infiltrated -01/15/2020; subsequently had a discussion with patient's daughter regarding his overall condition. We arrived at the decision to discharge patient home with home health. Prescription was written for Decadron for 3 more days. 2. Coronary artery disease ?With previous PCI currently asymptomatic 3. History of previous CVA ?Patient is on statin therapy as well as systemic anticoagulation with Xarelto in view of his underlying paroxysmal A. fib 4. Diabetes mellitus type 2 ?Patient oral agents held please on Accu-Cheks before meals and at bedtime with sliding scale coverage 5. Hypertension - Blood pressure controlled, home medications continued with dose adjustment as needed 6. Dyslipidemia -Patient is on statin therapy, continued at home dose 7. Alzheimer's dementia with behavioral agitation ?Pressure stated by patient acute COVID-19 infection 8. Obstructive sleep apnea ?On BiPAP at night 10. GERD on PPI 11. Paroxysmal A. fib ?Rate controlled on systemic anticoagulation with Xarelto did continue 12. DVT prophylaxis ?On Xarelto Patient Problems: Active and Suspected Problems (Last Reviewed 01/08/20 @ 19:[address] Robel Kulkarni, DO) COVID-19 (Acute) Encephalopathy, metabolic (Acute) Acute respiratory failure with hypoxia (Acute) Debility (Acute) Herpes zoster (Acute) - Physical Exam Vitals/I&O's: Vital Signs Temp Pulse Resp BP Pulse Ox 96.5 F L 73 14 117/73 92 01/15/20 08:45 01/15/20 08:46 01/15/20 08:45 01/15/20 08:45 01/15/20 08:46 Oxygen Flow Rate (L/min) 2 Oxygen Delivery Method Room Air Weight: 93.2 kg Body Mass Index (BMI) 28.8 Finger Stick Blood Glucose 160 Intake and Output for Last 24 Hours 01/13/20 01/14/20 01/15/20 23:59 23:59 23:59 Intake Total 320 / 320 946.25 / 946.25 Balance 320 / 320 946.25 / 946.25 Lungs: Diminished Cardiovascular: Regular rate, Regular Rhythm Psych/Mental Status: Flat Affect Laboratory Results 01/14/20 13:17: POC Glucose 241 H 01/14/20 17:24: POC Glucose 263 H 01/14/20 22:38: POC Glucose 255 H 01/15/20 05:02: POC Glucose 269 H 01/15/20 05:08: WBC 8.6, RBC 4.58 L, Hgb 13.9, Hct 42.5, MCV 92.8, MCH 30.3, MCHC 32.7, RDW Std Deviation 42.3, RDW Coeff of Az 12.5, Plt Count 349, MPV 8.9, Immature Gran % (Auto) 1.500 H, Neut % (Auto) 76.9 H, Lymph % (Auto) 10.6 L, [place] % (Auto) 10.2 H, Eos % (Auto) 0.5, Baso % (Auto) 0.3, Absolute Neuts (auto) 6.6, Absolute Lymphs (auto) 0.91, Nucleated RBC % 0 01/15/20 05:08: Sodium 138, Potassium 4.5, Chloride 107, Carbon Dioxide 22.0, Anion Gap 9, BUN 27 H, Creatinine 0.86, Estim Creat Clear Calc 78.32, Est GFR (MDRD) Af Amer 110, Est GFR (MDRD) Non-Af 91, BUN/Creatinine Ratio 31.5 H, Glucose 252 H, Calcium 8.6, Total Bilirubin 0.90, AST 24, ALT 31, Alkaline Phosphatase 86, Total Protein 6.4, Albumin 3.0 L, Globulin 3.4, Albumin/Globulin Ratio 0.9 01/15/20 08:33: POC Glucose 254 H Current Medications Acetaminophen (Acetaminophen 650 Mg/20 Ml Udc) 650 mg PO Q4H PRN PRN PRN Reason: HEADACHE Last Admin: 01/14/20 17:26 Dose: 650 mg Documented by: Acetaminophen (Acetaminophen 650 Mg Suppository) 650 mg RECTAL Q4H PRN PRN PRN Reason: HEADACHE Albuterol Sulfate (Albuterol Ih 8.5 Gm (Proair) Inhaler (200 Puffs)) 4 - 8 puff INHALATION Q4H PRN PRN PRN Reason: Dyspnea, wheezing Aspirin (Aspirin E.C. 81 Mg Tablet) 81 mg PO QHS [facility] Last Admin: 01/14/20 22:58 Dose: Not Given Documented by: Atorvastatin Calcium (Atorvastatin Calcium 40 Mg Tablet) 40 mg PO QHS [facility] Last Admin: 01/14/20 22:58 Dose: Not Given Documented by: Calamine/Phenol (Menthol/Lanolin/Calamine/Znox 113 Gm Tube) 1 applic TOPICAL BID [facility]; Protocol Last Admin: 01/15/20 08:43 Dose: 1 applic Documented by: Dexamethasone Sodium Phosphate (Dexamethasone 10 Mg/Ml Vial) 6 mg IV DAILY [facility] Stop: 01/18/20 10:01 Last Admin: 01/15/20 08:38 Dose: 6 mg Documented by: Dextrose (Dextrose 50%-Water 25 Gm/50 Ml Disp.Syrin) 0 gm IV X1 PRN; Protocol PRN Reason: Hypoglycemia Docusate Sodium (Docusate Sodium 100 Mg Capsule) 100 mg PO DAILY [facility] Last Admin: 01/15/20 08:38 Dose: Not Given Documented by: Glucagon (Glucagon 1 Mg/Ml Syringe) 1 mg IM .X1 PRN PRN Reason: Hypoglycemia Haloperidol Lactate (Haloperidol Lactate 5 Mg/Ml Vial) 1 mg IM Q4H PRN PRN PRN Reason: uncontrollable anxiety Hydralazine HCl (Hydralazine 20 Mg/Ml Vial) 10 mg IV Q4H PRN PRN PRN Reason: SBP > 160 Sodium Chloride () 250 mls @ 15 mls/hr IV .[id number] PRN PRN Reason: Saline Flush Last Infusion: 01/09/20 14:22 Dose: Infused Documented by: Sodium Chloride () 250 mls @ 15 mls/hr IV .[id number] PRN PRN Reason: Additional IVPB Infusion Potassium Chloride 20 meq/ (Dextrose) 1,010 mls @ 75 mls/hr IV .[id number] [facility] Last Admin: 01/15/20 04:36 Dose: 75 mls/hr Documented by: Insulin Human Lispro (Insulin Lispro 100 Unit/Ml Insuln.Pen) 0 unit SC ACHS [facility]; Protocol Last Admin: 01/15/20 05:06 Dose: 3 u Documented by: Lamotrigine (Lamotrigine 150 Mg Tablet) 150 mg PO BID [facility] Last Admin: 01/15/20 08:41 Dose: Not Given Documented by: Metoprolol Tartrate (Metoprolol Tartrate 25 Mg Tablet) 25 mg PO BID [facility] Last Admin: 01/15/20 08:41 Dose: Not Given Documented by: Mirtazapine (Mirtazapine 15 Mg Tablet) 15 mg PO QHS [facility] Last Admin: 01/14/20 22:59 Dose: Not Given Documented by: Multivitamins (Multivitamins,Therapeutic Tablet) 1 tablet PO DAILY [facility] Last Admin: 01/15/20 08:42 Dose: Not Given Documented by: Nitroglycerin (Nitroglycerin (Inpatient Use) 0.4 Mg Tab.Subl) 0.4 mg SUBLINGUAL Q5M PRN PRN Reason: Angina Ondansetron HCl (Ondansetron Odt 4 Mg Tablet) 4 mg PO Q8H PRN PRN PRN Reason: NAUSEA Pantoprazole Sodium (Pantoprazole Sodium 40 Mg Tablet) 40 mg PO DAILY [facility] Last Admin: 01/15/20 08:42 Dose: Not Given Documented by: Polyethylene Glycol (Polyethylene Glycol 3350 17 Gm Packet) 17 gm PO DAILY [facility] Last Admin: 01/15/20 08:42 Dose: Not Given Documented by: Ranolazine (Ranolazine 500 Mg Tablet) 500 mg PO BID [facility] Last Admin: 01/15/20 08:42 Dose: Not Given Documented by: Rivaroxaban (Rivaroxaban 20 Mg Tablet) 20 mg PO DAILY [facility] Last Admin: 01/15/20 08:42 Dose: Not Given Documented by: Sodium Chloride (0.9% Saline Lock 10 Ml Syringe) 10 - 40 ml IV UD PRN PRN Reason: SALINE FLUSH Last Admin: 01/15/20 07:08 Dose: 10 ml Documented by: Tramadol HCl (Tramadol 50 Mg Tablet) 100 mg PO Q4H PRN PRN Reason: Pain Score 4-10 Discharge Diet: 1800 Calorie Control Diet Discharge Activity: Return to Normal Activity Home Medications: Medications to take at Discharge aspirin 81 mg tablet,delayed release 81 mg PO QHS tab 05/16/17 nitroglycerin 0.4 mg sublingual tablet 0.4 mg SUBLINGUAL Q5M PRN 05/16/17 multivitamin 1 tab PO QDAY 09/12/17 vitamin E (dl, acetate) 400 unit capsule 400 unit PO QDAY 09/12/17 Metoprolol Tartrate 25 mg PO BID 01/18/18 Polyethylene Glycol 3350 [Miralax] 17 gm PO DAILY 01/18/18 Acetaminophen [Tylenol Extra Strength] 1,000 mg PO Q6H PRN PRN 01/22/18 Atorvastatin Calcium [Lipitor] 40 mg PO QHS tab 02/01/18 Mirtazapine [Remeron] 15 mg PO QHS #30 tab 02/01/18 Pantoprazole Sodium [Protonix] 40 mg PO DAILY #30 tab 02/05/18 tramadol 50 mg tablet 100 mg PO Q4H PRN tab 03/19/18 ranolazine 500 mg tablet,extended release,12 hr 500 mg PO BID #180 tab 05/03/18 furosemide 20 mg tablet 20 mg PO DAILY PRN 12/13/18 metformin 500 mg tablet 500 mg PO DAILY 12/13/18 Ondansetron [Zofran Odt] 4 mg PO Q8H PRN PRN #10 tab 01/06/20 Ascorbic Acid [Vitamin C] 1,000 mg PO DAILY 01/08/20 Docusate Sodium [Colace] 100 mg PO DAILY 01/08/20 Lamotrigine [Lamictal] 150 mg PO BID 01/08/20 Psyllium Husk (with Sugar) [Fiber Therapy Powder] 2 t PO DAILY 01/08/20 Rivaroxaban [Xarelto] 20 mg PO DAILY 01/08/20 Dexamethasone [Decadron] 6 mg PO DAILY 3 Days #3 tab 01/15/20 Following Prescriptions Were Given to Patient: Dexamethasone [Decadron] 6 mg PO DAILY 3 Days #3 tab Transmission Status: Pending to [id number] Primary Care Physician: Gaston Yip MD [Primary Care Provider] - Please follow up with your Primary Care Physician in: in 2-3 weeks Disposition: Home with Home Health Minutes spent on discharge:: 35 Patient Condition:: Stable Medical Necessity - Tobacco Use Smoking Status: Never smoker Meaningful Use Info Meaningful Use Diagnoses (Choose all that apply): None applicable Inpatient E&M: 25544 Disch Hosp
[2020-01-15 11:31] LABS: Bedside Glucose 276 mg/dL (70-110)
--- NOTE | 2020-01-15 12:00 | CASEMGMT ---
Addendum entered by Marco Herndon 01/15/20 13:21: [facility] updated that patient will return home today. Verified fax with dc information was received. Daughter updated that patient has a 2:30 picker packer time. Dariana ASENCIO Original Note: RYAN WILHELM Note: DC Summary, Instructions faxed to [facility]. Ambulance transport set up through [facility]. Estimated picker packer time is 2:30 pm today and reservation # is [id number]. -nursing is aware. Dariana ASENCIO
[2020-01-15 12:41] VITALS: BP 108/54; PULSE 69; RESP 18; TEMP 36.4; O2SAT 93
--- NOTE | 2020-01-15 15:25 | NURSING ---
called Daughter Melinda informed her that squad leaving now with Bruno with his c-pap upper dentures & personal clothing ,
== END 2020-01-15 15:21 | disposition home or self-care (01) | DRG 177 ==
PROVIDERS: Family Medicine; Internal Medicine Infectious Disease; PCP Family Medicine; Visit Provider Internal Medicine
DX: U07.1 COVID-19 (principal); J12.89 Other viral pneumonia; J96.01 Acute respiratory failure with hypoxia; G93.41 Metabolic encephalopathy; F02.81 Dementia in other diseases classified elsewhere, unspecified severity, with behavioral disturbance; B02.9 Zoster without complications; I25.119 Atherosclerotic heart disease of native coronary artery with unspecified angina pectoris; I10 Essential (primary) hypertension; I48.0 Paroxysmal atrial fibrillation; E11.9 Type 2 diabetes mellitus without complications; I25.5 Ischemic cardiomyopathy; E78.2 Mixed hyperlipidemia; F32.9 Major depressive disorder, single episode, unspecified; G30.9 Alzheimer's disease, unspecified; K21.9 Gastro-esophageal reflux disease without esophagitis; M51.36 Other intervertebral disc degeneration, lumbar region; R53.81 Other malaise; M54.17 Radiculopathy, lumbosacral region; D72.810 Lymphocytopenia; G47.33 Obstructive sleep apnea (adult) (pediatric); Z79.84 Long term (current) use of oral hypoglycemic drugs; Z79.01 Long term (current) use of anticoagulants; I25.2 Old myocardial infarction; Z79.82 Long term (current) use of aspirin; Z79.899 Other long term (current) drug therapy; Z86.73 Personal history of transient ischemic attack (TIA), and cerebral infarction without residual deficits; Z95.0 Presence of cardiac pacemaker; Z98.61 Coronary angioplasty status
CPT/HCPCS: 36415; 36600; 70450; 71045; 80048; 80053; 80076; 82728; 82803; 82962; 83605; 83735; 84145; 84484; 85025; 85379; 86140; 86900; 86901; 87040; 93005; 94002; 94003; 94760; 96361; 97110; 97162; 97166; 97530; 97535; 97802; 99284; J7040; J7050; A4216; J1940

== ENCOUNTER 2021-01-29 22:38 | Inpatient (IN) | payer MEDICARE, OTHER, SELFPAY ==
[2021-01-29 22:47] VITALS: BP 128/75; PULSE 70; RESP 18; TEMP 36.3; O2SAT 91; O2SAT 94; BMI 28.8
--- NOTE | 2021-01-29 23:22 | PCM.HP.STD ---
HPI - General General Date of Admission: 01/29/21 HPI Narrative 01/06/2020 BERT BRAVO, is a 80 Male who presents to [facility] Emergency Department with weakness, decreased intake. 01/06/2020 EKG ventricular paced rhythm. Weakness, positive covid19 1 week prior, not eating for 2 days. Mild diarrhea, Pulsox 88% to 92% on RA at home. Chest X-ray negative. IV fluids given, discharged home. 01/08/2020 Admit to Hospital. Consult Infectious Disease, Decadron, Remdesivir for covid19. Oxygen, Bipap at night for hypoxia. 01/09/2020 Dr. Cameron recommended convalescent plasma. 01/14/2021 Discharge home with home health. 01/29/2021 Patient presented to [place] with encephalopathy. WBC normal, Chest X-ray negative, covid19 negative. Unable to take care of at home home. 01/29/2021 Admit to TCU with debility, here for rehabilitation, strengthening, prior to discharge home with daughter. [facility] Medical History (Updated 01/29/21 @ 23:[address] 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 Ischemic cardiomyopathy Mixed hyperlipidemia Non-ST elevation (NSTEMI) myocardial infarction 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 Pressure ulcer of left buttock, stage 1 Pressure ulcer of right buttock, stage 1 Second degree atrioventricular block Stroke Stroke determined by clinical assessment Type 2 diabetes mellitus Home Medications aspirin 81 mg tablet,delayed release 81 mg PO QHS tab 05/16/17 [History Last Taken 01/07/20] nitroglycerin 0.4 mg sublingual tablet 0.4 mg SUBLINGUAL Q5M PRN 05/16/17 [History Last Taken Unknown] vitamin E (dl, acetate) 180 mg (400 unit) capsule 400 unit PO QDAY 09/12/17 [History Last Taken 01/07/20] metoprolol tartrate 25 mg PO BID 11/22/18 [History Last Taken 01/07/20] polyethylene glycol 3350 17 gm PO DAILY 01/18/18 [History Last Taken 01/07/20] acetaminophen 1,000 mg PO Q6H PRN PRN 01/22/18 [History Last Taken 01/08/20] tramadol 50 mg tablet 50 mg PO Q4H PRN tab 03/19/18 [History Last Taken 04/15/19 06:30] furosemide 20 mg tablet 20 mg PO DAILY PRN PRN 12/13/18 [History Last Taken Unknown] metformin 500 mg tablet 1,000 mg PO BID 12/13/18 [History Last Taken 01/07/20] ondansetron 4 mg PO Q8H PRN PRN #10 tab 01/06/20 [Rx Last Taken 01/08/20] docusate sodium 100 mg PO DAILY 01/08/20 [History Last Taken 01/07/20] lamotrigine 150 mg PO BID 01/08/20 [History Last Taken Unknown] dexamethasone 4 mg tablet 2 mg PO .COMPLEX tablet 06/18/20 [History Last Taken Unknown] hydrocodone-acetaminophen 5-325mg 5mg-325mg 1 tablet PO BID PRN tablet 06/18/20 [History Last Taken Unknown] atorvastatin 40 mg PO QHS 01/29/21 [History Last Taken Unknown] mirtazapine 15 mg PO QHS 01/29/21 [History Last Taken Unknown] pantoprazole 40 mg PO DAILY 01/29/21 [History Last Taken Unknown] ranolazine [Ranexa] 500 mg PO BID 01/29/21 [History Last Taken Unknown] rivaroxaban 20 mg PO DAILY 01/29/21 [History Last Taken Unknown] Allergy/AdvReac Type Severity Reaction Status Date / Time citalopram [From Celexa] AdvReac Intermediate Unknown Verified 12/24/20 13:23 isosorbide [From Imdur] AdvReac Low blood Verified 12/24/20 13:23 pressure lisinopril AdvReac Low blood Verified 12/24/20 13:23 pressure Family History Other Heart disease Surgical History Presence of cardiac pacemaker Presence of other cardiac implants and grafts Social History (Updated 12/03/21 @ 23:[address] Yoan Valenzuela MD) household members: family Smoking Status: Never smoker alcohol intake: never caffeine: Yes Type: coffee Number of servings: 2 ROS Constitutional Constitutional: Denies chills, fever(s) or weight gain ENT HEENT: Denies headache(s), nasal congestion or nasal discharge Cardiovascular Cardiovascular: Denies chest pain or palpitations Respiratory/Chest Respiratory/Chest: Denies cough, excessive phlegm production or shortness of breath with exertion Gastrointestinal Gastrointestinal: Denies abdominal pain, nausea or vomiting Genitourinary Genitourinary: Denies dysuria Musculoskeletal Musculoskeletal: Denies joint pain or joint swelling Integumentary Integumentary: Denies rash or wounds Neurologic Neurologic: Denies focal weakness, numbness or tingling Psychiatric Psychiatric: Denies anxiety, auditory hallucinations, depression, homicidal ideation or suicidal ideation Physical Exam Const alert and oriented x3 General Appearance: cooperative HEENT normocephalic Eyes PERRL and EOMs intact bilaterally Neck supple, no JVD and no carotid bruits Resp normal respiratory effort, normal air movement and clear to auscultation bilaterally Cardio regular rate and regular rhythm GI normal to inspection, nondistended, normoactive bowel sounds, non-tender and non-distended Extremity normal capillary refill General Extremity: Negative for edema Skin no rashes or lesions noted General Skin Exam: no breakdown Psych affect normal Appearance: appropriate Results Lab / Micro Data Result Diagrams: 01/30/21 07:37 01/30/21 07:37 Assessment & Plan Assessment/Plan (1) Debility: (2) Encephalopathy: (3) Obstructive sleep apnea: (4) Stroke: (5) Coronary artery disease: (6) Hyperlipidemia: (7) Depression: (8) Gastroesophageal reflux disease: (9) Diabetes mellitus: (10) Chronic nausea: (11) Hypertension: PLAN: 80 year old male with below past medical history presented to [facility] with encephalopathy, unable to care for at home, admit to TCU with debility, here for rehabilitation, strengthening, prior to disposition determination. Debility - PT/OT. Pain - Tylenol 1000mg q6h prn pain (1-3), Tramadol 50mg q4h prn pain (4-10). Bowel - Miralax 17gm daily. Adult immunization - Administer prevnar 13, pneumovax 23, fluzone, covid19 vaccine as appropriate. DVT prophylaxis - Not necessary, already on Xarelto. Hyperlipidemia - Atorvastatin 40mg qhs. Adrenal insufficiency - Decadron 2mg MWF. Edema - Lasix 20mg daily prn. 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 Diabetes Mellitus II - Metformin 1000mg bid. Atrial Fibrillation - Metoprolol 25mg bid, Xarelto 20mg daily. Depression/insomnia/appetite loss - Mirtazapine 15mg qhs, stable chronic technician terminal and repeater use, GDR not recommended. Coronary artery disease - Metoprolol 25mg bid, Ranexa 500mg bid, Xarelto 20mg daily, ntg 0.4mg sl q5m prn chest pain. Chronic nausea - Zofran odt 4mg q8h prn. GERD - Pantoprazole 40mg daily.
--- NOTE | 2021-01-30 00:01 | NURSING ---
Patient arrived with some papers but no discharge instructions or discharge med list from. List of home meds and history from daughter (Melinda) included in paperwork. Updated Dr. Valenzuela, order to use list from daughter as home meds to continue. Daughter Melinda called and spoke with this RN before patient arrived on TCU. She provided history and answered most admission questions. She said she will come by tomorrow and sign paperwork as patient is unable due to confusion.
[2021-01-30 05:00] VITALS: BP 115/79; PULSE 68; RESP 16; TEMP 36.3; O2SAT 94
[2021-01-30 06:26] LABS: Bedside Glucose 174 mg/dL (70-110)
[2021-01-30] MEDS: Menthol/Lanolin/Calamine/Znox 113 GM Tube 1 APPLIC TOPICAL ×2 (06:30→17:34)
[2021-01-30] MEDS: lamoTRIgine 150 MG Tablet PO ×2 (06:31→17:35)
[2021-01-30] MEDS: Polyethylene Glycol 3350 17 GM PACKET PO (06:31)
[2021-01-30] MEDS: Ranolazine 500 MG Tablet PO ×2 (06:31→17:36)
[2021-01-30] MEDS: Pantoprazole Sodium 40 MG Tablet PO (06:31)
[2021-01-30 06:32] VITALS: BP 115/79; PULSE 68
[2021-01-30] MEDS: Metoprolol Tartrate 25 MG Tablet PO ×2 (06:32→17:41)
[2021-01-30] MEDS: Vitamin E 400 UNITS Capsule PO (06:32)
[2021-01-30] MEDS: Rivaroxaban 20 MG Tablet PO (06:33)
[2021-01-30 08:17] LABS: Absolute Lymphocyte Count 1.25 X10^3/uL (0.83-4.51); Absolute Neutrophil Count 3.5 X10^3/uL (2.0-7.7); Basophil# 0.02 X10^3/uL; Basophil% 0.4 % (0-1); Eosinophil# 0.19 X10^3/uL; Eosinophils% 3.4 % (0-5); Hematocrit 39.4 % (40-54); Hemoglobin 13.1 g/dL (13.0-16.5); Lymphocyte # 1.25 X10^3/ul (0.83-4.51); Lymphocyte % 22.2 % (19-41); Mean Corp Hgb Conc 33.2 g/dL (32-36); Mean Corpuscular Hgb 31.6 pg (27.0-32.0); Mean Corpuscular Volume 95.2 fL (80-94); Mean Platelet Vol. 9.1 fl (6.2-12.0); Monocyte% 12.4 % (0-10); NRBC Flagged by Analyzer 0 % (0-5); Neutrophil # 3.45 X10^3/uL (2.7-7.7); Neutrophil % 61.1 % (47-70); Platelet Count 154 K/mm3 (150-450); RBC Distribution Width CV 13.2 % (11.6-14.6); RBC Distribution Width SD 46.3 fl (35.1-43.9); Red Blood Count 4.14 M/mm3 (4.6-6.2); White Blood Count 5.6 K/mm3 (4.4-11.0)
[2021-01-30] MEDS: 0.9% Saline Lock 10 ML Syringe IV (08:41)
[2021-01-30 08:48] LABS: Anion Gap 9 (5-15); BUN 12 mg/dL (7-18); BUN/Creat Ratio 12.4 RATIO (10-20); Calcium,Total 8.6 mg/dL (8.5-10.1); Chloride 105 mmol/L (98-107); Creatinine, Serum 0.97 mg/dL (0.70-1.30); EST Glomerular Filtration Rate 79 mL/min (>60); Est Glom Filt Rate - Afr Amer 95 mL/min (>60); Estimated Creatinine Clearance 68.26 ml/min; Glucose 181 mg/dL (74-106); Potassium 3.8 mmol/L (3.5-5.1); Sodium Level 138 mmol/L (136-145)
[2021-01-30] MEDS: metFORMIN HCl 500 MG Tablet PO ×2 (09:43→17:35)
[2021-01-30] MEDS: Tuberculin,Purif.prot.deriv. 50 TU/ML Vial 0.1 ML ID (11:33)
[2021-01-30 12:50] VITALS: PULSE 75; RESP 18; O2SAT 95
--- NOTE | 2021-01-30 13:27 | NURSING ---
[facility] CATH PLACED IN ER. NO REASON GIVEN IN NOTES. WILL ASK DAUGHTER AND LOOK INTO IT AND CALL IF NEEDED. RN AWARE
[2021-01-30 15:21] VITALS: BP 109/72; PULSE 72; RESP 18; TEMP 36.6; O2SAT 97
[2021-01-30 17:41] VITALS: BP 132/81; PULSE 76
[2021-01-30 17:47] VITALS: BP 132/81; PULSE 76
--- NOTE | 2021-01-30 21:00 | NURSING ---
Daughter, Melinda, at bedside. Discussed intermittent moist, nonproductive cough. Lungs w/ fine crackles anterior b/l to mid/upper chest. Would like to see if Mucinex or an equivalent could be ordered to help clear congestion in addition to having an aerosol treatment. Plan to call respiratory as order for Ventolin aerosol is PRN. Pt in no acute distress. Rt hand w/ +1 non-pitting edema. Melinda thinks this may be a result of recent IVF while in ER. Affected extremity is elevated on a soft pillow. Cg will not be coming at night d/t current health problems and does not want to be exposed something that may exacerbate any symptoms. Melinda's sister will stay during the week but needs to be to [place] by 2:30. Discussed parrish catheter and she is unsure why it was placed in the ER. Pt w/ a hx of intermittent skin breakdown to buttocks. Turn schedule at home is q2hr during the day at q3hr at hs. Patient is not placed on back unless consuming food or fluids or taking pills. Takes liquids well at home during the day when more alert. Swallows pills at home with water only when more alert, but mixes with pudding or applesauce at hs. Had used a CPAP prior to diagnosis of COVID-19 in Dec 2019, and has not used unit since. Contemplated bringing DME to TCU, but decided since pt has not used CPAP for an extended period of time that she will leave it at home. Melinda and this nurse think pt may become more confused and/or restless if reintroducing CPAP. Reports pt would become restless at home when wearing CPAP. Pt is active w/ [facility] palliative care who initiated Dexamethasone for generalized discomfort. Dose recently was increased to 4 mg 2-3 weeks ago per palliative staff. Offered to have palliative care consulted if needed and Melinda declines at this time.
[2021-01-30] MEDS: Atorvastatin Calcium 40 MG Tablet PO (21:36)
[2021-01-30] MEDS: Mirtazapine 15 MG Tablet PO (21:37)
--- NOTE | 2021-01-30 21:40 | NURSING ---
Phone call placed to pulmonary services requesting a breathing treatment.
--- NOTE | 2021-01-30 23:40 | NURSING ---
This nurse checked on pt when coughing. Cough remains moist and nonproductive. In no acute distress. Pt awake and converses with this nurse. No conversational dyspnea noted. Did not note any equipment in room for aerosol treatments. Phone call placed to pulmonary services and spoke w/ Gustavo, who reports he was recently on unit and asked pt if he wanted a treatment. He notes pt declined breathing treatment.
[2021-01-31] VITALS (9 sets, daily range): BP systolic 108–113; BP diastolic 67–73; PULSE 61–74; RESP 12–20; TEMP 36.2–36.4; O2SAT 95–97
--- NOTE | 2021-01-31 00:45 | NURSING ---
Daughter, Melinda, on unit and asks this nurse if pt can have a breathing treatment. Phone call placed to pulmonary services and spoke w/ Gustavo to update on request as noted above. He verbalizes understanding.
[2021-01-31] MEDS: Albuterol 2.5 MG/3 ML VIAL.NEB. INHALATION ×3 (00:57→19:20)
[2021-01-31] MEDS: Polyethylene Glycol 3350 17 GM PACKET PO (05:46)
[2021-01-31] MEDS: Metoprolol Tartrate 25 MG Tablet PO ×2 (05:47→17:49)
[2021-01-31] MEDS: Pantoprazole Sodium 40 MG Tablet PO (05:47)
[2021-01-31] MEDS: Rivaroxaban 20 MG Tablet PO (05:47)
[2021-01-31] MEDS: lamoTRIgine 150 MG Tablet PO ×2 (05:48→17:44)
[2021-01-31] MEDS: Ranolazine 500 MG Tablet PO ×2 (05:48→17:45)
[2021-01-31] MEDS: 0.9% Saline Lock 10 ML Syringe IV (05:49)
[2021-01-31] MEDS: Menthol/Lanolin/Calamine/Znox 113 GM Tube 1 APPLIC TOPICAL ×2 (05:53→17:43)
[2021-01-31] MEDS: metFORMIN HCl 500 MG Tablet PO ×2 (09:34→17:43)
--- NOTE | 2021-01-31 14:57 | RAD_ITS ---
STUDY: X-RAY CHEST REASON FOR EXAM: Male, 80 years old. moist cough TECHNIQUE: 2 views COMPARISON: 01/06/2020 FINDINGS: Left-sided dual-lead pacemaker is in place. Cardiomediastinal silhouette is unremarkable. Costophrenic angles are sharp. Lungs are clear. The trachea is midline. There is no pneumothorax. The bones are grossly intact. RAD/Chest PA and Lateral IMPRESSION: No acute cardiopulmonary process. Electronically Signed: Prince Carlton MD at 16:28 EST Tel , Service support ,
--- NOTE | 2021-01-31 15:51 | NURSING ---
PER ORDER GUERRA D/C AT 1540. BLADDER SCAN AND IF 300 OR ABOVE STRAIGHT CATH.
--- NOTE | 2021-01-31 16:07 | NURSING ---
PT HAS BEEN SLEEPING MOST OF DAY,BUT DOES WAKE UP FOR MEALS AND WITH VISITORS.
--- NOTE | 2021-01-31 16:42 | NURSING ---
CALLED AND UPDATED DAUGHTER ON PT. DAUGHTER THANKED THIS NURSE.
[2021-01-31] MEDS: guaiFENesin Dm 10 ML UDC 5 ML PO (20:10)
[2021-01-31] MEDS: Acetaminophen 500 MG Tablet 1000 MG PO (20:11)
[2021-01-31] MEDS: Mirtazapine 15 MG Tablet PO (23:13)
[2021-01-31] MEDS: Atorvastatin Calcium 40 MG Tablet PO (23:13)
[2021-02-01] MEDS: guaiFENesin Dm 10 ML UDC 5 ML PO ×2 (02:33→23:06)
--- NOTE | 2021-02-01 05:52 | CPS ---
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
--- NOTE | 2021-02-01 06:15 | NURSING ---
Brief dry this am. Daughter, Melinda, present and placed urinal in attempt to have pt void. Pt did not void. Bladder scanned for 259 ml. She will attempt to place urinal again this am and contact staff after he has voided. Will continue to monitor.
[2021-02-01 06:20] VITALS: BP 109/70; PULSE 64; RESP 16; TEMP 36.1; O2SAT 95
[2021-02-01] MEDS: Rivaroxaban 20 MG Tablet PO (06:21)
[2021-02-01 06:22] VITALS: BP 109/70; PULSE 64
[2021-02-01] MEDS: Metoprolol Tartrate 25 MG Tablet PO ×2 (06:22→17:51)
[2021-02-01] MEDS: lamoTRIgine 150 MG Tablet PO ×2 (06:22→17:51)
[2021-02-01] MEDS: Pantoprazole Sodium 40 MG Tablet PO (06:22)
[2021-02-01] MEDS: Ranolazine 500 MG Tablet PO ×2 (06:22→17:51)
[2021-02-01] MEDS: Menthol/Lanolin/Calamine/Znox 113 GM Tube 1 APPLIC TOPICAL ×2 (06:24→17:54)
--- NOTE | 2021-02-01 06:30 | NURSING ---
Miralax held at this time today until daughter, Melinda, is able to confirm consistency of stool passed yesterday w/ caregiver that was staying w/ pt.
--- NOTE | 2021-02-01 07:10 | NURSING ---
Saline lock dc'ed after becoming dislodged. Site without redness, warmth, or swelling. No active bleeding noted.
[2021-02-01] MEDS: metFORMIN HCl 500 MG Tablet PO ×2 (09:00→17:51)
[2021-02-01] MEDS: dexAMETHasone 2 MG TABLET PO (09:00)
[2021-02-01] MEDS: Polyethylene Glycol 3350 17 GM PACKET PO (09:01)
--- NOTE | 2021-02-01 10:35 | CASEMGMT ---
Social Work Met with patient and both dtrs present in room for initial assessment. Pt asleep and unresponsive to awake. Both dtr's are HCPOA. Confirmed DNR-CCA no intubation. Explained Medicare benefit. Encouraged to contact secondary insurance to ensure copay coverage. The goal is for pt to return home alone with 24/7 care from private duty aides and dtr's. DtrJaylyn, lives across the street and stays with pt 3x/wk and give pt showers. Pt needs assistance for all ADLs and IADLs. SW to continue to follow for discharge planning. Cammy Sexton ,[employer] DEVELOPER
--- NOTE | 2021-02-01 14:20 | NURSING ---
Family brought in their own personal alarm for pt requesting that staff use that one instead of our bed and chair exit alarms.
--- NOTE | 2021-02-01 14:47 | PCM.PN.RX ---
Progress Note - Pharmacy Subjective: TCU Admission Objective: Allergies citalopram [From Celexa] Adverse Reaction (Intermediate, Verified 12/24/20 13:23) Unknown isosorbide [From Imdur] Adverse Reaction (Verified 12/24/20 13:23) Low blood pressure lisinopril Adverse Reaction (Verified 12/24/20 13:23) Low blood pressure Current Medications Generic Name Dose Route Start Last Admin Trade Name Freq PRN Reason Stop Dose Admin Acetaminophen 1,000 mg 01/29/21 23:46 01/31/21 20:11 Acetaminophen 500 Mg Tablet PO 1,000 mg Q6H PRN PRN Administration Mild Pain (1-05/06) Albuterol Sulfate 2.5 mg 01/30/21 07:22 01/31/21 19:20 Albuterol 2.5 Mg/3 Ml Vial.Neb. INHALATION 2.5 mg Q2H PRN PRN Administration SOB/COUGH/WHEEZING Atorvastatin Calcium 40 mg 01/30/21 22:00 01/31/21 23:13 Atorvastatin Calcium 40 Mg Tablet PO 40 mg QHS DAGO Administration Calamine/Phenol 1 applic 01/30/21 06:00 02/01/21 06:24 Menthol/Lanolin/Calamine/Znox 113 Gm Tube TOPICAL 1 applic BID DAGO Administration Protocol Dexamethasone 2 mg 02/01/21 08:00 02/01/21 09:00 Dexamethasone 2 Mg Tablet PO 2 mg [id number] DAGO Administration Furosemide 20 mg 01/29/21 23:46 Furosemide 20 Mg Tablet PO DAILY PRN PRN EDEMA Guaifenesin 5 ml 01/31/21 14:59 02/01/21 02:33 Guaifenesin Dm 10 Ml Udc PO 5 ml Q6H PRN PRN Administration COUGH Lamotrigine 150 mg 01/30/21 06:00 02/01/21 06:22 Lamotrigine 150 Mg Tablet PO 150 mg BID DAGO Administration Metformin HCl 500 mg 01/30/21 08:00 02/01/21 09:00 Metformin Hcl 500 Mg Tablet PO 500 mg BIDCM DAGO Administration Metoprolol Tartrate 25 mg 01/30/21 06:00 02/01/21 06:22 Metoprolol Tartrate 25 Mg Tablet PO 25 mg BID DAGO Administration Mirtazapine 15 mg 01/30/21 22:00 01/31/21 23:13 Mirtazapine 15 Mg Tablet PO 15 mg QHS DAGO Administration Nitroglycerin 0.4 mg 01/29/21 23:46 Nitroglycerin (Inpatient Use) 0.4 Mg Tab.Subl SL Q5M PRN Angina Ondansetron HCl 4 mg 01/29/21 23:46 Ondansetron Odt 4 Mg Tablet PO Q8H PRN PRN Nausea Pantoprazole Sodium 40 mg 01/30/21 06:00 02/01/21 06:22 Pantoprazole Sodium 40 Mg Tablet PO 40 mg DAILY DAGO Administration Polyethylene Glycol 17 gm 01/30/21 06:00 02/01/21 09:01 Polyethylene Glycol 3350 17 Gm Packet PO 17 gm DAILY DAGO Administration Ranolazine 500 mg 01/30/21 06:00 02/01/21 06:22 Ranolazine 500 Mg Tablet PO 500 mg BID DAGO Administration Rivaroxaban 20 mg 01/30/21 06:00 02/01/21 06:21 Rivaroxaban 20 Mg Tablet PO 20 mg DAILY DAGO Administration Tramadol HCl 50 mg 01/29/21 23:46 Tramadol 50 Mg Tablet PO Q4H PRN PRN Mod-Severe Pain (-12/06) Tuberculin PPD 0.1 ml 02/06/21 10:00 Tuberculin,Purif.Prot.Deriv. 50 Tu/Ml Vial ID 02/06/21 10:01 X1 ONE Problem List (Last Reviewed 01/29/21 @ 23:[address] Yoan Valenzuela MD) Hypertension (Chronic) Chronic nausea (Chronic) Diabetes mellitus (Acute) Gastroesophageal reflux disease (Acute) Depression (Acute) Hyperlipidemia (Acute) Coronary artery disease (Acute) Stroke (Acute) Obstructive sleep apnea (Acute) Encephalopathy (Acute) Debility (Acute) Vital Signs Temp Pulse Resp BP Pulse Ox 96.9 F L 64 16 109/70 95 02/01/21 06:20 02/01/21 06:22 02/01/21 06:20 02/01/21 06:22 02/01/21 06:20 Oxygen Delivery Method Room Air Weight: 102.058 kg Body Mass Index (BMI) 28.8 Sodium 138 mmol/L (136-145) 01/30/21 07:37 Potassium 3.8 mmol/L (3.5-5.1) 01/30/21 07:37 Chloride 105 mmol/L (98-107) 01/30/21 07:37 Carbon Dioxide 24.0 mmol/L (21.0-32.0) 01/30/21 07:37 Anion Gap 9 (5-15) 01/30/21 07:37 BUN 12 mg/dL (7-18) 01/30/21 07:37 Creatinine 0.97 mg/dL (0.70-1.30) 01/30/21 07:37 Est GFR (MDRD) Af Amer 95 mL/min (>60) 01/30/21 07:37 Est GFR (MDRD) Non-Af 79 mL/min (>60) 01/30/21 07:37 BUN/Creatinine Ratio 12.4 RATIO (10-20) 01/30/21 07:37 Glucose 181 mg/dL (74-106) H 01/30/21 07:37 Assessment/Plan: 1. Pain: acetaminophen 1000mg PO Q6H PRN pain 1-3/10 and tramadol 50mg PO Q4H PRN pain 4-10. Please continue to monitor for increased pain and PRN usage. 2. CAD/atrial fibrillation: metoprolol tartrate 25mg PO BID, rivaroxaban 20mg PO DINNER, ranolazine 500mg PO BID and nitroglycerin 0.4mg SL Q5M PRN chest pain. Please continue to monitor BP (last 109/70), HR (last 64), hemoglobin (last 13.1g/dL), S/S of bleeding and chest pain. *3. Hyperlipidemia: atorvastatin 40mg PO QHS. Please consider ordering a lipid panel if clinically appropriate. Last lipid panel from 04/2017. Thanks. Please continue to monitor for muscle pain. 4. Adrenal insufficiency: dexamethasone 2mg PO MWF. Please continue to monitor for S/S of infection and upset stomach. 5. Edema: furosemide 20mg PO daily PRN edema. Please continue to monitor for S/S of edema. 6. Post-herpetic neuritis: lamotrigine 150mg PO BID. Please continue to monitor for rash. *7. Diabetes Mellitus II: metformin 500mg PO BIDCM. Please consider ordering a hemoglobin A1c if clinically appropriate. Patient does not have one in the chart. Thanks. Please continue to monitor renal function and glucose (last 181 mg/dL). 8. GERD: pantoprazole 40mg PO daily. Please continue to monitor for S/S of GERD and diarrhea. 9. Chronic nausea: ondansetron ODT 4gm PO Q8H PRN nausea. Please continue to monitor for nausea and PRN usage. *10. Cough: guaifenesin DM liquid 5mL PO Q6H PRN cough and albuterol nebulized solution 2.5mg inhalation Q2H PRN SOB/cough/wheezing. Please consider clarifying which medication should be given first line for cough. Thanks. Please continue to monitor for cough/SOB/wheezing, PRN usage and HR. Psychotropic Medications: 1. Depression/insomnia/appetite loss: mirtazapine 15mg PO QHS. Please see physician note regarding GDR. Unnecessary Medications: None Bowel Regimen: Miralax 17gm PO daily. Please continue to monitor for constipation. Date of Note:: 02/01/21
[2021-02-01 14:49] VITALS: BP 105/68; PULSE 63; RESP 16; TEMP 36.3; O2SAT 96
--- NOTE | 2021-02-01 15:19 | NURSING ---
Resident and daughter, Melinda, notified of staff member testing positive for COVID.
--- NOTE | 2021-02-01 16:17 | CHAPLAIN ---
Type of Pastoral Visit _x__ Initial Visit ___ Follow-up Visit ___ On-call Visit ___ General Patient Visit ___ Spiritual Assessment ___ Family Conference ___ Bereavement ___ Rapid Response ___ Code Blue ___ Other (describe below) Pastoral Care Referral From _x__ Patient ___ Family ___ Nurse ___ Physician ___ Fixed Income Portfolio Manager ___ Manager Staffing ___ Other (describe below) Sacrament/Intervention _x__ Active listening ___ Anointing ___ Mandaeism ___ Bereavement ___ Communion ___ Anabela exploration ___ ___ Life review _x__ Prayer ___ Reconciliation ___ Sacrament of Sick _x__ Supportive presence ___ Wedding ___ Other (describe below) Pastoral Comments patient presents self with agreeable disposition and only answers questions but does not initiate conversation; pt welcomes presence and prayer
[2021-02-01 17:51] VITALS: PULSE 63
[2021-02-01] MEDS: Atorvastatin Calcium 40 MG Tablet PO (21:24)
[2021-02-01] MEDS: Mirtazapine 15 MG Tablet PO (21:24)
[2021-02-02 05:40] VITALS: BP 109/51; PULSE 60
[2021-02-02] MEDS: Ranolazine 500 MG Tablet PO ×2 (05:40→17:59)
[2021-02-02] MEDS: lamoTRIgine 150 MG Tablet PO ×2 (05:40→17:59)
[2021-02-02] MEDS: Polyethylene Glycol 3350 17 GM PACKET PO (05:40)
[2021-02-02] MEDS: Metoprolol Tartrate 25 MG Tablet PO ×2 (05:40→17:59)
[2021-02-02] MEDS: Pantoprazole Sodium 40 MG Tablet PO (05:41)
[2021-02-02] MEDS: Menthol/Lanolin/Calamine/Znox 113 GM Tube 1 APPLIC TOPICAL ×2 (05:41→17:59)
[2021-02-02] MEDS: metFORMIN HCl 500 MG Tablet PO ×2 (09:26→17:59)
[2021-02-02 11:00] VITALS: BP 100/66; PULSE 60; RESP 12; TEMP 36.6; O2SAT 96
--- NOTE | 2021-02-02 11:15 | NURSING ---
PT DAUGHTER SHELLI REFUSED THE PNEUMOVAX-23 AT THIS TIME FOR HER DAD PER HER SISTER RAMY DUE TO PT COUGH AND STATED SHE TALKED TO AND PT HAD THE PNEUMOVAX-23 IN 2010 AND THE PREVNAR-13 IN 2016. RN AWARE
[2021-02-02] MEDS: guaiFENesin Dm 10 ML UDC 5 ML PO ×2 (13:00→20:32)
[2021-02-02] MEDS: Albuterol 2.5 MG/3 ML VIAL.NEB. INHALATION (13:28)
[2021-02-02 13:30] VITALS: PULSE 66; RESP 16
[2021-02-02 17:58] VITALS: BP 125/69; PULSE 68
[2021-02-02 17:59] VITALS: BP 125/69; PULSE 68
[2021-02-02] MEDS: Rivaroxaban 20 MG Tablet PO (17:59)
[2021-02-02] MEDS: Mirtazapine 15 MG Tablet PO (20:26)
[2021-02-02] MEDS: Atorvastatin Calcium 40 MG Tablet PO (20:26)
[2021-02-03] MEDS: lamoTRIgine 150 MG Tablet PO ×2 (05:47→17:24)
[2021-02-03] MEDS: Ranolazine 500 MG Tablet PO ×2 (05:47→17:25)
[2021-02-03] MEDS: Pantoprazole Sodium 40 MG Tablet PO (05:47)
[2021-02-03 05:50] VITALS: BP 86/65
[2021-02-03] MEDS: Menthol/Lanolin/Calamine/Znox 113 GM Tube 1 APPLIC TOPICAL ×2 (05:50→17:26)
[2021-02-03] MEDS: guaiFENesin Dm 10 ML UDC 5 ML PO (06:49)
[2021-02-03] MEDS: metFORMIN HCl 500 MG Tablet PO ×2 (09:26→17:24)
[2021-02-03] MEDS: dexAMETHasone 2 MG TABLET PO (09:26)
--- NOTE | 2021-02-03 09:33 | CASEMGMT ---
Addendum entered by Cammy Sexton 02/04/21 11:21: [facility] pt and have SOC 12/13. Left message with dtr. Plan: DC home with [facility]ST[facility]SN Addendum entered by Cammy Sexton 02/03/21 14:49: [facility] Will await confirmation. Original Note: Social Work IDT met with patient and two daughters for care plan meeting. Discussed patient's progress in PT/OT/ST and nursing. Explained Medicare benefit. Encouraged to contact secondary insurance to ensure copay coverage. The goal is for pt to return home with 24/7 assistance. Pt has ramp to enter. Pt is active with [facility]. Broached topic that pt is x2 assist and pt needs to be x1 assist or partial x2 assistance to return home. Dtr is available to assist. At home, dtr's report pt is turned/toileted every two hours. Family is not open to SNF. Family is requesting DC home 02/05 and requesting [facility] PT/OT through [facility] or [employer] with SOC /. Family has w/c van to transport pt home. No DME needs. Pt has lift that goes throughout whole house to assist transferring pt. SW to make referrals. Plan: DC home with 24/7 care 02/05 LUCI MichaelsW
[2021-02-03 11:00] VITALS: BP 112/71; PULSE 64; RESP 15; TEMP 36.8; O2SAT 96
--- NOTE | 2021-02-03 11:30 | NURSING ---
Resident and daughter educated on the COVID Vaccine and he does not want to receive it at this time.
--- NOTE | 2021-02-03 12:18 | CASEMGMT ---
Social Work BIMS(6) and PHQ-9(3) completed this date. DOMINIC Lopez
[2021-02-03] MEDS: Rivaroxaban 20 MG Tablet PO (17:24)
[2021-02-03 17:25] VITALS: PULSE 64
[2021-02-03] MEDS: Metoprolol Tartrate 25 MG Tablet PO (17:25)
--- NOTE | 2021-02-03 22:05 | NURSING ---
Patient'd daughter called to check on patient and asked how he was doing. This Nurse told daughter patient had been sleeping since I came onto floor. Daughter also said patient had cough medicine and if needed to give it to him. Have not heard patient coughing.
[2021-02-03] MEDS: Mirtazapine 15 MG Tablet PO (22:11)
[2021-02-03] MEDS: Atorvastatin Calcium 40 MG Tablet PO (22:11)
[2021-02-04] VITALS (7 sets, daily range): BP systolic 92–117; BP diastolic 63–68; PULSE 57–68; RESP 18; TEMP 36.3; O2SAT 94–98
[2021-02-04] MEDS: Pantoprazole Sodium 40 MG Tablet PO (06:10)
[2021-02-04] MEDS: Ranolazine 500 MG Tablet PO ×2 (06:10→17:20)
[2021-02-04] MEDS: lamoTRIgine 150 MG Tablet PO ×2 (06:10→17:20)
[2021-02-04] MEDS: Menthol/Lanolin/Calamine/Znox 113 GM Tube 1 APPLIC TOPICAL ×2 (08:23→17:23)
[2021-02-04] MEDS: metFORMIN HCl 500 MG Tablet PO ×2 (08:24→17:19)
[2021-02-04] MEDS: guaiFENesin Dm 10 ML UDC 5 ML PO ×2 (17:17→21:58)
[2021-02-04] MEDS: Rivaroxaban 20 MG Tablet PO (17:19)
[2021-02-04] MEDS: Metoprolol Tartrate 25 MG Tablet PO (17:22)
--- NOTE | 2021-02-04 19:28 | PCM.DC.SUM ---
Providers Date of Admission: 01/29/21 Primary Care Physician: Dr. Gaston Yip MD Reason For Visit: CHANGE IN MENTAL STATUS Diagnosis Discharge Diagnosis (1) Debility: Status: Acute Code(s): R53.81 - Other malaise (2) Encephalopathy: Status: Acute Code(s): G93.40 - Encephalopathy, unspecified (3) Obstructive sleep apnea: Status: Acute Code(s): G47.33 - Obstructive sleep apnea (adult) (pediatric) (4) Stroke: Status: Acute Code(s): I63.9 - Cerebral infarction, unspecified (5) Coronary artery disease: Status: Acute Code(s): I25.10 - Atherosclerotic heart disease of [place] coronary artery without angina pectoris (6) Hyperlipidemia: Status: Acute Code(s): E78.5 - Hyperlipidemia, unspecified (7) Depression: Status: Acute Code(s): F32.A - Depression, unspecified (8) Gastroesophageal reflux disease: Status: Acute Code(s): K21.9 - Gastro-esophageal reflux disease without esophagitis (9) Diabetes mellitus: Status: Acute Code(s): E11.9 - Type 2 diabetes mellitus without complications (10) Chronic nausea: Status: Chronic Code(s): R11.0 - Nausea (11) Hypertension: Status: Chronic Code(s): I10 - Essential (primary) hypertension Medications at Discharge Home Medications nitroglycerin 0.4 mg sublingual tablet 0.4 mg SUBLINGUAL Q5M PRN 05/16/17 metoprolol tartrate 25 mg PO BID 01/18/18 polyethylene glycol 3350 17 gm PO DAILY 01/18/18 acetaminophen 1,000 mg PO Q6H PRN PRN 01/22/18 tramadol 50 mg tablet 50 mg PO Q4H PRN tab 03/19/18 furosemide 20 mg tablet 20 mg PO DAILY PRN PRN 12/13/18 ondansetron 4 mg PO Q8H PRN PRN #10 tab 01/06/20 lamotrigine 150 mg PO BID 01/08/20 dexamethasone 4 mg tablet 2 mg PO .COMPLEX tablet 06/18/20 atorvastatin 40 mg PO QHS 01/29/21 mirtazapine 15 mg PO QHS 01/29/21 pantoprazole 40 mg PO DAILY 01/29/21 ranolazine [Ranexa] 500 mg PO BID 01/29/21 rivaroxaban 20 mg PO DAILY 01/29/21 metformin 500 mg PO BIDCM #0 tab 02/04/21 Hospital Course Operations None Procedures None Summary of Care Provided Minutes Spent on Discharge: 35 Hospital Course: 80 year old male with below past medical history presented to [facility] [facility] with encephalopathy, unable to care for at home, admit to TCU with debility, here for rehabilitation, strengthening, prior to disposition determination. Discharge home with 19/09 [facility] 02/05/2021, [facility] PT/OT/ST/SN. Physical Exam Const alert and oriented x3 General Appearance: cooperative HEENT normocephalic Eyes PERRL and EOMs intact bilaterally Neck supple, no JVD and no carotid bruits Resp normal respiratory effort, normal air movement and clear to auscultation bilaterally Cardio regular rate and regular rhythm GI normal to inspection, nondistended, normoactive bowel sounds, non-tender and non-distended Extremity normal capillary refill General Extremity: Negative for edema Skin no rashes or lesions noted General Skin Exam: no breakdown Psych affect normal Appearance: appropriate Weight / BMI Weight Weight: 93.61 kg Body Mass Index (BMI) 28.8 ABG / Lab / Microbiology Data Result Diagrams: 01/30/21 07:37 01/30/21 07:37 D/C Instructions Discharge Diet: No restrictions Discharge Activity: Return to Normal Activity, May Shower and Use Walker Weight Bearing Status: Weight bearing as tolerated Call your doctor if you observe: Fever of 101 or Higher, Inability to urinate, Inability to have a bowel movement, Shortness of breath, Dizziness, Fainting spells, Swelling in the ankles, Chest pain and Uncontrolled pain Additional Instructions: Discharge home with 19/09 [facility] 02/05/2021, [facility] PT/OT/ST/SN. Please Follow Up With: Gaston Yip MD When: 1 week. Meaningful Use Info Meaningful Use Diagnoses (Choose all that apply): None applicable Discharge Plan Admission Admit Date/Time: 01/29/21 22:38 Primary Reason for Your Visit: Debility. Attending Provider: Yoan Valenzuela Chi Primary Care Provider: Gaston Yip Instructions Additional Instructions / Restrictions: Discharge home with 19/09 [facility] 02/05/2021, [facility] PT/OT/ST/SN. Discharge Orders/Prescriptions Prescriptions: New metformin 500 mg Tablet 500 mg PO BIDCM Qty: 0 RF: 0 Continued nitroglycerin [Nitrostat] 0.4 mg tablet, sublingual 0.4 mg SUBLINGUAL Q5M PRN (Reason: Angina) RF: 0 tramadol 50 mg tablet 50 mg PO Q4H PRN (Reason: Mod-Severe Pain ()) RF: 0 dexamethasone [Decadron] 4 mg tablet 2 mg PO .COMPLEX RF: 0 polyethylene glycol 3350 17 GM packet 17 gm PO DAILY RF: 0 metoprolol tartrate 25 MG tablet 25 mg PO BID RF: 0 acetaminophen 500 MG tablet 1,000 mg PO Q6H PRN PRN (Reason: Mild Pain (-05/06)) RF: 0 furosemide 20 mg tablet 20 mg PO DAILY PRN PRN (Reason: EDEMA) RF: 0 ondansetron 4 MG tablet 4 mg PO Q8H PRN PRN (Reason: Nausea) Qty: 10 RF: 0 lamotrigine 150 MG tablet 150 mg PO BID RF: 0 atorvastatin 40 MG tablet 40 mg PO QHS RF: 0 pantoprazole 40 MG tablet,delayed release (DR/EC) 40 mg PO DAILY RF: 0 mirtazapine 15 MG tablet 15 mg PO QHS RF: 0 ranolazine [Ranexa] 500 mg tablet extended release 12 hr 500 mg PO BID RF: 0 rivaroxaban 20 mg tablet 20 mg PO DAILY RF: 0 Discontinued vitamin E (dl, acetate) 400 unit capsule 400 unit PO QDAY RF: 0 aspirin [Adult Low Dose Aspirin] 81 mg tablet,delayed release (DR/EC) 81 mg PO QHS RF: 0 hydrocodone-acetaminophen 5-325 mg tablet 1 tablet PO BID PRNRF: 0 metformin 500 mg tablet 1,000 mg PO BID RF: 0 docusate sodium 100 MG capsule 100 mg PO DAILY RF: 0 Referrals / Follow Up: Gaston Yip MD [Primary Care Provider] - Disposition Disposition (needs filled in before D/C Order can be placed): Home Health Service
--- NOTE | 2021-02-04 20:11 | NURSING ---
Caregiver left floor at this time. Stated she would be back around 02:00.
[2021-02-04] MEDS: Atorvastatin Calcium 40 MG Tablet PO (21:57)
[2021-02-04] MEDS: Mirtazapine 15 MG Tablet PO (21:57)
[2021-02-05 00:26] VITALS: PULSE 67; RESP 18; O2SAT 96
[2021-02-05] MEDS: guaiFENesin Dm 10 ML UDC 5 ML PO (04:36)
[2021-02-05] MEDS: Pantoprazole Sodium 40 MG Tablet PO (04:37)
[2021-02-05] MEDS: Ranolazine 500 MG Tablet PO (04:37)
[2021-02-05] MEDS: Acetaminophen 500 MG Tablet 1000 MG PO ×2 (04:37→12:30)
[2021-02-05] MEDS: lamoTRIgine 150 MG Tablet PO (04:37)
[2021-02-05] MEDS: Menthol/Lanolin/Calamine/Znox 113 GM Tube 1 APPLIC TOPICAL (04:44)
[2021-02-05 04:46] VITALS: BP 86/58; PULSE 62; RESP 16; TEMP 36.1; O2SAT 94
[2021-02-05 04:48] VITALS: BP 95/54; PULSE 62
[2021-02-05 06:09] VITALS: BP 92/59; PULSE 60
--- NOTE | 2021-02-05 06:10 | NURSING ---
Blood pressure low this morning. Morning Lopressor held per nursing measure. RN's aware.
[2021-02-05 08:25] VITALS: BP 109/70; PULSE 63
[2021-02-05] MEDS: metFORMIN HCl 500 MG Tablet PO (08:25)
[2021-02-05] MEDS: dexAMETHasone 2 MG TABLET PO (08:25)
[2021-02-05 12:34] VITALS: BP 115/73; PULSE 60; RESP 18; TEMP 36.6; O2SAT 95
--- NOTE | 2021-02-09 10:40 | MDS.RN ---
Information for the mds was obtained from review of the clinical record, interview of resident, staff, and direct observation of resident's care.
== END 2021-02-05 12:40 | disposition home health service (06) | DRG 71 ==
PROVIDERS: Admitting Provider Family Medicine Geriatric Medicine; PCP Family Medicine; Visit Provider Family Medicine Geriatric Medicine
DX: G93.40 Encephalopathy, unspecified (principal); B02.29 Other postherpetic nervous system involvement; E27.40 Unspecified adrenocortical insufficiency; G30.9 Alzheimer's disease, unspecified; F02.80 Dementia in other diseases classified elsewhere, unspecified severity, without behavioral disturbance, psychotic disturbance, mood disturbance, and anxiety; I25.10 Atherosclerotic heart disease of native coronary artery without angina pectoris; I48.91 Unspecified atrial fibrillation; E11.9 Type 2 diabetes mellitus without complications; I10 Essential (primary) hypertension; I25.2 Old myocardial infarction; E78.2 Mixed hyperlipidemia; I25.5 Ischemic cardiomyopathy; K21.9 Gastro-esophageal reflux disease without esophagitis; G47.33 Obstructive sleep apnea (adult) (pediatric); F32.A Depression, unspecified; Z79.899 Other long term (current) drug therapy; Z79.84 Long term (current) use of oral hypoglycemic drugs; Z79.82 Long term (current) use of aspirin; Z79.01 Long term (current) use of anticoagulants; Z95.0 Presence of cardiac pacemaker
CPT/HCPCS: 71046; 80048; 82962; 85025; 87635; 92507; 92523; 92526; 92610; 94640; 97116; 97162; 97166; 97530; 97535; 97802; U0005; A4216; U0003